=== PATIENT | male | born 1945 | race Caucasian/White ===

== ENCOUNTER 2020-12-01 13:04 | Observation (INO) | payer MEDICARE, SELFPAY ==
--- NOTE | 2020-11-29 09:29 | EKG12_ITS ---
Test Reason : PREOP Blood Pressure : / mmHG Vent. Rate : 061 BPM Atrial Rate : 061 BPM P-R Int : 164 ms QRS Dur : 082 ms QT Int : 398 ms P-R-T Axes : 059 066 075 degrees QTc Int : 400 ms Normal sinus rhythm Normal ECG Confirmed by THERESA DE LA CRUZ, MARANDA ([id number]), managing editor LANCE TOWNSEND ([id number]) on 11/29/2020 2:19:45 PM Referred By: Julito Felder Confirmed By:MARANDA CARDENAS MD
[2020-11-29 10:40] LABS: Hematocrit 47.4 % (40-54); Hemoglobin 14.9 g/dL (13.0-16.5); Mean Corp Hgb Conc 31.4 g/dL (32-36); Mean Corpuscular Hgb 27.9 pg (27.0-32.0); Mean Corpuscular Volume 88.6 fL (80-94); Mean Platelet Vol. 9.9 fl (6.2-12.0); Platelet Count 150 K/mm3 (150-450); RBC Distribution Width CV 13.3 % (11.6-14.6); RBC Distribution Width SD 43.3 fl (35.1-43.9); Red Blood Count 5.35 M/mm3 (4.6-6.2); White Blood Count 25.8 K/mm3 (4.4-11.0)
[2020-11-29 11:18] LABS: Anion Gap 3 (5-15); BUN 18 mg/dL (7-18); BUN/Creat Ratio 14.6 RATIO (10-20); Chloride 110 mmol/L (98-107); Creatinine, Serum 1.23 mg/dL (0.70-1.30); EST Glomerular Filtration Rate 61 mL/min (>60); Est Glom Filt Rate - Afr Amer 74 mL/min (>60); Glucose 75 mg/dL (74-106); Potassium 4.1 mmol/L (3.5-5.1); Sodium Level 143 mmol/L (136-145)
[2020-12-01] VITALS (15 sets, daily range): BP systolic 109–140; BP diastolic 54–76; PULSE 51–84; RESP 12–16; TEMP 36–37; O2SAT 94–98; BMI 23.2
--- NOTE | 2020-12-01 | PROS_PTH ---
PATIENT: RICHARDSON CARVALHO LOC: MS3 U#:[id number] AGE/SX: 75/M ROOM: NE318 RE12/01/[address]: Dr. Julito Felder MD : 1945 BED: 1 DIS: 12/03/2020 SPEC #: [id number] RECD: 12/01/20 14:56 STATUS: MEGAN MAY #: [id number] NAOMIE: 12/01/20 00:[address]: Julito Felder DEPT: SURGICAL PATHOLOGY RECD BY: Chacorta King ENTERED: 12/02/20 13:29 SP TYPE: TURP OTHR DR: Dr. Waldemar Mack MD Tissues: Prostate, NOS Procedures: Surgery Specimen Level IV HEADER OPERATION: Cysto, TUR prostate, Olympus PRE-OP DIAGNOSIS: BPH, elevated PSA, retention of urine TISSUE SUBMITTED: Prostate tissue MICROSCOPIC DIAGNOSIS Prostate tissue, TUR: Benign prostatic hyperplasia, glandular and stromal type. 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 Focal basal cell hyperplasia. See comment. SJ:brittany 12/06/2020 COMMENT Immunohistochemistry ([id number]) supports the above diagnosis. This case is discussed with Dr. Felder on 12/06/2020. Case has been reviewed in consultation with Dr. Man who concurs with the above diagnosis. IDC:AM MICROSCOPIC DESCRIPTION Slides are reviewed. GROSS DESCRIPTION Received is one container labeled with the patient's name and designated prostate tissue. The specimen consists of multiple irregular fragments of pink-yarbrough, rubbery, soft tissue that in aggregate weigh 13.4 gm and measure in aggregate 6 x 6 x 0.7 cm. Tube Carrier portions are submitted in ten cassettes. / AM:brittany 12/02/20 TC:0 CPT: 96856
--- NOTE | 2020-12-01 | IMM_PTH ---
PATIENT: RICHARDSON CARVALHO LOC: MS3 U#:[id number] AGE/SX: 75/M ROOM: MD318 RE12/01/[address]: Dr. Julito Felder MD : 1945 BED: 1 DIS: 12/03/2020 SPEC #: [id number] RECD: 12/03/20 13:24 STATUS: MEGAN REQ #: [id number] NAOMIE: 12/01/20 00:[address]: uJlito Feledr DEPT: IMMUNOHISTOCHEMISTRY RECD BY: Lina Monaco ENTERED: 12/03/20 13:28 SP TYPE: IMMUNO OTHR DR: Dr. Waldemar Mack MD Tissues: Prostate, NOS Procedures: BCL-2 (add) BCL-6 (add) CD10 (add) CD20 (add) CD23 (add) CD43 (add) CD45 (add) CD5 (add) CD79A (add) CYCLIN (add) KI-67 (add) CD3 (initial) PHYSICIAN & [address] [address] SPECIMEN INFORMATION: Tissue Source: Prostate tissue Clinical Info: BPH, elevated PSA, retention of urine Specimen Number: [id number] #4 CPT code: 58885, 78521 x11 METHODOLOGY: Deparaffinized sections of prefer/formalin-fixed tissue or PAP/DQ stained slides are incubated with monoclonal/polyclonal antibodies/oligonucleotide probes. Localization is made via biotin free immunoperoxidase method. Appropriate controls are performed and reacted as expected. Results on target cell population are indicated in the following table: RESULTS: ANTIBODY / CLONE RESULT Block 4 CD3 (PS1) negative CD5 (SP10) positive CD10 (56C6) negative CD20 (L26) positive CD23 (1B12) positive CD43 (L60) positive CD45 (RP2/18) positive CD79a (11E3) positive BCL-2 (bcl-2/100/D5) positive BCL-6 (MU964A/A8) negative Cyclin D1/BCL-1 (SP4) negative Ki-67 (30-9) positive, low These tests were developed and their performance characteristics determined by [facility]. They may not have been cleared or approved by the U.S. Food and Drug Administration. The FDA has determined that such clearance or approval is not necessary. The above immunohistochemical/dualISH markers are ordered and reviewed by the Pathologist. 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 This case has been reviewed in consultation with Dr. Man who concurs with the above diagnosis. SJ:brittany 12/06/2020
[2020-12-01] MEDS: Lactated Ringers 1,000 ML 100 ML IV ×2 (10:51→14:51)
[2020-12-01] MEDS: Cefazolin 2 GM in 0.9% Normal Saline 100 ML IV (12:10)
--- NOTE | 2020-12-01 13:04 | PCM.HP.STD ---
HPI - General HPI Narrative RICHARDSON CARVALHO, is a 75 M who presents for transurethral resection of prostate he has obstructive large prostate PFSH Medical History (Updated 12/01/20 @ 13:[address] Julito Felder MD) Cardiology follow-up encounter COPD (chronic obstructive pulmonary disease) Easy bruising Former smoker Gastric reflux History of leukemia Prostate disease Wears glasses Home Medications aspirin 81 mg PO DAILY 11/24/20 [History Last Taken Unknown] atorvastatin 20 mg PO QHS 11/24/20 [History Last Taken Unknown] budesonide-formoterol [Symbicort] 2 puff INHALATION BID 11/24/20 [History Last Taken Unknown] famotidine 20 mg PO DAILY 11/24/20 [History Last Taken Unknown] metoprolol tartrate 12.5 mg PO BID 11/24/20 [History Last Taken Unknown] ciprofloxacin HCl [Cipro] 500 mg PO BID #14 tab 12/01/20 [Rx Last Taken Unknown] Allergy/AdvReac Type Severity Reaction Status Date / Time Sulfa (Sulfonamide Allergy Swelling Verified 12/01/20 10:43 Antibiotics) Surgical History (Updated 11/24/20 @ 11:30 by Bernadette Gusman) Status post heart valve replacement Status post incision and drainage Social History Smoking Status: Former smoker ROS Constitutional Constitutional: Denies chills, fever(s) or malaise Eyes Eyes: Denies blurry vision or change in vision ENT HEENT: Reports none Cardiovascular Cardiovascular: Denies chest pain or palpitations Respiratory/Chest Respiratory/Chest: Denies cough or shortness of breath with exertion Gastrointestinal Gastrointestinal: Denies abdominal pain, constipation or diarrhea Musculoskeletal Musculoskeletal: Denies back pain, joint stiffness or joint swelling Integumentary Integumentary: Denies dry skin, jaundice, lesions or rash Neurologic Neurologic: Denies confusion, syncope or weakness Psychiatric Psychiatric: Reports none; Denies anxiety or depression Endocrine Endocrinology: Denies excessive sweating, fatigue or flushing Hematologic/Lymphatic Hematologic/Lymphatic: Denies anemia, easy bleeding or easy bruising Vital Signs Vital Signs Vital Signs: 12/01/20 10:45 Temperature 97.7 F L Temperature Source Temporal Pulse Rate 63 Respiratory Rate 16 Respiratory Pattern Normal Blood Pressure 140/76 H Blood Pressure Mean 97 Blood Pressure Source Monitor Blood Pressure Position Semi-Fowlers Blood Pressure Location Left Arm Pulse Ox 97 Oxygen Delivery Method Room Air Weight Weight: 71.4 kg Body Mass Index (BMI) 23.2 Physical Exam Const alert and oriented x3 General Appearance: cooperative HEENT normocephalic, head/scalp atraumatic, EAC's normal and TM's normal bilaterally Eyes PERRL and EOMs intact bilaterally Pupil: sluggish Neck no lymphadenopathy, supple and no JVD General: trachea midline Lymph Lymphatic: no lymphadenopathy noted, lymphedema and lymphadenopathy Resp normal respiratory effort, normal air movement and clear to auscultation bilaterally Cardio regular rate, regular rhythm and peripheral pulses 2+ throughout GI soft to palpation, non-tender and non-distended Extremity normal capillary refill and no clubbing, cyanosis or edema General Extremity: no tenderness to palpation of joints or extremities Skin no rashes or lesions noted General Skin Exam: turgor normal Lesions: no lesions Rashes: no rashes Neuro CN's II-XII intact bilaterally Speech: speech normal Motor Exam: strength 5/5 throughout; Negative for general weakness Psych thought process normal, cooperative and affect normal Appearance: appropriate Results Lab / Micro Data Result Diagrams: 11/29/20 09:18 11/29/20 09:18 Assessment & Plan Assessment/Plan (1) BPH with obstruction/lower urinary tract symptoms: PLAN: Plan to proceed with a TURP
--- NOTE | 2020-12-01 13:05 | OP.PCM_ITS ---
Report of Operation Date of Procedure: 12/01/20 Pre-Operative Diagnosis: BPH with obstruction Post-Operative Diagnosis: Same Surgery/Procedure Performed:: Transurethral resection of the prostate Description of Surgical Findings:: In the preoperative setting I discussed with the patient how the surgery would be done with expect afterwards. We discussed how a prostate resection is done and we discussed the risk of the surgery including, bleeding, infection, retrograde ejaculation, changes with ejaculation or intercourse,. We discussed the possibility that the resection of the prostate may not alleviate his urinary symptoms. We discussed the small risk of developing scar tissue along the urethral channel and strictures. We also discussed the chance of the prostate could grow back and he may need further surgery or treatment in the future for prostate problems. Patient was taken back to the operating room, timeout procedure was performed, he was identified and marked and placed on the operating room table. He underwent general anesthesia. He was placed in dorsolithotomy position. Penis and testicles were prepped and draped in usual sterile fashion. Went into the bladder using the visual obturator with a resectoscope. Once inside the bladder identified the right and left ureteral orifice. I then identified the prostate and the anatomy of the prostate. I marked out the area of the sphincter and the verumontanum was identified. I then proceeded with the prostate resection first resected the median lobe. And then resected the right lobe of the prostate. Then to resect the left lobe of the prostate. I then resected the apical tissue of the prostate. Made sure that there was no injury to the sphincter or the verumontanum was still intact. At the end of the resection all the chips were Ellik out of the bladder. I then identified the left and right ureteral orifice and these were confirmed to be in good position and effluxing and not injured. The resectoscope was removed, a 22 Anguillan catheter was placed into the bladder on continuous irrigation. And the urine was fairly light pink color and draining normally. He was taken back to the PACU in good condition. Surgeon: Julito Felder Type of Anesthesia: General Drains: 22 Anguillan three-way catheter Admit VTE Documentation VTE Present on Admission: No VTE Mechan Device Prophylaxis: SCD's
--- NOTE | 2020-12-01 13:05 | PCM.DC ---
Discharge Instructions Diet Discharge Diet: No restrictions Activity Discharge Activity: Return to Normal Activity and May Not Drive (while taking narcotic pain medications.) Dressing / Incision Call your doctor if you observe: Fever of 101 or Higher Follow Up Care Please Follow Up With: Julito Felder MD When: Call [phone] for an appointment Test Results: Test results from this visit will be discussed in further detail at your follow-up appointment, if applicable. Discharge Plan Admission Primary Reason for Your Visit: turp Attending Provider: Julito Felder Consulting Providers: Waldemar Mack Discharge Orders/Prescriptions Prescriptions: New ciprofloxacin HCl [Cipro] 500 mg tablet 500 mg PO BID Qty: 14 RF: 0 Continued atorvastatin 20 mg Tablet 20 mg PO QHS RF: 0 famotidine 20 mg Tablet 20 mg PO DAILY RF: 0 metoprolol tartrate 25 mg Tablet 12.5 mg PO BID RF: 0 budesonide-formoterol [Symbicort] 160-4.5 mcg/actuation Hfa Aerosol Inhaler 2 puff INHALATION BID RF: 0 Held aspirin 81 mg Tablet 81 mg PO DAILY RF: 0 Hold Instructions: Resume on 12/15/20. Discontinued tamsulosin 0.4 mg Capsule 0.4 mg PO BID RF: 0 finasteride 5 mg Tablet 5 mg PO DAILY RF: 0 Other Ambulatory Orders: 12 Lead EKG (Routine) Timeframe: [id number] Location: None Selected Ordered By: Dr. Waldemar Mack Referrals / Follow Up: cynthia wolf [Other] Julito Felder MD [STAFF PHYSICIAN] - Disposition Disposition (needs filled in before D/C Order can be placed): Home, Self Care
[2020-12-01] MEDS: Ketorolac 15 MG/ML Vial IV (17:48)
[2020-12-01] MEDS: 0.9% Normal Saline 1,000 ML 125 ML IV (17:48)
[2020-12-01] MEDS: 0.9% Normal Saline 1,000 ML 999 ML IV (18:26)
[2020-12-01] MEDS: Albuterol 2.5 MG/3 ML VIAL.NEB. INHALATION (19:17)
[2020-12-01] MEDS: Budesonide Respules 0.5 MG/2 ML AMPUL.NEB. INHALATION (19:17)
[2020-12-01] MEDS: HYDROcodone Bitartrate/Apap 5/325 Tablet PO (21:04)
[2020-12-01] MEDS: Metoprolol Tartrate 25 MG Tablet 12.5 MG PO (21:05)
[2020-12-01] MEDS: Ciprofloxacin 400 MG/200 ML BAG 200 MG IV (21:05)
[2020-12-01] MEDS: Atorvastatin Calcium 20 MG Tablet PO (21:05)
[2020-12-02] VITALS (10 sets, daily range): BP systolic 103–133; BP diastolic 50–68; PULSE 53–71; RESP 16–18; TEMP 36.4–36.9; O2SAT 93–97; BMI 23.2
[2020-12-02] MEDS: 0.9% Normal Saline 1,000 ML 125 ML IV ×3 (03:50→21:41)
[2020-12-02] MEDS: Budesonide Respules 0.5 MG/2 ML AMPUL.NEB. INHALATION ×2 (07:18→18:48)
[2020-12-02] MEDS: Albuterol 2.5 MG/3 ML VIAL.NEB. INHALATION ×2 (07:18→18:48)
[2020-12-02] MEDS: Ciprofloxacin 400 MG/200 ML BAG 200 MG IV (08:40)
[2020-12-02] MEDS: Famotidine 20 MG Tablet PO (08:42)
--- NOTE | 2020-12-02 09:45 | NURSING ---
Patient reports he is nauseated and dizzy. He requests something for nausea. See mar. will continue to monitor.
[2020-12-02] MEDS: Ondansetron 4 MG/2 ML Vial IV (09:57)
--- NOTE | 2020-12-02 10:41 | PHA.DC.MC ---
Pharmacy Service has performed discharge medication reconciliation and counseling for this patient. The patient was counseled on the following discharge medications and changes in medications for homegoing were reviewed. 1. CIPROFLOXACIN The Reason for Use, instructions for use, and potential side effects were reviewed for all new medications. The patient's questions regarding all of their medications were answered. The patient was able to verbally demonstrate an understanding of their discharge medications. Home Medications aspirin 81 mg PO DAILY 11/24/20 atorvastatin 20 mg PO QHS 11/24/20 budesonide-formoterol [Symbicort] 2 puff INHALATION BID 11/24/20 famotidine 20 mg PO DAILY 11/24/20 metoprolol tartrate 12.5 mg PO BID 11/24/20 ciprofloxacin HCl [Cipro] 500 mg PO BID #14 tab 12/01/20 The patient's discharge medication list was reviewed for discrepancies and discrepancies were resolved.
--- NOTE | 2020-12-02 14:47 | NURSING ---
This RN reviewed SN charting
[2020-12-02] MEDS: Metoprolol Tartrate 25 MG Tablet 12.5 MG PO (21:51)
[2020-12-02] MEDS: Atorvastatin Calcium 20 MG Tablet PO (21:51)
[2020-12-03 02:58] VITALS: BP 114/67; PULSE 63; RESP 15; TEMP 36.8; O2SAT 98
[2020-12-03] MEDS: 0.9% Normal Saline 1,000 ML 125 ML IV (05:42)
[2020-12-03 07:44] VITALS: PULSE 61; RESP 16; O2SAT 94
[2020-12-03] MEDS: Budesonide Respules 0.5 MG/2 ML AMPUL.NEB. INHALATION (07:44)
[2020-12-03] MEDS: Albuterol 2.5 MG/3 ML VIAL.NEB. INHALATION (07:44)
[2020-12-03 08:03] VITALS: BP 121/62; PULSE 69; RESP 16; TEMP 36.6; O2SAT 94
[2020-12-03 08:05] VITALS: PULSE 69
[2020-12-03] MEDS: Famotidine 20 MG Tablet PO (08:05)
[2020-12-03] MEDS: Metoprolol Tartrate 25 MG Tablet 12.5 MG PO (08:05)
== END 2020-12-03 09:53 | disposition home or self-care (01) ==
LOC: SDC 13:16 → MS3 13:16
PROVIDERS: Anesthesiology; Admitting Provider Urology; Referring Provider Urology; Visit Provider Urology
PROC: (CPT 52601; principal; 2020-12-01 12:25)
DX: N40.1 Benign prostatic hyperplasia with lower urinary tract symptoms (principal); N13.8 Other obstructive and reflux uropathy; J44.9 Chronic obstructive pulmonary disease, unspecified; K21.9 Gastro-esophageal reflux disease without esophagitis; Z87.891 Personal history of nicotine dependence; Z86.2 Personal history of diseases of the blood and blood-forming organs and certain disorders involving the immune mechanism; Z85.6 Personal history of leukemia; Z79.51 Long term (current) use of inhaled steroids; Z79.82 Long term (current) use of aspirin; Z79.899 Other long term (current) drug therapy; Z95.2 Presence of prosthetic heart valve
CPT/HCPCS: 00914; 52601; 36415; 80048; 85027; 88305; 88341; 88342; 93005; 94640; 96361; 96365; 96366; 96375; 99218; 99251; J7030; J7120; G0378; G0379; G0463; J0744; J2405

== ENCOUNTER → 2021-01-05 14:32 | Outpatient (CLI) | payer MEDICARE, SELFPAY ==
--- NOTE | 2021-01-05 14:45 | CT_ITS ---
INDICATION: CLL EXAMINATION: CT Chest Abdomen And Pelvis W/ Contrast Injection TECHNIQUE: Images were obtained of the chest, abdomen and pelvis following IV contrast. A radiation dose optimization technique was used for this scan. IV Contrast dosage and agent: Oral and amp; IV REDICAT and amp; 100ML ISOVUE 370 COMPARISON: None. FINDINGS: Lungs: Marked centrilobular emphysematous changes. Right apical pleural scarring. Few scattered tiny solid pulmonary nodules including a 3 mm nodule in the right lower lobe (axial image 88), a 4 mm solid nodule in the right middle lobe (axial image 71) and a 3 mm solid nodule in the left lung base (axial image 101). Mediastinum: The cardiomediastinal silhouette is not enlarged. No mediastinal, hilar or axillary adenopathy. Mild aortic arch and coronary artery calcifications. No obvious filling defect seen within the visualized pulmonary arteries. Pleura: Right apical pleural scarring. Liver: 1.8 cm simple cyst in the left hepatic lobe. Gallbladder: Contracted. Spleen: Subcentimeter hypodensity in the anterior aspect of the spleen is too small characterize. Pancreas: Unremarkable Adrenal Glands: Unremarkable Kidneys: Scattered too small to characterize subcentimeter hypodensities bilaterally. Vasculature: Mild scattered aortoiliac atherosclerotic calcifications. GI Tract: There is irregular asymmetric wall thickening of the greater curvature of the stomach. There is also asymmetric wall thickening of the third and fourth portions of the duodenum. Lymphadenopathy: There is gastric, periduodenal and retroperitoneal lymphadenopathy, for example a 3.6 x 2.1 cm gastric lymph node conglomerate (axial image 25). Peritoneum: No ascites. Bladder: Unremarkable Reproductive organs: The prostate is markedly enlarged. Status post prostatic urethra dilatation. Bones/Soft tissues: There are diffuse degenerative changes of the spine. CT/CT Chest, Abd, Pel w/Contrast IMPRESSION: Irregular asymmetric wall thickening of the greater curvature of the stomach and third/fourth portion of the duodenum. This is concerning for leukemic infiltrates and/or plaques in this patient with known CLL. There is also gastric, periduodenal and retroperitoneal lymphadenopathy. Marked prostatomegaly with evidence of prostatic urethral dilatation. Scattered 3 to 4 mm solid pulmonary nodules throughout the bilateral lungs. Electronically Signed: Sidney Braxton MD at 23:38 EDT Tel , Service support ,
== END ==
PROVIDERS: PCP Internal Medicine Infectious Disease; Referring Provider Internal Medicine Medical Oncology; Visit Provider Internal Medicine Medical Oncology
DX: C91.10 Chronic lymphocytic leukemia of B-cell type not having achieved remission (principal)
CPT/HCPCS: 71260; 74177; Q9967

== ENCOUNTER → 2022-04-25 | Outpatient (CLI) | payer MEDICARE, SELFPAY ==
[2022-04-25 16:44] LABS: PSA,Total- Diagnostic 8.46 ng/mL (0.0-4.0)
== END | disposition home or self-care (01) ==
LOC: LAB 15:33
PROVIDERS: PCP Internal Medicine Infectious Disease; Referring Provider Urology; Visit Provider Urology
DX: N40.1 Benign prostatic hyperplasia with lower urinary tract symptoms (principal)
CPT/HCPCS: 36415; 84153

== ENCOUNTER → 2022-12-25 | Outpatient (CLI) | payer MEDICARE, SELFPAY ==
--- NOTE | 2022-12-25 13:10 | CT_ITS ---
STUDY: CT CHEST, ABDOMEN T PELVIS WITH CONTRAST REASON FOR EXAM: Male, 77 years old. RESTAGING CLL-IV ONLY RADIATION DOSAGE (If Supplied By Facility): CTDIvol = ( 10.62 ) mGy, DLP = ( 1018.02 ) mGycm TECHNIQUE: Transaxial imaging was performed following intravenous administration of IV 100mL Isovue-370. Multiplanar coronal and sagittal images were reformatted. Individualized dose optimization techniques were used for this CT. COMPARISON: Comparison is made with prior examination dated January 05, 2021. FINDINGS: CHEST Hyperinflation. Diffuse emphysematous changes more prominent in the upper lobes. Stable 2 mm noncalcified nodule in the peripheral lateral aspect of the right lower lobe as seen on axial image #96. Stable 3 mm nodule in the right middle lobe. Stable 3 mm nodule in the left lower lobe. There is no demonstrated pleural abnormality. Sternal cerclage wires and vascular clips are present from a prior sternotomy and coronary artery bypass graft procedure (CABG). There are calcifications of the coronary arteries. There are small lymph nodes within the mediastinum, which are normal in size and morphology most compatible with reactive lymph hyperplasia. Normal hilar regions. Normal unenhanced pulmonary arteries. Normal aorta arch and descending thoracic aorta. Normal osseous structures. ABDOMEN Stable 1.8 cm simple cyst in the left lobe of the liver. Normal gallbladder and extrahepatic biliary system. Normal spleen. Normal pancreas. Normal bilateral adrenal glands. Stable 2 cm cyst in the right kidney. Normal left kidney. Normal visualized stomach. Normal small intestine. Normal colon. The appendix is visualized and appears normal. There is diffuse atherosclerotic calcification of the abdominal aorta and its major visceral branches, without a demonstrated aneurysm. Normal inferior vena cava. There is borderline retroperitoneal lymphadenopathy with enlarged nodes no greater than 10mm in the short axis diameter. Normal abdominal wall. There are diffuse degenerative changes of the visualized lumbar spine. PELVIS Normal urinary bladder. Heterogeneous enlargement of the prostate with the indentation at the bladder base and calcification. There is no pelvic fluid. There is no pelvic lymphadenopathy or mass lesion. There is diffuse atherosclerotic calcification of the pelvic arteries. CT/CT Chest, Abd, Pel w/Contrast IMPRESSION: Essentially stable examination. Electronically Signed: Juma Lombardi MD at 15:42 EDT ,
--- NOTE | 2022-12-25 13:10 | CT_ITS ---
STUDY: CT SOFT TISSUE NECK WITH CONTRAST REASON FOR EXAM: Male, 77 years old. RESTAGING CLL RADIATION DOSAGE (If Supplied By Facility): CTDIvol = ( 10.62 ) mGy, DLP = ( 1018.02 ) mGycm TECHNIQUE: The patient was scanned in a multi-detector CT scanner. High resolution transaxial imaging was performed following intravenous administration of IV 100mL Isovue-370. Sagittal and coronal images were reconstructed. Individualized dose optimization techniques were used for this CT. COMPARISON: None. FINDINGS: There is a 9 mm by 12.8 mm x 13.6 mm slightly irregular and enhancing nodule in the deep inferior medial portion of the right parotid gland. Normal bilateral delivery manager spaces. Normal bilateral parapharyngeal spaces. Normal bilateral carotid spaces. Normal bilateral sublingual and submandibular glands and spaces. Normal visualized nasopharynx. Normal retropharyngeal space. Normal perivertebral space. Normal visualized bilateral faucial tonsils. The visualized tongue, tongue base and oropharynx are normal. The visualized cervical lymph nodes (levels I-) are within normal size limits, and maintain normal morphology. There is no demonstrated solid or cystic mass lesion. There is no abnormal contrast enhancement. Normal epiglottis, bilateral vallecula and hypopharynx. The pre-epiglottic and paraglottic adipose spaces are normal. Normal visualized bilateral piriform sinuses, aryepiglottic folds, vocal cords, and arytenoid-cricoid articulations. Normal subglottic trachea. Normal bilateral lobes of the thyroid gland. Normal visualized pulmonary apices. Mucosal thickening of the ethmoid sinuses. There is multilevel degenerative changes of the cervical spine. CT/Soft Tissue Neck WITH Contrast IMPRESSION: 9 mm x 12.8 mm x 13.6 mm slightly irregular and enhancing nodule in the deep inferior medial portion of the right parotid gland. Electronically Signed: Juma Lombardi MD at 15:36 EDT ,
[2022-12-25 13:42] LABS: CREATININE FINGERSTICK 1.3 mg/dL (0.70-1.30)
== END | disposition home or self-care (01) ==
PROVIDERS: PCP Internal Medicine Infectious Disease; Referring Provider Internal Medicine Medical Oncology; Visit Provider Internal Medicine Medical Oncology
DX: C91.10 Chronic lymphocytic leukemia of B-cell type not having achieved remission (principal); R79.89 Other specified abnormal findings of blood chemistry
CPT/HCPCS: 70491; 71260; 74177; Q9967

== ENCOUNTER → 2023-01-18 | Outpatient (CLI) | payer MEDICARE, SELFPAY ==
--- NOTE | 2023-01-18 09:45 | RAD_ITS ---
STUDY: X-RAY - ESOPHAGUS (BARIUM SWALLOW) WITH FLUOROSCOPY REASON FOR EXAM: Male, 77 years old. DYSPHAGIA TECHNIQUE: 18 view(s) of the esophagus were obtained following swallowing of barium. FLUOROSCOPY TIME (if supplied): (34 seconds) minutes/seconds. 18 fluoroscopic images were obtained. COMPARISON: None. FINDINGS: There is no demonstrated esophageal foreign body. There is no demonstrated stricture or mucosal abnormality. Normal gastroesophageal junction, without a demonstrated hiatal hernia. The patient ingested a 12 mm tablet of barium without any difficulty. Incidental note is made of mild degree of aspiration of the thin liquids. Normal visualized aortic arch and descending thoracic aorta. Normal visualized pulmonary parenchyma. There are diffuse degenerative changes of the visualized thoracic spine. RAD/Esophagus Dual Contrast IMPRESSION: Normal plain film x-ray examination (barium swallow) of the esophagus. Mild aspiration of the ingested fluids. Electronically Signed: Juma Lombardi MD at 14:19 EDT ,
== END | disposition home or self-care (01) ==
LOC: RAD 09:36
PROVIDERS: PCP Internal Medicine Infectious Disease; Referring Provider Otolaryngology; Visit Provider Otolaryngology
DX: R13.10 Dysphagia, unspecified (principal)
CPT/HCPCS: 74221

== ENCOUNTER → 2023-01-22 | Outpatient (CLI) | payer MEDICARE, SELFPAY ==
--- NOTE | 2023-01-22 | ASPOS_PTH ---
PATIENT: RICHARDSON CARVALHO LOC: [facility] U#:[id number] AGE/SX: 77/M ROOM: RE01/22/[address]: Dr. Ronal Gurrola MD : 1945 BED: DIS: 01/22/2023 SPEC #: [id number] RECD: 01/22/23 10:38 STATUS: MEGAN MAY #: [id number] NAOMIE: 01/22/23 00:[address]: Ronal Gurrola DEPT: CYTOLOGY RECD BY: Chacorta King ENTERED: 01/22/23 10:38 SP TYPE: ASP HERE OTHR DR: Dr. Shira Lopez MD Tissues: Parotid gland, NOS Procedures: Surgery Specimen Level IV Cytology Other Fine Needle Asp on Site HEADER OPERATION: Fine needle aspiration, right parotid mass PRE-OP DIAGNOSIS: Right parotid mass TISSUE SUBMITTED: Right parotid mass DIAGNOSIS CYTOLOGY Fine needle aspiration, right parotid mass (smears and cell block): Oncocytic neoplasm consistent with Warthin's tumor. AM:brittany 01/23/2023 COMMENT A fine needle aspiration was performed and the specimen is evaluated at the time of FNA by Dr. Man. Immediate Evaluation = Oncocytic neoplasm consistent with Warthin's tumor. CYTOLOGY STUDY Slides are reviewed. CYTOLOGY GROSS Received is 0.2 ml of reddish fluid labeled with the patient's name, and designated right parotid mass. Six imprints and four paps are made from the submitted fluid and the rest is added to CytoLyt for cell block preparation. Submitted for cytology study. / AM:brittany 01/22/2023 TC:1 CPT: 94391, 52738, 38306, 27630
== END | disposition home or self-care (01) ==
PROVIDERS: PCP Internal Medicine Infectious Disease; Referring Provider Otolaryngology; Visit Provider Otolaryngology
DX: D11.9 Benign neoplasm of major salivary gland, unspecified (principal)
CPT/HCPCS: 10021; 88161; 88305

== ENCOUNTER 2024-11-20 07:41 | Outpatient (CLI) | payer MEDICARE, SELFPAY ==
[2024-11-20] VITALS (15 sets, daily range): BP systolic 95–144; BP diastolic 51–92; PULSE 64–91; RESP 16–23; TEMP 36.5; O2SAT 90–99; BMI 20.5
[2024-11-20 08:19] LABS: Prothrombin Time (Protime)PT. 13.0 SECONDS (11.7-14.9)
[2024-11-20 08:20] LABS: Partial Thromboplast Time 26.9 Seconds (24.1-36.2)
[2024-11-20] MEDS: 0.9% Saline Lock 10 ML Syringe IV (08:26)
[2024-11-20] MEDS: Midazolam 2 MG/2 ML Syringe IV (09:08)
[2024-11-20] MEDS: fentaNYL 100 MCG/2 ML Ampul IV (09:09)
--- NOTE | 2024-11-20 09:10 | CT_ITS ---
EXAM: CT-guided biopsy of the right upper lobe mass. CLINICAL HISTORY: Right upper lobe pulmonary mass. COMPARISON: Prior PET scan dated November 04, 2024. TECHNIQUE: Dose report: CTDI L volume: 18.99. DLP: 302.79 CT-guided core biopsy of the right upper lobe nodule. The patient was in the supine position. Conscious sedation was performed. The patient received 2 mg of Versed and 50 mcg of fentanyl intravenously. Conscious sedation was started at 9:08 a.m. and terminated at 9:35 a.m.. The patient was independently monitored by the department nurse. The overlying skin was prepped and draped in the usual sterile fashion. Following local anesthetic application and direct fluoroscopic guidance, a 20 gauge core biopsy needle was placed into the mass in the right upper lobe. 9 core biopsies were obtained. The specimen was deemed adequate by the pathologist. The patient tolerated the procedure well. No immediate complication is seen. FINDINGS: CT-guided core biopsies of the right upper lobe nodule. CT/Biopsy/Inj or Needle Placement IMPRESSION: Successful CT-guided core biopsies of the right upper lobe pulmonary nodule. The patient tolerated the procedure well. Reading Location: [place] [address]
[2024-11-20] MEDS: Lidocaine 2% (20 ml mdv) 20 ML Vial INFILT (09:24)
--- NOTE | 2024-11-20 09:30 | ASPIGT_PTH ---
PATIENT: RICHARDSON CARVALHO LOC: CT U#:[id number] AGE/SX: 79/M ROOM: RE11/20/[address]: JAROD Pro : 1945 BED: DIS: 11/20/2024 SPEC #: [id number] RECD: 11/20/24 09:45 STATUS: MEGAN REBlaise #: [id number] NAOMIE: 11/20/24 09:[address]: Billie Del Rio NP DEPT: SURGICAL PATHOLOGY RECD BY: Christian Rucker ENTERED: 11/20/24 10:28 SP TYPE: ASP RAD OTHR DR: Dr. Shira Lopez MD Tissues: A - Lung, NOS Procedures: FNA Specimen Adequacy Special Stain Group II Surgery Specimen Level IV Imprint (control) HEADER OPERATION: Right lung biopsy PRE-OP DIAGNOSIS: Lung mass - right middle lobe TISSUE SUBMITTED: A- Lung nodule - 20 gauge x 9 cores MICROSCOPIC DIAGNOSIS A. Right lung, middle lobe, mass, CT-guided core biopsy: - Fibrosis, mild chronic inflammation, anthracosis - see Comment. - Negative for malignancy - see note. Note: Recommend correlation with clinical and imaging findings. COMMENT Selected slides/images were reviewed in intradepartmental consultation by Dr Demond Leon (thoracic pathology division, [facility]). MICROSCOPIC DESCRIPTION Slides are reviewed. The specimen is evaluated at the time of biopsy by Dr. Macario. Immediate Evaluation = 1. Right upper lobe - Few epithelial cells and macrophages. 2. Right lower lobe - Scant cellularity. 3. Scant cellularity. 4. Blood. GROSS DESCRIPTION A. Received in formalin labeled with the patient's name and date of are multiple yarbrough-red tissue core fragments, <0.1 cm to 0.4 cm in length by <0.1 cm in diameter. Touch preparations are made. Entirely submitted in 1 cassette. [place] 11/20/2024 CPT:99724,69609
--- NOTE | 2024-11-20 09:40 | RAD_ITS ---
EXAM: XR Chest, 1 View CLINICAL INDICATION: POST LUNG BIOPSY TECHNIQUE: Frontal view of the chest with expiration and inspiration. COMPARISON: No relevant prior studies available. FINDINGS: LUNGS AND PLEURAL SPACES: Patchy airspace disease of the right upper lung field could be secondary to recent procedure. Small right apical pneumothorax. Hyperlucent lungs. Flattening of the diaphragm. HEART: Unremarkable. No cardiomegaly. MEDIASTINUM: Unremarkable. Normal mediastinal contour. BONES/JOINTS: Unremarkable. No acute fracture. RAD/Chest Insp/Exp 2 View IMPRESSION: 1. Patchy airspace disease of the right upper lung field could be secondary to recent procedure. Small right apical pneumothorax. 2. Suggestion of COPD. Reading Location: [facility]
--- NOTE | 2024-11-20 11:25 | RAD_ITS ---
EXAM: Inspiration expiration views. CLINICAL HISTORY: Status post right lung biopsy. COMPARISON: Prior study done earlier in the day. TECHNIQUE: Inspiration expiration views. FINDINGS: Stable small right apical pneumothorax following the biopsy. The patient is asymptomatic. RAD/Chest Insp/Exp 2 View IMPRESSION: Stable small right apical pneumothorax following the right lung biopsy. The pa tient is asymptomatic. Reading Location: [place] [id number]
== END 2024-11-20 23:59 | disposition home or self-care (01) ==
PROVIDERS: Radiology Diagnostic Radiology; PCP Internal Medicine Infectious Disease; Referring Provider Nurse Practitioner Family; Visit Provider Nurse Practitioner Family
DX: Z01.818 Encounter for other preprocedural examination (principal); J60 Coalworker's pneumoconiosis; R91.1 Solitary pulmonary nodule
CPT/HCPCS: 32408; 36415; 71046; 77012; 85610; 85730; 88172; 88305; 88313; 99156; A4216; C2613

== ENCOUNTER → 2024-11-26 | Outpatient (CLI) | payer MEDICARE, SELFPAY | END | disposition home or self-care (01) | LOC: PSN 09:10 | PROVIDERS: PCP Internal Medicine Infectious Disease; Referring Provider Internal Medicine Critical Care Medicine; Visit Provider Internal Medicine Critical Care Medicine | DX: J44.9 Chronic obstructive pulmonary disease, unspecified (principal) | CPT/HCPCS: 94060; 94726; 94729 ==

== ENCOUNTER → 2024-11-27 | Outpatient (CLI) | payer MEDICARE, SELFPAY ==
[2024-11-27 12:56] VITALS: PULSE 100; PULSE 101; PULSE 102; PULSE 86; PULSE 88; PULSE 99; O2SAT 93; O2SAT 95; O2SAT 96; O2SAT 98
--- NOTE | 2024-11-28 12:49 | PCM.PSN.6M ---
PSN 6 Minute Walk Test 6 Minute Walk Test 6 Minute Walk Test: 6 Minute Walk Test PSN:6-Minute Walk Test Start: 11/27/24 12:55 Freq: Status: Active Protocol: RESP.6MINW Document 11/27/24 12:56 DEEPAK (Rec: 11/27/24 12:57 [email or web address] [id number]) 6 Minute Walk Test Date Performed 11/27/24 Time Performed 12:15 Height 5 ft 8 in Weight: 134 lb Weight in Pounds 134.[address]: Magdi Marie Assistive device None used: Pre-test Oxygen Delivery Room Air Method Pulse Ox (%) 96 Pulse Rate (60-100 86 beats/min) Dyspnea Tyler Scale ( 1 0-10) Exertion Tyler Scale 6 (6-20) 1st minute Oxygen Delivery Room Air Method Pulse Ox (%) 96 Pulse Rate (60-100 100 beats/min) 2nd minute Oxygen Delivery Room Air Method Pulse Ox (%) 95 Pulse Rate (60-100 102 H beats/min) 3rd minute Oxygen Delivery Room Air Method Pulse Ox (%) 95 Pulse Rate (60-100 101 H beats/min) 4th minute Oxygen Delivery Room Air Method Pulse Ox (%) 93 Pulse Rate (60-100 99 beats/min) 5th minute Oxygen Delivery Room Air Method Pulse Ox (%) 95 Pulse Rate (60-100 101 H beats/min) 6th minute Oxygen Delivery Room Air Method Pulse Ox (%) 96 Pulse Rate (60-100 100 beats/min) Dyspnea Tyler Scale ( 4 0-10) Exertion Tyler Scale 13 (6-20) Post-test Oxygen Delivery Room Air Method Pulse Ox (%) 98 Pulse Rate (60-100 88 beats/min) Full Laps Walked 18 Partial Lap, Number 6 of Tiles Walked Total Distance 1068 Walked (ft) Interpretation Interpretation: The patient ambulated 1068 feet over the course of 6 minutes beginning on room air without assistive devices. Pretesting oxygen saturation was noted to be 96% on room air. With ambulation, the haily oxygen saturation was 93%. There was no significant exertional oxygen desaturation. Recommendations Recommendations: There is no indication for the use of supplemental oxygen at this time.
== END | disposition home or self-care (01) ==
LOC: PSN 12:08
PROVIDERS: PCP Internal Medicine Infectious Disease; Referring Provider Internal Medicine Critical Care Medicine; Visit Provider Internal Medicine Critical Care Medicine
DX: J44.9 Chronic obstructive pulmonary disease, unspecified (principal)
CPT/HCPCS: 94618

== ENCOUNTER 2024-12-23 09:23 | Emergency (ER) | payer MEDICARE, SELFPAY ==
[2024-12-23 09:23] VITALS: BP 154/81; PULSE 110; RESP 18; TEMP 36.2; O2SAT 98; BMI 20.9
--- NOTE | 2024-12-23 09:43 | EKG12_ITS ---
Test Reason : Blood Pressure : */* mmHG Vent. Rate : 89 BPM Atrial Rate : 89 BPM P-R Int : 152 ms QRS Dur : 90 ms QT Int : 348 ms P-R-T Axes : 40 73 79 degrees QTcB Int : 423 ms Normal sinus rhythm Normal ECG Confirmed by Gallo Phillip ([id number]), international editorial producer LANCE TOWNSEND ([id number]) on 12/24/2024 9:39:24 AM Referred By: Confirmed By: Gallo Phillip
--- NOTE | 2024-12-23 09:46 | EX.ED.DYSGE1 ---
HPI History of Present Illness Chief Complaint: Chest Pain Detail of Chief Complaint: Initially right-sided chest pain, pedal edema and cough Informant: patient Onset/Context/Timing Onset: Weeks (After lung biopsy 3 weeks ago) Context: Sudden Onset Timing: Intermittent (Varies pain is predominantly after coughing or taking a deep breath and occurs intermittently during the day) Quality: Sharp. Location: Initially right side of the chest now bilaterally Current Severity: Gone Maximum Severity: Severe (A sudden deep breath or a sudden hard cough) Worsened by: Documented under maximum severity Relieved by: Not applicable since his transient Associated Symptoms Associated Symptoms: Reports intermittent pedal edema the past couple of days Narrative Narrative: Patient is a 79-year-old male. He is status post multi valve repair and replacement, with history of B-cell chronic lymphocytic leukemia variant, fatigue, hypercholesterolemia, iron deficiency anemia, coronary artery disease, benign lung nodule and ICU admission [place] 3 months ago for pneumonia. Patient states he has not been well or the same since his admission for pneumonia. He denies fever or chills. He does complain of congestion which is chronic. He denies sore throat. He has slight hoarseness of his voice. His cough is nonproductive. Presently if he takes a deep breath he does not have pain. He does report shortness of breath at rest. That has been an issue for months. He may have be slightly more short of breath with activity the past week or 2. He has had intermittent pedal edema. He is not able to tell me if it is worse at night versus the morning. He states it is not always present. He is not sure what makes it better or worse. He has 3 pillow orthopnea since his admission at [place]. He denies history of congestive heart failure and review of records indicates he does not have history of heart failure. He has had an increase in weight. He was prescribed a new medicine for his COPD. He was on Symbicort. He states he feels much better since he was prescribed a new medicine 3 weeks ago. He denies black or maroon-colored stool. He denies urinary symptoms. He denies abdominal pain or back pain. He denies exertional chest pain, pressure tightness or heaviness. He denies PND. 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 History of leukemia Gastric reflux COPD (chronic obstructive pulmonary disease) Home Medications ?Medication ?Instructions ?Recorded ?Last Taken ?Type atorvastatin 20 mg tablet 20 mg PO QDAY 03/19/24 Unknown History famotidine 20 mg tablet 20 mg PO QDAY 03/19/24 Unknown History lactobacillus combination no.9 4 4,000 mmu cells PO QDAY 07/24/24 Unknown History billion cell capsule (Adult 50 Plus Probiotic) doxycycline hyclate 100 mg tablet 100 mg PO QDAY 10/02/24 Unknown History allopurinol 300 mg tablet 300 mg PO QDAY 30 days #30 tabs 12/04/24 Unknown Rx albuterol sulfate 90 mcg/actuation 2 puff inhalation Q4-6H PRN 12/05/24 Unknown Rx aerosol inhaler (ProAir HFA) shortness of breath or wheezing #8.5 grams fluticasone fur. 200 mcg-umeclid 1 inh inhalation Q24H #3 ea 12/09/24 Unknown Rx 62.5 mcg-vilant 25 mcg inhalat.powder (Trelegy Ellipta) ondansetron HCl 8 mg tablet 8 mg PO Q12H PRN nausea and 12/17/24 Unknown Rx vomiting #30 tabs Allergy/AdvReac Type Severity Reaction Status Date / Time Sulfa (Sulfonamide Allergy Swelling Verified 12/23/24 09:23 Antibiotics) Family History Brother Cancer Mother Heart disease Surgical History History of parotid gland removal Hx of transurethral resection of prostate (12/01/20) Status post incision and drainage Status post heart valve replacement Social History Smoking Status: Former smoker alcohol intake: never substance use type: does not use ROS ROS ED Constitutional Constitutional ED: Denies chills, fever(s), subjective, sweats or weight loss Eyes Eyes: Denies blurry vision or change in vision ENT ENT ED: Reports other Details: Further detailed HPI narrative ; Denies ear pain, rhinorrhea or sore throat Cardiovascular Cardiovascular: Reports chest pain, orthopnea and other Details: Further detailed HPI narrative ; Denies palpitations, paroxysmal nocturnal dyspnea or racing heartbeat Respiratory/Chest Respiratory/Chest: Reports cough, dyspnea, dyspnea on exertion, orthopnea and other Details: Further detailed HPI narrative ; Denies paroxysmal nocturnal dyspnea or sputum Gastrointestinal Gastrointestinal: Denies abdominal pain, diarrhea, nausea or vomiting Genitourinary Genitourinary ED: Denies dysuria, hematuria or urinary frequency Musculoskeletal Musculoskeletal: Denies arthralgias or myalgias Integumentary Denies rash Neurologic Neurologic: Denies headache(s), paresthesias or weakness Endocrine Endocrinology: Denies cold intolerance or heat intolerance Hematologic/Lymphatic Hematologic/Lymphatic: Reports systems reviewed and no addt'l complaints, except as documented Allergic/Immunologic Allergic/Immunologic ED: Denies mouth swelling or tongue swelling EXAM Physical Exam Const Vital Signs: 12/23/24 09:23 12/23/24 10:24 Temperature 97.1 F L Temperature Source Temporal Pulse Rate 110 H 92 Respiratory Rate 18 18 Blood Pressure 154/81 H Blood Pressure Mean 105 Pulse Ox 98 97 Oxygen Delivery Method Room Air Room Air Positive well nourished and well developed General Appearance ED: well developed and NAD; Negative for pallor HEENT Reports moist mucous membranes HEENT Narrative: Ears are normal. Nares are patent. Posterior pharynx is normal. Eyes PERRL and EOMs intact bilaterally General Eye ED: Negative for pale conjunctiva or scleral icterus Neck no lymphadenopathy, supple and no JVD Neck Narrative: Trachea is midline. There is no JVD. Chest Wall inspection of chest normal and palpation of chest normal Resp normal respiratory effort Resp Narrative: Patient is slightly tachypneic and breathing faster than 18 times a minute. His lungs are clear to auscultation. There is decreased air movement bilaterally. There is no wheezing even with forced expiration. Cardio regular rate, regular rhythm, S1 normal heart sound, S2 normal heart sound and no murmurs GI normal to inspection, nondistended, normoactive bowel sounds, non-tender, non-distended and no masses; Negative for hepatosplenomegaly Palpation: soft Back/Spine no CVA tenderness Extremity normal to inspection Extremity Narrative: There is no asymmetry, swelling, discoloration, leg vein distention, palpable cords or tenderness along the distribution of the deep venous system. General Extremety ED: Negative for edema or tenderness General Extremity: Negative for edema Neuro oriented x3, CN's II-XII intact bilaterally and no sensory deficits noted Motor Exam: strength 5/5 throughout Psych mental status grossly normal Skin no rashes or lesions noted, no wounds and skin turgor normal General Skin Exam: Negative for jaundice or pallor MDM MDM MDM Narrative Medical decision making narrative: Patient's chest pain started after biopsy. In consideration would be pneumothorax which would be unlikely, recurrent pneumonia, pleurisy, with patient having intermittent transient symptoms this is not consistent with cardiac etiology. Symptoms not consistent with pulmonary embolus either. His symptoms are not suggestive of GI etiology either. His workup included chest x-ray, EKG because he is tachycardic CBC to assess H&H and competence of metabolic panel to assess renal function, electrolytes liver enzymes to determine there is any evidence of endorgan dysfunction. Since he has no rales he has no edema his exam and history is not consistent with CHF. If there is evidence of CHF on the x-ray will obtain troponin and BNP. Reviewed Dr. Clement Lewis's office note authored on December 17. Assessment was lung nodule, CLL, parotid mass, chemotherapy management and encounter for monoclonal antibody treatment for malignancy. 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 There was no evidence of malignancy. His parotid mass was noted on CAT scan dated December 25. He is scheduled for biopsy 911. This revealed a Warthin's tumor. Lab Data Labs: Laboratory Results - last 24 hr 12/23/24 09:50 WBC 9.3 RBC 4.84 Hgb 12.9 L Hct 41.3 MCV 85.3 MCH 26.7 L MCHC 31.2 L RDW Std Deviation 42.5 RDW Coeff of Antonio 13.7 Plt Count 110 L MPV 9.8 Sodium 138 Potassium 4.1 Chloride 101 Carbon Dioxide 27.2 Anion Gap 10 BUN 21 H Creatinine 1.34 H Estim Creat Clear Calc 40.88 L Est GFR (MDRD) Non-Af 55 L BUN/Creatinine Ratio 15.6 Glucose 117 H Calcium 9.7 Total Bilirubin 1.13 AST 15 ALT 12 Alkaline Phosphatase 55 Total Protein 6.0 Albumin 3.8 Globulin 2.3 Albumin/Globulin Ratio 1.7 Radiography Chest X-Ray - ED: 2 View and Read by ED Physician (There are chronic changes noted. He has hyper inflation consistent with COPD. There is no evidence of pneumothorax, infiltrate or effusion. He has multiple clips due to prior aortic valve replacements and clipping of his atrium. Cardiac silhouette is normal. Osseous structures reveal no acute p) Diagnostic Testing: Clinical Impression(s) from Imaging Studies Chest X-Ray 12/23/24 10:25 IMPRESSION: Hyperinflation and changes compatible with COPD. Prominence of the central pulmonary arteries suggestive of pulmonary hypertension. Prior mitral and aortic valve replacement as well as clip of the left atrium. Reading Location: [place] [id number] EKG Initial EKG: Attestation: I personally reviewed and interpreted this EKG as follows: Interpretation: Sinus Rhythm (Rate is 89. The EKG is normal other than artifact. OR interval is on 52 ms. Cures duration 90 ms. QT duration 348 ms. [place] is normal.) Treatment and Re-Evaluation :: Patient was informed of his results. In my opinion he does not have a PE. Will prescribe antibiotic. He states he is on doxycycline presently. That was not listed on his medication list. He was instructed to take until gone. Discharge Plan Triage Chief Complaint: Chest Pain ED Provider: Jose Taylor Dx/Rx/DC Orders Clinical Impression: Acute exacerbation of chronic obstructive pulmonary disease, B-cell chronic lymphocytic leukemia variant, Pain of anterior chest wall with respiration, Acute renal insufficiency Instructions: ED COPD Flare, ED Renal Insufficiency Prescriptions: No Action famotidine 20 mg tablet 20 mg PO QDAY atorvastatin 20 mg tablet 20 mg PO QDAY Adult 50 Plus Probiotic 4 billion cell capsule 4,000 mmu cells PO QDAY Rx Instructions: administer with a meal doxycycline hyclate 100 mg tablet 100 mg PO QDAY allopurinol 300 mg tablet 300 mg PO QDAY 30 Days Qty: 30 2RF ondansetron HCl 8 mg tablet 8 mg PO Q12H PRN (Reason: nausea and vomiting) Qty: 30 0RF albuterol sulfate [ProAir HFA] 90 mcg/actuation HFA aerosol inhaler 2 puff inhalation Q4-6H PRN (Reason: shortness of breath or wheezing) Qty: 8.5 3RF Trelegy Ellipta 200-62.5-25 mcg blister with device 1 inh inhalation Q24H Qty: 3 3RF Primary Care Provider: Shira Lopez Referrals: Clement Lewis MD [Med Staff - Active Staff] - 1 Week Shira Lopez MD [Primary Care Provider] - 1 Week if not improving Print Language: Sinhala Disposition Disposition: Home, Self Care
[2024-12-23 10:07] LABS: Hematocrit 41.3 % (40-54); Hemoglobin 12.9 g/dL (13.0-16.5); Mean Corp Hgb Conc 31.2 g/dL (32-36); Mean Corpuscular Volume 85.3 fL (80-94); Mean Platelet Vol. 9.8 fl (6.2-12.0); Platelet Count 110 K/mm3 (150-450); RBC Distribution Width CV 13.7 % (11.6-14.6); RBC Distribution Width SD 42.5 fl (35.1-43.9); Red Blood Count 4.84 M/mm3 (4.6-6.2); White Blood Count 9.3 K/mm3 (4.4-11.0)
[2024-12-23 10:24] VITALS: PULSE 92; RESP 18; O2SAT 97
--- NOTE | 2024-12-23 10:25 | RAD_ITS ---
PROCEDURE: CHEST PA AND LATERAL 12/23/2024 REASON FOR EXAM: COUGH, INTERMITTENT CHEST PAIN, DYSPNEA TECHNIQUE: CHEST PA AND LATERAL COMPARISON: Prior study dated November 20, 2024. FINDINGS: Hardware: EKG electrodes are seen. Heart: Prior midline sternotomy and mitral and aortic valve replacement. A clip is seen overlying the left atrial appendage. Mediastinum: The mediastinal contour is unremarkable. Lungs: Hyperinflation. Findings suggestive of emphysema. Prominence of the central pulmonary arteries suggestive of possible component of hypertension. Bones: Degenerative changes are identified within the thoracic spine. RAD/Chest PA and Lateral IMPRESSION: Hyperinflation and changes compatible with COPD. Prominence of the central pulmonary arteries suggestive of pulmonary hypertensi on. Prior mitral and aortic valve replacement as well as clip of the left atrium. Reading Location: [place] [id number]
[2024-12-23 10:47] LABS: AST(SGOT) 15 U/L (<=37); Alanine Aminotransfer ALT/SGPT 12 U/L (<=46); Albumin, Serum 3.8 g/dL (3.4-4.8); Alkaline Phosphatase 55 U/L (40-129); Anion Gap 10 (5-15); BUN 21 mg/dL (4-19); BUN/Creat Ratio 15.6 RATIO (10-20); Calcium,Total 9.7 mg/dL (7.6-11.0); Carbon Dioxide 27.2 mmol/L (21.0-32.0); Chloride 101 mmol/L (98-108); Estimated Creatinine Clearance 40.88 ml/min (50-250); Globulin 2.3 g/dL (2.2-4.2); Glucose 117 mg/dL (70-99); Potassium 4.1 mmol/L (3.3-5.1)
[2024-12-23 11:29] VITALS: BP 106/68
== END 2024-12-23 11:31 | disposition home or self-care (01) ==
PROVIDERS: Emergency Provider Emergency Medicine; PCP Internal Medicine Infectious Disease; Visit Provider Emergency Medicine
DX: R07.89 Other chest pain (principal); C91.10 Chronic lymphocytic leukemia of B-cell type not having achieved remission; J44.1 Chronic obstructive pulmonary disease with (acute) exacerbation; N28.9 Disorder of kidney and ureter, unspecified; Z95.2 Presence of prosthetic heart valve; Z79.899 Other long term (current) drug therapy; Z87.891 Personal history of nicotine dependence
CPT/HCPCS: 71046; 80053; 85027; 93005; 99284; A4216

== ENCOUNTER → 2025-03-12 | Outpatient (CLI) | payer MEDICARE, SELFPAY ==
[2025-03-12] VITALS (12 sets, daily range): BP systolic 118–147; BP diastolic 68–86; PULSE 73–89; RESP 16–19; TEMP 36.4; O2SAT 92–100; BMI 19.5
--- NOTE | 2025-03-12 07:33 | CT_ITS ---
PROCEDURE: CT/Chest WITH Contrast
--- NOTE | 2025-03-12 07:33 | CT_ITS ---
PROCEDURE: CT/Biopsy/Inj or Needle Placement
[2025-03-12 07:53] LABS: Hematocrit 41.2 % (40-54); Hemoglobin 13.5 g/dL (13.0-16.5); Immature Granulocytes Count 0.010 X10^3/uL (0.0-0.0); Mean Corp Hgb Conc 32.8 g/dL (32-36); Mean Corpuscular Volume 84.3 fL (80-94); Mean Platelet Vol. 9.5 fl (6.2-12.0); NRBC Flagged by Analyzer 0 % (0-5); Platelet Count 172 K/mm3 (150-450); RBC Distribution Width CV 15.7 % (11.6-14.6); RBC Distribution Width SD 48.6 fl (35.1-43.9); Red Blood Count 4.89 M/mm3 (4.6-6.2); White Blood Count 7.3 K/mm3 (4.4-11.0)
[2025-03-12 08:03] LABS: Prothrombin Time (Protime)PT. 13.3 SECONDS (11.7-14.9)
[2025-03-12 08:04] LABS: Partial Thromboplast Time 23.8 Seconds (24.1-36.2)
[2025-03-12 08:29] LABS: AST(SGOT) 24 U/L (<=37); Alanine Aminotransfer ALT/SGPT 15 U/L (<=46); Albumin, Serum 4.0 g/dL (3.4-4.8); Alkaline Phosphatase 67 U/L (40-129); Anion Gap 8 (5-15); BUN 18 mg/dL (4-19); BUN/Creat Ratio 15.0 RATIO (10-20); Calcium,Total 10.0 mg/dL (7.6-11.0); Carbon Dioxide 26.0 mmol/L (21.0-32.0); Chloride 108 mmol/L (98-108); Estimated Creatinine Clearance 43.39 ml/min (50-250); Globulin 2.3 g/dL (2.2-4.2); Glucose 99 mg/dL (70-99); Potassium 5.2 mmol/L (3.3-5.1); Uric Acid 5.3 mg/dL (3.5-7.2)
[2025-03-12 08:41] LABS: LDH 276 U/L (87-241)
[2025-03-12] MEDS: 0.9% Normal Saline (250mL Bag) 250 ML 15 ML IV (09:01)
[2025-03-12] MEDS: Midazolam 2 MG/2 ML Syringe IV (09:01)
[2025-03-12] MEDS: fentaNYL 100 MCG/2 ML Ampul IV (09:14)
[2025-03-12] MEDS: Lidocaine 2% (20 ml mdv) 20 ML Vial INFILT (09:15)
[2025-03-12 10:21] LABS: Pathology Sent to OSU SEE PATHOLOGY REPORT
== END | disposition home or self-care (01) ==
PROVIDERS: PCP Internal Medicine Infectious Disease; Referring Provider Internal Medicine Medical Oncology; Visit Provider Internal Medicine Medical Oncology
DX: C91.10 Chronic lymphocytic leukemia of B-cell type not having achieved remission (principal); Z01.818 Encounter for other preprocedural examination; R91.8 Other nonspecific abnormal finding of lung field
CPT/HCPCS: 38222; 36415; 71260; 77012; 80053; 83615; 84550; 85025; 85610; 85730; 99156; Q9967; A4216

== ENCOUNTER 2025-03-31 17:10 | Observation (INO) | payer MEDICARE, SELFPAY ==
[2025-03-31] VITALS (11 sets, daily range): BP systolic 97–114; BP diastolic 49–78; PULSE 81–130; RESP 16–27; TEMP 36.8–38.1; O2SAT 94–97; BMI 23.5; BMI 20.7
--- NOTE | 2025-03-31 17:56 | RAD_ITS ---
PROCEDURE: CHEST PA AND LATERAL 03/31/2025 REASON FOR EXAM: FEVER TECHNIQUE: Procedure Code: RADCXR Modality: DX Procedure: CHEST PA AND LATERAL COMPARISON: CT chest 03/12/2025. FINDINGS: Mild bibasilar streaky subsegmental atelectasis. No appreciable focal consolidation, pneumothorax or pleural effusion. Moderate chronic interstitial emphysematous lung changes. Normal heart size. Multiple prosthetic heart valves and left atrial appendage clip. Degenerative changes of the spine. Sternotomy wires. RAD/Chest PA and Lateral IMPRESSION: No appreciable airspace consolidation or pleural effusion. Emphysema. Reading Location: [id number]
--- NOTE | 2025-03-31 17:58 | EKG12_ITS ---
Test Reason : GENERAL Blood Pressure : */* mmHG Vent. Rate : 112 BPM Atrial Rate : 112 BPM P-R Int : 190 ms QRS Dur : 88 ms QT Int : 304 ms P-R-T Axes : 72 73 85 degrees QTcB Int : 414 ms Sinus tachycardia Otherwise normal ECG Confirmed by THERESA DE LA CRUZ, MARANDA ([id number]), state editor TULIO JAIN ([id number] on 04/01/2025 6:51:22 AM Referred By: Confirmed By: MARANDA CARDENAS MD
--- NOTE | 2025-03-31 18:10 | EX.ED.DYSGE1 ---
HPI History of Present Illness Chief Complaint: Fever Narrative Narrative: Chief complaint and HPI: History taken by patient as well as oncology note on 03/23/2025. 79-year-old male with past medical history of CLL with prostate infiltration abdominal adenopathy, B-cell lymphoproliferative disorder, hypogammaglobulinemia, recently diagnosed lung nodule presents for evaluation of fever. Patient states his CLL is currently in remission. States that he just finished chemotherapy approximately 6 weeks ago. States he receives immunotherapy every 4 weeks. Last given 2 weeks ago. Patient states since Sunday he has been having intermittent fevers. Has been taking Tylenol and Motrin. Denies any URI symptoms, shortness of breath, cough, chest pain abdominal pain, nausea, vomiting, diarrhea, constipation, dysuria. Was sent to the emergency department by Dr. Lewis. Review of systems: See HPI Medications: As listed on the chart Allergies: As listed on the chart PFSH: Per chart Vital signs: As listed on the chart. Reviewed. Physical exam: Gen: A&O x3 Head: Normocephalic, atraumatic Eyes: No sclera icterus, conjunctiva clear, PERRL, EOMI ENT: TMs clear BL, moist mucous membranes, posterior oropharynx unremarkable, uvula midline, tonsils not enlarged, no tonsillar exudates Neck: Trachea midline, Full ROM, No meningismus CV: tachycardic, regular rhythm, no murmurs, no peripheral edema Resp: Lungs CTA BL, no w/r/c, mild tachypnea GI: Abd soft, non-distended, non-tender, no r/r/g : Normal external genitalia without rash Musc: Full ROM, no deformity Skin: Warm, dry, no rash Neuro: Alert, oriented, grossly intact, sensation intact Psych: Cooperative, appropriate mood and affect PFS PFS Medical History Hypogammaglobulinemia Fever of unknown origin Lung nodule Iron deficiency anemia CKD (chronic kidney disease) Anxiety Hypercholesterolemia Fatigue Nonrheumatic mitral (valve) insufficiency Neuropathy SOB (shortness of breath) on exertion Parotid mass CLL (chronic lymphocytic leukemia) 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 200 mcg-umeclid 1 inh inhalation Q24H #3 ea 12/09/24 03/31/25 Rx 62.5 mcg-vilant 25 mcg inhalat.powder (Trelegy Ellipta) atorvastatin 20 mg tablet (Lipitor) 20 mg PO QHS 01/14/25 Unknown History guaifenesin 600 mg tablet, 600 mg PO BID 03/31/25 03/31/25 History extended release 12 hr (Mucus Relief ER) Allergy/AdvReac Type Severity Reaction Status Date / Time Sulfa (Sulfonamide Allergy Swelling Verified 03/31/25 17:11 Antibiotics) Family History Brother Cancer Mother Heart disease Surgical History History of parotid gland removal Hx of transurethral resection of prostate (12/01/20) Status post incision and drainage Status post heart valve replacement Social History Smoking Status: Former smoker alcohol intake: never substance use type: does not use EXAM Physical Exam Const Vital Signs: 03/31/25 17:11 03/31/25 17:29 03/31/25 17:29 Temperature 100.5 F H Temperature Source Oral Pulse Rate 130 H 120 H Respiratory Rate 25 H 26 H Respiratory Effort Normal Respiratory Pattern Normal Blood Pressure 102/49 L 114/65 Blood Pressure Mean 66 81 Pulse Ox 97 94 Oxygen Delivery Method Room Air Room Air 03/31/25 17:38 03/31/25 18:15 03/31/25 19:00 Temperature 100.0 F H 100.1 F H 99.2 F H Temperature Source Oral Oral Oral Pulse Rate 121 H 115 H 105 H Respiratory Rate 27 H 24 H 16 Respiratory Effort Respiratory Pattern Blood Pressure 104/63 106/78 103/63 Blood Pressure Mean 76 87 76 Pulse Ox 95 95 97 Oxygen Delivery Method Room Air Room Air Room Air 03/31/25 20:00 Temperature 98.6 F Temperature Source Oral Pulse Rate 93 Respiratory Rate 16 Respiratory Effort Respiratory Pattern Blood Pressure 110/57 L Blood Pressure Mean 74 Pulse Ox 96 Oxygen Delivery Method Room Air MDM MDM MDM Narrative Medical decision making narrative: History taken by patient as well as oncology note on 03/23/2025. 79-year-old male with past medical history of CLL with prostate infiltration abdominal adenopathy, B-cell lymphoproliferative disorder, hypogammaglobulinemia, recently diagnosed lung nodule presents for evaluation of fever. Patient states his CLL is currently in remission. States that he just finished chemotherapy approximately 6 weeks ago. States he receives immunotherapy every 4 weeks. Last given 2 weeks ago. Patient states since Sunday he has been having intermittent fevers. Has been taking Tylenol and Motrin. Denies associated symptoms other than fever. On presentation patient is tachycardic, tachypneic, febrile. Motrin and NS bolus ordered. Differential diagnosis includes but is not limited to viral illness, pneumonia, UTI, electrolyte abnormality, dehydration, bacteremia. Infectious workup ordered. CBC without leukocytosis. Patient has baseline anemia with a hemoglobin of 12. Platelets unremarkable. Coagulation panel unremarkable. CMP unremarkable. Lactic acid unremarkable. Troponin unremarkable. COVID, flu, RSV negative. UA negative for UTI. At this point in time, no clear etiology for patient's symptoms. Repeat vitals show tachycardia however improved from the 130s, 105. Tachypnea resolved. No longer febrile. Will reach out to oncology. I spoke to oncology team, Billie, and patient was discussed. Plan is to admit the patient and have infectious disease evaluate given he has had periodic unknown fevers in the past without diagnosis. No antibiotics needed at this time. Patient was updated of all results and the plan. Hospitalist accepted admission. EKG: Interpreted by me/EM physician: EKG shows sinus tachycardia with a heart rate of 112, no acute ischemic changes Diagnostic: Interpreted by me/EM physician: Chest x-ray without pneumonia, effusion, cardiomegaly, pneumothorax. Chronic lung changes. Radiology in agreement. Impression: 1. Fever of unknown origin 2. History immunocompromise secondary to cancer on immunotherapy and recent finishing of chemotherapy Lab Data Labs: Laboratory Results - last 24 hr 03/31/25 03/31/25 17:41 19:03 WBC 6.7 RBC 4.73 Hgb 12.0 L Hct 38.1 L MCV 80.5 MCH 25.4 L MCHC 31.5 L RDW Std Deviation 41.4 RDW Coeff of Antonio 14.0 Plt Count 173 MPV 9.8 Immature Gran % (Auto) 1.200 H Neut % (Auto) 70.6 H Lymph % (Auto) 16.9 L [place] % (Auto) 9.1 Eos % (Auto) 1.6 Baso % (Auto) 0.6 Absolute Neuts (auto) 4.7 Absolute Lymphs (auto) 1.13 Nucleated RBC % 0 PT 13.2 INR 1.0 APTT 27.8 Sodium 137 Potassium 3.9 Chloride 104 Carbon Dioxide 22.2 Anion Gap 11 BUN 16 Creatinine 1.06 Estim Creat Clear Calc 56.46 Est GFR (MDRD) Non-Af 72 BUN/Creatinine Ratio 15.2 Glucose 126 H Lactic Acid < 1.0 Calcium 9.2 Total Bilirubin 0.83 AST 20 ALT 11 Alkaline Phosphatase 56 Troponin T High Sens 18 Total Protein 6.5 Albumin 3.9 Globulin 2.6 Albumin/Globulin Ratio 1.5 Urine Color Yellow Urine Clarity Clear Urine pH 6.0 Ur Specific [place] 1.015 Urine Protein 30 H Urine Glucose (UA) Normal Urine Ketones 5 H Urine Occult Blood Negative Urine Nitrite Negative Urine Bilirubin Negative Urine Urobilinogen Normal Ur Leukocyte Esterase Negative Urine RBC 0 SEEN Urine WBC 0-5 SEEN Ur Squamous Epith Cells 0-5 SEEN Urine Bacteria 0 SEEN Urine Mucus 0 SEEN Radiography Diagnostic Testing: Clinical Impression(s) from Imaging Studies Chest X-Ray 03/31/25 17:56 IMPRESSION: No appreciable airspace consolidation or pleural effusion. Emphysema. Reading Location: [facility] Discharge Plan Triage Chief Complaint: Fever ED Provider: Angel Luis Mckinney Dx/Rx/DC Orders Prescriptions: No Action famotidine 20 mg tablet 20 mg PO QDAY atorvastatin [Lipitor] 20 mg tablet 20 mg PO QHS guaifenesin [Mucus Relief ER] 600 mg tablet extended release 12hr 600 mg PO BID albuterol sulfate [ProAir HFA] 90 mcg/actuation HFA aerosol inhaler 2 puff inhalation Q4-6H PRN (Reason: shortness of breath or wheezing) Qty: 8.5 3RF Trelegy Ellipta 200-62.5-25 mcg blister with device 1 inh inhalation Q24H Qty: 3 3RF Primary Care Provider: Shira Lopez Referrals: Shira Lopez MD [Primary Care Provider, Internal Medicine] Print Language: Slovenian
[2025-03-31 18:14] LABS: Hematocrit 38.1 % (40-54); Hemoglobin 12.0 g/dL (13.0-16.5); Immature Granulocytes Count 0.080 X10^3/uL (0.0-0.0); Mean Corp Hgb Conc 31.5 g/dL (32-36); Mean Corpuscular Volume 80.5 fL (80-94); Mean Platelet Vol. 9.8 fl (6.2-12.0); NRBC Flagged by Analyzer 0 % (0-5); Platelet Count 173 K/mm3 (150-450); RBC Distribution Width CV 14.0 % (11.6-14.6); RBC Distribution Width SD 41.4 fl (35.1-43.9); Red Blood Count 4.73 M/mm3 (4.6-6.2); White Blood Count 6.7 K/mm3 (4.4-11.0)
[2025-03-31 18:36] LABS: Prothrombin Time (Protime)PT. 13.2 SECONDS (11.7-14.9)
[2025-03-31 18:37] LABS: Partial Thromboplast Time 27.8 Seconds (24.1-36.2)
[2025-03-31 18:39] LABS: AST(SGOT) 20 U/L (<=37); Alanine Aminotransfer ALT/SGPT 11 U/L (<=46); Albumin, Serum 3.9 g/dL (3.4-4.8); Alkaline Phosphatase 56 U/L (40-129); Anion Gap 11 (5-15); BUN 16 mg/dL (4-19); BUN/Creat Ratio 15.2 RATIO (10-20); Calcium,Total 9.2 mg/dL (7.6-11.0); Carbon Dioxide 22.2 mmol/L (21.0-32.0); Chloride 104 mmol/L (98-108); Estimated Creatinine Clearance 56.46 ml/min (50-250); Globulin 2.6 g/dL (2.2-4.2); Glucose 126 mg/dL (70-99); Potassium 3.9 mmol/L (3.3-5.1); Troponin T High Sensitivity 18 ng/L (<=22)
[2025-03-31] MEDS: 0.9% Normal Saline (1000mL) 1,000 ML 999 ML IV (18:39)
[2025-03-31 19:10] LABS: Mucous, Urine 0 SEEN /hpf (<or=2+); Red Blood Cells-Urine 0 SEEN /hpf (0-5)
[2025-03-31 19:21] LABS: Color, Urine Yellow (Yellow); Glucose, Dipstick Normal (Normal); Ketone-Dipstick 5 mg/dl (Negative); Leukocyte Esterase-Dipstick Negative /ul (Negative); Nitrite-Dipstick Negative (Negative); Occult Blood-Urine Negative /ul (Negative); Protein-Dipstick 30 mg/dl (Negative); Specific Gravity, Urine 1.015 (1.002-1.030); Urine Bilirubin Dipstick Negative (Negative)
[2025-03-31 19:55] LABS: Squamous Epithelial Cells - UA 0-5 SEEN /hpf (0-5)
--- NOTE | 2025-03-31 20:13 | PCM.HP.STD ---
HPI - General General Date of Admission: 03/31/25 Date of Service: 03/31/25 Chief Complaint: Intermittent fevers HPI Narrative RICHARDSON CARVALHO, is a 79 M who presented to the emergency department at [facility] on 03/31/2025 due to intermittent fevers of unknown origin. Patient states that he has had fevers on and off since July of this past year. He was diagnosed with diffuse B-cell lymphoma in 2020 and has undergone treatment. He is told currently he is in remission. He was found to have pulmonary nodules and is undergoing a biopsy in early April. He follows as an outpatient with oncology here in [place] with [facility] and was instructed to come to the emergency department due to ongoing intermittent fevers. He stated that over the last 2 weeks he been fine but in the last couple days he has developed ongoing intermittent fevers with a Tmax of 103 degrees. He states he feels fine otherwise. He denies any chills, myalgias, new cough or sputum production, nausea, vomiting, chest pain, shortness of breath, diarrhea and in general he feels well when he is not febrile. He states he has had an extensive workup with regards to these fevers with no identified etiology as of yet. 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 This was in 2018. Vital signs on presentation showed temperature of 100.5, heart rate was 130, respiratory rate was 25, blood pressure was 102/49 and pulse ox was 97% on room air. CBC is overall unremarkable other than a mild chronic anemia with a hemoglobin of 12. His white count was normal at 6.7. He does have a left shift that is mild at 70.6%. Coags are unremarkable. Chemistry panel is unremarkable. Lactic acid was less than 1. Liver functions are normal. UA is not consistent with infection. Chest x-ray is unremarkable for any acute findings but does show emphysematous changes and multiple prosthetic heart valves with the left atrial appendage clip. Given his ongoing fevers, the case was discussed with his oncologist and they asked for admission with workup and ID consult. Patient will be admitted as observation status as he does not meet current criteria for full admission. This was discussed with patient at the time of admission. 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 200 mcg-umeclid 1 inh inhalation Q24H #3 ea 12/09/24 03/31/25 Rx 62.5 mcg-vilant 25 mcg inhalat.powder (Trelegy Ellipta) atorvastatin 20 mg tablet (Lipitor) 20 mg PO .qd 01/14/25 03/31/25 History guaifenesin 600 mg tablet, 600 mg PO BID 03/31/25 03/31/25 History extended release 12 hr (Mucus Relief ER) Allergy/AdvReac Type Severity Reaction Status Date / Time Sulfa (Sulfonamide Allergy Swelling Verified 03/31/25 17:11 Antibiotics) Family History Brother Cancer Mother Heart disease Family History no significant family his Surgical History History of parotid gland removal Hx of transurethral resection of prostate (12/01/20) Status post incision and drainage Status post heart valve replacement Surgical History unable to obtain Social History (Updated 04/01/25 @ 00:[address] Lanette Hoff DO) household members: none housing: house current occupational status: retired Smoking Status: Former smoker alcohol intake: never substance use type: does not use ROS Constitutional Constitutional: Reports other Details: Intermittent fevers ; Denies anorexia, change in weight, chills, fatigue, fever(s), malaise, night sweats or weakness Eyes Eyes: Denies blurry vision, change in eye color, change in vision, discharge from eye(s), double vision, erythema, eye pain, loss of vision or other ENT HEENT: Denies abnormal hearing, dysphagia, ear pain, epistaxis, headache(s), hearing loss, nasal congestion, nasal discharge, post nasal drip, sinus pressure, sore throat or other Cardiovascular Cardiovascular: Denies chest pain, claudication, dyspnea on exertion, edema, lightheadedness, orthopnea, palpitations, paroxysmal nocturnal dyspnea, rapid heart rate, syncope or other Respiratory/Chest Respiratory/Chest: Denies cough, dyspnea, excessive phlegm production, hemoptysis, productive cough, shortness of breath at rest, shortness of breath with exertion, wheezing or other Gastrointestinal Gastrointestinal: Denies abdominal pain, coffee ground emesis, constipation, diarrhea, dyspepsia, hematemesis, hematochezia, loose stools, melena, nausea, vomiting or other Genitourinary Genitourinary: Denies burning urination, difficulty urinating, dysuria, hematuria, nocturia, urinary frequency, urinary hesitancy, urinary incontinence, urinary urgency or other Musculoskeletal Musculoskeletal: Denies arthralgias, back pain, joint pain, joint stiffness, joint swelling, myalgias, neck pain or other Neurologic Neurologic: Denies abnormal gait, abnormal speech, confusion, disequilibrium, dizziness, focal weakness, headache(s), numbness, paresthesias, seizure-like activity, seizures, syncope, tingling, tremor(s) or other Psychiatric Psychiatric: Denies anxiety, depression, homicidal ideation, suicidal ideation or other Endocrine Endocrinology: Denies change in body appearance, cold intolerance, excessive sweating, heat intolerance, polydipsia, polyuria or other Hematologic/Lymphatic Hematologic/Lymphatic: Denies anemia, easy bleeding, easy bruising, lymphadenopathy or other Allergic/Immunologic Allergic/Immunologic: Denies rhinitis, hives, eczemia, asthma or other Vital Signs Vital Signs Vital Signs: 03/31/25 17:11 03/31/25 17:29 03/31/25 17:29 Temperature 100.5 F H Temperature Source Oral Pulse Rate 130 H 120 H Respiratory Rate 25 H 26 H Respiratory Effort Normal Respiratory Pattern Normal Blood Pressure 102/49 L 114/65 Blood Pressure Mean 66 81 Pulse Ox 97 94 Oxygen Delivery Method Room Air Room Air 03/31/25 17:38 03/31/25 18:15 03/31/25 19:00 Temperature 100.0 F H 100.1 F H 99.2 F H Temperature Source Oral Oral Oral Pulse Rate 121 H 115 H 105 H Respiratory Rate 27 H 24 H 16 Respiratory Effort Respiratory Pattern Blood Pressure 104/63 106/78 103/63 Blood Pressure Mean 76 87 76 Pulse Ox 95 95 97 Oxygen Delivery Method Room Air Room Air Room Air 03/31/25 20:00 Temperature 98.6 F Temperature Source Oral Pulse Rate 93 Respiratory Rate 16 Respiratory Effort Respiratory Pattern Blood Pressure 110/57 L Blood Pressure Mean 74 Pulse Ox 96 Oxygen Delivery Method Room Air Weight Weight: 70.2 kg Body Mass Index (BMI) 23.5 Physical Exam Const alert, oriented x3, no apparent distress, average body habitus and well nourished Constitutional Narrative: Older, white male, sitting up in bed, appears well at this time, nontoxic, very pleasant, friends at bedside General Appearance: cooperative HEENT normocephalic, head/scalp atraumatic, hearing grossly normal bilaterally and moist oral mucous membranes HEENT Narrative: Mallampati is 2, no thrush, dentures in place Eyes EOMs intact bilaterally and conjunctivae normal Eyes Narrative: No scleral icterus Neck no lymphadenopathy and supple Neck Narrative: Trachea midline, no thyroid enlargement Resp normal respiratory effort, no retractions, no use of accessory muscles and clear to auscultation bilaterally Resp Narrative: Diffusely diminished with no adventitious sounds noted Auscultation: Negative for rales, rhonchi or wheezes Cardio regular rate, regular rhythm, S1 normal heart sound, S2 normal heart sound, no murmurs, no rub and no gallops; Negative for no clicks Cardio Narrative: Click noted over aortic valve area-mild GI normal to inspection, nondistended, normoactive bowel sounds, soft to palpation and non-tender Extremity no clubbing, cyanosis or edema Extremity Narrative: 2+ pedal and radial pulses Skin Skin Narrative: Skin changes consistent with previous extensive sun exposure Neuro moves all extremities and no focal motor deficits Speech: speech normal Psych affect normal Psych Narrative: Extremely pleasant, appears well, interacts appropriately Results Lab / Micro Data 03/31/25 17:41 03/31/25 17:41 Labs: Laboratory Results - last 24 hr 03/31/25 17:41: WBC 6.7, RBC 4.73, Hgb 12.0 L, Hct 38.1 L, MCV 80.5, MCH 25.4 L, MCHC 31.5 L, RDW Std Deviation 41.4, RDW Coeff of [place] 14.0, Plt Count 173, MPV 9.8, Immature Gran % (Auto) 1.200 H, Neut % (Auto) 70.6 H, Lymph % (Auto) 16.9 L, [place] % (Auto) 9.1, Eos % (Auto) 1.6, Baso % (Auto) 0.6, Absolute Neuts (auto) 4.7, Absolute Lymphs (auto) 1.13, Nucleated RBC % 0, PT 13.2, INR 1.0, APTT 27.8, Sodium 137, Potassium 3.9, Chloride 104, Carbon Dioxide 22.2, Anion Gap 11, BUN 16, Creatinine 1.06, Estim Creat Clear Calc 56.46, Est GFR (MDRD) Non-Af 72, BUN/Creatinine Ratio 15.2, Glucose 126 H, Lactic Acid < 1.0, Calcium 9.2, Total Bilirubin 0.83, AST 20, ALT 11, Alkaline Phosphatase 56, Troponin T High Sens 18, Total Protein 6.5, Albumin 3.9, Globulin 2.6, Albumin/Globulin Ratio 1.5 03/31/25 19:03: Urine Color Yellow, Urine Clarity Clear, Urine pH 6.0, Ur Specific [place] 1.015, Urine Protein 30 H, Urine Glucose (UA) Normal, Urine Ketones 5 H, Urine Occult Blood Negative, Urine Nitrite Negative, Urine Bilirubin Negative, Urine Urobilinogen Normal, Ur Leukocyte Esterase Negative, Urine RBC 0 SEEN, Urine WBC 0-5 SEEN, Ur Squamous Epith Cells 0-5 SEEN, Urine Bacteria 0 SEEN, Urine Mucus 0 SEEN Micro: Microbiology 03/31/25 17:41 Mucosa - Nose SARS-CoV-2, Influenza & RSV (PCR) - Final Imaging Radiology Impression Chest X-Ray 03/31/25 17:56 IMPRESSION: No appreciable airspace consolidation or pleural effusion. Emphysema. Reading Location: [facility] Assessment & Plan Assessment/Plan (1) Intermittent FUO: PLAN: Plan Intermittent/recurring fevers of unknown origin - No infectious source identified at the time of admission and patient does not meet sepsis criteria - Patient previously with diffuse B-cell lymphoma but is considered in remission - Patient with multiple pulmonary nodules on CT of the chest with biopsy upcoming - Check a sed rate CRP - Check procalcitonin - I have sent off galactomannan antigen with abnormal CT of the chest - Will panculture as able--> patient not able to produce sputum - Broad-spectrum antibiotics with vancomycin and Zosyn for now - Will schedule Tylenol for comfort at this point - Consult infectious disease - Consult oncology History of hypogammaglobulinemia - IgG level was just assessed and found to be slightly low at 486--> last received IgG on 03/23/2025 - Will check IgG level given recurrent FUO - Unclear if patient would benefit from IgG supplementation - Will leave to oncology and ID Chronic anemia - Hemoglobin is normal - Monitor clinically - no signs of acute bleeding COPD - Continue home inhalers - Continue home guaifenesin - Nebulizer as needed - No signs of acute decompensation Hyperlipidemia - Continue home atorvastatin GERD - Continue home famotidine 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 - Oncology is monitoring BPH with obstruction - History of TURP on 12/01/2024 - No signs of obstruction at this time - Will monitor clinically History of CLL - Diagnosed in 2020 - Was having FUO's at that time - Underwent systemic therapy with Bendamustine/Rituxan December 17, 2024 with his last cycle being on 02/09/2025 - Has hematologic remission -Bone marrow aspiration biopsy on 12/10/2024 showed normocellular marrow with B-cell lymphoproliferative disorder - Chemo was on hold - Had PET/CT done on 03/03/2025 that shows 3 bilateral pulmonary nodules that are concerning for neoplastic processes as well as numerous areas with increased activity in the skeleton predominantly in the pelvic and spine that are concerning for malignancy - Biopsy pending CKD stage IIIa - Estimated creatinine clearance of 56.46 - Creatinine is stable compared to previous - Avoid nephrotoxins as able - Monitor clinically History of tobacco abuse - Remote - Encouraged ongoing cessation DVT prophylaxis - Subcu enoxaparin daily CODE STATUS - DNR CCA with no intubation as verified with the patient at the time of admission Charges/Coding Visit Charges Inpatient E&M: 56055 Init Hosp L2
[2025-03-31 21:01] LABS: CRP 36.00 mg/L (0.0-3.0); Procalcitonin 1.07 ng/mL (<=0.10)
--- OUTSIDE RECORDS SUMMARY | 2025-03-31 21:20 | XMS RPT_ITS | CCD ---
Author Organization [facility] Care Team Providers Care Stationary Plant Operators Name Role Phone Unavailable Primary Care Provider UnavailDr. Shira Simon Primary Care Provider Dr. Shira Pavon Referring Provider Dr. Clement Lewis Attending Provider Dr. Shira Pavon Primary Care Provider Savanah, Dr. Silva Referring Provider Joshua, Dr. Vaughan Attending Provider LISA GARSIA MD, ANGELIC Admitting Unavailable MARIAH DE LA CRUZ, SINGH Morelos Consulting Unavailable SAVANAH DE LA CRUZ, DR SILVA Primary Care Unavailable JORJE HOWARD Attending Unavailable JERALD GARCIA MD Consulting Unavailable SAVANAH DE LA CRUZ, DR SILVA Consulting Unavailable JAYME DE LA CRUZ, PRIMITIVO Dickerson Consulting Unavailable Savanah DE LA CRUZ, Dr. Silva Primary Care Provider Dr. Shira Pavon MD Referring Provider Dr. Clement Lewis MD Attending Provider Dr. Jose Shaw MD Attending Provider [phone] Clement Lewis MD Referring Provider Dr. Clement Lewis MD Referring Provider Dr. Magdi Strauss DO Attending Provider Quang MONROE-CBillie Attending Provider Dr. Shira Pavon MD Primary Care Provider Savanah DE LA CRUZ, Dr. Silva Referring Provider Joshua DE LA CRUZ, Dr. Vaughan Attending Provider Quang DOLL SURGEON-C, Billie Referring Provider Frank MILLER, Dr. Fairbanks Referring Provider Savanah DE LA CRUZ, Dr. Silva Primary Care Provider Savanah DE LA CRUZ, Dr. Silva Referring Provider Joshua DE LA CRUZ, Dr. Vaughan Attending Provider Frank MILLER, Dr. Fairbanks Other Provider Ayan DOLL SURGEON-C, Idania Berry Attending Provider Joshua DE LA CRUZ, Dr. Vaughan Referring Provider Joshua DE LA CRUZ, Dr. Vaughan Referring Provider Brandon DE LA CRUZ, Dr. Garcia Emergency Provider Lynn DE LA CRUZ, Dr. Holder Attending Provider Brandon DE LA CRUZ, Dr. Garcia Attending Provider Ashleigh DE LA CRUZ, Dr. Mccrary Attending Provider Joshua DE LA CRUZ, Dr. Vaughan Referring Provider Savanah DE LA CRUZ, Dr. Silva Primary Care Provider Savanah DE LA CRUZ, Dr. Silva Referring Provider Joshua DE LA CRUZ, Dr. Vaughan Referring Provider Joshua DE LA CRUZ, Dr. Vaughan Referring Provider Joshua DE LA CRUZ, Dr. Vaughan Referring Provider Savanah DE LA CRUZ, Dr. Silva Primary Care Physician Savanah DE LA CRUZ, Dr. Silva Referring Provider Joshua DE LA CRUZ, Dr. Vaughan Attending Physician Dr. Magdi Strauss DO Attending Physician Quang DOLL SURGEON-C, Billie Attending Physician Dr. Magdi Strauss DO Nurse Practitioner [phone] Ayan DOLL SURGEON-C, Idania Berry Attending Physician [phone] Brandon DE LA CRUZ, Dr. Garcia Attending Physician Dr. Jose Taylor MD Emergency Department Physician Dr. Gallo Bailey MD Attending Physician Dr. Demetra Sotelo MD Attending Physician Dr. Clement Lewis MD Referring Provider Dr. Clement Lewis MD Referring Provider Quang DOLL SURGEON-C, Billie Nurse Practitioner SHIRA PAVON MD Consulting Unavailable SHIRA PAVON MD Attending Unavailable SHIRA PAVON MD Admitting Unavailable SHIRA PAVON MD Primary Care Unavailable PROVIDER, UNKNOWN Consulting Unavailable PROVIDER, UNKNOWN Consulting Unavailable PROVIDER, UNKNOWN Consulting Unavailable SHIRA PAVON MD Consulting Unavailable SHIRA PAVON MD Referring Unavailable NAVNEET SILVA MD Primary Care Unavailable NAVNEET SILVA MD Attending Unavailable NAVNEET SILVA MD Admitting Unavailable PROVIDER, UNKNOWN Consulting Unavailable PROVIDER, UNKNOWN Consulting Unavailable PROVIDER, UNKNOWN Consulting Unavailable SHIRA PAVON MD Consulting Unavailable SHIRA PAVON MD Referring Unavailable TURPIN, SAUL C Primary Care Unavailable TURPIN, SAUL C Attending Unavailable TURIPN, SAUL C Admitting Unavailable PROVIDER, UNKNOWN Consulting Unavailable PROVIDER, UNKNOWN Consulting Unavailable PROVIDER, UNKNOWN Consulting Unavailable SHIRA PAVON MD Consulting Unavailable SHIRA PAVON MD Attending Unavailable SHIRA PAVON MD Admitting Unavailable SHIRA PAVON MD Primary Care Unavailable PROVIDER, UNKNOWN Consulting Unavailable PROVIDER, UNKNOWN Consulting Unavailable PROVIDER, UNKNOWN Consulting Unavailable SHIRA PAVON MD Consulting Unavailable JO, VICKIE PA%C Primary Care Unavailable JO, VICKIE PA%C Attending Unavailable JO, VICKIE PA%C Admitting Unavailable PROVIDER, UNKNOWN Consulting Unavailable PROVIDER, UNKNOWN Consulting Unavailable PROVIDER, UNKNOWN Consulting Unavailable SHIRA PAVON MD Consulting Unavailable SHIRA PAVON MD Attending Unavailable SHIRA PAVON MD Admitting Unavailable SHIRA PAVON MD Primary Care Unavailable PROVIDER, UNKNOWN Consulting Unavailable PROVIDER, UNKNOWN Consulting Unavailable PROVIDER, UNKNOWN Consulting Unavailable Dr. Shira Pavon MD Primary Care Physician Dr. Shira Pavon MD Referring Provider Dr. Clement Lewis MD Attending Physician Dr. Clement Lewis MD Referring Provider Quang DOLL SURGEON-C, Billie Nurse Practitioner Omran, Yasser Referring Unavailable Omran, Yasser Primary Care Unavailable Magdi Strauss Attending Unavailable Omran, Yasser Referring Unavailable PraClement enciso Attending Unavailable Omran, Yasser Primary Care Unavailable Omran, Yasser Primary Care Unavailable Omran, Yasser Referring Unavailable Demetra Sotelo Attending Unavailable Gallo Bailey Attending Unavailable Omran, Yasser Referring Unavailable Omran, Yasser Primary Care Unavailable Quang DOLL SURGEON, Billie Attending Unavailable Omran, Yasser Referring Unavailable Omran, Yasser Primary Care Unavailable Omran, Yasser Referring Unavailable Omran, Yasser Primary Care Unavailable Clement Lewis Attending Unavailable Idania Botello Attending Unavailable Omran, Yasser Referring Unavailable Omran, Yasser Primary Care Unavailable Quang DOLL SURGEON, Billie Attending Unavailable Omran, Yasser Referring Unavailable Omran, Yasser Primary Care Unavailable Omran, Yasser Referring Unavailable Clement Lewis Attending Unavailable Omran, Yasser Primary Care Unavailable Omran, Yasser Referring Unavailable Clement Lewis Attending Unavailable Omran, Yasser Primary Care Unavailable Omran, Yasser Primary Care Unavailable Magdi Strauss Attending Unavailable Brown, Magdi Referring Unavailable Omran, Yasser Primary Care Unavailable Jose Taylor Attending Unavailable Omran, Yasser Referring Unavailable Clement Lewis Attending Unavailable Omran, Yasser Primary Care Unavailable Omran, Yasser Referring Unavailable Clement Lewis Attending Unavailable Omran, Yasser Primary Care Unavailable Omran, Yasser Referring Unavailable Clement Lewis Attending Unavailable Omran, Yasser Primary Care Unavailable Omran, Yasser Referring Unavailable Omran, Yasser Primary Care Unavailable Clement Lewis Attending Unavailable Omran, Yasser Referring Unavailable Omran, Yasser Primary Care Unavailable Clement Lewis Attending Unavailable Magdi Strauss Attending Unavailable Omran, Yasser Primary Care Unavailable BrownLaurak Referring Unavailable Quang DOLL SURGEON, Billie Attending Unavailable Quang DOLL SURGEON, Billie Referring Unavailable Omran, Yasser Primary Care Unavailable Gallo Bailey Attending Unavailable Omran, Yasser Primary Care Unavailable Quang DOLL SURGEON, Billie Consulting Unavailable Clement Lewis Attending Unavailable Clement Lewis Referring Unavailable Omran, Yasser Primary Care Unavailable Idania Botello Attending Unavailable Omran, Yasser Referring Unavailable Omran, Yasser Primary Care Unavailable Magdi Strauss Consulting Unavailable Magdi Strauss Attending Unavailable Omran, Yasser Primary Care Unavailable Brown, Magdi Referring Unavailable Omran, Yasser Referring Unavailable Clement Lewis Attending Unavailable Omran, Yasser Primary Care Unavailable Quang DOLL SURGEON, Billie Attending Unavailable Omran, Yasser Referring Unavailable Omran, Yasser Primary Care Unavailable Clement Lewis Attending Unavailable Prazaria, Clement Referring Unavailable Omran, Yasser Primary Care Unavailable Omran, Yasser Referring Unavailable Jose Shaw Attending Unavailable Omran, Yasser Primary Care Unavailable Quang DOLL SURGEON, Billie Attending Unavailable Omran, Yasser Referring Unavailable Omran, Yasser Primary Care Unavailable Savanah DE LA CRUZ [facility] Primary Care Provider Allergies Allergy Classification Reported Allergen(s) Allergy Type Date of Onset Reaction(s) Facility (1 source) Sulfonamides (Antibiotic) Propensity to adverse reactions to drug 0 [facility] (20 sources) Sulfonamides (Antibiotic) Allergy to substance 2 Swelling [facility] (1 source) Sulfonamides (Antibiotic) Drug allergy (disorder) [facility] (1 source) Sulfonamides (Antibiotic) Drug allergy (disorder) 5 [facility] Medications Current Medications Medication Drug Class(es) Dates Sig (Normalized) Sig (Original) allopurinol 300 mg oral tablet (12 sources) Xanthine Oxidase Inhibitor Start: 12-04-2024 End: 03-09-2025 take 1 tablet by mouth once daily Allopurinol 300 mg tablet Discontinued 300 mg PO daily 30 30 2 December 04, 2024 12:00am March 09, 2025 9:11am atorvastatin 20 mg oral tablet (20 sources) HMG-CoA Reductase Inhibitor Start: 01-14-2025 take 1 tablet by mouth at bedtime Start: 03-19-2024 End: 12-31-2024 take 1 tablet by mouth once daily Atorvastatin 20 mg tablet Discontinued 20 mg PO daily March 19, 2024 1:00am December 31, 2024 9:34am Start: 11-24-2020 End: 07-18-2023 take 1 tablet by mouth at bedtime Atorvastatin 20 mg Tablet Discontinued 20 mg PO AT BEDTIME November 24, 2020 12:00am July 18, 2023 2:56pm cholesterol bisacodyl 10 mg rectal suppository (1 source) Stimulant Laxative Start: 05-22-2019 take 10 mg rectal route once daily as needed for constipation 10 mg, Rectal, DAILY PRN, Constipation, Starting [facility] 05/22/19 at 0855 First line therapy for constipation doxycycline hyclate 100 mg oral tablet (18 sources) Tetracycline-cla ss Drug Start: 10-02-2024 End: 03-09-2025 take 1 tablet by mouth once daily Doxycycline Hyclate 100 mg tablet Discontinued 100 mg PO daily October 02, 2024 12:00am March 09, 2025 9:11am 0.4 ml enoxaparin sodium 100 mg/ml prefilled syringe (1 source) Low Molecular Weight Heparin Start: 05-22-2019 inject 40 mg by subcutaneous injection once daily 40 mg, Subcutaneous, DAILY, First dose on [facility] 05/22/19 at 0915 famotidine 20 mg oral tablet (20 sources) Histamine-2 Receptor Antagonist Start: 03-19-2024 take 1 tablet by mouth once daily Start: 10-01-2023 End: 10-30-2023 take 1 tablet by mouth once daily Famotidine 20 mg tablet Discontinued 20 mg PO DAILY October 01, 2023 12:00am October 30, 2023 1:31pm Start: 11-24-2020 End: 07-18-2023 take 1 tablet by mouth once daily Famotidine 20 mg Tablet Discontinued 20 mg PO DAILY November 24, 2020 12:00am July 18, 2023 2:56pm gerd Cznnqctwyhk-Katwsifcz-Ycnubv er (20 sources) Start: 12-09-2024 Start: 12-09-2024 Fluticasone-Um eclidin-Vilanter (Trelegy Ellipta) 200-62.5-25 mcg blister with device Active 1 NMA INHALATION Q24H 3 3 December 09, 2024 1:57pm Chronic obstructive pulmonary disease Chronic obstructive pulmonary disease, unspecified Start: 12-05-2024 End: 12-09-2024 Ixioviifsel-Hzresiync-Fejdiy er (Trelegy Ellipta) 200-62.5-25 mcg blister with device Discontinued 1 NMA INHALATION Q24H 3 3 December 05, 2024 2:30pm December 09, 2024 1:57pm Chronic obstructive pulmonary disease Chronic obstructive pulmonary disease, unspecified Start: 12-03-2024 End: 12-05-2024 Hhihxvzftxa-Gxbjyvdvf-Golvrc er (Trelegy Ellipta) 200-62.5-25 mcg blister with device Discontinued 1 NMA INHALATION Q24H 60 5 December 03, 2024 12:00am December 05, 2024 2:31pm Chronic obstructive pulmonary disease Chronic obstructive pulmonary disease, unspecified Start: 12-03-2024 Fluticasone-Um eclidin-Vilanter (Trelegy Ellipta) 200-62.5-25 mcg blister with device Active 1 NMA INHALATION Q24H 60 December 03, 2024 12:00am Chronic obstructive pulmonary disease Chronic obstructive pulmonary disease, unspecified 60 actuat formoterol fumarate 0.005 mg/actuat / mometasone furoate 0.1 mg/actuat metered dose inhaler (1 source) Corticosteroid, beta2-Adrenergic Agonist Start: 05-22-2019 take 2 puff(s) by inhalation twice daily 2 puff, Inhalation, 2 TIMES DAILY, First dose on Sun05/22/19 at 1015 Common canister. Substituted for Budesonide-Formoterol (SYMBICORT). Lactobacillus Combination No.9 (Adult 50 Plus Probiotic) 4 billion cell capsule (18 sources) Start: 07-24-2024 End: 03-09-2025 take 4 capsules by mouth once daily Lactobacillus Combination No.9 (Adult 50 Plus Probiotic) 4 billion cell capsule Discontinued 4000 NMA PO daily July 24, 2024 12:00am March 09, 2025 9:11am administer with a meal Start: 07-24-2024 take 4 capsules by m outh once daily Start: 07-24-2024 take 4 capsules by m outh once daily Lactobacillus Combination No.9 (Adult 50 Plus Probiotic) 4 billion cell capsule Active 4000 NMA PO daily July 24, 2024 12:00am administer with a meal ondansetron 8 mg oral tablet (10 sources) Serotonin-3 Receptor Antagonist Start: 12-17-2024 End: 03-09-2025 take 1 tablet by mouth every twelve hours as needed for nausea and vomiting Ondansetron Hcl 8 mg tablet Discontinued 8 mg PO Q12H as needed for nausea and vomiting 30 0 December 17, 2024 12:00am March 09, 2025 9:12am Start: 05-22-2019 4 mg, Intraven ous, EVERY 6 HOURS PRN, Nausea, Starting Sun05/22/19 at 0855 pantoprazole 40 mg delayed release oral tablet (1 source) Proton Pump Inhibitor Start: 05-24-2019 take 1 tablet by mouth twice daily before mealtime pantoprazole (PROTONIX) 40 MG tablet Take 1 tablet by mouth 2 times daily (before meals) 60 tablet 1 05/24/2019 Active Start: 05-24-2019 take 1 tablet by isabell th twice daily before mealtime pantoprazole (PROTONIX) 40 MG tablet Take 1 tablet by mouth 2 times daily (before meals) 60 tablet 1 05/24/2019 Active pantoprazole (PROTONIX) 80 mg in sodium chloride 0.9 % 100 mL infusion (1 source) Start: 05-22-2019 pantoprazole (PROTONIX) 80 mg in sodium chloride 0.9 % 100 mL infusion piperacillin 3000 mg / tazobactam 375 mg injection (2 sources) Penicillin-class Antibacterial, beta Lactamase Inhibitor Start: 05-22-2019 piperacillin-tazobac ta m (ZOSYN) 3.375 g in dextrose 50 mL IVPB extended infusion (premix) Start: 05-22-2019 End: 05-22-2019 piperacillin-tazobactam (ZOS YN) 4.5 g in dextrose 100 mL IVPB (premix) rosuvastatin calcium 20 mg oral tablet (2 sources) HMG-CoA Reductase Inhibitor Start: 05-22-2019 take 20 mg by mouth once daily 20 mg, Oral, NIGHTLY, First dose on Sun05/22/19 at 2100 3 ml sodium chloride 9 mg/ml injection (3 sources) Start: 05-22-2019 10 mL, Intravenous, EVERY 12 HOURS SCHEDULED (2 times per day), First dose on Sun05/22/19 at 0915 Start: 05-22-2019 take 10 mL intraveno usly once as needed 10 mL, Intravenous, PRN, Line Care, After every IV line use, Starting [facility] 05/22/19 at 0855 Start: 05-22-2019 End: 05-23-2019 Intravenous, at 75 mL/hr, CONTINUOUS, Starting [facility] 05/22/19 at 0915 sulfamethoxazole 800 mg / trimethoprim 160 mg oral tablet (1 source) Dihydrofolate Reductase Inhibitor Antibacterial, Sulfonamide Antimicrobial Start: 12-04-2024 Sulfamethoxazole-Trimethopri m 1 TABLET tablet Active 1 {tbl} PO DAILY 30 December 04, 2024 12:00am Completed/Discontinued Medications Medication Drug Class(es) Dates Sig (Normalized) Sig (Original) acyclovir 400 mg oral tablet (18 sources) Herpesvirus Nucleoside Analog DNA Polymerase Inhibitor, Herpes Simplex Virus Nucleoside Analog DNA Polymerase Inhibitor, Herpes Zoster Virus Nucleoside Analog DNA Polymerase Inhibitor Start: 07-24-2024 End: 09-03-2024 take 1 tablet by mouth five times daily Acyclovir 400 mg tablet Discontinued 400 mg PO 5 TIMES DAILY July 24, 2024 12:00am September 03, 2024 1:23pm for 12 days [id number] 200 actuat albuterol 0.09 mg/actuat metered dose inhaler (20 sources) beta2-Adrenergic Agonist Start: 10-01-2023 End: 12-05-2024 Albuterol Sulfate (Proair Hfa) 90 mcg/actuation HFA aerosol inhaler Discontinued 2 NMA INHALATION EVERY 4-6 HOURS as needed for shortness of breath or wheezing 8.5 3 December 03, 2024 8:51am December 05, 2024 2:31pm Chronic obstructive pulmonary disease Chronic obstructive pulmonary disease, unspecified Start: 05-22-2019 take 1 puff(s) by in halation every four hours as needed for wheezing 1 puff, Inhalation, EVERY 4 HOURS PRN, Wheezing, Starting [facility] 05/22/19 at 0958 Common canister amoxicillin 500 mg oral capsule (20 sources) Penicillin-class Antibacterial Start: 09-03-2024 End: 10-02-2024 Amoxicillin 500 mg capsule Discontinued 875 mg PO TWICE A DAY September 03, 2024 1:22pm October 02, 2024 10:31am Start: 07-24-2024 End: 09-03-2024 take 1 capsule by mouth three times daily Amoxicillin 500 mg capsule Discontinued 500 mg PO THREE TIMES A DAY July 24, 2024 12:00am September 03, 2024 1:24pm Start: 10-02-2022 End: 07-18-2023 take 1 capsule by mouth three times daily Amoxicillin 500 mg capsule Discontinued 500 mg PO THREE TIMES A DAY October 02, 2022 12:00am July 18, 2023 2:56pm amoxicillin 500 mg / clavulanate 125 mg oral tablet (19 sources) Penicillin-class Antibacterial Start: 10-01-2023 End: 10-30-2023 Amoxicillin-Pot Clavulanate (Augmentin) 500-125 mg tablet Discontinued 1 {tbl} PO THREE TIMES A DAY October 01, 2023 12:00am October 30, 2023 1:31pm Start: 05-25-2019 End: 05-30-2019 take 1 tablet by mouth twice daily amoxicillin-clavulanate (AUGMENTIN) 875-125 MG per tablet Take 1 tablet by mouth 2 times daily for 5 days 10 tablet 0 05/25/2019 05/30/2019 Active aspirin 81 mg delayed release oral tablet (20 sources) Platelet Aggregation Inhibitor, Nonsteroidal Anti-inflammatory Drug Start: 07-24-2024 End: 09-03-2024 take 1 tablet by mouth once daily Aspirin (Adult Aspirin Regimen) 81 mg tablet,delayed release (DR/EC) Discontinued 81 mg PO daily July 24, 2024 12:00am September 03, 2024 1:24pm Start: 11-24-2020 End: 07-18-2023 take 1 tablet by mouth once daily Aspirin 81 mg Tablet Discontinued 81 mg PO DAILY November 24, 2020 12:00am July 18, 2023 2:56pm heart On Hold: Resume on 12/15/20. benzonatate 100 mg oral capsule (20 sources) Non-narcotic Antitussive Start: 09-03-2024 End: 10-30-2024 take 1 capsule by mouth three times daily Benzonatate 100 mg capsule Discontinued 100 mg PO THREE TIMES A DAY September 03, 2024 12:00am October 30, 2024 10:04am Start: 03-19-2024 End: 07-24-2024 take 1 capsule by mouth three times daily Benzonatate 100 mg capsule Discontinued 100 mg PO THREE TIMES A DAY March 19, 2024 1:00am July 24, 2024 3:46pm Start: 10-01-2023 End: 10-30-2023 take 1 capsule by mouth three times daily Benzonatate 100 mg capsule Discontinued 100 mg PO THREE TIMES A DAY October 01, 2023 12:00am October 30, 2023 1:31pm Budesonide-Formoterol (20 sources) Corticosteroid, beta2-Adrenergic Agonist Start: 10-01-2023 End: 12-03-2024 Budesonide-Formoterol (Symbicort) 160-4.5 mcg/actuation HFA aerosol inhaler Discontinued 2 NMA INHALATION TWICE A DAY October 01, 2023 12:00am December 03, 2024 8:51am Start: 10-01-2023 Budesonide-For moterol (Symbicort) 160-4.5 mcg/actuation HFA aerosol inhaler Active 2 NMA INHALATION TWICE A DAY October 01, 2023 12:00am Start: 11-24-2020 End: 07-18-2023 Budesonide-Formoterol (Symbi betsey) 160-4.5 mcg/actuation Hfa Aerosol Inhaler Discontinued 2 NMA INHALATION TWICE A DAY November 24, 2020 12:00am July 18, 2023 2:56pm copd Start: 11-24-2020 End: 07-18-2023 Budesonide-Formoterol (Symbi betsey) 160-4.5 mcg/actuation Hfa Aerosol Inhaler Discontinued 2 NMA INHALATION TWICE A DAY November 24, 2020 12:00am July 18, 2023 2:56pm Start: 11-24-2020 take 1 puff(s) by in halation twice daily Budesonide-Formoterol (Symbicort) 160-4.5 mcg/actuation Hfa Aerosol Inhaler Active 2 PUFF INHALATION TWICE A DAY November 24, 2020 12:00am Start: 11-24-2020 take 1 puff(s) by in halation twice daily Budesonide-Formoterol (Symbicort) 160-4.5 mcg/actuation Hfa Aerosol Inhaler Active 2 PUFF INHALATION TWICE A DAY November 23, 2020 11:00pm take 2 puff(s) by in halation twice daily budesonide-formoterol (SYMBICORT) 160-4.5 MCG/ACT AERO Inhale 2 puffs into the lungs 2 times daily 0 Suspended cefuroxime 500 mg oral tablet (18 sources) Cephalosporin Antibacterial Start: 03-19-2024 End: 07-31-2024 take 1 tablet by mouth twice daily Cefuroxime Axetil 500 mg tablet Discontinued 500 mg PO TWICE A DAY March 19, 2024 1:00am July 31, 2024 8:49am ciprofloxacin 500 mg oral tablet (20 sources) Quinolone Antimicrobial Start: 12-01-2020 End: 10-02-2022 take 1 tablet by mouth twice daily Ciprofloxacin Hcl (Cipro) 500 mg tablet Discontinued 500 mg PO TWICE A DAY 14 December 01, 2020 12:00am October 02, 2022 3:49pm clotrimazole 10 mg/ml topical cream (18 sources) Azole Antifungal Start: 07-24-2024 End: 09-03-2024 Clotrimazole 1 % cream Discontinued 1 NMA TOPICAL TWICE A DAY July 24, 2024 12:00am September 03, 2024 1:24pm fexofenadine hydrochloride 180 mg oral tablet (18 sources) Histamine-1 Receptor Antagonist Start: 09-03-2024 End: 10-30-2024 take 1 tablet by mouth once daily Fexofenadine (Allergy Relief (Fexofenadine)) 180 mg tablet Discontinued 180 mg PO daily September 03, 2024 12:00am October 30, 2024 10:05am finasteride 5 mg oral tablet (20 sources) 5-alpha Reductase Inhibitor Start: 11-24-2020 End: 12-01-2020 take 1 tablet by mouth once daily Finasteride 5 mg Tablet Discontinued 5 mg PO DAILY November 24, 2020 12:00am December 01, 2020 1:00pm prostate Start: 05-22-2019 take 1 tablet by isabell th once daily 5 mg, Oral, DAILY, First dose on [facility] 05/22/19 at 1015 Women should not handle crushed or broken finasteride tablets when they are or may potentially be , due to potential risk to the fetus. 150 ml glucose 50 mg/ml injection (1 source) Start: 05-23-2019 End: 05-23-2019 dextrose 5 % solution 12 hr guaiFENesin 600 mg extended release oral tablet (20 sources) Start: 09-03-2024 End: 10-30-2024 take 1 tablet by mouth twice daily, then take 1 tablet by mouth every twelve hours Guaifenesin (Mucus Relief Er) 600 mg tablet extended release 12hr Discontinued 600 mg PO TWICE A DAY September 03, 2024 12:00am October 30, 2024 10:05am Start: 03-19-2024 End: 07-31-2024 take 1 tablet by mouth twice daily, then take 1 tablet by mouth every twelve hours Guaifenesin (Mucinex) 600 mg tablet extended release 12hr Discontinued 600 mg PO TWICE A DAY March 19, 2024 1:00am July 31, 2024 8:49am Start: 10-01-2023 End: 10-30-2023 take 1 tablet by mouth twice daily, then take 1 tablet by mouth every twelve hours Guaifenesin (Mucinex) 1,200 mg tablet extended release 12hr Discontinued 1200 mg PO TWICE A DAY October 01, 2023 12:00am October 30, 2023 1:31pm Magic Mouth Wash (Bmx) 180 mL suspension (18 sources) Start: 07-24-2024 End: 09-03-2024 take 1 mL by mouth four times daily as needed Magic Mouth Wash (Bmx) 180 mL suspension Discontinued 2 mL PO 4 TIMES DAILY as needed 180 July 24, 2024 12:00am September 03, 2024 1:24pm 24 hr metoprolol succinate 25 mg extended release oral tablet (20 sources) beta-Adrenergic Elisha Start: 09-03-2024 End: 10-30-2024 take 2 tablets by mouth twice daily Metoprolol Succinate 25 mg tablet extended release 24 hr Discontinued 12.5 mg PO TWICE A DAY September 03, 2024 1:22pm October 30, 2024 10:05am Start: 07-24-2024 End: 09-03-2024 take 1 tablet by mouth once daily Metoprolol Succinate 25 mg tablet extended release 24 hr Discontinued 25 mg PO daily July 24, 2024 12:00am September 03, 2024 1:24pm Start: 11-24-2020 End: 07-18-2023 Metoprolol Tartrate 25 mg Ta blet Discontinued 12.5 mg PO TWICE A DAY November 24, 2020 12:00am July 18, 2023 2:56pm heart Start: 11-24-2020 take 12.5 mg by mout h twice daily Metoprolol Tartrate Active 12.5 MG PO TWICE A DAY November 24, 2020 12:00am Start: 05-22-2019 take 12.5 mg by mout h twice daily 12.5 mg, Oral, 2 TIMES DAILY, First dose on [facility] 05/22/19 at 1015 metoprolol tartr ate (LOPRESSOR) 25 MG tablet Take 12.5 mg by mouth 2 times daily 0 Suspended pravastatin sodium 40 mg oral tablet (18 sources) HMG-CoA Reductase Inhibitor Start: 10-01-2023 End: 03-19-2024 take 1 tablet by mouth once daily Pravastatin 40 mg tablet Discontinued 40 mg PO DAILY October 01, 2023 12:00am March 19, 2024 3:44pm predniSONE 20 mg oral tablet (18 sources) Start: 03-19-2024 End: 07-24-2024 take 1 tablet by mouth once daily Prednisone 20 mg tablet Discontinued 20 mg PO daily March 19, 2024 1:00am July 24, 2024 3:47pm tamsulosin hydrochloride 0.4 mg oral capsule (20 sources) alpha-Adrenergic Elisha Start: 11-24-2020 End: 12-01-2020 take 1 capsule by mouth twice daily Tamsulosin 0.4 mg Capsule Discontinued 0.4 mg PO TWICE A DAY November 24, 2020 12:00am December 01, 2020 1:00pm prostate Start: 05-22-2019 take 0.8 mg by mouth once merle y 0.8 mg, Oral, DAILY, First dose on Coty 05/22/19 at 1015 Do not crush or break. take 2 capsules by m outh once daily tamsulosin (FLOMAX) 0.4 MG capsule Take 0.8 mg by mouth daily 0 Suspended Problems Active Problems Problem Classification Problem Date Documented Da te Episodic/Chronic Anxiety disorders (18 sources) Anxiety; Translations: [Anxiety disorder, unspecified] 07-31-2024 Chronic Chronic kidney disease (18 sources) Chronic kidney disease; Translations: [Chronic kidney disease, unspecified] 07-31-2024 Chronic Chronic obstructive pulmonary disease and bronchiectasis (20 sources) Chronic obstructive lung disease; Translations: [Chronic obstructive pulmonary disease, unspecified] Onset: 12-04-2024 07-31-2024 Chronic Comment on above: Asthma COPD overlap syndrome Coronary atherosclerosis and other heart disease (20 sources) Coronary arteriosclerosis; Translations: [Atherosclerotic heart disease of [place] coronary artery without angina pectoris] 09-03-2024 Chronic Deficiency and other anemia (18 sources) Iron deficiency anemia; Translations: [Iron deficiency anemia, unspecified] 07-31-2024 Episodic Diseases of mouth; excluding dental (20 sources) Mass of parotid gland; Translations: [Other diseases of salivary glands] Onset: 02-09-2025 01-03-2023 Episodic Comment on above: R parotid mass on CT done on 12/25/2022.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 02/16/2025 Blood cult ures and urine culture are negative. Still has persistent fevers. CXR on 02/16/2025 was negative. Genitourinary symptoms and ill-defined conditions (1 source) Personal history of other diseases of urinary system; Translations: [Personal history of other diseases of urinary system] Onset: 03-03-2025 Episodic Heart valve disorders (20 sources) History of aortic valve replacement; Translations: [Presence of prosthetic heart valve] Onset: 09-03-2024 09-03-2024 Chronic Hyperplasia of prostate (20 sources) Benign prostatic hypertrophy with outflow obstruction; Translations: [Benign prostatic hyperplasia with lower urinary tract symptoms] Onset: 03-09-2025 12-01-2020 Chronic Immunity disorders (10 sources) Hypogammaglobulinemi a; 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 Pt want time limited therapy.Suggested therapy with Bendeka and Rituxan, discussed risks, benefits and side effects, Pt accepted to proceed with therapy. CLL/SLL, Lymphocytos is with Prostate infiltration and abdominal adenopathy, CD38 positive, IgVH negative, 46,XY,add(11)(p15),del(11)(q21q25)[12]/46,XY[8].On observation.Discussed treatment regimens, time limited vs indefinite therapy. Pt want time limited therapy.Suggested therapy with Bendeka and Rituxan, discussed risks, benefits and side effects, Pt accepted to proceed with therapy. CLL/SLL, Lymphocytos is with Prostate infiltration and abdominal adenopathy, CD38 positive, IgVH negative, 46,XY,add(11)(p15),del(11)(q21q25)[12]/46,XY[8].Comes to start therapy with Bendeka and Rituxan because of fevers, discussed risks, benefits and side effects, Pt accepted to proceed with therapy.Counts and chemistry reviewed, Ok for therapy. CLL/SLL, Lymphocytos is with Prostate infiltration and abdominal adenopathy, CD38 positive, IgVH negative, 46,XY,add(11)(p15),del(11)(q21q25)[12]/46,XY[8].Started Bendamustine Rituxan December 19, 2024. Tolerated with no reported toxicities and have shown a response with significant drop in ALC to within normal range following 1 cycle and no evidence for tumor lysis. CLL/SLL, Lymphocytos is with Prostate infiltration and abdominal adenopathy, CD38 positive, IgVH negative, 46,XY,add(11)(p15),del(11)(q21q25)[12]/46,XY[8].Started Bendamustine + Rituxan December 19, 2024. Got C2 on 01/14/2025.Comes for Toxicity check, counts and chemistry reviewed, Haily counts show no neutropenia/thrombocytopenia. CLL/SLL, Lymphocytos is with Prostate infiltration and abdominal adenopathy, CD38 positive, IgVH negative, 46,XY,add(11)(p15),del(11)(q21q25)[12]/46,XY[8].Started Bendamustine + Rituxan December 19, 2024. Got C2 on 01/14/2025. CLL/SLL, Lymphocytos is with Prostate infiltration and abdominal adenopathy, CD38 positive, IgVH negative, 46,XY,add(11)(p15),del(11)(q21q25)[12]/46,XY[8].Started Bendamustine + Rituxan December 19, 2024. CLL/SLL, Lymphocytos is with Prostate infiltration and abdominal adenopathy, CD38 positive, IgVH negative, 46,XY,add(11)(p15),del(11)(q21q25)[12]/46,XY[8].Started Bendamustine + Rituxan December 19, 2024. Has got 3 cycles. Last cycle was on 02/09/2025.Has Hematologic remission.PET/CT on 03/03/2025 reviewed, shows new hypermetabolic areas in both lungs, subcarinal node, multiple bony lesion, R parotid gland. enlarged Prostate. Discussed findings on PET/CT. Suggested holding further therapy and evaluate lung nodules, Pt agreed. Leukemias (18 sources) Leukemias Maintenance chemotherapy; radiotherapy (20 sources) H/O: malignant neoplasm; Translations: [Encounter for antineoplastic immunotherapy] Onset: 12-17-2024 12-17-2024 Chronic Comment on above: Counts and chemistry reviewed, Ok for therapy. Nonspecific chest pain (1 source) Chest pain, unspecified; Translations: [Chest pain, unspecified] Onset: 12-29-2024 Episodic Other aftercare (15 sources) Patient encounter status; Translations: [Encounter for adjustment and management of vascular access device] 12-23-2024 Episodic Comment on above: Patient is a 79-year -old male who presents today for consideration of central venous access (Port-A-Cath) placement. He recently began chemotherapy for his diagnosis of CLL made over 4 years ago due to recurrent infections. After conversing with him, I to remain unclear about his indication for the port since he insists that his peripheral access is more than reasonable and he has a history of bacterial endocarditis requiring valve placement. This short fall in understanding was communicated to oncology Dr. Evans who suggested that patient may ultimately require more cycles of treatment then he currently believes he is due for, but also agrees with a conservative approach going forward given patient's history. He suggested holding on performing port placement for the immediate present. Later in the day I was able to discuss with patient's primary oncologist, Dr. Lewis, who largely echoed the above conversation with Dr. Evans and stated that we could simply cede to patient's preferences if he has viable peripheral access. He will plan to revisit with patient at his next cycle due in early January. Other diseases of kidney and ureters (9 sources) Acute renal insufficiency; Translations: [Disorder of kidney and ureter, unspecified] 12-23-2024 Episodic Other lower respiratory disease (20 sources) Dyspnea on exertion; Translations: [Shortness of breath] 07-31-2024 Episodic Comment on above: Has COPD and Cardiac disease, cannot go to his old specialists. 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 Other lower respiratory disease (12 sources) Wheezing; Translations: [Wheezing] 12-03-2024 Episodic Other lower respiratory disease (20 sources) Hypoxemia; Translations: [Hypoxemia] 12-03-2024 Episodic Other lower respiratory disease (9 sources) Chest pain on breathing; Translations: [Chest pain on breathing] 12-23-2024 Episodic Other lower respiratory disease (1 source) Lung field abnormal Episodic Other lower respiratory disease (2 sources) Other nonspecific abnormal finding of lung field; Translations: [Other nonspecific abnormal finding of lung field] Onset: 03-09-2025 Episodic Other nervous system disorders (18 sources) Neuropathy; Translations: [Polyneuropathy, unspecified] 07-31-2024 Chronic Residual codes; unclassified (20 sources) History of tricuspid valve repair; Translations: [Other specified postprocedural states] 09-03-2024 Episodic Unclassified (2 sources) Food lodged in esophagus Onset: 05-22-2019 Past or Other Problems Problem Classification Problem Date Documented Da te Episodic/Chronic Diabetes mellitus without complication (1 source) Hyperglycemia, unspecified; Translations: [Hyperglycemia, unspecified] Onset: 03-05-2024 Episodic Malaise and fatigue (19 sources) Fatigue; Translations: [Other fatigue] Onset: 09-03-2024 07-31-2024 Episodic Other gastrointestinal disorders (5 sources) Dysphagia; Translations: [Dysphagia, unspecified] Onset: 05-25-2019 Episodic Other injuries and conditions due to external causes (4 sources) Food lodged in esophagus; Translations: [Food in esophagus causing other injury, initial encounter] Onset: 05-22-2019 02-23-2022 Episodic Other lower respiratory disease (1 source) Solitary pulmonary nodule; Translations: [Solitary pulmonary nodule] Onset: 12-17-2024 Episodic Other lower respiratory disease (1 source) Wheezing; Translations: [Wheezing] Onset: 12-04-2024 Episodic Other lower respiratory disease (1 source) Hypoxemia; Translations: [Hypoxemia] Onset: 12-04-2024 Episodic Other lower respiratory disease (1 source) Shortness of breath; Translations: [Shortness of breath] Onset: 09-03-2024 Episodic Septicemia (except in labor) (1 source) Sepsis Episodic Results Test Name Value Interpretation Reference Range Facility 36on 03-24-2025 36 All [facility] imaging uplo aded to PACS. Had to call [facility] for a few CXRs and CT that were missed. They are pushing through [facility] today. Normal [facility] [address] images again for us! Thank you! Normal [facility] Oncology Visit Reporton 03-14 Oncology Visit Report Normal [facility] Immunoglobulin Nikos 5 IMMUNOGLOB G QN 486 mg/dL Low [id number] [facility] Comment on above: Result Comment: Perf ormed at: - [facility] [address] [id number] Director: Rolando Vega PhD, Phone: [phone] Performed By: #### L 3200.1300 ####[facility] [address] [place], [address] Biopsy/Inj or Needle Placeme nton 03-12-2024 Biopsy/Inj or Needle Placement Normal [facility] CBC W/Diff, Automatedon 10- 0-2024 Absolute Lymph 2.48 X10 3/uL Normal 0.83-4.51 [facility] Comment on above: Performed By: #### L 100.0100, L300.3900, L504.2610, L501.1400, L500.4050, L300.4310 ####[facility] [address] [place], [address] Absolute Neut 3.2 X10 3/uL Normal 2.0-7.7 [facility] Comment on above: Performed By: #### L 100.0100, L300.3900, L504.2610, L501.1400, L500.4050, L300.4310 ####[facility] [address] [place], [address] Basophils/100 WBC (Bld) 1.6 % High 0-1 [facility] Comment on above: Performed By: #### L 100.0100, L300.3900, L504.2610, L501.1400, L500.4050, L300.4310 ####[facility] [address] [place], [address] Eosinophils/100 WBC (Bld) 10.6 % High 0-5 [facility] Comment on above: Performed By: #### L 100.0100, L300.3900, L504.2610, L501.1400, L500.4050, L300.4310 ####[facility] [address] [place], [address] Erythrocyte distribution width (RBC) [Ratio] 15.7 % High 11.6-14.6 [facility] Comment on above: Performed By: #### L 100.0100, L300.3900, L504.2610, L501.1400, L500.4050, L300.4310 ####[facility] [address] [place], [address] Hematocrit (Bld) [Volume fraction] 41.2 % Normal 40-54 [facility] Comment on above: Performed By: #### L 100.0100, L300.3900, L504.2610, L501.1400, L500.4050, L300.4310 ####[facility] [address] [place], [address] Hemoglobin (Bld) [Mass/Vol] 13.5 g/dL Normal 13.0-16.5 [facility] Comment on above: Performed By: #### L 100.0100, L300.3900, L504.2610, L501.1400, L500.4050, L300.4310 ####[facility] [address] [place], [address] IG% 0.100 Normal 0.0-0.9 [facility] Comment on above: Result Comment: IG% - Immature Granulocytes (promyelocytes, myelocytes andmetamyelocytes) > 1% indicates that a LEFT SHIFT is Present. Performed By: #### L 100.0100, L300.3900, L504.2610, L501.1400, L500.4050, L300.4310 ####[facility] [address] [place], [address] Lymphocytes/100 WBC (Bld) 34.0 % Normal 19-41 [facility] Comment on above: Performed By: #### L 100.0100, L300.3900, L504.2610, L501.1400, L500.4050, L300.4310 ####[facility] [address] [place], [address] MCH (RBC) [Entitic mass] 27.6 pg Normal 27.0-32.0 [facility] Comment on above: Performed By: #### L 100.0100, L300.3900, L504.2610, L501.1400, L500.4050, L300.4310 ####[facility] [address] [place], [address] MCHC (RBC) [Mass/Vol] 32.8 g/dL Normal 32-36 [facility] Comment on above: Performed By: #### L 100.0100, L300.3900, L504.2610, L501.1400, L500.4050, L300.4310 ####[facility] [address] [place], [address] MCV (RBC) [Entitic vol] 84.3 fL Normal 80-94 [facility] Comment on above: Performed By: #### L 100.0100, L300.3900, L504.2610, L501.1400, L500.4050, L300.4310 ####[facility] [address] [place], [address] Monocytes/100 WBC (Bld) 9.6 % Normal 0-10 [facility] Comment on above: Performed By: #### L 100.0100, L300.3900, L504.2610, L501.1400, L500.4050, L300.4310 ####[facility] [address] [place], [address] Neutrophils/100 WBC (Bld) 44.1 % Low 47-70 [facility] Comment on above: Performed By: #### L 100.0100, L300.3900, L504.2610, L501.1400, L500.4050, L300.4310 ####[facility] [address] [place], [address] Nucleated RBC (Bld) [#/Vol] 0 10*3/uL Normal 0-5 [facility] Comment on above: Performed By: #### L 100.0100, L300.3900, L504.2610, L501.1400, L500.4050, L300.4310 ####[facility] [address] [place], [address] Platelet mean volume (Bld) [Entitic vol] 9.5 fL Normal 6.2-12.0 [facility] Comment on above: Performed By: #### L 100.0100, L300.3900, L504.2610, L501.1400, L500.4050, L300.4310 ####[facility] [address] [place], [address] Platelets (Bld) [#/Vol] 172 10*3/uL Normal 150-450 [facility] Comment on above: Performed By: #### L 100.0100, L300.3900, L504.2610, L501.1400, L500.4050, L300.4310 ####[facility] [address] [place], [address] RBC (Bld) [#/Vol] 4.89 10*6/uL Normal 4.6-6.2 [facility] Comment on above: Performed By: #### L 100.0100, L300.3900, L504.2610, L501.1400, L500.4050, L300.4310 ####[facility] [address] [place], [address] RDW SD 48.6 fl High 35.1-43.9 [facility] Comment on above: Performed By: #### L 100.0100, L300.3900, L504.2610, L501.1400, L500.4050, L300.4310 ####[facility] [address] [place], [address] WBC (Bld) [#/Vol] 7.3 10*3/uL Normal 4.4-11.0 [facility] Comment on above: Performed By: #### L 100.0100, L300.3900, L504.2610, L501.1400, L500.4050, L300.4310 ####[facility] [address] [place], [address] Chest WITH Contraston 2024 Chest WITH Contrast Normal [facility] Comprehensive Metabolic Prof ilon 03-12-2025 Albumin [Mass/Vol] 4.0 g/dL Normal 3.4-4.8 [facility] Comment on above: Performed By: #### L 100.0100, L300.3900, L504.2610, L501.1400, L500.4050, L300.4310 ####[facility] [address] [place], [address] Albumin/Globulin [Mass ratio] 1.7 {ratio} Normal 0.9-2.4 [facility] Comment on above: Performed By: #### L 100.0100, L300.3900, L504.2610, L501.1400, L500.4050, L300.4310 ####[facility] [address] [place], [address] ALK PHOS 67 U/L Normal 40-129 [facility] Comment on above: Performed By: #### L 100.0100, L300.3900, L504.2610, L501.1400, L500.4050, L300.4310 ####[facility] [address] [place], [address] ALT [Catalytic activity/Vol] 15 U/L Normal <=46 [facility] Comment on above: Performed By: #### L 100.0100, L300.3900, L504.2610, L501.1400, L500.4050, L300.4310 ####[facility] [address] [place], [address] AST [Catalytic activity/Vol] 24 U/L Normal <=37 [facility] Comment on above: Performed By: #### L 100.0100, L300.3900, L504.2610, L501.1400, L500.4050, L300.4310 ####[facility] [address] [place], [address] Bilirubin [Mass/Vol] 0.52 mg/dL Normal 0.00-1.30 [facility] Comment on above: Performed By: #### L 100.0100, L300.3900, L504.2610, L501.1400, L500.4050, L300.4310 ####[facility] [address] [place], [address] BUN/CRE 15.0 RATIO Normal 10-20 [facility] Comment on above: Performed By: #### L 100.0100, L300.3900, L504.2610, L501.1400, L500.4050, L300.4310 ####[facility] [address] [place], [address] Calcium [Mass/Vol] 10.0 mg/dL Normal 7.6-11.0 [facility] Comment on above: Performed By: #### L 100.0100, L300.3900, L504.2610, L501.1400, L500.4050, L300.4310 ####[facility] [address] [place], [address] Chloride [Moles/Vol] 108 mmol/L Normal 98-108 [facility] Comment on above: Performed By: #### L 100.0100, L300.3900, L504.2610, L501.1400, L500.4050, L300.4310 ####[facility] [address] [place], [address] CO2 [Moles/Vol] 26.0 mmol/L Normal 21.0-32.0 [facility] Comment on above: Performed By: #### L 100.0100, L300.3900, L504.2610, L501.1400, L500.4050, L300.4310 ####[facility] [address] [place], [address] Creatinine [Mass/Vol] 1.18 mg/dL Normal 0.70-1.20 [facility] Comment on above: Performed By: #### L 100.0100, L300.3900, L504.2610, L501.1400, L500.4050, L300.4310 ####[facility] [address] [place], [place], [phone] ECRCL 43.39 ml/min Low 50-250 [facility] Comment on above: Performed By: #### L 100.0100, L300.3900, L504.2610, L501.1400, L500.4050, L300.4310 ####[facility] [address] [place], [place], [phone] Normal 5-15 [facility] Comment on above: Performed By: #### L 100.0100, L300.3900, L504.2610, L501.1400, L500.4050, L300.4310 ####[facility] [address] [place], [address] GFR/1.73 sq M.predicted among non-blacks MDRD (S/P/Bld) [Vol rate/Area] 64 mL/min/{1.73_m2} Normal >60 [facility] Comment on above: Result Comment: mL/m in/1.73m2 CKD-EPI Creatinine Equation (2020) Performed By: #### L 100.0100, L300.3900, L504.2610, L501.1400, L500.4050, L300.4310 ####[facility] [address] [place], [address] Globulin (S) [Mass/Vol] 2.3 g/dL Normal 2.2-4.2 [facility] Comment on above: Performed By: #### L 100.0100, L300.3900, L504.2610, L501.1400, L500.4050, L300.4310 ####[facility] [address] [place], [address] Glucose [Mass/Vol] 99 mg/dL Normal 70-99 [facility] Comment on above: Performed By: #### L 100.0100, L300.3900, L504.2610, L501.1400, L500.4050, L300.4310 ####[facility] [address] [place], [address] Potassium [Moles/Vol] 5.2 mmol/L High 3.3-5.1 [facility] Comment on above: Performed By: #### L 100.0100, L300.3900, L504.2610, L501.1400, L500.4050, L300.4310 ####[facility] [address] [place], [address] Sodium [Moles/Vol] 142 mmol/L Normal 133-145 [facility] Comment on above: Performed By: #### L 100.0100, L300.3900, L504.2610, L501.1400, L500.4050, L300.4310 ####[facility] [address] [place], [address] T PROT 6.3 g/dL Normal 5.9-8.4 [facility] Comment on above: Performed By: #### L 100.0100, L300.3900, L504.2610, L501.1400, L500.4050, L300.4310 ####[facility] [address] [place], [address] Urea nitrogen [Mass/Vol] 18 mg/dL Normal 4-19 [facility] Comment on above: Performed By: #### L 100.0100, L300.3900, L504.2610, L501.1400, L500.4050, L300.4310 ####[facility] [address] [place], [address] IMMUNOPHENOTYPINGon 03-12-20 BKR DX CODE Use Ordering Normal [facility] Comment on above: Performed By: #### I MMUNOPHENOTYPING #### [facility] (DEFAULT) [address] [address] Flow Interpreted by: Oniel Ayala MD [facility] Comment on above: Performed By: #### I MMUNOPHENOTYPING #### [facility] (DEFAULT) [address] [address] IMMUNOPHENOTYPING FLOW See Scanned Result Normal [facility] Comment on above: Performed By: #### I MMUNOPHENOTYPING #### [facility] (DEFAULT) [address] [address] SAMPLE TYPE Bone Marrow Normal [facility] Comment on above: Performed By: #### I MMUNOPHENOTYPING #### [facility] (DEFAULT) [address] [address] L350.1815on 03-12-2025 Path [facility] SEE PATHOLOGY REPORT Normal [facility] Comment on above: Order Comment: RESUL TS FAXED TO DR LEWIS 03/17/25 0812 Christian Rucker. Result Comment: Spec imen sent to [facility] Pathology Department.Report available in EMR. Performed By: #### L 350.1815 ####[facility] [address] [place], [address] LDHon 03-12-2025 LDH 276 U/L High 87-241 [facility] Comment on above: Order Comment: 1 Performed By: #### L 100.0100, L300.3900, L504.2610, L501.1400, L500.4050, L300.4310 ####[facility] [address] [place], [address] Partial Thromboplast Timeon 03-12-2025 aPTT Coag (Bld) [Time] 23.8 s Low 24.1-36.2 [facility] Comment on above: Performed By: #### L 100.0100, L300.3900, L504.2610, L501.1400, L500.4050, L300.4310 ####[facility] [address] [place], [address] Prothrombin Time w/INRon INR Coag (PPP) [Relative time] 1.0 {INR} Normal [facility] Comment on above: Performed By: #### L 100.0100, L300.3900, L504.2610, L501.1400, L500.4050, L300.4310 ####[facility] [address] [place], [address] PT Coag (PPP) [Time] 13.3 s Normal 11.7-14.9 [facility] Comment on above: Performed By: #### L 100.0100, L300.3900, L504.2610, L501.1400, L500.4050, L300.4310 ####[facility] [address] [place], [address] SURG PATH REQUESTon 03-12-20 Case Report Normal [facility] Comment on above: Result Comment: Surg ical Pathology Report Case: [id number] Authorizing Provider: Clement Lewis MD Collected: 03/12/2025 09:30 AM Ordering Location: [facility] Received: 03/12/2025 05:46 PM [employer] Pathologist: Oniel Ayala MD Specimens: A) - SURG PATH, Core bx B) - SURG PATH, Clot Performed By: #### S URGP #### [facility] (DEFAULT) [address] [place] [address] Clinical History Associated diagnosis : CLL [C91.10]. [facility] Comment on above: Performed By: #### S URGP #### [facility] (DEFAULT) [address] [place] [address] Diagnosis Comments Normal [facility] Comment on above: Result Comment: Subm itted specimens demonstrate a normocellular marrow with maturing trilineage hematopoiesis. A kappa restricted B-cell population (~12% of the lymphocytes, ~3% of the total events analyzed) is detected by flow cytometry. IHC stains demonstrate a CD5+ lymphoid infiltrate that is largely negative for CD3 and CD20, and is favored to show [place]-5 and LEF1 expression. The overall findings are consistent with marrow involvement by a CD5+ B-cell lymphoproliferative disorder, with an immunophenotype that is most commonly observed in chronic lymphocytic leukemia (CLL). If there was no prior history of CLL, and in the absence of absolute peripheral blood lymphocytosis, adenopathy or other extramedullary disease, the findings may be best interpreted as a monoclonal B-cell lymphocytosis (MBL), with a CLL phenotype. Otherwise, the findings indicate persistent CLL. Clinico-radiologic correlation is recommended. Performed By: #### S URGP #### [facility] (DEFAULT) [address] [address] Gross Description Normal [facility] Comment on above: Result Comment: The specimen is received in two properly labeled containers with the patient's name and accession number. A. The specimen is designated core bx and consists of one core of yarbrough bone that is 1.2 cm in length and 0.2 cm in diameter. TE 1 Note: This block will be ready after decalcification. B. The specimen is designated clot and consists of an aggregate of dark red blood clot measuring 2.4 x 2.1 x 0.6 cm. RS 1 Lab Use Only: JobID [id number] Grosser for this case was: Judit Gordon Performed By: #### S URGP #### [facility] (DEFAULT) [address] [place] [address] Microscopic Description Normal [facility] Comment on above: Result Comment: A mi croscopic examination was performed. BONE MARROW REPORT The following specimens were interpreted to arrive at the above diagnosis: peripheral blood smear, bone marrow aspirate, decalcified trephine biopsy, iron stain and clot section CBC data and smear review (200 cells): WBC: 7.3 x K/uL; Hgb: 13.5 g/dL; Hct: 41.2%; MCV: 84.3 fl; RDW: 15.7%; Plt: 172 K/uL Manual differential: bands 0%, neutrophils 42%, lymphocytes 35%, monocytes 11%, eosinophils 11%, basophils 1% Blood smear findings: Review of the peripheral blood smear demonstrates an adequate leukocyte count without significant morphologic abnormalities. A mild eosinophilia is present. Red cells are present in adequate number with anisocytosis and occasional ovalocytes noted. Platelets are present in adequate number with generally unremarkable morphology. Aspirate smear and/or touch preparation quality: The aspirates are aspicular and hemodilute. The staining is adequate. Bone marrow aspirate smear and/or touch preparation differential (500 cells): Blasts: 0% Promyelocytes: 0% Myelocytes: 7% Metamyelocytes: 4% Bands/Neutrophils: 47% Lymphocytes: 18% Monocytes: 6% Eosinophils: 8% Basophils: 1% Erythroid precursors: 9% Plasma cells: 0% M:E Ratio: The myeloid to erythroid ratio is 9:1 Erythropoiesis: Proportionally decreased in hemodilute aspicular specimens. Predominantly normoblastic maturation. No significant dysplasia. Granulopoiesis: Proportionally increased with a predominance of mature forms in hemodilute aspicular specimens. Blasts are not increased, and dysplasia is not evident. Megakaryocytes: Megakaryocytes are present and show unremarkable morphology. Lymphocytes/plasma cells: The lymphocytes are proportionally increased in hemodilute aspicular specimens. Plasma cells are unremarkable. Iron stain: Iron staining cannot be evaluated due to the lack of bone spicules on the iron aspirate stain. Ring sideroblasts are not identified. The iron control shows appropriate reactivity. Biopsy and clot findings: The biopsy is adequate for evaluation, and shows a cellularity of 30-40%. There is a background of maturing trilineage hematopoiesis. An interstitial lymphoid infiltrate, comprised of predominantly small lymphoid cells with scant cytoplasm, round nuclear contours, condensed chromatin, and generally inconspicuous nucleoli, is noted. Clot sections demonstrate abundant blood with scattered variably cellular marrow hematopoietic elements morphologically similar to the core biopsies. Cytochemical/immunohistochemical/in-situ hybridization stains: Biopsy core (A1) CD5 highlights scattered loose lymphoid aggregates, which are negative for CD20, mostly negative for CD3, and are favored to show dim [place]-5 and LEF1 positivity. BCL-1 is negative in lymphocytes. E-cadherin highlights scattered background erythroid precursors. Flow cytometric analysis (marrow aspirate): See separate report. Flow cytometric analysis demonstrates a kappa surface light chain restricted B-cell population expressing CD19, CD5, CD20 (dim), CD23, CD43, and lacking CD79b and FMC7. There is a small CD19+/CD10+ B cell population lacking surface light chain expression which is favored to represent hematogones (normal B-cell precursors). The T-cell CD4/CD8 ratio is inverted without additional overt loss of T-cell antigens as can be seen secondary to immunomodulation or immune deficiency. Myeloid blasts are not increased. Cytogenetics/FISH and Molecular Studies: Performed and resulted in a separate report. *The above report complies, in slightly modified form, with the guidelines of the [employer] for the reporting of cancer specimens. *Hematopoietic neoplasms are classified according to: - WHO Classification of Tumours Editorial Board. Haematolymphoid tumours. Lane (Lorna): International Agency for Research on Cancer; (WHO classification of tumours series, 5th ed.; vol. 11, 2021). https://publications.iarc.fr. - The International Consensus Classification of Mature Lymphoid Neoplasms: a report from the Clinical Advisory Committee. Blood. 2021Jan 26;140(11):4171-1975. doi: 10.1182/blood.2917508425. Erratum in: Blood. 2022Jun 08;141(4):437. PMID: 90607707; PMCID: [id number]. -International Consensus Classification of Myeloid Neoplasms and Acute Leukemias: integrating morphologic, clinical, and genomic data. Blood. 2021Jan 26;140(11):9709-7709. doi: 10.1182/blood.7382561055. PMID: 71152216; PMCID: QBU2154987. Immunohistochemical stains were performed on block A1 in addition to flow cytometry on specimen A to further characterize the lymphocytes in the context of cell morphology and tissue architecture, since discrepancy between flow cytometric analysis and morphology can occur due to sampling bias, preferential loss of targeted cells, or hemodilution. All controls show appropriate reactivity. All immunohistochemistry (IHC), in situ hybridization (AFUA), and histochemical t (more content not included)... Performed By: #### S URGP #### [facility] (DEFAULT) [address] [address] Pathologic Diagnosis Normal [facility] Comment on above: Result Comment: A. B one marrow, biopsy [place] restricted CD5+ B-cell lymphoproliferative disorder, see comment Normocellular (30-40% cellularity) bone marrow with maturing trilineage hematopoiesis B. Bone marrow, clot Abundant blood and variably cellular marrow particles at 2359 EST Performed By: #### S URGP #### [facility] (DEFAULT) [address] [address] Professional Interpretation Performed at: [facility] Comment on above: Result Comment: [facility] For Immediate Release to Patient's MyChart? Yes [address] [place] [address] Performed By: #### S URGP #### [facility] (DEFAULT) [address] [address] Uric Acidon 03-12-2025 URIC 5.3 mg/dL Normal 3.5-7.2 [facility] Comment on above: Result Comment: The drugs N-Acetylcysteine and Metamizole may falselydepress this assay. Performed By: #### L 100.0100, L300.3900, L504.2610, L501.1400, L500.4050, L300.4310 ####[facility] [address] [place], [place], [id number] Absolute lymphocyte countOrd ered By: Demetra Sotelo on 03-09-2025 Lymphocytes Auto (Unsp spec) [#/Vol] 1.78 10*3/uL 0.83-4.51 [facility] Absolute neutrophil countOrd ered By: Lalairam Sotelo on 03-09-2025 Neutrophils (Bld) [#/Vol] 3.8 10*3/uL 2.0-7.7 [facility] Anion gap in Serum or Plasma Or[facility] By: [facility] on 03-09-2025 Anion gap [Moles/Vol] 8 mmol/L - [facility] Automated lymphocyte count a s percentage of total leukocytesOrdered By: Demetra Sotelo on 03-09-2025 Lymphocytes/100 WBC Auto (Unsp spec) 24.9 % [facility] BUN/creatinine ratioOrdered By: [facility] on 03-09-2025 Urea nitrogen/Creatinine [Mass ratio] 11.5 mg/mg 03-02 [facility] Basophil percentageOrdered B y: Demetra Sotelo on 03-09-2025 Basophils/100 WBC (Bld) 1.5 % High 0-1 [facility] Bilirubin, totalOrdered By: Demetra Sotelo on 03-09-2025 Bilirubin [Mass/Vol] 0.54 mg/dL 0.00-1.30 [facility] CBC W/Diff, Automatedon 02-12 Absolute Lymph 1.78 X10 3/uL Normal 0.83-4.51 [facility] Comment on above: Performed By: #### L 100.0100, L501.2300, L504.2610, L501.5200, L500.4050 ####[facility] [address] [place], [address] Absolute Neut 3.8 X10 3/uL Normal 2.0-7.7 [facility] Comment on above: Performed By: #### L 100.0100, L501.2300, L504.2610, L501.5200, L500.4050 ####[facility] [address] [place], [address] Basophils/100 WBC (Bld) 1.5 % High 0-1 [facility] Comment on above: Performed By: #### L 100.0100, L501.2300, L504.2610, L501.5200, L500.4050 ####[facility] [address] [place], [address] Eosinophils/100 WBC (Bld) 8.1 % High 0-5 [facility] Comment on above: Performed By: #### L 100.0100, L501.2300, L504.2610, L501.5200, L500.4050 ####[facility] [address] [place], [address] Erythrocyte distribution width (RBC) [Ratio] 15.9 % High 11.6-14.6 [facility] Comment on above: Performed By: #### L 100.0100, L501.2300, L504.2610, L501.5200, L500.4050 ####[facility] [address] [place], [address] Hematocrit (Bld) [Volume fraction] 39.6 % Low 40-54 [facility] Comment on above: Performed By: #### L 100.0100, L501.2300, L504.2610, L501.5200, L500.4050 ####[facility] [address] [place], [address] Hemoglobin (Bld) [Mass/Vol] 12.6 g/dL Low 13.0-16.5 [facility] Comment on above: Performed By: #### L 100.0100, L501.2300, L504.2610, L501.5200, L500.4050 ####[facility] [address] [place], [address] IG% 0.600 Normal 0.0-0.9 [facility] Comment on above: Result Comment: IG% - Immature Granulocytes (promyelocytes, myelocytes andmetamyelocytes) > 1% indicates that a LEFT SHIFT is Present. Performed By: #### L 100.0100, L501.2300, L504.2610, L501.5200, L500.4050 ####[facility] [address] [place], [address] Lymphocytes/100 WBC (Bld) 24.9 % Normal 19-41 [facility] Comment on above: Performed By: #### L 100.0100, L501.2300, L504.2610, L501.5200, L500.4050 ####[facility] [address] [place], [address] MCH (RBC) [Entitic mass] 27.3 pg Normal 27.0-32.0 [facility] Comment on above: Performed By: #### L 100.0100, L501.2300, L504.2610, L501.5200, L500.4050 ####[facility] [address] [place], [address] MCHC (RBC) [Mass/Vol] 31.8 g/dL Low 32-36 [facility] Comment on above: Performed By: #### L 100.0100, L501.2300, L504.2610, L501.5200, L500.4050 ####[facility] [address] [place], [address] MCV (RBC) [Entitic vol] 85.7 fL Normal 80-94 [facility] Comment on above: Performed By: #### L 100.0100, L501.2300, L504.2610, L501.5200, L500.4050 ####[facility] [address] [place], [address] Monocytes/100 WBC (Bld) 11.6 % High 0-10 [facility] Comment on above: Performed By: #### L 100.0100, L501.2300, L504.2610, L501.5200, L500.4050 ####[facility] [address] [place], [address] Neutrophils/100 WBC (Bld) 53.3 % Normal 47-70 [facility] Comment on above: Performed By: #### L 100.0100, L501.2300, L504.2610, L501.5200, L500.4050 ####[facility] [address] [place], [address] Nucleated RBC (Bld) [#/Vol] 0 10*3/uL Normal 0-5 [facility] Comment on above: Performed By: #### L 100.0100, L501.2300, L504.2610, L501.5200, L500.4050 ####[facility] [address] [place], [address] Platelet mean volume (Bld) [Entitic vol] 9.5 fL Normal 6.2-12.0 [facility] Comment on above: Performed By: #### L 100.0100, L501.2300, L504.2610, L501.5200, L500.4050 ####[facility] [address] [place], [address] Platelets (Bld) [#/Vol] 150 10*3/uL Normal 150-450 [facility] Comment on above: Performed By: #### L 100.0100, L501.2300, L504.2610, L501.5200, L500.4050 ####[facility] [address] [place], [address] RBC (Bld) [#/Vol] 4.62 10*6/uL Normal 4.6-6.2 [facility] Comment on above: Performed By: #### L 100.0100, L501.2300, L504.2610, L501.5200, L500.4050 ####[facility] [address] [place], [address] RDW SD 49.8 fl High 35.1-43.9 [facility] Comment on above: Performed By: #### L 100.0100, L501.2300, L504.2610, L501.5200, L500.4050 ####[facility] [address] [place], [address] WBC (Bld) [#/Vol] 7.1 10*3/uL Normal 4.4-11.0 [facility] Comment on above: Performed By: #### L 100.0100, L501.2300, L504.2610, L501.5200, L500.4050 ####[facility] [address] [place], [address] Carbon dioxide, total [Moles /volume] in Central venous bloodOrdered By: Demetra Sotelo on 03-09-2025 CO2 [Moles/Vol] 26.7 mmol/L 21.0-32.0 [facility] Chloride assayOrdered By: Javier Sotelo on 03-09-2025 Chloride [Moles/Vol] 108 mmol/L 98-108 [facility] Comprehensive Metabolic Prof ilon 03-09-2025 Albumin [Mass/Vol] 3.7 g/dL Normal 3.4-4.8 [facility] Comment on above: Performed By: #### L 100.0100, L501.2300, L504.2610, L501.5200, L500.4050 ####[facility] [address] [place], [address] Albumin/Globulin [Mass ratio] 1.8 {ratio} Normal 0.9-2.4 [facility] Comment on above: Performed By: #### L 100.0100, L501.2300, L504.2610, L501.5200, L500.4050 ####[facility] [address] [place], [address] ALK PHOS 64 U/L Normal 40-129 [facility] Comment on above: Performed By: #### L 100.0100, L501.2300, L504.2610, L501.5200, L500.4050 ####[facility] [address] [place], [address] ALT [Catalytic activity/Vol] 16 U/L Normal <=46 [facility] Comment on above: Performed By: #### L 100.0100, L501.2300, L504.2610, L501.5200, L500.4050 ####[facility] [address] [place], [address] AST [Catalytic activity/Vol] 23 U/L Normal <=37 [facility] Comment on above: Performed By: #### L 100.0100, L501.2300, L504.2610, L501.5200, L500.4050 ####[facility] [address] [place], [address] Bilirubin [Mass/Vol] 0.54 mg/dL Normal 0.00-1.30 [facility] Comment on above: Performed By: #### L 100.0100, L501.2300, L504.2610, L501.5200, L500.4050 ####[facility] [address] [place], [address] BUN/CRE 11.5 RATIO Normal 10-20 [facility] Comment on above: Performed By: #### L 100.0100, L501.2300, L504.2610, L501.5200, L500.4050 ####[facility] [address] [place], [address] Calcium [Mass/Vol] 9.2 mg/dL Normal 7.6-11.0 [facility] Comment on above: Performed By: #### L 100.0100, L501.2300, L504.2610, L501.5200, L500.4050 ####[facility] [address] [place], [address] Chloride [Moles/Vol] 108 mmol/L Normal 98-108 [facility] Comment on above: Performed By: #### L 100.0100, L501.2300, L504.2610, L501.5200, L500.4050 ####[facility] [address] [place], [address] CO2 [Moles/Vol] 26.7 mmol/L Normal 21.0-32.0 [facility] Comment on above: Performed By: #### L 100.0100, L501.2300, L504.2610, L501.5200, L500.4050 ####[facility] [address] [place], [address] Creatinine [Mass/Vol] 1.03 mg/dL Normal 0.70-1.20 [facility] Comment on above: Performed By: #### L 100.0100, L501.2300, L504.2610, L501.5200, L500.4050 ####[facility] [address] [place], [address] ECRCL 54.04 ml/min Normal 50-250 [facility] Comment on above: Performed By: #### L 100.0100, L501.2300, L504.2610, L501.5200, L500.4050 ####[facility] [address] [place], [address] GAP 8 Normal 5-15 [facility] Comment on above: Performed By: #### L 100.0100, L501.2300, L504.2610, L501.5200, L500.4050 ####[facility] [address] [place], [address] GFR/1.73 sq M.predicted among non-blacks MDRD (S/P/Bld) [Vol rate/Area] 75 mL/min/{1.73_m2} Normal >60 [facility] Comment on above: Result Comment: mL/m in/1.73m2 CKD-EPI Creatinine Equation (2020) Performed By: #### L 100.0100, L501.2300, L504.2610, L501.5200, L500.4050 ####[facility] [address] [place], [address] Globulin (S) [Mass/Vol] 2.0 g/dL Low 2.2-4.2 [facility] Comment on above: Performed By: #### L 100.0100, L501.2300, L504.2610, L501.5200, L500.4050 ####[facility] [address] [place], [address] Glucose [Mass/Vol] 101 mg/dL High 70-99 [facility] Comment on above: Performed By: #### L 100.0100, L501.2300, L504.2610, L501.5200, L500.4050 ####[facility] [address] [place], [address] Potassium [Moles/Vol] 4.0 mmol/L Normal 3.3-5.1 [facility] Comment on above: Performed By: #### L 100.0100, L501.2300, L504.2610, L501.5200, L500.4050 ####[facility] [address] [place], [address] Sodium [Moles/Vol] 142 mmol/L Normal 133-145 [facility] Comment on above: Performed By: #### L 100.0100, L501.2300, L504.2610, L501.5200, L500.4050 ####[facility] [address] [place], [address] T PROT 5.8 g/dL Low 5.9-8.4 [facility] Comment on above: Performed By: #### L 100.0100, L501.2300, L504.2610, L501.5200, L500.4050 ####[facility] [address] [place], [address] Urea nitrogen [Mass/Vol] 12 mg/dL Normal 4-19 [facility] Comment on above: Performed By: #### L 100.0100, L501.2300, L504.2610, L501.5200, L500.4050 ####[facility] [address] [place], [place], [id number]) Eosinophil percentageOrdered By: Demetra Sotelo on 03-09-2025 Eosinophils/100 WBC (Bld) 8.1 % High 0-5 [facility] Erythrocyte distribution wid th ratioOrdered By: Demetra Sotelo on 03-09-2025 Erythrocyte distribution width (RBC) [Ratio] 15.9 % High 11.6-14.6 [facility] Erythrocyte distribution wid th standard deviationOrdered By: [facility] on 03-09-2025 Erythrocyte distribution width (RBC) [Ratio] 49.8 fl High 35.1-43.9 [facility] Glomerular filtration rate ( GFR) estimation/1.73 sq m using serum, plasma, or whole bOrdered By: Demetra Sotelo on 03-09-2025 GFR/1.73 sq M.predicted among non-blacks MDRD (S/P/Bld) [Vol rate/Area] 75 mL/min/{1.73_m2} >60 [facility] Comment on above: mL/min/1.73m2 CKD-EP I Creatinine Equation (2020) Hematocrit Auto (Bld) [Volum e fraction]Ordered By: Demetra Sotelo on 03-09-2025 Hematocrit (Bld) [Volume fraction] 39.6 % Low 40-54 [facility] Hemoglobin measurementOrdere d By: Demetra Sotelo on 03-09-2025 Hemoglobin (Bld) [Mass/Vol] 12.6 g/dL Low 13.0-16.5 [facility] Immature granulocytes/100 WB C Auto (Bld)Ordered By: Demetra Sotelo on 03-09-2025 Immature granulocytes/100 WBC (Bld) 0.600 % 0.0-0.9 [facility] Comment on above: IG% - Immature Granu locytes (promyelocytes, myelocytes and metamyelocytes) > 1% indicates that a LEFT SHIFT is Present. LDHon 03-09-2025 LDH 240 U/L Normal 87-241 [facility] Comment on above: Order Comment: 1 Performed By: #### L 100.0100, L501.2300, L504.2610, L501.5200, L500.4050 ####[facility] [address] [place], [address] Laboratory - Chemistry and C hemistry - challengeOrdered By: [facility] Sotelo on 03-09-2025 AST [Catalytic activity/Vol] 23 U/L <38 [facility] Lactate dehydrogenase (LDH) measurementOrdered By: [facility] S[facility] on 03-09-2025 LDH [Catalytic activity/Vol] 240 U/L 87-241 [facility] MCV (mean corpuscular volume ) determinationOrdered By: Demetra Soteol on 03-09-2025 MCV (RBC) [Entitic vol] 85.7 fL 80-94 [facility] Magnesiumon 03-09-2025 Magnesium [Mass/Vol] 2.1 mg/dL Normal 1.5-2.2 [facility] Comment on above: Performed By: #### L 100.0100, L501.2300, L504.2610, L501.5200, L500.4050 ####[facility] [address] [place], [address] Magnesium measurement (mass/ volume)Ordered By: Demetra Sotelo on 03-09-2025 Magnesium (Unsp spec) [Mass/Vol] 2.1 mg/dL 1.5-2.2 [facility] Mean corpuscular hemoglobin (MCH) determinationOrdered By: Demetra Sotelo on 03-09-2025 MCH (RBC) [Entitic mass] 27.3 pg 27.0-32.0 [facility] Mean corpuscular hemoglobin concentration (MCHC) determinationOrdered By: Lalairam Sotelo on 03-09-2025 MCHC (RBC) [Mass/Vol] 31.8 g/dL Low 32-36 [facility] Mean platelet volume determi nationOrdered By: [facility] on 03-09-2025 Platelet mean volume (Bld) [Entitic vol] 9.5 fL 6.2-12.0 [facility] Monocyte percentageOrdered B y: [facility] on 03-09-2025 Monocytes/100 WBC (Bld) 11.6 % High 0-10 [facility] Neutrophil percentageOrdered By: [facility] on 03-09-2025 Neutrophils/100 WBC (Bld) 53.3 % 47-70 [facility] Nucleated red blood cell per centageOrdered By: [facility] on 03-09-2025 Nucleated RBC/100 WBC (Bld) [Ratio] 0 % 0-5 [facility] Oncology Visit Reporton 02-12 Oncology Visit Report Normal [facility] PSA,Total- Diagnosticon 02-12 PSA, DIAGNOSTIC 7.88 ng/mL High 0.00-4.00 [facility] Comment on above: Result Comment: This test was performed using the [employer] tPSAmethod. Measured values of a patient??sample can varydepending on the testing procedure used. PSA valuesdetermined on patient samples by different testingprocedures cannot be used interchangeably. If there is achange in PSA assays while monitoring therapy, sequentialtesting should be performed to confirm baseline values. Performed By: #### L 501.9940 ####[facility] [address] [place], [address] Phosphoruson 03-09-2025 Phosphate [Mass/Vol] 2.4 mg/dL Low 2.7-4.5 [facility] Comment on above: Performed By: #### L 100.0100, L501.2300, L504.2610, L501.5200, L500.4050 ####[facility] [address] [place], [address] Platelet countOrdered By: Javier Sotelo on 03-09-2025 Platelets (Bld) [#/Vol] 150 10*3/uL 150-450 [facility] Potassium measurement (mass/ volume)Ordered By: Demetra Sotelo on 03-09-2025 Potassium (Unsp spec) [Mass/Vol] 4.0 mmol/L 3.3-5.1 [facility] RBC Auto (Bld) [#/Vol]Ordere d By: Demetra Sotelo on 03-09-2025 RBC (Bld) [#/Vol] 4.62 10*6/uL 4.6-6.2 [facility] Serum creatinine measurement (mass/volume)Ordered By: Demetra Sotelo on 03-09-2025 Creatinine [Mass/Vol] 1.03 mg/dL 0.70-1.20 [facility] Serum globulin measurementOr dered By: Demetra Sotelo on 03-09-2025 Globulin (S) [Mass/Vol] 2.0 g/dL Low 2.2-4.2 [facility] Serum glucose measurement (m ass/volume)Ordered By: Demetra Sotelo on 03-09-2025 Glucose [Mass/Vol] 101 mg/dL High 70-99 [facility] Serum or plasma alanine brumfield otransferase (ALT) measurementOrdered By: Demetra Sotelo on 03-09-2025 ALT [Catalytic activity/Vol] 16 U/L <47 [facility] Serum or plasma albumin lukas urement (mass/volume)Ordered By: Demetra Sotelo on 03-09-2025 Albumin [Mass/Vol] 3.7 g/dL 3.4-4.8 [facility] Serum or plasma albumin/glob ulin mass ratioOrdered By: Demetra Sotelo on 03-09-2025 Albumin/Globulin [Mass ratio] 1.8 {ratio} 0.9-2.4 [facility] Serum or plasma alkaline simba sphatase measurementOrdered By: Demetra Sotelo on 03-09-2025 ALP [Catalytic activity/Vol] 64 U/L 40-129 [facility] Serum or plasma calcium lukas urement (mass/volume)Ordered By: Demetra Servinhudson on 03-09-2025 Calcium [Mass/Vol] 9.2 mg/dL 7.6-11.0 [facility] Serum or plasma urea nitroge n measurement (mass/volume)Ordered By: Demetra Servinhudson on 03-09-2025 Urea nitrogen [Mass/Vol] 12 mg/dL - [facility] Sodium levelOrdered By: Lala Servinsheila on 03-09-2025 Sodium [Moles/Vol] 142 mmol/L 133-145 [facility] Total proteinOrdered By: Brett Sotelo on 03-09-2025 Protein [Mass/Vol] 5.8 g/dL Low 5.9-8.4 [facility] White blood cell (WBC) count Ordered By: Demetra Servinhudson on 03-09-2025 WBC (Bld) [#/Vol] 7.1 10*3/uL 4.4-11.0 [facility] PET/CT Tumor Base -Thigh Sub son 03-03-2025 PET/CT Tumor Base -Thigh Subs Normal [facility] Culture, Blood (WB)on 2024 CUB No growth in 5 days. Normal [facility] Comment on above: Performed By: #### M 200.1000, M100.2200 ####[facility] [address] [place], [address] Urine Cultureon 02-25-2025 URC Culture exhibits no growth. Normal [facility] Comment on above: Performed By: #### M 200.1000, M100.2200 ####[facility] [address] [place], [address] Basic Metabolic Profile (BMP )on 02-24-2025 BUN/CRE 13.1 RATIO Normal 03-02 [facility] Comment on above: Performed By: #### L 100.0100, L500.2500, L504.2610 ####[facility] [address] [place], [address] Calcium [Mass/Vol] 8.8 mg/dL Normal 7.6-11.0 [facility] Comment on above: Performed By: #### L 100.0100, L500.2500, L504.2610 ####[facility] [address] [place], [address] Chloride [Moles/Vol] 109 mmol/L High 98-108 [facility] Comment on above: Performed By: #### L 100.0100, L500.2500, L504.2610 ####[facility] [address] [place], [address] CO2 [Moles/Vol] 23.9 mmol/L Normal 21.0-32.0 [facility] Comment on above: Performed By: #### L 100.0100, L500.2500, L504.2610 ####[facility] [address] [place], [address] Creatinine [Mass/Vol] 1.06 mg/dL Normal 0.70-1.20 [facility] Comment on above: Performed By: #### L 100.0100, L500.2500, L504.2610 ####[facility] [address] [place], [address] ECRCL 52.23 ml/min Normal 50-250 [facility] Comment on above: Performed By: #### L 100.0100, L500.2500, L504.2610 ####[facility] [address] [place], [address] GAP 9 Normal 5-15 [facility] Comment on above: Performed By: #### L 100.0100, L500.2500, L504.2610 ####[facility] [address] [place], [address] GFR/1.73 sq M.predicted among non-blacks MDRD (S/P/Bld) [Vol rate/Area] 72 mL/min/{1.73_m2} Normal >60 [facility] Comment on above: Result Comment: mL/m in/1.73m2 CKD-EPI Creatinine Equation (2020) Performed By: #### L 100.0100, L500.2500, L504.2610 ####[facility] [address] [place], [address] Glucose [Mass/Vol] 75 mg/dL Normal 70-99 [facility] Comment on above: Performed By: #### L 100.0100, L500.2500, L504.2610 ####[facility] [address] [place], [address] Potassium [Moles/Vol] 4.1 mmol/L Normal 3.3-5.1 [facility] Comment on above: Performed By: #### L 100.0100, L500.2500, L504.2610 ####[facility] [address] [place], [address] Sodium [Moles/Vol] 142 mmol/L Normal 133-145 [facility] Comment on above: Performed By: #### L 100.0100, L500.2500, L504.2610 ####[facility] [address] [place], [address] Urea nitrogen [Mass/Vol] 14 mg/dL Normal 4-19 [facility] Comment on above: Performed By: #### L 100.0100, L500.2500, L504.2610 ####[facility] [address] [place], [address] Bilirubin Test strip Ql (U)O rdered By: Clement Lewis on 02-24-2025 Bilirubin Ql (U) Negative Negative [facility] Blood cultureOrdered By: Sekou Lewis on 02-24-2025 Bacteria identified Cx Nom (Bld) No growth in 5 days. [facility] CBC W/Diff, Automatedon 10- Absolute Lymph 1.23 X10 3/uL Normal 0.83-4.51 [facility] Comment on above: Performed By: #### L 100.0100, L500.2500, L504.2610 ####[facility] [address] [place], [address] Absolute Neut 2.4 X10 3/uL Normal 2.0-7.7 [facility] Comment on above: Performed By: #### L 100.0100, L500.2500, L504.2610 ####[facility] [address] [place], [address] Basophils/100 WBC (Bld) 1.7 % High 0-1 [facility] Comment on above: Performed By: #### L 100.0100, L500.2500, L504.2610 ####[facility] [address] [place], [address] Eosinophils/100 WBC (Bld) 16.9 % High 0-5 [facility] Comment on above: Performed By: #### L 100.0100, L500.2500, L504.2610 ####[facility] [address] [place], [address] Erythrocyte distribution width (RBC) [Ratio] 17.9 % High 11.6-14.6 [facility] Comment on above: Performed By: #### L 100.0100, L500.2500, L504.2610 ####[facility] [address] [place], [address] Hematocrit (Bld) [Volume fraction] 38.9 % Low 40-54 [facility] Comment on above: Performed By: #### L 100.0100, L500.2500, L504.2610 ####[facility] [address] [place], [address] Hemoglobin (Bld) [Mass/Vol] 12.5 g/dL Low 13.0-16.5 [facility] Comment on above: Performed By: #### L 100.0100, L500.2500, L504.2610 ####[facility] [address] [place], [address] IG% 0.400 Normal 0.0-0.9 [facility] Comment on above: Result Comment: IG% - Immature Granulocytes (promyelocytes, myelocytes andmetamyelocytes) > 1% indicates that a LEFT SHIFT is Present. Performed By: #### L 100.0100, L500.2500, L504.2610 ####[facility] [address] [place], [address] Lymphocytes/100 WBC (Bld) 23.1 % Normal 19-41 [facility] Comment on above: Performed By: #### L 100.0100, L500.2500, L504.2610 ####[facility] [address] [place], [address] MCH (RBC) [Entitic mass] 27.8 pg Normal 27.0-32.0 [facility] Comment on above: Performed By: #### L 100.0100, L500.2500, L504.2610 ####[facility] [address] [place], [address] MCHC (RBC) [Mass/Vol] 32.1 g/dL Normal 32-36 [facility] Comment on above: Performed By: #### L 100.0100, L500.2500, L504.2610 ####[facility] [address] [place], [address] MCV (RBC) [Entitic vol] 86.4 fL Normal 80-94 [facility] Comment on above: Performed By: #### L 100.0100, L500.2500, L504.2610 ####[facility] [address] [place], [address] Monocytes/100 WBC (Bld) 12.2 % High 0-10 [facility] Comment on above: Performed By: #### L 100.0100, L500.2500, L504.2610 ####[facility] [address] [place], [address] Neutrophils/100 WBC (Bld) 45.7 % Low 47-70 [facility] Comment on above: Performed By: #### L 100.0100, L500.2500, L504.2610 ####[facility] [address] [place], [address] Nucleated RBC (Bld) [#/Vol] 0 10*3/uL Normal 0-5 [facility] Comment on above: Performed By: #### L 100.0100, L500.2500, L504.2610 ####[facility] [address] [place], [address] Platelet mean volume (Bld) [Entitic vol] 8.5 fL Normal 6.2-12.0 [facility] Comment on above: Performed By: #### L 100.0100, L500.2500, L504.2610 ####[facility] [address] [place], [address] Platelets (Bld) [#/Vol] 154 10*3/uL Normal 150-450 [facility] Comment on above: Performed By: #### L 100.0100, L500.2500, L504.2610 ####[facility] [address] [place], [address] RBC (Bld) [#/Vol] 4.50 10*6/uL Low 4.6-6.2 [facility] Comment on above: Performed By: #### L 100.0100, L500.2500, L504.2610 ####[facility] [address] [place], [address] RDW SD 56.0 fl High 35.1-43.9 [facility] Comment on above: Performed By: #### L 100.0100, L500.2500, L504.2610 ####[facility] [address] [place], [address] WBC (Bld) [#/Vol] 5.3 10*3/uL Normal 4.4-11.0 [facility] Comment on above: Performed By: #### L 100.0100, L500.2500, L504.2610 ####[facility] [address] [place], [address] HIVon 02-24-2025 HIV Non-Reactive Normal Nonreactive [facility] Comment on above: Result Comment: Non- ReactiveReactiveRepeatedly reactive samples must be confirmed according [facility] recommended confirmatory algorithms. The subresults foreither HIVAG or AHIV can be used as an aid in the selectionof the confirmation algorithm for reactive samples.Send out specimens with Reactive results to [facility] forconfirmation.Order the HIV antibody detection and differentiation:#[id number] Performed By: #### L 3890.6006 ####[facility] [address] [place], [place], [address] Ketones Test strip Ql (U)Ord ered By: Clement Lewis on 02-24-2025 Ketones Ql (U) 5 mg/dl High Negative [facility] LDHon 02-24-2025 LDH 318 U/L High 87-241 [facility] Comment on above: Order Comment: 1 Performed By: #### L 100.0100, L500.2500, L504.2610 ####[facility] [address] [place], [address] Microscopic analysis of urin e for red blood cells (RBC)Ordered By: Clement Lewis on 02-24-2025 Microscopic analysis of urine for red blood cells (RBC) 0-5 SEEN /hpf 0-5 [facility] Mucus LM Ql (Urine sed)Order ed By: Clement Lewis on 02-24-2025 Mucus Ql (Urine sed) 0 SEEN /hpf [facility] Nitrite Test strip Ql (U)Ord ered By: Clement Lewis on 02-24-2025 Nitrite Ql (U) Negative Negative [facility] No Panel InformationOrdered By: Clement Lewis on 02-24-2025 HIV (1&2) Antibody Non-Reactive Nonreactive [facility] Comment on above: Non-ReactiveReactive Repeatedly reactive samples must be confirmed according to CDC recommended confirmatory algorithms. The subresults for either HIVAG or AHIV can be used as an aid in the selection of the confirmation algorithm for reactive samples.Send out specimens with Reactive results to [facility] for confirmation.Order the HIV antibody detection and differentiation: #[id number] Oncology Visit Reporton 02-11 Oncology Visit Report Normal [facility] Protein Test strip Ql (U)Ord ered By: Clement Lewis on 02-24-2025 Protein Ql (U) 30 mg/dl High Negative [facility] Squamous epithelial cells de tection in urine sediment by light microscopyOrdered By: Clement Lewis on 02-24-2025 Epithelial cells.squamous LM Ql (Urine sed) 0 SEEN /hpf 0-5 [facility] Urinalysis, Completeon 02-24 RBC 0-5 SEEN Normal 0-5 [facility] Comment on above: Order Comment: PABLITO BYERSOR TO SPECIFY Performed By: #### L 400.0001 ####[facility] [address] [facility] [place], [address] WBC 0-5 SEEN Normal 0-5 [facility] Comment on above: Order Comment: PABLITO BYERSOR TO SPECIFY Performed By: #### L 400.0001 ####[facility] [address] [place], [address] BACTERIA 0 SEEN Normal None Seen [facility] Comment on above: Order Comment: PABLITO CTOR TO SPECIFY Performed By: #### L 400.0001 ####[facility] [address] [facility] [place], [address] EPI,SQUAMOUS 0 SEEN Normal 0-5 [facility] Comment on above: Order Comment: PABLITO CTOR TO SPECIFY Performed By: #### L 400.0001 ####[facility] [address] [place], [address] Mucus Ql (Urine sed) 0 SEEN Normal [facility] Comment on above: Order Comment: COLLE CTOR TO SPECIFY Performed By: #### L 400.0001 ####[facility] [address] [place], [address] Urine clarityOrdered By: Sekou Lewis on 02-24-2025 Clarity (U) Clear Clear [facility] Urine color determinationOrd ered By: Clement Lewis on 02-24-2025 Color (U) Yellow Yellow [facility] Urine cultureOrdered By: Sekou Lewis on 02-24-2025 Bacteria identified Cx Nom (U) Culture exhibits no growth. [facility] Urine glucose detectionOrder ed By: Clement Lewis on 02-24-2025 Glucose Ql (U) Normal mg/dl Normal [facility] Urine leukocyte esterase det ection by dipstickOrdered By: Clement Lewis on 02-24-2025 Leukocyte esterase Test strip Ql (U) 25 /ul High Negative [facility] Urine pHOrdered By: Clement murillo on 02-24-2025 pH (U) 5.0 [pH] 5.0 - 8.0 [facility] Urine sediment bacteria coun t by microscopy (number/high power field)Ordered By: Clement Lewis on 02-24-2025 Bacteria LM.HPF (Urine sed) [#/Area] 0 /[HPF] None Seen [facility] Urine specific gravity measu rementOrdered By: Clement Lewis on 02-24-2025 Specific gravity (U) [Rel density] 1.025 1.002-1.030 [facility] Urine urobilinogen measureme ntOrdered By: Clement Lewis on 02-24-2025 Urobilinogen Ql (U) 1 mg/dl High Normal [facility] White blood cell countOrdere d By: Clement Lewis on 02-24-2025 White blood cell count 0-5 SEEN /hpf 0-5 [facility] Culture, Blood (WB)on 2024 CUB No growth in 5 days. Normal [facility] Comment on above: Performed By: #### L 3100.6100, L3000.0375, M200.1000, L509.8002 ####[facility] [address] [place], [place], [address] L3410.9994on 02-19-2025 [facility] Misc. 2 COMMENT Normal . [facility] Comment on above: Order Comment: [id number] 9CYTOGENETICS-SOD HEP PED-RT Result Comment: Test Ordered: [id number] Chromosome, Leukemia/LymphomaSpecimen Type Comment: LUI Reference Range: .BLOODCells Counted 0 LUI Reference Range: .Cells Analyzed 0 LUI Reference Range: .Cells Karyotyped 0 LUI Reference Range: .GTG Band Resolution Achieved N/A LUI Reference Range: .Cytogenetic Result Comment: LUI Reference Range: .NO MITOTIC ACTIVITYInterpretation Comment: Reference Range: .NO RESULT . Cytogenetic analysis of GTG banded metaphases fromunstimulated cultures revealed no mitotic activity. Thesample submitted appeared to be blood. Generally, 5% blastsin the peripheral circulation are necessary to obtaincytogenetic results. Bone marrow is recommended for theanalysis of disorders with blasts below that percentage. Interphase FISH analysis using indication specifictargeted probes or a whole genome SNP microarray (test [id number]) may be considered. [employer] multi-genegenomic next generation sequencing panel (test code [id number])may also be considered. Testing can be performed on aresidual sample, if available.Director Review: Comment: Reference Range: .HOME BOUDREAUX, PhD, [facility], Professional Component performedby, [facility], [facility], [facility]#[id number], [address] [place] [address],Psychologist Experimental Yris Flower MD.Performed at: [facility] [id number] [facility], [facility], [place] [id number] Director: Dax Kumari [facility], Phone: [phone] at: [facility] LabcoSaint [facility] HospitalWlef[address] [place], [place] [id number] Director: Rolando Vega PhD, Phone: [phone] Performed By: #### L 3410.9992, L3410.9994, L3410.9996 ####[facility] [address] [place], [address] EBV-VCA IgGon 02-18-2025 EB Ab VCA, IgG > 600.0 High 0.0-17.9 [facility] Comment on above: Result Comment: Nega tive <18.0 Equivocal 18.0 - 21.9 Positive >21.9Performed at: [facility] [address] [id number] Director: Rolando Vega PhD, Phone: [phone] Performed By: #### L 3100.6100, L3000.0375, M200.1000, L509.8002 ####[facility] [address] [place], [address] Hepatitis Panel Acuteon COMMENT Comment Normal . [facility] Comment on above: Result Comment: Not infected with HCV unless early or acute infection issuspected (which may be delayed in an immunocompromisedindividual), or other evidence exists to indicate HCVinfection. Performed By: #### L 3100.6100, L3000.0375, M200.1000, L509.8002 ####[facility] [address] [place], [address] HEP B CORE,IgM Negative Normal Negative [facility] Comment on above: Performed By: #### L 3100.6100, L3000.0375, M200.1000, L509.8002 ####[facility] [address] [place], [address] HEP B SURF AG Negative Normal Negative [facility] Comment on above: Performed By: #### L 3100.6100, L3000.0375, M200.1000, L509.8002 ####[facility] [address] [place], [address] HEP C VIRUS AB Non-Reactive Normal Non Reactive [facility] Comment on above: Performed By: #### L 3100.6100, L3000.0375, M200.1000, L509.8002 ####[facility] [address] [place], [address] HEPATITIS A-IgM Negative Normal Negative [facility] Comment on above: Result Comment: A ne gative anti-HAV IgM result suggests no recent orcurrent HAV infection. Performed By: #### L 3100.6100, L3000.0375, M200.1000, L509.8002 ####[facility] [address] [place], [address] Urine Cultureon 02-17-2025 [facility] Culture exhibits no growth. Normal [facility] Comment on above: Performed By: #### M 100.2200 ####[facility] [address] [place], [address] Absolute lymphocyte countOrd ered By: Billie Del Rio on 02-16-2025 Lymphocytes Auto (Unsp spec) [#/Vol] 0.42 10*3/uL Low 0.83-4.51 [facility] Absolute neutrophil countOrd ered By: Billie Del Rio on 02-16-2025 Neutrophils (Bld) [#/Vol] 2.7 10*3/uL 2.0-7.7 [facility] Anion gap in Serum or Plasma Ordered By: Billie Del Rio on 02-16-2025 Anion gap [Moles/Vol] 8 mmol/L 5-15 [facility] Automated lymphocyte count a s percentage of total leukocytesOrdered By: Billie Del Rio on 02-16-2025 Lymphocytes/100 WBC Auto (Unsp spec) 9.7 % Low 19-41 [facility] BUN/creatinine ratioOrdered By: Billie Del Rio on 02-16-2025 Urea nitrogen/Creatinine [Mass ratio] 11.3 mg/mg 10-20 [facility] Basophil percentageOrdered B y: Billie Del Rio on 02-16-2025 Basophils/100 WBC (Bld) 0.9 % 0-1 [facility] Bilirubin Test strip Ql (U)O rdered By: Billie Del Rio on 02-16-2025 Bilirubin Ql (U) Negative Negative [facility] Bilirubin, totalOrdered By: Billie Del Rio on 02-16-2025 Bilirubin [Mass/Vol] 0.64 mg/dL 0.00-1.30 [facility] Blood cultureOrdered By: Marita Del Rio on 02-16-2025 Bacteria identified Cx Nom (Bld) No growth in 5 days. [facility] Bacteria identified Cx Nom (Bld) No growth in 5 days. [facility] CBC W/Diff, Automatedon 10- Absolute Lymph 0.42 X10 3/uL Low 0.83-4.51 [facility] Comment on above: Performed By: #### L 100.0100, L400.0001, L504.2610, L500.4050 ####[facility] [address] [place], [address] Absolute Neut 2.7 X10 3/uL Normal 2.0-7.7 [facility] Comment on above: Performed By: #### L 100.0100, L400.0001, L504.2610, L500.4050 ####[facility] [address] [place], [address] Basophils/100 WBC (Bld) 0.9 % Normal 0-1 [facility] Comment on above: Performed By: #### L 100.0100, L400.0001, L504.2610, L500.4050 ####[facility] [address] [place], [address] Eosinophils/100 WBC (Bld) 15.2 % High 0-5 [facility] Comment on above: Performed By: #### L 100.0100, L400.0001, L504.2610, L500.4050 ####[facility] [address] [place], [address] Erythrocyte distribution width (RBC) [Ratio] 17.4 % High 11.6-14.6 [facility] Comment on above: Performed By: #### L 100.0100, L400.0001, L504.2610, L500.4050 ####[facility] [address] [place], [address] Hematocrit (Bld) [Volume fraction] 38.8 % Low 40-54 [facility] Comment on above: Performed By: #### L 100.0100, L400.0001, L504.2610, L500.4050 ####[facility] [address] [place], [address] Hemoglobin (Bld) [Mass/Vol] 12.4 g/dL Low 13.0-16.5 [facility] Comment on above: Performed By: #### L 100.0100, L400.0001, L504.2610, L500.4050 ####[facility] [address] [place], [address] IG% 0.700 Normal 0.0-0.9 [facility] Comment on above: Result Comment: IG% - Immature Granulocytes (promyelocytes, myelocytes andmetamyelocytes) > 1% indicates that a LEFT SHIFT is Present. Performed By: #### L 100.0100, L400.0001, L504.2610, L500.4050 ####[facility] [address] [place], [address] Lymphocytes/100 WBC (Bld) 9.7 % Low 19-41 [facility] Comment on above: Performed By: #### L 100.0100, L400.0001, L504.2610, L500.4050 ####[facility] [address] [place], [address] MCH (RBC) [Entitic mass] 27.9 pg Normal 27.0-32.0 [facility] Comment on above: Performed By: #### L 100.0100, L400.0001, L504.2610, L500.4050 ####[facility] [address] [place], [address] MCHC (RBC) [Mass/Vol] 32.0 g/dL Normal 32-36 [facility] Comment on above: Performed By: #### L 100.0100, L400.0001, L504.2610, L500.4050 ####[facility] [address] [place], [address] MCV (RBC) [Entitic vol] 87.2 fL Normal 80-94 [facility] Comment on above: Performed By: #### L 100.0100, L400.0001, L504.2610, L500.4050 ####[facility] [address] [place], [address] Monocytes/100 WBC (Bld) 11.5 % High 0-10 [facility] Comment on above: Performed By: #### L 100.0100, L400.0001, L504.2610, L500.4050 ####[facility] [address] [place], [address] Neutrophils/100 WBC (Bld) 62.0 % Normal 47-70 [facility] Comment on above: Performed By: #### L 100.0100, L400.0001, L504.2610, L500.4050 ####[facility] [address] [place], [address] Nucleated RBC (Bld) [#/Vol] 0 10*3/uL Normal 0-5 [facility] Comment on above: Performed By: #### L 100.0100, L400.0001, L504.2610, L500.4050 ####[facility] [address] [place], [address] Platelet mean volume (Bld) [Entitic vol] 9.2 fL Normal 6.2-12.0 [facility] Comment on above: Performed By: #### L 100.0100, L400.0001, L504.2610, L500.4050 ####[facility] [address] [place], [address] Platelets (Bld) [#/Vol] 149 10*3/uL Low 150-450 [facility] Comment on above: Performed By: #### L 100.0100, L400.0001, L504.2610, L500.4050 ####[facility] [address] [place], [address] RBC (Bld) [#/Vol] 4.45 10*6/uL Low 4.6-6.2 [facility] Comment on above: Performed By: #### L 100.0100, L400.0001, L504.2610, L500.4050 ####[facility] [address] [place], [address] RDW SD 54.0 fl High 35.1-43.9 [facility] Comment on above: Performed By: #### L 100.0100, L400.0001, L504.2610, L500.4050 ####[facility] [address] [place], [address] WBC (Bld) [#/Vol] 4.4 10*3/uL Normal 4.4-11.0 [facility] Comment on above: Performed By: #### L 100.0100, L400.0001, L504.2610, L500.4050 ####[facility] [address] [place], [address] Carbon dioxide, total [Moles /volume] in Central venous bloodOrdered By: Billie Del Rio on 02-16-2025 CO2 [Moles/Vol] 25.8 mmol/L 21.0-32.0 [facility] Chest PA and Lateralon 02-16 Chest PA and Lateral Normal [facility] Chloride assayOrdered By: Biju Del Rio on 02-16-2025 Chloride [Moles/Vol] 106 mmol/L 98-108 [facility] Comprehensive Metabolic Prof ilon 02-16-2025 Albumin [Mass/Vol] 3.7 g/dL Normal 3.4-4.8 [facility] Comment on above: Performed By: #### L 100.0100, L400.0001, L504.2610, L500.4050 ####[facility] [address] [place], [address] Albumin/Globulin [Mass ratio] 2.1 {ratio} Normal 0.9-2.4 [facility] Comment on above: Performed By: #### L 100.0100, L400.0001, L504.2610, L500.4050 ####[facility] [address] [place], [address] ALK PHOS 57 U/L Normal 40-129 [facility] Comment on above: Performed By: #### L 100.0100, L400.0001, L504.2610, L500.4050 ####[facility] [address] [place], [address] ALT [Catalytic activity/Vol] 13 U/L Normal <=46 [facility] Comment on above: Performed By: #### L 100.0100, L400.0001, L504.2610, L500.4050 ####[facility] [address] [place], [address] AST [Catalytic activity/Vol] 22 U/L Normal <=37 [facility] Comment on above: Performed By: #### L 100.0100, L400.0001, L504.2610, L500.4050 ####[facility] [address] [place], [address] Bilirubin [Mass/Vol] 0.64 mg/dL Normal 0.00-1.30 [facility] Comment on above: Performed By: #### L 100.0100, L400.0001, L504.2610, L500.4050 ####[facility] [address] [place], [address] BUN/CRE 11.3 RATIO Normal 10-20 [facility] Comment on above: Performed By: #### L 100.0100, L400.0001, L504.2610, L500.4050 ####[facility] [address] [place], [address] Calcium [Mass/Vol] 9.0 mg/dL Normal 7.6-11.0 [facility] Comment on above: Performed By: #### L 100.0100, L400.0001, L504.2610, L500.4050 ####[facility] [address] [place], [address] Chloride [Moles/Vol] 106 mmol/L Normal 98-108 [facility] Comment on above: Performed By: #### L 100.0100, L400.0001, L504.2610, L500.4050 ####[facility] [address] [place], [address] CO2 [Moles/Vol] 25.8 mmol/L Normal 21.0-32.0 [facility] Comment on above: Performed By: #### L 100.0100, L400.0001, L504.2610, L500.4050 ####[facility] [address] [place], [address] Creatinine [Mass/Vol] 1.12 mg/dL Normal 0.70-1.20 [facility] Comment on above: Performed By: #### L 100.0100, L400.0001, L504.2610, L500.4050 ####[facility] [address] [place], [address] ECRCL 49.43 ml/min Low 50-250 [facility] Comment on above: Performed By: #### L 100.0100, L400.0001, L504.2610, L500.4050 ####[facility] [address] [place], [address] GAP 8 Normal 5-15 [facility] Comment on above: Performed By: #### L 100.0100, L400.0001, L504.2610, L500.4050 ####[facility] [address] [place], [address] GFR/1.73 sq M.predicted among non-blacks MDRD (S/P/Bld) [Vol rate/Area] 68 mL/min/{1.73_m2} Normal >60 [facility] Comment on above: Result Comment: mL/m in/1.73m2 CKD-EPI Creatinine Equation (2020) Performed By: #### L 100.0100, L400.0001, L504.2610, L500.4050 ####[facility] [address] [place], [address] Globulin (S) [Mass/Vol] 1.8 g/dL Low 2.2-4.2 [facility] Comment on above: Performed By: #### L 100.0100, L400.0001, L504.2610, L500.4050 ####[facility] [address] [place], [address] Glucose [Mass/Vol] 123 mg/dL High 70-99 [facility] Comment on above: Performed By: #### L 100.0100, L400.0001, L504.2610, L500.4050 ####[facility] [address] [place], [address] Potassium [Moles/Vol] 4.3 mmol/L Normal 3.3-5.1 [facility] Comment on above: Performed By: #### L 100.0100, L400.0001, L504.2610, L500.4050 ####[facility] [address] [place], [address] Sodium [Moles/Vol] 140 mmol/L Normal 133-145 [facility] Comment on above: Performed By: #### L 100.0100, L400.0001, L504.2610, L500.4050 ####[facility] [address] [place], [address] T PROT 5.4 g/dL Low 5.9-8.4 [facility] Comment on above: Performed By: #### L 100.0100, L400.0001, L504.2610, L500.4050 ####[facility] [address] [place], [address] Urea nitrogen [Mass/Vol] 13 mg/dL Normal 4-19 [facility] Comment on above: Performed By: #### L 100.0100, L400.0001, L504.2610, L500.4050 ####[facility] [address] [place], [address] Eosinophil percentageOrdered By: Billie Del Rio on 02-16-2025 Eosinophils/100 WBC (Bld) 15.2 % High 0-5 [facility] Erythrocyte distribution wid th ratioOrdered By: Billie Del Rio on 02-16-2025 Erythrocyte distribution width (RBC) [Ratio] 17.4 % High 11.6-14.6 [facility] Erythrocyte distribution wid th standard deviationOrdered By: Billie Del Rio on 02-16-2025 Erythrocyte distribution width (RBC) [Ratio] 54.0 fl High 35.1-43.9 [facility] Glomerular filtration rate ( GFR) estimation/1.73 sq m using serum, plasma, or whole bOrdered By: Billie Del Rio on 02-16-2025 GFR/1.73 sq M.predicted among non-blacks MDRD (S/P/Bld) [Vol rate/Area] 68 mL/min/{1.73_m2} >60 [facility] Comment on above: mL/min/1.73m2 CKD-EP I Creatinine Equation (2020) Hematocrit Auto (Bld) [Volum e fraction]Ordered By: Billie Del Rio on 02-16-2025 Hematocrit (Bld) [Volume fraction] 38.8 % Low 40-54 [facility] Hemoglobin measurementOrdere d By: Billie Del Rio on 02-16-2025 Hemoglobin (Bld) [Mass/Vol] 12.4 g/dL Low 13.0-16.5 [facility] Immature granulocytes/100 WB C Auto (Bld)Ordered By: Billie Del Rio on 02-16-2025 Immature granulocytes/100 WBC (Bld) 0.700 % 0.0-0.9 [facility] Comment on above: IG% - Immature Granu locytes (promyelocytes, myelocytes and metamyelocytes) > 1% indicates that a LEFT SHIFT is Present. Ketones Test strip Ql (U)Ord ered By: Billie Del Rio on 02-16-2025 Ketones Ql (U) Negative Negative [facility] LDHon 02-16-2025 LDH 223 U/L Normal 87-241 [facility] Comment on above: Order Comment: 1 Performed By: #### L 100.0100, L400.0001, L504.2610, L500.4050 ####[facility] [address] [place], [address] Laboratory - Chemistry and C hemistry - challengeOrdered By: Billie Del Rio on 02-16-2025 AST [Catalytic activity/Vol] 22 U/L <38 [facility] Lactate dehydrogenase (LDH) measurementOrdered By: Billie Del Rio on 02-16-2025 LDH [Catalytic activity/Vol] 223 U/L 87-241 [facility] MCV (mean corpuscular volume ) determinationOrdered By: Billie Del Rio on 02-16-2025 MCV (RBC) [Entitic vol] 87.2 fL 80-94 [facility] Mean corpuscular hemoglobin (MCH) determinationOrdered By: Billie Del Rio on 02-16-2025 MCH (RBC) [Entitic mass] 27.9 pg 27.0-32.0 [facility] Mean corpuscular hemoglobin concentration (MCHC) determinationOrdered By: Billie Del Rio on 02-16-2025 MCHC (RBC) [Mass/Vol] 32.0 g/dL 32-36 [facility] Mean platelet volume determi nationOrdered By: Billie Del Rio on 02-16-2025 Platelet mean volume (Bld) [Entitic vol] 9.2 fL 6.2-12.0 [facility] Microscopic analysis of urin e for red blood cells (RBC)Ordered By: Billie Del Rio on 02-16-2025 Microscopic analysis of urine for red blood cells (RBC) 0 SEEN /hpf 0-5 [facility] Monocyte percentageOrdered B y: Billie Del Rio on 02-16-2025 Monocytes/100 WBC (Bld) 11.5 % High 0-10 [facility] Mucus LM Ql (Urine sed)Order ed By: Billie Del Rio on 02-16-2025 Mucus Ql (Urine sed) 0 SEEN /hpf [facility] Neutrophil percentageOrdered By: Billie Del Rio on 02-16-2025 Neutrophils/100 WBC (Bld) 62.0 % 47-70 [facility] Nitrite Test strip Ql (U)Ord ered By: Billie Del Rio on 02-16-2025 Nitrite Ql (U) Negative Negative [facility] No Panel InformationOrdered By: Billie Del Rio on 02-16-2025 Hepatitis C Antibody Comment Comment . [facility] Comment on above: Not infected with HC V unless early or acute infection issuspected (which may be delayed in an immunocompromisedindividual), or other evidence exists to indicate HCVinfection. Nucleated red blood cell per centageOrdered By: Billie Del Rio on 02-16-2025 Nucleated RBC/100 WBC (Bld) [Ratio] 0 % 0-5 [facility] Oncology Visit Reporton 10- Oncology Visit Report Normal [facility] Platelet countOrdered By: Biju Del Rio on 02-16-2025 Platelets (Bld) [#/Vol] 149 10*3/uL Low 150-450 [facility] Potassium measurement (mass/ volume)Ordered By: Billie Del Rio on 02-16-2025 Potassium (Unsp spec) [Mass/Vol] 4.3 mmol/L 3.3-5.1 [facility] Protein Test strip Ql (U)Ord ered By: Billie Del Rio on 02-16-2025 Protein Ql (U) 30 mg/dl High Negative [facility] RBC Auto (Bld) [#/Vol]Ordere d By: Billie Del Rio on 02-16-2025 RBC (Bld) [#/Vol] 4.45 10*6/uL Low 4.6-6.2 [facility] Serum creatinine measurement (mass/volume)Ordered By: Billie Del Rio on 02-16-2025 Creatinine [Mass/Vol] 1.12 mg/dL 0.70-1.20 [facility] Serum globulin measurementOr dered By: Billie Del Rio on 02-16-2025 Globulin (S) [Mass/Vol] 1.8 g/dL Low 2.2-4.2 [facility] Serum glucose measurement (m ass/volume)Ordered By: Billie Del Rio on 02-16-2025 Glucose [Mass/Vol] 123 mg/dL High 70-99 [facility] Serum or plasma alanine brumfield otransferase (ALT) measurementOrdered By: Billie Del Rio on 02-16-2025 ALT [Catalytic activity/Vol] 13 U/L <47 [facility] Serum or plasma albumin lukas urement (mass/volume)Ordered By: Billie Del Rio on 02-16-2025 Albumin [Mass/Vol] 3.7 g/dL 3.4-4.8 [facility] Serum or plasma albumin/glob ulin mass ratioOrdered By: Billie Del Rio on 02-16-2025 Albumin/Globulin [Mass ratio] 2.1 {ratio} 0.9-2.4 [facility] Serum or plasma alkaline simba sphatase measurementOrdered By: Billie Del Rio on 02-16-2025 ALP [Catalytic activity/Vol] 57 U/L 40-129 [facility] Serum or plasma calcium lukas urement (mass/volume)Ordered By: Billie Del Rio on 02-16-2025 Calcium [Mass/Vol] 9.0 mg/dL 7.6-11.0 [facility] Serum or plasma hepatitis B virus surface antigen detection by immunoassayOrdered By: Billie Del Rio on 02-16-2025 HBV surface Ag IA Ql Negative Negative [facility] Serum or plasma urea nitroge n measurement (mass/volume)Ordered By: Billie Del Rio on 02-16-2025 Urea nitrogen [Mass/Vol] 13 mg/dL 4-19 [facility] Sodium levelOrdered By: Billie Del Rio on 02-16-2025 Sodium [Moles/Vol] 140 mmol/L 133-145 [facility] Squamous epithelial cells de tection in urine sediment by light microscopyOrdered By: Billie Del Rio on 02-16-2025 Epithelial cells.squamous LM Ql (Urine sed) 0 SEEN /hpf 0-5 [facility] Syphilis Antibodieson 2024 Syphilis Abs Non-Reactive Normal Nonreactive [facility] Comment on above: Performed By: #### L 3100.6100, L3000.0375, M200.1000, L509.8002 ####[facility] [address] [place], [address] Total proteinOrdered By: Marita Del Rio on 02-16-2025 Protein [Mass/Vol] 5.4 g/dL Low 5.9-8.4 [facility] Urinalysis, Completeon 02-16 BACTERIA RARE Normal None Seen [facility] Comment on above: Order Comment: PABLITO CTOR TO SPECIFY Performed By: #### L 100.0100, L400.0001, L504.2610, L500.4050 ####[facility] [address] [place], [address] WBC 0-5 SEEN Normal 0-5 [facility] Comment on above: Order Comment: PABLITO CTOR TO SPECIFY Performed By: #### L 100.0100, L400.0001, L504.2610, L500.4050 ####[facility] [address] [place], [address] EPI,SQUAMOUS 0 SEEN Normal 0-5 [facility] Comment on above: Order Comment: COLLE CTOR TO SPECIFY Performed By: #### L 100.0100, L400.0001, L504.2610, L500.4050 ####[facility] [address] [place], [address] Mucus Ql (Urine sed) 0 SEEN Normal [facility] Comment on above: Order Comment: COLLE CTOR TO SPECIFY Performed By: #### L 100.0100, L400.0001, L504.2610, L500.4050 ####[facility] [address] [place], [address] RBC 0 SEEN Normal 0-5 [facility] Comment on above: Order Comment: COLLE CTOR TO SPECIFY Performed By: #### L 100.0100, L400.0001, L504.2610, L500.4050 ####[facility] [address] [place], [address] Urine clarityOrdered By: Marita Del Rio on 02-16-2025 Clarity (U) Clear Clear [facility] Urine color determinationOrd ered By: Billie Del Rio on 02-16-2025 Color (U) Yellow Yellow [facility] Urine cultureOrdered By: Marita Del Rio on 02-16-2025 Bacteria identified Cx Nom (U) Culture exhibits no growth. [facility] Urine glucose detectionOrder ed By: Billie Del Rio on 02-16-2025 Glucose Ql (U) Normal mg/dl Normal [facility] Urine leukocyte esterase det ection by dipstickOrdered By: Billie Del Rio on 02-16-2025 Leukocyte esterase Test strip Ql (U) 25 /ul High Negative [facility] Urine pHOrdered By: Billie brown on 02-16-2025 pH (U) 6.0 [pH] 5.0 - 8.0 [facility] Urine sediment bacteria coun t by microscopy (number/high power field)Ordered By: Billie Del Rio on 02-16-2025 Bacteria LM.HPF (Urine sed) [#/Area] RARE /hpf None Seen [facility] Urine specific gravity measu rementOrdered By: Billie Del Rio on 02-16-2025 Specific gravity (U) [Rel density] 1.020 1.002-1.030 [facility] Urine urobilinogen measureme ntOrdered By: Billie Del Rio on 02-16-2025 Urobilinogen Ql (U) 1 mg/dl High Normal [facility] White blood cell (WBC) count Ordered By: Billie Del Rio on 02-16-2025 WBC (Bld) [#/Vol] 4.4 10*3/uL 4.4-11.0 [facility] White blood cell countOrdere d By: Blilie Andradeach on 02-16-2025 White blood cell count 0-5 SEEN /hpf 0-5 [facility] L3410.9996on 02-13-2025 [facility] Misc. 3 COMMENT Normal . [facility] Comment on above: Order Comment: [id number] 0CLL FISH-SOD HEP - RT Result Comment: Test Ordered: [id number] CLL FISH PanelSpecimen Type Comment: LUI Reference Range: .BLOODCells Counted Comment: LUI Reference Range: .200/PROBECells Analyzed Comment: LUI Reference Range: .200/PROBEFISH Result Comment: LUI Reference Range: .NORMAL CLL PANELInterpretation Comment: LUI Reference Range: . The CLL interphase fluorescence in situ hybridization(FISH) panel analysis was normal. There were no cells withCCND1-IGH fusion. No extra signals or deletions of JOEL,chromosome 12, 13q, or TP53 were observed. SPECIFIC FISH RESULTS: CCND1/IGH: NORMAL . nuc afua 11q13(TLEA1d0),14q32(IGHx2)[200] JOEL: NORMAL nuc afua 11q22.3(ATMx2)[200]. 12cen: NORMAL . nuc afua 12cen(I91J3i2)[200]. 13q: NORMAL . nuc afua 13q14.3(DLEUx2),13q34(XWIW8q1)[200]. TP53: NORMAL . nuc afua 17p13.1(TP53x2)[200] This analysis is limited to abnormalities detectableby the specific probes included in the study. The TargetGeneFISH results should be interpreted within the context of afull cytogenetic analysis and hematologic evaluation. TheDNA probe vendor for this study was [employer] ([employer]). REFERENCES:. Malek,(2013) Adv Exp Med Biol 792:193-214.PMID#[id number] . Marcela et al.,(2011) Clin Lab Med31:649-658.PMID#[id number] This test was developed and its performacecharacteristics determined by [employer] ([employer]). It has not been cleared orapproved by the U.S. Food and Drug Administration. Technical Component-Processing performed at [address], [place] [id number], [facility] [id number]. Psychologist Experimental, Dax Kumari M.D., Ph.D. Technical analysis performed at [employer]. [address] [place] [address]. CLIA# [id number]. Psychologist Experimental Dr. Megan Veloz M.D.,Ph.D. Technical Component-Partial chromosome analysisperformed at [id number], [facility] [address] [facility] [address], [id number]. Psychologist Experimental, Dax Kumari M.D., Ph.D.Director Review: Comment: LUI Reference Range: .TIFFANIE MAHAJAN, PhD, [facility], Professional Component performedby, [id number], youwho [facility],CLIA [id number], [address] [place] [address].Psychologist Experimental, Dax Kumari MD,PhDPerformed at: [facility] [id number] [place], [place] [id number] Director: Dax Kumari [facility], Phone: [phone] at: [address] [id number] Director: Rolando Vega PhD, Phone: [phone] Performed By: #### L 2862.9263, U0212.3798, L4255.8306 ####[facility] [address] [place], [address] NOE + Protein Elect, Serumon 02-12-2025 Albumin [Mass/Vol] 3.8 g/dL Normal 2.9-4.4 [facility] Comment on above: Order Comment: N Performed By: #### L 500.4050, L3100.3425, L504.2610, L3130.0010, L100.0100 ####[facility] [address] [place], [address] Albumin/Globulin [Mass ratio] 1.9 {ratio} High 0.7-1.7 [facility] Comment on above: Order Comment: N Performed By: #### L 500.4050, L3100.3425, L504.2610, L3130.0010, L100.0100 ####[facility] [address] [place], [address] WGAXK-6-CTPG 0.3 g/dL Normal 0.0-0.4 [facility] Comment on above: Order Comment: N Performed By: #### L 500.4050, L3100.3425, L504.2610, L3130.0010, L100.0100 ####[facility] [address] [place], [address] IKQYY-3-FALJ 0.6 g/dL Normal 0.4-1.0 [facility] Comment on above: Order Comment: N Performed By: #### L 500.4050, L3100.3425, L504.2610, L3130.0010, L100.0100 ####[facility] [address] [place], [address] BETA GLOBULIN 0.9 g/dL Normal 0.7-1.3 [facility] Comment on above: Order Comment: N Performed By: #### L 500.4050, L3100.3425, L504.2610, L3130.0010, L100.0100 ####[facility] [address] [place], [address] GAMMA GLOBULIN 0.3 g/dL Low 0.4-1.8 [facility] Comment on above: Order Comment: N Performed By: #### L 500.4050, L3100.3425, L504.2610, L3130.0010, L100.0100 ####[facility] [address] [place], [address] Globulin (S) [Mass/Vol] 2.1 g/dL Abnormal 2.2-3.9 [facility] Comment on above: Order Comment: N Performed By: #### L 500.4050, L3100.3425, L504.2610, L3130.0010, L100.0100 ####[facility] [address] [place], [address] NOE RESULT,S Comment: Normal . [facility] Comment on above: Order Comment: N Result Comment: Pres ence of monoclonal protein is unclear at this time. Suggestrepeat in 3 to 6 months if clinically indicated. Performed By: #### L 500.4050, L3100.3425, L504.2610, L3130.0010, L100.0100 ####[facility] [address] [place], [address] IMMUNOGLOB A QN 34 mg/dL Low 61-437 [facility] Comment on above: Order Comment: N Result Comment: Resu lt confirmed on concentration. Performed By: #### L 500.4050, L3100.3425, L504.2610, L3130.0010, L100.0100 ####[facility] [address] [place], [address] IMMUNOGLOB G QN 412 mg/dL Low 603-1613 [facility] Comment on above: Order Comment: N Performed By: #### L 500.4050, L3100.3425, L504.2610, L3130.0010, L100.0100 ####[facility] [address] [place], [address] IMMUNOGLOB M QN 5 mg/dL Low 15-143 [facility] Comment on above: Order Comment: N Result Comment: Resu lt confirmed on concentration. Performed By: #### L 500.4050, L3100.3425, L504.2610, L3130.0010, L100.0100 ####[facility] [address] [place], [address] M-Tyrone Not Observed Normal Not Observed [facility] Comment on above: Order Comment: N Performed By: #### L 500.4050, L3100.3425, L504.2610, L3130.0010, L100.0100 ####[facility] [address] [place], [address] NOTE: Comment Normal . [facility] Comment on above: Order Comment: N Result Comment: Prot ein electrophoresis scan will follow via computer,mail, or casino host delivery. Performed By: #### L 500.4050, L3100.3425, L504.2610, L3130.0010, L100.0100 ####[facility] [address] [place], [address] Protein [Mass/Vol] 5.9 g/dL Low 6.0-8.5 [facility] Comment on above: Order Comment: N Performed By: #### L 500.4050, L3100.3425, L504.2610, L3130.0010, L100.0100 ####[facility] [address] [place], [address] [place] Lambda Light Chainson 02-12-2025 FR KAPPA LT CHN 16.1 mg/L Normal 3.3-19.4 [facility] Comment on above: Performed By: #### L 500.4050, L3100.3425, L504.2610, L3130.0010, L100.0100 ####[facility] [address] [place], [address] FR LAMBDA LT CH 7.3 mg/L Normal 5.7-26.3 [facility] Comment on above: Performed By: #### L 500.4050, L3100.3425, L504.2610, L3130.0010, L100.0100 ####[facility] [address] [place], [place], [id number] KAPPA/LAMBDA % 2.21 Abnormal 0.26-1.65 [facility] Comment on above: Result Comment: Perf ormed at: CB - [facility] [address] [id number] Director: Rolando Vega PhD, Phone: [phone] Performed By: #### L 500.4050, L3100.3425, L504.2610, L3130.0010, L100.0100 ####[facility] [address] [place], [place], [id number] L3410.9992on 02-12-2025 [facility] Misc. COMMENT Normal . 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 B-cells are negarive for CD20 expression, which can be seen inpatient with anti-CD20 therapy. Clinical correlation is recommended.Multiple previous flow cytometry results have been reviewed.Clinical Information Comment -Y Reference Range: .A recent CBC was not available for review at the time this report wasprepared.Specimen Type Comment -Y Reference Range: .Peripheral bloodAssessment of Leukocytes Comment -Y Reference Range: .A CD5+/CD23+/CD38+ (79%) monoclonal B cell population is detected with dimkappa light chain restriction, representing 99% of B-cells and 1% ofleukocytes, immunophenotype consistent with chronic lymphocyticleukemia/small lymphocytic lymphoma. CD11c expression cannot be reliablyassessed. Clonal B-cells are negative for CD20 expression. Expression ofCD38 on >30% of the clonal B-cells is reported to be an unfavorableprognostic factor in CLL.CD4:CD8 ratio 0.621% of T cells show loss of CD7 expression, a finding that can be seen inboth reactive and neoplastic processes. If clinically indicated, T-cellreceptor gene rearrangement study can be performed to confirm or exclude aclonal T-cell process.No circulating blasts are detected.There is no immunophenotypic evidence of abnormal myeloid maturation.15% eosinophils are detected.Analysis of the leukocyte population shows: granulocytes 78%, (includingeosinophils 15%) monocytes 9%, lymphocytes 13%, blasts <0.1%, B cells 1%, Tcells 12%, NK cells <1%.Viability Comment -Y Reference Range: .90%Immunophenotypic Profile Comment -Y Reference Range: .Abnormal cell population: present-1% of total cells (Phenotype below)Analysis and Gating Strategy Comment -Y Reference Range: .8 color analysis with CD45/SSC gating Technical-Analysis performed at [place] [address], [employer], [address], [facility] [address], Director: Dax Kumari, [facility], Phenotype Chart Comment -Y Reference Range: .CD2 (-) CD3 (-)CD4 (-) CD5 (+)CD7 (-) CD8 (-)CD10 (-) CD11b (-)CD11c See Text CD13 (-)CD14 (-) CD15 (-)CD16 (-) CD19 (+)CD20 (-) CD22 (+) DimCD23 (+) CD33 (-)CD34 (-) CD38 (+)CD45 (+) CD56 (-)CD57 (-) CD64 (-)CD103 (-) CD117 (-)FMC-7 (-) HLA-DR (+)KAPPA (+) Dim LAMBDA (-)Resulting Path Name Comment -Y Reference Range: .Beena Lopez M.D. Ph.DComment: Comment TG Reference Range: .Each antibody in this assay was utilized to assess forpotential abnormalities of studied cell populations or tocharacterize identified abnormalities.This test was developed and its performance characteristicsdetermined by [employer]. It has not been cleared or approvedby the U.S. Food and Drug Administration.The FDA has determined that such clearance or approval isnot necessary. This test is used for clinical purposes. Itshould not be regarded as investigational or for research.Performed at: -Y - [employer] [id number] [facility], [place], [place] [id number] Director: Dax Kumari [facility], Phone: [phone] at: TG - [facility] [id number] [facility], [place] [id number] Director: Dax Kumari [facility], Phone: [phone] at: [facility] [place] [id number] Director: Rolando Vega PhD, Phone: [phone] Performed By: #### L 3410.9992, L3410.9994, L3410.9996 ####[facility] [address] [place], [place], [id number] Absolute lymphocyte countOrd ered By: Clement Lewis on 02-09-2025 Lymphocytes Auto (Unsp spec) [#/Vol] 0.81 10*3/uL Low 0.83-4.51 [facility] Absolute neutrophil countOrd ered By: Clement Concepcion on 02-09-2025 Neutrophils (Bld) [#/Vol] 2.6 10*3/uL 2.0-7.7 [facility] Albumin Elph [Mass/Vol]Order ed By: Clement Lewis on 02-09-2025 Albumin [Mass/Vol] 3.8 g/dL 2.9-4.4 [facility] Anion gap in Serum or Plasma Ordered By: Clement Lewis on 02-09-2025 Anion gap [Moles/Vol] 10 mmol/L 5-15 [facility] Automated lymphocyte count a s percentage of total leukocytesOrdered By: Clement Lewis on 02-09-2025 Lymphocytes/100 WBC Auto (Unsp spec) 16.5 % Low 19-41 [facility] BUN/creatinine ratioOrdered By: Clement Lewis on 09-29-2025 Urea nitrogen/Creatinine [Mass ratio] 13.1 mg/mg 10-20 [facility] Basophil percentageOrdered B y: Clement Lewis on 02-09-2025 Basophils/100 WBC (Bld) 2.0 % High 0-1 [facility] Bilirubin, totalOrdered By: Clement Lewis on 02-09-2025 Bilirubin [Mass/Vol] 0.75 mg/dL 0.00-1.30 [facility] CBC W/Diff, Automatedon 01-13 Absolute Lymph 0.81 X10 3/uL Low 0.83-4.51 [facility] Comment on above: Performed By: #### L 500.4050, L3100.3425, L504.2610, L3130.0010, L100.0100 ####[facility] [address] [place], [address] Absolute Neut 2.6 X10 3/uL Normal 2.0-7.7 [facility] Comment on above: Performed By: #### L 500.4050, L3100.3425, L504.2610, L3130.0010, L100.0100 ####[facility] [address] [place], [address] Basophils/100 WBC (Bld) 2.0 % High 0-1 [facility] Comment on above: Performed By: #### L 500.4050, L3100.3425, L504.2610, L3130.0010, L100.0100 ####[facility] [address] [place], [address] Eosinophils/100 WBC (Bld) 15.2 % High 0-5 [facility] Comment on above: Performed By: #### L 500.4050, L3100.3425, L504.2610, L3130.0010, L100.0100 ####[facility] [address] [place], [address] Erythrocyte distribution width (RBC) [Ratio] 17.3 % High 11.6-14.6 [facility] Comment on above: Performed By: #### L 500.4050, L3100.3425, L504.2610, L3130.0010, L100.0100 ####[facility] [address] [place], [address] Hematocrit (Bld) [Volume fraction] 41.1 % Normal 40-54 [facility] Comment on above: Performed By: #### L 500.4050, L3100.3425, L504.2610, L3130.0010, L100.0100 ####[facility] [address] [place], [address] Hemoglobin (Bld) [Mass/Vol] 13.2 g/dL Normal 13.0-16.5 [facility] Comment on above: Performed By: #### L 500.4050, L3100.3425, L504.2610, L3130.0010, L100.0100 ####[facility] [address] [place], [address] IG% 0.600 Normal 0.0-0.9 [facility] Comment on above: Result Comment: IG% - Immature Granulocytes (promyelocytes, myelocytes andmetamyelocytes) > 1% indicates that a LEFT SHIFT is Present. Performed By: #### L 500.4050, L3100.3425, L504.2610, L3130.0010, L100.0100 ####[facility] [address] [place], [address] Lymphocytes/100 WBC (Bld) 16.5 % Low 19-41 [facility] Comment on above: Performed By: #### L 500.4050, L3100.3425, L504.2610, L3130.0010, L100.0100 ####[facility] [address] [place], [address] MCH (RBC) [Entitic mass] 27.3 pg Normal 27.0-32.0 [facility] Comment on above: Performed By: #### L 500.4050, L3100.3425, L504.2610, L3130.0010, L100.0100 ####[facility] [address] [place], [address] MCHC (RBC) [Mass/Vol] 32.1 g/dL Normal 32-36 [facility] Comment on above: Performed By: #### L 500.4050, L3100.3425, L504.2610, L3130.0010, L100.0100 ####[facility] [address] [place], [address] MCV (RBC) [Entitic vol] 85.1 fL Normal 80-94 [facility] Comment on above: Performed By: #### L 500.4050, L3100.3425, L504.2610, L3130.0010, L100.0100 ####[facility] [address] [place], [address] Monocytes/100 WBC (Bld) 12.8 % High 0-10 [facility] Comment on above: Performed By: #### L 500.4050, L3100.3425, L504.2610, L3130.0010, L100.0100 ####[facility] [address] [place], [address] Neutrophils/100 WBC (Bld) 52.9 % Normal 47-70 [facility] Comment on above: Performed By: #### L 500.4050, L3100.3425, L504.2610, L3130.0010, L100.0100 ####[facility] [address] [place], [address] Nucleated RBC (Bld) [#/Vol] 0 10*3/uL Normal 0-5 [facility] Comment on above: Performed By: #### L 500.4050, L3100.3425, L504.2610, L3130.0010, L100.0100 ####[facility] [address] [place], [address] Platelet mean volume (Bld) [Entitic vol] 9.1 fL Normal 6.2-12.0 [facility] Comment on above: Performed By: #### L 500.4050, L3100.3425, L504.2610, L3130.0010, L100.0100 ####[facility] [address] [place], [address] Platelets (Bld) [#/Vol] 171 10*3/uL Normal 150-450 [facility] Comment on above: Performed By: #### L 500.4050, L3100.3425, L504.2610, L3130.0010, L100.0100 ####[facility] [address] [place], [address] RBC (Bld) [#/Vol] 4.83 10*6/uL Normal 4.6-6.2 [facility] Comment on above: Performed By: #### L 500.4050, L3100.3425, L504.2610, L3130.0010, L100.0100 ####[facility] [address] [place], [address] RDW SD 50.4 fl High 35.1-43.9 [facility] Comment on above: Performed By: #### L 500.4050, L3100.3425, L504.2610, L3130.0010, L100.0100 ####[facility] [address] [place], [address] WBC (Bld) [#/Vol] 4.9 10*3/uL Normal 4.4-11.0 [facility] Comment on above: Performed By: #### L 500.4050, L3100.3425, L504.2610, L3130.0010, L100.0100 ####[facility] [address] [place], [address] Absolute Neut Normal 2.0-7.7 [facility] Comment on above: Result Comment: DUPL ICATE ORDER Performed By: #### L 100.0100, L501.1400 ####[facility] [address] [place], [address] HCT Normal 40-54 [facility] Comment on above: Result Comment: DUPL ICATE ORDER Performed By: #### L 100.0100, L501.1400 ####[facility] [address] [place], [address] HGB Normal 13.0-16.5 [facility] Comment on above: Result Comment: DUPL ICATE ORDER Performed By: #### L 100.0100, L501.1400 ####[facility] [address] [place], [address] MCH Normal 27.0-32.0 [facility] Comment on above: Result Comment: DUPL ICATE ORDER Performed By: #### L 100.0100, L501.1400 ####[facility] [address] [place], [address] MCHC Normal 32-36 [facility] Comment on above: Result Comment: DUPL ICATE ORDER Performed By: #### L 100.0100, L501.1400 ####[facility] [address] [place], [address] MCV Normal 80-94 [facility] Comment on above: Result Comment: DUPL ICATE ORDER Performed By: #### L 100.0100, L501.1400 ####[facility] [address] [place], [address] NEUT% Normal 47-70 [facility] Comment on above: Result Comment: DUPL ICATE ORDER Performed By: #### L 100.0100, L501.1400 ####[facility] [address] [place], [address] PLT Normal 150-450 [facility] Comment on above: Result Comment: DUPL ICATE ORDER Performed By: #### L 100.0100, L501.1400 ####[facility] [address] [place], [address] RBC Normal 4.6-6.2 [facility] Comment on above: Result Comment: DUPL ICATE ORDER Performed By: #### L 100.0100, L501.1400 ####[facility] [address] [place], [address] RDW CV Normal 11.6-14.6 [facility] Comment on above: Result Comment: DUPL ICATE ORDER Performed By: #### L 100.0100, L501.1400 ####[facility] [address] [place], [address] RDW SD Normal 35.1-43.9 [facility] Comment on above: Result Comment: DUPL ICATE ORDER Performed By: #### L 100.0100, L501.1400 ####[facility] [address] [place], [address] WBC Normal 4.4-11.0 [facility] Comment on above: Result Comment: DUPL ICATE ORDER Performed By: #### L 100.0100, L501.1400 ####[facility] [address] [place], [address] Carbon dioxide, total [Moles /volume] in Central venous bloodOrdered By: Clement Lewis on 02-09-2025 CO2 [Moles/Vol] 24.2 mmol/L 21.0-32.0 [facility] Chloride assayOrdered By: Sandy Lewis on 02-09-2025 Chloride [Moles/Vol] 106 mmol/L 98-108 [facility] Comprehensive Metabolic Prof ilon 02-09-2025 Albumin [Mass/Vol] 4.1 g/dL Normal 3.4-4.8 [facility] Comment on above: Performed By: #### L 500.4050, L3100.3425, L504.2610, L3130.0010, L100.0100 ####[facility] [address] [place], [address] Albumin/Globulin [Mass ratio] 2.2 {ratio} Normal 0.9-2.4 [facility] Comment on above: Performed By: #### L 500.4050, L3100.3425, L504.2610, L3130.0010, L100.0100 ####[facility] [address] [place], [address] ALK PHOS 68 U/L Normal 40-129 [facility] Comment on above: Performed By: #### L 500.4050, L3100.3425, L504.2610, L3130.0010, L100.0100 ####[facility] [address] [place], [address] ALT [Catalytic activity/Vol] 13 U/L Normal <=46 [facility] Comment on above: Performed By: #### L 500.4050, L3100.3425, L504.2610, L3130.0010, L100.0100 ####[facility] [address] [place], [address] AST [Catalytic activity/Vol] 23 U/L Normal <=37 [facility] Comment on above: Performed By: #### L 500.4050, L3100.3425, L504.2610, L3130.0010, L100.0100 ####[facility] [address] [place], [address] Bilirubin [Mass/Vol] 0.75 mg/dL Normal 0.00-1.30 [facility] Comment on above: Performed By: #### L 500.4050, L3100.3425, L504.2610, L3130.0010, L100.0100 ####[facility] [address] [place], [address] BUN/CRE 13.1 RATIO Normal 10-20 [facility] Comment on above: Performed By: #### L 500.4050, L3100.3425, L504.2610, L3130.0010, L100.0100 ####[facility] [address] [place], [address] Calcium [Mass/Vol] 9.2 mg/dL Normal 7.6-11.0 [facility] Comment on above: Performed By: #### L 500.4050, L3100.3425, L504.2610, L3130.0010, L100.0100 ####[facility] [address] [place], [address] Chloride [Moles/Vol] 106 mmol/L Normal 98-108 [facility] Comment on above: Performed By: #### L 500.4050, L3100.3425, L504.2610, L3130.0010, L100.0100 ####[facility] [address] [place], [address] CO2 [Moles/Vol] 24.2 mmol/L Normal 21.0-32.0 [facility] Comment on above: Performed By: #### L 500.4050, L3100.3425, L504.2610, L3130.0010, L100.0100 ####[facility] [address] [place], [address] Creatinine [Mass/Vol] 0.99 mg/dL Normal 0.70-1.20 [facility] Comment on above: Performed By: #### L 500.4050, L3100.3425, L504.2610, L3130.0010, L100.0100 ####[facility] [address] [place], [address] ECRCL 55.55 ml/min Normal 50-250 [facility] Comment on above: Performed By: #### L 500.4050, L3100.3425, L504.2610, L3130.0010, L100.0100 ####[facility] [address] [place], [address] GAP 10 Normal 5-15 [facility] Comment on above: Performed By: #### L 500.4050, L3100.3425, L504.2610, L3130.0010, L100.0100 ####[facility] [address] [place], [address] GFR/1.73 sq M.predicted among non-blacks MDRD (S/P/Bld) [Vol rate/Area] 79 mL/min/{1.73_m2} Normal >60 [facility] Comment on above: Result Comment: mL/m in/1.73m2 CKD-EPI Creatinine Equation (2020) Performed By: #### L 500.4050, L3100.3425, L504.2610, L3130.0010, L100.0100 ####[facility] [address] [place], [address] Globulin (S) [Mass/Vol] 1.9 g/dL Low 2.2-4.2 [facility] Comment on above: Performed By: #### L 500.4050, L3100.3425, L504.2610, L3130.0010, L100.0100 ####[facility] [address] [place], [address] Glucose [Mass/Vol] 88 mg/dL Normal 70-99 [facility] Comment on above: Performed By: #### L 500.4050, L3100.3425, L504.2610, L3130.0010, L100.0100 ####[facility] [address] [place], [address] Potassium [Moles/Vol] 3.9 mmol/L Normal 3.3-5.1 [facility] Comment on above: Performed By: #### L 500.4050, L3100.3425, L504.2610, L3130.0010, L100.0100 ####[facility] [address] [place], [address] Sodium [Moles/Vol] 140 mmol/L Normal 133-145 [facility] Comment on above: Performed By: #### L 500.4050, L3100.3425, L504.2610, L3130.0010, L100.0100 ####[facility] [address] [place], [address] T PROT 5.9 g/dL Normal 5.9-8.4 [facility] Comment on above: Performed By: #### L 500.4050, L3100.3425, L504.2610, L3130.0010, L100.0100 ####[facility] [address] [place], [address] Urea nitrogen [Mass/Vol] 13 mg/dL Normal 4-19 [facility] Comment on above: Performed By: #### L 500.4050, L3100.3425, L504.2610, L3130.0010, L100.0100 ####[facility] [address] [place], [address] Eosinophil percentageOrdered By: Clement Lewis on 02-09-2025 Eosinophils/100 WBC (Bld) 15.2 % High 0-5 [facility] Erythrocyte distribution wid th ratioOrdered By: Clement Lewis on 02-09-2025 Erythrocyte distribution width (RBC) [Ratio] 17.3 % High 11.6-14.6 [facility] Erythrocyte distribution wid th standard deviationOrdered By: Clement Lewis on 02-09-2025 Erythrocyte distribution width (RBC) [Ratio] 50.4 fl High 35.1-43.9 [facility] Glomerular filtration rate ( GFR) estimation/1.73 sq m using serum, plasma, or whole bOrdered By: Clement Lewis on 02-09-2025 GFR/1.73 sq M.predicted among non-blacks MDRD (S/P/Bld) [Vol rate/Area] 79 mL/min/{1.73_m2} >60 [facility] Comment on above: mL/min/1.73m2 CKD-EP I Creatinine Equation (2020) Hematocrit Auto (Bld) [Volum e fraction]Ordered By: Clement Lewis on 02-09-2025 Hematocrit (Bld) [Volume fraction] 41.1 % 40-54 [facility] Hemoglobin measurementOrdere d By: Clement Lewis on 02-09-2025 Hemoglobin (Bld) [Mass/Vol] 13.2 g/dL 13.0-16.5 [facility] Immature granulocytes/100 WB C Auto (Bld)Ordered By: Clement Lewis on 02-09-2025 Immature granulocytes/100 WBC (Bld) 0.600 % 0.0-0.9 [facility] Comment on above: IG% - Immature Granu locytes (promyelocytes, myelocytes and metamyelocytes) > 1% indicates that a LEFT SHIFT is Present. Interpretation of serum or p lasma protein pattern by immunofixation (narrative resultOrdered By: Clement Lewis on 02-09-2025 Protein Fractions Immunofixation Ty [Interp] Not Observed g/dL Not Observed [facility] LDHon 02-09-2025 LDH 241 U/L Normal 87-241 [facility] Comment on above: Order Comment: 1 Performed By: #### L 500.4050, L3100.3425, L504.2610, L3130.0010, L100.0100 ####[facility] [address] [place], [address] Laboratory - Chemistry and C hemistry - challengeOrdered By: Clement Lewis on 02-09-2025 AST [Catalytic activity/Vol] 23 U/L <38 [facility] Lactate dehydrogenase (LDH) measurementOrdered By: Clement Lewis on 02-09-2025 LDH [Catalytic activity/Vol] 241 U/L 87-241 [facility] MCV (mean corpuscular volume ) determinationOrdered By: Clement Lewis on 02-09-2025 MCV (RBC) [Entitic vol] 85.1 fL 80-94 [facility] Mean corpuscular hemoglobin (MCH) determinationOrdered By: Clement Lewis on 02-09-2025 MCH (RBC) [Entitic mass] 27.3 pg 27.0-32.0 [facility] Mean corpuscular hemoglobin concentration (MCHC) determinationOrdered By: Clement Lewis on 02-09-2025 MCHC (RBC) [Mass/Vol] 32.1 g/dL 32-36 [facility] Mean platelet volume determi nationOrdered By: Clement Lewis on 02-09-2025 Platelet mean volume (Bld) [Entitic vol] 9.1 fL 6.2-12.0 [facility] Monocyte percentageOrdered B y: Clement Lewis on 02-09-2025 Monocytes/100 WBC (Bld) 12.8 % High 0-10 [facility] Neutrophil percentageOrdered By: Clement Lewis on 02-09-2025 Neutrophils/100 WBC (Bld) 52.9 % 47-70 [facility] No Panel InformationOrdered By: Clement Lewis on 02-09-2025 Addendum Document Comment . [facility] Comment on above: Protein electrophore sis scan will follow via computer,mail, or casino host delivery. Nucleated red blood cell per centageOrdered By: Clement Lewis on 02-09-2025 Nucleated RBC/100 WBC (Bld) [Ratio] 0 % 0-5 [facility] Oncology Visit Reporton 01-13 Oncology Visit Report Normal [facility] Platelet countOrdered By: Sandy Lewis on 02-09-2025 Platelets (Bld) [#/Vol] 171 10*3/uL 150-450 [facility] Potassium measurement (mass/ volume)Ordered By: Clement Lewis on 02-09-2025 Potassium (Unsp spec) [Mass/Vol] 3.9 mmol/L 3.3-5.1 [facility] RBC Auto (Bld) [#/Vol]Ordere d By: Clement Lewis on 02-09-2025 RBC (Bld) [#/Vol] 4.83 10*6/uL 4.6-6.2 [facility] Serum creatinine measurement (mass/volume)Ordered By: Clement Lewis on 02-09-2025 Creatinine [Mass/Vol] 0.99 mg/dL 0.70-1.20 [facility] Serum globulin measurementOr dered By: Clement Lewis on 02-09-2025 Globulin (S) [Mass/Vol] 1.9 g/dL Low 2.2-4.2 [facility] Serum glucose measurement (m ass/volume)Ordered By: Clement Lewis on 02-09-2025 Glucose [Mass/Vol] 88 mg/dL 70-99 [facility] Serum immunoglobulin kappa l ight chains/immunoglobulin lambda light chains mass ratioOrdered By: Clement Lewis on 02-09-2025 Immunoglobulin light chains.kappa/Immunoglo bulin light chains.lambda (S) [Mass ratio] 2.21 High 0.26-1.65 [facility] Comment on above: Performed at: [place] [id number] Director: Rolando Vega PhD, Phone: [phone] Serum or plasma IgA measurem ent (mass/volume)Ordered By: Clement Lewis on 02-09-2025 IgA [Mass/Vol] 34 mg/dL Low 61-437 [facility] Comment on above: Result confirmed on concentration. Serum or plasma IgG measurem ent (mass/volume)Ordered By: Clement Lewis on 02-09-2025 IgG [Mass/Vol] 412 mg/dL Low 603-1613 [facility] Serum or plasma alanine brumfield otransferase (ALT) measurementOrdered By: Clement Lewis on 02-09-2025 ALT [Catalytic activity/Vol] 13 U/L <47 [facility] Serum or plasma albumin lukas urement (mass/volume)Ordered By: Clement Lewis on 02-09-2025 Albumin [Mass/Vol] 4.1 g/dL 3.4-4.8 [facility] Serum or plasma albumin/glob ulin mass ratioOrdered By: Clement Lewis on 02-09-2025 Albumin/Globulin [Mass ratio] 2.2 {ratio} 0.9-2.4 [facility] Serum or plasma alkaline simba sphatase measurementOrdered By: Clement Lewis on 02-09-2025 ALP [Catalytic activity/Vol] 68 U/L 40-129 [facility] Serum or plasma alpha 1 glob ulin measurement by electrophoresis (mass/volume)Ordered By: Clement Lewis on 02-09-2025 Alpha 1 globulin Elph [Mass/Vol] 0.3 g/dL 0.0-0.4 [facility] Alpha 1 globulin Elph [Mass/Vol] 0.6 g/dL 0.4-1.0 [facility] Serum or plasma beta globuli n measurement by electrophoresis (mass/volume)Ordered By: Clement Concepcion on 02-09-2025 Beta globulin Elph [Mass/Vol] 0.9 g/dL 0.7-1.3 [facility] Serum or plasma calcium lukas urement (mass/volume)Ordered By: Clement Lewis on 02-09-2025 Calcium [Mass/Vol] 9.2 mg/dL 7.6-11.0 [facility] Serum or plasma gamma globul in measurement by electrophoresis (mass/volume)Ordered By: Clement Lewis on 02-09-2025 Gamma globulin Elph [Mass/Vol] 0.3 g/dL Low 0.4-1.8 [facility] Serum or plasma immunoelectr ophoresis interpretation (nominal result)Ordered By: Clement Lewis on 02-09-2025 Interpretation IEP [Interp] Comment: . [facility] Comment on above: Presence of monoclon al protein is unclear at this time. Suggestrepeat in 3 to 6 months if clinically indicated. Serum or plasma immunoglobul in kappa light chains measurement (mass/volume)Ordered By: Clement Lewis on 02-09-2025 Immunoglobulin light chains.kappa [Mass/Vol] 16.1 mg/L 3.3-19.4 [facility] Serum or plasma urea nitroge n measurement (mass/volume)Ordered By: Clement Lewis on 02-09-2025 Urea nitrogen [Mass/Vol] 13 mg/dL 4-19 [facility] Serum or plasma uric acid me asurement (mass/volume)Ordered By: Clement Concepcion on 02-09-2025 Urate [Mass/Vol] 2.8 mg/dL Low 3.5-7.2 [facility] Comment on above: The drugs N-Acetylcy steine and Metamizole may falsely depress this assay. Sodium levelOrdered By: Kameron Lewis on 02-09-2025 Sodium [Moles/Vol] 140 mmol/L 133-145 [facility] Total proteinOrdered By: Sekou barber Joshua on 02-09-2025 Protein [Mass/Vol] 5.9 g/dL Low 6.0-8.5 [facility] Uric Acidon 02-09-2025 URIC 2.8 mg/dL Low 3.5-7.2 [facility] Comment on above: Result Comment: The drugs N-Acetylcysteine and Metamizole may falselydepress this assay. Performed By: #### L 100.0100, L501.1400 ####[facility] [address] [place], [address] White blood cell (WBC) count Ordered By: Clement Lewis on 02-09-2025 WBC (Bld) [#/Vol] 4.9 10*3/uL 4.4-11.0 [facility] Absolute lymphocyte countOrd ered By: Billie Del Rio on 01-26-2025 Lymphocytes Auto (Unsp spec) [#/Vol] 0.80 10*3/uL Low 0.83-4.51 [facility] Absolute neutrophil countOrd ered By: Billie Del Rio on 01-26-2025 Neutrophils (Bld) [#/Vol] 2.7 10*3/uL 2.0-7.7 [facility] Anion gap in Serum or Plasma Ordered By: Billie Del Rio on 01-26-2025 Anion gap [Moles/Vol] 8 mmol/L 5-15 [facility] Automated lymphocyte count a s percentage of total leukocytesOrdered By: Billie Del Rio on 01-26-2025 Lymphocytes/100 WBC Auto (Unsp spec) 16.1 % Low 19-41 [facility] BUN/creatinine ratioOrdered By: Billie SanchezQuang on 01-26-2025 Urea nitrogen/Creatinine [Mass ratio] 13.2 mg/mg 10-20 [facility] Basophil percentageOrdered B y: Billie Del Rio on 01-26-2025 Basophils/100 WBC (Bld) 1.0 % 0-1 [facility] Bilirubin, totalOrdered By: Billie Del Rio on 01-26-2025 Bilirubin [Mass/Vol] 0.80 mg/dL 0.00-1.30 [facility] CBC W/Diff, Automatedon 01-12 Absolute Lymph 0.80 X10 3/uL Low 0.83-4.51 [facility] Comment on above: Performed By: #### L 504.2610, L100.0100, L500.4050 ####[facility] [address] [place], [address] Absolute Neut 2.7 X10 3/uL Normal 2.0-7.7 [facility] Comment on above: Performed By: #### L 504.2610, L100.0100, L500.4050 ####[facility] [address] [place], [address] Basophils/100 WBC (Bld) 1.0 % Normal 0-1 [facility] Comment on above: Performed By: #### L 504.2610, L100.0100, L500.4050 ####[facility] [address] [place], [address] Eosinophils/100 WBC (Bld) 12.9 % High 0-5 [facility] Comment on above: Performed By: #### L 504.2610, L100.0100, L500.4050 ####[facility] [address] [place], [address] Erythrocyte distribution width (RBC) [Ratio] 15.2 % High 11.6-14.6 [facility] Comment on above: Performed By: #### L 504.2610, L100.0100, L500.4050 ####[facility] [address] [place], [address] Hematocrit (Bld) [Volume fraction] 37.0 % Low 40-54 [facility] Comment on above: Performed By: #### L 504.2610, L100.0100, L500.4050 ####[facility] [address] [place], [address] Hemoglobin (Bld) [Mass/Vol] 11.7 g/dL Low 13.0-16.5 [facility] Comment on above: Performed By: #### L 504.2610, L100.0100, L500.4050 ####[facility] [address] [place], [address] IG% 0.400 Normal 0.0-0.9 [facility] Comment on above: Result Comment: IG% - Immature Granulocytes (promyelocytes, myelocytes andmetamyelocytes) > 1% indicates that a LEFT SHIFT is Present. Performed By: #### L 504.2610, L100.0100, L500.4050 ####[facility] [address] [place], [address] Lymphocytes/100 WBC (Bld) 16.1 % Low 19-41 [facility] Comment on above: Performed By: #### L 504.2610, L100.0100, L500.4050 ####[facility] [address] [place], [address] MCH (RBC) [Entitic mass] 27.1 pg Normal 27.0-32.0 [facility] Comment on above: Performed By: #### L 504.2610, L100.0100, L500.4050 ####[facility] [address] [place], [address] MCHC (RBC) [Mass/Vol] 31.6 g/dL Low 32-36 [facility] Comment on above: Performed By: #### L 504.2610, L100.0100, L500.4050 ####[facility] [address] [place], [address] MCV (RBC) [Entitic vol] 85.6 fL Normal 80-94 [facility] Comment on above: Performed By: #### L 504.2610, L100.0100, L500.4050 ####[facility] [address] [place], [address] Monocytes/100 WBC (Bld) 14.7 % High 0-10 [facility] Comment on above: Performed By: #### L 504.2610, L100.0100, L500.4050 ####[facility] [address] [place], [address] Neutrophils/100 WBC (Bld) 54.9 % Normal 47-70 [facility] Comment on above: Performed By: #### L 504.2610, L100.0100, L500.4050 ####[facility] [address] [place], [address] Nucleated RBC (Bld) [#/Vol] 0 10*3/uL Normal 0-5 [facility] Comment on above: Performed By: #### L 504.2610, L100.0100, L500.4050 ####[facility] [address] [place], [address] Platelet mean volume (Bld) [Entitic vol] 9.7 fL Normal 6.2-12.0 [facility] Comment on above: Performed By: #### L 504.2610, L100.0100, L500.4050 ####[facility] [address] [place], [address] Platelets (Bld) [#/Vol] 139 10*3/uL Low 150-450 [facility] Comment on above: Performed By: #### L 504.2610, L100.0100, L500.4050 ####[facility] [address] [place], [address] RBC (Bld) [#/Vol] 4.32 10*6/uL Low 4.6-6.2 [facility] Comment on above: Performed By: #### L 504.2610, L100.0100, L500.4050 ####[facility] [address] [place], [address] RDW SD 44.8 fl High 35.1-43.9 [facility] Comment on above: Performed By: #### L 504.2610, L100.0100, L500.4050 ####[facility] [address] [place], [address] WBC (Bld) [#/Vol] 5.0 10*3/uL Normal 4.4-11.0 [facility] Comment on above: Performed By: #### L 504.2610, L100.0100, L500.4050 ####[facility] [address] [place], [address] Carbon dioxide, total [Moles /volume] in Central venous bloodOrdered By: Billie Del Rio on 01-26-2025 CO2 [Moles/Vol] 24.4 mmol/L 21.0-32.0 [facility] Chloride assayOrdered By: Biju Del Rio on 01-26-2025 Chloride [Moles/Vol] 111 mmol/L High 98-108 [facility] Comprehensive Metabolic Prof ilon 01-26-2025 Albumin [Mass/Vol] 3.7 g/dL Normal 3.4-4.8 [facility] Comment on above: Performed By: #### L 504.2610, L100.0100, L500.4050 ####[facility] [address] [place], [address] Albumin/Globulin [Mass ratio] 1.9 {ratio} Normal 0.9-2.4 [facility] Comment on above: Performed By: #### L 504.2610, L100.0100, L500.4050 ####[facility] [address] [facility], [address] ALK PHOS 53 U/L Normal 40-129 [facility] Comment on above: Performed By: #### L 504.2610, L100.0100, L500.4050 ####[facility] [address] [place], [address] ALT [Catalytic activity/Vol] 16 U/L Normal <=46 [facility] Comment on above: Performed By: #### L 504.2610, L100.0100, L500.4050 ####[facility] [address] [place], [address] AST [Catalytic activity/Vol] 23 U/L Normal <=37 [facility] Comment on above: Performed By: #### L 504.2610, L100.0100, L500.4050 ####[facility] [address] [place], [address] Bilirubin [Mass/Vol] 0.80 mg/dL Normal 0.00-1.30 [facility] Comment on above: Performed By: #### L 504.2610, L100.0100, L500.4050 ####[facility] [address] [place], [address] BUN/CRE 13.2 RATIO Normal 10-20 [facility] Comment on above: Performed By: #### L 504.2610, L100.0100, L500.4050 ####[facility] [address] [place], [address] Calcium [Mass/Vol] 8.8 mg/dL Normal 7.6-11.0 [facility] Comment on above: Performed By: #### L 504.2610, L100.0100, L500.4050 ####[facility] [address] [place], [address] Chloride [Moles/Vol] 111 mmol/L High 98-108 [facility] Comment on above: Performed By: #### L 504.2610, L100.0100, L500.4050 ####[facility] [address] [place], [address] CO2 [Moles/Vol] 24.4 mmol/L Normal 21.0-32.0 [facility] Comment on above: Performed By: #### L 504.2610, L100.0100, L500.4050 ####[facility] [address] [place], [address] Creatinine [Mass/Vol] 1.12 mg/dL Normal 0.70-1.20 [facility] Comment on above: Performed By: #### L 504.2610, L100.0100, L500.4050 ####[facility] [address] [place], [address] ECRCL 49.26 ml/min Low 50-250 [facility] Comment on above: Performed By: #### L 504.2610, L100.0100, L500.4050 ####[facility] [address] [place], [address] GAP 8 Normal 5-15 [facility] Comment on above: Performed By: #### L 504.2610, L100.0100, L500.4050 ####[facility] [address] [place], [address] GFR/1.73 sq M.predicted among non-blacks MDRD (S/P/Bld) [Vol rate/Area] 68 mL/min/{1.73_m2} Normal >60 [facility] Comment on above: Result Comment: mL/m in/1.73m2 CKD-EPI Creatinine Equation (2020) Performed By: #### L 504.2610, L100.0100, L500.4050 ####[facility] [address] [place], [address] Globulin (S) [Mass/Vol] 2.0 g/dL Low 2.2-4.2 [facility] Comment on above: Performed By: #### L 504.2610, L100.0100, L500.4050 ####[facility] [address] [place], [address] Glucose [Mass/Vol] 75 mg/dL Normal 70-99 [facility] Comment on above: Performed By: #### L 504.2610, L100.0100, L500.4050 ####[facility] [address] [place], [address] Potassium [Moles/Vol] 4.1 mmol/L Normal 3.3-5.1 [facility] Comment on above: Performed By: #### L 504.2610, L100.0100, L500.4050 ####[facility] [address] [place], [address] Sodium [Moles/Vol] 143 mmol/L Normal 133-145 [facility] Comment on above: Performed By: #### L 504.2610, L100.0100, L500.4050 ####[facility] [address] [place], [address] T PROT 5.6 g/dL Low 5.9-8.4 [facility] Comment on above: Performed By: #### L 504.2610, L100.0100, L500.4050 ####[facility] [address] [place], [address] Urea nitrogen [Mass/Vol] 15 mg/dL Normal 4-19 [facility] Comment on above: Performed By: #### L 504.2610, L100.0100, L500.4050 ####[facility] [address] [place], [address] Eosinophil percentageOrdered By: Billie Del Rio on 01-26-2025 Eosinophils/100 WBC (Bld) 12.9 % High 0-5 [facility] Erythrocyte distribution wid th ratioOrdered By: Billieradha Del Rio on 01-26-2025 Erythrocyte distribution width (RBC) [Ratio] 15.2 % High 11.6-14.6 [facility] Erythrocyte distribution wid th standard deviationOrdered By: [facility] Hospital[facility] on 01-26-2025 Erythrocyte distribution width (RBC) [Ratio] 44.8 fl High 35.1-43.9 [facility] Glomerular filtration rate ( GFR) estimation/1.73 sq m using serum, plasma, or whole bOrdered By: [facility] Hospital[facility] on 01-26-2025 GFR/1.73 sq M.predicted among non-blacks MDRD (S/P/Bld) [Vol rate/Area] 68 mL/min/{1.73_m2} >60 [facility] Comment on above: mL/min/1.73m2 CKD-EP I Creatinine Equation (2020) Hematocrit Auto (Bld) [Volum e fraction]Ordered By: Billie Del Rio on 01-26-2025 Hematocrit (Bld) [Volume fraction] 37.0 % Low 40-54 [facility] Hemoglobin measurementOrdere d By: Billie Quang on 01-26-2025 Hemoglobin (Bld) [Mass/Vol] 11.7 g/dL Low 13.0-16.5 [facility] Immature granulocytes/100 WB C Auto (Bld)Ordered By: Billie Quang on 01-26-2025 Immature granulocytes/100 WBC (Bld) 0.400 % 0.0-0.9 [facility] Comment on above: IG% - Immature Granu locytes (promyelocytes, myelocytes and metamyelocytes) > 1% indicates that a LEFT SHIFT is Present. LDHon 01-26-2025 LDH 261 U/L High 87-241 [facility] Comment on above: Order Comment: 1 Performed By: #### L 504.2610, L100.0100, L500.4050 ####[facility] [address] [place], [address] Laboratory - Chemistry and C hemistry - challengeOrdered By: Billie Del Rio on 01-26-2025 AST [Catalytic activity/Vol] 23 U/L <38 [facility] Lactate dehydrogenase (LDH) measurementOrdered By: Billie Del Rio on 01-26-2025 LDH [Catalytic activity/Vol] 261 U/L High 87-241 [facility] MCV (mean corpuscular volume ) determinationOrdered By: Billie Del Rio on 01-26-2025 MCV (RBC) [Entitic vol] 85.6 fL 80-94 [facility] Mean corpuscular hemoglobin (MCH) determinationOrdered By: Billie Del Rio on 01-26-2025 MCH (RBC) [Entitic mass] 27.1 pg 27.0-32.0 [facility] Mean corpuscular hemoglobin concentration (MCHC) determinationOrdered By: Billie SanchezQuang on 01-26-2025 MCHC (RBC) [Mass/Vol] 31.6 g/dL Low 32-36 [facility] Mean platelet volume determi nationOrdered By: Billie Del Rio on 01-26-2025 Platelet mean volume (Bld) [Entitic vol] 9.7 fL 6.2-12.0 [facility] Monocyte percentageOrdered B y: Billie Del Rio on 01-26-2025 Monocytes/100 WBC (Bld) 14.7 % High 0-10 [facility] Neutrophil percentageOrdered By: Billie Del Rio on 01-26-2025 Neutrophils/100 WBC (Bld) 54.9 % 47-70 [facility] Nucleated red blood cell per centageOrdered By: Billie Del Rio on 01-26-2025 Nucleated RBC/100 WBC (Bld) [Ratio] 0 % 0-5 [facility] Oncology Visit Reporton 01-12 Oncology Visit Report Normal [facility] Platelet countOrdered By: Biju Del Rio on 01-26-2025 Platelets (Bld) [#/Vol] 139 10*3/uL Low 150-450 [facility] Potassium measurement (mass/ volume)Ordered By: Billie Del Rio on 01-26-2025 Potassium (Unsp spec) [Mass/Vol] 4.1 mmol/L 3.3-5.1 [facility] RBC Auto (Bld) [#/Vol]Ordere d By: Billie Del Rio on 01-26-2025 RBC (Bld) [#/Vol] 4.32 10*6/uL Low 4.6-6.2 [facility] Serum creatinine measurement (mass/volume)Ordered By: Billie Del Rio on 01-26-2025 Creatinine [Mass/Vol] 1.12 mg/dL 0.70-1.20 [facility] Serum globulin measurementOr dered By: Billie Del Rio on 01-26-2025 Globulin (S) [Mass/Vol] 2.0 g/dL Low 2.2-4.2 [facility] Serum glucose measurement (m ass/volume)Ordered By: Billie Del Rio on 01-26-2025 Glucose [Mass/Vol] 75 mg/dL 70-99 [facility] Serum or plasma alanine brumfield otransferase (ALT) measurementOrdered By: Billie Del Rio on 01-26-2025 ALT [Catalytic activity/Vol] 16 U/L <47 [facility] Serum or plasma albumin lukas urement (mass/volume)Ordered By: Billie Del Rio on 01-26-2025 Albumin [Mass/Vol] 3.7 g/dL 3.4-4.8 [facility] Serum or plasma albumin/glob ulin mass ratioOrdered By: Billie Del Rio 01-26-2025 Albumin/Globulin [Mass ratio] 1.9 {ratio} 0.9-2.4 [facility] Serum or plasma alkaline simba sphatase measurementOrdered By: Billie Del Rio on 01-26-2025 ALP [Catalytic activity/Vol] 53 U/L 40-129 [facility] Serum or plasma calcium lukas urement (mass/volume)Ordered By: Billie Del Rio 01-26-2025 Calcium [Mass/Vol] 8.8 mg/dL 7.6-11.0 [facility] Serum or plasma urea nitroge n measurement (mass/volume)Ordered By: Billie Del Rio 01-26-2025 Urea nitrogen [Mass/Vol] 15 mg/dL 4-19 [facility] Sodium levelOrdered By: Billie Del Rio on 01-26-2025 Sodium [Moles/Vol] 143 mmol/L 133-145 [facility] Total proteinOrdered By: Marita radha Quang on 01-26-2025 Protein [Mass/Vol] 5.6 g/dL Low 5.9-8.4 [facility] White blood cell (WBC) count Ordered By: Billie Del Rio on 01-26-2025 WBC (Bld) [#/Vol] 5.0 10*3/uL 4.4-11.0 [facility] Pulmonary Visit Reporton Pulmonary Visit Report Normal [facility] Absolute lymphocyte countOrd ered By: Clement Lewis on 01-14-2025 Lymphocytes Auto (Unsp spec) [#/Vol] 1.66 10*3/uL 0.83-4.51 [facility] Absolute neutrophil countOrd ered By: Clement Lewis on 01-14-2025 Neutrophils (Bld) [#/Vol] 3.0 10*3/uL 2.0-7.7 [facility] Anion gap in Serum or Plasma Ordered By: Clement Lewis on 01-14-2025 Anion gap [Moles/Vol] 9 mmol/L 5-15 [facility] Automated lymphocyte count a s percentage of total leukocytesOrdered By: Clement Lewis on 01-14-2025 Lymphocytes/100 WBC Auto (Unsp spec) 27.8 % 19-41 [facility] BUN/creatinine ratioOrdered By: Clement Lewis on 01-14-2025 Urea nitrogen/Creatinine [Mass ratio] 14.8 mg/mg 10-20 [facility] Basophil percentageOrdered B y: Clement Lewis on 01-14-2025 Basophils/100 WBC (Bld) 1.5 % High 0-1 [facility] Bilirubin, totalOrdered By: Clement Lewis on 01-14-2025 Bilirubin [Mass/Vol] 0.63 mg/dL 0.00-1.30 [facility] CBC W/Diff, Automatedon Absolute Lymph 1.66 X10 3/uL Normal 0.83-4.51 [facility] Comment on above: Performed By: #### L 500.4050, L504.2610, L501.1400, L100.0100 ####[facility] [address] [place], [address] Absolute Neut 3.0 X10 3/uL Normal 2.0-7.7 [facility] Comment on above: Performed By: #### L 500.4050, L504.2610, L501.1400, L100.0100 ####[facility] [address] [place], [address] Basophils/100 WBC (Bld) 1.5 % High 0-1 [facility] Comment on above: Performed By: #### L 500.4050, L504.2610, L501.1400, L100.0100 ####[facility] [address] [place], [address] Eosinophils/100 WBC (Bld) 8.9 % High 0-5 [facility] Comment on above: Performed By: #### L 500.4050, L504.2610, L501.1400, L100.0100 ####[facility] [address] [place], [address] Erythrocyte distribution width (RBC) [Ratio] 13.9 % Normal 11.6-14.6 [facility] Comment on above: Performed By: #### L 500.4050, L504.2610, L501.1400, L100.0100 ####[facility] [facility] [address] [place], [address] Hematocrit (Bld) [Volume fraction] 40.5 % Normal 40-54 [facility] Comment on above: Performed By: #### L 500.4050, L504.2610, L501.1400, L100.0100 ####[facility] [address] [place], [address] Hemoglobin (Bld) [Mass/Vol] 12.6 g/dL Low 13.0-16.5 [facility] Comment on above: Performed By: #### L 500.4050, L504.2610, L501.1400, L100.0100 ####[facility] [address] [place], [address] IG% 0.500 Normal 0.0-0.9 [facility] Comment on above: Result Comment: IG% - Immature Granulocytes (promyelocytes, myelocytes andmetamyelocytes) > 1% indicates that a LEFT SHIFT is Present. Performed By: #### L 500.4050, L504.2610, L501.1400, L100.0100 ####[facility] [address] [place], [address] Lymphocytes/100 WBC (Bld) 27.8 % Normal 19-41 [facility] Comment on above: Performed By: #### L 500.4050, L504.2610, L501.1400, L100.0100 ####[facility] [address] [place], [address] MCH (RBC) [Entitic mass] 26.7 pg Low 27.0-32.0 [facility] Comment on above: Performed By: #### L 500.4050, L504.2610, L501.1400, L100.0100 ####[facility] [address] [place], [address] MCHC (RBC) [Mass/Vol] 31.1 g/dL Low 32-36 [facility] Comment on above: Performed By: #### L 500.4050, L504.2610, L501.1400, L100.0100 ####[facility] [address] [place], [address] MCV (RBC) [Entitic vol] 85.8 fL Normal 80-94 [facility] Comment on above: Performed By: #### L 500.4050, L504.2610, L501.1400, L100.0100 ####[facility] [address] [place], [address] Monocytes/100 WBC (Bld) 11.2 % High 0-10 [facility] Comment on above: Performed By: #### L 500.4050, L504.2610, L501.1400, L100.0100 ####[facility] [address] [place], [address] Neutrophils/100 WBC (Bld) 50.1 % Normal 47-70 [facility] Comment on above: Performed By: #### L 500.4050, L504.2610, L501.1400, L100.0100 ####[facility] [address] [place], [address] Nucleated RBC (Bld) [#/Vol] 0 10*3/uL Normal 0-5 [facility] Comment on above: Performed By: #### L 500.4050, L504.2610, L501.1400, L100.0100 ####[facility] [address] [place], [address] Platelet mean volume (Bld) [Entitic vol] 9.5 fL Normal 6.2-12.0 [facility] Comment on above: Performed By: #### L 500.4050, L504.2610, L501.1400, L100.0100 ####[facility] [address] [place], [address] Platelets (Bld) [#/Vol] 222 10*3/uL Normal 150-450 [facility] Comment on above: Performed By: #### L 500.4050, L504.2610, L501.1400, L100.0100 ####[facility] [address] [place], [address] RBC (Bld) [#/Vol] 4.72 10*6/uL Normal 4.6-6.2 [facility] Comment on above: Performed By: #### L 500.4050, L504.2610, L501.1400, L100.0100 ####[facility] [address] [place], [address] RDW SD 43.5 fl Normal 35.1-43.9 [facility] Comment on above: Performed By: #### L 500.4050, L504.2610, L501.1400, L100.0100 ####[facility] [address] [place], [address] WBC (Bld) [#/Vol] 6.0 10*3/uL Normal 4.4-11.0 [facility] Comment on above: Performed By: #### L 500.4050, L504.2610, L501.1400, L100.0100 ####[facility] [address] [place], [address] Carbon dioxide, total [Moles /volume] in Central venous bloodOrdered By: Clement Lewis on 01-14-2025 CO2 [Moles/Vol] 25.5 mmol/L 21.0-32.0 [facility] Chloride assayOrdered By: Sandy Lewis on 01-14-2025 Chloride [Moles/Vol] 107 mmol/L 98-108 [facility] Comprehensive Metabolic Prof ilon 01-14-2025 Albumin [Mass/Vol] 3.9 g/dL Normal 3.4-4.8 [facility] Comment on above: Performed By: #### L 500.4050, L504.2610, L501.1400, L100.0100 ####[facility] [address] [place], [address] Albumin/Globulin [Mass ratio] 1.9 {ratio} Normal 0.9-2.4 [facility] Comment on above: Performed By: #### L 500.4050, L504.2610, L501.1400, L100.0100 ####[facility] [address] [place], [address] ALK PHOS 60 U/L Normal 40-129 [facility] Comment on above: Performed By: #### L 500.4050, L504.2610, L501.1400, L100.0100 ####[facility] [address] [place], [address] ALT [Catalytic activity/Vol] 12 U/L Normal <=46 [facility] Comment on above: Performed By: #### L 500.4050, L504.2610, L501.1400, L100.0100 ####[facility] [address] [place], [address] AST [Catalytic activity/Vol] 21 U/L Normal <=37 [facility] Comment on above: Performed By: #### L 500.4050, L504.2610, L501.1400, L100.0100 ####[facility] [address] [place], [address] Bilirubin [Mass/Vol] 0.63 mg/dL Normal 0.00-1.30 [facility] Comment on above: Performed By: #### L 500.4050, L504.2610, L501.1400, L100.0100 ####[facility] [address] [place], [address] BUN/CRE 14.8 RATIO Normal 10-20 [facility] Comment on above: Performed By: #### L 500.4050, L504.2610, L501.1400, L100.0100 ####[facility] [address] [place], [address] Calcium [Mass/Vol] 9.3 mg/dL Normal 7.6-11.0 [facility] Comment on above: Performed By: #### L 500.4050, L504.2610, L501.1400, L100.0100 ####[facility] [address] [place], [address] Chloride [Moles/Vol] 107 mmol/L Normal 98-108 [facility] Comment on above: Performed By: #### L 500.4050, L504.2610, L501.1400, L100.0100 ####[facility] [address] [place], [address] CO2 [Moles/Vol] 25.5 mmol/L Normal 21.0-32.0 [facility] Comment on above: Performed By: #### L 500.4050, L504.2610, L501.1400, L100.0100 ####[facility] [address] [place], [address] Creatinine [Mass/Vol] 1.00 mg/dL Normal 0.70-1.20 [facility] Comment on above: Performed By: #### L 500.4050, L504.2610, L501.1400, L100.0100 ####[facility] [address] [place], [address] ECRCL 54.82 ml/min Normal 50-250 [facility] Comment on above: Performed By: #### L 500.4050, L504.2610, L501.1400, L100.0100 ####[facility] [address] [place], [address] GAP 9 Normal 5-15 [facility] Comment on above: Performed By: #### L 500.4050, L504.2610, L501.1400, L100.0100 ####[facility] [address] [place], [address] GFR/1.73 sq M.predicted among non-blacks MDRD (S/P/Bld) [Vol rate/Area] 78 mL/min/{1.73_m2} Normal >60 [facility] Comment on above: Result Comment: mL/m in/1.73m2 CKD-EPI Creatinine Equation (2020) Performed By: #### L 500.4050, L504.2610, L501.1400, L100.0100 ####[facility] [address] [place], [address] Globulin (S) [Mass/Vol] 2.0 g/dL Low 2.2-4.2 [facility] Comment on above: Performed By: #### L 500.4050, L504.2610, L501.1400, L100.0100 ####[facility] [address] [place], [address] Glucose [Mass/Vol] 86 mg/dL Normal 70-99 [facility] Comment on above: Performed By: #### L 500.4050, L504.2610, L501.1400, L100.0100 ####[facility] [address] [place], [address] Potassium [Moles/Vol] 3.8 mmol/L Normal 3.3-5.1 [facility] Comment on above: Performed By: #### L 500.4050, L504.2610, L501.1400, L100.0100 ####[facility] [address] [place], [address] Sodium [Moles/Vol] 141 mmol/L Normal 133-145 [facility] Comment on above: Performed By: #### L 500.4050, L504.2610, L501.1400, L100.0100 ####[facility] [address] [place], [address] T PROT 5.9 g/dL Normal 5.9-8.4 [facility] Comment on above: Performed By: #### L 500.4050, L504.2610, L501.1400, L100.0100 ####[facility] [address] [place], [address] Urea nitrogen [Mass/Vol] 15 mg/dL Normal 4-19 [facility] Comment on above: Performed By: #### L 500.4050, L504.2610, L501.1400, L100.0100 ####[facility] [address] [place], [address] Eosinophil percentageOrdered By: Clement Lewis on 01-14-2025 Eosinophils/100 WBC (Bld) 8.9 % High 0-5 [facility] Erythrocyte distribution wid th ratioOrdered By: Clement Lewis on 01-14-2025 Erythrocyte distribution width (RBC) [Ratio] 13.9 % 11.6-14.6 [facility] Erythrocyte distribution wid th standard deviationOrdered By: Clement Lewis on 01-14-2025 Erythrocyte distribution width (RBC) [Ratio] 43.5 fl 35.1-43.9 [facility] Glomerular filtration rate ( GFR) estimation/1.73 sq m using serum, plasma, or whole bOrdered By: Clement Lewis on 01-14-2025 GFR/1.73 sq M.predicted among non-blacks MDRD (S/P/Bld) [Vol rate/Area] 78 mL/min/{1.73_m2} >60 [facility] Comment on above: mL/min/1.73m2 CKD-EP I Creatinine Equation (2020) Hematocrit Auto (Bld) [Volum e fraction]Ordered By: Clement Lewis on 01-14-2025 Hematocrit (Bld) [Volume fraction] 40.5 % 40-54 [facility] Hemoglobin measurementOrdere d By: Clement Lewis on 01-14-2025 Hemoglobin (Bld) [Mass/Vol] 12.6 g/dL Low 13.0-16.5 [facility] Immature granulocytes/100 WB C Auto (Bld)Ordered By: Clement Lewis on 01-14-2025 Immature granulocytes/100 WBC (Bld) 0.500 % 0.0-0.9 [facility] Comment on above: IG% - Immature Granu locytes (promyelocytes, myelocytes and metamyelocytes) > 1% indicates that a LEFT SHIFT is Present. LDHon 01-14-2025 LDH 197 U/L Normal 87-241 [facility] Comment on above: Order Comment: 1 Performed By: #### L 500.4050, L504.2610, L501.1400, L100.0100 ####[facility] [address] [place], [address] Laboratory - Chemistry and C hemistry - challengeOrdered By: Clement Lewis on 01-14-2025 AST [Catalytic activity/Vol] 21 U/L <38 [facility] Lactate dehydrogenase (LDH) measurementOrdered By: Clement Lewis on 01-14-2025 LDH [Catalytic activity/Vol] 197 U/L 87-241 [facility] MCV (mean corpuscular volume ) determinationOrdered By: Clement Lewis on 01-14-2025 MCV (RBC) [Entitic vol] 85.8 fL 80-94 [facility] Mean corpuscular hemoglobin (MCH) determinationOrdered By: Clement Lewis on 01-14-2025 MCH (RBC) [Entitic mass] 26.7 pg Low 27.0-32.0 [facility] Mean corpuscular hemoglobin concentration (MCHC) determinationOrdered By: Clement Lewis on 01-14-2025 MCHC (RBC) [Mass/Vol] 31.1 g/dL Low 32-36 [facility] Mean platelet volume determi nationOrdered By: Clement Lewis on 01-14-2025 Platelet mean volume (Bld) [Entitic vol] 9.5 fL 6.2-12.0 [facility] Monocyte percentageOrdered B y: Clement Lewis on 01-14-2025 Monocytes/100 WBC (Bld) 11.2 % High 0-10 [facility] Neutrophil percentageOrdered By: Clement Lewis on 01-14-2025 Neutrophils/100 WBC (Bld) 50.1 % 47-70 [facility] Nucleated red blood cell per centageOrdered By: Clement Lewis on 01-14-2025 Nucleated RBC/100 WBC (Bld) [Ratio] 0 % 0-5 [facility] Oncology Visit Reporton Oncology Visit Report Normal [facility] Platelet countOrdered By: Sandy Lewis on 01-14-2025 Platelets (Bld) [#/Vol] 222 10*3/uL 150-450 [facility] Potassium measurement (mass/ volume)Ordered By: Clement Lewis on 01-14-2025 Potassium (Unsp spec) [Mass/Vol] 3.8 mmol/L 3.3-5.1 [facility] RBC Auto (Bld) [#/Vol]Ordere d By: Clement Lewis on 01-14-2025 RBC (Bld) [#/Vol] 4.72 10*6/uL 4.6-6.2 [facility] Serum creatinine measurement (mass/volume)Ordered By: Clement Lewis on 01-14-2025 Creatinine [Mass/Vol] 1.00 mg/dL 0.70-1.20 [facility] Serum globulin measurementOr dered By: Clement Lewis on 01-14-2025 Globulin (S) [Mass/Vol] 2.0 g/dL Low 2.2-4.2 [facility] Serum glucose measurement (m ass/volume)Ordered By: Clement Lewis on 01-14-2025 Glucose [Mass/Vol] 86 mg/dL 70-99 [facility] Serum or plasma alanine brumfield otransferase (ALT) measurementOrdered By: Clement Lewis on 01-14-2025 ALT [Catalytic activity/Vol] 12 U/L <47 [facility] Serum or plasma albumin lukas urement (mass/volume)Ordered By: Clement Lewis on 01-14-2025 Albumin [Mass/Vol] 3.9 g/dL 3.4-4.8 [facility] Serum or plasma albumin/glob ulin mass ratioOrdered By: Clement Lewis on 01-14-2025 Albumin/Globulin [Mass ratio] 1.9 {ratio} 0.9-2.4 [facility] Serum or plasma alkaline simba sphatase measurementOrdered By: Clement Lewis on 01-14-2025 ALP [Catalytic activity/Vol] 60 U/L 40-129 [facility] Serum or plasma calcium lukas urement (mass/volume)Ordered By: Clement Lewis on 01-14-2025 Calcium [Mass/Vol] 9.3 mg/dL 7.6-11.0 [facility] Serum or plasma urea nitroge n measurement (mass/volume)Ordered By: Clement Lewis on 01-14-2025 Urea nitrogen [Mass/Vol] 15 mg/dL 4-19 [facility] Serum or plasma uric acid me asurement (mass/volume)Ordered By: Clement Lewis on 01-14-2025 Urate [Mass/Vol] 3.0 mg/dL Low 3.5-7.2 [facility] Comment on above: The drugs N-Acetylcy steine and Metamizole may falsely depress this assay. Sodium levelOrdered By: Kameron Lewis on 01-14-2025 Sodium [Moles/Vol] 141 mmol/L 133-145 [facility] Total proteinOrdered By: Sekou Lewis on 01-14-2025 Protein [Mass/Vol] 5.9 g/dL 5.9-8.4 [facility] Uric Acidon 01-14-2025 URIC 3.0 mg/dL Low 3.5-7.2 [facility] Comment on above: Result Comment: The drugs N-Acetylcysteine and Metamizole may falselydepress this assay. Performed By: #### L 500.4050, L504.2610, L501.1400, L100.0100 ####[facility] [address] [place], [address] White blood cell (WBC) count Ordered By: Clement Lewis on 01-14-2025 WBC (Bld) [#/Vol] 6.0 10*3/uL 4.4-11.0 [facility] Absolute lymphocyte countOrd ered By: Clement Lewis on 12-31-2024 Lymphocytes Auto (Unsp spec) [#/Vol] 1.44 10*3/uL 0.83-4.51 [facility] Absolute neutrophil countOrd ered By: Clement Lewis on 12-31-2024 Neutrophils (Bld) [#/Vol] 3.3 10*3/uL 2.0-7.7 [facility] Anion gap in Serum or Plasma Ordered By: Clement Lewis on 12-31-2024 Anion gap [Moles/Vol] 10 mmol/L 09-25 [facility] Comment on above: Previous reported re sult: 10 Edited by: ARELIS on 12/31/24:0924 AMENDED REPORT 12/31/24923 GAP previously reported as: 10 Automated lymphocyte count a s percentage of total leukocytesOrdered By: Clement Lewis on 12-31-2024 Lymphocytes/100 WBC Auto (Unsp spec) 24.0 % [facility] BUN/creatinine ratioOrdered By: Clement Lewis on 12-31-2024 Urea nitrogen/Creatinine [Mass ratio] 11.3 mg/mg 03-02 [facility] Comment on above: Previous reported re sult: 11.6 RATIOEdited by: AUTOINS on 12/31/24:0924 AMENDED REPORT 12/31/24923 BUN/CRE previously reported as: 11.6 RATIO Basophil percentageOrdered B y: Clement Lewis on 12-31-2024 Basophils/100 WBC (Bld) 1.3 % High 0- [facility] Bilirubin, totalOrdered By: Clement Lewis on 12-31-2024 Bilirubin [Mass/Vol] 0.53 mg/dL 0.00-1.30 [facility] Comment on above: Previous reported re sult: 0.54 mg/dLEdited by: AUTOINS on 12/31/24:923 AMENDED REPORT 12/31/24923 T BILI previously reported as: 0.54 mg/dL CBC W/Diff, Automatedon 12-13 Absolute Lymph 1.44 X10 3/uL Normal 0.83-4.51 [facility] Comment on above: Performed By: #### L 501.1400, L100.0100, L500.4050, L504.2610 ####[facility] [address] [place], [address] Absolute Neut 3.3 X10 3/uL Normal 2.0-7.7 [facility] Comment on above: Performed By: #### L 501.1400, L100.0100, L500.4050, L504.2610 ####[facility] [address] [place], [address] Basophils/100 WBC (Bld) 1.3 % High 0-1 [facility] Comment on above: Performed By: #### L 501.1400, L100.0100, L500.4050, L504.2610 ####[facility] [address] [place], [address] Eosinophils/100 WBC (Bld) 9.8 % High 0-5 [facility] Comment on above: Performed By: #### L 501.1400, L100.0100, L500.4050, L504.2610 ####[facility] [address] [place], [address] Erythrocyte distribution width (RBC) [Ratio] 13.9 % Normal 11.6-14.6 [facility] Comment on above: Performed By: #### L 501.1400, L100.0100, L500.4050, L504.2610 ####[facility] [address] [place], [address] Hematocrit (Bld) [Volume fraction] 37.1 % Low 40-54 [facility] Comment on above: Performed By: #### L 501.1400, L100.0100, L500.4050, L504.2610 ####[facility] [address] [place], [address] Hemoglobin (Bld) [Mass/Vol] 11.4 g/dL Low 13.0-16.5 [facility] Comment on above: Performed By: #### L 501.1400, L100.0100, L500.4050, L504.2610 ####[facility] [address] [place], [address] IG% 0.500 Normal 0.0-0.9 [facility] Comment on above: Result Comment: IG% - Immature Granulocytes (promyelocytes, myelocytes andmetamyelocytes) > 1% indicates that a LEFT SHIFT is Present. Performed By: #### L 501.1400, L100.0100, L500.4050, L504.2610 ####[facility] [address] [place], [address] Lymphocytes/100 WBC (Bld) 24.0 % Normal 19-41 [facility] Comment on above: Performed By: #### L 501.1400, L100.0100, L500.4050, L504.2610 ####[facility] [address] [place], [address] MCH (RBC) [Entitic mass] 26.6 pg Low 27.0-32.0 [facility] Comment on above: Performed By: #### L 501.1400, L100.0100, L500.4050, L504.2610 ####[facility] [address] [place], [address] MCHC (RBC) [Mass/Vol] 30.7 g/dL Low 32-36 [facility] Comment on above: Performed By: #### L 501.1400, L100.0100, L500.4050, L504.2610 ####[facility] [address] [place], [address] MCV (RBC) [Entitic vol] 86.5 fL Normal 80-94 [facility] Comment on above: Performed By: #### L 501.1400, L100.0100, L500.4050, L504.2610 ####[facility] [address] [place], [address] Monocytes/100 WBC (Bld) 9.8 % Normal 0-10 [facility] Comment on above: Performed By: #### L 501.1400, L100.0100, L500.4050, L504.2610 ####[facility] [address] [place], [address] Neutrophils/100 WBC (Bld) 54.6 % Normal 47-70 [facility] Comment on above: Performed By: #### L 501.1400, L100.0100, L500.4050, L504.2610 ####[facility] [address] [place], [address] Nucleated RBC (Bld) [#/Vol] 0 10*3/uL Normal 0-5 [facility] Comment on above: Performed By: #### L 501.1400, L100.0100, L500.4050, L504.2610 ####[facility] [address] [place], [address] Platelet mean volume (Bld) [Entitic vol] 8.5 fL Normal 6.2-12.0 [facility] Comment on above: Performed By: #### L 501.1400, L100.0100, L500.4050, L504.2610 ####[facility] [address] [place], [address] Platelets (Bld) [#/Vol] 170 10*3/uL Normal 150-450 [facility] Comment on above: Performed By: #### L 501.1400, L100.0100, L500.4050, L504.2610 ####[facility] [address] [place], [address] RBC (Bld) [#/Vol] 4.29 10*6/uL Low 4.6-6.2 [facility] Comment on above: Performed By: #### L 501.1400, L100.0100, L500.4050, L504.2610 ####[facility] [address] [place], [address] RDW SD 43.2 fl Normal 35.1-43.9 [facility] Comment on above: Performed By: #### L 501.1400, L100.0100, L500.4050, L504.2610 ####[facility] [address] [place], [address] WBC (Bld) [#/Vol] 6.0 10*3/uL Normal 4.4-11.0 [facility] Comment on above: Performed By: #### L 501.1400, L100.0100, L500.4050, L504.2610 ####[facility] [address] [place], [place], [id number] Carbon dioxide, total [Moles /volume] in Central venous bloodOrdered By: Clement Lewis on 12-31-2024 CO2 [Moles/Vol] 24.9 mmol/L 21.0-32.0 [facility] Comment on above: Previous reported re sult: 25.0 mmol/LEdited by: AUTOINS on 12/31/24:923 AMENDED REPORT 12/31/24923 CO2 previously reported as: 25.0 mmol/L Chloride assayOrdered By: Sandy Lewis on 12-31-2024 Chloride [Moles/Vol] 109 mmol/L High 98-108 [facility] Comment on above: Previous reported re sult: 108 mmol/LEdited by: AUTOINS on 12/31/24:923 AMENDED REPORT 12/31/24923 CL previously reported as: 108 mmol/L Comprehensive Metabolic Prof ilon 12-31-2024 Albumin [Mass/Vol] 3.5 g/dL Normal 3.4-4.8 [facility] Comment on above: Result Comment: AMENDED REPORT 12/31/24923 ALB previously reported as: 3.6 g/dL Performed By: #### L 501.1400, L100.0100, L500.4050, L504.2610 ####[facility] [address] [place], [place], [address] Albumin/Globulin [Mass ratio] 1.5 {ratio} Normal 0.9-2.4 [facility] Comment on above: Result Comment: AMENDED REPORT 12/31/24923 A/G previously reported as: 1.8 RATIO Performed By: #### L 501.1400, L100.0100, L500.4050, L504.2610 ####[facility] [address] [place], [address] ALK PHOS 56 U/L Normal 40-129 [facility] Comment on above: Result Comment: AMENDED REPORT 12/31/24923 ALK P previously reported as: 54 U/L Performed By: #### L 501.1400, L100.0100, L500.4050, L504.2610 ####[facility] [address] [place], [address] ALT [Catalytic activity/Vol] 13 U/L Normal <=46 [facility] Comment on above: Result Comment: AMENDED REPORT 12/31/24923 ALT previously reported as: 15 U/L Performed By: #### L 501.1400, L100.0100, L500.4050, L504.2610 ####[facility] [address] [place], [address] AST [Catalytic activity/Vol] 22 U/L Normal <=37 [facility] Comment on above: Result Comment: AMENDED REPORT 12/31/24923 AST previously reported as: 21 U/L Performed By: #### L 501.1400, L100.0100, L500.4050, L504.2610 ####[facility] [address] [place], [address] Bilirubin [Mass/Vol] 0.53 mg/dL Normal 0.00-1.30 [facility] Comment on above: Result Comment: AMENDED REPORT 12/31/24923 T BILI previously reported as: 0.54 mg/dL Performed By: #### L 501.1400, L100.0100, L500.4050, L504.2610 ####[facility] [address] [place], [address] BUN/CRE 11.3 RATIO Normal 10-20 [facility] Comment on above: Result Comment: AMENDED REPORT 12/31/24923 BUN/CRE previously reported as: 11.6 RATIO Performed By: #### L 501.1400, L100.0100, L500.4050, L504.2610 ####[facility] [address] [place], [address] Calcium [Mass/Vol] 9.3 mg/dL Normal 7.6-11.0 [facility] Comment on above: Result Comment: AMENDED REPORT 12/31/24923 CA previously reported as: 9.0 mg/dL Performed By: #### L 501.1400, L100.0100, L500.4050, L504.2610 ####[facility] [address] [place], [address] Chloride [Moles/Vol] 109 mmol/L High 98-108 [facility] Comment on above: Result Comment: AMENDED REPORT 12/31/24923 CL previously reported as: 108 mmol/L Performed By: #### L 501.1400, L100.0100, L500.4050, L504.2610 ####[facility] [address] [place], [address] CO2 [Moles/Vol] 24.9 mmol/L Normal 21.0-32.0 [facility] Comment on above: Result Comment: AMENDED REPORT 12/31/24923 CO2 previously reported as: 25.0 mmol/L Performed By: #### L 501.1400, L100.0100, L500.4050, L504.2610 ####[facility] [address] [place], [address] Creatinine [Mass/Vol] 1.04 mg/dL Normal 0.70-1.20 [facility] Comment on above: Result Comment: AMENDED REPORT 12/31/24923 CREAT,SERUM previously reported as: 1.03 mg/dL Performed By: #### L 501.1400, L100.0100, L500.4050, L504.2610 ####[facility] [address] [place], [address] ECRCL 53.14 ml/min Normal 50-250 [facility] Comment on above: Result Comment: AMENDED REPORT 12/31/24923 Estimated CRCL previously reported as: 53.66 ml/min Performed By: #### L 501.1400, L100.0100, L500.4050, L504.2610 ####[facility] [address] [place], [address] GAP 10 Normal 5-15 [facility] Comment on above: Result Comment: AMENDED REPORT 12/31/24923 GAP previously reported as: 10 Performed By: #### L 501.1400, L100.0100, L500.4050, L504.2610 ####[facility] [address] [place], [address] Globulin (S) [Mass/Vol] 2.3 g/dL Normal 2.2-4.2 [facility] Comment on above: Result Comment: AMENDED REPORT 12/31/24923 GLOB previously reported as: 2.0 L g/dL Performed By: #### L 501.1400, L100.0100, L500.4050, L504.2610 ####[facility] [address] [place], [address] Glucose [Mass/Vol] 74 mg/dL Normal 70-99 [facility] Comment on above: Performed By: #### L 501.1400, L100.0100, L500.4050, L504.2610 ####[facility] [address] [place], [address] Potassium [Moles/Vol] 3.9 mmol/L Normal 3.3-5.1 [facility] Comment on above: Performed By: #### L 501.1400, L100.0100, L500.4050, L504.2610 ####[facility] [address] [place], [address] Sodium [Moles/Vol] 144 mmol/L Normal 133-145 [facility] Comment on above: Result Comment: AMENDED REPORT 12/31/24923 NA previously reported as: 143 mmol/L Performed By: #### L 501.1400, L100.0100, L500.4050, L504.2610 ####[facility] [address] [place], [address] T PROT 5.8 g/dL Low 5.9-8.4 [facility] Comment on above: Result Comment: AMENDED REPORT 12/31/24923 T PROT previously reported as: 5.6 L g/dL Performed By: #### L 501.1400, L100.0100, L500.4050, L504.2610 ####[facility] [address] [place], [address] Urea nitrogen [Mass/Vol] 12 mg/dL Normal 4-19 [facility] Comment on above: Performed By: #### L 501.1400, L100.0100, L500.4050, L504.2610 ####[facility] [address] [place], [address] Eosinophil percentageOrdered By: Clement Lewis on 12-31-2024 Eosinophils/100 WBC (Bld) 9.8 % High 0-5 [facility] Erythrocyte distribution wid th ratioOrdered By: Clement Lewis on 12-31-2024 Erythrocyte distribution width (RBC) [Ratio] 13.9 % 11.6-14.6 [facility] Erythrocyte distribution wid th standard deviationOrdered By: Clement Lewis on 12-31-2024 Erythrocyte distribution width (RBC) [Ratio] 43.2 fl 35.1-43.9 [facility] Glomerular filtration rate ( GFR) estimation/1.73 sq m using serum, plasma, or whole bOrdered By: Clement Lewis on 12-31-2024 GFR/1.73 sq M.predicted among non-blacks MDRD (S/P/Bld) [Vol rate/Area] 75 mL/min/{1.73_m2} >60 [facility] Comment on above: mL/min/1.73m2 CKD-EP I Creatinine Equation (2020) Hematocrit Auto (Bld) [Volum e fraction]Ordered By: Clement Lewis on 12-31-2024 Hematocrit (Bld) [Volume fraction] 37.1 % Low 40-54 [facility] Hemoglobin measurementOrdere d By: Clement Lewis on 12-31-2024 Hemoglobin (Bld) [Mass/Vol] 11.4 g/dL Low 13.0-16.5 [facility] Immature granulocytes/100 WB C Auto (Bld)Ordered By: Clement Lewis on 12-31-2024 Immature granulocytes/100 WBC (Bld) 0.500 % 0.0-0.9 [facility] Comment on above: IG% - Immature Granu locytes (promyelocytes, myelocytes and metamyelocytes) > 1% indicates that a LEFT SHIFT is Present. LDHon 12-31-2024 LDH 177 U/L Normal 87-241 [facility] Comment on above: Order Comment: 1 Performed By: #### L 501.1400, L100.0100, L500.4050, L504.2610 ####[facility] [address] [place], [address] Laboratory - Chemistry and C hemistry - challengeOrdered By: Clement Lewis on 12-31-2024 AST [Catalytic activity/Vol] 22 U/L <38 [facility] Comment on above: Previous reported re sult: 21 U/LEdited by: ARELIS on 12/31/24:0924 AMENDED REPORT 12/31/24 09 AST previously reported as: 21 U/L Lactate dehydrogenase (LDH) measurementOrdered By: Clement Lewis on 12-31-2024 LDH [Catalytic activity/Vol] 177 U/L 87-241 [facility] MCV (mean corpuscular volume ) determinationOrdered By: Clement Lewis on 12-31-2024 MCV (RBC) [Entitic vol] 86.5 fL 80-94 [facility] Mean corpuscular hemoglobin (MCH) determinationOrdered By: Clement Lewis on 12-31-2024 MCH (RBC) [Entitic mass] 26.6 pg Low 27.0-32.0 [facility] Mean corpuscular hemoglobin concentration (MCHC) determinationOrdered By: Clement Lewis on 12-31-2024 MCHC (RBC) [Mass/Vol] 30.7 g/dL Low 32-36 [facility] Mean platelet volume determi nationOrdered By: Clement Lewis on 12-31-2024 Platelet mean volume (Bld) [Entitic vol] 8.5 fL 6.2-12.0 [facility] Monocyte percentageOrdered B y: Clement Lewis on 12-31-2024 Monocytes/100 WBC (Bld) 9.8 % 0-10 [facility] Neutrophil percentageOrdered By: Clement Lewis on 12-31-2024 Neutrophils/100 WBC (Bld) 54.6 % 47-70 [facility] Nucleated red blood cell per centageOrdered By: Clement Lewis on 12-31-2024 Nucleated RBC/100 WBC (Bld) [Ratio] 0 % 0-5 [facility] Oncology Visit Reporton 08-2 0 Oncology Visit Report Normal [facility] Platelet countOrdered By: Sandy Lewis on 12-31-2024 Platelets (Bld) [#/Vol] 170 10*3/uL 150-450 [facility] Potassium measurement (mass/ volume)Ordered By: Clement Lewis on 12-31-2024 Potassium (Unsp spec) [Mass/Vol] 3.9 mmol/L 3.3-5.1 [facility] RBC Auto (Bld) [#/Vol]Ordere d By: Clement Lewis on 12-31-2024 RBC (Bld) [#/Vol] 4.29 10*6/uL Low 4.6-6.2 [facility] Serum creatinine measurement (mass/volume)Ordered By: Clement Lewis on 12-31-2024 Creatinine [Mass/Vol] 1.04 mg/dL 0.70-1.20 [facility] Comment on above: Previous reported re sult: 1.03 mg/dLEdited by: ARELIS on 12/31/24:923 AMENDED REPORT 12/31/24923 CREAT,SERUM previously reported as: 1.03 mg/dL Serum globulin measurementOr dered By: Clement Lewis on 12-31-2024 Globulin (S) [Mass/Vol] 2.3 g/dL 2.2-4.2 [facility] Comment on above: Previous reported re sult: 2.0 g/dLEdited by: ARELIS on 12/31/24:923 AMENDED REPORT 12/31/24923 GLOB previously reported as: 2.0 L g/dL Serum glucose measurement (m ass/volume)Ordered By: Clement Lewis on 12-31-2024 Glucose [Mass/Vol] 74 mg/dL 70-99 [facility] Serum or plasma alanine brumfield otransferase (ALT) measurementOrdered By: Clement Lewis on 12-31-2024 ALT [Catalytic activity/Vol] 13 U/L <47 [facility] Comment on above: Previous reported re sult: 15 U/LEdited by: ARELIS on 12/31/24:923 AMENDED REPORT 12/31/24923 ALT previously reported as: 15 U/L Serum or plasma albumin lukas urement (mass/volume)Ordered By: Clement Lewis on 12-31-2024 Albumin [Mass/Vol] 3.5 g/dL 3.4-4.8 [facility] Comment on above: Previous reported re sult: 3.6 g/dLEdited by: ARELIS on 12/31/24:923 AMENDED REPORT 12/31/24923 ALB previously reported as: 3.6 g/dL Serum or plasma albumin/glob ulin mass ratioOrdered By: Clement Lewis on 12-31-2024 Albumin/Globulin [Mass ratio] 1.5 {ratio} 0.9-2.4 [facility] Comment on above: Previous reported re sult: 1.8 RATIOEdited by: ARELIS on 12/31/24:923 AMENDED REPORT 12/31/24923 A/G previously reported as: 1.8 RATIO Serum or plasma alkaline simba sphatase measurementOrdered By: Clement Lewis on 12-31-2024 ALP [Catalytic activity/Vol] 56 U/L 40-129 [facility] Comment on above: Previous reported re sult: 54 U/LEdited by: LESLYS on 12/31/24:923 AMENDED REPORT 12/31/24923 ALK P previously reported as: 54 U/L Serum or plasma calcium lukas urement (mass/volume)Ordered By: Clement Lewis on 12-31-2024 Calcium [Mass/Vol] 9.3 mg/dL 7.6-11.0 [facility] Comment on above: Previous reported re sult: 9.0 mg/dLEdited by: LESLYS on 12/31/24:923 AMENDED REPORT 12/31/24923 CA previously reported as: 9.0 mg/dL Serum or plasma urea nitroge n measurement (mass/volume)Ordered By: Clement Lewis on 12-31-2024 Urea nitrogen [Mass/Vol] 12 mg/dL 4-19 [facility] Serum or plasma uric acid me asurement (mass/volume)Ordered By: Clement Lewis on 12-31-2024 Urate [Mass/Vol] 3.3 mg/dL Low 3.5-7.2 [facility] Comment on above: The drugs N-Acetylcy steine and Metamizole may falsely depress this assay. Sodium levelOrdered By: Kameron Lewis on 12-31-2024 Sodium [Moles/Vol] 144 mmol/L 133-145 [facility] Comment on above: Previous reported re sult: 143 mmol/LEdited by: ARELIS on 12/31/24:923 AMENDED REPORT 12/31/24923 NA previously reported as: 143 mmol/L Total proteinOrdered By: Sekou Lewis on 12-31-2024 Protein [Mass/Vol] 5.8 g/dL Low 5.9-8.4 [facility] Comment on above: Previous reported re sult: 5.6 g/dLEdited by: LESLYS on 12/31/24:923 AMENDED REPORT 12/31/24923 T PROT previously reported as: 5.6 L g/dL Uric Acidon 12-31-2024 URIC 3.3 mg/dL Low 3.5-7.2 [facility] Comment on above: Result Comment: The drugs N-Acetylcysteine and Metamizole may falselydepress this assay. Performed By: #### L 501.1400, L100.0100, L500.4050, L504.2610 ####[facility] [address] [place], [place], [address] White blood cell (WBC) count Ordered By: Clement Lewis on 12-31-2024 WBC (Bld) [#/Vol] 6.0 10*3/uL 4.4-11.0 [facility] CBC (NO DIFF)on 12-26-2024 CBC panel Auto (Bld) Normal [facility] Comment on above: Result Comment: CBC( WITHOUT DIFFERENTIAL) Performed By: #### 2 [address]0930 #### [address] [address] Erythrocyte distribution width (RBC) [Ratio] 14.9 % Normal 12.0 - 15.6 [facility] Comment on above: Performed By: #### 2 29427 #### [facility],[address] [place] [address] Hematocrit (Bld) [Volume fraction] 36.9 % Low 40.0 - 52.0 [facility] Comment on above: Performed By: #### 2 97849 #### [facility],[address] [place] [address] Hemoglobin (Bld) [Mass/Vol] 12.3 g/dL Low 13.0 - 17.5 [facility] Comment on above: Performed By: #### 2 12429 #### [facility],[address] [place] [address] 26317 MCH (RBC) [Entitic mass] 28 pg Normal 27 - 33 [facility] Comment on above: Performed By: #### 2 24722 #### [address] [address] MCHC 33 X10 3 Normal 32 - 36 [facility] Comment on above: Performed By: #### 2 06394 #### [facility],[address] [place] [address] 65192 MCV (RBC) [Entitic vol] 83 fL Normal 81 - 98 [facility] Comment on above: Performed By: #### 2 31047 #### [facility],[address] [place] [address]109 PLATELET 129 x10EE3/UL Low 150 - 450 [facility] Comment on above: Performed By: #### 2 95193 #### [facility],[address] [place] [address] 42542 Platelet mean volume (Bld) [Entitic vol] 7.7 fL Normal 6.4 - 10.5 [facility] Comment on above: Performed By: #### 2 41187 #### [facility],[address] [place] [address] 19820 RBC 4.45 x 10EE6/UL Low 4.50 - 6.00 [facility] Comment on above: Performed By: #### 2 27967 #### [facility],[address] [place] [address] 22831 WBC 6.2 x 10EE3/UL Normal 4.5 - 10.8 [facility] Comment on above: Performed By: #### 2 01722 #### [facility],[address] [place] [address] 94282 CMP with eGFRon 12-26-2024 AGE 79 years Normal [facility] Comment on above: Performed By: #### 2 34535 #### [facility],[address] [place] [address] 61592 Albumin [Mass/Vol] 3.1 g/dL Low 3.4 - 5.0 [facility] Comment on above: Performed By: #### 2 76688 #### [facility],[address] [place] [address] 14621 Albumin/Globulin [Mass ratio] 1.1 {ratio} Normal 0.9 - 1.6 [facility] Comment on above: Performed By: #### 2 71696 #### [facility],[address] [place] [address] 25850 ALK PHOS 52 U/L Normal 46 - 116 [facility] Comment on above: Performed By: #### 2 34835 #### [facility],[address] [place] [address] 37372 ALT [Catalytic activity/Vol] 15 U/L Low 16 - 63 [facility] Comment on above: Performed By: #### 2 63305 #### [facility],[address] [place] [address]888 Anion gap [Moles/Vol] 10 mmol/L Normal 10 - 20 [facility] Comment on above: Performed By: #### 2 51338 #### [facility],[address] [place] [address] 23215 AST [Catalytic activity/Vol] 18 U/L Normal 15 - 37 [facility] Comment on above: Performed By: #### 2 00067 #### [facility],[address] [place] [address] 47359 B/C RATIO 13 ratio Normal 0 - 30 [facility] Comment on above: Performed By: #### 2 36505 #### [facility],[address] [place] [address] 86563 Bilirubin [Mass/Vol] 1.4 mg/dL High 0.2 - 1.0 [facility] Comment on above: Performed By: #### 2 62604 #### [facility],[address] [place] [address] 11516 Calcium [Mass/Vol] 8.6 mg/dL Normal 8.5 - 10.1 [facility] Comment on above: Performed By: #### 2 68606 #### [facility],[address] [place] [address] 12645 Chloride [Moles/Vol] 103 mmol/L Normal 98 - 107 [facility] Comment on above: Performed By: #### 2 56389 #### [facility],[address] [place], [place] [address] CMP with eGFR Normal [facility] Comment on above: Result Comment: COMP REHENSIVE METABOLIC PANEL Performed By: #### 2 98248 #### [facility],[address] [place] [address] CO2 [Moles/Vol] 28.1 mmol/L Normal 21.0 - 32.0 [facility] Comment on above: Performed By: #### 2 93235 #### [place] [address] Creatinine [Mass/Vol] 0.98 mg/dL Normal 0.70 - 1.30 [facility] Comment on above: Performed By: #### 2 18570 #### [facility],[address] [place] [address] GFR/1.73 sq M.predicted among non-blacks MDRD (S/P/Bld) [Vol rate/Area] mL/min/{1.73_m2} Normal 60 - 999 [facility] Comment on above: Performed By: #### 2 43461 #### [place] [address] Result Comment: ACCO RDING TO THE NATIONAL KIDNEY DISEASE EDUCATION PROGRAM(NKDE), A NORMAL eGFR IS A VALUE GREATER THAN OR EQUAL TO 60 ML/MIN/1.73 SQ METERS. CHRONIC KIDNEY DISEASE: <60mL/MIN/1.73 SQ METERS KIDNEY FAILURE: <15mL/MIN/1.73 SQ METERS THIS TEST SHOULD ONLY BE USED FOR PATIENTS 18 YEARS OF AGE AND OLDER. Globulin (S) [Mass/Vol] 2.7 g/dL Normal 1.5 - 3.8 [facility] Comment on above: Performed By: #### 2 38472 #### [place] [address] Glucose [Mass/Vol] 95 mg/dL Normal 74 - 106 [facility] Comment on above: Performed By: #### 2 37324 #### [facility],[address] [place] [address] Potassium [Moles/Vol] 4.2 mmol/L Normal 3.5 - 5.1 [facility] Comment on above: Performed By: #### 2 31245 #### [facility],[address] [place] [address] 27151 Protein [Mass/Vol] 5.8 g/dL Low 6.4 - 8.2 [facility] Comment on above: Performed By: #### 2 77430 #### [facility],[address] [place] [address] 89746 Sodium [Moles/Vol] 137 mmol/L Normal 136 - 145 [facility] Comment on above: Performed By: #### 2 25603 #### [facility],[address] [place], [place] [address] Urea nitrogen [Mass/Vol] 13 mg/dL Normal 7 - 18 [facility] Comment on above: Performed By: #### 2 36233 #### [facility],[address] [place] [address] 93293 HEMOGLOBIN A1C (POM)on 12-26 Glucose [Mass/Vol] 111.2 mg/dL High 0.0 - 0.0 [facility] Comment on above: Result Comment: BLDo HEMOGLOBIN A1C REFERENCE RANGESBLDo Suggested Diagnosis HbA1c(%) HbA1C (mmol/mol Diabetic >/=6.5 >/=48 Prediabetes 5.7 - 6.4 39 - 47 Normal <5.7 <39 Performed By: #### 2 91758 #### [facility],[address] [place] [address]00 HbA1c (Bld) [Mass fraction] 5.5 % Normal 0.0 - 6.5 [facility] Comment on above: Performed By: #### 2 50877 #### [facility],[address] [place] [address] 86948 LIPID PROFILEon 12-26-2024 Cholesterol [Mass/Vol] 144 mg/dL Normal 0 - 240 [facility] Comment on above: Performed By: #### 2 03392 #### [facility],[address] [place] [address] 58847 Cholesterol in HDL [Mass/Vol] 46 mg/dL Normal 40 - 60 [facility] Comment on above: Performed By: #### 2 87108 #### [facility],[address] [place] [address] 94597 Cholesterol in LDL [Mass/Vol] 86 mg/dL Normal 0 - 129 [facility] Comment on above: Performed By: #### 2 71415 #### [facility],[address] [place] [address] 24005 Cholesterol.total/Chol esterol in HDL [Mass ratio] 3.1 {ratio} Normal 0.0 - 5.0 [facility] Comment on above: Performed By: #### 2 51482 #### [facility],[address] [place] [address] 00781 Lipid 1996 panel Normal [facility] Comment on above: Result Comment: LIPI D PROFILE Performed By: #### 2 26362 #### [facility],[address] [place] [address] 26271 Triglyceride [Mass/Vol] 62 mg/dL Normal 0 - 150 [facility] Comment on above: Performed By: #### 2 70072 #### [facility],[address] [place] [address] 47134 TSHon 12-26-2024 TSH Qn 1.93 m[IU]/L Normal 0.35 - 3.74 [facility] Comment on above: Performed By: #### 2 78602 #### [facility],[address] [place] [address] 75257 URINALYSISon 12-26-2024 Amorphous NONE Normal [facility] Comment on above: Performed By: #### 2 87106 #### [facility],[address] [place] [address] 76210 Bacteria TRACE Normal [facility] Comment on above: Performed By: #### 2 16030 #### [facility],[address] [place] [address] 66122 Bilirubin Ql (U) Negative Normal NORMAL: NEGATIVE [facility] Comment on above: Performed By: #### 2 94947 #### [facility],[address] [place] [address] 65138 Casts NONE Normal [facility] Comment on above: Performed By: #### 2 55275 #### [facility],[address] [place] [address] 18876 Clarity (U) clear Normal NORMAL: CLEAR [facility] Comment on above: Performed By: #### 2 04330 #### [facility],[address] [place] [address] 00140 Color (U) bharti Normal NORMAL: YELLOW [facility] Comment on above: Performed By: #### 2 32845 #### [facility],[address] [place] [address] 98422 Crystals LM Nom (Urine sed) NONE Normal [facility] Comment on above: Performed By: #### 2 54667 #### [facility],[address] [place] [address] 10029 Epi Cells OCC Normal [facility] Comment on above: Performed By: #### 2 68402 #### [facility],[address] [place] [address] 05862 Glucose Ql (U) NORM Normal NORMAL: NORMAL [facility] Comment on above: Performed By: #### 2 31357 #### [facility],[address] [place] [address] 69744 Hemoglobin Ql (U) Negative Normal NORMAL: NEGATIVE [facility] Comment on above: Performed By: #### 2 69110 #### [facility],[address] [place] [address] 83364 Ketone Negative Normal NORMAL: NEGATIVE [facility] Comment on above: Performed By: #### 2 68095 #### [facility],[address] [place] [address] 81560 Leukocytes 25 Abnormal NORMAL: NEGATIVE [facility] Comment on above: Performed By: #### 2 74787 #### [facility],[address] [place] [address] 51969 Mucous NONE Normal [facility] Comment on above: Performed By: #### 2 03978 #### [facility],[address] [place] [address] 70290 Nitrite Ql (U) Negative Normal NORMAL: NEGATIVE [facility] Comment on above: Performed By: #### 2 82147 #### [facility],[address] [place] [address] 26295 pH (U) 6.5 [pH] Normal NORMAL: 5.0-8.0 [facility] Comment on above: Performed By: #### 2 06902 #### [facility],[address] [place] [address] 79392 Protein Ql (U) 30 Abnormal NORMAL: NEGATIVE [facility] Comment on above: Performed By: #### 2 63655 #### [facility],[address] [place] [address] 81905 Rbc NONE Normal 0-3/hpf [facility] Comment on above: Performed By: #### 2 81459 #### [facility],[address] [place] [address] 07012 Sp [place] 1.010 Normal NORMAL: 1.010-1.030 [facility] Comment on above: Performed By: #### 2 29470 #### [facility],[address] [place] [address] 29071 Specimen Type R Normal [facility] Comment on above: Performed By: #### 2 57916 #### [facility],[address] [place], [place] [id number] Urinalysis dipstick W Reflex Microscopic panel (U) SEE BELOW Normal [facility] Comment on above: Result Comment: MICR OSCOPIC Performed By: #### 2 43009 #### [facility],[address] [place] [address] 49904 Urobilinog 1 Abnormal NORMAL: NORMAL [facility] Comment on above: Performed By: #### 2 65876 #### [facility],[address] [place] [address] 34979 Wbc 1-5 Normal 0-5/hpf [facility] Comment on above: Performed By: #### 2 [id number] #### [facility],[address] [place], [place] [id number] Yeast NONE Normal [facility] Comment on above: Performed By: #### 2 [id number] #### [facility],[address] [place], [place] [id number] 12 Lead EKGon 12-23-2024 12 Lead EKG Normal [facility] Anion gap in Serum or Plasma Ordered By: Jose Taylor on 12-23-2024 Anion gap [Moles/Vol] 10 mmol/L 5-15 [facility] BUN/creatinine ratioOrdered By: Jose Taylor on 12-23-2024 Urea nitrogen/Creatinine [Mass ratio] 15.6 mg/mg 10-20 [facility] Bilirubin, totalOrdered By: Jose Taylor on 12-23-2024 Bilirubin [Mass/Vol] 1.13 mg/dL 0.00-1.30 [facility] CBC-Complete Blood Cnt No Di ffon 12-23-2024 Erythrocyte distribution width (RBC) [Ratio] 13.7 % Normal 11.6-14.6 [facility] Comment on above: Performed By: #### L 500.4050, L100.0500 ####[facility] [address] [place], [place], [id number] Hematocrit (Bld) [Volume fraction] 41.3 % Normal 40-54 [facility] Comment on above: Performed By: #### L 500.4050, L100.0500 ####[facility] [address] [place], [address] Hemoglobin (Bld) [Mass/Vol] 12.9 g/dL Low 13.0-16.5 [facility] Comment on above: Performed By: #### L 500.4050, L100.0500 ####[facility] [address] [place], [address] MCH (RBC) [Entitic mass] 26.7 pg Low 27.0-32.0 [facility] Comment on above: Performed By: #### L 500.4050, L100.0500 ####[facility] [address] [place], [address] MCHC (RBC) [Mass/Vol] 31.2 g/dL Low 32-36 [facility] Comment on above: Performed By: #### L 500.4050, L100.0500 ####[facility] [address] [place], [address] MCV (RBC) [Entitic vol] 85.3 fL Normal 80-94 [facility] Comment on above: Performed By: #### L 500.4050, L100.0500 ####[facility] [address] [place], [address] Platelet mean volume (Bld) [Entitic vol] 9.8 fL Normal 6.2-12.0 [facility] Comment on above: Performed By: #### L 500.4050, L100.0500 ####[facility] [address] [place], [address] Platelets (Bld) [#/Vol] 110 10*3/uL Low 150-450 [facility] Comment on above: Performed By: #### L 500.4050, L100.0500 ####[facility] [address] [place], [address] RBC (Bld) [#/Vol] 4.84 10*6/uL Normal 4.6-6.2 [facility] Comment on above: Performed By: #### L 500.4050, L100.0500 ####[facility] [address] [place], [address] RDW SD 42.5 fl Normal 35.1-43.9 [facility] Comment on above: Performed By: #### L 500.4050, L100.0500 ####[facility] [address] [place], [address] WBC (Bld) [#/Vol] 9.3 10*3/uL Normal 4.4-11.0 [facility] Comment on above: Performed By: #### L 500.4050, L100.0500 ####[facility] [address] [place], [address] Carbon dioxide, total [Moles /volume] in Central venous bloodOrdered By: Jose Taylor on 12-23-2024 CO2 [Moles/Vol] 27.2 mmol/L 21.0-32.0 [facility] Chest PA and Lateralon 12-23 Chest PA and Lateral Normal [facility] Chloride assayOrdered By: Luba Taylor on 12-23-2024 Chloride [Moles/Vol] 101 mmol/L 98-108 [facility] Comprehensive Metabolic Prof ilon 12-23-2024 Albumin [Mass/Vol] 3.8 g/dL Normal 3.4-4.8 [facility] Comment on above: Performed By: #### L 500.4050, L100.0500 ####[facility] [address] [place], [address] Albumin/Globulin [Mass ratio] 1.7 {ratio} Normal 0.9-2.4 [facility] Comment on above: Performed By: #### L 500.4050, L100.0500 ####[facility] [address] [place], [address] ALK PHOS 55 U/L Normal 40-129 [facility] Comment on above: Performed By: #### L 500.4050, L100.0500 ####[facility] [address] [place], [address] ALT [Catalytic activity/Vol] 12 U/L Normal <=46 [facility] Comment on above: Performed By: #### L 500.4050, L100.0500 ####[facility] [address] [place], [address] AST [Catalytic activity/Vol] 15 U/L Normal <=37 [facility] Comment on above: Performed By: #### L 500.4050, L100.0500 ####[facility] [address] [place], [address] Bilirubin [Mass/Vol] 1.13 mg/dL Normal 0.00-1.30 [facility] Comment on above: Performed By: #### L 500.4050, L100.0500 ####[facility] [address] [place], [address] BUN/CRE 15.6 RATIO Normal 10-20 [facility] Comment on above: Performed By: #### L 500.4050, L100.0500 ####[facility] [address] [place], [address] Calcium [Mass/Vol] 9.7 mg/dL Normal 7.6-11.0 [facility] Comment on above: Performed By: #### L 500.4050, L100.0500 ####[facility] [address] [place], [address] Chloride [Moles/Vol] 101 mmol/L Normal 98-108 [facility] Comment on above: Performed By: #### L 500.4050, L100.0500 ####[facility] [address] [place], [address] CO2 [Moles/Vol] 27.2 mmol/L Normal 21.0-32.0 [facility] Comment on above: Performed By: #### L 500.4050, L100.0500 ####[facility] [address] [place], [address] Creatinine [Mass/Vol] 1.34 mg/dL High 0.70-1.20 [facility] Comment on above: Performed By: #### L 500.4050, L100.0500 ####[facility] [address] [place], [address] ECRCL 40.88 ml/min Low 50-250 [facility] Comment on above: Performed By: #### L 500.4050, L100.0500 ####[facility] [address] [place], [address] GAP 10 Normal 5-15 [facility] Comment on above: Performed By: #### L 500.4050, L100.0500 ####[facility] [address] [place], [address] GFR/1.73 sq M.predicted among non-blacks MDRD (S/P/Bld) [Vol rate/Area] 55 mL/min/{1.73_m2} Low >60 [facility] Comment on above: Result Comment: mL/m in/1.73m2 CKD-EPI Creatinine Equation (2020) Performed By: #### L 500.4050, L100.0500 ####[facility] [address] [place], [address] Globulin (S) [Mass/Vol] 2.3 g/dL Normal 2.2-4.2 [facility] Comment on above: Performed By: #### L 500.4050, L100.0500 ####[facility] [address] [place], [address] Glucose [Mass/Vol] 117 mg/dL High 70-99 [facility] Comment on above: Performed By: #### L 500.4050, L100.0500 ####[facility] [address] [place], [address] Potassium [Moles/Vol] 4.1 mmol/L Normal 3.3-5.1 [facility] Comment on above: Performed By: #### L 500.4050, L100.0500 ####[facility] [address] [place], [address] Sodium [Moles/Vol] 138 mmol/L Normal 133-145 [facility] Comment on above: Performed By: #### L 500.4050, L100.0500 ####[facility] [address] [place], [address] T PROT 6.0 g/dL Normal 5.9-8.4 [facility] Comment on above: Performed By: #### L 500.4050, L100.0500 ####[facility] [address] [place], [address] Urea nitrogen [Mass/Vol] 21 mg/dL High 4-19 [facility] Comment on above: Performed By: #### L 500.4050, L100.0500 ####[facility] [address] [place], [address] Emergency Department Summary on 12-23-2024 Emergency Department Summary Normal [facility] Erythrocyte distribution wid th ratioOrdered By: Jose Taylor on 12-23-2024 Erythrocyte distribution width (RBC) [Ratio] 13.7 % 11.6-14.6 [facility] Erythrocyte distribution wid th standard deviationOrdered By: Jose Taylor on 12-23-2024 Erythrocyte distribution width (RBC) [Ratio] 42.5 fl 35.1-43.9 [facility] Glomerular filtration rate ( GFR) estimation/1.73 sq m using serum, plasma, or whole bOrdered By: Jose Taylor on 12-23-2024 GFR/1.73 sq M.predicted among non-blacks MDRD (S/P/Bld) [Vol rate/Area] 55 mL/min/{1.73_m2} Low >60 [facility] Comment on above: mL/min/1.73m2 CKD-EP I Creatinine Equation (2020) Hematocrit Auto (Bld) [Volum e fraction]Ordered By: Jose Taylor on 12-23-2024 Hematocrit (Bld) [Volume fraction] 41.3 % 40-54 [facility] Hemoglobin measurementOrdere d By: Jose Taylor on 12-23-2024 Hemoglobin (Bld) [Mass/Vol] 12.9 g/dL Low 13.0-16.5 [facility] Laboratory - Chemistry and C hemistry - challengeOrdered By: Jose Taylor on 12-23-2024 AST [Catalytic activity/Vol] 15 U/L <38 [facility] MCV (mean corpuscular volume ) determinationOrdered By: Jose Taylor on 12-23-2024 MCV (RBC) [Entitic vol] 85.3 fL 80-94 [facility] Mean corpuscular hemoglobin (MCH) determinationOrdered By: Jose Taylor on 12-23-2024 MCH (RBC) [Entitic mass] 26.7 pg Low 27.0-32.0 [facility] Mean corpuscular hemoglobin concentration (MCHC) determinationOrdered By: Jose Taylor on 12-23-2024 MCHC (RBC) [Mass/Vol] 31.2 g/dL Low 32-36 [facility] Mean platelet volume determi nationOrdered By: Jose Taylor on 12-23-2024 Platelet mean volume (Bld) [Entitic vol] 9.8 fL 6.2-12.0 [facility] Platelet countOrdered By: Luba Taylor on 12-23-2024 Platelets (Bld) [#/Vol] 110 10*3/uL Low 150-450 [facility] Potassium measurement (mass/ volume)Ordered By: Jose Taylor on 12-23-2024 Potassium (Unsp spec) [Mass/Vol] 4.1 mmol/L 3.3-5.1 [facility] RBC Auto (Bld) [#/Vol]Ordere d By: Jose Taylor on 12-23-2024 RBC (Bld) [#/Vol] 4.84 10*6/uL 4.6-6.2 [facility] Serum creatinine measurement (mass/volume)Ordered By: Jose Taylor on 12-23-2024 Creatinine [Mass/Vol] 1.34 mg/dL High 0.70-1.20 [facility] Serum globulin measurementOr dered By: Jose Taylor on 12-23-2024 Globulin (S) [Mass/Vol] 2.3 g/dL 2.2-4.2 [facility] Serum glucose measurement (m ass/volume)Ordered By: Jose Taylor on 12-23-2024 Glucose [Mass/Vol] 117 mg/dL High 70-99 [facility] Serum or plasma alanine brumfield otransferase (ALT) measurementOrdered By: Jose Taylor on 12-23-2024 ALT [Catalytic activity/Vol] 12 U/L <47 [facility] Serum or plasma albumin lukas urement (mass/volume)Ordered By: Jose Taylor on 12-23-2024 Albumin [Mass/Vol] 3.8 g/dL 3.4-4.8 [facility] Serum or plasma albumin/glob ulin mass ratioOrdered By: Jose Taylor 12-23-2024 Albumin/Globulin [Mass ratio] 1.7 {ratio} 0.9-2.4 [facility] Serum or plasma alkaline simba sphatase measurementOrdered By: Josedaisy Taylor on 12-23-2024 ALP [Catalytic activity/Vol] 55 U/L 40-129 [facility] Serum or plasma calcium luksa urement (mass/volume)Ordered By: Jose Taylor on 12-23-2024 Calcium [Mass/Vol] 9.7 mg/dL 7.6-11.0 [facility] Serum or plasma urea nitroge n measurement (mass/volume)Ordered By: Jose Taylor on 12-23-2024 Urea nitrogen [Mass/Vol] 21 mg/dL High 4-19 [facility] Sodium levelOrdered By: Jose Taylor on 12-23-2024 Sodium [Moles/Vol] 138 mmol/L 133-145 [facility] Surgery Visit Reporton 12-23 Surgery Visit Report Normal [facility] Total proteinOrdered By: Jose Taylor on 12-23-2024 Protein [Mass/Vol] 6.0 g/dL 5.9-8.4 [facility] White blood cell (WBC) count Ordered By: Jose Taylor on 12-23-2024 WBC (Bld) [#/Vol] 9.3 10*3/uL 4.4-11.0 [facility] Absolute lymphocyte countOrd ered By: Clement Lewis on 12-17-2024 Lymphocytes Auto (Unsp spec) [#/Vol] 33.78 10*3/uL High 0.83-4.51 [facility] Absolute neutrophil countOrd ered By: Clement Lewis on 12-17-2024 Neutrophils (Bld) [#/Vol] 4.5 10*3/uL 2.0-7.7 [facility] Anion gap in Serum or Plasma Ordered By: Clement Lewis on 12-17-2024 Anion gap [Moles/Vol] 11 mmol/L 5-15 [facility] Automated lymphocyte count a s percentage of total leukocytesOrdered By: Clement Lewis on 12-17-2024 Lymphocytes/100 WBC Auto (Unsp spec) 80.4 % High 19-41 [facility] BUN/creatinine ratioOrdered By: Clement Lewis on 12-17-2024 Urea nitrogen/Creatinine [Mass ratio] 13.7 mg/mg 10-20 [facility] Comment on above: Previous reported re sult: 13.5 RATIOEdited by: ARELIS on 12/17/24:0831 AMENDED REPORT 12/17/24 0831 BUN/CRE previously reported as: 13.5 RATIO Basophil percentageOrdered B y: Clement Lewis on 12-17-2024 Basophils/100 WBC (Bld) 0.5 % 0-1 [facility] Bilirubin, totalOrdered By: Clement Lewis on 12-17-2024 Bilirubin [Mass/Vol] 0.92 mg/dL 0.00-1.30 [facility] Comment on above: Previous reported re sult: 0.90 mg/dLEdited by: ARELIS on 12/17/24:0831 AMENDED REPORT 12/17/24830 T BILI previously reported as: 0.90 mg/dL CBC W/Diff, Automatedon 08-0 PLT EST SLT DEC Normal ADEQ [facility] Comment on above: Performed By: #### L 500.4050, L504.2610, L100.0100, L501.1400 ####[facility] [address] [place], [address] Absolute Neut Normal 2.0-7.7 [facility] Comment on above: Result Comment: DUPL ICATE ORDER Performed By: #### L 500.4050, L100.0100 ####[facility] [address] [place], [address] HCT Normal 40-54 [facility] Comment on above: Result Comment: DUPL ICATE ORDER Performed By: #### L 500.4050, L100.0100 ####[facility] [address] [place], [address] HGB Normal 13.0-16.5 [facility] Comment on above: Result Comment: DUPL ICATE ORDER Performed By: #### L 500.4050, L100.0100 ####[facility] [address] [place], [address] MCH Normal 27.0-32.0 [facility] Comment on above: Result Comment: DUPL ICATE ORDER Performed By: #### L 500.4050, L100.0100 ####[facility] [address] [place], [address] MCHC Normal 32-36 [facility] Comment on above: Result Comment: DUPL ICATE ORDER Performed By: #### L 500.4050, L100.0100 ####[facility] [address] [place], [address] MCV Normal 80-94 [facility] Comment on above: Result Comment: DUPL ICATE ORDER Performed By: #### L 500.4050, L100.0100 ####[facility] [address] [place], [address] NEUT% Normal 47-70 [facility] Comment on above: Result Comment: DUPL ICATE ORDER Performed By: #### L 500.4050, L100.0100 ####[facility] [address] [place], [address] PLT Normal 150-450 [facility] Comment on above: Result Comment: DUPL ICATE ORDER Performed By: #### L 500.4050, L100.0100 ####[facility] [address] [place], [address] RBC Normal 4.6-6.2 [facility] Comment on above: Result Comment: DUPL ICATE ORDER Performed By: #### L 500.4050, L100.0100 ####[facility] [address] [place], [address] RDW CV Normal 11.6-14.6 [facility] Comment on above: Result Comment: DUPL ICATE ORDER Performed By: #### L 500.4050, L100.0100 ####[facility] [address] [place], [address] RDW SD Normal 35.1-43.9 [facility] Comment on above: Result Comment: DUPL ICATE ORDER Performed By: #### L 500.4050, L100.0100 ####[facility] [address] [place], [address] WBC Normal 4.4-11.0 [facility] Comment on above: Result Comment: DUPL ICATE ORDER Performed By: #### L 500.4050, L100.0100 ####[facility] [address] [place], [address] Carbon dioxide, total [Moles /volume] in Central venous bloodOrdered By: Clement Lewis on 12-17-2024 CO2 [Moles/Vol] 23.6 mmol/L 21.0-32.0 [facility] Comment on above: Previous reported re sult: 23.5 mmol/LEdited by: AUTOINCruzito on 12/17/24:830 AMENDED REPORT 12/17/24830 CO2 previously reported as: 23.5 mmol/L Chloride assayOrdered By: Sandy Lewis on 12-17-2024 Chloride [Moles/Vol] 108 mmol/L 98-108 [facility] Comprehensive Metabolic Prof ilon 12-17-2024 Albumin [Mass/Vol] 4.0 g/dL Normal 3.4-4.8 [facility] Comment on above: Result Comment: AMENDED REPORT 12/17/24830 ALB previously reported as: 3.9 g/dL Performed By: #### L 500.4050, L504.2610, L100.0100, L501.1400 ####[facility] [address] [place], [address] Albumin/Globulin [Mass ratio] 2.3 {ratio} Normal 0.9-2.4 [facility] Comment on above: Result Comment: AMENDED REPORT 12/17/24830 A/G previously reported as: 2.0 RATIO Performed By: #### L 500.4050, L504.2610, L100.0100, L501.1400 ####[facility] [address] [place], [address] ALK PHOS 69 U/L Normal 40-129 [facility] Comment on above: Result Comment: AMENDED REPORT 12/17/24830 ALK P previously reported as: 68 U/L Performed By: #### L 500.4050, L504.2610, L100.0100, L501.1400 ####[facility] [address] [place], [address] ALT [Catalytic activity/Vol] 14 U/L Normal <=46 [facility] Comment on above: Result Comment: AMENDED REPORT 12/17/24830 ALT previously reported as: 15 U/L Performed By: #### L 500.4050, L504.2610, L100.0100, L501.1400 ####[facility] [address] [place], [address] AST [Catalytic activity/Vol] 26 U/L Normal <=37 [facility] Comment on above: Performed By: #### L 500.4050, L504.2610, L100.0100, L501.1400 ####[facility] [address] [place], [address] Bilirubin [Mass/Vol] 0.92 mg/dL Normal 0.00-1.30 [facility] Comment on above: Result Comment: AMENDED REPORT 12/17/24830 T BILI previously reported as: 0.90 mg/dL Performed By: #### L 500.4050, L504.2610, L100.0100, L501.1400 ####[facility] [address] [place], [address] BUN/CRE 13.7 RATIO Normal 10-20 [facility] Comment on above: Result Comment: AMENDED REPORT 12/17/24830 BUN/CRE previously reported as: 13.5 RATIO Performed By: #### L 500.4050, L504.2610, L100.0100, L501.1400 ####[facility] [address] [place], [address] Calcium [Mass/Vol] 9.1 mg/dL Normal 7.6-11.0 [facility] Comment on above: Result Comment: AMENDED REPORT 12/17/24830 CA previously reported as: 9.2 mg/dL Performed By: #### L 500.4050, L504.2610, L100.0100, L501.1400 ####[facility] [address] [place], [address] Chloride [Moles/Vol] 108 mmol/L Normal 98-108 [facility] Comment on above: Performed By: #### L 500.4050, L504.2610, L100.0100, L501.1400 ####[facility] [address] [place], [address] CO2 [Moles/Vol] 23.6 mmol/L Normal 21.0-32.0 [facility] Comment on above: Result Comment: AMENDED REPORT 12/17/24830 CO2 previously reported as: 23.5 mmol/L Performed By: #### L 500.4050, L504.2610, L100.0100, L501.1400 ####[facility] [address] [place], [address] Creatinine [Mass/Vol] 1.09 mg/dL Normal 0.70-1.20 [facility] Comment on above: Result Comment: AMENDED REPORT 12/17/24830 CREAT,SERUM previously reported as: 1.05 mg/dL Performed By: #### L 500.4050, L504.2610, L100.0100, L501.1400 ####[facility] [address] [place], [address] ECRCL 50.70 ml/min Normal 50-250 [facility] Comment on above: Result Comment: AMENDED REPORT 12/17/24830 Estimated CRCL previously reported as: 52.64 ml/min Performed By: #### L 500.4050, L504.2610, L100.0100, L501.1400 ####[facility] [address] [place], [address] GAP 11 Normal 5-15 [facility] Comment on above: Performed By: #### L 500.4050, L504.2610, L100.0100, L501.1400 ####[facility] [address] [place], [address] Globulin (S) [Mass/Vol] 1.8 g/dL Low 2.2-4.2 [facility] Comment on above: Result Comment: AMENDED REPORT 12/17/24830 GLOB previously reported as: 1.9 L g/dL Performed By: #### L 500.4050, L504.2610, L100.0100, L501.1400 ####[facility] [address] [place], [address] Glucose [Mass/Vol] 125 mg/dL High 70-99 [facility] Comment on above: Result Comment: AMENDED REPORT 12/17/24830 GLU previously reported as: 126 H mg/dL Performed By: #### L 500.4050, L504.2610, L100.0100, L501.1400 ####[facility] [address] [place], [address] Potassium [Moles/Vol] 3.8 mmol/L Normal 3.3-5.1 [facility] Comment on above: Result Comment: AMENDED REPORT 12/17/24830 K previously reported as: 3.9 mmol/L Performed By: #### L 500.4050, L504.2610, L100.0100, L501.1400 ####[facility] [address] [place], [address] Sodium [Moles/Vol] 142 mmol/L Normal 133-145 [facility] Comment on above: Performed By: #### L 500.4050, L504.2610, L100.0100, L501.1400 ####[facility] [address] [place], [address] T PROT 5.7 g/dL Low 5.9-8.4 [facility] Comment on above: Result Comment: AMENDED REPORT 12/17/24830 T PROT previously reported as: 5.8 L g/dL Performed By: #### L 500.4050, L504.2610, L100.0100, L501.1400 ####[facility] [address] [place], [address] Urea nitrogen [Mass/Vol] 15 mg/dL Normal 4-19 [facility] Comment on above: Result Comment: AMENDED REPORT 12/17/24830 BUN previously reported as: 14 mg/dL Performed By: #### L 500.4050, L504.2610, L100.0100, L501.1400 ####[facility] [address] [place], [address] ALB Normal 3.4-4.8 [facility] Comment on above: Result Comment: DUPL ICATE ORDER Performed By: #### L 500.4050, L100.0100 ####[facility] [address] [place], [address] ALK PHOS Normal 40-129 [facility] Comment on above: Result Comment: DUPL ICATE ORDER Performed By: #### L 500.4050, L100.0100 ####[facility] [address] [place], [address] ALT Normal <=46 [facility] Comment on above: Result Comment: DUPL ICATE ORDER Performed By: #### L 500.4050, L100.0100 ####[facility] [address] [place], [address] AST Normal <=37 [facility] Comment on above: Result Comment: DUPL ICATE ORDER Performed By: #### L 500.4050, L100.0100 ####[facility] [address] [place], [address] BUN Normal 4-19 [facility] Comment on above: Result Comment: DUPL ICATE ORDER Performed By: #### L 500.4050, L100.0100 ####[facility] [address] [place], [address] BUN/CRE Normal 10-20 [facility] Comment on above: Result Comment: DUPL ICATE ORDER Performed By: #### L 500.4050, L100.0100 ####[facility] [address] [place], [address] Calcium Normal 7.6-11.0 [facility] Comment on above: Result Comment: DUPL ICATE ORDER Performed By: #### L 500.4050, L100.0100 ####[facility] [address] [place], [address] CL Normal 98-108 [facility] Comment on above: Result Comment: DUPL ICATE ORDER Performed By: #### L 500.4050, L100.0100 ####[facility] [address] [place], [address] CO2 Normal 21.0-32.0 [facility] Comment on above: Result Comment: DUPL ICATE ORDER Performed By: #### L 500.4050, L100.0100 ####[facility] [address] [place], [address] CREAT,SERUM Normal 0.70-1.20 [facility] Comment on above: Result Comment: DUPL ICATE ORDER Performed By: #### L 500.4050, L100.0100 ####[facility] [address] [place], [address] eGFR Normal >60 [facility] Comment on above: Result Comment: DUPL ICATE ORDER Performed By: #### L 500.4050, L100.0100 ####[place] [facility] [address] [place], [address] GAP Normal 5-15 [facility] Comment on above: Result Comment: DUPL ICATE ORDER Performed By: #### L 500.4050, L100.0100 ####[facility] [address] [place], [address] GLU Normal 70-99 [facility] Comment on above: Result Comment: DUPL ICATE ORDER Performed By: #### L 500.4050, L100.0100 ####[facility] [address] [place], [address] Potassium Normal 3.3-5.1 [facility] Comment on above: Result Comment: DUPL ICATE ORDER Performed By: #### L 500.4050, L100.0100 ####[facility] [address] [place], [address] T BILI Normal 0.00-1.30 [facility] Comment on above: Result Comment: DUPL ICATE ORDER Performed By: #### L 500.4050, L100.0100 ####[facility] [address] [place], [address] T PROT Normal 5.9-8.4 [facility] Comment on above: Result Comment: DUPL ICATE ORDER Performed By: #### L 500.4050, L100.0100 ####[facility] [address] [place], [address] Comprehensive Metabolic Profil Normal 133-145 [facility] Comment on above: Result Comment: DUPL ICATE ORDER Performed By: #### L 500.4050, L100.0100 ####[facility] [address] [place], [address] Eosinophil percentageOrdered By: Clement Lewis on 12-17-2024 Eosinophils/100 WBC (Bld) 1.4 % 0-5 [facility] Erythrocyte distribution wid th ratioOrdered By: Clement Lewis on 12-17-2024 Erythrocyte distribution width (RBC) [Ratio] 13.8 % 11.6-14.6 [facility] Erythrocyte distribution wid th standard deviationOrdered By: [facility] on 12-[facility]-2024 Erythrocyte distribution width (RBC) [Ratio] 44.4 fl High 35.1-43.9 [facility] Glomerular filtration rate ( GFR) estimation/1.73 sq m using serum, plasma, or whole bOrdered By: Clement Lewis on 12-17-2024 GFR/1.73 sq M.predicted among non-blacks MDRD (S/P/Bld) [Vol rate/Area] 73 mL/min/{1.73_m2} >60 [facility] Comment on above: mL/min/1.73m2 CKD-EP I Creatinine Equation (2020) Hematocrit Auto (Bld) [Volum e fraction]Ordered By: Clement Lewis on 12-17-2024 Hematocrit (Bld) [Volume fraction] 43.0 % 40-54 [facility] Hemoglobin measurementOrdere d By: Clement Lewis on 12-17-2024 Hemoglobin (Bld) [Mass/Vol] 12.9 g/dL Low 13.0-16.5 [facility] Immature granulocytes/100 WB C Auto (Bld)Ordered By: Clement Lewis on 12-17-2024 Immature granulocytes/100 WBC (Bld) 0.300 % 0.0-0.9 [facility] Comment on above: IG% - Immature Granu locytes (promyelocytes, myelocytes and metamyelocytes) > 1% indicates that a LEFT SHIFT is Present. LDHon 12-17-2024 LDH 207 U/L Normal 87-241 [facility] Comment on above: Order Comment: 1 Performed By: #### L 500.4050, L504.2610, L100.0100, L501.1400 ####[facility] [address] [place], [address] Laboratory - Chemistry and C hemistry - challengeOrdered By: [facility] on 12-17-2024 AST [Catalytic activity/Vol] 26 U/L <38 [facility] Lactate dehydrogenase (LDH) measurementOrdered By: Clement Lewis on 12-17-2024 LDH [Catalytic activity/Vol] 207 U/L 87-241 [facility] MCV (mean corpuscular volume ) determinationOrdered By: Clement Lewis on 12-17-2024 MCV (RBC) [Entitic vol] 88.1 fL 80-94 [facility] Mean corpuscular hemoglobin (MCH) determinationOrdered By: lCement Lewis on 12-17-2024 MCH (RBC) [Entitic mass] 26.4 pg Low 27.0-32.0 [facility] Mean corpuscular hemoglobin concentration (MCHC) determinationOrdered By: Clement Lewis on 12-17-2024 MCHC (RBC) [Mass/Vol] 30.0 g/dL Low 32-36 [facility] Mean platelet volume determi nationOrdered By: Clement Lewis on 12-17-2024 Platelet mean volume (Bld) [Entitic vol] 9.7 fL 6.2-12.0 [facility] Monocyte percentageOrdered B y: Clement Lewis on 12-17-2024 Monocytes/100 WBC (Bld) 6.8 % 0-10 [facility] Neutrophil percentageOrdered By: Clement Lewis on 12-17-2024 Neutrophils/100 WBC (Bld) 10.6 % Low 47-70 [facility] Nucleated red blood cell per centageOrdered By: Clement Lewis on 12-17-2024 Nucleated RBC/100 WBC (Bld) [Ratio] 0 % 0-5 [facility] Oncology Visit Reporton 08-0 Oncology Visit Report Normal [facility] Platelet countOrdered By: Sandy Lewis on 12-17-2024 Platelets (Bld) [#/Vol] 148 10*3/uL Low 150-450 [facility] Platelet estimateOrdered By: Clement Lewis on 12-17-2024 Platelets LM Ql (Bld) SLT DEC ADEQ [facility] Potassium measurement (mass/ volume)Ordered By: Clement Lewis on 12-17-2024 Potassium (Unsp spec) [Mass/Vol] 3.8 mmol/L 3.3-5.1 [facility] Comment on above: Previous reported re sult: 3.9 mmol/LEdited by: AUTOINS on 12/17/24:830 AMENDED REPORT 12/17/24830 K previously reported as: 3.9 mmol/L RBC Auto (Bld) [#/Vol]Ordere d By: Clement Lewis on 12-17-2024 RBC (Bld) [#/Vol] 4.88 10*6/uL 4.6-6.2 [facility] Serum creatinine measurement (mass/volume)Ordered By: Clement Lewis on 12-17-2024 Creatinine [Mass/Vol] 1.09 mg/dL 0.70-1.20 [facility] Comment on above: Previous reported re sult: 1.05 mg/dLEdited by: ARELIS on 12/17/24:830 AMENDED REPORT 12/17/24830 CREAT,SERUM previously reported as: 1.05 mg/dL Serum globulin measurementOr dered By: Clement Lewis on 12-17-2024 Globulin (S) [Mass/Vol] 1.8 g/dL Low 2.2-4.2 [facility] Comment on above: Previous reported re sult: 1.9 g/dLEdited by: ARELIS on 12/17/24:31 AMENDED REPORT 12/17/24830 GLOB previously reported as: 1.9 L g/dL Serum glucose measurement (m ass/volume)Ordered By: Clement Lewis on 12-17-2024 Glucose [Mass/Vol] 125 mg/dL High 70-99 [facility] Comment on above: Previous reported re sult: 126 mg/dLEdited by: ARELIS on 12/17/24:31 AMENDED REPORT 12/17/24830 GLU previously reported as: 126 H mg/dL Serum or plasma alanine brumfield otransferase (ALT) measurementOrdered By: Clement Lewis on 12-17-2024 ALT [Catalytic activity/Vol] 14 U/L <47 [facility] Comment on above: Previous reported re sult: 15 U/LEdited by: ARELIS on 12/17/24:0831 AMENDED REPORT 12/17/24830 ALT previously reported as: 15 U/L Serum or plasma albumin lukas urement (mass/volume)Ordered By: Clement Lewis on 12-17-2024 Albumin [Mass/Vol] 4.0 g/dL 3.4-4.8 [facility] Comment on above: Previous reported re sult: 3.9 g/dLEdited by: ARELIS on 12/17/24:31 AMENDED REPORT 12/17/24830 ALB previously reported as: 3.9 g/dL Serum or plasma albumin/glob ulin mass ratioOrdered By: Clement Lewis on 12-17-2024 Albumin/Globulin [Mass ratio] 2.3 {ratio} 0.9-2.4 [facility] Comment on above: Previous reported re sult: 2.0 RATIOEdited by: ARELIS on 12/17/24:830 AMENDED REPORT 12/17/24830 A/G previously reported as: 2.0 RATIO Serum or plasma alkaline simba sphatase measurementOrdered By: Clement Lewis on 12-17-2024 ALP [Catalytic activity/Vol] 69 U/L 40-129 [facility] Comment on above: Previous reported re sult: 68 U/LEdited by: ARELIS on 12/17/24:31 AMENDED REPORT 12/17/24830 ALK P previously reported as: 68 U/L Serum or plasma calcium lukas urement (mass/volume)Ordered By: Clement Lewis on 12-17-2024 Calcium [Mass/Vol] 9.1 mg/dL 7.6-11.0 [facility] Comment on above: Previous reported re sult: 9.2 mg/dLEdited by: ARELIS on 12/17/24:31 AMENDED REPORT 12/17/24830 CA previously reported as: 9.2 mg/dL Serum or plasma urea nitroge n measurement (mass/volume)Ordered By: Clement Lewis on 12-17-2024 Urea nitrogen [Mass/Vol] 15 mg/dL 4-19 [facility] Comment on above: Previous reported re sult: 14 mg/dLEdited by: ARELIS on 12/17/24:31 AMENDED REPORT 12/17/24830 BUN previously reported as: 14 mg/dL Serum or plasma uric acid me asurement (mass/volume)Ordered By: Clement Lewis on 12-17-2024 Urate [Mass/Vol] 3.2 mg/dL Low 3.5-7.2 [facility] Comment on above: The drugs N-Acetylcy steine and Metamizole may falsely depress this assay. Sodium levelOrdered By: Kameron Lewis on 12-17-2024 Sodium [Moles/Vol] 142 mmol/L 133-145 [facility] Total proteinOrdered By: Sekou Lewis on 12-17-2024 Protein [Mass/Vol] 5.7 g/dL Low 5.9-8.4 [facility] Comment on above: Previous reported re sult: 5.8 g/dLEdited by: ARELIS on 12/17/24:0831 AMENDED REPORT 12/17/24830 T PROT previously reported as: 5.8 L g/dL Uric Acidon 12-17-2024 URIC 3.2 mg/dL Low 3.5-7.2 [facility] Comment on above: Result Comment: The drugs N-Acetylcysteine and Metamizole may falselydepress this assay. Performed By: #### L 500.4050, L504.2610, L100.0100, L501.1400 ####[facility] [address] [place], [address] White blood cell (WBC) count Ordered By: Clement Lewis on 12-17-2024 WBC (Bld) [#/Vol] 42.0 10*3/uL High 4.4-11.0 [facility] Comment on above: CRITICAL VALUE AYALA D TO /06/25 0816 Staci Rowell.RESULTS READ BACK BY same. Oncology Visit Reporton 11-12 Oncology Visit Report Normal [facility] Pulmonary Visit Reporton Pulmonary Visit Report Normal [facility] 6 Minute Walk Teston 025 6 Minute Walk Test Normal [facility] Surgical pathology reportOrd ered By: Maranda Macario on 11-24-2024 Surgical pathology study [facility] Activated partial thrombopla stin time (aPTT) in platelet poor plasma by coagulation aOrdered By: Juma Lombardi on 11-20-2024 aPTT Coag (PPP) [Time] 26.9 s 24.1-36.2 [facility] Biopsy/Inj or Needle Placeme nton 11-20-2024 Biopsy/Inj or Needle Placement Normal [facility] Chest Insp/Exp 2 Viewon 11-11 Chest Insp/Exp 2 View Normal [facility] Chest Insp/Exp 2 View Normal [facility] International normalized rat io (INR) calculationOrdered By: Juma Lombardi on 11-20-2024 INR Coag (Bld) [Relative time] 1.0 {INR} [facility] Partial Thromboplast Timeon 11-20-2024 aPTT Coag (Bld) [Time] 26.9 s Normal 24.1-36.2 [facility] Comment on above: Performed By: #### L 300.3900, L300.4310 ####[facility] [address] [place], [address] Prothrombin Time w/INRon INR Coag (PPP) [Relative time] 1.0 {INR} Normal [facility] Comment on above: Performed By: #### L 300.3900, L300.4310 ####[facility] [address] [place], [address] PT Coag (PPP) [Time] 13.0 s Normal 11.7-14.9 [facility] Comment on above: Performed By: #### L 300.3900, L300.4310 ####[facility] [address] [place], [address] Prothrombin timeOrdered By: Juma Lombardi on 11-20-2024 PT Coag (PPP) [Time] 13.0 s 11.7-14.9 [facility] Special Stain Group IIon Special Stain Group II Normal [facility] Comment on above: Performed By: #### P SSII ####[facility] [address] [place], [address] Oncology Visit Reporton Oncology Visit Report Normal [facility] Pulmonary Visit Reporton Pulmonary Visit Report Normal [facility] Hepatitis B/C Profile VIIIon 11-10-2024 HEPATITIS INTER Normal [facility] Comment on above: Result Comment: TEST RESULTS LIMITSViral Hepatitis HBV, HCV HBsAg Screen Negative Negative Hep B Surface Ab, Qual Non Reactive Non Reactive: Not immune to HBV infection. Equivocal: Unable to determine if anti-HBs is present at levels consistent with immunity. Reactive: Anti-HBs concentration detected at greater than 10 mIU/mL. Individual is considered to be immune to infection with HBV.Hep B Core Ab, Tot Negative NegativeInterpretation HBV Serology Interpretation Chart Interpretation HBsAg anti-HBs anti-HBc anti-HBcIgM Holly - Analyte present: + Analyte absent: - Test notindicated: TNI Susceptible (never infected and no evidence - - - TNI of vaccination) Immune due to natural resolved infection - + + TNI Immune due to vaccination - + - TNI Acute Infection + - + + Chronic infection + - + - Interpretation unclear* - - + +/- *Multiple possibilities: resolved infection (most common);false- positive anti-HBc (susceptible); low-level chronicinfection; resolving acute infection.HCV Ab Non Reactive Non ReactiveInterpretation: Not infected with HCV unless early or acute infection is suspected (which may be delayed in an immunocompromised individual), or other evidence exists to indicate HCV infection. ____ TESTING PERFORMED AT [facility]. ORIGINAL REPORT ON FILE IN LAB CONTAINS ADDITIONAL TEST SITE INFORMATION. Performed By: #### L 3000.0800 ####[facility] [address] [facility] [address] [place], [place], [address] L3410.9994on 11-10-2024 [facility] Misc. 2 Normal [facility] Comment on above: Order Comment: [id number] 3IGHV WITH CD38 Result Comment: TEST RESULTS LIMITSIGHV Somatic Hypermutation Interpretation: Client Specimen ID: Not Given IGHV Somatic Hypermutation was not detected. DISCLAIMER: REFER TO HARDCOPY OR PDF FOR COMPLETERESULT. If synopsis provided, clinical decisions should not be based on this interfaced synopsis alone. TESTING PERFORMED AT [facility]. ORIGINAL REPORT ON FILE IN LAB CONTAINS ADDITIONAL TEST SITE INFORMATION. Performed By: #### L 3130.0010, L3410.9996, L100.0100, L501.1400, L3100.3425, L3410.9994, L500.4050, L3410.9998, L504.2610, L3410.9992 ####[facility] [address] [place], [address] L3410.9996on 11-10-2024 [facility] Misc. 3 Normal [facility] Comment on above: Order Comment: [id number] 9CYTOGENETIC Result Comment: Scan eloisa image report available in EMR Performed By: #### L 3130.0010, L3410.9996, L100.0100, L501.1400, L3100.3425, L3410.9994, L500.4050, L3410.9998, L504.2610, L3410.9992 ####[facility] [address] [place], [place], [address] [facility] Misc.on 11-10-2024 [facility] Misc. 4 Normal [facility] Comment on above: Order Comment: [id number] 0CLL FISH Result Comment: Sent directly to testing facility per ordering physician. Performed By: #### L 3130.0010, L3410.9996, L100.0100, L501.1400, L3100.3425, L3410.9994, L500.4050, L3410.9998, L504.2610, L3410.9992 ####[facility] [address] [place], [place], [address] PET/CT Tumor Base -Thigh Ini ton 11-04-2024 PET/CT Tumor Base -Thigh Init Normal [facility] No Panel InformationOrdered By: Clement Lewis on 10-30-2024 Hepatitis Interpretation See comment [facility] Comment on above: TEST RESULTS LIMITSV iral Hepatitis HBV, HCV HBsAg Screen Negative Negative Hep B Surface Ab, Qual Non Reactive Non Reactive: Not immune to HBV infection. Equivocal: Unable to determine if anti-HBs is present at levels consistent with immunity. Reactive: Anti-HBs concentration detected at greater than 10 mIU/mL. Individual is considered to be immune to infection with HBV.Hep B Core Ab, Tot Negative NegativeInterpretation HBV Serology Interpretation Chart Interpretation HBsAg anti-HBs anti-HBc anti-HBc IgM Holly - Analyte present: + Analyte absent: - Test not indicated: TNI Susceptible (never infected and no evidence - - - TNI of vaccination) Immune due to natural resolved infection - + + TNI Immune due to vaccination - + - TNI Acute Infection + - + + Chronic infection + - + - Interpretation unclear* - - + +/- *Multiple possibilities: resolved infection (most common); false- positive anti-HBc (susceptible); low-level chronic infection; resolving acute infection.HCV Ab Non Reactive Non ReactiveInterpretation: Not infected with HCV unless early or acute infection is suspected (which may be delayed in an immunocompromised individual), or other evidence exists to indicate HCV infection. ____ [facility] ORIGINAL REPORT ON FILE IN LAB CONTAINS ADDITIONAL TEST SITE INFORMATION. Oncology Visit Reporton 10-12 Oncology Visit Report Normal [facility] Serum hepatitis B virus core antibody detectionOrdered By: Clement Lewis on 10-30-2024 HBV core Ab Ql (S) Not Reportable [facility] Serum or plasma hepatitis B virus surface antigen detection by immunoassayOrdered By: Clement Lewis on 10-30-2024 HBV surface Ag IA Ql Not Reportable [facility] NOE + Protein Elect, Serumon 10-21-2024 Albumin [Mass/Vol] 3.6 g/dL Normal 2.9-4.4 [facility] Comment on above: Order Comment: N Performed By: #### L 3130.0010, L3410.9996, L100.0100, L501.1400, L3100.3425, L3410.9994, L500.4050, L3410.9998, L504.2610, L3410.9992 ####[facility] [address] [place], [place], [id number] Albumin/Globulin [Mass ratio] 1.6 {ratio} Normal 0.7-1.7 [facility] Comment on above: Order Comment: N Performed By: #### L 3130.0010, L3410.9996, L100.0100, L501.1400, L3100.3425, L3410.9994, L500.4050, L3410.9998, L504.2610, L3410.9992 ####[facility] [address] [place], [address](745 GQQAM-6-WRWY 0.3 g/dL Normal 0.0-0.4 [facility] Comment on above: Order Comment: N Performed By: #### L 3130.0010, L3410.9996, L100.0100, L501.1400, L3100.3425, L3410.9994, L500.4050, L3410.9998, L504.2610, L3410.9992 ####[facility] [address] [place], [address]( HWXPR-9-NFAH 0.7 g/dL Normal 0.4-1.0 [facility] Comment on above: Order Comment: N Performed By: #### L 3130.0010, L3410.9996, L100.0100, L501.1400, L3100.3425, L3410.9994, L500.4050, L3410.9998, L504.2610, L3410.9992 ####[facility] [address] [place], [address] BETA GLOBULIN 0.8 g/dL Normal 0.7-1.3 [facility] Comment on above: Order Comment: N Performed By: #### L 3130.0010, L3410.9996, L100.0100, L501.1400, L3100.3425, L3410.9994, L500.4050, L3410.9998, L504.2610, L3410.9992 ####[facility] [address] [place], [address] GAMMA GLOBULIN 0.5 g/dL Normal 0.4-1.8 [facility] Comment on above: Order Comment: N Performed By: #### L 3130.0010, L3410.9996, L100.0100, L501.1400, L3100.3425, L3410.9994, L500.4050, L3410.9998, L504.2610, L3410.9992 ####[facility] [address] [place], [place], [phone](953) Globulin (S) [Mass/Vol] 2.3 g/dL Normal 2.2-3.9 [facility] Comment on above: Order Comment: N Performed By: #### L 3130.0010, L3410.9996, L100.0100, L501.1400, L3100.3425, L3410.9994, L500.4050, L3410.9998, L504.2610, L3410.9992 ####[facility] [address] [place], [place], [phone](713) NOE RESULT,S Comment: Normal . [facility] Comment on above: Order Comment: N Result Comment: Pres ence of monoclonal protein is unclear at this time. Suggestrepeat in 3 to 6 months if clinically indicated. Performed By: #### L 3130.0010, L3410.9996, L100.0100, L501.1400, L3100.3425, L3410.9994, L500.4050, L3410.9998, L504.2610, L3410.9992 ####[facility] [address] [place], [place], [phone]) IMMUNOGLOB A QN 39 mg/dL Low 61-437 [facility] Comment on above: Order Comment: N Result Comment: Resu lt confirmed on concentration. Performed By: #### L 3130.0010, L3410.9996, L100.0100, L501.1400, L3100.3425, L3410.9994, L500.4050, L3410.9998, L504.2610, L3410.9992 ####[facility] [address] [place], [place], [id number] IMMUNOGLOB G QN 538 mg/dL Low 603-1613 [facility] Comment on above: Order Comment: N Performed By: #### L 3130.0010, L3410.9996, L100.0100, L501.1400, L3100.3425, L3410.9994, L500.4050, L3410.9998, L504.2610, L3410.9992 ####[facility] [address] [place], [place], [address] IMMUNOGLOB M QN 16 mg/dL Normal 15-143 [facility] Comment on above: Order Comment: N Result Comment: Resu lt confirmed on concentration. Performed By: #### L 3130.0010, L3410.9996, L100.0100, L501.1400, L3100.3425, L3410.9994, L500.4050, L3410.9998, L504.2610, L3410.9992 ####[facility] [address] [place], [place], [phone] M-Tyrone Not Observed Normal Not Observed [facility] Comment on above: Order Comment: N Performed By: #### L 3130.0010, L3410.9996, L100.0100, L501.1400, L3100.3425, L3410.9994, L500.4050, L3410.9998, L504.2610, L3410.9992 ####[facility] [address] [place], [place], [phone] NOTE: Comment Normal . [facility] Comment on above: Order Comment: N Result Comment: Prot ein electrophoresis scan will follow via computer,mail, or casino host delivery. Performed By: #### L 3130.0010, L3410.9996, L100.0100, L501.1400, L3100.3425, L3410.9994, L500.4050, L3410.9998, L504.2610, L3410.9992 ####[facility] [address] [place], [place], [address] Protein [Mass/Vol] 5.9 g/dL Low 6.0-8.5 [facility] Comment on above: Order Comment: N Performed By: #### L 3130.0010, L3410.9996, L100.0100, L501.1400, L3100.3425, L3410.9994, L500.4050, L3410.9998, L504.2610, L3410.9992 ####[facility] [address] [place], [place], [phone] [place] [employer] Ch[employer]on 10-21-2024 FR KAPPA LT CHN 47.4 mg/L Abnormal 3.3-19.4 [facility] Comment on above: Performed By: #### L 3130.0010, L3410.9996, L100.0100, L501.1400, L3100.3425, L3410.9994, L500.4050, L3410.9998, L504.2610, L3410.9992 ####[facility] [address] [place], [place], [phone] FR LAMBDA LT CH 9.3 mg/L Normal 5.7-26.3 [facility] Comment on above: Performed By: #### L 3130.0010, L3410.9996, L100.0100, L501.1400, L3100.3425, L3410.9994, L500.4050, L3410.9998, L504.2610, L3410.9992 ####[facility] [address] [place], [place], [phone] KAPPA/LAMBDA % 5.10 Abnormal 0.26-1.65 [facility] Comment on above: Result Comment: Perf ormed at: - [facility] [id number] Director: Rolando Vega PhD, Phone: [phone] Performed By: #### L 3130.0010, L3410.9996, L100.0100, L501.1400, L3100.3425, L3410.9994, L500.4050, L3410.9998, L504.2610, L3410.9992 ####[facility] [address] [place], [address] L3410.9992on 10-20-2024 [facility] Misc. COMMENT Normal . [facility] Comment on above: Order Comment: [id number] 0FLOW CYTOMETRY Result Comment: Test Ordered: [id number] Flow panel: Leukemia/LymphomaFlow Interpretation Comment -Y Reference Range: .Chronic lymphocytic leukemia (CLL), clonal B cells representing 86% ofleukocytes, positive for CD20, CD22, CD19 and CD38, see comment.Flow Comment Comment -Y Reference Range: .Expression of CD38 on >30% of the clonal B-cells is reported to be anunfavorable prognostic factor in CLL. Investigation of TP53 aberrations bysequencing is warranted prior to each course of therapy. (Genomic profilingfor clinical decision making in lymphoid neoplasms, Blood, January 04, 2022)Prior flow cytometry results have been reviewed and showed similarfindings.Clinical Information Comment -Y Reference Range: .A recent CBC was not available for review at the time this report wasprepared.Specimen Type Comment -Y Reference Range: .Peripheral bloodAssessment of Leukocytes Comment -Y Reference Range: .A CD5 and CD23 positive monoclonal B cell population is detected with kappalight chain restriction, positive for CD38 (88%), negative for FMC7,representing 86% of leukocytes and 100% of B cells, > 5,000/uL.There is no loss of, or aberrant expression of, the skinner T cell antigens tosuggest a neoplastic T cell process.CD4:CD8 ratio 0.8No circulating blasts are detected.There is no immunophenotypic evidence of abnormal myeloid maturation.Analysis of the leukocyte population shows: granulocytes 7%, monocytes 2%,lymphocytes 91%, blasts <0.1%, B cells 86%, T cells 5%, NK cells <1%.Viability Comment -Y Reference Range: .94%Immunophenotypic Profile Comment -Y Reference Range: .Abnormal cell population: present-86% of total cells (Phenotype below)Analysis and Gating Strategy Comment -Y Reference Range: .8 color analysis with CD45/SSC gating Technical-[facility]who [facility], [address], [facility] [address], Director: Dax Kumari [facility], Phenotype Chart Comment -Y Reference Range: .CD2 (-) CD3 (-)CD4 (-) CD5 (+)CD7 (-) CD8 (-)CD10 (-) CD11b (-)CD11c (+) CD13 (-)CD14 (-) CD15 (-)CD16 (-) CD19 (+) DimCD20 (+) Dim CD22 (+) DimCD23 (+) CD33 (-)CD34 (-) CD38 (+)CD45 (+) CD56 (-)CD57 (-) CD64 (-)CD103 (-) CD117 (-)FMC-7 (-) HLA-DR (+)KAPPA (+) LAMBDA (-)Resulting Path Name Comment -Y Reference Range: .Juan Carlos Hernandez M.D.Comment: Comment TG Reference Range: .Each antibody in this assay was utilized to assess forpotential abnormalities of studied cell populations or tocharacterize identified abnormalities.This test was developed and its performance characteristicsdetermined by [facility]. It has not been cleared or approvedby the U.S. Food and Drug Administration.The FDA has determined that such clearance or approval isnot necessary. This test is used for clinical purposes. Itshould not be regarded as investigational or for research.Performed at: -Y - [facility] [id number] [facility], [place] [id number] Director: Dax Kumari [facility], Phone: [phone] at: TG - [facility] [id number] [facility], [place] [id number] Director: Dax Kumari [facility], Phone: [phone] at: [address] [id number] Director: Rolando Vega PhD, Phone: [phone] Performed By: #### L 3130.0010, Z1060.9156, L100.0100, L501.1400, L3100.3425, L3410.9994, L500.4050, L3410.9998, L504.2610, L3410.9992 ####[facility] [address] [place], [address] Absolute lymphocyte countOrd ered By: [facility] on 10-16-2024 Lymphocytes Auto (Unsp spec) [#/Vol] 35.18 10*3/uL High 0.83-4.51 [facility] Absolute neutrophil countOrd ered By: [facility] on 10-16-2024 Neutrophils (Bld) [#/Vol] 4.1 10*3/uL 2.0-7.7 [facility] Albumin Elph [Mass/Vol]Order ed By: [facility] on 10-16-2024 Albumin [Mass/Vol] 3.6 g/dL 2.9-4.4 [facility] Anion gap in Serum or Plasma Ordered By: [facility] on 10-16-2024 Anion gap [Moles/Vol] 13 mmol/L 5-15 [facility] Automated lymphocyte count a s percentage of total leukocytesOrdered By: [facility] on 10-16-2024 Lymphocytes/100 WBC Auto (Unsp spec) 85.1 % High 19-41 [facility] BUN/creatinine ratioOrdered By: [facility] on 10-16-2024 Urea nitrogen/Creatinine [Mass ratio] 14.6 mg/mg 10-20 [facility] Basophil percentageOrdered B y: [facility] on 10-16-2024 Basophils/100 WBC (Bld) 0.4 % 0-1 [facility] Bilirubin, totalOrdered By: [facility] on 10-16-2024 Bilirubin [Mass/Vol] 0.74 mg/dL 0.00-1.30 [facility] CBC W/Diff, Automatedon Absolute Lymph 35.18 X10 3/uL High 0.83-4.51 [facility] Comment on above: Order Comment: CRITI CHANDA VALUE CALLED TO CELINE COON10/16/24 0926 Velma Jerez.RESULTS READ BACK BY SAME. Performed By: #### L 3130.0010, L3410.9996, L100.0100, L501.1400, L3100.3425, L3410.9994, L500.4050, L3410.9998, L504.2610, L3410.9992 ####[facility] [address] [place], [address] Absolute Neut 4.1 X10 3/uL Normal 2.0-7.7 [facility] Comment on above: Order Comment: CRITI CHANDA VALUE CALLED TO [facility]10/16/[address] Velma Jerez.RESULTS READ BACK BY SAME. Performed By: #### L 3130.0010, L3410.9996, L100.0100, L501.1400, L3100.3425, L3410.9994, L500.4050, L3410.9998, L504.2610, L3410.9992 ####[facility] [address] [place], [address] Basophils/100 WBC (Bld) 0.4 % Normal 0-1 [facility] Comment on above: Order Comment: CRITI CHANDA VALUE CALLED TO [facility]10/16/[address]25 Velma Jerez.RESULTS READ BACK BY SAME. Performed By: #### L 3130.0010, L3410.9996, L100.0100, L501.1400, L3100.3425, L3410.9994, L500.4050, L3410.9998, L504.2610, L3410.9992 ####[facility] [address] [place], [address] Eosinophils/100 WBC (Bld) 0.0 % Normal 0-5 [facility] Comment on above: Order Comment: CRITI CHANDA VALUE CALLED TO [facility]10/16/[address]25 Velma Jerez.RESULTS READ BACK BY SAME. Performed By: #### L 3130.0010, L3410.9996, L100.0100, L501.1400, L3100.3425, L3410.9994, L500.4050, L3410.9998, L504.2610, L3410.9992 ####[facility] [address] [place], [address] Erythrocyte distribution width (RBC) [Ratio] 14.3 % Normal 11.6-14.6 [facility] Comment on above: Order Comment: CRITI CHANDA VALUE CALLED TO [facility]10/16/24925 Velma Jerez.RESULTS READ BACK BY SAME. Performed By: #### L 3130.0010, L3410.9996, L100.0100, L501.1400, L3100.3425, L3410.9994, L500.4050, L3410.9998, L504.2610, L3410.9992 ####[facility] [address] [place], [address] Hematocrit (Bld) [Volume fraction] 44.3 % Normal 40-54 [facility] Comment on above: Order Comment: CRITI CHANDA VALUE CALLED TO [facility]10/16/24925 Velma Jerez.RESULTS READ BACK BY SAME. Performed By: #### L 3130.0010, L3410.9996, L100.0100, L501.1400, L3100.3425, L3410.9994, L500.4050, L3410.9998, L504.2610, L3410.9992 ####[facility] [address] [place], [address] Hemoglobin (Bld) [Mass/Vol] 13.6 g/dL Normal 13.0-16.5 [facility] Comment on above: Order Comment: CRITI CHANDA VALUE CALLED TO [facility]10/16/24925 Velma Jerez.RESULTS READ BACK BY SAME. Performed By: #### L 3130.0010, L3410.9996, L100.0100, L501.1400, L3100.3425, L3410.9994, L500.4050, L3410.9998, L504.2610, L3410.9992 ####[facility] [address] [place], [place], [phone](731) IG% 0.200 Normal 0.0-0.9 [facility] Comment on above: Order Comment: CRITI CHANDA VALUE CALLED TO [facility]10/16/24 09 Velma Jerez.RESULTS READ BACK BY SAME. Result Comment: IG% - Immature Granulocytes (promyelocytes, myelocytes andmetamyelocytes) > 1% indicates that a LEFT SHIFT is Present. Performed By: #### L 3130.0010, L3410.9996, L100.0100, L501.1400, L3100.3425, L3410.9994, L500.4050, L3410.9998, L504.2610, L3410.9992 ####[facility] [address] [facility] [address] [place], [place], [phone](905) Lymphocytes/100 WBC (Bld) 85.1 % High 19-41 [facility] Comment on above: Order Comment: CRITI CHANDA VALUE CALLED TO [facility]10/16/24925 Velma Jerez.RESULTS READ BACK BY SAME. Performed By: #### L 3130.0010, L3410.9996, L100.0100, L501.1400, L3100.3425, L3410.9994, L500.4050, L3410.9998, L504.2610, L3410.9992 ####[facility] [address] [place], [place], [phone](086) MCH (RBC) [Entitic mass] 27.1 pg Normal 27.0-32.0 [facility] Comment on above: Order Comment: CRITI CHANDA VALUE CALLED TO [facility]10/16/24925 Velma Jerez.RESULTS READ BACK BY SAME. Performed By: #### L 3130.0010, L3410.9996, L100.0100, L501.1400, L3100.3425, L3410.9994, L500.4050, L3410.9998, L504.2610, L3410.9992 ####[facility] [address] [place], [place], [phone](488) MCHC (RBC) [Mass/Vol] 30.7 g/dL Low 32-36 [facility] Comment on above: Order Comment: CRITI CHANDA VALUE CALLED TO [facility]10/16/2426 Velma Solitario.RESULTS READ BACK BY SAME. Performed By: #### L 3130.0010, L3410.9996, L100.0100, L501.1400, L3100.3425, L3410.9994, L500.4050, L3410.9998, L504.2610, L3410.9992 ####[facility] [address] [place], [place], [phone](276) MCV (RBC) [Entitic vol] 88.2 fL Normal 80-94 [facility] Comment on above: Order Comment: CRITI CHANDA VALUE CALLED TO [facility]10/16/24925 Velma Solitario.RESULTS READ BACK BY SAME. Performed By: #### L 3130.0010, L3410.9996, L100.0100, L501.1400, L3100.3425, L3410.9994, L500.4050, L3410.9998, L504.2610, L3410.9992 ####[facility] [address] [place], [address] Monocytes/100 WBC (Bld) 4.2 % Normal 0-10 [facility] Comment on above: Order Comment: CRITI CHANDA VALUE CALLED TO [facility]10/16/24925 Velma Solitario.RESULTS READ BACK BY SAME. Performed By: #### L 3130.0010, L3410.9996, L100.0100, L501.1400, L3100.3425, L3410.9994, L500.4050, L3410.9998, L504.2610, L3410.9992 ####[facility] [address] [place], [place], [phone] Neutrophils/100 WBC (Bld) 10.1 % Low 47-70 [facility] Comment on above: Order Comment: CRITI CHANDA VALUE CALLED TO [facility]10/16/24925 Velma Jerez.RESULTS READ BACK BY SAME. Performed By: #### L 3130.0010, L3410.9996, L100.0100, L501.1400, L3100.3425, L3410.9994, L500.4050, L3410.9998, L504.2610, L3410.9992 ####[facility] [address] [place], [place], [phone] Nucleated RBC (Bld) [#/Vol] 0 10*3/uL Normal 0-5 [facility] Comment on above: Order Comment: CRITI CHANDA VALUE CALLED TO [place] [id number] Velma Jerez.RESULTS READ BACK BY SAME. Performed By: #### L 3130.0010, L3410.9996, L100.0100, L501.1400, L3100.3425, L3410.9994, L500.4050, L3410.9998, L504.2610, L3410.9992 ####[facility] [address] [place], [place], [phone] Platelet mean volume (Bld) [Entitic vol] 9.8 fL Normal 6.2-12.0 [facility] Comment on above: Order Comment: CRITI CHANDA VALUE CALLED TO [place] [id number] Velma Jerez.RESULTS READ BACK BY SAME. Performed By: #### L 3130.0010, L3410.9996, L100.0100, L501.1400, L3100.3425, L3410.9994, L500.4050, L3410.9998, L504.2610, L3410.9992 ####[facility] [address] [place], [place], [phone](484) Platelets (Bld) [#/Vol] 133 10*3/uL Low 150-450 [facility] Comment on above: Order Comment: CRITI CHANDA VALUE CALLED TO [facility]10/16/24925 Velma Jerez.RESULTS READ BACK BY SAME. Performed By: #### L 3130.0010, L3410.9996, L100.0100, L501.1400, L3100.3425, L3410.9994, L500.4050, L3410.9998, L504.2610, L3410.9992 ####[facility] [address] [place], [place], [phone](403) RBC (Bld) [#/Vol] 5.02 10*6/uL Normal 4.6-6.2 [facility] Comment on above: Order Comment: CRITI CHANDA VALUE CALLED TO [place] [id number] Velma Jerez.RESULTS READ BACK BY SAME. Performed By: #### L 3130.0010, L3410.9996, L100.0100, L501.1400, L3100.3425, L3410.9994, L500.4050, L3410.9998, L504.2610, L3410.9992 ####[facility] [address] [place], [place], [phone](643) RDW SD 45.6 fl High 35.1-43.9 [facility] Comment on above: Order Comment: CRITI CHANDA VALUE CALLED TO [place] [id number] Velma Jerez.RESULTS READ BACK BY SAME. Performed By: #### L 3130.0010, L3410.9996, L100.0100, L501.1400, L3100.3425, L3410.9994, L500.4050, L3410.9998, L504.2610, L3410.9992 ####[facility] [address] [place], [phone](144) WBC (Bld) [#/Vol] 41.3 10*3/uL Invalid Interpretation Code 4.4-11.0 [facility] Comment on above: Order Comment: CRITI CHANDA VALUE CALLED TO CELINE COON10/16/24 0926 Velma Jerez.RESULTS READ BACK BY SAME. Performed By: #### L 3130.0010, L3410.9996, L100.0100, L501.1400, L3100.3425, L3410.9994, L500.4050, L3410.9998, L504.2610, L3410.9992 ####[facility] [address] [place], [place], [phone] Carbon dioxide, total [Moles /volume] in Central venous bloodOrdered By: Clement Lewis on 10-16-2024 CO2 [Moles/Vol] 22.2 mmol/L 21.0-32.0 [facility] Chloride assayOrdered By: Sandy Lewis on 10-16-2024 Chloride [Moles/Vol] 108 mmol/L 98-108 [facility] Comprehensive Metabolic Prof ilon 10-16-2024 Albumin [Mass/Vol] 4.1 g/dL Normal 3.4-4.8 [facility] Comment on above: Performed By: #### L 3130.0010, L3410.9996, L100.0100, L501.1400, L3100.3425, L3410.9994, L500.4050, L3410.9998, L504.2610, L3410.9992 ####[facility] [address] [place], [place], [phone] Albumin/Globulin [Mass ratio] 1.8 {ratio} Normal 0.9-2.4 [facility] Comment on above: Performed By: #### L 3130.0010, L3410.9996, L100.0100, L501.1400, L3100.3425, L3410.9994, L500.4050, L3410.9998, L504.2610, L3410.9992 ####[facility] [address] [place], [place], [phone] ALK PHOS 68 U/L Normal 40-129 [facility] Comment on above: Performed By: #### L 3130.0010, L3410.9996, L100.0100, L501.1400, L3100.3425, L3410.9994, L500.4050, L3410.9998, L504.2610, L3410.9992 ####[facility] [address] [facility] [address] [place], [place], [phone] ALT [Catalytic activity/Vol] 12 U/L Normal <=46 [facility] Comment on above: Performed By: #### L 3130.0010, L3410.9996, L100.0100, L501.1400, L3100.3425, L3410.9994, L500.4050, L3410.9998, L504.2610, L3410.9992 ####[facility] [address] [facility] [place], [place], [phone] AST [Catalytic activity/Vol] 25 U/L Normal <=37 [facility] Comment on above: Performed By: #### L 3130.0010, L3410.9996, L100.0100, L501.1400, L3100.3425, L3410.9994, L500.4050, L3410.9998, L504.2610, L3410.9992 ####[facility] [address] [facility] [place], [place], [phone] Bilirubin [Mass/Vol] 0.74 mg/dL Normal 0.00-1.30 [facility] Comment on above: Performed By: #### L 3130.0010, L3410.9996, L100.0100, L501.1400, L3100.3425, L3410.9994, L500.4050, L3410.9998, L504.2610, L3410.9992 ####[facility] [address] [facility] [place], [address] BUN/CRE 14.6 RATIO Normal 10-20 [facility] Comment on above: Performed By: #### L 3130.0010, L3410.9996, L100.0100, L501.1400, L3100.3425, L3410.9994, L500.4050, L3410.9998, L504.2610, L3410.9992 ####[facility] [address] [place], [address] Calcium [Mass/Vol] 9.1 mg/dL Normal 7.6-11.0 [facility] Comment on above: Performed By: #### L 3130.0010, L3410.9996, L100.0100, L501.1400, L3100.3425, L3410.9994, L500.4050, L3410.9998, L504.2610, L3410.9992 ####[facility] [address] [place], [place], [phone](014) Chloride [Moles/Vol] 108 mmol/L Normal 98-108 [facility] Comment on above: Performed By: #### L 3130.0010, L3410.9996, L100.0100, L501.1400, L3100.3425, L3410.9994, L500.4050, L3410.9998, L504.2610, L3410.9992 ####[facility] [address] [place], [address] CO2 [Moles/Vol] 22.2 mmol/L Normal 21.0-32.0 [facility] Comment on above: Performed By: #### L 3130.0010, L3410.9996, L100.0100, L501.1400, L3100.3425, L3410.9994, L500.4050, L3410.9998, L504.2610, L3410.9992 ####[facility] [address] [place], [place], [phone] Creatinine [Mass/Vol] 1.21 mg/dL High 0.70-1.20 [facility] Comment on above: Performed By: #### L 3130.0010, L3410.9996, L100.0100, L501.1400, L3100.3425, L3410.9994, L500.4050, L3410.9998, L504.2610, L3410.9992 ####[facility] [address] [place], [place], [phone] ECRCL 48.36 ml/min Low 50-250 [facility] Comment on above: Performed By: #### L 3130.0010, L3410.9996, L100.0100, L501.1400, L3100.3425, L3410.9994, L500.4050, L3410.9998, L504.2610, L3410.9992 ####[facility] [address] [place], [place], [phone] GAP 13 Normal 5-15 [facility] Comment on above: Performed By: #### L 3130.0010, L3410.9996, L100.0100, L501.1400, L3100.3425, L3410.9994, L500.4050, L3410.9998, L504.2610, L3410.9992 ####[facility] [address] [place], [place], [phone] GFR/1.73 sq M.predicted among non-blacks MDRD (S/P/Bld) [Vol rate/Area] 62 mL/min/{1.73_m2} Normal >60 [facility] Comment on above: Result Comment: mL/m in/1.73m2 CKD-EPI Creatinine Equation (2020) Performed By: #### L 3130.0010, L3410.9996, L100.0100, L501.1400, L3100.3425, L3410.9994, L500.4050, L3410.9998, L504.2610, L3410.9992 ####[facility] [address] [place], [address] Globulin (S) [Mass/Vol] 2.2 g/dL Normal 2.2-4.2 [facility] Comment on above: Performed By: #### L 3130.0010, L3410.9996, L100.0100, L501.1400, L3100.3425, L3410.9994, L500.4050, L3410.9998, L504.2610, L3410.9992 ####[facility] [address] [facility] [place], [address] Glucose [Mass/Vol] 91 mg/dL Normal 70-99 [facility] Comment on above: Performed By: #### L 3130.0010, L3410.9996, L100.0100, L501.1400, L3100.3425, L3410.9994, L500.4050, L3410.9998, L504.2610, L3410.9992 ####[facility] [address] [facility] [place], [address] Potassium [Moles/Vol] 4.0 mmol/L Normal 3.3-5.1 [facility] Comment on above: Performed By: #### L 3130.0010, L3410.9996, L100.0100, L501.1400, L3100.3425, L3410.9994, L500.4050, L3410.9998, L504.2610, L3410.9992 ####[facility] [address] [facility] [place], [address] Sodium [Moles/Vol] 143 mmol/L Normal 133-145 [facility] Comment on above: Performed By: #### L 3130.0010, L3410.9996, L100.0100, L501.1400, L3100.3425, L3410.9994, L500.4050, L3410.9998, L504.2610, L3410.9992 ####[facility] [address] [place], [place], [phone] T PROT 6.3 g/dL Normal 5.9-8.4 [facility] Comment on above: Performed By: #### L 3130.0010, L3410.9996, L100.0100, L501.1400, L3100.3425, L3410.9994, L500.4050, L3410.9998, L504.2610, L3410.9992 ####[facility] [address] [place], [place], [phone] Urea nitrogen [Mass/Vol] 18 mg/dL Normal 4-19 [facility] Comment on above: Performed By: #### L 3130.0010, L3410.9996, L100.0100, L501.1400, L3100.3425, L3410.9994, L500.4050, L3410.9998, L504.2610, L3410.9992 ####[facility] [address] [facility] [place], [place], [phone] Eosinophil percentageOrdered By: Clement Lewis on 10-16-2024 Eosinophils/100 WBC (Bld) 0.0 % 0-5 [facility] Erythrocyte distribution wid th ratioOrdered By: Clement Lewis on 10-16-2024 Erythrocyte distribution width (RBC) [Ratio] 14.3 % 11.6-14.6 [facility] Erythrocyte distribution wid th standard deviationOrdered By: Clement Lewis on 10-16-2024 Erythrocyte distribution width (RBC) [Ratio] 45.6 fl High 35.1-43.9 [facility] Glomerular filtration rate ( GFR) estimation/1.73 sq m using serum, plasma, or whole bOrdered By: Clement Lewis on 10-16-2024 GFR/1.73 sq M.predicted among non-blacks MDRD (S/P/Bld) [Vol rate/Area] 62 mL/min/{1.73_m2} >60 [facility] Comment on above: mL/min/1.73m2 CKD-EP I Creatinine Equation (2020) Hematocrit Auto (Bld) [Volum e fraction]Ordered By: Clement Lewis on 10-16-2024 Hematocrit (Bld) [Volume fraction] 44.3 % 40-54 [facility] Hemoglobin measurementOrdere d By: Clement Lewis on 10-16-2024 Hemoglobin (Bld) [Mass/Vol] 13.6 g/dL 13.0-16.5 [facility] Immature granulocytes/100 WB C Auto (Bld)Ordered By: Clement Lewis on 10-16-2024 Immature granulocytes/100 WBC (Bld) 0.200 % 0.0-0.9 [facility] Comment on above: IG% - Immature Granu locytes (promyelocytes, myelocytes and metamyelocytes) > 1% indicates that a LEFT SHIFT is Present. Interpretation of serum or p lasma protein pattern by immunofixation (narrative resultOrdered By: Clement Lewis on 10-16-2024 Protein Fractions Immunofixation Ty [Interp] Not Observed g/dL Not Observed [facility] LDHon 10-16-2024 LDH 201 U/L Normal 87-241 [facility] Comment on above: Order Comment: 1 Performed By: #### L 3130.0010, L3410.9996, L100.0100, L501.1400, L3100.3425, L3410.9994, L500.4050, L3410.9998, L504.2610, L3410.9992 ####[facility] [address] [place], [address] Laboratory - Chemistry and C hemistry - challengeOrdered By: Clement Lewis on 10-16-2024 AST [Catalytic activity/Vol] 25 U/L <38 [facility] Lactate dehydrogenase (LDH) measurementOrdered By: Clement Lewis on 10-16-2024 LDH [Catalytic activity/Vol] 201 U/L 87-241 [facility] MCV (mean corpuscular volume ) determinationOrdered By: Clement Lewis on 10-16-2024 MCV (RBC) [Entitic vol] 88.2 fL 80-94 [facility] Mean corpuscular hemoglobin (MCH) determinationOrdered By: Clement Lewis on 10-16-2024 MCH (RBC) [Entitic mass] 27.1 pg 27.0-32.0 [facility] Mean corpuscular hemoglobin concentration (MCHC) determinationOrdered By: Clement Lewis on 10-16-2024 MCHC (RBC) [Mass/Vol] 30.7 g/dL Low 32-36 [facility] Mean platelet volume determi nationOrdered By: Clement Lewis on 10-16-2024 Platelet mean volume (Bld) [Entitic vol] 9.8 fL 6.2-12.0 [facility] Monocyte percentageOrdered B y: Clement Lewis on 10-16-2024 Monocytes/100 WBC (Bld) 4.2 % 0-10 [facility] Neutrophil percentageOrdered By: Clement Lewis on 10-16-2024 Neutrophils/100 WBC (Bld) 10.1 % Low 47-70 [facility] No Panel InformationOrdered By: Clement Lewis on 10-16-2024 Addendum Document Comment . [facility] Comment on above: Protein electrophore sis scan will follow via computer,mail, or casino host delivery. Nucleated red blood cell per centageOrdered By: Clement Lewis on 10-16-2024 Nucleated RBC/100 WBC (Bld) [Ratio] 0 % 0-5 [facility] Platelet countOrdered By: Sandy Lewis on 10-16-2024 Platelets (Bld) [#/Vol] 133 10*3/uL Low 150-450 [facility] Potassium measurement (mass/ volume)Ordered By: Clement Lewis on 10-16-2024 Potassium (Unsp spec) [Mass/Vol] 4.0 mmol/L 3.3-5.1 [facility] RBC Auto (Bld) [#/Vol]Ordere d By: Clement Lewis on 10-16-2024 RBC (Bld) [#/Vol] 5.02 10*6/uL 4.6-6.2 [facility] Serum creatinine measurement (mass/volume)Ordered By: Clement Lewis on 10-16-2024 Creatinine [Mass/Vol] 1.21 mg/dL High 0.70-1.20 [facility] Serum globulin measurement ( mass/volume)Ordered By: Clement Lewis on 10-16-2024 Globulin (S) [Mass/Vol] 2.3 g/dL 2.2-3.9 [facility] Serum glucose measurement (m ass/volume)Ordered By: Clement Lewis on 10-16-2024 Glucose [Mass/Vol] 91 mg/dL 70-99 [facility] Serum immunoglobulin kappa l ight chains/immunoglobulin lambda light chains mass ratioOrdered By: Clement Lewis on 10-16-2024 Immunoglobulin light chains.kappa/Immunoglo bulin light chains.lambda (S) [Mass ratio] 5.10 High 0.26-1.65 [facility] Comment on above: Performed at: [address] [id number] Director: Rolando Vega PhD, Phone: [phone] Serum or plasma IgA measurem ent (mass/volume)Ordered By: Clement Lewis on 10-16-2024 IgA [Mass/Vol] 39 mg/dL Low 61-437 [facility] Comment on above: Result confirmed on concentration. Serum or plasma IgG measurem ent (mass/volume)Ordered By: Clement Lewis on 10-16-2024 IgG [Mass/Vol] 538 mg/dL Low 603-1613 [facility] Serum or plasma alanine brumfield otransferase (ALT) measurementOrdered By: Clement Lewis on 10-16-2024 ALT [Catalytic activity/Vol] 12 U/L <47 [facility] Serum or plasma albumin lukas urement (mass/volume)Ordered By: Clement Lewis on 10-16-2024 Albumin [Mass/Vol] 4.1 g/dL 3.4-4.8 [facility] Serum or plasma albumin/glob ulin mass ratioOrdered By: Clement Lewis on 10-16-2024 Albumin/Globulin [Mass ratio] 1.8 {ratio} 0.9-2.4 [facility] Serum or plasma alkaline simba sphatase measurementOrdered By: Clement Lewis on 10-16-2024 ALP [Catalytic activity/Vol] 68 U/L 40-129 [facility] Serum or plasma alpha 1 glob ulin measurement by electrophoresis (mass/volume)Ordered By: Clement Lewis on 10-16-2024 Alpha 1 globulin Elph [Mass/Vol] 0.3 g/dL 0.0-0.4 [facility] Alpha 1 globulin Elph [Mass/Vol] 0.7 g/dL 0.4-1.0 [facility] Serum or plasma beta globuli n measurement by electrophoresis (mass/volume)Ordered By: Clement Lewis on 10-16-2024 Beta globulin Elph [Mass/Vol] 0.8 g/dL 0.7-1.3 [facility] Serum or plasma calcium lukas urement (mass/volume)Ordered By: Clement Lewis on 10-16-2024 Calcium [Mass/Vol] 9.1 mg/dL 7.6-11.0 [facility] Serum or plasma gamma globul in measurement by electrophoresis (mass/volume)Ordered By: Clement Lewis on 10-16-2024 Gamma globulin Elph [Mass/Vol] 0.5 g/dL 0.4-1.8 [facility] Serum or plasma immunoelectr ophoresis interpretation (nominal result)Ordered By: Clement Lewis on 10-16-2024 Interpretation IEP [Interp] Comment: . [facility] Comment on above: Presence of monoclon al protein is unclear at this time. Suggestrepeat in 3 to 6 months if clinically indicated. Serum or plasma immunoglobul in kappa light chains measurement (mass/volume)Ordered By: Clement Lewis on 10-16-2024 Immunoglobulin light chains.kappa [Mass/Vol] 47.4 mg/L High 3.3-19.4 [facility] Serum or plasma protein lukas urement (mass/volume)Ordered By: Clement Lewis on 10-16-2024 Protein [Mass/Vol] 5.9 g/dL Low 6.0-8.5 [facility] Serum or plasma urea nitroge n measurement (mass/volume)Ordered By: Clement Lewis on 10-16-2024 Urea nitrogen [Mass/Vol] 18 mg/dL 4-19 [facility] Serum or plasma uric acid me asurement (mass/volume)Ordered By: Clement Lewis on 10-16-2024 Urate [Mass/Vol] 6.2 mg/dL 3.5-7.2 [facility] Comment on above: The drugs N-Acetylcy steine and Metamizole may falsely depress this assay. Sodium levelOrdered By: Kameron Lewis on 10-16-2024 Sodium [Moles/Vol] 143 mmol/L 133-145 [facility] Total proteinOrdered By: Sekou Lewis on 10-16-2024 Protein [Mass/Vol] 6.3 g/dL 5.9-8.4 [facility] Uric Acidon 10-16-2024 URIC 6.2 mg/dL Normal 3.5-7.2 [facility] Comment on above: Result Comment: The drugs N-Acetylcysteine and Metamizole may falselydepress this assay. Performed By: #### L 3130.0010, L3410.9996, L100.0100, L501.1400, L3100.3425, L3410.9994, L500.4050, L3410.9998, L504.2610, L3410.9992 ####[facility] [address] [place], [address] White blood cell (WBC) count Ordered By: Clement Lewis on 10-16-2024 WBC (Bld) [#/Vol] 41.3 10*3/uL High 4.4-11.0 [facility] Oncology Visit Reporton 09-12 Oncology Visit Report Normal [facility] NOE + Protein Elect, Serumon 09-29-2024 Albumin [Mass/Vol] 3.1 g/dL Normal 2.9-4.4 [facility] Comment on above: Order Comment: N Performed By: #### L 3100.3425, L3130.0010 ####[facility] [address] [place], [address] Albumin/Globulin [Mass ratio] 1.2 {ratio} Normal 0.7-1.7 [facility] Comment on above: Order Comment: N Performed By: #### L 3100.3425, L3130.0010 ####[facility] [address] [place], [address] EJWIK-6-BAAQ 0.4 g/dL Normal 0.0-0.4 [facility] Comment on above: Order Comment: N Performed By: #### L 3100.3425, L3130.0010 ####[facility] [address] [place], [address] VTTVE-8-DUPZ 0.9 g/dL Normal 0.4-1.0 [facility] Comment on above: Order Comment: N Performed By: #### L 3100.3425, L3130.0010 ####[facility] [address] [place], [address] BETA GLOBULIN 0.8 g/dL Normal 0.7-1.3 [facility] Comment on above: Order Comment: N Performed By: #### L 3100.3425, L3130.0010 ####[facility] [address] [place], [address] GAMMA GLOBULIN 0.5 g/dL Normal 0.4-1.8 [facility] Comment on above: Order Comment: N Performed By: #### L 3100.3425, L3130.0010 ####[facility] [address] [place], [address] Globulin (S) [Mass/Vol] 2.6 g/dL Normal 2.2-3.9 [facility] Comment on above: Order Comment: N Performed By: #### L 3100.3425, L3130.0010 ####[facility] [address] [place], [address] NOE RESULT,S Comment: Normal . [facility] Comment on above: Order Comment: N Result Comment: Pres ence of monoclonal protein is unclear at this time. Suggestrepeat in 3 to 6 months if clinically indicated. Performed By: #### L 3100.3425, L3130.0010 ####[facility] [address] [place], [address] IMMUNOGLOB A QN 38 mg/dL Low 61-437 [facility] Comment on above: Order Comment: N Result Comment: Resu lt confirmed on concentration. Performed By: #### L 3100.3425, L3130.0010 ####[facility] [address] [place], [address] IMMUNOGLOB G QN 502 mg/dL Low 603-1613 [facility] Comment on above: Order Comment: N Performed By: #### L 3100.3425, L3130.0010 ####[facility] [address] [place], [address] IMMUNOGLOB M QN 16 mg/dL Normal 15-143 [facility] Comment on above: Order Comment: N Result Comment: Resu lt confirmed on concentration. Performed By: #### L 3100.3425, L3130.0010 ####[facility] [address] [place], [address] M-Tyrone Not Observed Normal Not Observed [facility] Comment on above: Order Comment: N Performed By: #### L 3100.3425, L3130.0010 ####[facility] [address] [place], [address] NOTE: Comment Normal . [facility] Comment on above: Order Comment: N Result Comment: Prot ein electrophoresis scan will follow via computer,mail, or casino host delivery. Performed By: #### L 3100.3425, L3130.0010 ####[facility] [address] [place], [address] Protein [Mass/Vol] 5.7 g/dL Low 6.0-8.5 [facility] Comment on above: Order Comment: N Performed By: #### L 3100.3425, L3130.0010 ####[facility] [address] [place], [address] [place] Lambda Light Chainson 09-29-2024 FR KAPPA LT CHN 41.6 mg/L Abnormal 3.3-19.4 [facility] Comment on above: Performed By: #### L 3100.3425, L3130.0010 ####[facility] [address] [place], [place], [id number] FR LAMBDA LT CH 8.7 mg/L Normal 5.7-26.3 [facility] Comment on above: Performed By: #### L 3100.3425, L3130.0010 ####[facility] [address] [place], [place], [address] KAPPA/LAMBDA % 4.78 Abnormal 0.26-1.65 [facility] Comment on above: Result Comment: Perf ormed at: [facility] [address] [id number] Director: Rolando Vega PhD, Phone: [phone] Performed By: #### L 3100.3425, L3130.0010 ####[facility] [address] [facility] [place], [place], [id number] Bacteria Ur Culton Bacteria identified Cx Nom (U) CULTURE, URINE: No growth (<1,000 CFU/ml) Normal [facility] Comment on above: Performed By: #### 6 30-4 #### [facility] CLIA [id number] [address] [place] [address] [place] URINE CULTURE [CCL]on 2024 Bacteria identified Cx Nom (U) URCUL See Results Below See Below CULTURE, URINE No growth (<1,000 CFU/ml) SOURCE: Urine (Nonspecific) [place] [address] Arvind Morrell III, M.D. [id number] Normal [facility] Comment on above: Performed By: #### 2 [address] #### [facility],[address] [place] [address] 12 Lead EKG performed by BMS on 09-03-2024 12 Lead EKG performed by BMS Normal [facility] Cardiology Visit Reporton Cardiology Visit Report Normal [facility] CBC W/Diff, Automatedon 08-12 PATH REV Reviewed Normal [facility] Comment on above: Result Comment: SEE REPORT IN PATIENT'S EMR AMENDED REPORT 08/26/24 1531 PATH REV previously reported as: September dee dee Performed By: #### L 100.0100, L501.6710, L101.9900, L500.4050, L504.2610 ####[facility] [address] [place], [address] Oncology Visit Reporton 07-13 Oncology Visit Report Normal [facility] NOE + Protein Elect, Serumon 07-30-2024 Albumin [Mass/Vol] 3.5 g/dL Normal 2.9-4.4 [facility] Comment on above: Order Comment: PLEAS E ADD ON TO BLOOD IN LAB. THANK YOU!!N Performed By: #### L 3100.3425, L3130.0010 ####[facility] [address] [place], [address] Albumin/Globulin [Mass ratio] 1.4 {ratio} Normal 0.7-1.7 [facility] Comment on above: Order Comment: PLEAS E ADD ON TO BLOOD IN LAB. THANK YOU!!N Performed By: #### L 3100.3425, L3130.0010 ####[facility] [address] [place], [address] ACFMA-7-HLZH 0.3 g/dL Normal 0.0-0.4 [facility] Comment on above: Order Comment: PLEAS E ADD ON TO BLOOD IN LAB. THANK YOU!!N Performed By: #### L 3100.3425, L3130.0010 ####[facility] [address] [place], [address] ZBNHF-2-ERHF 0.8 g/dL Normal 0.4-1.0 [facility] Comment on above: Order Comment: PLEAS E ADD ON TO BLOOD IN LAB. THANK YOU!!N Performed By: #### L 3100.3425, L3130.0010 ####[facility] [address] [place], [address] BETA GLOBULIN 1.0 g/dL Normal 0.7-1.3 [facility] Comment on above: Order Comment: PLEAS E ADD ON TO BLOOD IN LAB. THANK YOU!!N Performed By: #### L 3100.3425, L3130.0010 ####[facility] [address] [place], [address] GAMMA GLOBULIN 0.5 g/dL Normal 0.4-1.8 [facility] Comment on above: Order Comment: PLEAS E ADD ON TO BLOOD IN LAB. THANK YOU!!N Performed By: #### L 3100.3425, L3130.0010 ####[facility] [address] [place], [address] Globulin (S) [Mass/Vol] 2.6 g/dL Normal 2.2-3.9 [facility] Comment on above: Order Comment: PLEAS E ADD ON TO BLOOD IN LAB. THANK YOU!!N Performed By: #### L 3100.3425, L3130.0010 ####[facility] [address] [place], [address] NOE RESULT,S Comment: Normal . [facility] Comment on above: Order Comment: PLEAS E ADD ON TO BLOOD IN LAB. THANK YOU!!N Result Comment: NOE shows an asymmetrical IgM suggestive of a monoclonal protein with an asymmetrical IgG Performed By: #### L 3100.3425, L3130.0010 ####[facility] [address] [place], [address] IMMUNOGLOB A QN 79 mg/dL Normal 61-437 [facility] Comment on above: Order Comment: PLEAS E ADD ON TO BLOOD IN LAB. THANK YOU!!N Performed By: #### L 3100.3425, L3130.0010 ####[facility] [address] [place], [address] IMMUNOGLOB G QN 627 mg/dL Normal 603-1613 [facility] Comment on above: Order Comment: PLEAS E ADD ON TO BLOOD IN LAB. THANK YOU!!N Performed By: #### L 3100.3425, L3130.0010 ####[facility] [address] [place], [address] IMMUNOGLOB M QN 40 mg/dL Normal 15-143 [facility] Comment on above: Order Comment: PLEAS E ADD ON TO BLOOD IN LAB. THANK YOU!!N Performed By: #### L 3100.3425, L3130.0010 ####[facility] [address] [place], [address] M-Tyrone Not Observed Normal Not Observed [facility] Comment on above: Order Comment: PLEAS E ADD ON TO BLOOD IN LAB. THANK YOU!!N Performed By: #### L 3100.3425, L3130.0010 ####[facility] [address] [place], [address] NOTE: Comment Normal . [facility] Comment on above: Order Comment: PLEAS E ADD ON TO BLOOD IN LAB. THANK YOU!!N Result Comment: Prot ein electrophoresis scan will follow via computer,mail, or casino host delivery. Performed By: #### L 3100.3425, L3130.0010 ####[facility] [address] [place], [address] Protein [Mass/Vol] 6.1 g/dL Normal 6.0-8.5 [facility] Comment on above: Order Comment: PLEAS E ADD ON TO BLOOD IN LAB. THANK YOU!!N Performed By: #### L 3100.3425, L3130.0010 ####[facility] [address] [place], [address] [place] Lambda Light Chainson 07-30-2024 FR KAPPA LT CHN 55.0 mg/L Abnormal 3.3-19.4 [facility] Comment on above: Order Comment: PLEAS E ADD ON TO BLOOD IN LAB. THANK YOU!! Performed By: #### L 3100.3425, L3130.0010 ####[facility] [address] [place], [address] FR LAMBDA LT CH 11.7 mg/L Normal 5.7-26.3 [facility] Comment on above: Order Comment: PLEAS E ADD ON TO BLOOD IN LAB. THANK YOU!! Performed By: #### L 3100.3425, L3130.0010 ####[facility] [address] [place], [address] KAPPA/LAMBDA % 4.70 Abnormal 0.26-1.65 [facility] Comment on above: Order Comment: PLEAS E ADD ON TO BLOOD IN LAB. THANK YOU!! Result Comment: Perf ormed at: - [facility] [place] [id number] Director: Rolando Vega PhD, Phone: [phone] Performed By: #### L 3100.3425, L3130.0010 ####[facility] [address] [place], [place], [address] Blood manual differential co mment interpretation (narrative result)Ordered By: Clement Lewis on 07-24-2024 Manual differential comment Ty (Bld) [Interp] SCANNED [facility] Comment on above: LEUKOCYTOSIS NOTEDLY MPHOCYTOSIS NOTEDMONOCYTOSIS NOTED CRPon 07-24-2024 C-REACTIVE PROT 3.35 mg/L High 0.0-3.0 [facility] Comment on above: Performed By: #### L 100.0100, L501.6710, L101.9900, L500.4050, L504.2610 ####[facility] [address] [place], [address] Comprehensive Metabolic Prof ilon 07-24-2024 Albumin [Mass/Vol] 3.9 g/dL Normal 3.4-4.8 [facility] Comment on above: Performed By: #### L 100.0100, L501.6710, L101.9900, L500.4050, L504.2610 ####[facility] [address] [place], [address] Albumin/Globulin [Mass ratio] 1.6 {ratio} Normal 0.9-2.4 [facility] Comment on above: Performed By: #### L 100.0100, L501.6710, L101.9900, L500.4050, L504.2610 ####[facility] [address] [place], [address] ALK PHOS 61 U/L Normal 40-129 [facility] Comment on above: Performed By: #### L 100.0100, L501.6710, L101.9900, L500.4050, L504.2610 ####[facility] [address] [place], [address] ALT [Catalytic activity/Vol] 18 U/L Normal <=46 [facility] Comment on above: Performed By: #### L 100.0100, L501.6710, L101.9900, L500.4050, L504.2610 ####[facility] [address] [place], [address] AST [Catalytic activity/Vol] 28 U/L Normal <=37 [facility] Comment on above: Performed By: #### L 100.0100, L501.6710, L101.9900, L500.4050, L504.2610 ####[facility] [address] [place], [address] Bilirubin [Mass/Vol] 0.43 mg/dL Normal 0.00-1.30 [facility] Comment on above: Performed By: #### L 100.0100, L501.6710, L101.9900, L500.4050, L504.2610 ####[facility] [address] [place], [address] BUN/CRE 13.2 RATIO Normal 10-20 [facility] Comment on above: Performed By: #### L 100.0100, L501.6710, L101.9900, L500.4050, L504.2610 ####[facility] [address] [place], [address] Calcium [Mass/Vol] 9.0 mg/dL Normal 7.6-11.0 [facility] Comment on above: Performed By: #### L 100.0100, L501.6710, L101.9900, L500.4050, L504.2610 ####[facility] [address] [place], [address] Chloride [Moles/Vol] 106 mmol/L Normal 98-108 [facility] Comment on above: Performed By: #### L 100.0100, L501.6710, L101.9900, L500.4050, L504.2610 ####[facility] [address] [place], [address] CO2 [Moles/Vol] 24.4 mmol/L Normal 21.0-32.0 [facility] Comment on above: Performed By: #### L 100.0100, L501.6710, L101.9900, L500.4050, L504.2610 ####[facility] [address] [place], [address] Creatinine [Mass/Vol] 1.05 mg/dL Normal 0.70-1.20 [facility] Comment on above: Performed By: #### L 100.0100, L501.6710, L101.9900, L500.4050, L504.2610 ####[facility] [address] [place], [address] ECRCL 53.52 ml/min Normal 50-250 [facility] Comment on above: Performed By: #### L 100.0100, L501.6710, L101.9900, L500.4050, L504.2610 ####[facility] [address] [place], [address] GAP 9 Normal 5-15 [facility] Comment on above: Performed By: #### L 100.0100, L501.6710, L101.9900, L500.4050, L504.2610 ####[facility] [address] [place], [address] GFR/1.73 sq M.predicted among non-blacks MDRD (S/P/Bld) [Vol rate/Area] 74 mL/min/{1.73_m2} Normal >60 [facility] Comment on above: Result Comment: mL/m in/1.73m2 CKD-EPI Creatinine Equation (2020) Performed By: #### L 100.0100, L501.6710, L101.9900, L500.4050, L504.2610 ####[facility] [address] [place], [address] Globulin (S) [Mass/Vol] 2.5 g/dL Normal 2.2-4.2 [facility] Comment on above: Performed By: #### L 100.0100, L501.6710, L101.9900, L500.4050, L504.2610 ####[facility] [address] [place], [address] Glucose [Mass/Vol] 109 mg/dL High 70-99 [facility] Comment on above: Performed By: #### L 100.0100, L501.6710, L101.9900, L500.4050, L504.2610 ####[facility] [address] [place], [address] Potassium [Moles/Vol] 4.7 mmol/L Normal 3.3-5.1 [facility] Comment on above: Performed By: #### L 100.0100, L501.6710, L101.9900, L500.4050, L504.2610 ####[facility] [address] [place], [address] Sodium [Moles/Vol] 139 mmol/L Normal 133-145 [facility] Comment on above: Performed By: #### L 100.0100, L501.6710, L101.9900, L500.4050, L504.2610 ####[facility] [address] [place], [address] T PROT 6.4 g/dL Normal 5.9-8.4 [facility] Comment on above: Performed By: #### L 100.0100, L501.6710, L101.9900, L500.4050, L504.2610 ####[facility] [address] [place], [address] Urea nitrogen [Mass/Vol] 14 mg/dL Normal 4-19 [facility] Comment on above: Performed By: #### L 100.0100, L501.6710, L101.9900, L500.4050, L504.2610 ####[facility] [address] [place], [address] Erythrocyte Sed Rateon 07-24 SED RATE 7 mm/hr Normal 0-20 [facility] Comment on above: Performed By: #### L 100.0100, L501.6710, L101.9900, L500.4050, L504.2610 ####[facility] [address] [place], [place], [address] Erythrocyte sedimentation ra teOrdered By: Clement Lewis on 07-24-2024 ESR (Bld) [Velocity] 7 mm/h 0-20 [facility] LDHon 07-24-2024 LDH 272 U/L High 87-241 [facility] Comment on above: Order Comment: 1 Performed By: #### L 100.0100, L501.6710, L101.9900, L500.4050, L504.2610 ####[facility] [address] [place], [place], [address] Oncology Visit Reporton 07-12 Oncology Visit Report Normal [facility] Review by pathologistOrdered By: Clement Lewis on 07-24-2024 Pathologist review Ty (Unsp spec) [Interp] Reviewed [facility] Comment on above: Previous reported re sult: Antoinette funez Edited by: VERO on 08/26/24:1531SEE REPORT IN PATIENT'S EMR AMENDED REPORT 08/26/24 1531 PATH REV previously reported as: Antoinette funez Serum or plasma C reactive p rotein measurement (mass/volume)Ordered By: Clement Lewis on 07-24-2024 CRP [Mass/Vol] 3.35 mg/L High 0.0-3.0 [facility] .GFRon 07-18-2024 Estimated Glomerular Filtration Rate 62 ml/min/1.73sqm [facility] Comment on above: Result Comment: Stages of Chronic Kidney Disease (CKD) Stage Description eGFR(ml/min/1.73 sq.m.) CKD 1 Normal kidney function or >=90 normal kindney function with possible kidney damage (ex. Proteinuria) CKD 2 Kidney damage with mild loss 60-89 of kidney function CKD 3a Mild to moderate loss of kidney 45-59 function CKD 3b Moderate to severe loss of 30-44 of kindey function CKD 4 Severe loss of kidney function 15-29 CKD 5 Kidney failure <15 Note: (go live 2024) the eGFR calculation was updated to the 2020 CKD-EPI creatinine equation without a race factor to calculate the eGFR results. Performed By: #### D IFF, BMP, MORPH, CBC, GFR #### [address] [address] .Manual Diffon 07-18-2024 Basophil %, Manual 0.0 % Normal 0.0-2.5 [facility] Comment on above: Performed By: #### D IFF, BMP, MORPH, CBC, GFR #### [address] [address] Basophil, Abs Manual 0.0 10 3/mcL Normal 0.0-0.3 [facility] Comment on above: Performed By: #### D IFF, BMP, MORPH, CBC, GFR #### [address] [address] Eosinophil %, Manual 5.0 % Normal 0.0-6.0 [facility] Comment on above: Performed By: #### D IFF, BMP, MORPH, CBC, GFR #### [address] [address] Eosinophil, Abs Manual 1.7 10 3/mcL High 0.0-0.7 [facility] [facility] Comment on above: Performed By: #### D IFF, BMP, MORPH, CBC, GFR #### [address] [address] Lymphocyte %, Manual 86.0 % High 20.0-40.0 [facility] Comment on above: Performed By: #### D IFF, BMP, MORPH, CBC, GFR #### [address] [address] Lymphocyte, Abs Manual 29.4 10 3/mcL High 0.9-4.3 [facility] Comment on above: Performed By: #### D IFF, BMP, MORPH, CBC, GFR #### [place] [id number] Metamyelocyte 1.0 % Normal [facility] Comment on above: Performed By: #### D IFF, BMP, MORPH, CBC, GFR #### [place] [address] Monocyte %, Manual 4.0 % Normal 2.0-13.0 [facility] Comment on above: Performed By: #### D IFF, BMP, MORPH, CBC, GFR #### [address] [address] Monocyte, Abs Manual 1.4 10 3/mcL Normal 0.1-1.4 [facility] Comment on above: Performed By: #### D IFF, BMP, MORPH, CBC, GFR #### [address] [address] Neutrophil %, Manual 4.0 % Low 50.0-75.0 [facility] Comment on above: Performed By: #### D IFF, BMP, MORPH, CBC, GFR #### [address] [address] Neutrophil, Abs Manual 1.4 10 3/mcL Low 2.3-8.1 [facility] Comment on above: Performed By: #### D IFF, BMP, MORPH, CBC, GFR #### [address] [address] Nucleated RBC 0.0 /100 WBC Normal [facility] Comment on above: Performed By: #### D IFF, BMP, MORPH, CBC, GFR #### [address] [address] .Morphon 07-18-2024 Platelet Estimate Normal Normal [facility] Comment on above: Performed By: #### D IFF, BMP, MORPH, CBC, GFR #### [address] [address] RBC morphology finding Nom (Bld) Normal Normal [facility] Comment on above: Performed By: #### D IFF, BMP, MORPH, CBC, GFR #### [address] [address] BMPon 07-18-2024 BUN/Creatinine Ratio 8.3 ratio Low 10.0-22.0 [facility] Comment on above: Performed By: #### R ESCYNES #### [address] [address] Calcium [Mass/Vol] 8.5 mg/dL Low 8.7-10.4 [facility] Comment on above: Performed By: #### R CORINNE #### [address] [address] Chloride [Moles/Vol] 109 mmol/L Normal 98-110 [facility] Comment on above: Performed By: #### R CORINNE #### [address] [address] CO2 [Moles/Vol] 23 mmol/L Normal 22-32 [facility] Comment on above: Performed By: #### R CORINNE #### [address] [address] Creatinine [Mass/Vol] 1.21 mg/dL Normal 0.60-1.40 [facility] Comment on above: Result Comment: Test ing performed on Fanbase analyzer using enzymatic creatinine methodology. Performed By: #### R CORINNE #### [address] [address] Electrolyte Balance 10.0 mEq/L Normal 4.0-15.0 [facility] Comment on above: Performed By: #### R CORINNE #### [address] [address] Glucose [Mass/Vol] 72 mg/dL Low 82-115 [facility] Comment on above: Performed By: #### R CORINNE #### [address] [address] Potassium [Moles/Vol] 3.9 mmol/L Normal 3.5-5.0 [facility] Comment on above: Performed By: #### R CORINNE #### [address] [address] Sodium [Moles/Vol] 142 mmol/L Normal 136-145 [facility] Comment on above: Performed By: #### R ESCYNES #### [address] [address] Urea nitrogen [Mass/Vol] 10.0 mg/dL Normal 8.0-22.0 [facility] Comment on above: Performed By: #### R CORINNE #### [address] [address] CBCon 07-18-2024 Erythrocyte distribution width (RBC) [Ratio] 13.9 % Normal 11.5-15.5 [facility] Comment on above: Performed By: #### R ESCVID #### [place] [address] Hematocrit (Bld) [Volume fraction] 36.6 % Low 40.0-52.0 [facility] Comment on above: Performed By: #### R ESCVID #### [place] [address] Hgb 12.0 G/dL Low 13.0-17.5 [facility] Comment on above: Performed By: #### R ESCVID #### [place] [address] MCH (RBC) [Entitic mass] 28.0 pg Normal 27.0-33.0 [facility] Comment on above: Performed By: #### R ESCVID #### [place] [address] MCHC 32.9 G/dL Normal 32.0-36.0 [facility] Comment on above: Performed By: #### R ESCVID #### [place] [address] MCV (RBC) [Entitic vol] 85.1 fL Normal 81.0-100.0 [facility] Comment on above: Performed By: #### R ESCVID #### [place] [address] Platelet 159 10 3/mcL Normal 150-450 [facility] Comment on above: Performed By: #### R ESCVID #### [place] [address] Platelet mean volume (Bld) [Entitic vol] 6.9 fL Normal 6.4-10.5 [facility] Comment on above: Performed By: #### R ESCVID #### [place] [address] RBC 4.30 10 6/mcL Low 4.50-6.00 [facility] Comment on above: Performed By: #### R ESCVID #### [address] [address] WBC 34.2 10 3/mcL High 4.5-10.8 [facility] Comment on above: Performed By: #### R CORINNE #### [address] [address] MGon 07-18-2024 Magnesium [Mass/Vol] 1.8 mg/dL Normal 1.6-2.4 [facility] Comment on above: Performed By: #### R CORINNE #### [place] [address] .GFRon 07-17-2024 Estimated Glomerular Filtration Rate 66 ml/min/1.73sqm Normal [facility] Comment on above: Result Comment: Stages of Chronic Kidney Disease (CKD) Stage Description eGFR(ml/min/1.73 sq.m.) CKD 1 Normal kidney function or >=90 normal kindney function with possible kidney damage (ex. Proteinuria) CKD 2 Kidney damage with mild loss 60-89 of kidney function CKD 3a Mild to moderate loss of kidney 45-59 function CKD 3b Moderate to severe loss of 30-44 of kindey function CKD 4 Severe loss of kidney function 15-29 CKD 5 Kidney failure <15 Note: (go live 2024) the eGFR calculation was updated to the 2020 CKD-EPI creatinine equation without a race factor to calculate the eGFR results. Performed By: #### D IFF, BMP, MORPH, CBC, GFR #### [place] [address] .Manual Diffon 07-17-2024 Basophil %, Manual 0.0 % Normal 0.0-2.5 [facility] Comment on above: Performed By: #### D IFF, BMP, MORPH, CBC, GFR #### [place] [id number] Basophil, Abs Manual 0.0 10 3/mcL Normal 0.0-0.3 [facility] Comment on above: Performed By: #### D IFF, BMP, MORPH, CBC, GFR #### [place] [address] Eosinophil %, Manual 1.0 % Normal 0.0-6.0 [facility] Comment on above: Performed By: #### D IFF, BMP, MORPH, CBC, GFR #### [address] [address] Eosinophil, Abs Manual 0.3 10 3/mcL Normal 0.0-0.7 [facility] Comment on above: Performed By: #### D IFF, BMP, MORPH, CBC, GFR #### [address] [address] Lymphocyte %, Manual 55.0 % High 20.0-40.0 [facility] Comment on above: Performed By: #### D IFF, BMP, MORPH, CBC, GFR #### [address] [address] Lymphocyte, Abs Manual 19.0 10 3/mcL High 0.9-4.3 [facility] Comment on above: Performed By: #### D IFF, BMP, MORPH, CBC, GFR #### [address] [address] Monocyte %, Manual 1.0 % Low 2.0-13.0 [facility] Comment on above: Performed By: #### D IFF, BMP, MORPH, CBC, GFR #### [address] [address] Monocyte, Abs Manual 0.4 10 3/mcL Normal 0.1-1.4 [facility] Comment on above: Performed By: #### D IFF, BMP, MORPH, CBC, GFR #### [address] [address] Neutrophil %, Manual 43.0 % Low 50.0-75.0 [facility] Comment on above: Performed By: #### D IFF, BMP, MORPH, CBC, GFR #### [address] [address] Neutrophil, Abs Manual 14.8 10 3/mcL High 2.3-8.1 [facility] Comment on above: Performed By: #### D IFF, BMP, MORPH, CBC, GFR #### [address] [address] Nucleated RBC 0.0 /100 WBC Normal [facility] Comment on above: Performed By: #### D IFF, BMP, MORPH, CBC, GFR #### [place] [id number] .Morphon 07-17-2024 Anisocytosis Ql (Bld) 1+ Normal [facility] Comment on above: Performed By: #### D IFF, BMP, MORPH, CBC, GFR #### [place] [address] Ovalocytes 1+ Normal [facility] Comment on above: Performed By: #### D IFF, BMP, MORPH, CBC, GFR #### [place] [address] Platelet Estimate Normal [facility] Comment on above: Performed By: #### D IFF, BMP, MORPH, CBC, GFR #### [place] [address] Poik 1+ Normal [facility] Comment on above: Performed By: #### D IFF, BMP, MORPH, CBC, GFR #### [place] [address] CBCon 07-17-2024 Erythrocyte distribution width (RBC) [Ratio] 13.7 % Normal 11.5-15.5 [facility] Comment on above: Performed By: #### D IFF, BMP, MORPH, CBC, GFR #### [place] [address] Hematocrit (Bld) [Volume fraction] 38.2 % Low 40.0-52.0 [facility] Comment on above: Performed By: #### D IFF, BMP, MORPH, CBC, GFR #### [place] [address] Hgb 12.4 G/dL Low 13.0-17.5 [facility] Comment on above: Performed By: #### D IFF, BMP, MORPH, CBC, GFR #### [place] [address] MCH (RBC) [Entitic mass] 27.1 pg Normal 27.0-33.0 [facility] Comment on above: Performed By: #### D IFF, BMP, MORPH, CBC, GFR #### [address] [address] MCHC 32.3 G/dL Normal 32.0-36.0 [facility] Comment on above: Performed By: #### D IFF, BMP, MORPH, CBC, GFR #### [address] [address] MCV (RBC) [Entitic vol] 83.9 fL Normal 81.0-100.0 [facility] Comment on above: Performed By: #### D IFF, BMP, MORPH, CBC, GFR #### [address] [address] Platelet 155 10 3/mcL Normal 150-450 [facility] Comment on above: Performed By: #### D IFF, BMP, MORPH, CBC, GFR #### [place] [address] Platelet mean volume (Bld) [Entitic vol] 7.3 fL Normal 6.4-10.5 [facility] Comment on above: Performed By: #### D IFF, BMP, MORPH, CBC, GFR #### [place] [id number] RBC 4.56 10 6/mcL Normal 4.50-6.00 [facility] Comment on above: Performed By: #### D IFF, BMP, MORPH, CBC, GFR #### [place] [id number] WBC 34.5 10 3/mcL High 4.5-10.8 [facility] Comment on above: Performed By: #### D IFF, BMP, MORPH, CBC, GFR #### [address] [address] CMPon 07-17-2024 Albumin Level 3.0 G/dL Low 3.2-4.8 [facility] Comment on above: Performed By: #### D IFF, BMP, MORPH, CBC, GFR #### [place] [address] Albumin/Globulin [Mass ratio] 1.1 {ratio} Normal 0.9-1.6 [facility] Comment on above: Performed By: #### D IFF, BMP, MORPH, CBC, GFR #### [address] [address] ALP [Catalytic activity/Vol] 44 U/L Normal 38-126 [facility] Comment on above: Performed By: #### D IFF, BMP, MORPH, CBC, GFR #### [address] [address] ALT [Catalytic activity/Vol] 15 U/L Normal 12-55 [facility] Comment on above: Performed By: #### D IFF, BMP, MORPH, CBC, GFR #### [address] [address] AST [Catalytic activity/Vol] 23 U/L Normal 8-34 [facility] Comment on above: Performed By: #### D IFF, BMP, MORPH, CBC, GFR #### [place] [id number] Bili Total 1.20 mg/dL Normal 0.20-1.20 [facility] Comment on above: Result Comment: Use of this assay is not recommended for patients undergoing treatment with eltrombopag due to the potential for falsely elevated results. Performed By: #### D IFF, BMP, MORPH, CBC, GFR #### [address] [address] BUN/Creatinine Ratio 10.4 ratio Normal 10.0-22.0 [facility] Comment on above: Performed By: #### D IFF, BMP, MORPH, CBC, GFR #### [address] [address] Calcium [Mass/Vol] 9.0 mg/dL Normal 8.7-10.4 [facility] Comment on above: Performed By: #### D IFF, BMP, MORPH, CBC, GFR #### [address] [address] Chloride [Moles/Vol] 109 mmol/L Normal 98-110 [facility] Comment on above: Performed By: #### D IFF, BMP, MORPH, CBC, GFR #### [address] [address] CO2 [Moles/Vol] 30 mmol/L Normal 22-32 [facility] Comment on above: Performed By: #### D IFF, BMP, MORPH, CBC, GFR #### [address] [address] Creatinine [Mass/Vol] 1.15 mg/dL Normal 0.60-1.40 [facility] Comment on above: Result Comment: Test ing performed on Fanbase analyzer using enzymatic creatinine methodology. Performed By: #### D IFF, BMP, MORPH, CBC, GFR #### [address] [address] Electrolyte Balance 4.0 mEq/L Normal 4.0-15.0 [facility] Comment on above: Performed By: #### D IFF, BMP, MORPH, CBC, GFR #### [address] [address] Globulin 2.8 G/dL Normal 1.5-3.8 [facility] Comment on above: Performed By: #### D IFF, BMP, MORPH, CBC, GFR #### [address] [address] Glucose [Mass/Vol] 78 mg/dL Low 82-115 [facility] Comment on above: Performed By: #### D IFF, BMP, MORPH, CBC, GFR #### [address] [address] Potassium [Moles/Vol] 4.0 mmol/L Normal 3.5-5.0 [facility] Comment on above: Performed By: #### D IFF, BMP, MORPH, CBC, GFR #### [address] [address] Sodium [Moles/Vol] 143 mmol/L Normal 136-145 [facility] Comment on above: Performed By: #### D IFF, BMP, MORPH, CBC, GFR #### [address] [address] Total Protein 5.8 G/dL Normal 5.7-8.2 [facility] Comment on above: Performed By: #### D IFF, BMP, MORPH, CBC, GFR #### [place] [address] Urea nitrogen [Mass/Vol] 12.0 mg/dL Normal 8.0-22.0 [facility] Comment on above: Performed By: #### D IFF, BMP, MORPH, CBC, GFR #### [place] [id number] MGon 07-17-2024 Magnesium [Mass/Vol] 2.0 mg/dL Normal 1.6-2.4 [facility] Comment on above: Performed By: #### D IFF, BMP, MORPH, CBC, GFR #### [place] [address] PHOSon 07-17-2024 Phosphate [Mass/Vol] 2.8 mg/dL Normal 2.4-5.1 [facility] Comment on above: Result Comment: No te - New Reference Range in effect 19 Performed By: #### D IFF, BMP, MORPH, CBC, GFR #### [place] [address] .GFRon 07-16-2024 Estimated Glomerular Filtration Rate 59 ml/min/1.73sqm Normal [facility] Comment on above: Result Comment: Stages of Chronic Kidney Disease (CKD) Stage Description eGFR(ml/min/1.73 sq.m.) CKD 1 Normal kidney function or >=90 normal kindney function with possible kidney damage (ex. Proteinuria) CKD 2 Kidney damage with mild loss 60-89 of kidney function CKD 3a Mild to moderate loss of kidney 45-59 function CKD 3b Moderate to severe loss of 30-44 of kindey function CKD 4 Severe loss of kidney function 15-29 CKD 5 Kidney failure <15 Note: (go live 2024) the eGFR calculation was updated to the 2020 CKD-EPI creatinine equation without a race factor to calculate the eGFR results. Performed By: #### D IFF, BMP, MORPH, CBC, GFR #### [place] [address] .Manual Diffon 07-16-2024 Basophil %, Manual 0.0 % Normal 0.0-2.5 [facility] Comment on above: Performed By: #### D IFF, BMP, MORPH, CBC, GFR #### [address] [address] Basophil, Abs Manual 0.0 10 3/mcL Normal 0.0-0.3 [facility] Comment on above: Performed By: #### D IFF, BMP, MORPH, CBC, GFR #### [address] [address] Eosinophil %, Manual 2.0 % Normal 0.0-6.0 [facility] Comment on above: Performed By: #### D IFF, BMP, MORPH, CBC, GFR #### [address] [address] Eosinophil, Abs Manual 0.8 10 3/mcL High 0.0-0.7 [facility] Comment on above: Performed By: #### D IFF, BMP, MORPH, CBC, GFR #### [address] [address] Lymphocyte %, Manual 76.0 % High 20.0-40.0 [facility] Comment on above: Performed By: #### D IFF, BMP, MORPH, CBC, GFR #### [address] [address] Lymphocyte, Abs Manual 29.5 10 3/mcL High 0.9-4.3 [facility] Comment on above: Performed By: #### D IFF, BMP, MORPH, CBC, GFR #### [address] [address] Monocyte %, Manual 1.0 % Low 2.0-13.0 [facility] Comment on above: Performed By: #### D IFF, BMP, MORPH, CBC, GFR #### [address] [address] Monocyte, Abs Manual 0.4 10 3/mcL Normal 0.1-1.4 [facility] Comment on above: Performed By: #### D IFF, BMP, MORPH, CBC, GFR #### [address] [address] Neutrophil %, Manual 21.0 % Low 50.0-75.0 [facility] Comment on above: Performed By: #### D IFF, BMP, MORPH, CBC, GFR #### [place] [address] Neutrophil, Abs Manual 8.1 10 3/mcL Normal 2.3-8.1 [facility] Comment on above: Performed By: #### D IFF, BMP, MORPH, CBC, GFR #### [place] [address] Nucleated RBC 0.0 /100 WBC Normal [facility] Comment on above: Performed By: #### D IFF, BMP, MORPH, CBC, GFR #### [place] [address] .Morphon 07-16-2024 Anisocytosis Ql (Bld) 1+ Normal [facility] Comment on above: Performed By: #### D IFF, BMP, MORPH, CBC, GFR #### [place] [address] Ovalocytes 1+ Normal [facility] Comment on above: Performed By: #### D IFF, BMP, MORPH, CBC, GFR #### [place] [address] Platelet Estimate Slt Decreased Normal [facility] Comment on above: Performed By: #### D IFF, BMP, MORPH, CBC, GFR #### [place] [address] Poik 1+ Normal [facility] Comment on above: Performed By: #### D IFF, BMP, MORPH, CBC, GFR #### [place] [address] Polychrom 1+ Normal [facility] Comment on above: Performed By: #### D IFF, BMP, MORPH, CBC, GFR #### [place] [address] Smudge Cells 2+ Normal [facility] Comment on above: Performed By: #### D IFF, BMP, MORPH, CBC, GFR #### [address] [address] Differential Comment See Below Normal [facility] Comment on above: Result Comment: Diff erential performed on albumin smear Performed By: #### D IFF, BMP, MORPH, CBC, GFR #### [address] [address] BMPon 07-16-2024 BUN/Creatinine Ratio 14.2 ratio Normal 10.0-22.0 [facility] Comment on above: Performed By: #### D IFF, BMP, MORPH, CBC, GFR #### [place] [address] Calcium [Mass/Vol] 8.4 mg/dL Low 8.7-10.4 [facility] Comment on above: Performed By: #### D IFF, BMP, MORPH, CBC, GFR #### [place] [address] Chloride [Moles/Vol] 111 mmol/L High 98-110 [facility] Comment on above: Performed By: #### D IFF, BMP, MORPH, CBC, GFR #### [address] [address] CO2 [Moles/Vol] 24 mmol/L Normal 22-32 [facility] Comment on above: Performed By: #### D IFF, BMP, MORPH, CBC, GFR #### [address] [address] Creatinine [Mass/Vol] 1.27 mg/dL Normal 0.60-1.40 [facility] Comment on above: Result Comment: Test ing performed on Fanbase analyzer using enzymatic creatinine methodology. Performed By: #### D IFF, BMP, MORPH, CBC, GFR #### [address] [address] Electrolyte Balance 7.0 mEq/L Normal 4.0-15.0 [facility] Comment on above: Performed By: #### D IFF, BMP, MORPH, CBC, GFR #### [address] [address] Glucose [Mass/Vol] 72 mg/dL Low 82-115 [facility] Comment on above: Performed By: #### D IFF, BMP, MORPH, CBC, GFR #### [place] [address] Potassium [Moles/Vol] 4.0 mmol/L Normal 3.5-5.0 [facility] Comment on above: Performed By: #### D IFF, BMP, MORPH, CBC, GFR #### [place] [id number] Sodium [Moles/Vol] 142 mmol/L Normal 136-145 [facility] Comment on above: Performed By: #### D IFF, BMP, MORPH, CBC, GFR #### [place] [address] Urea nitrogen [Mass/Vol] 18.0 mg/dL Normal 8.0-22.0 [facility] Comment on above: Performed By: #### D IFF, BMP, MORPH, CBC, GFR #### [place] [address] CBCon 07-16-2024 Erythrocyte distribution width (RBC) [Ratio] 14.2 % Normal 11.5-15.5 [facility] Comment on above: Performed By: #### D IFF, BMP, MORPH, CBC, GFR #### [place] [address] Hematocrit (Bld) [Volume fraction] 34.1 % Low 40.0-52.0 [facility] Comment on above: Performed By: #### D IFF, BMP, MORPH, CBC, GFR #### [place] [address] Hgb 11.3 G/dL Low 13.0-17.5 [facility] Comment on above: Performed By: #### D IFF, BMP, MORPH, CBC, GFR #### [place] [address] MCH (RBC) [Entitic mass] 27.8 pg Normal 27.0-33.0 [facility] Comment on above: Performed By: #### D IFF, BMP, MORPH, CBC, GFR #### [address] [address] MCHC 33.0 G/dL Normal 32.0-36.0 [facility] Comment on above: Performed By: #### D IFF, BMP, MORPH, CBC, GFR #### [place] [address] MCV (RBC) [Entitic vol] 84.1 fL Normal 81.0-100.0 [facility] Comment on above: Performed By: #### D IFF, BMP, MORPH, CBC, GFR #### [place] [address] Platelet 115 10 3/mcL Low 150-450 [facility] Comment on above: Performed By: #### D IFF, BMP, MORPH, CBC, GFR #### [place] [address] Platelet mean volume (Bld) [Entitic vol] 7.5 fL Normal 6.4-10.5 [facility] Comment on above: Performed By: #### D IFF, BMP, MORPH, CBC, GFR #### [place] [address] RBC 4.05 10 6/mcL Low 4.50-6.00 [facility] Comment on above: Performed By: #### D IFF, BMP, MORPH, CBC, GFR #### [place] [address] WBC 38.8 10 3/mcL High 4.5-10.8 [facility] Comment on above: Performed By: #### D IFF, BMP, MORPH, CBC, GFR #### [place] [address] .GFRon 07-15-2024 Estimated Glomerular Filtration Rate 53 ml/min/1.73sqm Normal [facility] Comment on above: Result Comment: Stages of Chronic Kidney Disease (CKD) Stage Description eGFR(ml/min/1.73 sq.m.) CKD 1 Normal kidney function or >=90 normal kindney function with possible kidney damage (ex. Proteinuria) CKD 2 Kidney damage with mild loss 60-89 of kidney function CKD 3a Mild to moderate loss of kidney 45-59 function CKD 3b Moderate to severe loss of 30-44 of kindey function CKD 4 Severe loss of kidney function 15-29 CKD 5 Kidney failure <15 Note: (go live 2024) the eGFR calculation was updated to the 2020 CKD-EPI creatinine equation without a race factor to calculate the eGFR results. Performed By: #### D IFF, BMP, MORPH, CBC, GFR #### [place] [address] .Manual Diffon 07-15-2024 Basophil %, Manual 0.0 % Normal 0.0-2.5 [facility] Comment on above: Performed By: #### D IFF, BMP, MORPH, CBC, GFR #### [place] [address] Basophil, Abs Manual 0.0 10 3/mcL Normal 0.0-0.3 [facility] Comment on above: Performed By: #### D IFF, BMP, MORPH, CBC, GFR #### [place] [address] Eosinophil %, Manual 0.0 % Normal 0.0-6.0 [facility] Comment on above: Performed By: #### D IFF, BMP, MORPH, CBC, GFR #### [place] [address] Eosinophil, Abs Manual 0.0 10 3/mcL Normal 0.0-0.7 [facility] Comment on above: Performed By: #### D IFF, BMP, MORPH, CBC, GFR #### [place] [address] Lymphocyte %, Manual 73.0 % High 20.0-40.0 [facility] Comment on above: Performed By: #### D IFF, BMP, MORPH, CBC, GFR #### [place] [address] Lymphocyte, Abs Manual 28.3 10 3/mcL High 0.9-4.3 [facility] Comment on above: Performed By: #### D IFF, BMP, MORPH, CBC, GFR #### [place] [address] Monocyte %, Manual 1.0 % Low 2.0-13.0 [facility] Comment on above: Performed By: #### D IFF, BMP, MORPH, CBC, GFR #### [place] [address] Monocyte, Abs Manual 0.4 10 3/mcL Normal 0.1-1.4 [facility] Comment on above: Performed By: #### D IFF, BMP, MORPH, CBC, GFR #### [place] [address] Neutrophil %, Manual 26.0 % Low 50.0-75.0 [facility] Comment on above: Performed By: #### D IFF, BMP, MORPH, CBC, GFR #### [place] [address] Neutrophil, Abs Manual 10.1 10 3/mcL High 2.3-8.1 [facility] Comment on above: Performed By: #### D IFF, BMP, MORPH, CBC, GFR #### [place] [address] Nucleated RBC 0.0 /100 WBC Normal [facility] Comment on above: Performed By: #### D IFF, BMP, MORPH, CBC, GFR #### [place] [address] .Morphon 07-15-2024 Anisocytosis Ql (Bld) 1+ Normal [facility] Comment on above: Performed By: #### D IFF, BMP, MORPH, CBC, GFR #### [place] [address] Ovalocytes 1+ Normal [facility] Comment on above: Performed By: #### D IFF, BMP, MORPH, CBC, GFR #### [place] [address] Platelet Estimate Decreased Normal [facility] Comment on above: Performed By: #### D IFF, BMP, MORPH, CBC, GFR #### [place] [address] Poik 1+ Normal [facility] Comment on above: Performed By: #### D IFF, BMP, MORPH, CBC, GFR #### [address] [address] Smudge Cells 1+ Normal [facility] Comment on above: Performed By: #### D IFF, BMP, MORPH, CBC, GFR #### [place] [id number] Differential Comment See Below Normal [facility] Comment on above: Result Comment: Diff erential performed on albumin smear Performed By: #### D IFF, BMP, MORPH, CBC, GFR #### [address] [address] CBCon 07-15-2024 Erythrocyte distribution width (RBC) [Ratio] 14.0 % Normal 11.5-15.5 [facility] Comment on above: Performed By: #### D IFF, BMP, MORPH, CBC, GFR #### [place] [address] Hematocrit (Bld) [Volume fraction] 34.2 % Low 40.0-52.0 [facility] Comment on above: Performed By: #### D IFF, BMP, MORPH, CBC, GFR #### [place] [address] Hgb 11.2 G/dL Low 13.0-17.5 [facility] Comment on above: Performed By: #### D IFF, BMP, MORPH, CBC, GFR #### [place] [address] MCH (RBC) [Entitic mass] 28.1 pg Normal 27.0-33.0 [facility] Comment on above: Performed By: #### D IFF, BMP, MORPH, CBC, GFR #### [place] [id number] MCHC 32.8 G/dL Normal 32.0-36.0 [facility] Comment on above: Performed By: #### D IFF, BMP, MORPH, CBC, GFR #### [place] [address] MCV (RBC) [Entitic vol] 85.6 fL Normal 81.0-100.0 [facility] Comment on above: Performed By: #### D IFF, BMP, MORPH, CBC, GFR #### [address] [address] Platelet 90 10 3/mcL Low 150-450 [facility] Comment on above: Performed By: #### D IFF, BMP, MORPH, CBC, GFR #### [address] [address] Platelet mean volume (Bld) [Entitic vol] 7.7 fL Normal 6.4-10.5 [facility] Comment on above: Performed By: #### D IFF, BMP, MORPH, CBC, GFR #### [address] [address] RBC 4.00 10 6/mcL Low 4.50-6.00 [facility] Comment on above: Performed By: #### D IFF, BMP, MORPH, CBC, GFR #### [address] [address] WBC 38.8 10 3/mcL High 4.5-10.8 [facility] Comment on above: Performed By: #### D IFF, BMP, MORPH, CBC, GFR #### [address] [address] CMPon 07-15-2024 Albumin Level 2.2 G/dL Low 3.2-4.8 [facility] Comment on above: Performed By: #### D IFF, BMP, MORPH, CBC, GFR #### [address] [address] Albumin/Globulin [Mass ratio] 1.0 {ratio} Normal 0.9-1.6 [facility] Comment on above: Performed By: #### D IFF, BMP, MORPH, CBC, GFR #### [address] [address] ALP [Catalytic activity/Vol] 26 U/L Low 38-126 [facility] Comment on above: Performed By: #### D IFF, BMP, MORPH, CBC, GFR #### [address] [address] ALT [Catalytic activity/Vol] 10 U/L Low 12-55 [facility] Comment on above: Performed By: #### D IFF, BMP, MORPH, CBC, GFR #### [address] [address] AST [Catalytic activity/Vol] 22 U/L Normal 8-34 [facility] Comment on above: Performed By: #### D IFF, BMP, MORPH, CBC, GFR #### [address] [address] Bili Total 1.20 mg/dL Normal 0.20-1.20 [facility] Comment on above: Result Comment: Use of this assay is not recommended for patients undergoing treatment with eltrombopag due to the potential for falsely elevated results. Performed By: #### D IFF, BMP, MORPH, CBC, GFR #### [place] [id number] BUN/Creatinine Ratio 17.4 ratio Normal 10.0-22.0 [facility] Comment on above: Performed By: #### D IFF, BMP, MORPH, CBC, GFR #### [address] [address] Calcium [Mass/Vol] 8.0 mg/dL Low 8.7-10.4 [facility] Comment on above: Performed By: #### D IFF, BMP, MORPH, CBC, GFR #### [address] [address] Chloride [Moles/Vol] 112 mmol/L High 98-110 [facility] Comment on above: Performed By: #### D IFF, BMP, MORPH, CBC, GFR #### [address] [address] CO2 [Moles/Vol] 25 mmol/L Normal 22-32 [facility] Comment on above: Performed By: #### D IFF, BMP, MORPH, CBC, GFR #### [address] [address] Creatinine [Mass/Vol] 1.38 mg/dL Normal 0.60-1.40 [facility] Comment on above: Result Comment: Test ing performed on Fanbase analyzer using enzymatic creatinine methodology. Performed By: #### D IFF, BMP, MORPH, CBC, GFR #### [address] [address] Electrolyte Balance 5.0 mEq/L Normal 4.0-15.0 [facility] Comment on above: Performed By: #### D IFF, BMP, MORPH, CBC, GFR #### [address] [address] Globulin 2.1 G/dL Normal 1.5-3.8 [facility] Comment on above: Performed By: #### D IFF, BMP, MORPH, CBC, GFR #### [address] [address] Glucose [Mass/Vol] 82 mg/dL Normal 82-115 [facility] Comment on above: Performed By: #### D IFF, BMP, MORPH, CBC, GFR #### [address] [address] Potassium [Moles/Vol] 4.3 mmol/L Normal 3.5-5.0 [facility] Comment on above: Performed By: #### D IFF, BMP, MORPH, CBC, GFR #### [address] [address] Sodium [Moles/Vol] 142 mmol/L Normal 136-145 [facility] Comment on above: Performed By: #### D IFF, BMP, MORPH, CBC, GFR #### [address] [address] Total Protein 4.3 G/dL Low 5.7-8.2 [facility] Comment on above: Performed By: #### D IFF, BMP, MORPH, CBC, GFR #### [address] [address] Urea nitrogen [Mass/Vol] 24.0 mg/dL High 8.0-22.0 [facility] Comment on above: Performed By: #### D IFF, BMP, MORPH, CBC, GFR #### [address] [address] LACon 07-15-2024 Lactic Acid Lvl 1.1 mmol/L Normal 0.5-2.2 [facility] Comment on above: Performed By: #### D IFF, BMP, MORPH, CBC, GFR #### [facility] [address] [place] [address] MGon 07-15-2024 Magnesium [Mass/Vol] 2.2 mg/dL Normal 1.6-2.4 [facility] Comment on above: Performed By: #### D IFF, BMP, MORPH, CBC, GFR #### [facility] [address] [place] [address] PHOSon 07-15-2024 Phosphate [Mass/Vol] 2.0 mg/dL Low 2.4-5.1 [facility] Comment on above: Result Comment: No te - New Reference Range in effect 19 Performed By: #### D IFF, BMP, MORPH, CBC, GFR #### [address] [address] XR CHEST 1 VIEWon 07-15-2024 XR CHEST 1 VIEW ORIGINAL EXAMINATION: ONE XRAY VIEW OF THE CHEST 07/15/2024 6:13 am COMPARISON: Chest x-ray on 07/14/2024 HISTORY: ORDERING SYSTEM PROVIDED HISTORY: Reason for Exam: increased sob vent FINDINGS: Wire sutures are intact. The heart size is normal. 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 Bilateral perihilar infiltrates and right basilar consolidation are similar to the prior day. There is no pleural fluid or pneumothorax. IMPRESSION: Bilateral perihilar infiltrates and right basilar consolidation are unchanged. This may be pneumonia or pulmonary edema. Interpreted by: Balbir Perez MD Preliminary Report By: Balbir Perez MD Electronically signed By Balbir Perez MD Dictated Date: 07/15/2024 6:14:52 AM Prelim Date: 07/15/2024 6:16:36 AM Sign Date: 07/15/2024 6:16:36 AM Ordering Provider: [place] [facility] .GFRon 07-14-2024 Estimated Glomerular Filtration Rate 54 ml/min/1.73sqm [facility] Comment on above: Result Comment: Stages of Chronic Kidney Disease (CKD) Stage Description eGFR(ml/min/1.73 sq.m.) CKD 1 Normal kidney function or >=90 normal kindney function with possible kidney damage (ex. Proteinuria) CKD 2 Kidney damage with mild loss 60-89 of kidney function CKD 3a Mild to moderate loss of kidney 45-59 function CKD 3b Moderate to severe loss of 30-44 of kindey function CKD 4 Severe loss of kidney function 15-29 CKD 5 Kidney failure <15 Note: ( live 06/17/2024) the eGFR calculation was updated to the 2020 CKD-EPI creatinine equation without a race factor to calculate the eGFR results. Performed By: #### D IFF, BMP, MORPH, CBC, GFR #### [address] [address] Estimated Glomerular Filtration Rate 49 ml/min/1.73sqm Normal [facility] Comment on above: Result Comment: Stages of Chronic Kidney Disease (CKD) Stage Description eGFR(ml/min/1.73 sq.m.) CKD 1 Normal kidney function or >=90 normal kindney function with possible kidney damage (ex. Proteinuria) CKD 2 Kidney damage with mild loss 60-89 of kidney function CKD 3a Mild to moderate loss of kidney 45-59 function CKD 3b Moderate to severe loss of 30-44 of kindey function CKD 4 Severe loss of kidney function 15-29 CKD 5 Kidney failure <15 Note: ( live 06/17/2024) the eGFR calculation was updated to the 2020 CKD-EPI creatinine equation without a race factor to calculate the eGFR results. Performed By: #### T ALEIDA #### [address] [address] .Manual Diffon 07-14-2024 Bands 1.0 % Normal 0.0-5.0 [facility] Comment on above: Performed By: #### D IFF, BMP, MORPH, CBC, GFR #### [address] [address] Basophil %, Manual 0.0 % Normal 0.0-2.5 [facility] Comment on above: Performed By: #### D IFF, BMP, MORPH, CBC, GFR #### [address] [address] Basophil, Abs Manual 0.0 10 3/mcL Normal 0.0-0.3 [facility] Comment on above: Performed By: #### D IFF, BMP, MORPH, CBC, GFR #### [address] [address] Eosinophil %, Manual 0.0 % Normal 0.0-6.0 [facility] Comment on above: Performed By: #### D IFF, BMP, MORPH, CBC, GFR #### [address] [address] Eosinophil, Abs Manual 0.0 10 3/mcL Normal 0.0-0.7 [facility] Comment on above: Performed By: #### D IFF, BMP, MORPH, CBC, GFR #### [address] [address] Lymphocyte %, Manual 85.0 % High 20.0-40.0 [facility] Comment on above: Performed By: #### D IFF, BMP, MORPH, CBC, GFR #### [address] [address] Lymphocyte, Abs Manual 71.2 10 3/mcL High 0.9-4.3 [facility] Comment on above: Performed By: #### D IFF, BMP, MORPH, CBC, GFR #### [address] [address] Monocyte %, Manual 0.0 % Low 2.0-13.0 [facility] Comment on above: Performed By: #### D IFF, BMP, MORPH, CBC, GFR #### [address] [address] Monocyte, Abs Manual 0.0 10 3/mcL Low 0.1-1.4 [facility] Comment on above: Performed By: #### D IFF, BMP, MORPH, CBC, GFR #### [address] [address] Neutrophil %, Manual 14.0 % Low 50.0-75.0 [facility] Comment on above: Performed By: #### D IFF, BMP, MORPH, CBC, GFR #### [address] [address] Neutrophil, Abs Manual 12.6 10 3/mcL High 2.3-8.1 [facility] Comment on above: Performed By: #### D IFF, BMP, MORPH, CBC, GFR #### [place] [id number] Nucleated RBC 0.0 /100 WBC Normal [facility] Comment on above: Performed By: #### D IFF, BMP, MORPH, CBC, GFR #### [place] [id number] Atypical Lymphs 6.0 % High 0.0-5.0 [facility] Comment on above: Performed By: #### T IVELISSE #### [place] [id number] Aytpical Lymph, Abs Manual 5.1 10 3/mcL High 0.0-0.5 [facility] Comment on above: Performed By: #### T IVELISSE #### [place] [address] Bands 3.0 % Normal 0.0-5.0 [facility] Comment on above: Performed By: #### T IVELISSE #### [address] [address] Basophil %, Manual 0.0 % Normal 0.0-2.5 [facility] Comment on above: Performed By: #### T IVELISSE #### [address] [address] Basophil, Abs Manual 0.0 10 3/mcL Normal 0.0-0.3 [facility] Comment on above: Performed By: #### T IVELISSE #### [address] [address] Eosinophil %, Manual 0.0 % Normal 0.0-6.0 [facility] Comment on above: Performed By: #### T ROPLALIT #### [place] [id number] Eosinophil, Abs Manual 0.0 10 3/mcL Normal 0.0-0.7 [facility] Comment on above: Performed By: #### T ROPLALIT #### [place] [address] Lymphocyte %, Manual 75.0 % High 20.0-40.0 [facility] Comment on above: Performed By: #### T IVELISSE #### [place] [id number] Lymphocyte, Abs Manual 64.3 10 3/mcL High 0.9-4.3 [facility] Comment on above: Performed By: #### T IVELISSE #### [place] [address] Monocyte %, Manual 3.0 % Normal 2.0-13.0 [facility] Comment on above: Performed By: #### T IVELISSE #### [place] [id number] Monocyte, Abs Manual 2.6 10 3/mcL High 0.1-1.4 [facility] Comment on above: Performed By: #### T IVELISSE #### [place] [address] Neutrophil %, Manual 13.0 % Low 50.0-75.0 [facility] Comment on above: Performed By: #### T IVELISSE #### [place] [address] Neutrophil, Abs Manual 13.7 10 3/mcL High 2.3-8.1 [facility] Comment on above: Performed By: #### T IVELISSE #### [place] [address] Nucleated RBC 0.0 /100 WBC Normal [facility] Comment on above: Performed By: #### T IVELISSE #### [place] [address] .Morphon 07-14-2024 Anisocytosis Ql (Bld) 1+ Normal [facility] Comment on above: Performed By: #### D IFF, BMP, MORPH, CBC, GFR #### [place] [address] Differential Comment See Below Normal [facility] Comment on above: Result Comment: Diff erential performed on albumin smear Performed By: #### D IFF, BMP, MORPH, CBC, GFR #### [place] [address] Ovalocytes 1+ Normal [facility] Comment on above: Performed By: #### D IFF, BMP, MORPH, CBC, GFR #### [place] [address] Platelet Estimate Slt Decreased [facility] Comment on above: Performed By: #### D IFF, BMP, MORPH, CBC, GFR #### [place] [address] Poik 1+ Normal [facility] Comment on above: Performed By: #### D IFF, BMP, MORPH, CBC, GFR #### [place] [address] Smudge Cells 3+ Normal [facility] Comment on above: Performed By: #### D IFF, BMP, MORPH, CBC, GFR #### [place] [address] Anisocytosis Ql (Bld) 1+ Normal [facility] Comment on above: Performed By: #### T IVELISSE #### [place] [address] Ovalocytes 1+ Normal [facility] Comment on above: Performed By: #### T IVELISSE #### [place] [address] Platelet Estimate Slt Decreased [facility] Comment on above: Performed By: #### T IVELISSE #### [place] [address] CBCon 07-14-2024 Erythrocyte distribution width (RBC) [Ratio] 14.2 % Normal 11.5-15.5 [facility] Comment on above: Performed By: #### D IFF, BMP, MORPH, CBC, GFR #### [place] [address] Hematocrit (Bld) [Volume fraction] 40.7 % Normal 40.0-52.0 [facility] Comment on above: Performed By: #### D IFF, BMP, MORPH, CBC, GFR #### [place] [address] Hgb 12.8 G/dL Low 13.0-17.5 [facility] Comment on above: Performed By: #### D IFF, BMP, MORPH, CBC, GFR #### [place] [address] MCH (RBC) [Entitic mass] 27.2 pg Normal 27.0-33.0 [facility] Comment on above: Performed By: #### D IFF, BMP, MORPH, CBC, GFR #### [place] [address] MCHC 31.5 G/dL Low 32.0-36.0 [facility] Comment on above: Performed By: #### D IFF, BMP, MORPH, CBC, GFR #### [place] [address] MCV (RBC) [Entitic vol] 86.3 fL Normal 81.0-100.0 [facility] Comment on above: Performed By: #### D IFF, BMP, MORPH, CBC, GFR #### [place] [address] Platelet 128 10 3/mcL Low 150-450 [facility] Comment on above: Performed By: #### D IFF, BMP, MORPH, CBC, GFR #### [place] [address] Platelet mean volume (Bld) [Entitic vol] 7.7 fL Normal 6.4-10.5 [facility] Comment on above: Performed By: #### D IFF, BMP, MORPH, CBC, GFR #### [place] [address] RBC 4.72 10 6/mcL Normal 4.50-6.00 [facility] Comment on above: Performed By: #### D IFF, BMP, MORPH, CBC, GFR #### [place] [address] WBC 83.8 10 3/mcL Critically abnormal 4.5-10.8 [facility] Comment on above: Performed By: #### D IFF, BMP, MORPH, CBC, GFR #### [place] [address] Erythrocyte distribution width (RBC) [Ratio] 13.9 % Normal 11.5-15.5 [facility] Comment on above: Performed By: #### T IVELISSE #### [place] [address] Hematocrit (Bld) [Volume fraction] 44.3 % Normal 40.0-52.0 [facility] Comment on above: Performed By: #### T IVELISSE #### [place] [address] Hgb 14.1 G/dL Normal 13.0-17.5 [facility] Comment on above: Performed By: #### T IVELISSE #### [place] [address] MCH (RBC) [Entitic mass] 27.2 pg Normal 27.0-33.0 [facility] Comment on above: Performed By: #### T IVELISSE #### [place] [address] MCHC 31.7 G/dL Low 32.0-36.0 [facility] Comment on above: Performed By: #### T IVELISSE #### [place] [address] MCV (RBC) [Entitic vol] 85.9 fL Normal 81.0-100.0 [facility] Comment on above: Performed By: #### T IVELISSE #### [place] [address] Platelet 130 10 3/mcL Low 150-450 [facility] Comment on above: Performed By: #### T IVELISSE #### [place] [address] Platelet mean volume (Bld) [Entitic vol] 7.9 fL Normal 6.4-10.5 [facility] Comment on above: Performed By: #### T IVELISSE #### [place] [address] RBC 5.16 10 6/mcL Normal 4.50-6.00 [facility] Comment on above: Performed By: #### T IVELISSE #### [place] [address] WBC 85.7 10 3/mcL Critically abnormal 4.5-10.8 [facility] Comment on above: Performed By: #### T ROP #### [place] [id number] CMPon 07-14-2024 Albumin Level 2.8 G/dL Low 3.2-4.8 [facility] Comment on above: Performed By: #### D IFF, BMP, MORPH, CBC, GFR #### [place] [address] Albumin/Globulin [Mass ratio] 1.3 {ratio} Normal 0.9-1.6 [facility] Comment on above: Performed By: #### D IFF, BMP, MORPH, CBC, GFR #### [place] [address] ALP [Catalytic activity/Vol] 30 U/L Low 38-126 [facility] Comment on above: Performed By: #### D IFF, BMP, MORPH, CBC, GFR #### [place] [address] ALT [Catalytic activity/Vol] 12 U/L Normal 12-55 [facility] Comment on above: Performed By: #### D IFF, BMP, MORPH, CBC, GFR #### [place] [address] AST [Catalytic activity/Vol] 25 U/L Normal 8-34 [facility] Comment on above: Performed By: #### D IFF, BMP, MORPH, CBC, GFR #### [place] [address] Bili Total 1.60 mg/dL High 0.20-1.20 [facility] Comment on above: Result Comment: Use of this assay is not recommended for patients undergoing treatment with eltrombopag due to the potential for falsely elevated results. Performed By: #### D IFF, BMP, MORPH, CBC, GFR #### [place] [address] BUN/Creatinine Ratio 16.2 ratio Normal 10.0-22.0 [facility] Comment on above: Performed By: #### D IFF, BMP, MORPH, CBC, GFR #### [address] [address] Calcium [Mass/Vol] 7.8 mg/dL Low 8.7-10.4 [facility] Comment on above: Performed By: #### D IFF, BMP, MORPH, CBC, GFR #### [address] [address] Chloride [Moles/Vol] 114 mmol/L High 98-110 [facility] Comment on above: Performed By: #### D IFF, BMP, MORPH, CBC, GFR #### [address] [address] CO2 [Moles/Vol] 22 mmol/L Normal 22-32 [facility] Comment on above: Performed By: #### D IFF, BMP, MORPH, CBC, GFR #### [address] [address] Creatinine [Mass/Vol] 1.36 mg/dL Normal 0.60-1.40 [facility] Comment on above: Result Comment: Test ing performed on Fanbase analyzer using enzymatic creatinine methodology. Performed By: #### D IFF, BMP, MORPH, CBC, GFR #### [address] [address] Electrolyte Balance 7.0 mEq/L Normal 4.0-15.0 [facility] Comment on above: Performed By: #### D IFF, BMP, MORPH, CBC, GFR #### [address] [address] Globulin 2.2 G/dL Normal 1.5-3.8 [facility] Comment on above: Performed By: #### D IFF, BMP, MORPH, CBC, GFR #### [address] [address] Glucose [Mass/Vol] 95 mg/dL Normal 82-115 [facility] Comment on above: Performed By: #### D IFF, BMP, MORPH, CBC, GFR #### [address] [address] Potassium [Moles/Vol] 4.2 mmol/L Normal 3.5-5.0 [facility] Comment on above: Performed By: #### D IFF, BMP, MORPH, CBC, GFR #### [address] [address] Sodium [Moles/Vol] 143 mmol/L Normal 136-145 [facility] Comment on above: Performed By: #### D IFF, BMP, MORPH, CBC, GFR #### [place] [id number] Total Protein 5.0 G/dL Low 5.7-8.2 [facility] Comment on above: Performed By: #### D IFF, BMP, MORPH, CBC, GFR #### [place] [id number] Urea nitrogen [Mass/Vol] 22.0 mg/dL Normal 8.0-22.0 [facility] Comment on above: Performed By: #### D IFF, BMP, MORPH, CBC, GFR #### [place] [id number] Albumin Level 3.2 G/dL Normal 3.2-4.8 [facility] Comment on above: Performed By: #### T IVELISSE #### [place] [id number] Albumin/Globulin [Mass ratio] 1.3 {ratio} Normal 0.9-1.6 [facility] Comment on above: Performed By: #### T IVELISSE #### [address] [address] ALP [Catalytic activity/Vol] 36 U/L Low 38-126 [facility] Comment on above: Performed By: #### T IVELISSE #### [address] [address] ALT [Catalytic activity/Vol] 14 U/L Normal 12-55 [facility] Comment on above: Performed By: #### T IVELISSE #### [address] [address] AST [Catalytic activity/Vol] 26 U/L Normal 8-34 [facility] Comment on above: Performed By: #### T IVELISSE #### [address] [address] Bili Total 1.80 mg/dL High 0.20-1.20 [facility] Comment on above: Result Comment: Use of this assay is not recommended for patients undergoing treatment with eltrombopag due to the potential for falsely elevated results. Performed By: #### T IVELISSE #### [place] [id number] BUN/Creatinine Ratio 14.3 ratio Normal 10.0-22.0 [facility] Comment on above: Performed By: #### T IVELISSE #### [place] [id number] Calcium [Mass/Vol] 8.3 mg/dL Low 8.7-10.4 [facility] Comment on above: Performed By: #### T IVELISSE #### [place] [id number] Chloride [Moles/Vol] 113 mmol/L High 98-110 [facility] Comment on above: Performed By: #### T IVELISSE #### [place] [id number] CO2 [Moles/Vol] 21 mmol/L Low 22-32 [facility] Comment on above: Performed By: #### T IVELISSE #### [place] [id number] Creatinine [Mass/Vol] 1.47 mg/dL High 0.60-1.40 [facility] Comment on above: Result Comment: Test ing performed on Fanbase analyzer using enzymatic creatinine methodology. Performed By: #### T IVELISSE #### [place] [id number] Electrolyte Balance 10.0 mEq/L Normal 4.0-15.0 [facility] Comment on above: Performed By: #### T IVELISSE #### [place] [id number] Globulin 2.4 G/dL Normal 1.5-3.8 [facility] Comment on above: Performed By: #### T IVELISSE #### [place] [address] Glucose [Mass/Vol] 96 mg/dL Normal 82-115 [facility] Comment on above: Performed By: #### T IVELISSE #### [place] [id number] Potassium [Moles/Vol] 4.1 mmol/L Normal 3.5-5.0 [facility] Comment on above: Performed By: #### T IVELISSE #### [place] [address] Sodium [Moles/Vol] 144 mmol/L Normal 136-145 [facility] Comment on above: Performed By: #### T IVELISSE #### [place] [address] Total Protein 5.6 G/dL Low 5.7-8.2 [facility] Comment on above: Performed By: #### T IVELISSE #### [place] [address] Urea nitrogen [Mass/Vol] 21.0 mg/dL Normal 8.0-22.0 [facility] Comment on above: Performed By: #### T IVELISSE #### [place] [address] CVFLURVon 07-14-2024 FLU A PCR Negative Normal Negative [facility] Comment on above: Result Comment: [place] [id number] Performed By: #### D IFF, BMP, MORPH, CBC, GFR #### [place] [address] FLU B PCR Negative Normal Negative [facility] Comment on above: Result Comment: [place] [id number] Performed By: #### D IFF, BMP, MORPH, CBC, GFR #### [place] [address] RSV PCR Negative Normal Negative [facility] Comment on above: Result Comment: [place] [id number] Performed By: #### D IFF, BMP, MORPH, CBC, GFR #### [place] [address] SARS-CoV-2 (COVID-19) RNA DENICE+probe Ql (Unsp spec) Negative Normal Negative [facility] Comment on above: Result Comment: Note s [id number] This test has been authorized by FDA under an EUA for use by authorized laboratories and has not been FDA cleared or approved. Results from the Xpert Xpress SARS-CoV-2/Flu/RSV or Xpert Xpress SARS-CoV-2 only test should be correlated with the clinical history, epidemiological data, and other data available to the clinician evaluating the patient. Performance of the Xpert Xpress SARS-CoV-2/Flu/RSV or Xpert Xpress SARS-CoV-2 only test has only been established in nasopharyngeal swab specimens. Erroneous test results might occur from improper specimen collection; failure to follow the recommended sample collection, handling, and storage procedures; technical error; or sample mix-up.False negative results may occur if virus is present at levels below the analytical limit of detection. Viral nucleic acid may persist in vivo, independent of virus viability. Detection of analyte target(s) does not imply that the corresponding virus(es) are infectious or are the causative agents for clinical symptoms.Recent patient exposure to FluMist or other live attenuated influenza vaccines may cause inaccurate positive results. Performed By: #### D IFF, BMP, MORPH, CBC, GFR #### [address] [address] LACon 07-14-2024 Lactic Acid Lvl 3.4 mmol/L High 0.5-2.2 [facility] Comment on above: Performed By: #### T ROP #### [address] [address] Lactic Acid Lvl 2.8 mmol/L High 0.5-2.2 [facility] Comment on above: Performed By: #### D IFF, BMP, MORPH, CBC, GFR #### [address] [address] Lactic Acid Lvl 3.0 mmol/L High 0.5-2.2 [facility] Comment on above: Performed By: #### D IFF, BMP, MORPH, CBC, GFR #### [address] [address] Lactic Acid Lvl 3.0 mmol/L High 0.5-2.2 [facility] Comment on above: Performed By: #### C MP, MORPH, MG, LAC, TROPHS, CBC, GFR, MYCO, DIFF #### [place] [address] MGon 07-14-2024 Magnesium [Mass/Vol] 1.4 mg/dL Low 1.6-2.4 [facility] Comment on above: Performed By: #### T ROPHS #### [place] [address] MRSAPCRon 07-14-2024 MRSA (PCR) Not detected Normal Not Detected [facility] Comment on above: Result Comment: Note s [id number] Performed By: #### M RSAPCR #### [place] [address] MRSA PCR Int Normal [facility] Comment on above: Result Comment: MRSA DNA not detected by Real-Time Polymerase Chain Reaction (PCR). A negative result may be due to intermittent colonization. Colonization may vary depending on patient treatment, patient status, or exposure to high-risk environments. As with all PCR based in vitro diagnostic tests, extremely low levels of target below the limit of detection of the assay may be detected, but results may not be reproducible. See Below Performed By: #### M RSAPCR #### [place] [address] MYCOon 07-14-2024 Mycoplasma IgM Negative Normal [facility] Comment on above: Result Comment: INTE RPRETATION OF MYCOPLASMA IgM: Negative: IgM to M. pneumoniae Absent, or at levels below the assay limit of detection. Positive: IgM to M. pneumoniae Present. Invalid: Test results are invalid due to invalid internal control. Assay was performed in duplicate. Repeat testing is suggested if clinically indicated. Performed By: #### T ROPHS #### [place] [address] Mycoplasma IgG Negative [facility] Comment on above: Result Comment: INTE RPRETATION OF MYCOPLASMA IgG BY EIA: Negative: No detectable M. pneumoniae IgG antibody. Positive: Mycoplasma pneumoniae IgG antibody Detected. Equivocal: Equivocal for IgG antibodies to Mycoplasma pneumoniae. Suggest repeat testing in 10-14 days. Performed By: #### T ROPHS #### [place] [address] RESCVIDon 03-03-2025 Adenovirus Not detected Normal Not Detected [facility] Comment on above: Performed By: #### R ESCVID #### [facility] [address] [place] [address] Bordetella Parapertussis Not detected Normal Not Detected [facility] Comment on above: Performed By: #### R ESCVID #### [facility] [address] [place] [address] Bordetella Pertussis Not detected Normal Not Detected [facility] Comment on above: Performed By: #### R ESCVID #### [facility] [address] [place] [address] Chlamydophila pneumoniae Not detected Normal Not Detected [facility] Comment on above: Performed By: #### R ESCVID #### [facility] [address] [place] [address] Coronavirus 229E (Not COVID-19) Not detected Normal Not Detected [facility] Comment on above: Performed By: #### R ESCVID #### [facility] [address] [place] [address] Coronavirus HKU1 (Not COVID-19) Not detected Normal Not Detected [facility] Comment on above: Performed By: #### R ESCVID #### [facility] [address] [place] [address] Coronavirus NL63 (Not COVID-19) Not detected Normal Not Detected [facility] Comment on above: Performed By: #### R ESCVID #### [facility] [address] [place] [address] Coronavirus OC43 (Not COVID-19) Not detected Normal Not Detected [facility] Comment on above: Performed By: #### R ESCVID #### [facility] [address] [place], [place] [id number] Human Metapneumovirus Not detected Normal Not Detected [facility] Comment on above: Performed By: #### R ESCVID #### [facility] [address] [place] [address] Influenza A Not detected Normal Not Detected [facility] Comment on above: Performed By: #### R ESCVID #### [facility] [address] [place] [address] Influenza B Not detected Normal Not Detected [facility] Comment on above: Performed By: #### R ESCVID #### [facility] [address] [place], [place] [id number] Mycoplasma pneumoniae Not detected Normal Not Detected [facility] Comment on above: Performed By: #### R ESCVID #### [facility] [address] [place] [address] Parainfluenza 1 Not detected Normal Not Detected [facility] Comment on above: Performed By: #### R ESCVID #### [facility] [address] [place] [address] Parainfluenza 2 Not detected Normal Not Detected [facility] Comment on above: Performed By: #### R ESCVID #### [place] [address] Parainfluenza 3 Not detected Normal Not Detected [facility] Comment on above: Performed By: #### R ESCVID #### [facility] [address] [place] [address] Parainfluenza 4 Not detected Normal Not Detected [facility] Comment on above: Performed By: #### R ESCVID #### [place] [address] Respiratory Syncytial Virus Not detected Normal Not Detected [facility] Comment on above: Performed By: #### R ESCVID #### [place] [address] Rhinovirus/Enterovirus Not detected Normal Not Detecte d [facility] Comment on above: Performed By: #### R ESCVID #### [place] [id number] SARS-CoV-2 (COVID-19) RNA DENICE+probe Ql (Unsp spec) Not detected Normal Not Detected [facility] Comment on above: Result Comment: This assay has been validated in the [facility] for use with nasopharyngeal specimens in [facility]. If a non-validated specimen or test collection method was used, please interpret the results with caution, especially if the test result is negative. A positive test result for COVID-19 indicates that RNA from SARS-CoV-2 was detected, and the patient is infected with the virus and presumed to be contagious. Laboratory test results should always be considered in the context of clinical observations and epidemiological data in making a final diagnosis and patient management decisions. Patient management should follow current CDC guidelines. A negative test result for this test means that SARS-CoV-2 RNA was not present in the specimen above the limit of detection. However, a negative result does not rule out COVID-19 and should not be used as the sole basis for treatment or patient management decisions. A negative result does not exclude the possibility of COVID-19. When diagnostic testing is negative, the possibility of a false negative result should be considered in the context of a patient's recent exposures and the presence of clinical signs and symptoms consistent with COVID-19. The possibility of a false negative result should especially be considered if the patient???s recent exposures or clinical presentation indicate that COVID-19 is likely, and diagnostic tests for other causes of illness (e.g., other respiratory illness) are negative. If COVID-19 is still suspected based on exposure history together with other clinical findings, re-testing should be considered by healthcare providers in consultation with public health authorities. Performed By: #### R ESCVID #### [address] 07-14-2024 High Sensitivity Troponin I 180 ng/L High [address] [place] [address] MAIN Comment on above: Result Comment: High Sensitive Troponin I Reference Ranges: Female: 0-34 ng/L Male: 0-54 ng/L Testing performed on [employer] IM analyzer using direct chemiluminescent technology. Performed By: #### T ROPHS #### [place] [address] High Sensitivity Troponin I 204 ng/L High [address] MAIN Comment on above: Result Comment: High Sensitive Troponin I Reference Ranges: Female: 0-34 ng/L Male: 0-54 ng/L Testing performed on [employer] IM analyzer using direct chemiluminescent technology. Performed By: #### D IFF, BMP, MORPH, CBC, GFR #### [place] [address] High Sensitivity Troponin I 150 ng/L High 0-54 [facility] Comment on above: Result Comment: High Sensitive Troponin I Reference Ranges: Female: 0-34 ng/L Male: 0-54 ng/L Testing performed on [employer] analyzer using direct chemiluminescent technology. Performed By: #### C MP, MORPH, MG, LAC, TROPHS, CBC, GFR, MYCO, DIFF #### [address] [address] UAon 07-14-2024 Color (U) Yellow Normal [facility] Comment on above: Performed By: #### D IFF, BMP, MORPH, CBC, GFR #### [place] [address] Glucose (U) [Mass/Vol] Negative Normal Negative [facility] Comment on above: Performed By: #### D IFF, BMP, MORPH, CBC, GFR #### [place] [address] Ketones Ql (U) Trace Normal Neg-Trace [facility] Comment on above: Performed By: #### D IFF, BMP, MORPH, CBC, GFR #### [place] [address] UA Appear Clear Normal Clear [facility] Comment on above: Performed By: #### D IFF, BMP, MORPH, CBC, GFR #### [address] [address] UA Blood Negative Normal Neg-Trace [facility] Comment on above: Performed By: #### D IFF, BMP, MORPH, CBC, GFR #### [place] [id number] UA Leuk Est Negative Normal Negative [facility] Comment on above: Performed By: #### D IFF, BMP, MORPH, CBC, GFR #### [place] [id number] UA Nitrite Negative Normal Negative [facility] Comment on above: Performed By: #### D IFF, BMP, MORPH, CBC, GFR #### [place] [id number] UA pH 5.0 Normal 5.0 - 8.0 [facility] Comment on above: Performed By: #### D IFF, BMP, MORPH, CBC, GFR #### [facility] [address] [place] [address] UA Protein Trace Normal Negative [facility] Comment on above: Performed By: #### D IFF, BMP, MORPH, CBC, GFR #### [facility] [address] [place] [address] UA Spec Grav >=1.030 Abnormal 1.006-1.029 [facility] Comment on above: Performed By: #### D IFF, BMP, MORPH, CBC, GFR #### [facility] [address] [place] [address] UA Specimen Type Clean Catch Normal [facility] Comment on above: Performed By: #### D IFF, BMP, MORPH, CBC, GFR #### [address] [address] UA Urobilinogen 0.2 E.U./dL Normal 0.2-1.0 [facility] Comment on above: Performed By: #### D IFF, BMP, MORPH, CBC, GFR #### [address] [address] Urobilinogen (U) [Mass/Vol] Negative Normal Neg-Trace [facility] Comment on above: Performed By: #### D IFF, BMP, MORPH, CBC, GFR #### [address] [address] XR CHEST 1 VIEWon 07-14-2024 XR CHEST 1 VIEW ORIGINAL EXAMINATION: ONE XRAY VIEW OF THE CHEST 07/14/2024 6:31 am COMPARISON: None. HISTORY: ORDERING SYSTEM PROVIDED HISTORY: Reason for Exam: Sepsis, evaluate for Pneumonia FINDINGS: Central interstitial and alveolar haziness bilaterally. No definite large effusion. Multiple heart valve prosthetic devices are noted. Atherosclerotic calcification of the aorta is present. Atrial appendage clip is in place. IMPRESSION: Findings suggestive of congestion/edema is suspected, superimposed developing infectious or inflammatory process is also considered. Interpreted by: Jim Pereyra MD Preliminary Report By: Jim Pereyra MD Electronically signed By Jim Pereyra MD Dictated Date: 07/14/2024 7:11:09 AM Prelim Date: 07/14/2024 7:14:52 AM Sign Date: 07/14/2024 7:14:52 AM Ordering Provider: ANGELA STRAUSS [facility] CBC + DIFFon 07-13-2024 Baso # 0.09 x10EE3/UL Normal 0.00 - 0.10 [facility] Comment on above: Performed By: #### 2 71896 #### [facility],[address] [place] [address] Basophils/100 WBC (Bld) 0.3 % Normal 0.0 - 2.0 [facility] Comment on above: Performed By: #### 2 56918 #### [place] [address] CBC + DIFF Normal [facility] Comment on above: Result Comment: CBC- COMPLETE BLOOD COUNT Performed By: #### 2 57017 #### [place] [address] EO # 0.27 x10EE3/UL Normal 0.00 - 0.50 [facility] Comment on above: Performed By: #### 2 73736 #### [place] [address] Eosinophils/100 WBC (Bld) 0.8 % Normal 0.0 - 7.0 [facility] Comment on above: Performed By: #### 2 37446 #### [facility],[address] [place] [address] Erythrocyte distribution width (RBC) [Ratio] 13.9 % Normal 12.0 - 15.6 [facility] Comment on above: Performed By: #### 2 41785 #### [place] [address] Hematocrit (Bld) [Volume fraction] 50.3 % Normal 40.0 - 52.0 [facility] Comment on above: Performed By: #### 2 65918 #### [facility],[address] [place], [place] [id number] Hemoglobin (Bld) [Mass/Vol] 16.7 g/dL Normal 13.0 - 17.5 [facility] Comment on above: Performed By: #### 2 46352 #### [facility],[address] [place] [address] Lymph # 23.09 x10EE3/UL High 0.80 - 2.80 [facility] Comment on above: Performed By: #### 2 49743 #### [facility],[address] [place], [place] [id number] Lymphocytes/100 WBC (Bld) 67.7 % High 20.0 - 45.0 [facility] Comment on above: Performed By: #### 2 14694 #### [facility],[address] [place] [address] MANUAL DIFF N/A Normal [facility] Comment on above: Performed By: #### 2 64979 #### [facility],[address] [place] [address]774 MCH (RBC) [Entitic mass] 28 pg Normal 27 - 33 [facility] Comment on above: Performed By: #### 2 09984 #### [facility],[address] [place] [address] MCHC 33 X10 3 Normal 32 - 36 [facility] Comment on above: Performed By: #### 2 05806 #### [facility],[address] [place] [address] MCV (RBC) [Entitic vol] 85 fL Normal 81 - 98 [facility] Comment on above: Performed By: #### 2 36085 #### [facility],[address] [place] [address] [place] # 1.52 x10EE3/UL High 0.20 - 1.00 [facility] Comment on above: Performed By: #### 2 70685 #### [facility],[address] [place] [address] MONOS % 4.5 % Normal 0.0 - 10.0 [facility] Comment on above: Performed By: #### 2 31608 #### [facility],[address] [place] [address] Morphology Ty (Bld) [Interp] N/A Normal [facility] Comment on above: Performed By: #### 2 40145 #### [facility],[address] [place] [address] Neut # 9.13 x10EE3/UL High 1.50 - 7.10 [facility] Comment on above: Performed By: #### 2 14764 #### [facility],[address] [place] [address] Neutrophils/100 WBC (Bld) 26.8 % Low 46.0 - 76.0 [facility] Comment on above: Performed By: #### 2 49407 #### [facility],[address] [place] [address] PLATELET 90 x10EE3/UL Low 150 - 450 [facility] Comment on above: Performed By: #### 2 41875 #### [facility],[address] [place] [address] Platelet mean volume (Bld) [Entitic vol] 8.0 fL Normal 6.4 - 10.5 [facility] Comment on above: Result Comment: AUTO MATED DIFFERENTIAL Performed By: #### 2 13711 #### [facility],[address] [place] [address]75 RBC 5.94 x 10EE6/UL Normal 4.50 - 6.00 [facility] Comment on above: Performed By: #### 2 41221 #### [facility],[address] [place] [address] WBC 34.1 x 10EE3/UL High 4.5 - 10.8 [facility] Comment on above: Performed By: #### 2 09082 #### [facility],[address] [place] [address] CHEST 1 VIEWon 07-13-2024 CHEST [address] [address] Patient: BASSEM YEE Phone#: : 1945 Age: 78 Gender: M Pt. Type: ER Account: [id number] Location: [facility] Ordering: SAUL TURPIN Exam Date: 07/13/2024/15:15 Family Phys: SHIRA PAVON Charge Code: 708391 Physician: Grand Order #: [id number] Dose#: PROCEDURE: X-RAY CHEST 1 VIEW COMPARISON: [facility], XR, CHEST 1 VIEW, 03/05/2024, 9:52. INDICATIONS: Shortness of breath. FINDINGS: LUNGS: Hazy increased density in the right lower thorax is present and suspicious for infiltrate. This is a new finding since prior exam. VASCULATURE: Normal. Unremarkable pulmonary vasculature. CARDIAC: Normal. No cardiac silhouette abnormality or cardiomegaly. MEDIASTINUM: Normal. No visible mass or adenopathy. PLEURA: Normal. No effusion or pleural thickening. BONES: Normal. No fracture or visible bony lesion. OTHER: Sternotomy sutures are present. Atrial clip is present. CONCLUSION: 1. Right lower lobe infiltrate. Dictated by: Melissa Bermudez MD on 07/14/2024 at 10:06 Approved by: Melissa Bermudez MD on 07/14/2024 at 10:07 Normal [facility] CMP with eGFRon 07-13-2024 AGE 78 years Normal [facility] Comment on above: Performed By: #### 2 78703 #### [facility],[address] [place] [address] Albumin [Mass/Vol] 3.8 g/dL Normal 3.4 - 5.0 [facility] Comment on above: Performed By: #### 2 84802 #### [facility],[address] [place] [address] Albumin/Globulin [Mass ratio] 1.4 {ratio} Normal 0.9 - 1.6 [facility] Comment on above: Performed By: #### 2 27299 #### [facility],[address] [place] [address] ALK PHOS 58 U/L Normal 46 - 116 [facility] Comment on above: Performed By: #### 2 22936 #### [facility],[address] [place] [address] ALT [Catalytic activity/Vol] 17 U/L Normal 16 - 63 [facility] Comment on above: Performed By: #### 2 49953 #### [facility],[address] [place] [address] Anion gap [Moles/Vol] 13 mmol/L Normal 10 - 20 [facility] Comment on above: Performed By: #### 2 90743 #### [facility],[address] [place] [address] AST [Catalytic activity/Vol] 21 U/L Normal 15 - 37 [facility] Comment on above: Performed By: #### 2 90875 #### [facility],[address] [place] [address] B/C RATIO 13 ratio Normal 0 - 30 [facility] Comment on above: Performed By: #### 2 43937 #### [facility],[address] [place] [address] Bilirubin [Mass/Vol] 2.0 mg/dL High 0.2 - 1.0 [facility] Comment on above: Performed By: #### 2 71853 #### [facility],[address] [place] [address] Calcium [Mass/Vol] 9.3 mg/dL Normal 8.5 - 10.1 [facility] Comment on above: Performed By: #### 2 79191 #### [facility],[address] [place] [address] Chloride [Moles/Vol] 104 mmol/L Normal 98 - 107 [facility] Comment on above: Performed By: #### 2 82477 #### [facility],[address] [place] [address] CMP with eGFR Normal [facility] Comment on above: Result Comment: COMP REHENSIVE METABOLIC PANEL Performed By: #### 2 52578 #### [facility],[address] [place] [address] CO2 [Moles/Vol] 26.4 mmol/L Normal 21.0 - 32.0 [facility] Comment on above: Performed By: #### 2 90521 #### [facility],[address] [place] [address] 19968 Creatinine [Mass/Vol] 1.43 mg/dL High 0.70 - 1.30 [facility] Comment on above: Performed By: #### 2 51731 #### [facility],[address] [place] [address] 13440 eGFR 48 ML/MINUTE Low 60 - 999 [facility] Comment on above: Performed By: #### 2 42889 #### [facility],[address] [place] [address]992 eGFR(AA) 58 ML/MINUTE Low 60 - 999 [facility] Comment on above: Result Comment: ACCO RDING TO THE NATIONAL KIDNEY DISEASE EDUCATION PROGRAM(NKDE), A NORMAL eGFR IS A VALUE GREATER THAN OR EQUAL TO 60 ML/MIN/1.73 SQ METERS. CHRONIC KIDNEY DISEASE: <60mL/MIN/1.73 SQ METERS KIDNEY FAILURE: <15mL/MIN/1.73 SQ METERS THIS TEST SHOULD ONLY BE USED FOR PATIENTS 18 YEARS OF AGE AND OLDER. Performed By: #### 2 48818 #### [facility],[address] [place] [address]663 Globulin (S) [Mass/Vol] 2.7 g/dL Normal 1.5 - 3.8 [facility] Comment on above: Performed By: #### 2 86830 #### [facility],[address] [place] [address]666 Glucose [Mass/Vol] 98 mg/dL Normal 74 - 106 [facility] Comment on above: Performed By: #### 2 69786 #### [facility],[address] [place] [address]32 Potassium [Moles/Vol] 3.6 mmol/L Normal 3.5 - 5.1 [facility] Comment on above: Performed By: #### 2 31594 #### [facility],[address] [place] [address] 78892 Protein [Mass/Vol] 6.5 g/dL Normal 6.4 - 8.2 [facility] Comment on above: Performed By: #### 2 51914 #### [facility],[address] [place] [address] 48593 Sodium [Moles/Vol] 140 mmol/L Normal 136 - 145 [facility] Comment on above: Performed By: #### 2 89052 #### [facility],[address] [place] [address] 10434 Urea nitrogen [Mass/Vol] 18 mg/dL Normal 7 - 18 [facility] Comment on above: Performed By: #### 2 14240 #### [facility],[address] [place], [place] [id number] CORONAVIRUS (SARS) ANTIGEN T ESTon 07-13-2024 EXTERNAL QC DONE? YES Normal [facility] Comment on above: Performed By: #### [id number] #### [facility],[address] [place] [id number] INTERNAL CONTROL PASS Normal [facility] Comment on above: Performed By: #### [id number] #### [facility],[address] [place] [address] 84089 SARS ANTIGEN Negative Normal NORMAL: NEGATIVE [facility] Comment on above: Performed By: #### [id number] #### [facility],[address] [place], [place] [id number] SEND TO ? NO Normal [facility] Comment on above: Result Comment: SARS -CoV-2 THIS TEST IS BEING USED UNDER THE FDA EUA PROCEDURE. THIS ASSAY HAS BEEN VALIDATED AT [facility] FOR USE WITH NASAL AND NASOPHARYNGEAL SWAB SPECIMENS. INTERPRETIVE DATA TEST RESULTS SHOULD ALWAYS BE CONSIDERED IN THE CONTEXT OF CLINICAL OBSERVATIONS AND EPIDEMIOLOGICAL DATA IN MAKING FINAL DIAGNOSIS AND PATIENT MANAGEMENT DECISIONS. PATIENT MANAGEMENT SHOULD FOLLOW CURRENT CDC GUIDELINES. THE ESTUARDO SARS ANTIGEN DEACON DOES NOT DIFFERENTIATE BETWEEN SARS-CoV & SARS-CoV-2. A POSITIVE TEST RESULT INDICATES THE PRESENCE OF SARS-CoV-2 NUCLEOCAPSID PROTEIN ANTIGEN, AND THE PATIENT IS INFECTED WITH THE VIRUS AND PRESUMED TO BE CONTAGIOUS. A NEGATIVE TEST RESULT FOR THIS TEST MEANS THAT SARS-CoV-2 NUCLEOCAPSID PROTEIN ANTIGEN WAS NOT PRESENT IN THE SPECIMEN ABOVE THE LIMIT OF DETECTION. HOWEVER, A NEGATIVE RESULT DOES NOT RULE OUT COVID-19 AND SHOULD NOT BE USED THE SOLE BASIS FOR TREATMENT OR PATIENT MANAGEMENT DECISIONS. A NEGATIVE RESULT DOES NOT EXCLUDE THE POSSIBILITY OF COVID-19. NEGATIVE RESULTS, FROM PATIENTS WITH SYMPTOM ONSET BEYOND FIVE DAYS, SHOULD BE TREATED PRESUMPTIVE AND CONFIRMATION WITH A MOLECULAR ASSAY, IF NECESSARY, FOR PATIENT MANAGEMENT, MAY BE PERFORMED. WHEN DIAGNOSTIC TESTING IS NEGATIVE, THE POSSIBLILTY OF A FALSE NEGATIVE RESULT SHOULD BE CONSIDERED IN THE CONTEXT OF A PATIENT'S RECENT EXPOSURES AND THE PRESENCE OF CLINICAL SIGNS AND SYMPTOMS CONSISTENT WITH COVID-19. THE POSSIBILITY OF A FALSE NEGATIVE RESULT SHOULD ESPECIALLY BE CONSIDERED IF THE PATIENT'S RECENT EXPOSURES OR CLINICAL PRESENTATION INDICATE THAT COVID-19 IS LIKELY, AND DIAGNOSTIC TESTS FOR OTHER CAUSES OF ILLNESS (e.g., OTHER RESPIRATORY ILLNESS) ARE NEGATIVE. IF COVID-19 IS STILL SUSPECTED BASED ON EXPOSURE HISTORY TOGETHER WITH OTHER CLINICAL FINDINGS, RE-TESTING SHOULD BE CONSIDERED BY HEALTHCARE PROVIDERS IN CONSULTATION WITH PUBLIC HEALTH AUTHORITIES. Performed By: #### 2 [id number] #### [facility],[address] [place] [address] CHEST (PE PROTOCOL)on CT CHEST (PE PROTOCOL) [place] [address] Patient: BASSEM YEE Phone#: : 1945 Age: 78 Gender: M Pt. Type: ER Account: [id number] Location: [facility] Ordering: SAUL TURPIN Exam Date: 07/13/2024/17:27 Family Phys: SHIRA PAVON Charge Code: 584921 Physician: Grand Order #: [id number] Dose#: 3.50 PROCEDURE: CT CHEST WITH CONTRAST FOR PE COMPARISON: [facility], CT, CHEST PE W CON, 03/05/2024, 13:10. INDICATIONS: Shortness of breath. TECHNIQUE: After obtaining the patient's consent, CT images were obtained with non-ionic intravenous contrast material. Multi-planar images were created to optimize visualization of vascular anatomy with MPR/MIPS and 3D imaging. All CT scans at this facility use dose modulation, iterative reconstruction, and/or weight based dosing when appropriate to reduce radiation dose to as low as reasonably achievable. IV CONTRAST: Omnipaque 350,100ml TOTAL DOSE: 3.50 CTDIvol(mGy) FINDINGS: VASCULATURE: Normal. No visible pulmonary arterial thrombus or attenuation. AORTA: Normal. No aneurysm or dissection. LUNGS: Emphysematous changes are present. Right lower lobe interstitial infiltrate versus edema is present. IAN: Normal. No mass or adenopathy. MEDIASTINUM: Nonspecific paratracheal adenopathy is present. CARDIAC: Normal. No enlargement, pericardial thickening, or significant calcification. PLEURA: Normal. No mass or effusion. CHEST WALL: Normal. No mass or axillary adenopathy. LIMITED ABDOMEN: Small hiatal hernia is present. BONES: Sternotomy sutures are present. Mild degenerative changes of the spine are present. OTHER: Negative. CONCLUSION: 1. Prominent right lower lobe interstitium, new finding since previous exam, consistent with infiltrate versus edema. 2. There is no evidence of pulmonary embolus. [address] [address] Patient: BASSEM YEE Phone#: : 1945 Age: 78 Gender: M Pt. Type: ER Account: [id number] Location: [facility] Ordering: SAUL TURPIN Exam Date: 07/13/2024/17:27 Family Phys: SHIRA PAVON Charge Code: 985898 Physician: Grand Order #: [id number] Dose#: 3.50 Dictated by: eMlissa Bermudez MD on 07/14/2024 at 10:54 Approved by: Melissa Bermudez MD on 07/14/2024 at 11:00 Normal [facility] CULTURE BLOOD [MEENA]on Microscopic examination of blood, culture CULTURE BLOOD [MEENA] _BLOOD CULTURE_ GO TO [employer] REPORTS AND ATTACHMENTS FOR SCANNED REPORT 07/24/24.43.DNP.COMPLET E Normal [facility] Comment on above: Performed By: #### 2 [id number] #### [facility],[address] [place] [address] Microscopic examination of blood, culture CULTURE BLOOD [MEENA] _BLOOD CULTURE_ GO TO CPSI REPORTS AND ATTACHMENTS FOR SCANNED REPORT 07/24/24.43.DNP.COMPLET E Normal [facility] Comment on above: Performed By: #### 2 [id number] #### [facility],[address] [place] [address]69 D-DIMER, QUANTITATIVEon 03-0 D-DIMER QUANT 1522 ng/ml High 0 - 230 [facility] Comment on above: Performed By: #### 2 [id number] #### [facility],[address] [place] [address]606 D-DIMER, QUANTITATIVE Normal [facility] Comment on above: Result Comment: ONI T D-DIMER Performed By: #### 2 [id number] #### [facility],[address] [place] [address] ED MED ADMINISTRATION DETAIL on 07-13-2024 ED MED ADMINISTRATION DETAIL Trans Router Medication Administration Record [address] [address] [id number] 07/13/2024 Patient: BASSEM YEE Sex: Male : 1945 Age: 78y MEASUREMENTS: Wt: 63.5 kg, Ht/Henrique: 68.0 in, BMI: 21.29 ALLERGIES: sulfa Medication Ordered Medication Administration Date/Time IV NS 0.9 % 1000 15:18 07/13 IV NS 0.9 % 1000 mL started in bag#1 1000 mL at Started mL at 999 mL/hr 999 mL/hr over 30 minute(s) via Site# 1. Via IV pump. IV patency 15:18 07/13/2024 over 30 minute(s) established. IV site checked: no pain, redness, or swelling. IV Lita Stanley R.N. (NOW x1) flushed thoroughly pre-medication administration. Information Stopped reviewed with patient including reason for taking this medication. - 16:37 07/13/2024 15:19 Konstantin Rm R.N. Scanned 16:37 07/13 Medication Discontinued: bag #1 infused. Total amount infused: 1000 mL. IV patency established. IV site checked: no pain, redness, or swelling. IV flushed thoroughly post-medication administration. - 16:37 Lita Stanley R.N. Diltiazem 15:53 07/13 Change Diltiazem (Cardizem) IVP 10 mg given via Given (Cardizem) IVP 10 Site# 2. Allergies verified and confirmed 5 rights. IV patency 15:53 07/13/2024 mg (NOW x1, HIGH established. IV site checked: no pain, redness, or swelling. IV Lita Stanley R.N. ALERT flushed thoroughly pre-medication administration. IVP given by Scanned MEDICATION) nurse. Information reviewed with patient and family including reason for taking this medication. Medication Wastage: 15 mg wasted. - 15:54 Lita Stanley R.N. 15:53 07/13 Medication Co-sign: Verified dosage, concentration and rate. - 15:54 Cristina Aguilera R.N. 1 of 4 Trans Router Medication Ordered Medication Administration Date/Time IV NS 0.9 % 1000 16:08 07/13 IV NS 0.9 % 1000 mL started in bag#2 1000 mL at Started mL at 999 mL/hr 999 mL/hr via Site# 2. Allergies verified and confirmed 5 rights. Via 16:08 07/13/2024 (NOW x1) IV pump. IV patency established. IV site checked: no pain, redness, Lita Stanley RBrittanyN. or swelling. IV flushed thoroughly pre-medication administration. Stopped Information reviewed with patient including reason for taking this 17:15 07/13/2024 medication. - 16:09 Konstantin Rm R.N. Scanned 17:15 07/13 Medication Discontinued: bag #2. Total amount infused: 1000 mL. IV patency established. IV site checked: no pain, redness, or swelling. IV flushed thoroughly post-medication administration. - 17:20 Lita Stanley R.N. Zofran IVP 4 mg 16:07/13 Zofran IVP 4 mg given via Site# 2. Allergies verified Given (NOW x1) and confirmed 5 rights. IV patency established. IV site checked: no 16:07/13/2024 pain, redness, or swelling. IV flushed thoroughly pre-medication Lita Stanley R.N. administration. IVP given by nurse. Information reviewed with Scanned patient and family including reason for taking this medication. - 16:02 Lita Stanley R.N. CefTRIAXone 16:35 07/13 CefTRIAXone (Rocephin) IVPB 2gm/50ml NS 2 g Started (Rocephin) IVPB started at 100 mL/hr diluted in sodium chloride IVPB 0.9 % 16:35 07/13/2024 2gm/50ml NS 2 g Minibag+ 50 mL via Site# 2. Allergies verified and confirmed 5 Lita Stanley R.N. diluted in sodium rights. Via IV pump. IV patency established. IV site checked: no Stopped chloride IVPB 0.9 % pain, redness, or swelling. IV flushed thoroughly pre-medication 17:03 07/13/2024 Minibag+ 50 mL at administration. Information reviewed with patient and family Lita Stanley R.N. 100 mL/hr (NOW x1) including reason for taking this medication. - 16:36 Siva Rm R.N. 17:03 07/13 Medication Discontinued: IV infused. Total amount infused: 50 mL. IV patency established. IV site checked: no pain, redness, or swelling. IV flushed thoroughly post-medication administration. - 17:19 Lita Stanley R.N. 2 of 4 Trans Router Medication Ordered Medication Administration Date/Time NOREpinephrine 18:38 07/13 NOREpinephrine (Levophed) Drip IV 4mg/250ml D5W Started (Levophed) Drip IV 4 mg started in bag#1 250 mL at 5 mcg/min diluted in dextrose 5 % 18:38 07/13/2024 4mg/250ml D5W 4 in water IVPB 250 mL via Site# 2. Allergies verified and confirmed 5 Lita Stanley R.N. mg diluted in rights. Via IV pump. IV patency established. IV site checked: no Scanned dextrose 5 % in pain, redness, or swelling. IV flushed thoroughly pre-medication water IVPB 250 mL administration. Information reviewed with patient and family at 5 mcg/min (NOW including reason for taking this medication. - 18:41 Lita Stanley, x1, HIGH ALERT R.N. MEDICATION) 18:38 07/13 Medication Co-sign: Verified dosage, concentration and rate. - 18:41 Savannah Wells R.N. 21:37 07/13 Medication Continued: upon transfer at the rate of 5 mcg/min. 175 mL remaining in bag #1. IV patency established (more content not included)... Normal [facility] ED NURSES CLINICAL NOTEon ED NURSES CLINICAL NOTE Nurse Narrative Nurse Clinical Narrative [address] [address] [id number] 07/13/2024 Patient: BASSEM YEE Sex: Male : 1945 Age: 78y Primary Insurance: [employer] OUTPATIENT Policy Number: [id number] Group Number: [id number] Subscriber: Other Disposition: Transfer to [facility] Disposition Decision Time: 20:37 07/13/2024 Departure Time: 21:37 07/13/2024 TRIAGE Arrived by private vehicle. Historian: (patient). Accompanied by family. Primary physician (omran). Triage time: 14:44 07/13/2024. Acuity: LEVEL 2. Chief Complaint: SHORTNESS OF BREATH, DIFFICULTY BREATHING and WHEEZING and FEVER. Alert. No acute distress. The patient has had fever, chills, a cough and chest pain. SEPSIS SCREEN: NEGATIVE. SIRS criteria negative. SEVERE SEPSIS SCREEN NEGATIVE. No signs of organ dysfunction present. -- 14:50 07/13/24 REGAN Wells R.N. 14:49 07/13/24. BP: 144/66 MAP: 92. HR: 157. RR: 26. O2 saturation: 92% Temperature: 100.3 F. Pain level now 10. -- 14:49 07/13/24 REGAN Wells R.N. 14:49 07/13/24. HR: 147 bpm. O2 saturation: 93%. -- 14:49 07/13/24 REGAN Wells R.N. Measurements: 14:50 07/13/24 Wt: 63.5 kg, Ht/Henrique: 68.0 in, BMI: 21.29 -- 14:50 07/13/24 REGAN Wells R.N. 1 of 7 Nurse Narrative Medications: Symbicort 160 mcg-4.5 mcg/actuation HFA aerosol inhaler: 2 puff as needed. -- 14:54 07/13/24 REGAN Wells R.N. azelastine 0.05 % eye drops: Stopped 07/13/2024. -- 14:54 07/13/24 REGAN Wells R.N. atorvastatin 20 mg tablet: 1 tablet once a day. -- 14:54 07/13/24 REGAN Wells R.N. alprazolam 0.25 mg tablet: 1 tablet twice a day as needed. -- 14:54 07/13/24 REGAN Wells R.N. pravastatin oral tablet or capsule: 1 tablet or capsule once a day. Stopped 07/13/2024. -- 14:54 07/13/24 Konstantin Cunningham DM Cough 10 mg-100 mg/5 mL oral liquid: Stopped 07/13/2024. -- 14:54 07/13/24 Konstantin Cunningham DM Cough 10 mg-100 mg/5 mL oral liquid: Stopped 07/13/2024. -- 14:54 07/13/24 EST Savannah Wells R.N. prednisone 20 mg tablet: 2 tablet once a day. Stopped 07/13/2024. -- 14:54 07/13/24 EST Savannah Wells R.N. MUCUS RELIEF MAX 1200MG TAB: Stopped 07/13/2024. -- 14:54 07/13/24 EST Savannah Wells R.N. azelastine 0.05 % eye drops: Stopped 07/13/2024. -- 14:54 07/13/24 EST Savannah Wells R.N. azithromycin 250 mg tablet: Stopped 07/13/2024. -- 14:54 07/13/24 EST Savannah Wells R.N. amoxicillin 500 mg-potassium clavulanate 125 mg tablet: Stopped 07/13/2024. -- 14:54 07/13/24 EST Savannah Wells R.N. 14:44 07/13/24. Preferred Pharmacy: ([facility]). -- 14:50 07/13/24 REGAN Wells RIsh Allergies: sulfa -- 14:45 07/13/24 EST Savannah Wells R.N. Problems: COPD - Chronic Obstructive Pulmonary Disease -- 14:46 07/13/24 REGAN Wells R.N. Emphysema -- 14:46 07/13/24 EST Idania DsouzaN. Chronic lymphoid leukemia, disease -- 14:46 07/13/24 EST Savannah Wells RThelma. ADDITIONAL SURGERIES: Repair of tricuspid valve -- 14:46 07/13/24 EST Savannah Wells RBrittanyN. Replacement of aortic valve -- 14:46 07/13/24 EST Idania DsouzaNBrittany Replacement of mitral valve -- 14:46 07/13/24 EST Savannah Wells R.N. 2 of 7 Nurse Narrative History 14:44 07/13/24. SOCIAL HX: Former smoker. No alcohol use or drug use. The patient has not traveled outside the [place] Infectious disease exposure: No infectious disease exposure. ABUSE ASSESSMENT: Abuse denied. No suspicion of abuse. SELF HARM ASSESSMENT: Self harm assessment was performed. The patient answered no to the question(s) Have you recently felt down, depressed, or hopeless? and Do you have thoughts of harming or killing yourself?. FALL RISK ASSESSMENT: Fall risk assessment completed. Risk factors identified include patient age greater than 65 years and impairment of mobility. Fall interventions initiated. Patient placed on stretcher. Side rails up. Bed in low position. Patient visible from nurses' station and identified as a fall risk. -- 14:50 07/13/24 REGAN Wells R.N. Interventions 14:44 07/13/24. Identification band on patient. To treatment room. Advanced care plan. Patient does not have advanced directive. -- 14:50 07/13/24 REGAN Wells R.N. PHYSICAL ASSESSMENT 15:37 07/13/24. Ambulatory to room. ( Pt just drove home from [place] Sunday. Pt states he started to feel sick this morning, feverish and started to vomit. Pt has a history of COPD, and felt like he was having difficulty breathing. Pt had episode of emesis and vomited what appeared to be yellowish/greenish mucous.). GENERAL / NEURO / PSYCH: Alert. Oriented X 4. Appears in distress. RESPIRATORY: Moderate respiratory distress. The patient can speak a few words at a time. Cough productive of moderate amounts of yellow, green sputum. Decreased breath sounds. R (more content not included)... Normal [facility] ED ORDER SHEET (CPOE ONLY)on 07-13-2024 ED ORDER SHEET (CPOE ONLY) Order Sheet Order Sheet [address] [place] [address] [id number] 07/13/2024 Patient: BASSEM YEE Sex: Male : 1945 Age: 78y MEASUREMENTS: Wt: 63.5 kg, Ht/Henrique: 68.0 in, BMI: 21.29 ALLERGIES: sulfa MEDICATION/IV/DRIP/FLUID ORDERS Order Description Priority Entered Acknowledged Completed IV NS 0.9 %1000 mL at 999 15:13 07/13/2024 15:15 15:19 mL/hr over 30 minute(s) (NOW Saul Turpin M.D. 07/13/2024 07/13/2024 x1) Lita Rm R.NBrittany RBrittanyN. Diltiazem (Cardizem) IVP15 mg 15:13 07/13/2024 Cancelled: Physician Order (NOW x1, HIGH ALERT Saul Turpin M.D. 15:53 EST Lita Stanley R.NBrittany MEDICATION) Reason for ordering with alerts: Clinical consideration given --15:13 07/13/2024 Saul Turpin M.D. Diltiazem (Cardizem) IVP10 mg 15:16 07/13/2024 15:17 15:54 (NOW x1, HIGH ALERT Saul Turpin M.D. 07/13/2024 07/13/2024 MEDICATION) Lita Rm R.N. R.NBrittany Reason for ordering with alerts: Clinical consideration given --15:13 07/13/2024 Saul Turpin M.D. Diltiazem (Cardizem) Drip IV 15:13 07/13/2024 Cancelled: Treatment not 125mg/100ml NS125 mg diluted Saul Turpin M.D. Indicated in sodium chloride IVPB 0.9 % 16:22 REGAN Turpin M.D. 100 mL (NOW x1, HIGH ALERT 1 of 4 Order Sheet MEDICATION, and then titrate per protocol, After IV Admixture Total Volume = 125ml) Reason for ordering with alerts: Clinical consideration given --15:13 07/13/2024 Saul Turpin M.D. IV NS 0.9 %1000 mL at 999 15:58 07/13/2024 16:03 16:09 mL/hr (NOW x1) Saul Turpin M.D. 07/13/2024 07/13/2024 Lita Rm R.N. R.NBrittany Reason for ordering with alerts: Clinical consideration given --15:58 07/13/2024 Saul Turpin M.D. Zofran IVP4 mg (NOW x1) 15:58 07/13/2024 15:58 16:02 Saul Turpin M.D. 07/13/2024 07/13/2024 Lita Rm R.N. R.N. Reason for ordering with alerts: Clinical consideration given --15:58 07/13/2024 Saul Turpin M.D. CefTRIAXone (Rocephin) IVPB 16:11 07/13/2024 16:36 2gm/50ml NS2 g diluted in Saul Turpin M.D. 07/13/2024 sodium chloride IVPB 0.9 % Lita Stanley Minibag+ 50 mL at 100 mL/hr R.N. (NOW x1) NOREpinephrine (Levophed) 18:30 07/13/2024 18:31 18:41 Drip IV 4mg/250ml D5W4 mg Saul Turpin M.D. 07/13/2024 07/13/2024 diluted in dextrose 5 % in water Lita Rm IVPB 250 mL at 5 mcg/min (NOW R.N. R.N. x1, HIGH ALERT MEDICATION) Order Comments: 18:30 07/13/2024: (Central line administration is preferred) Saul Turpin M.D. IV NS 0.9 %1000 mL at 999 20:58 07/13/2024 21:05 21:09 mL/hr (NOW x1) Rosalino Ruiz D.O. 07/13/2024 07/13/2024 Agnes Manjarrez RBrittanyN. R.N. Reason for ordering with alerts: Clinical consideration given --20:58 07/13/2024 Rosalino Ruiz D.O. LAB ORDERS Order Description Priority Entered Acknowledged Collected Completed CBC w Diff Stat Stat 15:13 07/13/2024 15:15 07/13/2024 15:31 07/13/2024 2 of 4 Order Sheet Chandana Nathan Natalie Yoder, R.N. R.N. CMP Stat Stat 15:13 07/13/2024 15:15 07/13/2024 15:31 07/13/2024 Chandana Nathan Natalie Yoder, R.N. R.N. Blood Culture Stat 15:13 07/13/2024 15:15 07/13/2024 15:31 07/13/2024 [Meena] # 1 Stat Saul TurpinChandana Natalie Yoder, Beryl.N. R.N. Blood Culture Stat 15:13 07/13/2024 15:15 07/13/2024 15:31 07/13/2024 [Meena] # 2 Stat Chandana Nathan Natalie Yoder, Beryl.N. R.N. Lactate, Serum Stat Stat 15:13 07/13/2024 15:15 07/13/2024 15:31 07/13/2024 Chandana Nathan Natalie Yoder, Beryl.N. R.N. D-Dimer Stat Stat 15:13 07/13/2024 15:15 07/13/2024 15:31 07/13/2024 Chandana Nathan Natalie Yoder, Beryl.N. R.N. BNP Stat Stat 15:13 07/13/2024 15:15 07/13/2024 15:31 07/13/2024 Chandana Nathan Natalie Yoder, Beryl.N. R.N. Troponin-I Stat Stat 15:13 07/13/2024 15:15 07/13/2024 15:31 07/13/2024 Chandana Nathan Natalie Yoder, Beryl.N. R.N. EKG - ED Stat Stat 15:13 07/13/2024 15:15 07/13/2024 15:31 07/13/2024 Chandana Nathan Natalie Yoder, Beryl.N. R.N. Urinalysis Stat Stat 15:13 07/13/2024 15:15 07/13/2024 15:31 07/13/2024 Chandana Nathan Natalie Yoder, R.N. R.N. 3 of 4 Order Sheet Flu Swab (Influenzae Stat 15:13 07/13/2024 15:15 07/13/2024 15:31 07/13/2024 AAg) Stat Chandana Nathan Natalie Yoder, Beryl.N. R.N. Rapid COVID (SARS) Stat 15:13 07/13/2024 15:15 07/13/2024 15:31 07/13/2024 ANTIGEN TEST Stat Chandana Nathan Natalie Yoder, R.N. RBrittanyNBrittany Troponin-I Stat Stat 20:39 07/13/2024 20:39 07/13/2024 20:39 07/13/2024 Agnes Jauregui, Agnes Jauregui, Agnes Jauregui R.N. R.N. RBrittanyN. Verbal Order, Auth by: Saul Turpin M.D. Read back and verified DIAGNOSTIC STUDY ORDERS Order Description Priority Entered A (more content not included)... Normal [facility] ED PHYSICIAN CLINICAL REPORT on 07-13-2024 ED PHYSICIAN CLINICAL REPORT Narrative Physician Clinical Narrative [address] [address] [id number] 07/13/2024 Patient: BASSEM YEE Sex: Male : 1945 Age: 78y Primary Insurance: [employer]AGE OUTPATIENT Policy Number: [id number] Group Number: [id number] Subscriber: Other Disposition: Transfer to [facility] Disposition Decision Time: 20:37 07/13/2024 Measurements Wt: 63.5 kg, Ht/Henrique: 68.0 in, BMI: 21.29 Initial Vital Sign Measured Time BP MAP HR RR O2Sat ETCO2 Temp Pain GCS RTS 14:49 07/13/2024 144/66 92 157 26 92% 100.3 F 4 Time Seen: 14:57 07/13/2024. Arrived- By ambulance. Historian- patient. HISTORY OF PRESENT ILLNESS Chief Complaint: FEVER, CHILLS, SHAKING, NOT FEELING WELL and WEAKNESS. Temperature not treated prior to arrival. This started about 8 hours ago and is still present and worsening. The patient has had measured fever. The patient has had loss of appetite, muscle aches, fatigue, dyspnea and a cough. The patient has had decreased oral intake. No chest pain, diarrhea, altered mental status or skin breakdown noted or rash. No decreased urine output. Additional history - No known contact with a sick individual. was recently in [place] for 6 weeks. Drove back yesterday and today. States that drove 8 hours yesterday and arrived home late afternoon. He felt well yesterday. Awoke this morning feeling weak very chilled and shaky. Had a fever at home not complaining of pain has had a cough but not productive. Minimal p.o. intake considerably weak today to the point that he was unable to get up and around. 1 of 17 Narrative Similar symptoms previously. None. REVIEW OF SYSTEMS RESPIRATORY: No sputum production. CVS: No palpitations or calf pain. CONSTITUTIONAL: No anorexia or weight loss. NEUROLOGICAL: No headache. NOSE: No sinus pain. THROAT: No sore throat. SKIN: No tick bite. ENDO/HEME/LYMPH: No easy bruising or enlarged lymph nodes. MUSCULOSKELETAL: No neck pain. The patient has had back pain. GI: The patient has had nausea. No constipation, black stools or vomiting. : No difficulty with urination. PAST HISTORY See nurses notes. Valvular heart disease. COPD; does not have a known history of atrial fibrillation as far as he knows. Chronic lymphoid leukemia, disease COPD - Chronic Obstructive Pulmonary Disease Emphysema Surgeries: Valve replacement. 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 amoxicillin 500 mg-potassium clavulanate 125 mg tablet: Stopped 07/13/2024. atorvastatin 20 mg tablet: 1 tablet once a day. azelastine 0.05 % eye drops: Stopped 07/13/2024. azelastine 0.05 % eye drops: Stopped 07/13/2024. azithromycin 250 mg tablet: Stopped 07/13/2024. MUCUS RELIEF MAX 1200MG TAB: Stopped 07/13/2024. pravastatin oral tablet or capsule: 1 tablet or capsule once a day. Stopped 07/13/2024. prednisone 20 mg tablet: 2 tablet once a day. Stopped 07/13/2024. Robafen DM Cough 10 mg-100 mg/5 mL oral liquid: Stopped 07/13/2024. 2 of 17 Narrative Robafen DM Cough 10 mg-100 mg/5 mL oral liquid: Stopped 07/13/2024. Symbicort 160 mcg-4.5 mcg/actuation HFA aerosol inhaler: 2 puff as needed. Allergies: sulfa SOCIAL HISTORY Does not use tobacco. Resides in a house. Does not live alone. ADDITIONAL NOTES The nursing notes have been reviewed. PHYSICAL EXAM Vital Signs: Have been reviewed. Appearance: Alert. Patient in mild distress. Distress appears respiratory. Eyes: Pupils equal, round and reactive to light. Eyes normal inspection. ENT: Nose normal. Pharynx normal. Uvula midline. Neck: Normal inspection. Neck supple. LABS, X-RAYS, AND EKG Laboratory Tests: CBC + DIFF Final NAOMIE: 07/13/2024 15:09:00 EST MsgRcvd: 07/13/2024 16:02 EST Lab Test Result Reference Status Received Comments 07/13/2024 16:02 CBC-COMPLETE CBC + DIFF Final EST BLOOD COUNT 34.1 x 10/UL 07/13/2024 16:02 WBC 4.5 - 10.8 Final Above high normal EST 3 of 17 Narrative Lab Test Result Reference Status Received Comments 07/13/2024 16:02 RBC 5.94 x 10/UL 4.50 - 6.00 Final EST 07/13/2024 16:02 HEMOGLOBIN 16.7 g/dl 13.0 - 17.5 Final EST 07/13/2024 16:02 HEMATOCRIT 50.3 % 40.0 - 52.0 Final EST 07/13/2024 16:02 MCV 85 fl 81 - 98 Final EST 07/13/2024 16:02 MCH 28 pg 27 - 33 Final EST 07/13/2024 16:02 MCHC 33 X10 3 32 - 36 Final EST 07/13/2024 16:02 RDW/CV 13.9 % 12.0 - 15.6 Final EST 90 x10/UL 07/13/2024 16:02 PLATELET 150 - 450 Final Below low normal EST 07/13/2024 16:02 AUTOMATED MPV 8.0 fl 6.4 - 10.5 Final EST DIFFERENTIAL 26.8 % 07/13/2024 16:02 NEUT % 46.0 - 76.0 Final Below low normal EST 67. (more content not included)... Normal [facility] ED SUPER BILLon 07-13-2024 ED [facility] [address] [place] [address] [id number] 07/13/2024 Patient: BASSEM YEE Sex: Male : 1945 Age: 78y Facility Professional Category Item Description Code Code Quantity Fee Total Drugs Normal Saline 025394 4 $0.00 $0.00 1000cc (319280) Nurse/E/M EMERGENCY 342069 1 $0.00 $0.00 DEPT VISIT HIGH SEVERITYFUNCJ (34920-57) Nurse/IV/IM/Infusions Drip/IVPB 884798 2 $0.00 $0.00 additional hour (00418) Nurse/IV/IM/Infusions Drip/IVPB initial [id number] 1 $0.00 $0.00 (58747) Nurse/IV/IM/Infusions Drip/IVPB seq 251413 1 $0.00 $0.00 (39202) Nurse/IV/IM/Infusions Hydration 131723 1 $0.00 $0.00 additional hour (34456) Nurse/IV/IM/Infusions Hydration initial 491061 1 $0.00 $0.00 (82793) 1 of 2 [facility] Professional Category Item Description Code Code Quantity Fee Total Nurse/IV/IM/Infusions IVP additional 896817 2 $0.00 $0.00 push (11539) Grand $0.00 Total Providers Saul Turpin M.D. Chief Complaint FEVER, CHILLS, SHAKING, NOT FEELING WELL and WEAKNESS. Principal Diagnosis Acute fever. Severe sepsis with shock. No acute organ dysfunction. Pneumonia with sepsis. ICD-10 Codes R50.9: Fever, unspecified A41.9: Sepsis, unspecified organism J18.9: Pneumonia, unspecified organism R65.21: Severe sepsis with septic shock A41.9: Sepsis, unspecified organism 2 of 2 Normal [facility] ED VISIT SUMMARYon ED VISIT SUMMARY Visit Overview Visit Overview [address] [address] [id number] 07/13/2024 Patient: BASSEM YEE Sex: Male : 1945 Age: 78y 07/13/2024 10:25 PM EST ED Arrival:14:43 07/13/2024 EST Status: Recent Travel:no Language:eng Adv Directive:No Isolation Status: Ethnicity:N Fall Risk:risk Infectious Disease Exposure:no Measurements:5'8 / 172.7 Self-Harm Status:no risk Sepsis Screen:negative cm 140.0 lb / 63.5 kg Chief Complaint:DIFFICULTY BREATHING, FEVER, SHORTNESS OF BREATH, WHEEZING, and (omran) ALLERGIES sulfa HOME MEDICATIONS alprazolam 0.25 mg tablet: 1 tablet twice a day as needed. amoxicillin 500 mg-potassium clavulanate 125 mg tablet: Stopped 07/13/2024. atorvastatin 20 mg tablet: 1 tablet once a day. azelastine 0.05 % eye drops: Stopped 07/13/2024. azelastine 0.05 % eye drops: Stopped 07/13/2024. 1 Visit Overview azithromycin 250 mg tablet: Stopped 07/13/2024. MUCUS RELIEF MAX 1200MG TAB: Stopped 07/13/2024. pravastatin oral tablet or capsule: 1 tablet or capsule once a day. Stopped 07/13/2024. prednisone 20 mg tablet: 2 tablet once a day. Stopped 07/13/2024. Robafen DM Cough 10 mg-100 mg/5 mL oral liquid: Stopped 07/13/2024. Robafen DM Cough 10 mg-100 mg/5 mL oral liquid: Stopped 07/13/2024. Symbicort 160 mcg-4.5 mcg/actuation HFA aerosol inhaler: 2 puff as needed. 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 Valve replacement SOCIAL HISTORY Smoking status: No Alcohol use: No Drug use: No ED COURSE MEDICATIONS GIVEN IN EMERGENCY DEPARTMENT 15:18 07/13/24 IV NS 0.9 % 1000 mL 999 mL/hr over 30 minute(s) 15:53 07/13/24 Diltiazem (Cardizem) IVP 10 mg 16:01 07/13/24 Zofran IVP 4 mg 16:08 07/13/24 IV NS 0.9 % 1000 mL 999 mL/hr CefTRIAXone (Rocephin) IVPB 2gm/50ml NS 2 g diluted in sodium chloride IVPB 0.9 16:35 07/13/24 % Minibag+ 50 mL 100 mL/hr 2 of 4 Visit Overview NOREpinephrine (Levophed) Drip IV 4mg/250ml D5W 4 mg diluted in dextrose 5 % in 18:38 07/13/24 water IVPB 250 mL 5 mcg/min 20:00 07/13/24 IV NS 0.9 % 1000 mL 999 mL/hr IV SITE INFORMATION 15:09 07/13/24 Site #1 left AC, 18g. Saline lock. 15:16 07/13/24 Site #2 right AC, 20g. Saline lock. INTAKE OUTPUT REASSESMENT (most recent) 21:19 07/13/24. The patient reports no complaints and the patient is calm and resting quietly. VITAL SIGNS First Vitals Last Vitals Temp 14:49 07/13/24 100.3 F Temp 21:31 07/13/24 BP 14:49 07/13/24 144/66 BP 21:31 07/13/24 93/56 HR 14:49 07/13/24 157 HR 21:31 07/13/24 108 RR 14:49 07/13/24 26 RR 21:31 07/13/24 O2 Sat 14:49 07/13/24 92% O2 Sat 21:31 07/13/24 Pain 14:49 07/13/24 4 Pain 21:31 07/13/24 ETCO2 14:49 07/13/24 ETCO2 21:31 07/13/24 GCS 14:49 07/13/24 GCS 21:31 07/13/24 RTS 14:49 07/13/24 RTS 21:31 07/13/24 PROCEDURES NURSING INTERVENTIONS LABS / STUDIES LABS / STUDIES ORDERED Blood Culture [Meena] # 1 Blood Culture [Meena] # 2 BNP CBC w Diff Chest 1V 3 of [address] Chest PE Study D-Dimer EKG - ED Flu Swab (Influenzae AAg) Lactate, Serum Rapid COVID (SARS) ANTIGEN TEST Troponin-I Troponin-I Urinalysis LABS / STUDIES PENDING IMPORT LACTATE TROPONIN CLINICAL IMPRESSION ACUTE FEVER PNEUMONIA WITH SEPSIS SEVERE SEPSIS WITH SHOCK. NO ACUTE ORGAN DYSFUNCTION 4 of 4 Normal [facility] ED VITALS FLOW SHEETon 07-13 ED VITALS FLOW SHEET Vitals Vital Sign Flow Sheet [address] [place] [address] [id number] 07/13/2024 Patient: BASSEM YEE [facility]#: [id number] Sex: Male : 1945 Age: 78y Measurements Wt: 63.5 kg, Ht/Henrique: 68.0 in, BMI: 21.29 Measured Time BP MAP HR RR O2Sat ETCO2 Temp Pain GCS RTS 21:31 07/13/2024 93/56 62 108 21:29 07/13/2024 110 94% 21:25 07/13/2024 84/55 59 105 21:24 07/13/2024 106 94% 21:20 07/13/2024 85/56 61 110 21:19 07/13/2024 111 95% 21:14 07/13/2024 88/55 61 106 21:14 07/13/2024 111 95% 21:10 07/13/2024 81/55 59 110 21:09 07/13/2024 114 95% 21:04 07/13/2024 76/51 55 101 21:04 07/13/2024 112 95% 21:00 07/13/2024 86/53 60 114 20:59 07/13/2024 112 96% 20:55 07/13/2024 85/52 57 108 1 of 7 Vitals Measured Time BP MAP HR RR O2Sat ETCO2 Temp Pain GCS RTS 20:54 07/13/2024 117 94% 20:50 07/13/2024 89/56 63 108 20:49 07/13/2024 117 95% 20:45 07/13/2024 83/51 57 107 20:44 07/13/2024 115 95% 20:40 07/13/2024 90/57 64 109 20:39 07/13/2024 114 94% 20:35 07/13/2024 88/52 58 108 20:34 07/13/2024 114 95% 20:30 07/13/2024 82/51 57 111 20:29 07/13/2024 118 95% 20:25 07/13/2024 83/50 56 116 20:24 07/13/2024 116 94% 20:20 07/13/2024 84/51 58 113 20:19 07/13/2024 121 89% 20:15 07/13/2024 77/48 52 119 20:14 07/13/2024 115 95% 20:10 07/13/2024 82/56 61 109 20:09 07/13/2024 121 93% 20:04 07/13/2024 99/64 71 128 20:04 07/13/2024 120 95% 20:00 07/13/2024 90/59 65 121 19:59 07/13/2024 125 95% 19:56 07/13/2024 91/59 67 108 19:54 07/13/2024 123 94% 2 of 7 Vitals Measured Time BP MAP HR RR O2Sat ETCO2 Temp Pain GCS RTS 19:50 07/13/2024 96/60 65 131 19:49 07/13/2024 121 87% 19:45 07/13/2024 91/56 68 134 19:44 07/13/2024 120 92% 19:40 07/13/2024 90/53 58 124 19:39 07/13/2024 127 94% 19:35 07/13/2024 103/55 62 127 19:34 07/13/2024 130 95% 19:29 07/13/2024 84/58 63 128 19:29 07/13/2024 126 95% 19:25 07/13/2024 84/53 60 125 19:24 07/13/2024 122 94% 19:19 07/13/2024 90/58 65 128 19:19 07/13/2024 126 94% 19:14 07/13/2024 94/62 72 124 19:14 07/13/2024 118 95% 19:09 07/13/2024 107/73 80 129 19:09 07/13/2024 133 93% 19:04 07/13/2024 99/66 72 131 19:04 07/13/2024 127 94% 19:00 07/13/2024 107/63 73 134 18:59 07/13/2024 128 93% 18:55 07/13/2024 92/53 59 126 18:54 07/13/2024 132 93% 18:50 07/13/2024 94/56 63 133 3 of 7 Vitals Measured Time BP MAP HR RR O2Sat ETCO2 Temp Pain GCS RTS 18:49 07/13/2024 134 93% 18:45 07/13/2024 91/54 61 126 18:44 07/13/2024 124 91% 18:40 07/13/2024 78/50 56 116 18:39 07/13/2024 119 89% 18:35 07/13/2024 81/51 54 125 18:34 07/13/2024 121 93% 18:30 07/13/2024 79/50 56 119 18:29 07/13/2024 125 92% 18:25 07/13/2024 76/46 50 115 18:24 07/13/2024 125 94% 18:20 07/13/2024 71/46 51 123 18:19 07/13/2024 119 93% 18:15 07/13/2024 85/49 53 119 18:14 07/13/2024 129 88% 18:12 07/13/2024 72/48 53 119 18:09 07/13/2024 120 95% 18:07 07/13/2024 79/49 54 108 18:06 07/13/2024 80/48 56 118 18:04 07/13/2024 119 96% 18:01 07/13/2024 83/51 57 107 17:59 07/13/2024 119 96% 17:56 07/13/2024 84/48 57 109 17:54 07/13/2024 123 95% 17:51 07/13/2024 82/49 55 116 4 of 7 Vitals Measured Time BP MAP HR RR O2Sat ETCO2 Temp Pain GCS RTS 17:49 07/13/2024 126 92% 17:46 07/13/2024 87/49 53 108 17:44 07/13/2024 117 95% 17:42 07/13/2024 87/52 58 118 17:39 07/13/2024 124 89% 17:35 07/13/2024 130 94% 17:30 07/13/2024 125 95% 17:26 07/13/2024 89/52 58 116 17:25 07/13/2024 115 93% 17:21 07/13/2024 86/51 58 118 17:19 07/13/2024 119 91% 17:16 07/13/2024 85/49 54 123 17:14 07/13/2024 129 92% 17:11 07/13/2024 88/51 57 121 17:09 07/13/2024 130 92% 17:06 07/13/2024 84/48 52 129 17:04 07/13/2024 128 91% 17:02 07/13/2024 82/44 51 131 16:59 07/13/2024 135 91% 16:57 07/13/2024 74/50 56 131 16:54 07/13/2024 137 88% 16:49 07/13/2024 137 91% 16:46 07/13/2024 75/38 43 133 16:44 07/13/2024 135 91% 16:41 07/13/2024 81/44 49 132 5 of 7 Vitals Measured Time BP MAP HR RR O2Sat ETCO2 Temp Pain GCS RTS 16:39 07/13/2024 128 92% 16:38 07/13/2024 82/42 55 130 16:34 07/13/2024 131 91% 16:31 07/13/2024 99/54 63 136 16:26 07/13/2024 96/55 62 125 16:21 07/13/2024 99/57 63 125 16:16 07/13/2024 106/61 66 137 16:14 07/13/2024 90% 16:11 07/13/2024 93/54 61 125 16:09 07/13/2024 137 89% 16:06 07/13/2024 95/56 62 125 16:04 07/13/2024 132 91% 16:01 07/13/2024 87/55 61 89 15:59 07/13/2024 124 92% 15:56 07/13/2024 91/53 59 127 15:54 07/13/2024 110 93% 15:51 07/13/2024 94/50 53 133 15:49 07/13/2024 121 93% 15:47 07/13/2024 90/51 57 133 15:44 07/13/2024 130 (more content not included)... Normal [facility] INFLUENZA VIRUS RAPID A/Bon 07-13-2024 INFLUENZA VIRUS RAPID A/B INFLUENZA A NEGATIVE INFLUENZA B NEGATIVE INTERNAL NEG QC PASS INTERNAL POS QC PASS EXTERNAL QC DONE? YES SEND TO IC? NO A NEGATIVE TEST RESULT DOES NOT EXCLUDE INFECTION WITH INFLUENZA A OR B. THEREFORE, THE RESULTS OBTAINED FROM THIS FLU TEST SHOULD BE USED IN CONJUCTION WITH CLINICAL FINDINGS TO MAKE AN ACCURATE DIAGNOSIS. A POSITIVE RESULT DOES NOT RULE OUT CO-INFECTIONS WITH OTHER PATHOGENS OR IDENTIFY ANY SPECIFIC INFLUENZA A VIRUS SUBTYPE.CO-INFECTION WITH INFLUENZA A AND B IS RARE. IT IS RECOMMENDED THAT DUAL POSITIVE RESULTS BE CONFIRMED BY VIRAL CULTURE OR AN FDA-CLEARED INFLUENZA A AND B MOLECULAR ASSAY. INDIVIDUALS WHO HAVE RECEIVED NASALLY ADMINISTERED INFLUENZA A VACCINE MAY TEST POSITIVE IN COMMERCIALLY AVAILABLE INFLUENZA RAPID DIAGNOSTIC TESTS FOR UP TO THREE DAYS. RESULT CRITICAL? NO Normal [facility] Comment on above: Performed By: #### 2 [id number] #### [facility],[address] [place] [address] 36190 LACTATEon 07-13-2024 Lactate [Moles/Vol] 1.7 mmol/L Normal 0.4 - 2.0 [facility] Comment on above: Performed By: #### 2 [id number] #### [facility],[address] [place] [address] 95397 Lactate [Moles/Vol] 2.1 mmol/L High 0.4 - 2.0 [facility] Comment on above: Result Comment: LACT ATE 3 HR NOTIFIED TO: _RADHA [email or web address] 07/13/24.1625.KG . . . LACTATE 3 HR NOTIFIED BY: _RAHDA [email or web address]_RA_[email or web address] 07/13/24.1625.KG . . . Performed By: #### 2 55896 #### [facility],[address] [place] [address] 48083 NT-proBNPon 07-13-2024 Natriuretic peptide B (Bld) [Mass/Vol] 512 pg/mL High 0 - 450 [facility] Comment on above: Performed By: #### 2 08877 #### [facility],[address] [place] [address] 09699 TROPONINon 07-13-2024 HS TROPONIN 27.7 pg/mL Normal 0.0 - 76.2 [facility] Comment on above: Performed By: #### 2 81193 #### [facility],[address] [place] [address] 95763 HS TROPONIN 10.1 pg/mL Normal 0.0 - 76.2 [facility] Comment on above: Performed By: #### 2 83848 #### [facility],[address] [place] [address] 67665 URINALYSISon 07-13-2024 Amorphous NONE Normal [facility] Comment on above: Performed By: #### 2 03881 #### [facility],[address] [place] [address] 30046 Bacteria TRACE Normal [facility] Comment on above: Performed By: #### 2 32106 #### [facility],[address] [place] [address] 48893 Bilirubin Ql (U) Negative Normal NORMAL: NEGATIVE [facility] Comment on above: Performed By: #### 2 03953 #### [facility],[address] [place], [place] [id number] Casts NONE Normal [facility] Comment on above: Performed By: #### 2 39947 #### [facility],[address] [place] [address] 23515 Clarity (U) clear Normal NORMAL: CLEAR [facility] Comment on above: Performed By: #### 2 50957 #### [facility],[address] [place] [address] 99877 Color (U) yellow Normal NORMAL: YELLOW [facility] Comment on above: Performed By: #### 2 91473 #### [facility],[address] [place] [address] 20116 Crystals LM Nom (Urine sed) NONE Normal [facility] Comment on above: Performed By: #### 2 73125 #### [facility],[address] [place] [address] 42014 Epi Cells NONE Normal [facility] Comment on above: Performed By: #### 2 99266 #### [facility],[address] [place] [address] 06001 Glucose Ql (U) NORM Normal NORMAL: NORMAL [facility] Comment on above: Performed By: #### 2 40655 #### [facility],[address] [place] [address] 41809 Hemoglobin Ql (U) Negative Normal NORMAL: NEGATIVE [facility] Comment on above: Performed By: #### 2 73705 #### [facility],[address] [place] [address] 93936 Ketone Negative Normal NORMAL: NEGATIVE [facility] Comment on above: Performed By: #### 2 52919 #### [facility],[address] [place] [address],[facility] [address] Leukocytes 25 Abnormal NORMAL: NEGATIVE [facility] Comment on above: Performed By: #### 2 03042 #### [facility],[address] [place] [address] 80230 Mucous NONE Normal [facility] Comment on above: Performed By: #### 2 12692 #### [facility],[address] [place] [address] 51035 Nitrite Ql (U) Negative Normal NORMAL: NEGATIVE [facility] Comment on above: Performed By: #### 2 31753 #### [facility],[address] [place] [address] 32442 pH (U) 5 [pH] Normal NORMAL: 5.0-8.0 [facility] Comment on above: Performed By: #### 2 39323 #### [facility],[address] [place] [address] 95327 Protein Ql (U) 30 Abnormal NORMAL: NEGATIVE [facility] Comment on above: Performed By: #### 2 54109 #### [facility],[address] [place] [address] 84593 Rbc NONE Normal 0-3/hpf [facility] Comment on above: Performed By: #### 2 85140 #### [facility],[address] [place] [address] Sp [place] 1.010 Normal NORMAL: 1.010-1.030 [facility] Comment on above: Performed By: #### 2 63537 #### [facility],[address] [place] [address] Specimen Type R Normal [facility] Comment on above: Performed By: #### 2 97406 #### [facility],[address] [place] [address] Urinalysis dipstick W Reflex Microscopic panel (U) SEE BELOW Normal [facility] Comment on above: Result Comment: MICR OSCOPIC Performed By: #### 2 93560 #### [facility],[address] [place] [address] Urobilinog NORM Normal NORMAL: NORMAL [facility] Comment on above: Performed By: #### 2 67544 #### [facility],[address] [place] [address] Wbc 1-5 Normal 0-5/hpf [facility] Comment on above: Performed By: #### 2 53455 #### [facility],[address] [place] [address] Yeast NONE Normal [facility] Comment on above: Performed By: #### 2 20329 #### [facility],[address] [place] [address] Erythrocyte morphology asses smentOrdered By: Clement Lewis on 03-19-2024 RBC morphology finding Nom (Bld) NORM C+C NORMAL NORM C&C [facility] Platelet estimateOrdered By: Clement Lewis on 03-19-2024 Platelets LM Ql (Bld) ADEQUATE ADEQ [facility] Reticulocyte hemoglobin equi valent (RET-He) measurementOrdered By: Clement Lewis on 03-19-2024 Hemoglobin (Reticulocytes) [Entitic mass] 31.7 pg 30-35 [facility] Reticulocytes Auto (Bld) [#/ Vol]Ordered By: Clement Lewis on 03-19-2024 Reticulocytes/100 RBC (Bld) 0.74 % 0.5-1.5 [facility] Smudge cell detectionOrdered By: Clement Lewis on 03-19-2024 Smudge cells LM Ql (Bld) 2+ [facility] CBC + DIFF DAILYon Baso # 0.21 x10EE3/UL High 0.00 - 0.10 [facility] Comment on above: Performed By: #### 2 25881 #### [facility],[address] [place], [place] [id number] Basophils/100 WBC (Bld) 0.6 % Normal 0.0 - 2.0 [facility] Comment on above: Performed By: #### 2 09251 #### [facility],[address] [place] [address] 73867 CBC + DIFF DAILY Normal [facility] Comment on above: Result Comment: CBC- COMPLETE BLOOD COUNT Performed By: #### 2 19863 #### [facility],[address] [place] [address] 02662 CELL COUNT 100 Normal [facility] Comment on above: Performed By: #### 2 51474 #### [facility],[address] [place] [address] 30397 EO # 0.03 x10EE3/UL Normal 0.00 - 0.50 [facility] Comment on above: Performed By: #### 2 97931 #### [facility],[address] [place] [address] 77661 Eosinophils/100 WBC (Bld) 0.0 % Normal 0.0 - 7.0 [facility] Comment on above: Performed By: #### 2 89489 #### [facility],[address] [place] [address] 21321 Erythrocyte distribution width (RBC) [Ratio] 15.1 % Normal 12.0 - 15.6 [facility] Comment on above: Performed By: #### 2 86757 #### [facility],[address] [place] [address] Hematocrit (Bld) [Volume fraction] 46.1 % Normal 40.0 - 52.0 [facility] Comment on above: Performed By: #### 2 57157 #### [facility],[address] [place], [place] [phone] Hemoglobin (Bld) [Mass/Vol] 14.7 g/dL Normal 13.0 - 17.5 [facility] Comment on above: Performed By: #### 2 96472 #### [facility],[address] [place] [address] Lymph # 77.34 x10EE3/UL High 0.80 - 2.80 [facility] Comment on above: Performed By: #### 2 69832 #### [facility],[address] [place] [address] Lymphocytes/100 WBC (Bld) 79.0 % High 20.0 - 45.0 [facility] Comment on above: Performed By: #### 2 29591 #### [facility],[address] [place], [place] [phone] Lymphocytes/100 WBC (Bld) 81 % High 20 - 45 [facility] Comment on above: Performed By: #### 2 46622 #### [facility],[address] [place] [address] MANUAL DIFF SEE BELOW Normal [facility] Comment on above: Performed By: #### 2 33462 #### [facility],[address] [place] [address] 72101 MCH (RBC) [Entitic mass] 28 pg Normal 27 - 33 [facility] Comment on above: Performed By: #### 2 51322 #### [facility],[address] [place], [place] [phone] MCHC 32 X10 3 Normal 32 - 36 [facility] Comment on above: Performed By: #### 2 82067 #### [facility],[address] [place] [address] MCV (RBC) [Entitic vol] 89 fL Normal 81 - 98 [facility] Comment on above: Performed By: #### 2 03211 #### [facility],[address] [place] [address] [place] # 4.47 x10EE3/UL High 0.20 - 1.00 [facility] Comment on above: Performed By: #### 2 02920 #### [facility],[address] [place] [address] MONOS 6 % Normal 0 - 10 [facility] Comment on above: Performed By: #### 2 45934 #### [place] [address] MONOS % 4.6 % Normal 0.0 - 10.0 [facility] Comment on above: Performed By: #### 2 73114 #### [place] [address] Morphology Ty (Bld) [Interp] REVIEWED Normal [facility] Comment on above: Performed By: #### 2 23942 #### [place] [address] Neut # 15.85 x10EE3/UL High 1.50 - 7.10 [facility] Comment on above: Performed By: #### 2 77189 #### [place] [address] Neutrophils/100 WBC (Bld) 16.2 % Low 46.0 - 76.0 [facility] Comment on above: Performed By: #### 2 10262 #### [place] [address] PLATELET 282 x10EE3/UL Normal 150 - 450 [facility] Comment on above: Performed By: #### 2 59596 #### [place] [address] Platelet mean volume (Bld) [Entitic vol] 7.3 fL Normal 6.4 - 10.5 [facility] Comment on above: Result Comment: AUTO MATED DIFFERENTIAL Performed By: #### 2 87794 #### [facility],[address] [place] [address] 66923 RBC 5.19 x 10EE6/UL Normal 4.50 - 6.00 [facility] Comment on above: Performed By: #### 2 22646 #### [facility],[address] [place] [address] 09695 SEGS 13 % Low 46 - 76 [facility] Comment on above: Performed By: #### 2 98603 #### [facility],[address] [place] [address] 84244 WBC 97.9 x 10EE3/UL Critically high 4.5 - 10.8 [facility] Comment on above: Result Comment: { CA LLED TO MED SURG AT 0708 { READ BACK BY DAMION GARCIA CWB Performed By: #### 2 37290 #### [facility],[address] [place] [address] 68701 CBC + DIFF DAILYon 4 Baso # 0.77 x10EE3/UL High 0.00 - 0.10 [facility] Comment on above: Performed By: #### 2 80089 #### [facility],[address] [place] [address] 59056 Basophils/100 WBC (Bld) 0.7 % Normal 0.0 - 2.0 [facility] Comment on above: Performed By: #### 2 20774 #### [facility],[address] [place] [address] 32153 CBC + DIFF DAILY Normal [facility] Comment on above: Result Comment: CBC- COMPLETE BLOOD COUNT Performed By: #### 2 24286 #### [facility],[address] [place] [address] 44488 CELL COUNT 100 Normal [facility] Comment on above: Performed By: #### 2 67190 #### [facility],[address] [place] [address] 78593 EO # 0.06 x10EE3/UL Normal 0.00 - 0.50 [facility] Comment on above: Performed By: #### 2 81677 #### [facility],[address] [place] [address] 55527 Eosinophils/100 WBC (Bld) 0.1 % Normal 0.0 - 7.0 [facility] Comment on above: Performed By: #### 2 68297 #### [place] [address] Erythrocyte distribution width (RBC) [Ratio] 15.1 % Normal 12.0 - 15.6 [facility] Comment on above: Performed By: #### 2 73285 #### [place] [address] Hematocrit (Bld) [Volume fraction] 49.0 % Normal 40.0 - 52.0 [facility] Comment on above: Performed By: #### 2 17797 #### [facility] [facility],[address] [place] [address] 84706 Hemoglobin (Bld) [Mass/Vol] 15.8 g/dL Normal 13.0 - 17.5 [facility] Comment on above: Performed By: #### 2 79329 #### [address] [address] Lymph # 75.45 x10EE3/UL High 0.80 - 2.80 [facility] Comment on above: Performed By: #### 2 56111 #### [address] [address]704 Lymphocytes/100 WBC (Bld) 67.8 % High 20.0 - 45.0 [facility] Comment on above: Performed By: #### 2 82542 #### [address] [address] Lymphocytes/100 WBC (Bld) 90 % High 20 - 45 [facility] Comment on above: Performed By: #### 2 31351 #### [facility],[address] [place] [address] MANUAL DIFF SEE BELOW Normal [facility] Comment on above: Performed By: #### 2 21444 #### [facility],[address] [place] [address] MCH (RBC) [Entitic mass] 28 pg Normal 27 - 33 [facility] Comment on above: Performed By: #### 2 46937 #### [facility],[address] [place] [address] MCHC 32 X10 3 Normal 32 - 36 [facility] Comment on above: Performed By: #### 2 20944 #### [facility],[address] [place] [address] MCV (RBC) [Entitic vol] 87 fL Normal 81 - 98 [facility] Comment on above: Performed By: #### 2 87082 #### [facility],[address] [place] [address] [place] # 17.81 x10EE3/UL High 0.20 - 1.00 [facility] Comment on above: Performed By: #### 2 64734 #### [facility],[address] [place] [address] MONOS 1 % Normal 0 - 10 [facility] Comment on above: Performed By: #### 2 98706 #### [facility],[address] [place] [address] MONOS % 16.0 % High 0.0 - 10.0 [facility] Comment on above: Performed By: #### 2 85730 #### [facility],[address] [place] [address] Morphology Ty (Bld) [Interp] N/A Normal [facility] Comment on above: Performed By: #### 2 03304 #### [facility],[address] [place] [address] 46794 Neut # 17.17 x10EE3/UL High 1.50 - 7.10 [facility] Comment on above: Performed By: #### 2 31759 #### [facility],[address] [place] [address] 38976 Neutrophils/100 WBC (Bld) 15.4 % Low 46.0 - 76.0 [facility] Comment on above: Performed By: #### 2 49822 #### [facility],[address] [place] [address] 34025 NRBC 0 /100 Normal [facility] Comment on above: Performed By: #### 2 47561 #### [facility],[address] [place] [address] 46407 PLATELET 319 x10EE3/UL Normal 150 - 450 [facility] Comment on above: Performed By: #### 2 71032 #### [facility],[address] [place] [address] 58590 Platelet mean volume (Bld) [Entitic vol] 7.7 fL Normal 6.4 - 10.5 [facility] Comment on above: Result Comment: AUTO MATED DIFFERENTIAL Performed By: #### 2 47006 #### [facility],[address] [place] [address] 77492 RBC 5.62 x 10EE6/UL Normal 4.50 - 6.00 [facility] Comment on above: Performed By: #### 2 62278 #### [facility],[address] [place] [address] 27995 SEGS 9 % Low 46 - 76 [facility] Comment on above: Performed By: #### 2 61919 #### [facility],[address] [place] [address] 75921 WBC 111.3 x 10EE3/UL Critically high 4.5 - 10.8 [facility] Comment on above: Result Comment: { CA LLED TO [facility] @1349 { READ BACK BY JMelecio Performed By: #### 2 39229 #### [facility],[address] [place] [address] 52021 CBC + DIFFon 03-05-2024 Baso # 0.25 x10EE3/UL High 0.00 - 0.10 [facility] Comment on above: Performed By: #### 2 71859 #### [facility],[address] [place] [address] 06908 Basophils/100 WBC (Bld) 0.4 % Normal 0.0 - 2.0 [facility] Comment on above: Performed By: #### 2 04050 #### [facility],[address] [place] [address] 00145 CBC + DIFF Normal [facility] Comment on above: Result Comment: CBC- COMPLETE BLOOD COUNT Performed By: #### 2 84325 #### [facility],[address] [place] [address] 95533 CELL COUNT 100 Normal [facility] Comment on above: Performed By: #### 2 31541 #### [facility],[address] [place] [address] 12407 EO # 0.48 x10EE3/UL Normal 0.00 - 0.50 [facility] Comment on above: Performed By: #### 2 07163 #### [facility],[address] [place] [address] 67866 Eosinophils/100 WBC (Bld) 0.8 % Normal 0.0 - 7.0 [facility] Comment on above: Performed By: #### 2 96344 #### [facility],[address] [place] [address] 46594 Erythrocyte distribution width (RBC) [Ratio] 15.2 % Normal 12.0 - 15.6 [facility] Comment on above: Performed By: #### 2 23045 #### [facility],[address] [place] [address] 41258 Hematocrit (Bld) [Volume fraction] 48.8 % Normal 40.0 - 52.0 [facility] Comment on above: Performed By: #### 2 93686 #### [facility],[address] [place] [address] 97236 Hemoglobin (Bld) [Mass/Vol] 15.3 g/dL Normal 13.0 - 17.5 [facility] Comment on above: Performed By: #### 2 96191 #### [facility],[address] [place] [address] 19426 Lymph # 48.37 x10EE3/UL High 0.80 - 2.80 [facility] Comment on above: Performed By: #### 2 62569 #### [facility],[address] [place] [address] 46123 Lymphocytes/100 WBC (Bld) 76.3 % High 20.0 - 45.0 [facility] Comment on above: Performed By: #### 2 91826 #### [facility],[address] [place] [address] 42148 Lymphocytes/100 WBC (Bld) 80 % High 20 - 45 [facility] Comment on above: Performed By: #### 2 24360 #### [facility],[address] [place] [address] 23839 MANUAL DIFF SEE BELOW Normal [facility] Comment on above: Performed By: #### 2 55553 #### [facility],[address] [place] [address] 40186 MCH (RBC) [Entitic mass] 28 pg Normal 27 - 33 [facility] Comment on above: Performed By: #### 2 16954 #### [facility],[address] [place] [address] 84731 MCHC 31 X10 3 Low 32 - 36 [facility] Comment on above: Performed By: #### 2 92823 #### [facility],[address] [place] [address] 83206 MCV (RBC) [Entitic vol] 88 fL Normal 81 - 98 [facility] Comment on above: Performed By: #### 2 31713 #### [facility],[address] [place] [address] 17246 [place] # 5.56 x10EE3/UL High 0.20 - 1.00 [facility] Comment on above: Performed By: #### 2 71593 #### [facility],[address] [place] [address] 48400 MONOS 8 % Normal 0 - 10 [facility] Comment on above: Performed By: #### 2 23790 #### [facility],[address] [place] [address] 57864 MONOS % 8.8 % Normal 0.0 - 10.0 [facility] Comment on above: Performed By: #### 2 74038 #### [facility],[address] [place] [address] 03015 Morphology Ty (Bld) [Interp] SEE BELOW Normal [facility] Comment on above: Performed By: #### 2 42599 #### [facility],[address] [place] [address] 05551 Neut # 8.73 x10EE3/UL High 1.50 - 7.10 [facility] Comment on above: Performed By: #### 2 57498 #### [facility],[address] [place] [address] 83032 Neutrophils/100 WBC (Bld) 13.8 % Low 46.0 - 76.0 [facility] Comment on above: Performed By: #### 2 54431 #### [facility],[address] [place] [address] 87984 PLATELET 256 x10EE3/UL Normal 150 - 450 [facility] Comment on above: Performed By: #### 2 16755 #### [facility],[address] [place] [address] 60477 Platelet mean volume (Bld) [Entitic vol] 7.4 fL Normal 6.4 - 10.5 [facility] Comment on above: Result Comment: AUTO MATED DIFFERENTIAL Performed By: #### 2 60968 #### [facility],[address] [place] [address] 05798 PLT EST NORMAL Normal [facility] Comment on above: Performed By: #### 2 48491 #### [facility],[address] [place] [address] RBC 5.56 x 10EE6/UL Normal 4.50 - 6.00 [facility] Comment on above: Performed By: #### 2 71097 #### [facility],[address] [place] [address] SEGS 12 % Low 46 - 76 [facility] Comment on above: Performed By: #### 2 29713 #### [facility],[address] [place], [place] [address] WBC 63.4 x 10EE3/UL Critically high 4.5 - 10.8 [facility] Comment on above: Result Comment: { CA LLED TO [facility] AT 1201 { READ BACK BY MURALI TO CWB INFORMED BY INT MED THAT PATIENT WAS IN ER Performed By: #### 2 50001 #### [facility],[address] [place], [place] [address] Baso # 0.34 x10EE3/UL High 0.00 - 0.10 [facility] Comment on above: Performed By: #### 2 67689 #### [facility],[address] [place] [address] 98452 Basophils/100 WBC (Bld) 0.4 % Normal 0.0 - 2.0 [facility] Comment on above: Performed By: #### 2 67059 #### [facility],[address] [place], [place] [id number] CBC + DIFF Normal [facility] Comment on above: Result Comment: CBC- COMPLETE BLOOD COUNT Performed By: #### 2 37389 #### [place] [address] CELL COUNT 100 Normal [facility] Comment on above: Performed By: #### 2 09758 #### [facility],[address] [place] [address] EO # 0.66 x10EE3/UL High 0.00 - 0.50 [facility] Comment on above: Performed By: #### 2 88476 #### [facility],[address] [place] [address] Eosinophils/100 WBC (Bld) 0.8 % Normal 0.0 - 7.0 [facility] Comment on above: Performed By: #### 2 87547 #### [place] [address] Erythrocyte distribution width (RBC) [Ratio] 15.2 % Normal 12.0 - 15.6 [facility] Comment on above: Performed By: #### 2 23786 #### [place] [address] Hematocrit (Bld) [Volume fraction] 48.3 % Normal 40.0 - 52.0 [facility] Comment on above: Performed By: #### 2 86380 #### [facility],[address] [place] [address] Hemoglobin (Bld) [Mass/Vol] 15.5 g/dL Normal 13.0 - 17.5 [facility] Comment on above: Performed By: #### 2 63833 #### [facility],[address] [place] [address] Lymph # 66.32 x10EE3/UL High 0.80 - 2.80 [facility] Comment on above: Performed By: #### 2 65587 #### [facility],[address] [place] [address] Lymphocytes/100 WBC (Bld) 74.9 % High 20.0 - 45.0 [facility] Comment on above: Performed By: #### 2 53076 #### [facility],[address] [place] [address] Lymphocytes/100 WBC (Bld) 80 % High 20 - 45 [facility] Comment on above: Performed By: #### 2 93577 #### [facility],[address] [place] [address] MANUAL DIFF SEE BELOW Normal [facility] Comment on above: Performed By: #### 2 30751 #### [place] [address] MCH (RBC) [Entitic mass] 28 pg Normal 27 - 33 [facility] Comment on above: Performed By: #### 2 16518 #### [place] [address] MCHC 32 X10 3 Normal 32 - 36 [facility] Comment on above: Performed By: #### 2 76322 #### [place] [address] MCV (RBC) [Entitic vol] 87 fL Normal 81 - 98 [facility] Comment on above: Performed By: #### 2 16460 #### [facility],[address] [place] [address] [place] # 11.43 x10EE3/UL High 0.20 - 1.00 [facility] Comment on above: Performed By: #### 2 12868 #### [place] [address] MONOS 9 % Normal 0 - 10 [facility] Comment on above: Performed By: #### 2 90195 #### [place] [address] MONOS % 12.9 % High 0.0 - 10.0 [facility] Comment on above: Performed By: #### 2 22693 #### [facility],[address] [place] [address] 71972 Morphology Ty (Bld) [Interp] REVIEWED Normal [facility] Comment on above: Performed By: #### 2 85328 #### [facility],[address] [place] [address] 38789 Neut # 9.79 x10EE3/UL High 1.50 - 7.10 [facility] Comment on above: Performed By: #### 2 54418 #### [facility],[address] [place] [address] 53215 Neutrophils/100 WBC (Bld) 11.1 % Low 46.0 - 76.0 [facility] Comment on above: Performed By: #### 2 91878 #### [facility],[address] [place] [address] 35303 PLATELET 241 x10EE3/UL Normal 150 - 450 [facility] Comment on above: Performed By: #### 2 66641 #### [facility],[address] [place] [address] 84172 Platelet mean volume (Bld) [Entitic vol] 7.3 fL Normal 6.4 - 10.5 [facility] Comment on above: Result Comment: AUTO MATED DIFFERENTIAL Performed By: #### 2 02239 #### [facility],[address] [place] [address] 37611 RBC 5.57 x 10EE6/UL Normal 4.50 - 6.00 [facility] Comment on above: Performed By: #### 2 27149 #### [facility],[address] [place] [address] 89955 SEGS 11 % Low 46 - 76 [facility] Comment on above: Performed By: #### 2 83154 #### [facility],[address] [place] [address] 43569 WBC 88.5 x 10EE3/UL Critically high 4.5 - 10.8 [facility] Comment on above: Result Comment: { CA LLED TO ED AT 1008 { READ BACK BY SE TO CWB Performed By: #### 2 45657 #### [facility],[address] [place] [address] 84458 CHEST 1 VIEWon 03-05-2024 CHEST [address] [address] Patient: BASSEM YEE Phone#: : 1945 Age: 78 Gender: M Pt. Type: ER Account: [id number] Location: 052 Ordering: TEMO WELLER Exam Date: 03/05/2024/9:52 Family Phys: SHIRA PAVON Charge Code: 100238 Physician: Grand Order #: [id number] Dose#: PROCEDURE: X-RAY CHEST 1 VIEW COMPARISON: [facility], XR, CHEST 2 VIEWS, 03/03/2024, 9:35. INDICATIONS: Shortness of breath. FINDINGS: LUNGS: Ill-defined opacity at the left lung base, the appearance favors atelectasis though appropriate clinical setting may represent infiltrate. Hyperaeration of the lung frazier. Chronic interstitial changes. VASCULATURE: Normal. Unremarkable pulmonary vasculature. CARDIAC: 3 valve prosthetics identified. Atrial appendage closure device present. MEDIASTINUM: Normal. No visible mass or adenopathy. PLEURA: Normal. No effusion or pleural thickening. BONES: Median sternotomy wires are present. Degenerative changes of the spine. OTHER: Negative. CONCLUSION: 1. Ill-defined opacity in the left lung base, likely represents atelectasis though cannot exclude infiltrate 2. Hyperaeration of the lung frazier Dictated by: Susana Small MD on 03/05/2024 at 10:01 Approved by: Susana Small MD on 03/05/2024 at 10:04 Normal [facility] CMP with eGFRon 03-05-2024 AGE 78 years Normal [facility] Comment on above: Performed By: #### 2 54922 #### [facility],[address] [place] [address] 29961 Albumin [Mass/Vol] 3.5 g/dL Normal 3.4 - 5.0 [facility] Comment on above: Performed By: #### 2 01777 #### [facility],[address] [place] [address] 69941 Albumin/Globulin [Mass ratio] 1.1 {ratio} Normal 0.9 - 1.6 [facility] Comment on above: Performed By: #### 2 95022 #### [facility],[address] [place] [address] 03409 ALK PHOS 59 U/L Normal 46 - 116 [facility] Comment on above: Performed By: #### 2 63509 #### [facility],[address] [place] [address] 75695 ALT [Catalytic activity/Vol] 24 U/L Normal 16 - 63 [facility] Comment on above: Performed By: #### 2 77569 #### [facility],[address] [place] [address] 87544 Anion gap [Moles/Vol] 10 mmol/L Normal 10 - 20 [facility] Comment on above: Performed By: #### 2 38558 #### [facility],[address] [place] [address] 03214 AST [Catalytic activity/Vol] 16 U/L Normal 15 - 37 [facility] Comment on above: Performed By: #### 2 37900 #### [facility],[address] [place] [address] 69417 B/C RATIO 18 ratio Normal 0 - 30 [facility] Comment on above: Performed By: #### 2 29929 #### [facility],[address] [place] [address] 60607 Bilirubin [Mass/Vol] 1.1 mg/dL High 0.2 - 1.0 [facility] Comment on above: Performed By: #### 2 20091 #### [facility],[address] [place] [address] 81104 Calcium [Mass/Vol] 9.0 mg/dL Normal 8.5 - 10.1 [facility] Comment on above: Performed By: #### 2 67781 #### [facility],[address] [place] [address] 49757 Chloride [Moles/Vol] 106 mmol/L Normal 98 - 107 [facility] Comment on above: Performed By: #### 2 67743 #### [facility],[address] [place] [address] 33485 CMP with eGFR Normal [facility] Comment on above: Result Comment: COMP REHENSIVE METABOLIC PANEL Performed By: #### 2 03213 #### [facility],[address] [place] [address] 41392 CO2 [Moles/Vol] 31.4 mmol/L Normal 21.0 - 32.0 [facility] Comment on above: Performed By: #### 2 45088 #### [facility],[address] [place] [address] 35255 Creatinine [Mass/Vol] 1.22 mg/dL Normal 0.70 - 1.30 [facility] Comment on above: Performed By: #### 2 39838 #### [facility],[address] [place] [address] 09639 eGFR 58 ML/MINUTE Low 60 - 999 [facility] Comment on above: Performed By: #### 2 12672 #### [facility],[address] [place] [address] 14804 GFR/1.73 sq M.predicted among non-blacks MDRD (S/P/Bld) [Vol rate/Area] mL/min/{1.73_m2} Normal 60 - 999 [facility] Comment on above: Result Comment: ACCO RDING TO THE NATIONAL KIDNEY DISEASE EDUCATION PROGRAM(NKDE), A NORMAL eGFR IS A VALUE GREATER THAN OR EQUAL TO 60 ML/MIN/1.73 SQ METERS. CHRONIC KIDNEY DISEASE: <60mL/MIN/1.73 SQ METERS KIDNEY FAILURE: <15mL/MIN/1.73 SQ METERS THIS TEST SHOULD ONLY BE USED FOR PATIENTS 18 YEARS OF AGE AND OLDER. Performed By: #### 2 93423 #### [facility],[address] [place] [address] 08701 Globulin (S) [Mass/Vol] 3.1 g/dL Normal 1.5 - 3.8 [facility] Comment on above: Performed By: #### 2 99635 #### [facility],[address] [place] [address] 72717 Glucose [Mass/Vol] 89 mg/dL Normal 74 - 106 [facility] Comment on above: Performed By: #### 2 30122 #### [facility],[address] [place] [address] 62462 Potassium [Moles/Vol] 3.5 mmol/L Normal 3.5 - 5.1 [facility] Comment on above: Performed By: #### 2 33059 #### [facility],[address] [place] [address] 99870 Protein [Mass/Vol] 6.6 g/dL Normal 6.4 - 8.2 [facility] Comment on above: Performed By: #### 2 42130 #### [facility],[address] [place] [address] 32025 Sodium [Moles/Vol] 144 mmol/L Normal 136 - 145 [facility] Comment on above: Performed By: #### 2 20251 #### [facility],[address] [place] [address] 79886 Urea nitrogen [Mass/Vol] 22 mg/dL High 7 - 18 [facility] Comment on above: Performed By: #### 2 30507 #### [facility],[address] [place] [address] 34498 AGE 78 years Normal [facility] Comment on above: Performed By: #### 2 41502 #### [facility],[address] [place] [address] 77639 Albumin [Mass/Vol] 3.3 g/dL Low 3.4 - 5.0 [facility] Comment on above: Performed By: #### 2 96403 #### [facility],[address] [place] [address] 36566 Albumin/Globulin [Mass ratio] 1.0 {ratio} Normal 0.9 - 1.6 [facility] Comment on above: Performed By: #### 2 24383 #### [facility],[address] [place] [address] 13725 ALK PHOS 57 U/L Normal 46 - 116 [facility] Comment on above: Performed By: #### 2 70101 #### [facility],[address] [place] [address] 46759 ALT [Catalytic activity/Vol] 20 U/L Normal 16 - 63 [facility] Comment on above: Performed By: #### 2 26364 #### [facility],[address] [place] [address] 60616 Anion gap [Moles/Vol] 11 mmol/L Normal 10 - 20 [facility] Comment on above: Performed By: #### 2 10595 #### [facility],[address] [place] [address] 38932 AST [Catalytic activity/Vol] 19 U/L Normal 15 - 37 [facility] Comment on above: Performed By: #### 2 76297 #### [facility],[address] [place] [address] 38006 B/C RATIO 18 ratio Normal 0 - 30 [facility] Comment on above: Performed By: #### 2 37402 #### [facility],[address] [place] [address] 67016 Bilirubin [Mass/Vol] 1.0 mg/dL Normal 0.2 - 1.0 [facility] Comment on above: Performed By: #### 2 23631 #### [facility],[address] [place] [address] 78233 Calcium [Mass/Vol] 9.0 mg/dL Normal 8.5 - 10.1 [facility] Comment on above: Performed By: #### 2 53079 #### [facility],[address] [place] [address] 06580 Chloride [Moles/Vol] 106 mmol/L Normal 98 - 107 [facility] Comment on above: Performed By: #### 2 48451 #### [facility],[address] [place] [address] 29822 CMP with eGFR Normal [facility] Comment on above: Result Comment: COMP REHENSIVE METABOLIC PANEL Performed By: #### 2 01701 #### [facility],[address] [place] [address] 46509 CO2 [Moles/Vol] 31.5 mmol/L Normal 21.0 - 32.0 [facility] Comment on above: Performed By: #### 2 43023 #### [facility],[address] [place] [address] 26225 Creatinine [Mass/Vol] 1.27 mg/dL Normal 0.70 - 1.30 [facility] Comment on above: Performed By: #### 2 64997 #### [facility],[address] [place] [address] 91388 eGFR 55 ML/MINUTE Low 60 - 999 [facility] Comment on above: Performed By: #### 2 06655 #### [facility],[address] [place] [address] 39522 GFR/1.73 sq M.predicted among non-blacks MDRD (S/P/Bld) [Vol rate/Area] mL/min/{1.73_m2} Normal 60 - 999 [facility] Comment on above: Result Comment: ACCO RDING TO THE NATIONAL KIDNEY DISEASE EDUCATION PROGRAM(NKDE), A NORMAL eGFR IS A VALUE GREATER THAN OR EQUAL TO 60 ML/MIN/1.73 SQ METERS. CHRONIC KIDNEY DISEASE: <60mL/MIN/1.73 SQ METERS KIDNEY FAILURE: <15mL/MIN/1.73 SQ METERS THIS TEST SHOULD ONLY BE USED FOR PATIENTS 18 YEARS OF AGE AND OLDER. Performed By: #### 2 [id number] #### [facility],[address] [place] [address] 59448 Globulin (S) [Mass/Vol] 3.2 g/dL Normal 1.5 - 3.8 [facility] Comment on above: Performed By: #### 2 01833 #### [facility],[address] [place] [address] 61368 Glucose [Mass/Vol] 87 mg/dL Normal 74 - 106 [facility] Comment on above: Performed By: #### 2 [id number] #### [facility],[address] [place] [address] 72933 Potassium [Moles/Vol] 3.5 mmol/L Normal 3.5 - 5.1 [facility] Comment on above: Performed By: #### 2 [id number] #### [facility],[address] [place] [address] 59610 Protein [Mass/Vol] 6.5 g/dL Normal 6.4 - 8.2 [facility] Comment on above: Performed By: #### 2 83283 #### [facility],[address] [place] [address] 84163 Sodium [Moles/Vol] 145 mmol/L Normal 136 - 145 [facility] Comment on above: Performed By: #### 2 63389 #### [facility],[address] [place] [address] 20798 Urea nitrogen [Mass/Vol] 23 mg/dL High 7 - 18 [facility] Comment on above: Performed By: #### 2 73836 #### [facility],[address] [place] [address] 10746 CORONAVIRUS (SARS) ANTIGEN T ESTon 03-05-2024 EXTERNAL QC DONE? YES Normal [facility] Comment on above: Performed By: #### 2 32801 #### [facility],[address] [place] [address] 84513 INTERNAL CONTROL PASS Normal [facility] Comment on above: Performed By: #### 2 08885 #### [facility],[address] [place] [address],[facility] [address] SARS ANTIGEN Negative Normal NORMAL: NEGATIVE [facility] Comment on above: Performed By: #### 2 16031 #### [facility],[address] [place] [address],[facility] [address] SEND TO IC? NO Normal [facility] Comment on above: Result Comment: SARS -CoV-2 THIS TEST IS BEING USED UNDER THE FDA EUA PROCEDURE. THIS ASSAY HAS BEEN VALIDATED AT [facility] FOR USE WITH NASAL AND NASOPHARYNGEAL SWAB SPECIMENS. INTERPRETIVE DATA TEST RESULTS SHOULD ALWAYS BE CONSIDERED IN THE CONTEXT OF CLINICAL OBSERVATIONS AND EPIDEMIOLOGICAL DATA IN MAKING FINAL DIAGNOSIS AND PATIENT MANAGEMENT DECISIONS. PATIENT MANAGEMENT SHOULD FOLLOW CURRENT CDC GUIDELINES. THE ESTUARDO SARS ANTIGEN DEACON DOES NOT DIFFERENTIATE BETWEEN SARS-CoV & SARS-CoV-2. A POSITIVE TEST RESULT INDICATES THE PRESENCE OF SARS-CoV-2 NUCLEOCAPSID PROTEIN ANTIGEN, AND THE PATIENT IS INFECTED WITH THE VIRUS AND PRESUMED TO BE CONTAGIOUS. A NEGATIVE TEST RESULT FOR THIS TEST MEANS THAT SARS-CoV-2 NUCLEOCAPSID PROTEIN ANTIGEN WAS NOT PRESENT IN THE SPECIMEN ABOVE THE LIMIT OF DETECTION. HOWEVER, A NEGATIVE RESULT DOES NOT RULE OUT COVID-19 AND SHOULD NOT BE USED THE SOLE BASIS FOR TREATMENT OR PATIENT MANAGEMENT DECISIONS. A NEGATIVE RESULT DOES NOT EXCLUDE THE POSSIBILITY OF COVID-19. NEGATIVE RESULTS, FROM PATIENTS WITH SYMPTOM ONSET BEYOND FIVE DAYS, SHOULD BE TREATED PRESUMPTIVE AND CONFIRMATION WITH A MOLECULAR ASSAY, IF NECESSARY, FOR PATIENT MANAGEMENT, MAY BE PERFORMED. WHEN DIAGNOSTIC TESTING IS NEGATIVE, THE POSSIBLILTY OF A FALSE NEGATIVE RESULT SHOULD BE CONSIDERED IN THE CONTEXT OF A PATIENT'S RECENT EXPOSURES AND THE PRESENCE OF CLINICAL SIGNS AND SYMPTOMS CONSISTENT WITH COVID-19. THE POSSIBILITY OF A FALSE NEGATIVE RESULT SHOULD ESPECIALLY BE CONSIDERED IF THE PATIENT'S RECENT EXPOSURES OR CLINICAL PRESENTATION INDICATE THAT COVID-19 IS LIKELY, AND DIAGNOSTIC TESTS FOR OTHER CAUSES OF ILLNESS (e.g., OTHER RESPIRATORY ILLNESS) ARE NEGATIVE. IF COVID-19 IS STILL SUSPECTED BASED ON EXPOSURE HISTORY TOGETHER WITH OTHER CLINICAL FINDINGS, RE-TESTING SHOULD BE CONSIDERED BY HEALTHCARE PROVIDERS IN CONSULTATION WITH PUBLIC HEALTH AUTHORITIES. Performed By: #### 2 [id number] #### [facility],[address] [place] [address] CHEST (PE PROTOCOL)on CT CHEST (PE PROTOCOL) [address] [address] Patient: BASSEM YEE Phone#: : 1945 Age: 78 Gender: M Pt. Type: ER Account: [id number] Location: 2 Ordering: TEMO WELLER Exam Date: 03/05/2024/13:10 Family Phys: PHILELADIA JAQUELINREJI Charge Code: 605202 Physician: Grand Order #: [id number] Dose#: [id number] PROCEDURE: CT CHEST WITH CONTRAST FOR PE COMPARISON: [facility], CT, CHEST/ABDOMEN/PELVIS W CON, 05/21/2019, 21:11. [facility], XR, CHEST 1 VIEW, 03/05/2024, 9:52. [facility], CT, CHEST PE W CON, 09/21/2023, 13:00. INDICATIONS: Shortness of Breath. TECHNIQUE: After obtaining the patient's consent, CT images were obtained with non-ionic intravenous contrast material. Multi-planar images were created to optimize visualization of vascular anatomy with MPR/MIPS and 3D imaging. All CT scans at this facility use dose modulation, iterative reconstruction, and/or weight based dosing when appropriate to reduce radiation dose to as low as reasonably achievable. IV CONTRAST: Omnipaque 350,80ml TOTAL DOSE: 5.2 CTDIvol(mGy) FINDINGS: VASCULATURE: No pulmonary embolism. AORTA: No aortic aneurysm. Atherosclerotic calcifications of the aorta and branch vessels. LUNGS: Emphysematous changes most pronounced in the upper lobes. Respiratory motion somewhat limits the evaluation. In the bilateral posterior sulci, right greater than left there are ill-defined ground- glass opacities, most consistent with infectious process. There is bronchial wall thickening in the bilateral lower lobes. Stable nodule in the left lingula, series 4, image 66 measuring 0.4 x 0.5 cm, unchanged compared to 2020. Stable right lower lobe pulmonary nodule measuring 0.4 cm, series 4 image 87, unchanged compared to 2020. IAN: Normal. No mass or adenopathy. MEDIASTINUM: Reactive mediastinal lymph nodes. CARDIAC: Surgical changes of prior aortic, mitral and tricuspid valve view reply are seen. Atrial appendage closure device present. Continued Report - Page 2 of 2 Patient: BASSEM YEE Phone#: : 1945 Age: 78 Gender: M Pt. Type: ER Account: [id number] Location: 2 Ordering: TEMO CSERNYIK Exam Date: 03/05/2024/13:10 Family Phys: SHIRA PAVON Charge Code: 137430 Physician: Grand Order #: [id number] Dose#: 5.2 PLEURA: Normal. No mass or effusion. CHEST WALL: Normal. No mass or axillary adenopathy. LIMITED ABDOMEN: Cyst in the left lobe of the liver measuring 2.3 x 1.2 cm. BONES: Facet arthropathy in the lower cervical spine. Median sternotomy wires are present. OTHER: Negative. CONCLUSION: 1. No pulmonary embolism. 2. Bilateral posterior lower lobe ill-defined opacities, most consistent with infectious process. There is associated bilateral lower lobe bronchial wall thickening. Dictated by: Susana Small MD on 03/05/2024 at 13:29 Approved by: Susana Small MD on 03/05/2024 at 13:41 Normal [facility] CULTURE BLOOD [MEENA]on Microscopic examination of blood, culture CULTURE BLOOD [MEENA] _BLOOD CULTURE_ [facility] AND [facility]ACH[facility] FOR SCANNED REPORT 03/11/[email or web address].COMPLET E Normal [facility] Comment on above: Performed By: #### 2 13760 #### [facility],[address] [place] [address] Microscopic examination of blood, culture CULTURE BLOOD [MEENA] _BLOOD CULTURE_ [facility] RE[facility] AND ATTACHMENTS FOR SCANNED REPORT 03/11/24.53.TLJ.COMPLET E Normal [facility] Comment on above: Performed By: #### 2 36801 #### [facility],[address] [place] [address] 84773 D-DIMER, QUANTITATIVEon 02-12 D-DIMER QUANT 597 ng/ml High 0 - 230 [facility] Comment on above: Performed By: #### 2 51874 #### [facility],[address] [place] [address] 36950 D-DIMER, QUANTITATIVE Normal [facility] Comment on above: Result Comment: ONI T D-DIMER Performed By: #### 2 50640 #### [facility],[address] [place] [address] 96007 ED FACILITY CODING SUMMARYon 03-05-2024 ED FACILITY CODING SUMMARY Facility Coding Facility Coding Summary [address] [address] [id number] 03/05/2024 Patient: BASSEM YEE Sex: Male : 1945 Age: 78y Providers: Temo Weller D.O. DIAGNOSTIC WORKUP Chief Complaint DYSPNEA and HISTORY OF CHRONIC OBSTRUCTIVE PULMONARY DISEASE. -- Temo Weller D.O. Principal Diagnosis Acute exacerbation of COPD (emphysematous, asthmatic). -- Temo Weller D.O. Bronchopneumonia with hypoxemia. -- Temo Weller D.O. ICD-10 Codes J18.0: Bronchopneumonia, unspecified organism J18.9: Pneumonia, unspecified organism J44.1: Chronic obstructive pulmonary disease with (acute) exacerbation R09.02: Hypoxemia PROCEDURES Procedures from Providers: EKG (CPT: 20165) -- Temo Weller D.O. Procedures from Nurses/Facility: BloodDrawn (Blood drawn from, blood drawn with, blood drawn from not documented.) Arterial Blood Gases (Location not documented.) 1 of 2 Facility Coding EKG (CPT: 35798) Inhalation Treatment (CPT: 05661) IV Push Solu-MEDROL IVP (CPT: 53320) IV Infusion Levaquin IVPB Premix (CPT: 87908) SUPPLIES [facility] [id number] This is a partial abstract of information documented in the full record. Blending Operator must use independent judgment in selecting codes. CPT copyright 2022 [employer]. All Rights Reserved. 2 of 2 Normal [facility] ED MED ADMINISTRATION DETAIL on 03-05-2024 ED MED ADMINISTRATION DETAIL Trans Router Medication Administration Record [place] [id number] [facility] [place] [address] [id number] 03/05/2024 Patient: BASSEM YEE Sex: Male : 1945 Age: 78y MEASUREMENTS: Wt: 63.0 kg, Ht/Henrique: 69.0 in, BMI: 20.53 ALLERGIES: sulfa Medication Ordered Medication Administration Date/Time DuoNeb Neb Tx 3 09:59 03/05 DuoNeb Neb Tx 3 mL given. Given by the respiratory Given mL (NOW x1); therapist. Allergies verified and confirmed 5 rights. Information 09:59 03/05/2024 (Sched: q10m X3) 1 reviewed with patient. Verbalizes understanding. - 10:00 Saud Morelos of 3 Morelos Scanned DuoNeb Neb Tx 3 10:57 03/05 DuoNeb Neb Tx 3 mL given. Given by the respiratory Given mL (NOW x1); therapist. Allergies verified and confirmed 5 rights. Information 10:57 03/05/2024 (Sched: q10m X3) 2 reviewed with patient. Verbalizes understanding. - 10:57 Saud Morelos of 3 Morelos Scanned DuoNeb Neb Tx 3 11:08 03/05 DuoNeb Neb Tx 3 mL given. Given by the respiratory Given mL (NOW x1); therapist. Allergies verified and confirmed 5 rights. Information 11:08 03/05/2024 (Sched: q10m X3) 3 reviewed with patient. Verbalizes understanding. - 11:09 Saud Morelos yahir Morelos Scanned Solu-MEDROL IVP 10:15 03/05 Solu-MEDROL IVP 125 mg given via Site# 1. Allergies Given 125 mg (NOW x1) verified and confirmed 5 rights. IV patency established. IV site 10:15 03/05/2024 checked: no pain, redness, or swelling. IV flushed thoroughly Adele Weber R.N. pre-medication administration. IVP given by nurse. Information Scanned reviewed with patient. - 10:16 Adele Weber R.N. 1 of 2 Trans Router Medication Ordered Medication Administration Date/Time Levaquin IVPB 15:06 03/05 Levaquin IVPB Premix 750 mg started at 100 mL/hr Started Premix 750 mg at via Site# 1. - 15:11 Murali Arnett R.N. 15:06 03/05/2024 100 mL/hr (NOW x1) Murali Arnett R.N. 15:22 03/05 Medication Continued: at the rate of 100 mL/hr. 80 mL Scanned remaining in bag. IV patency established. IV site checked: no pain, redness, or swelling. - 15:27 Murali Arnett R.N. 2 of 2 Normal [facility] ED NURSES CLINICAL NOTEon ED NURSES CLINICAL NOTE Nurse Narrative Nurse Clinical Narrative [address] [place] [address] [id number] 03/05/2024 Patient: BASSEM YEE Sex: Male : 1945 Age: 78y Disposition: Observation to Med/Surg Disposition Decision Time: 14:48 03/05/2024 Departure Time: 15:25 03/05/2024 TRIAGE Arrived by private vehicle. Historian: patient. Primary physician referred the patient. Triage time: 09:32 03/05/2024. Acuity: LEVEL 3. Chief Complaint: SHORTNESS OF BREATH. Onset. (about 10 days). The patient has had a cough and wheezing. Treatment HUMANITIES DEPARTMENT CHAIR: Seen within the last 48 hours in a medical facility; treatment- antibiotic and steroid. SEPSIS SCREEN: NEGATIVE. SIRS criteria negative. No possible sources of infection. -- 09:43 03/05/24 EDT Navi Deleon R.N. 09:41 03/05/24. BP: 182/100 MAP: 127. HR: 70. RR: 28. O2 saturation: 93% on room air. Temperature: 97.3 F (oral). Pain level now 07/21. -- 09:41 03/05/24 JEFFERY Deleon R.N. Measurements: 09:42 03/05/24 Wt: 63.0 kg, Ht/Henrique: 69.0 in, BMI: 20.53 -- 09:42 03/05/24 JEFFERY Deleon R.N. Medications: MUCUS RELIEF MAX 1200MG TAB -- 09:37 03/05/24 CHRISTYT Navi Deleon R.N. 1 of 5 Nurse Narrative Symbicort 160 mcg-4.5 mcg/actuation HFA aerosol inhaler -- 09:37 03/05/24 JEFFERY Deleon R.N. azelastine 0.05 % eye drops -- 09:37 03/05/24 JEFFERY Deleon R.N. azithromycin 250 mg tablet -- 09:37 03/05/24 JEFFERY Deleon R.N. Robafen DM Cough 10 mg-100 mg/5 mL oral liquid -- 09:37 03/05/24 JEFFERY Deleon R.N. prednisone 20 mg tablet -- 09:37 03/05/24 JEFFERY Deleon R.N.Updated through eRx -- 15:16 03/05/24 JEFFERY Deleon R.N. pravastatin oral: 1 tablet or capsule once a day . -- 09:38 03/05/24 JEFFERY Deleon R.N. prednisone 20 mg tablet: 2 tablet once a day. -- 15:16 03/05/24 JEFFERY Deleon R.N. Allergies: sulfa -- 09:37 03/05/24 JEFFERY Deleon R.N. Problems: COPD - Chronic Obstructive Pulmonary Disease -- 09:37 03/05/24 JEFFERY Deleon R.N. Emphysema -- 09:37 03/05/24 CHRISTYT Navi Deleon R.N. Chronic lymphoid leukemia, disease -- 09:37 03/05/24 JEFFERY Deleon R.N. ADDITIONAL SURGERIES: Repair of tricuspid valve -- 09:37 03/05/24 JEFFERY Deleon R.N. Replacement of aortic valve -- 09:37 03/05/24 JEFFERY Deleon R.N. Replacement of mitral valve -- 09:37 03/05/24 JEFFERY Deleon R.N. History 09:32 03/05/24. SOCIAL HX: Never smoker. No alcohol use or drug use. The patient has not traveled outside the [place] Infectious disease exposure: No infectious disease exposure. ABUSE ASSESSMENT: The patient answered yes to the question(s) Do you feel safe in your home? and no to the question(s) Are you afraid to go home?. SELF HARM ASSESSMENT: Self harm assessment was performed. The patient answered no to the question(s) Have you recently felt down, depressed, or hopeless? and Do you have thoughts of harming or killing yourself?. 2 of 5 Nurse Narrative FALL RISK ASSESSMENT: Fall risk assessment completed. No risk factors identified. -- 09:43 03/05/24 JEFFERY Deleon R.N. Interventions 09:32 03/05/24. Identification band and allergy band on patient. Advanced care plan discussed with patient. Patient does not have advanced directive. -- 09:43 03/05/24 CHRISTYT Navi Deleon R.N. PHYSICAL ASSESSMENT 09:50 03/05/24. GENERAL / NEURO / PSYCH: Alert. Oriented X 4. Appears in no acute distress. HEENT: Mucous membranes are pink. RESPIRATORY: Mild respiratory distress. Respirations not labored. Cough productive of scant amounts of sputum. Chest nontender. Decreased breath sounds posteriorly and in the bases bilaterally; decreased breath sounds in the right mid-lung posteriorly and upper lung posteriorly; decreased breath sounds in the left mid-lung posteriorly and in the bases bilaterally and upper lung posteriorly. Inspiratory bilateral wheezes present. No retractions, rhonchi, nasal flaring or crackles. CVS: Normal sinus rhythm noted. Capillary refill less than 2 seconds. SKIN: Skin is warm and dry. Normal skin turgor. -- 10:42 03/05/24 EDT Adele Weber R.N. NURSING PROGRESS NOTES 09:33 03/05/24. 12-LEAD EKG: EKG time: (09:33 03/05/2024). 12-Lead EKG was performed by me and shown to the ED physician. -- 09:47 03/05/24 EDT Bernie Urias 09:40 03/05/24. Site #1 started via IV in the right antecubital space with an 18g angiocath with aseptic technique and good blood return; 1 attempt. Blood drawn: rainbow set and mcgovern tube(s) and cultures x 1. Saline lock flushed with 5 mL saline. -- 09:44 03/05/24 EDT Adele Weber R.N. 09:54 03/05/24. Blood samples drawn. (swabs obtained). Portable chest x-ray completed. (at bedside). -- 10:29 03/05/24 EDT Adele Weber R.N. 10:02 03/05/24. Side rails up x 1. Bed placed in lowest position. Brakes of bed on. -- 10:02 03/05/24 EDT Adele Potts (more content not included)... Normal [facility] ED ORDER SHEET (CPOE ONLY)on 03-05-2024 ED ORDER SHEET (CPOE ONLY) Order Sheet Order Sheet [address] [place] [address] [id number] 03/05/2024 Patient: BASSEM YEE Sex: Male : 1945 Age: 78y MEASUREMENTS: Wt: 63.0 kg, Ht/Henrique: 69.0 in, BMI: 20.53 ALLERGIES: sulfa MEDICATION/IV/DRIP/FLUID ORDERS Order Description Priority Entered Acknowledged Completed Buffy Neb Tx3 mL (NOW x1); 09:54 03/05/2024 10:00 (Sched: q10m X3) 1 of 3 Temo Weller D.O. 03/05/2024 Saud Baer Neb Tx3 mL (NOW x1); 09:54 03/05/2024 10:57 (Sched: q10m X3) 2 of 3 Temo Weller D.O. 03/05/2024 Saud Baer Neb Tx3 mL (NOW x1); 09:54 03/05/2024 11:09 (Sched: q10m X3) 3 of 3 Temo Weller D.O. 03/05/2024 Saud Morelos Solu-MEDROL [id number] mg 09:03/05/2024 10:14 10:16 (NOW x1) Temo Weller D.O. 03/05/2024 03/05/2024 Adele Aguero R.N. RIsh Levaquin IVPB [id number] mg at 14:08 03/05/2024 15:05 15:11 100 mL/hr (NOW x1) Temo Weller D.O. 03/05/2024 03/05/2024 Murali Mayen, 1 of 4 Order Sheet R.N. R.N. Reason for ordering with alerts: Benefits outweigh risks --14:08 03/05/2024 Temo Weller D.O. LAB ORDERS Order Description Priority Entered Acknowledged Collected Completed EKG - ED 09:46 03/05/2024 09:51 03/05/2024 Adele Nguyen D.O. R.N. CBC w Diff 09:46 03/05/2024 09:51 03/05/2024 Adele Nguyen D.O. R.Bebo CMP 09:46 03/05/2024 09:51 03/05/2024 Adele Nguyen D.O. R.Jyoti. Arterial Blood Gas 09:46 03/05/2024 09:51 03/05/2024 Analysis Adele Nguyen D.O. R.N. RSV 09:46 03/05/2024 09:51 03/05/2024 Adele Nguyen D.O. RThelma. Flu Swab (Influenzae 09:46 03/05/2024 09:51 03/05/2024 AAg) Adele Nguyen D.O. RIsh Rapid COVID (SARS) 09:46 03/05/2024 09:51 03/05/2024 ANTIGEN TEST Adele Nguyen D.O. RIsh 2 of 4 Order Sheet BNP 09:46 03/05/2024 09:51 03/05/2024 Adele Nguyen D.O. RThelma. D-Dimer 09:46 03/05/2024 09:51 03/05/2024 Adele Nguyen D.O. RBrittanyNBrittany Blood Culture Stat 12:21 03/05/2024 12:22 03/05/2024 [Bowie] # 1 Stat Murali Mayen R.N. R.N. Verbal Order, Auth by: Temo Weller D.O. Read back and verified Blood Culture Stat 12:21 03/05/2024 12:22 03/05/2024 [Bowie] # 2 Stat Murali Mayen R.N. RBrittanyNBrittany Verbal Order, Auth by: Temo eWller D.O. Read back and verified DIAGNOSTIC STUDY ORDERS Order Description Priority Entered Acknowledged Completed Chest 1V 09:46 03/05/2024 09:51 Temo Weller D.O. 03/05/2024 Adele Weber R.N. Reason for Study: Shortness of Breath 3 of [address] Chest PE Study Stat Stat 12:08 03/05/2024 12:22 Teom Weller D.O. 03/05/2024 Murali Arnett R.N. Reason for Study: Pulmonary Disease STAFF ORDERS Order Description Priority Entered Acknowledged Collected Completed Greens Keeper 09:46 03/05/2024 09:51 03/05/2024 Adele Nguyen D.O. R.Jyoti. IV Saline Lock 09:46 03/05/2024 09:51 03/05/2024 Adele Nguyen D.O. R.N. Aerosol Rx ER X1 09:46 03/05/2024 09:51 03/05/2024 Adele Nguyen D.O. R.N. ABG- Notify RT 09:46 03/05/2024 09:51 03/05/2024 Adele Nguyen D.O. R.NBrittany [Electronically signed by Temo Weller D.O. (03/05/2024 09:54 EDT)] [Electronically signed by Temo Weller D.O. (03/05/2024 20:41 EDT)] 4 of 4 Normal [facility] ED PHYS CODING ABST SUMMARYo n 03-05-2024 ED PHYS CODING ABST SUMMARY Coding Summary Coding Summary [address] [address] [place] [address] [id number] 03/05/2024 Patient: BASSEM YEE Sex: Male : 1945 Age: 78y ICD-10 Codes J18.0: Bronchopneumonia, unspecified organism R09.02: Hypoxemia J18.9: Pneumonia, unspecified organism J44.1: Chronic obstructive pulmonary disease with (acute) exacerbation CPT Codes EKG (CPT: 76920) This is a partial abstract of information documented in the full record. Blending Operator must use independent judgment in selecting codes. CPT copyright 2022 [employer]. All Rights Reserved. 1 of 1 Normal [facility] ED PHYSICIAN CLINICAL REPORT on 03-05-2024 ED PHYSICIAN CLINICAL REPORT Narrative Physician Clinical Narrative [address] [place] [address] [id number] 03/05/2024 Patient: BASSEM YEE Sex: Male : 1945 Age: 78y Disposition: Observation to Med/Surg Disposition Decision Time: 14:48 03/05/2024 Departure Time: 15:25 03/05/2024 Measurements Wt: 63.0 kg, Ht/Henrique: 69.0 in, BMI: 20.53 Initial Vital Sign Measured Time BP MAP HR RR O2Sat ETCO2 Temp Pain GCS RTS 09:41 03/05/2024 182/100 127 70 28 93% RA 97.3 F 3 Time Seen: 09:46 03/05/2024. Arrived- By private vehicle. Historian- patient. HISTORY OF PRESENT ILLNESS Chief Complaint: DYSPNEA and HISTORY OF CHRONIC OBSTRUCTIVE PULMONARY DISEASE. (10 days ago, was here in the ED 2 days ago, sent from his doctor's office). Is still present. The dyspnea is described as moderate and is worsened by exertion and cough and is improved by rest. The patient has had sputum production, a cough, wheezing and dyspnea on exertion. No fever, sweating episodes, chills or chest pain or discomfort. No calf pain, foot swelling, tingling, numbness or palpitations. REVIEW OF SYSTEMS GI: No nausea, vomiting or abdominal pain. NEUROLOGICAL: No headache. NOSE: No nasal discharge. The patient has had sinus drainage. EYES: No eye irritation. THROAT: No sore throat. SKIN: No skin rash. ENDO/HEME/LYMPH: No enlarged lymph nodes. CONSTITUTIONAL: The patient has not had weight loss. No muscle aches. : No difficulty with urination or excessive urination. 1 of 17 Narrative PAST HISTORY Hypertension. 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 prednisone 20 mg tablet: 2 tablet once a day. Robafen DM Cough 10 mg-100 mg/5 mL oral liquid Symbicort 160 mcg-4.5 mcg/actuation HFA aerosol inhaler Allergies: sulfa SOCIAL HISTORY No alcohol use or drug use. No recent travel. ADDITIONAL NOTES The nursing notes have been reviewed with agreement regarding the chief complaint, PMH and patient allergies. PHYSICAL EXAM 2 of 17 Narrative Vital Signs: Have been reviewed. Appearance: Alert. Patient in mild distress. (He is tachpneic with some mild conversational dyspnea). Eyes: Pupils equal, round and reactive to light. Eyes normal inspection. ENT: Nose normal. Pharynx normal. Uvula midline. Neck: Normal inspection. No jugular venous distention. Neck supple. CVS: Normal heart rate and rhythm. Heart sounds normal. Pulses normal. Respiratory: Moderate respiratory distress with tachypnea. Speaks short phrases. No accessory muscle use, retractions, cyanosis, hypoventilation or weak respiratory efforts. No decreased mental status. Prolonged expirations. Breath sounds abnormal. Decreased air movement. Painless inspiration. Wheezing present. No stridor or crackles. Abdomen: Soft and nontender. No abdominal tenderness or guarding. Back: Normal inspection. Skin: Skin warm. Normal skin color. No rash. Extremities: Extremities exhibit normal ROM. No lower extremity edema. Neuro: Oriented X 3. LABS, X-RAYS, AND EKG 12-LEAD EKG: EKG time: 09:33 03/05/2024. No acute process. No acute ischemia. Normal sinus rhythm. Rate: 76. Normal P waves. Normal KENNEDI. Normal QRS complex. Normal axis. Normal QT. Non-specific ST segment / T wave abnormalities. Laboratory Tests: CBC + DIFF Final NAOMIE: 03/05/2024 09:40:00 EDT MsgRcvd: 03/05/2024 10:43 EDT Lab Test Result Reference Status Received Comments 03/05/2024 10:43 CBC-COMPLETE CBC + DIFF Final EDT BLOOD COUNT { CALLED TO ED 88.5 x 10/UL 03/05/2024 10:43 AT 1008 WBC Above upper panic 4.5 - 10.8 Final EDT { READ BACK BY limits SE TO CWB 3 Narrative 03/05/2024 10:43 RBC 5.57 x 10/UL 4.50 - 6.00 Final EDT 03/05/2024 10:43 HEMOGLOBIN 15.5 g/dl 13.0 - 17.5 Final EDT 03/05/2024 10:43 HEMATOCRIT 48.3 % 40.0 - 52.0 Final EDT 03/05/2024 10:43 MCV 87 fl 81 - 98 Final EDT 03/05/2024 10:43 MCH 28 pg 27 - 33 Final EDT 03/05/2024 10:43 MCHC 32 X10 3 32 - 36 Final EDT 03/05/2024 10:43 RDW/CV 15.2 % 12.0 - 15.6 Final EDT 03/05/2024 10:43 PLATELET 241 x10/UL 150 - 450 Final EDT 03/05/2024 10:43 AUTOMATED MPV 7.3 fl 6.4 - 10.5 Final EDT DIFFERENTIAL 11.1 % 03/05/2024 10:43 NEUT % 46.0 - 76.0 Final Below low normal EDT 74.9 % 03/05/2024 10:43 LYMPH % 20.0 - 45.0 Final Above high normal EDT 12.9 % 03/05/2024 10:43 MONOS % 0.0 - 10.0 Final Above high normal EDT 02/12 (more content not included)... Normal [facility] ED SUPER BILLon 03-05-2024 ED SUPER BILL [address] [address] [id number] 03/05/2024 Patient: BASSEM YEE Sex: Male : 1945 Age: 78y Facility Professional Category Item Description Code Code Quantity Fee Total Nurse/E/M EMERGENCY 815389 1 $0.00 $0.00 DEPT VISIT HIGH SEVERITYFUNCJ (63953-93) Nurse/IV/IM/Infusions Drip/IVPB initial 712739 1 $0.00 $0.00 (99657) Nurse/IV/IM/Infusions IVP additional 204905 1 $0.00 $0.00 push (12262) Nurse/Procedures Respiratory 175040 1 $0.00 $0.00 therapy - inhalation (95391) Grand $0.00 Total Providers Temo Weller D.O. Chief Complaint DYSPNEA and HISTORY OF CHRONIC OBSTRUCTIVE PULMONARY DISEASE. 1 of 2 [facility] Principal Diagnosis Acute exacerbation of COPD (emphysematous, asthmatic). Bronchopneumonia with hypoxemia. ICD-10 Codes J18.0: Bronchopneumonia, unspecified organism R09.02: Hypoxemia J18.9: Pneumonia, unspecified organism J44.1: Chronic obstructive pulmonary disease with (acute) exacerbation 2 of 2 Normal [facility] ED VISIT SUMMARYon ED VISIT SUMMARY Visit Overview Visit Overview [address] [address] [id number] 03/05/2024 Patient: BASSEM YEE Sex: Male : 1945 Age: 78y 03/05/2024 08:42 PM EDT ED Arrival:09:30 03/05/2024 EDT Status: Recent Travel:no Language:eng Adv Directive:No Isolation Status: Ethnicity:N Fall Risk:no risk Infectious Disease Exposure:no Measurements:5'9 / 175.3 Self-Harm Status:risk Sepsis Screen:negative cm 139.0 lb / 63.0 kg Chief Complaint:SHORTNESS OF BREATH and (about 10 days) ALLERGIES sulfa HOME MEDICATIONS azelastine 0.05 % eye drops azithromycin 250 mg tablet MUCUS RELIEF MAX 1200MG TAB pravastatin oral: 1 tablet or capsule once a day . prednisone 20 mg tablet: 2 tablet once a day. 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 Saline lock. INTAKE OUTPUT REASSESMENT (most recent) 11:19 03/05/24. Post assessment. O2 saturation- 92 room air. Heart rate: (76 regular). Respiratory rate: (20 regular). Breath sounds within normal limits. Wheezes in the right and left mid-lung anteriorly and upper lung anteriorly. 2 of 3 Visit Overview VITAL SIGNS First Vitals Last Vitals Temp 09:41 03/05/24 97.3 F Temp 15:24 03/05/24 98.9 F BP 09:41 03/05/24 182/100 BP 15:24 03/05/24 134/79 HR 09:41 03/05/24 70 HR 15:24 03/05/24 93 RR 09:41 03/05/24 28 RR 15:24 03/05/24 22 O2 Sat 09:41 03/05/24 93% RA O2 Sat 15:24 03/05/24 93% Pain 09:41 03/05/24 3 Pain 15:24 03/05/24 0 ETCO2 09:41 03/05/24 ETCO2 15:24 03/05/24 GCS 09:41 03/05/24 GCS 15:24 03/05/24 RTS 09:41 03/05/24 RTS 15:24 10/23/24 PROCEDURES NURSING INTERVENTIONS Respiratory therapy LABS / STUDIES LABS / STUDIES ORDERED Arterial Blood Gas Analysis Blood Culture [Meena] # 1 Blood Culture [Meena] # 2 BNP CBC w Diff Chest 1V CMP CT Chest PE Study D-Dimer EKG - ED Flu Swab (Influenzae AAg) Rapid COVID (SARS) ANTIGEN TEST RSV CLINICAL IMPRESSION ACUTE EXACERBATION OF COPD (EMPHYSEMATOUS, ASTHMATIC) BRONCHOPNEUMONIA WITH HYPOXEMIA 3 of 3 Normal [facility] HEMOGLOBIN A1C (POM)on 03-05 Glucose [Mass/Vol] 122.6 mg/dL High 0.0 - 0.0 [facility] Comment on above: Result Comment: BLDo HEMOGLOBIN A1C REFERENCE RANGESBLDo Suggested Diagnosis HbA1c(%) HbA1C (mmol/mol Diabetic >/=6.5 >/=48 Prediabetes 5.7 - 6.4 39 - 47 Normal <5.7 <39 Performed By: #### 2 [id number] #### [facility],[address] [place] [address] HbA1c (Bld) [Mass fraction] 5.9 % Normal 0.0 - 6.5 [facility] Comment on above: Performed By: #### 2 [id number] #### [facility],[address] [place] [address] INFLUENZA VIRUS RAPID A/Bon 03-05-2024 INFLUENZA VIRUS RAPID A/B INFLUENZA A NEGATIVE INFLUENZA B NEGATIVE INTERNAL NEG QC PASS INTERNAL POS QC PASS EXTERNAL QC DONE? YES SEND TO IC? NO A NEGATIVE TEST RESULT DOES NOT EXCLUDE INFECTION WITH INFLUENZA A OR B. THEREFORE, THE RESULTS OBTAINED FROM THIS FLU TEST SHOULD BE USED IN CONJUCTION WITH CLINICAL FINDINGS TO MAKE AN ACCURATE DIAGNOSIS. A POSITIVE RESULT DOES NOT RULE OUT CO-INFECTIONS WITH OTHER PATHOGENS OR IDENTIFY ANY SPECIFIC INFLUENZA A VIRUS SUBTYPE.CO-INFECTION WITH INFLUENZA A AND B IS RARE. IT IS RECOMMENDED THAT DUAL POSITIVE RESULTS BE CONFIRMED BY VIRAL CULTURE OR AN FDA-CLEARED INFLUENZA A AND B MOLECULAR ASSAY. INDIVIDUALS WHO HAVE RECEIVED NASALLY ADMINISTERED INFLUENZA A VACCINE MAY TEST POSITIVE IN COMMERCIALLY AVAILABLE INFLUENZA RAPID DIAGNOSTIC TESTS FOR UP TO THREE DAYS. RESULT CRITICAL? NO Normal [facility] Comment on above: Performed By: #### 2 81647 #### [facility],[address] [place] [address] LIPID PROFILEon 03-05-2024 Cholesterol [Mass/Vol] 187 mg/dL Normal 0 - 240 [facility] Comment on above: Performed By: #### 2 72799 #### [facility],[address] [place] [address] Cholesterol in HDL [Mass/Vol] 63 mg/dL High 40 - 60 [facility] Comment on above: Performed By: #### 2 30896 #### [facility],[address] [place] [address] 17769 Cholesterol in LDL [Mass/Vol] 110 mg/dL Normal 0 - 129 [facility] Comment on above: Performed By: #### 2 19648 #### [facility],[address] [place] [address] Cholesterol.total/Chol esterol in HDL [Mass ratio] 3.0 {ratio} Normal 0.0 - 5.0 [facility] Comment on above: Performed By: #### 2 99042 #### [facility],[address] [place] [address]216 Lipid 1996 panel Normal [facility] Comment on above: Result Comment: LIPI D PROFILE Performed By: #### 2 26850 #### [facility],[address] [place] [address] Triglyceride [Mass/Vol] 72 mg/dL Normal 0 - 150 [facility] Comment on above: Performed By: #### 2 37129 #### [facility],[address] [place] [address] NT-proBNPon 03-05-2024 Natriuretic peptide B (Bld) [Mass/Vol] 217 pg/mL Normal 0 - 450 [facility] Comment on above: Performed By: #### 2 63066 #### [facility],[address] [place] [address]277 RESPIRATORY PANEL PCR (POM)o n 10-23-2024 ADENOVIRUS Negative Normal NORMAL: NEGATIVE [facility] Comment on above: Performed By: #### 2 65739 #### [facility],[address] [place] [address] 16849 B. HOLMESII Negative Normal NORMAL: NEGATIVE [facility] Comment on above: Performed By: #### 2 06626 #### [facility],[address] [place] [address] 56089 B. PARAPERTUSSIS Negative Normal NORMAL: NEGATIVE [facility] Comment on above: Performed By: #### 2 20631 #### [facility],[address] [place] [address] 87453 B. PERTUSSIS Negative Normal NORMAL: NEGATIVE [facility] Comment on above: Performed By: #### 2 97358 #### [facility],[address] [place] [address] ERROR DUE TO TECH ERROR Normal [facility] Comment on above: Performed By: #### 2 88486 #### [facility],[address] [place] [address] 87137 H. METAPNEUMOVIRUS Negative Normal NORMAL: NEGATIVE [facility] Comment on above: Performed By: #### 2 88543 #### [facility],[address] [place] [address] Influenza A Negative Normal NORMAL: NEGATIVE [facility] Comment on above: Performed By: #### 2 24039 #### [facility],[address] [place] [address] INFLUENZA A H1 Negative Normal NORMAL: NEGATIVE [facility] Comment on above: Performed By: #### 2 47632 #### [facility],[address] [place] [address]201 INFLUENZA A H3 Negative Normal NORMAL: NEGATIVE [facility] Comment on above: Performed By: #### 2 68348 #### [facility],[address] [place] [address] 71343 Influenza B Negative Normal NORMAL: NEGATIVE [facility] Comment on above: Performed By: #### 2 41892 #### [facility],[address] [place] [address],[place] [address] PARAINFLUENZA 1 Negative Normal NORMAL: NEGATIVE [facility] Comment on above: Performed By: #### 2 24270 #### [facility],[address] [place] [address],[place] [address] PARAINFLUENZA 2 Negative Normal NORMAL: NEGATIVE [facility] Comment on above: Performed By: #### 2 14427 #### [facility],[address] [place] [address] PARAINFLUENZA 3 Negative Normal NORMAL: NEGATIVE [facility] Comment on above: Performed By: #### 2 20307 #### [facility],[address] [place] [address] PARAINFLUENZA 4 Negative Normal NORMAL: NEGATIVE [facility] Comment on above: Performed By: #### 2 24732 #### [facility],[address] [place] [address] RESPIRATORY PANEL PCR (POM) Normal [facility] Comment on above: Result Comment: CORRECTED REPORT RESPIRATORY PANEL FLEX PCR Performed By: #### 2 39448 #### [facility],[address] [place] [address] [place] [address] RHINOVIRUS Negative Normal NORMAL: NEGATIVE [facility] Comment on above: Performed By: #### 2 70156 #### [facility],[address] [place] [address],[place] [address] RSV A Negative Normal NORMAL: NEGATIVE [facility] Comment on above: Performed By: #### 2 58828 #### [facility],[address] [place] [address] [place] [address] RSV B Negative Normal NORMAL: NEGATIVE [facility] Comment on above: Performed By: #### 2 08339 #### [facility],[address] [place] [address] SEND TO ? YES Normal [facility] Comment on above: Result Comment: THIS ASSAY HAS BEEN VALIDATED IN THE [facility] FOR USE WITH NASOPHARYNGEAL SPECIMENS IN [facility]. INTERPRETIVE DATA THE [employer] RESPIRATORY PATHOGENS FLEX NUCLEIC ACID TEST (RP FLEX) IS A MULTIPLEXED QUALITATIVE TEST INTENDED FOR THE SIMULTANEOUS DETECTION AND IDENTIFICATION OF MULTIPLE VIRAL AND BACTERIAL NUCLEIC ACIDS IN NASOPHARYNGEAL SWABS (RECORDS SECTION SUPERVISOR) OBTAINED FROM INDIVIDUALS SUSPECTED OF RESPIRATORY TRACT INFECTION. THE TEST IS PERFORMED ON THE AUTOMATED [employer] SYSTEM UTILIZING REVERSE BLENDER SNUFF (RT), POLYMERASE CHAIN REACTION (PCR), AND MICROARRAY HYBRIDIZATION TO DETECT GENE SEQUENCES OF THE FOLLOWING ORGANISM TYPES AND SUBTYPES: ADENOVIRUS, HUMAN METAPNEUMOVIRUS,INFLUENZA A,INFLUENZA A (SUBTYPE H1), INFLUENZA A (SUBTYPE H3), INFLUENZA B,PARAINFLUENZA 1,PARAINFLUENZA 2, PARAINFLUENZA 3, PARAINFLUENZA 4, RESPIRATORY SYNCYTIAL VIRUS A,RESPIRATORY SYNCYTIAL VIRUS B, RHINOVIRUS,BORDETELLA PARAPERTUSSIS/BRONCHISEPTICA,BORDETELLA HOLMESII,AND BORDETELLA PERTUSSIS. DETECTING AND IDENTIFYING SPECIFIC VIRAL AND BACTERIAL NUCLEIC ACIDS FROM INDIVIDUALS EXHIBITING SIGNS AND SYMPTOMS OF RESPIRATORY INFECTION AIDS IN THE DIAGNOSIS OF RESPIRATORY INFECTION, IF USED IN CONJUNCTION WITH OTHER CLINICAL AND LABORATORY FINDINGS. THE RESULTS OF THIS TEST SHOULD NOT BE USED THE SOLE BASIS FOR DIAGNOSIS, TREATMENT, OR PATIENT MANAGEMENT DECISIONS. NEGATIVE RESULTS IN THE PRESENCE OF A RESPIRATORY ILLNESS DO NOT PRECLUDE RESPIRATORY INFECTION AND MAY BE DUE TO INFECTION WITH PATHOGENS THAT ARE NOT DETECTED BY THIS TEST OR LOWER RESPIRATORY TRACT INFECTION THAT IS NOT DETECTED BY AN RECORDS SECTION SUPERVISOR SPECIMEN. CONVERSELY, POSITIVE RESULTS DO NOT RULE-OUT INFECTION OR CO-INFECTION WITH ORGANISMS NOT DETECTED BY RP FLEX. THE AGENT(S) DETECTED MAY NOT BE THE DEFINITE CAUSE OF DISEASE. THE USE OF ADDITIONAL LABORATORY TESTING AND CLINICAL PRESENTATION MAY BE NECESSARY TO ESTABLISH A FINAL DIAGNOSIS OF RESPIRATORY INFECTION. CLINICAL EVALUATION INDICATES A LOWER SENSITIVITY SPECIFIC TO RP FLEX FOR THE DETECTION OF RHINOVIRUS. IF INFECTION WITH RHINOVIRUS IS SUSPECTED, NEGATIVE SAMPLES SHOULD BE CONFIRMED USING AN ALTERNATIVE METHOD. PERFORMANCE CHARACTERISTICS FOR INFLUENZA A WERE ESTABLISHED WHEN INFLUENZA A/H1 (2008 PANDEMIC) AND A/H3 WERE THE PREDOMINANT INFLUENZA A VIRUSES IN CIRCULATION. RP FLEX MAY NOT DETECT NOVEL INFLUENZA A STRAINS. IF INFECTION WITH A NOVEL INFLUENZA A VIRUS IS SUSPECTED BASED ON CURRENT CLINICAL AND EPIDEMIOLOGICAL SCREENING CRITERIA RECOMMENDED BY PUBLIC HEALTH AUTHORITIES, SPECIMENS SHOULD BE COLLECTED WITH APPROPRIATE INFECTION CONTROL PRECAUTIONS USED SPECIFICALLY FOR NOVEL VIRULENT INFLUENZA VIRUSES AND SENT TO APPROPRIATE HEALTH AUTHORITIES FOR TESTING. VIRAL CULTURE SHOULD NOT BE ATTEMPTED IN THESE CASES UNLESS A BIOSAFETY LEVEL (BSL) 3+ FACILITY IS AVAILABLE TO RECEIVE AND CULTURE SPECIMENS. FOLLOWING RESULTS REPORTED IN ERROR SEND TO ? NO <-- *Previously reported in error 03/05/[id number].AEL. M Performed By: #### 2 [id number] #### [place] [address] RSVon 03-05-2024 RSV RSV NEGATIVE INTERNAL NEG QC PASS INTERNAL POS QC PASS EXTERNAL QC DONE? YES Normal [facility] Comment on above: Performed By: #### 2 97319 #### [facility],[address] [place] [address] URINALYSISon 03-05-2024 Bilirubin Ql (U) Negative Normal NORMAL: NEGATIVE [facility] Comment on above: Performed By: #### 2 03601 #### [facility],[address] [place] [address] 75984 Clarity (U) clear Normal NORMAL: CLEAR [facility] Comment on above: Performed By: #### 2 30650 #### [facility],[address] [place] [address] 47355 Color (U) yellow Normal NORMAL: YELLOW [facility] Comment on above: Performed By: #### 2 50563 #### [facility],[address] [place] [address] 00957 Glucose Ql (U) NORM Normal NORMAL: NORMAL [facility] Comment on above: Performed By: #### 2 22606 #### [facility],[address] [place], [place] [id number] Hemoglobin Ql (U) Negative Normal NORMAL: NEGATIVE [facility] Comment on above: Performed By: #### 2 46360 #### [facility],[address] [place] [address] 55555 Ketone Negative Normal NORMAL: NEGATIVE [facility] Comment on above: Performed By: #### 2 49686 #### [facility],[address] [place] [address] 22959 Leukocytes Negative Normal NORMAL: NEGATIVE [facility] Comment on above: Performed By: #### 2 03065 #### [facility],[address] [place], [place] [phone] Nitrite Ql (U) Negative Normal NORMAL: NEGATIVE [facility] Comment on above: Performed By: #### 2 89796 #### [facility],[address] [place] [address] pH (U) 6 [pH] Normal NORMAL: 5.0-8.0 [facility] Comment on above: Performed By: #### 2 48839 #### [facility],[address] [place] [address] 24354 Protein Ql (U) 30 Abnormal NORMAL: NEGATIVE [facility] Comment on above: Performed By: #### 2 38440 #### [facility],[address] [place], [place] [id number] Sp [place] 1.020 Normal NORMAL: 1.010-1.030 [facility] Comment on above: Performed By: #### 2 77465 #### [facility],[address] [place], [place] [phone] Specimen Type R Normal [facility] Comment on above: Performed By: #### 2 16779 #### [facility],[address] [place], [place] [phone] Urinalysis dipstick W Reflex Microscopic panel (U) NOT INDICATED Normal [facility] Comment on above: Performed By: #### 2 43224 #### [facility],[address] [place] [address] 07158 Urobilinog NORM Normal NORMAL: NORMAL [facility] Comment on above: Performed By: #### 2 80155 #### [facility],[address] [place] [address] 98898 ACETYLCHOLINE REC BINDING AB on 12-28-2023 ACETYLCHOLINE BINDING, QUAL Negative Normal Negative [facility] Comment on above: Order Comment: Speci men Type: BLOOD SPECIMEN Ordering Facility: [facility] Address: [address] [place] [address] Result Comment: Anti -acetylcholine receptor binding antibody test is used as an aid in diagnosis of myasthenia gravis. A negative result cannot exclude myasthenia gravis. Clinical correlation is required. Performed By: #### A CHRAB #### [facility] CLIA [id number] [address] [place] [address] [place] Acetylcholine receptor binding Ab (S) [Moles/Vol] <0.02 Normal <0.21 [facility] Comment on above: Order Comment: Speci men Type: BLOOD SPECIMEN Ordering Facility: [facility] Address: [address] [place] [address] Performed By: #### A CHRAB #### [facility] CLIA [id number] [address] [place] [address] [place] Blood eosinophils/100 leukoc ytesOrdered By: Clement Lewis on 07-18-2023 Eosinophils/100 WBC (Bld) 3 % 0-5 [facility] Blood leukocytes other/100 l eukocytesOrdered By: Clement Lewis on 07-18-2023 WBC other/100 WBC (Bld) 4 % [facility] Blood lymphocytes/100 leukoc ytesOrdered By: Clement Lewis on 07-18-2023 Lymphocytes/100 WBC (Bld) 82 % Critically high 19-41 [facility] Blood monocytes/100 leukocyt esOrdered By: Clement Lewis on 07-18-2023 Monocytes/100 WBC (Bld) 3 % 0-10 [facility] Blood segmented neutrophils/ 100 leukocytesOrdered By: Clement Lewis on 07-18-2023 Segmented neutrophils/100 WBC (Bld) 8 % Low 47-70 [facility] Total cell countOrdered By: Clement Concepcionzaria on 07-18-2023 Cells counted Molgen (Bld/Tiss) [#] 100 MANUAL DIFF [facility] Absolute lymphocyte countOrd ered By: Clement Concepcionzaria on 01-03-2023 Lymphocytes Auto (Unsp spec) [#/Vol] 33.88 10*3/uL 0.83-4.51 [facility] Basophil percentageOrdered B y: Clement Concepcionzaria on 01-03-2023 Basophils/100 WBC (Bld) 0.5 % 0-1 [facility] Bilirubin [Mass/Vol] 1.10 mg/dL 0.20-1.00 [facility] Comment on above: For patients on eltr ombopag therapy, use of Dimension [place]man TBIL is not recommended. Chloride [Moles/Vol] 112 mmol/L 98-107 [facility] Eosinophils/100 WBC (Bld) 1.5 % 0-5 [facility] Glucose [Mass/Vol] 96 mg/dL 74-106 [facility] LDH [Catalytic activity/Vol] 247 U/L 87-241 [facility] Neutrophils (Bld) [#/Vol] 4.3 10*3/uL 2.0-7.7 [facility] Neutrophils/100 WBC (Bld) 10.6 % 47-70 [facility] Potassium [Moles/Vol] 4.8 mmol/L 3.5-5.1 [facility] Protein [Mass/Vol] 5.8 g/dL 6.4-8.2 [facility] Sodium [Moles/Vol] 143 mmol/L 136-145 [facility] WBC (Bld) [#/Vol] 39.9 10*3/uL 4.4-11.0 [facility] Comment on above: CRITICAL VALUE VERIF IED. CALLED TO BENJI GARCIA (ONC)01/03/23 1343 Robin Schultz.RESULTS READ BACK BY SAME. Blood erythrocytes count (nu mber/volume)Ordered By: Clement Joshua on 01-03-2023 RBC (Bld) [#/Vol] 5.03 10*6/uL 4.6-6.2 [facility] Blood hemoglobin measurement (mass/volume)Ordered By: Clement Lewis on 01-03-2023 Hemoglobin (Bld) [Mass/Vol] 14.2 g/dL 13.0-16.5 [facility] Blood lymphocytes/100 leukoc ytesOrdered By: Clement Lewis on 01-03-2023 Lymphocytes/100 WBC (Bld) 84.9 % 19-41 [facility] Blood manual differential co mment interpretation (narrative result)Ordered By: Clement Lewis on 01-03-2023 Manual differential comment Ty (Bld) [Interp] SCANNED [facility] Comment on above: LYMPHOCYTOSIS NOTED Blood monocytes/100 leukocyt esOrdered By: Clement Lewis on 01-03-2023 Monocytes/100 WBC (Bld) 2.3 % 0-10 [facility] Blood platelet mean volumeOr dered By: Clement Lewis on 01-03-2023 Platelet mean volume (Bld) [Entitic vol] 9.1 fL 6.2-12.0 [facility] Determination of erythrocyte mean corpuscular volume (MCV)Ordered By: Clement Lewis on 01-03-2023 MCV (RBC) [Entitic vol] 90.1 fL 80-94 [facility] Hematocrit Auto (Bld) [Volum e fraction]Ordered By: Clement Lewis on 01-03-2023 Hematocrit (Bld) [Volume fraction] 45.3 % 40-54 [facility] Laboratory - Chemistry and C hemistry - challengeOrdered By: Clement Lewis on 01-03-2023 ALP [Catalytic activity/Vol] 46 U/L 45-117 [facility] ALT [Catalytic activity/Vol] 22 U/L 16-61 [facility] CO2 [Moles/Vol] 27.0 mmol/L 21.0-32.0 [facility] Globulin (S) [Mass/Vol] 2.3 g/dL 2.2-4.2 [facility] Urea nitrogen/Creatinine [Mass ratio] 13.1 mg/mg 10-20 [facility] Laboratory - Hematology and Cell countsOrdered By: Clement Lewis on 01-03-2023 Erythrocyte distribution width (RBC) [Entitic vol] 45.2 fL 35.1-43.9 [facility] Erythrocyte distribution width (RBC) [Ratio] 13.8 % 11.6-14.6 [facility] Immature granulocytes/100 WBC (Bld) 0.200 % 0.0-0.9 [facility] Comment on above: IG% - Immature Granu locytes (promyelocytes, myelocytes and metamyelocytes) > 1% indicates that a LEFT SHIFT is Present. MCH (RBC) [Entitic mass] 28.2 pg 27.0-32.0 [facility] Nucleated RBC/100 WBC (Bld) [Ratio] 0 % 0-5 [facility] MCHC Auto (RBC) [Mass/Vol]Or dered By: Clement Lewis on 01-03-2023 MCHC (RBC) [Mass/Vol] 31.3 g/dL 32-36 [facility] No Panel InformationOrdered By: Clement Lewis on 01-03-2023 Atypical Lymphocytes 1+ % [facility] Estimated GFR (MDRD) Amer 74 mL/min >60 [facility] Comment on above: GFR Calc Estimated GFR (MDRD) Non-Af Amer 62 mL/min >60 [facility] Comment on above: Non- GFR Calc Prostate Specific Antigen Total 6.13 ng/mL High 0.0-4.0 [facility] Comment on above: This test was perfor med using the TPSA assay method [facility]. Values obtained with differentassay methods cannot be used interchangably.When changing PSA assays in the course of monitoring apatient, additional sequential testing should be carriedout to confirm baseline values. Reactive Lymphocytes 1+ [facility] Platelets bldOrdered By: Sekou Lewis on 01-03-2023 Platelets (Bld) [#/Vol] 151 10*3/uL 150-450 [facility] Review by pathologistOrdered By: Clement Lewis on 01-03-2023 Pathologist review Ty (Unsp spec) [Interp] Reviewed [facility] Comment on above: Previous reported re sult: September foll Edited by: TERESE on 01/04/23:1513Absolute lymphocytosis suggestive of low grade lympho-proliferative disorder.Clinical correlation is necessary. Benito Merino M.D. 01/04/23Pathologist comment added AMENDED REPORT 01/04/23 1513 PATH REV previously reported as: May foll Serum or plasma albumin lukas urement (mass/volume)Ordered By: Clement Lewis on 01-03-2023 Albumin [Mass/Vol] 3.5 g/dL 3.2-5.0 [facility] Serum or plasma albumin/glob ulin mass ratioOrdered By: Clement Concepcion on 01-03-2023 Albumin/Globulin [Mass ratio] 1.5 {ratio} 0.9-2.4 [facility] Serum or plasma calcium lukas urement (mass/volume)Ordered By: Clement Concepcion on 01-03-2023 Calcium [Mass/Vol] 8.9 mg/dL 8.5-10.1 [facility] Serum or plasma creatinine m easurement (mass/volume)Ordered By: Clement Concepcion on 01-03-2023 Creatinine [Mass/Vol] 1.22 mg/dL 0.70-1.30 [facility] Comment on above: The validity of the calculated GFR & GFRAA in patients over 70 years has not been determined. Clinical correlation is essential. Serum or plasma urea nitroge n measurement (mass/volume)Ordered By: [facility] on 01-03-2023 Urea nitrogen [Mass/Vol] 16 mg/dL 7-18 [facility] Serum or plasma uric acid me asurement (mass/volume)Ordered By: Clement [facility] on 01-03-2023 Urate [Mass/Vol] 5.6 mg/dL 3.5-7.2 [facility] Comment on above: The drugs N-Acetylcy steine and Metamizole may falsely depress this assay. Smudge cell detectionOrdered By: Clement Lewis on 01-03-2023 Smudge cells LM Ql (Bld) 2+ [facility] Thin prep Papanicolaou smear with manual screeningOrdered By: Clement Lewis on 01-03-2023 Thin prep Papanicolaou smear with manual screening 24 U/L 15-37 [facility] Thin prep Papanicolaou smear with manual screening 4 5-15 [facility] Basophil percentageOrdered B y: Clement Lewis on 12-25-2022 Creatinine [Mass/Vol] 1.3 mg/dL 0.70-1.30 [facility] Laboratory - Chemistry and C hemistry - challengeOrdered By: Clement Lewis on 12-25-2022 GFR/1.73 sq M.predicted among non-blacks MDRD (S/P/Bld) [Vol rate/Area] 58.0000 mL/min/{1.73_m2} >60 [facility] Absolute lymphocyte countOrd ered By: Clement Lweis on 10-02-2022 Lymphocytes Auto (Unsp spec) [#/Vol] 40.24 10*3/uL 0.83-4.51 [facility] Basophil percentageOrdered B y: Clement Lewis on 10-02-2022 Basophils/100 WBC (Bld) 0.5 % 0-1 [facility] Bilirubin [Mass/Vol] 0.70 mg/dL 0.20-1.00 [facility] Comment on above: For patients on eltr ombopag therapy, use of Dimension Sidman TBIL is not recommended. Chloride [Moles/Vol] 114 mmol/L 98-107 [facility] Eosinophils/100 WBC (Bld) 1.0 % 0-5 [facility] Glucose [Mass/Vol] 120 mg/dL 74-106 [facility] Comment on above: Fasting Glucose resu lt from 100 to 125 mg/dL suggests IMPAIRED HOMEOSTASIS per A.D.A. criteria. LDH [Catalytic activity/Vol] 246 U/L 87-241 [facility] Neutrophils (Bld) [#/Vol] 5.0 10*3/uL 2.0-7.7 [facility] Neutrophils/100 WBC (Bld) 10.7 % 47-70 [facility] Potassium [Moles/Vol] 4.6 mmol/L 3.5-5.1 [facility] Protein [Mass/Vol] 5.9 g/dL 6.4-8.2 [facility] Sodium [Moles/Vol] 146 mmol/L 136-145 [facility] WBC (Bld) [#/Vol] 47.0 10*3/uL 4.4-11.0 [facility] Comment on above: CRITICAL VALUE VERIF IED. CALLED TO [facility] [id number]/22/23 1551 Gallo Bernard.RESULTS READ BACK BY SAME . Blood erythrocytes count (nu mber/volume)Ordered By: Clement Lewis on 10-02-2022 RBC (Bld) [#/Vol] 5.16 10*6/uL 4.6-6.2 [facility] Blood hemoglobin measurement (mass/volume)Ordered By: Clement Lewis on 10-02-2022 Hemoglobin (Bld) [Mass/Vol] 14.3 g/dL 13.0-16.5 [facility] Blood lymphocytes/100 leukoc ytesOrdered By: Clement Lewis on 10-02-2022 Lymphocytes/100 WBC (Bld) 85.6 % 19-41 [facility] Blood manual differential co mment interpretation (narrative result)Ordered By: Clement Lewis on 10-02-2022 Manual differential comment Ty (Bld) [Interp] SEE COMMENTS [facility] Comment on above: LYMPHOCYTOSIS NOTEDL EUKOCYTOSIS NOTED Blood monocytes/100 leukocyt esOrdered By: Clement Lewis on 10-02-2022 Monocytes/100 WBC (Bld) 2.0 % 0-10 [facility] Blood platelet adequacy dete ction by light microscopyOrdered By: Clement Lewis on 10-02-2022 Platelets LM Ql (Bld) ADEQUATE ADEQ [facility] Blood platelet mean volumeOr dered By: Clement Lewis on 10-02-2022 Platelet mean volume (Bld) [Entitic vol] 9.8 fL 6.2-12.0 [facility] Determination of erythrocyte mean corpuscular volume (MCV)Ordered By: Clement Lewis on 10-02-2022 MCV (RBC) [Entitic vol] 90.1 fL 80-94 [facility] Hematocrit Auto (Bld) [Volum e fraction]Ordered By: Clement Concepcion on 10-02-2022 Hematocrit (Bld) [Volume fraction] 46.5 % 40-54 [facility] Laboratory - Chemistry and C hemistry - challengeOrdered By: Clement Lewis on 10-02-2022 ALP [Catalytic activity/Vol] 48 U/L 45-117 [facility] ALT [Catalytic activity/Vol] 23 U/L 16-61 [facility] CO2 [Moles/Vol] 26.0 mmol/L 21.0-32.0 [facility] Globulin (S) [Mass/Vol] 2.4 g/dL 2.2-4.2 [facility] Urea nitrogen/Creatinine [Mass ratio] 14.3 mg/mg 10-20 [facility] Laboratory - Hematology and Cell countsOrdered By: Clement Lewis on 10-02-2022 Anisocytosis Ql (Bld) RARE [facility] Erythrocyte distribution width (RBC) [Entitic vol] 43.9 fL 35.1-43.9 [facility] Erythrocyte distribution width (RBC) [Ratio] 13.4 % 11.6-14.6 [facility] Immature granulocytes/100 WBC (Bld) 0.200 % 0.0-0.9 [facility] Comment on above: IG% - Immature Granu locytes (promyelocytes, myelocytes and metamyelocytes) > 1% indicates that a LEFT SHIFT is Present. MCH (RBC) [Entitic mass] 27.7 pg 27.0-32.0 [facility] Nucleated RBC/100 WBC (Bld) [Ratio] 0.2 % 0-5 [facility] MCHC Auto (RBC) [Mass/Vol]Or dered By: Clement Lewis on 10-02-2022 MCHC (RBC) [Mass/Vol] 30.8 g/dL 32-36 [facility] Macrocytes detectionOrdered By: Clement Lewis on 10-02-2022 Macrocytes Ql (Bld) [facility] No Panel InformationOrdered By: Clement Lewis on 10-02-2022 Atypical Lymphocytes 3+ % [facility] Estimated GFR (MDRD) Amer 72 mL/min >60 [facility] Comment on above: GFR Calc Estimated GFR (MDRD) Non-Af Amer 59 mL/min >60 [facility] Comment on above: Non- GFR Calc Reactive Lymphocytes 2+ [facility] Platelets bldOrdered By: Sekou Lewis on 10-02-2022 Platelets (Bld) [#/Vol] 192 10*3/uL 150-450 [facility] RBC morphologyOrdered By: Sandy Lewis on 10-02-2022 RBC morphology finding Nom (Bld) N CHROM NORMAL NORM C&C [facility] Review by pathologistOrdered By: Clement Lewis on 10-02-2022 Pathologist review Ty (Unsp spec) [Interp] Reviewed [facility] Comment on above: Previous reported re sult: September dee dee Edited by: RGOOD on 10/03/22:1250Absolute lymphocytosis suggestive of low grade lympho-proliferative disorder.Clinical correlation is necessary. Benito Merino M.D. 10/03/22 AMENDED REPORT 10/03/22 1250 PATH REV previously reported as: September dee dee Serum or plasma albumin lukas urement (mass/volume)Ordered By: Clement Lewis on 10-02-2022 Albumin [Mass/Vol] 3.5 g/dL 3.2-5.0 [facility] Serum or plasma albumin/glob ulin mass ratioOrdered By: Clement Lewis on 10-02-2022 Albumin/Globulin [Mass ratio] 1.5 {ratio} 0.9-2.4 [facility] Serum or plasma calcium lukas urement (mass/volume)Ordered By: Clement Lewis on 10-02-2022 Calcium [Mass/Vol] 8.7 mg/dL 8.5-10.1 [facility] Serum or plasma creatinine m easurement (mass/volume)Ordered By: Clement Lewis on 10-02-2022 Creatinine [Mass/Vol] 1.26 mg/dL 0.70-1.30 [facility] Comment on above: The validity of the calculated GFR & GFRAA in patients over 70 years has not been determined. Clinical correlation is essential. Serum or plasma urea nitroge n measurement (mass/volume)Ordered By: Clement Lewis on 10-02-2022 Urea nitrogen [Mass/Vol] 18 mg/dL 7-18 [facility] Thin prep Papanicolaou smear with manual screeningOrdered By: Clement Lewis on 10-02-2022 Thin prep Papanicolaou smear with manual screening 30 U/L 15-37 [facility] Thin prep Papanicolaou smear with manual screening 6 5-15 [facility] Smudge cell detectionOrdered By: Clement Lewis on 08-15-2022 Smudge cells LM Ql (Bld) 1+ [facility] No Panel Informationon 04-25 Prostate Specific Antigen Total 8.46 ng/mL 0.0-4.0 [facility] Work Phone: Comment on above: This test was perfor med using the TPSA assay method for [employer] chemistry system. Values obtained with differentassay methods cannot be used interchangably.When changing PSA assays in the course of monitoring apatient, additional sequential testing should be carriedout to confirm baseline values. Absolute lymphocyte counton 01-17-2022 Lymphocytes Auto (Unsp spec) [#/Vol] 28.64 10*3/uL 0.83-4.51 [facility] Work Phone: Basophil percentageon 2021 Basophils/100 WBC (Bld) 0.6 % 0-1 [facility] Work Phone: Bilirubin [Mass/Vol] 1.10 mg/dL 0.20-1.00 [facility] Work Phone: Comment on above: For patients on eltr ombopag therapy, use of Dimension Sidman TBIL is not recommended. Chloride [Moles/Vol] 111 mmol/L 98-107 [facility] Work Phone: Eosinophils/100 WBC (Bld) 1.7 % 0-5 [facility] Work Phone: Glucose [Mass/Vol] 91 mg/dL 74-106 [facility] Work Phone: Neutrophils (Bld) [#/Vol] 4.5 10*3/uL 2.0-7.7 [facility] Work Phone: Neutrophils/100 WBC (Bld) 12.8 % 47-70 [facility] Work Phone: Potassium [Moles/Vol] 4.8 mmol/L 3.5-5.1 [facility] Work Phone: Protein [Mass/Vol] 6.1 g/dL 6.4-8.2 [facility] Work Phone: Sodium [Moles/Vol] 143 mmol/L 136-145 [facility] Work Phone: WBC (Bld) [#/Vol] 34.9 10*3/uL 4.4-11.0 [facility] Work Phone: Blood erythrocytes count (nu mber/volume)on 01-17-2022 RBC (Bld) [#/Vol] 5.27 10*6/uL 4.6-6.2 [facility] Work Phone: Blood hemoglobin measurement (mass/volume)on 01-17-2022 Hemoglobin (Bld) [Mass/Vol] 15.0 g/dL 13.0-16.5 [facility] Work Phone: Blood lymphocytes/100 leukoc yteson 01-17-2022 Lymphocytes/100 WBC (Bld) 82.1 % 19-41 [facility] Work Phone: Blood manual differential co mment interpretation (narrative result)on 01-17-2022 Manual differential comment Ty (Bld) [Interp] COMMENT [facility] Work Phone: Comment on above: LYMPHOCYTOSIS.LEUKOC YTOSIS. Blood monocytes/100 leukocyt eson 01-17-2022 Monocytes/100 WBC (Bld) 2.6 % 0-10 [facility] Work Phone: Blood platelet mean volumeon 01-17-2022 Platelet mean volume (Bld) [Entitic vol] 9.6 fL 6.2-12.0 [facility] Work Phone: Determination of erythrocyte mean corpuscular volume (MCV)on 01-17-2022 MCV (RBC) [Entitic vol] 90.5 fL 80-94 [facility] Work Phone: Hematocrit Auto (Bld) [Volum e fraction]on 01-17-2022 Hematocrit (Bld) [Volume fraction] 47.7 % 40-54 [facility] Work Phone: Laboratory - Chemistry and C hemistry - challengeon 01-17-2022 ALP [Catalytic activity/Vol] 49 U/L 45-117 [facility] Work Phone: ALT [Catalytic activity/Vol] 17 U/L 16-61 [facility] Work Phone: CO2 [Moles/Vol] 28.0 mmol/L 21.0-32.0 [facility] Work Phone: Globulin (S) [Mass/Vol] 2.5 g/dL 2.2-4.2 [facility] Work Phone: [phone] Urea nitrogen/Creatinine [Mass ratio] 14.5 mg/mg 10-20 [facility] Work Phone: Laboratory - Hematology and Cell countson 01-17-2022 Erythrocyte distribution width (RBC) [Entitic vol] 44.0 fL 35.1-43.9 [facility] Work Phone: Erythrocyte distribution width (RBC) [Ratio] 13.3 % 11.6-14.6 [facility] Work Phone: Immature granulocytes/100 WBC (Bld) 0.200 % 0.0-0.9 [facility] Work Phone: Comment on above: IG% - Immature Granu locytes (promyelocytes, myelocytes and metamyelocytes) > 1% indicates that a LEFT SHIFT is Present. MCH (RBC) [Entitic mass] 28.5 pg 27.0-32.0 [facility] Work Phone: Nucleated RBC/100 WBC (Bld) [Ratio] 0.1 % 0-5 [facility] Work Phone: MCHC Auto (RBC) [Mass/Vol]on 01-17-2022 MCHC (RBC) [Mass/Vol] 31.4 g/dL 32-36 [facility] Work Phone: No Panel Informationon 01-17 Estimated GFR (MDRD) Amer 78 mL/min >60 [facility] Work Phone: Comment on above: GFR Calc Estimated GFR (MDRD) Non-Af Amer 65 mL/min >60 [facility] Work Phone: Comment on above: Non- GFR Calc Platelets bldon 01-17-2022 Platelets (Bld) [#/Vol] 156 10*3/uL 150-450 [facility] Work Phone: Review by pathologiston Pathologist review Ty (Unsp spec) [Interp] Reviewed [facility] Work Phone: Comment on above: Previous reported re sult: Antoinette funez Edited by: RGOMIKA on 01/18/22:1547Absolute lymphocytosis suggestive of low grade lympho-proliferative disorder.Clinical correlation is necessary. Benito Merino M.D. 01/18/22 AMENDED REPORT 01/18/22 1547 PATH REV previously reported as: Antoinette funez Serum or plasma albumin lukas urement (mass/volume)on 01-17-2022 Albumin [Mass/Vol] 3.6 g/dL 3.2-5.0 [facility] Work Phone: Serum or plasma albumin/glob ulin mass ratioon 01-17-2022 Albumin/Globulin [Mass ratio] 1.4 {ratio} 0.9-2.4 [facility] Work Phone: Serum or plasma calcium lukas urement (mass/volume)on 01-17-2022 Calcium [Mass/Vol] 9.0 mg/dL 8.5-10.1 [facility] Work Phone: Serum or plasma creatinine m easurement (mass/volume)on 01-17-2022 Creatinine [Mass/Vol] 1.17 mg/dL 0.70-1.30 [facility] Work Phone: Comment on above: The validity of the calculated GFR & GFRAA in patients over 70 years has not been determined. Clinical correlation is essential. Serum or plasma urea nitroge n measurement (mass/volume)on 01-17-2022 Urea nitrogen [Mass/Vol] 17 mg/dL 7-18 [facility] Work Phone: Thin prep Papanicolaou smear with manual screeningon 01-17-2022 Thin prep Papanicolaou smear with manual screening 16 U/L 15-37 [facility] Work Phone: Thin prep Papanicolaou smear with manual screening 4 5-15 [facility] Work Phone: Thin prep Papanicolaou smear with manual screening 219 U/L 87-241 [facility] Work Phone: Serum cebf-4-gjljnsdawcvqv m easurement (mass/volume)on 07-18-2021 Qcbg-6-Ifnmujpuvflto [Mass/Vol] 2.1 ug/mL 0.6-2.4 [facility] Comment on above: Siemens Immulite 200 0 Immunochemiluminometric assay (ICMA)Values obtained with different assay methods or kits cannotbe used interchangeably. Results cannot be interpreted asabsolute evidence of the presence or absence of malignantdisease.Performed at: [facility] [id number] Director: Franko Medina MD, Phone: [phone] Smudge cell detectionon Smudge cells LM Ql (Bld) 1+ [facility] Work Phone: Blood or tissue coagulation factor II targeted mutation analysis by iMem[employer]on 01-03-2021 F2 gene targeted mutation analysis [employer] Nom (Bld/Tiss) Comment . [facility] Comment on above: NEGATIVENo mutation identified.Comment:A point mutation ([id number]) in the factor II (prothrombin)gene is the second most common cause of inheritedthrombophilia. The incidence of this mutation in the [place] population is about 2% and in the AfricanAmerican population it is approximately 0.5%. This mutationis rare in the and population. Beingheterozygous for a prothrombin mutation increases the riskfor developing venous thrombosis about 2 to 3 times abovethe general population risk. Being homozygous for theprothrombin gene mutation increases the relative risk forvenous thrombosis further, although it is not yet known howmuch further the risk is increased. In women heterozygousfor the prothrombin gene mutation, the use of estrogencontaining oral contraceptives increases the relative riskof venous thrombosis about 16 times and the risk ofdeveloping cerebral thrombosis is also significantlyincreased. In the prothrombin gene mutationincreases risk for venous thrombosis and may increaserisk for stillbirth, placental abruption, pre-eclampsia andfetal growth restriction. If the patient possesses two ormore congenital or acquired thrombophilic risk factors, therisk for thrombosis may rise to more than the sum of therisk ratios for the individual mutations. This assaydetects only the prothrombin [id number] mutation and doesnot measure genetic abnormalities elsewhere in thegenome. Other thrombotic risk factors may be pursuedthrough systematic clinical laboratory analysis. Thesefactors include the R506Q ([place]) mutation in the Factor Vgene, plasma homocysteine levels, as well as testing fordeficiencies of antithrombin III, protein C and protein S.Genetic Counselors are available for health care providersto discuss results at [phone] ([phone]).Methodology:DNA analysis of the Factor II gene was performed by PCRamplification followed by restriction analysis. Thediagnostic sensitivity is >99% for both. All the tests mustbe combined with clinical information for the most accurateinterpretation. Molecular-based testing is highly accurate,but as in any laboratory test, diagnostic errors may occur.This test was developed and its performance characteristicsdetermined by [employer]. It has not been cleared or approvedby the Food and Drug Administration.Poort SR, et al. Blood. 1996; 88:2912-4808.Marsha JACOB. Circulation. 2004; 110:e15-e18.Varghese I, et al. Arterioscler Thromb Vasc Biol. 1999;19:700-703.Jose Hussein, PhD, Jose Daniel Tavares, PhD, FACMGW. Yoly Martin, PhD, Marbella Srivastava, PhD, Faustino Rodriguez, PhD, Nicholas Shields, PhD, FACMGPerformed at: [facility] [id number] [place], [place] [id number] Director: Dax Kumari [facility], Phone: [phone] Blood platelet adequacy dete ction by light microscopyon 01-03-2021 Platelets LM Ql (Bld) ADEQUATE ADEQ [facility] Work Phone: No Panel Informationon 01-03 Miscellaneous Test See comment [facility] Comment on above: TEST RESULT UNITS RE F INTERVALChromosome, Leukemia/LymphomaSpecimen Type Comment:BLOODCells Counted 20Cells Analyzed 20Cells Karyotyped 3GTG Band Resolution Achieved 400Cytogenetic Result Comment: 46,XY,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 In addition, the addition ofunknown genetic material was detected at the distal terminusof the short arm of the other chromosome 11 homologue. The 11q deletion is commonly reported in CLL/SLL andin MDS. 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 Additional chromosome abnormalities are oftenpresent in CLL patients with deletion of 11q.. FISH analysis using the JOEL gene probe mapping [id number](test code 176389) may be considered for follow-upstudies.. Results should be interpreted within the context of afull pathology evaluation, including flow cytometry,microarray analysis, and molecular genetic testing tofurther stratify prognosis.Director Review: Comment: XAVI WOODY, PHD TESTING PERFORMED AT [facility]. ORIGINAL REPORT ON FILE IN LAB CONTAINS ADDITIONAL TEST SITE INFORMATION. RBC morphologyon 01-03-2021 RBC morphology finding Nom (Bld) NORM C+C NORMAL NORM C&C [facility] Work Phone: Serum or plasma uric acid me asurement (mass/volume)on 01-03-2021 Urate [Mass/Vol] 5.7 mg/dL 3.5-7.2 [facility] Comment on above: The drugs N-Acetylcy steine and Metamizole may falsely depress this assay. Basic Metabolic Panelon 05-14 Anion gap [Moles/Vol] 9 Normal [facility] Comment on above: Performed By: #### L ACT3, HEMOG, LFT3, BMP3, PT, PCAL #### [address] [address] [place], [place] Calcium [Mass/Vol] 8.4 mg/dL Normal 8.4-10.4 [facility] Comment on above: Performed By: #### L ACT3, HEMOG, LFT3, BMP3, PT, PCAL #### [address] [place], [place] CO2 [Moles/Vol] 20 mmol/L Low 22-30 [facility] Comment on above: Performed By: #### L ACT3, HEMOG, LFT3, BMP3, PT, PCAL #### [address] [address] [place], [place] Glucose [Mass/Vol] 62 mg/dL Low 70-100 [facility] Comment on above: Performed By: #### L ACT3, HEMOG, LFT3, BMP3, PT, PCAL #### [address] [address] [place], [place] Urea nitrogen [Mass/Vol] 19 mg/dL Normal 7-20 [facility] Comment on above: Performed By: #### L ACT3, HEMOG, LFT3, BMP3, PT, PCAL #### [address] [place], [place] Creatinine [Mass/Vol] 1.26 mg/dL High 0.52-1.25 [facility] Comment on above: Performed By: #### L ACT3, HEMOG, LFT3, BMP3, PT, PCAL #### [address] [place], [place] GFR/1.73 sq M predicted among blacks MDRD (S/P/Bld) [Vol rate/Area] mL/min/{1.73_m2} Normal >60 [facility] Comment on above: Performed By: #### L ACT3, HEMOG, LFT3, BMP3, PT, PCAL #### [facility] [address] [place], [place] GFR/1.73 sq M predicted among non-blacks MDRD (S/P/Bld) [Vol rate/Area] 56.3 mL/min/{1.73_m2} Normal >60 [facility] Comment on above: Result Comment: Sour ce- MDRD equation with creatinine calibration to IDMS(NKDEP) eGFR not recommended for drug dose adjustment Performed By: #### L ACT3, HEMOG, LFT3, BMP3, PT, PCAL #### [address] [address] [place], [place] Potassium [Moles/Vol] 4.5 mmol/L Normal 3.5-5.1 [facility] Comment on above: Performed By: #### L ACT3, HEMOG, LFT3, BMP3, PT, PCAL #### [address] [address] [place], [place] Sodium [Moles/Vol] 139 mmol/L Normal 135-145 [facility] Comment on above: Performed By: #### L ACT3, HEMOG, LFT3, BMP3, PT, PCAL #### [address] [place], [place] Chloride [Moles/Vol] 110 mmol/L High 98-107 [facility] Comment on above: Performed By: #### L ACT3, HEMOG, LFT3, BMP3, PT, PCAL #### [address] [place], [place] Basic Metabolic PanelOrdered By: Amber Cobb on 05-24-2019 Anion gap [Moles/Vol] 9 mmol/L [facility] Work Phone: Calcium [Mass/Vol] 8.4 mg/dL 8.4 - 10. 4 mg/dL [facility] Work Phone: Chloride [Moles/Vol] 110 mmol/L High 98 - 10 7 mmol/L [facility] Work Phone: CO2 [Moles/Vol] 20 mmol/L Low 22 - 30 mmol/L [facility] Work Phone: [phone] Creatinine [Mass/Vol] 1.26 mg/dL High 0.52 - 1.25 mg/dL [facility] Work Phone: EGFR IF NonAfrican Ethiopian 56.3 mL/min >60 [facility] Work Phone: Comment on above: Source- MDRD equatio n with creatinine calibration to IDMS(NKDEP) eGFR not recommended for drug dose adjustment GFR/1.73 sq M.predicted among blacks MDRD (S/P/Bld) [Vol rate/Area] mL/min/{1.73_m2} >60 mL/min [facility] Work Phone: Glucose [Mass/Vol] 62 mg/dL Low 70 - 100 mg/dL [facility] Work Phone: Interpretation and review of laboratory results Abnormal [facility] Work Phone: Potassium [Moles/Vol] 4.5 mmol/L 3.5 - 5.1 mmol/L [facility] Work Phone: Sodium [Moles/Vol] 139 mmol/L 135 - 145 mmol/L [facility] Work Phone: Urea nitrogen [Mass/Vol] 19 mg/dL 7 - 20 mg/dL [facility] Work Phone: Test Performed by [facility], [address] [place] [phone] [facility] Work Phone: CBCOrdered By: Amber pandey on 05-24-2019 Erythrocyte distribution width (RBC) [Ratio] 14.3 % 11.5 - 14.5 % [facility] Work Phone: Hematocrit (Bld) [Volume fraction] 41.2 % 40 - 52 % [facility] Work Phone: Hemoglobin (Bld) [Mass/Vol] 13.3 g/dL 13 - 18 g/dL [facility] Work Phone: Interpretation and review of laboratory results Abnormal [facility] Work Phone: MCH (RBC) [Entitic mass] 27.9 pg 26 - 34 pg [facility] Work Phone: [phone] MCHC 32.3 % 32 - 36 % [facility] Work Phone: [phone] MCV (RBC) [Entitic vol] 86.3 fL 80 - 98 fL [facility] Work Phone: [phone] Platelet mean volume (Bld) [Entitic vol] 8.4 fL 7.4 - 10.4 fL [facility] Work Phone: [phone] Platelets (Bld) [#/Vol] 142 10*3/uL 140 - 440 10*3/uL [facility] Work Phone: [phone] RBC (Bld) [#/Vol] 4.77 10*6/uL 4.4 - 5.9 10*6/uL [facility] Work Phone: [phone] WBC (Bld) [#/Vol] 20.6 10*3/uL High 3.6 - 10.7 10*3/uL [facility] Work Phone: Test Performed by [facility], [address] [place] [phone] [facility] Work Phone: [phone] Hemogramon 05-24-2019 Erythrocyte distribution width (RBC) [Ratio] 14.3 % Normal 11.5-14.5 [facility] Comment on above: Performed By: #### L ACT3, HEMOG, LFT3, BMP3, PT, PCAL #### [facility] [address] [place] [address] Hematocrit (Bld) [Volume fraction] 41.2 % Normal 40.0-52.0 [facility] Comment on above: Performed By: #### L ACT3, HEMOG, LFT3, BMP3, PT, PCAL #### [facility] [address] Hemoglobin (Bld) [Mass/Vol] 13.3 g/dL Normal 13.0-18.0 [facility] Comment on above: Performed By: #### L ACT3, HEMOG, LFT3, BMP3, PT, PCAL #### [facility] [address] [place] [phone] MCH (RBC) [Entitic mass] 27.9 pg Normal 26.0-34.0 [facility] Comment on above: Performed By: #### L ACT3, HEMOG, LFT3, BMP3, PT, PCAL #### [address] MCHC (RBC) [Mass/Vol] 32.3 % Normal 32.0-36.0 [facility] Comment on above: Performed By: #### L ACT3, HEMOG, LFT3, BMP3, PT, PCAL #### [address] MCV (RBC) [Entitic vol] 86.3 fL Normal 80.0-98.0 [facility] Comment on above: Performed By: #### L ACT3, HEMOG, LFT3, BMP3, PT, PCAL #### [address] Platelet mean volume (Bld) [Entitic vol] 8.4 fL Normal 7.4-10.4 [facility] Comment on above: Performed By: #### L ACT3, HEMOG, LFT3, BMP3, PT, PCAL #### [address] Platelets (Bld) [#/Vol] 142 10*3/uL Normal 140-440 [facility] Comment on above: Performed By: #### L ACT3, HEMOG, LFT3, BMP3, PT, PCAL #### [address] RBC (Bld) [#/Vol] 4.77 10*6/uL Normal 4.40-5.90 [facility] Comment on above: Performed By: #### L ACT3, HEMOG, LFT3, BMP3, PT, PCAL #### [address] WBC (Bld) [#/Vol] 20.6 10*3/uL High 3.6-10.7 [facility] Comment on above: Performed By: #### L ACT3, HEMOG, LFT3, BMP3, PT, PCAL #### [address] [address] [address] [place], [place] Basic Metabolic Panelon --2019 Calcium [Mass/Vol] 8.3 mg/dL Low 8.4-10.4 [facility] Comment on above: Performed By: #### L ACT3, HEMOG, LFT3, BMP3, PT, PCAL #### [address] [address] [address] Glucose [Mass/Vol] 103 mg/dL High 70-100 [facility] Comment on above: Performed By: #### L ACT3, HEMOG, LFT3, BMP3, PT, PCAL #### [address] [address] [place], [place] Anion gap [Moles/Vol] 4 Normal [facility] Comment on above: Performed By: #### L ACT3, HEMOG, LFT3, BMP3, PT, PCAL #### [address] [address] [address] [place], [place] CO2 [Moles/Vol] 22 mmol/L Normal 22-30 [facility] Comment on above: Performed By: #### L ACT3, HEMOG, LFT3, BMP3, PT, PCAL #### [address] [address] [place] Creatinine [Mass/Vol] 1.22 mg/dL Normal 0.52-1.25 [facility] Comment on above: Performed By: #### L ACT3, HEMOG, LFT3, BMP3, PT, PCAL #### [address] [address] [place], [place] GFR/1.73 sq M predicted among blacks MDRD (S/P/Bld) [Vol rate/Area] mL/min/{1.73_m2} Normal >60 [facility] Comment on above: Performed By: #### L ACT3, HEMOG, LFT3, BMP3, PT, PCAL #### [address] [address] [place], [place] GFR/1.73 sq M predicted among non-blacks MDRD (S/P/Bld) [Vol rate/Area] 58.5 mL/min/{1.73_m2} Normal >60 [facility] Comment on above: Result Comment: Sour ce- MDRD equation with creatinine calibration to IDMS(NKDEP) eGFR not recommended for drug dose adjustment Performed By: #### L ACT3, HEMOG, LFT3, BMP3, PT, PCAL #### [address] [address] [place], [place] Urea nitrogen [Mass/Vol] 21 mg/dL High 7-20 [facility] Comment on above: Performed By: #### L ACT3, HEMOG, LFT3, BMP3, PT, PCAL #### [address] [address] [place] Chloride [Moles/Vol] 112 mmol/L High 98-107 [facility] Comment on above: Performed By: #### L ACT3, HEMOG, LFT3, BMP3, PT, PCAL #### [address] [address] [place], [place] Potassium [Moles/Vol] 4.2 mmol/L Normal 3.5-5.1 [facility] Comment on above: Performed By: #### L ACT3, HEMOG, LFT3, BMP3, PT, PCAL #### [address] [place] Sodium [Moles/Vol] 139 mmol/L Normal 135-145 [facility] Comment on above: Performed By: #### L ACT3, HEMOG, LFT3, BMP3, PT, PCAL #### [address] [address] [place], [place] Basic Metabolic Panel w/ Ref mamta to MGOrdered By: Nataliya Eid on 05-23-2019 Anion gap [Moles/Vol] 4 mmol/L [facility] Work Phone: Calcium [Mass/Vol] 8.3 mg/dL Low 8.4 - 10. 4 mg/dL [facility] Work Phone: Chloride [Moles/Vol] 112 mmol/L High 98 - 10 7 mmol/L [facility] Work Phone: [phone] CO2 [Moles/Vol] 22 mmol/L 22 - 30 mmol/L [facility] Work Phone: Creatinine [Mass/Vol] 1.22 mg/dL 0.52 - 1.25 mg/dL [facility] Work Phone: EGFR IF NonAfrican Ethiopian 58.5 mL/min >60 [facility] Work Phone: Comment on above: Source- MDRD equatio n with creatinine calibration to IDMS(NKDEP) eGFR not recommended for drug dose adjustment GFR/1.73 sq M.predicted among blacks MDRD (S/P/Bld) [Vol rate/Area] mL/min/{1.73_m2} >60 mL/min [facility] Work Phone: Glucose [Mass/Vol] 103 mg/dL High 70 - 100 mg/dL [facility] Work Phone: Interpretation and review of laboratory results Abnormal [facility] Work Phone: Potassium [Moles/Vol] 4.2 mmol/L 3.5 - 5.1 mmol/L [facility] Work Phone: Sodium [Moles/Vol] 139 mmol/L 135 - 145 mmol/L [facility] Work Phone: Urea nitrogen [Mass/Vol] 21 mg/dL High 7 - 20 mg/dL [facility] Work Phone: Test Performed by [address] [address] [facility] Work Phone: CBCOrdered By: Nataliya Eid on 05-23-2019 Erythrocyte distribution width (RBC) [Ratio] 13.7 % 11.5 - 14.5 % [facility] Work Phone: Hematocrit (Bld) [Volume fraction] 40.4 % 40 - 52 % [facility] Work Phone: Hemoglobin (Bld) [Mass/Vol] 13.2 g/dL 13 - 18 g/dL [facility] Work Phone: Interpretation and review of laboratory results Abnormal [facility] Work Phone: [phone] MCH (RBC) [Entitic mass] 27.8 pg 26 - 34 pg [facility] Work Phone: [phone] MCHC 32.6 % 32 - 36 % [facility] Work Phone: MCV (RBC) [Entitic vol] 85.2 fL 80 - 98 fL [facility] Work Phone: [phone] Platelet mean volume (Bld) [Entitic vol] 8.0 fL 7.4 - 10.4 fL [facility] Work Phone: [phone] Platelets (Bld) [#/Vol] 141 10*3/uL 140 - 440 10*3/uL [facility] Work Phone: [phone] RBC (Bld) [#/Vol] 4.74 10*6/uL 4.4 - 5.9 10*6/uL [facility] Work Phone: [phone] WBC (Bld) [#/Vol] 25.8 10*3/uL High 3.6 - 10.7 10*3/uL [facility] Work Phone: Test Performed by [facility], [address] [place] [phone] [facility] Work Phone: Hemogramon 05-23-2019 Erythrocyte distribution width (RBC) [Ratio] 13.7 % Normal 11.5-14.5 [facility] Comment on above: Performed By: #### L ACT3, HEMOG, LFT3, BMP3, PT, PCAL #### [facility] [address] [place] [phone] Hematocrit (Bld) [Volume fraction] 40.4 % Normal 40.0-52.0 [facility] Comment on above: Performed By: #### L ACT3, HEMOG, LFT3, BMP3, PT, PCAL #### [facility] [address] [phone] Hemoglobin (Bld) [Mass/Vol] 13.2 g/dL Normal 13.0-18.0 [facility] Comment on above: Performed By: #### L ACT3, HEMOG, LFT3, BMP3, PT, PCAL #### [address] [address] [place], [place] MCH (RBC) [Entitic mass] 27.8 pg Normal 26.0-34.0 [facility] Comment on above: Performed By: #### L ACT3, HEMOG, LFT3, BMP3, PT, PCAL #### [address] [address] [place] MCHC (RBC) [Mass/Vol] 32.6 % Normal 32.0-36.0 [facility] Comment on above: Performed By: #### L ACT3, HEMOG, LFT3, BMP3, PT, PCAL #### [address] [address] [place], [place] MCV (RBC) [Entitic vol] 85.2 fL Normal 80.0-98.0 [facility] Comment on above: Performed By: #### L ACT3, HEMOG, LFT3, BMP3, PT, PCAL #### [address] [address] [place] Platelet mean volume (Bld) [Entitic vol] 8.0 fL Normal 7.4-10.4 [facility] Comment on above: Performed By: #### L ACT3, HEMOG, LFT3, BMP3, PT, PCAL #### [address] [address] [place], [place] Platelets (Bld) [#/Vol] 141 10*3/uL Normal 140-440 [facility] Comment on above: Performed By: #### L ACT3, HEMOG, LFT3, BMP3, PT, PCAL #### [address] [address] [place], [place] RBC (Bld) [#/Vol] 4.74 10*6/uL Normal 4.40-5.90 [facility] Comment on above: Performed By: #### L ACT3, HEMOG, LFT3, BMP3, PT, PCAL #### [address] [address] [place], [place] WBC (Bld) [#/Vol] 25.8 10*3/uL High 3.6-10.7 [facility] Comment on above: Performed By: #### L ACT3, HEMOG, LFT3, BMP3, PT, PCAL #### [address] Add On Lab TestOrdered By: Jyoti Lorenzana on 05-22-2019 Add On Accepted [facility] Work Phone: Comment on above: Specimen available & acceptable for analysis. Test Performed by [facility], [facility] [place], [place] [facility] Work Phone: Add on test from HISon 05-22 Add on test from HIS Accepted Normal [facility] Comment on above: Result Comment: Spec imen available & acceptable for analysis. Performed By: #### A DDON #### [address] Basic Metabolic Panelon Calcium [Mass/Vol] 9.1 mg/dL Normal 8.4-10.4 [facility] Comment on above: Performed By: #### L ACT3, HEMOG, LFT3, BMP3, PT, PCAL #### [address] Glucose [Mass/Vol] 115 mg/dL High 70-100 [facility] Comment on above: Performed By: #### L ACT3, HEMOG, LFT3, BMP3, PT, PCAL #### [address] Urea nitrogen [Mass/Vol] 23 mg/dL High 7-20 [facility] Comment on above: Performed By: #### L ACT3, HEMOG, LFT3, BMP3, PT, PCAL #### [address] Anion gap [Moles/Vol] 9 Normal [facility] Comment on above: Performed By: #### L ACT3, HEMOG, LFT3, BMP3, PT, PCAL #### [address] CO2 [Moles/Vol] 22 mmol/L Normal 22-30 [facility] Comment on above: Performed By: #### L ACT3, HEMOG, LFT3, BMP3, PT, PCAL #### [address] Creatinine [Mass/Vol] 1.23 mg/dL Normal 0.52-1.25 [facility] Comment on above: Performed By: #### L ACT3, HEMOG, LFT3, BMP3, PT, PCAL #### [address] GFR/1.73 sq M predicted among blacks MDRD (S/P/Bld) [Vol rate/Area] mL/min/{1.73_m2} Normal >60 [facility] Comment on above: Performed By: #### L ACT3, HEMOG, LFT3, BMP3, PT, PCAL #### [address] GFR/1.73 sq M predicted among non-blacks MDRD (S/P/Bld) [Vol rate/Area] 57.9 mL/min/{1.73_m2} Normal >60 [facility] Comment on above: Result Comment: Sour ce- MDRD equation with creatinine calibration to IDMS(NKDEP) eGFR not recommended for drug dose adjustment Performed By: #### L ACT3, HEMOG, LFT3, BMP3, PT, PCAL #### [address] Chloride [Moles/Vol] 107 mmol/L Normal 98-107 [facility] Comment on above: Performed By: #### L ACT3, HEMOG, LFT3, BMP3, PT, PCAL #### [address] Potassium [Moles/Vol] 4.4 mmol/L Normal 3.5-5.1 [facility] Comment on above: Performed By: #### L ACT3, HEMOG, LFT3, BMP3, PT, PCAL #### [address] Sodium [Moles/Vol] 138 mmol/L Normal 135-145 [facility] Comment on above: Performed By: #### L ACT3, HEMOG, LFT3, BMP3, PT, PCAL #### [facility] [address] [place] [address] Basic Metabolic PanelOrdered By: Ronal Serra on 05-22-2019 Anion gap [Moles/Vol] 9 mmol/L [facility] Work Phone: [phone] Calcium [Mass/Vol] 9.1 mg/dL 8.4 - 10. 4 mg/dL [facility] Work Phone: [phone] Chloride [Moles/Vol] 107 mmol/L 98 - 10 7 mmol/L [facility] Work Phone: [phone] CO2 [Moles/Vol] 22 mmol/L 22 - 30 mmol/L [facility] Work Phone: [phone] Creatinine [Mass/Vol] 1.23 mg/dL 0.52 - 1.25 mg/dL [facility] Work Phone: [phone] EGFR IF NonAfrican Ethiopian 57.9 mL/min >60 [facility] Work Phone: [phone] Comment on above: Source- MDRD equatio n with creatinine calibration to IDMS(NKDEP) eGFR not recommended for drug dose adjustment GFR/1.73 sq M.predicted among blacks MDRD (S/P/Bld) [Vol rate/Area] mL/min/{1.73_m2} >60 mL/min [facility] Work Phone: [phone] Glucose [Mass/Vol] 115 mg/dL High 70 - 100 mg/dL [facility] Work Phone: [phone] Potassium [Moles/Vol] 4.4 mmol/L 3.5 - 5.1 mmol/L [facility] Work Phone: [phone] Sodium [Moles/Vol] 138 mmol/L 135 - 145 mmol/L [facility] Work Phone: [phone] Urea nitrogen [Mass/Vol] 23 mg/dL High 7 - 20 mg/dL [facility] Work Phone: [phone] CBCOrdered By: Ronal villa n 05-22-2019 Erythrocyte distribution width (RBC) [Ratio] 13.5 % 11.5 - 14.5 % [facility] Work Phone: [phone] Hematocrit (Bld) [Volume fraction] 47.7 % 40 - 52 % [facility] Work Phone: [phone] Hemoglobin (Bld) [Mass/Vol] 15.4 g/dL 13 - 18 g/dL [facility] Work Phone: [phone] Interpretation and review of laboratory results Abnormal [facility] Work Phone: [phone] MCH (RBC) [Entitic mass] 27.6 pg 26 - 34 pg [facility] Work Phone: [phone] MCHC 32.2 % 32 - 36 % [facility] Work Phone: [phone] MCV (RBC) [Entitic vol] 85.7 fL 80 - 98 fL [facility] Work Phone: [phone] Platelet mean volume (Bld) [Entitic vol] 8.1 fL 7.4 - 10.4 fL [facility] Work Phone: [phone] Platelets (Bld) [#/Vol] 153 10*3/uL 140 - 440 10*3/uL [facility] Work Phone: [phone] RBC (Bld) [#/Vol] 5.57 10*6/uL 4.4 - 5.9 10*6/uL [facility] Work Phone: [phone] WBC (Bld) [#/Vol] 28.4 10*3/uL High 3.6 - 10.7 10*3/uL [facility] Work Phone: [phone] Test Performed by [facility], [address] [place] [id number] [place], [place] [address] Work Phone: [phone] CR Chest Portableon 05-22-19 20 CR Chest Portable Patient Name: BASSEM ROWLAND Diagnostic Radiology Exam Date/Time 05/22/2019 04:24:13 EST Exam CR Chest Portable Ordering Physician MD SERRA KEVIN G Accession Number [id number] CPT4 Codes 82992 () Reason For Exam fever Report CHEST X-RAY AP CLINICAL INDICATION: Fever AP radiograph of the chest was obtained. COMPARISON: None FINDINGS: The cardiac silhouette is within normal limits for size. 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 Postoperative changes of aortic valve replacement. A right atrial appendage clip is present. The lungs are hyperinflated. Coarsening of the interstitial lung markings is noted. No focal consolidation or opacification is seen within the lungs. No pleural effusion or pneumothorax is identified. There are degenerative changes of the thoracic spine. IMPRESSION: 1. No acute cardiopulmonary process. 2. Pulmonary hyperinflation. Report Dictated on Workstation: [id number] Final Dictated: 05/22/2019 4:27 am Dictating Physician: MD BETHEA JASON Signed Date and Time: 05/22/2019 4:31 am Signed by: MD BETHEA JASON Transcribed Date and Time: 05/22/2019 4:27 Normal [facility] [place] ESOPHAGRAMOrdered By: Radha Urbano on 05-22-2019 Patient Name: BASSEM ROWLAND ---Fluoroscopy--- Exam Date/Time 05/22/2019 08:15:43 EST Exam RF Esophagus Ordering Physician MD URBANO LORNA Accession Number [id number] CTP4 Codes 59525 () Reason For Exam esophageal injury, r/o perforation. Follow with barium if gastrografin negative for extravasation. Report EXAMINATION: Esophagram. REASON FOR STUDY: Food impaction. Status post foreign body removal. Deep submucosal tear identified. Please evaluate for leak. FLUOROSCOPY TIME: 0.24 minutes FLUOROSCOPIC EXPOSURES: 58 TECHNIQUE: Gastrografin was initially administered per physician request. FINDINGS: No swallowing abnormality was observed during fluoroscopy. The esophagus was normally peristaltic and distensible. There is a small hiatus hernia with a small amount of spontaneous gastroesophageal reflux. No extravasation of contrast identified. Barium was then swallowed per physician request. Additional imaging demonstrates no other abnormality. CONCLUSION: 1. Small hiatus hernia with spontaneous gastroesophageal reflux. 2. No extravasation of contrast is identified. Report Dictated on --- Final --- Dictated: 05/22/2019 11:56 am Dictating Physician: MD MONTGOMERY B NELSON Signed Date and Time: 05/22/2019 1:11 pm Signed by: MD MONTGOMERY B NELSON Transcribed Date and Time: 05/22/2019 11:58 [facility] Work Phone: [facility], [facility] Incoming Radiology Results From [facility] - 05/22/2019 1:13 PM EST Patient Name: BASSEM YEE ---Fluoroscopy--- Exam Date/Time 05/22/2019 08:15:43 EST Exam RF Esophagus Ordering Physician MD URBANO LORNA Accession Number [id number] CTP4 Codes 22219 () Reason For Exam esophageal injury, r/o perforation. Follow with barium if gastrografin negative for extravasation. Report EXAMINATION: Esophagram. REASON FOR STUDY: Food impaction. Status post foreign body removal. Deep submucosal tear identified. Please evaluate for leak. FLUOROSCOPY TIME: 0.24 minutes FLUOROSCOPIC EXPOSURES: 58 TECHNIQUE: Gastrografin was initially administered per physician request. FINDINGS: No swallowing abnormality was observed during fluoroscopy. The esophagus was normally peristaltic and distensible. There is a small hiatus hernia with a small amount of spontaneous gastroesophageal reflux. No extravasation of contrast identified. Barium was then swallowed per physician request. Additional imaging demonstrates no other abnormality. CONCLUSION: 1. Small hiatus hernia with spontaneous gastroesophageal reflux. 2. No extravasation of contrast is identified. Report Dictated on --- Final --- Dictated: 05/22/2019 11:56 am Dictating Physician: MD MONTGOMERY B NELSON Signed Date and Time: 05/22/2019 1:11 pm Signed by: MD MONTGOMERY B NELSON Transcribed Date and Time: 05/22/2019 11:58 [facility] Work Phone: Hemogramon 05-22-2019 Erythrocyte distribution width (RBC) [Ratio] 13.5 % Normal 11.5-14.5 [facility] Comment on above: Performed By: #### L ACT3, HEMOG, LFT3, BMP3, PT, PCAL #### [facility] [address] [place] [phone] Hematocrit (Bld) [Volume fraction] 47.7 % Normal 40.0-52.0 [facility] Comment on above: Performed By: #### L ACT3, HEMOG, LFT3, BMP3, PT, PCAL #### [address] [address] [place], [place] Hemoglobin (Bld) [Mass/Vol] 15.4 g/dL Normal 13.0-18.0 [facility] Comment on above: Performed By: #### L ACT3, HEMOG, LFT3, BMP3, PT, PCAL #### [address] [address] [place], [place] MCH (RBC) [Entitic mass] 27.6 pg Normal 26.0-34.0 [facility] Comment on above: Performed By: #### L ACT3, HEMOG, LFT3, BMP3, PT, PCAL #### [address] MCHC (RBC) [Mass/Vol] 32.2 % Normal 32.0-36.0 [facility] Comment on above: Performed By: #### L ACT3, HEMOG, LFT3, BMP3, PT, PCAL #### [address] [address] [place], [place] MCV (RBC) [Entitic vol] 85.7 fL Normal 80.0-98.0 [facility] Comment on above: Performed By: #### L ACT3, HEMOG, LFT3, BMP3, PT, PCAL #### [address] [address] [place], [place] Platelet mean volume (Bld) [Entitic vol] 8.1 fL Normal 7.4-10.4 [facility] Comment on above: Performed By: #### L ACT3, HEMOG, LFT3, BMP3, PT, PCAL #### [address] [address] [place], [place] Platelets (Bld) [#/Vol] 153 10*3/uL Normal 140-440 [facility] Comment on above: Performed By: #### L ACT3, HEMOG, LFT3, BMP3, PT, PCAL #### [address] [address] [place], [place] RBC (Bld) [#/Vol] 5.57 10*6/uL Normal 4.40-5.90 [facility] Comment on above: Performed By: #### L ACT3, HEMOG, LFT3, BMP3, PT, PCAL #### [address] [address] [place], [place] WBC (Bld) [#/Vol] 28.4 10*3/uL High 3.6-10.7 [facility] Comment on above: Performed By: #### L ACT3, HEMOG, LFT3, BMP3, PT, PCAL #### [address] [address] [place], [place] Hepatic Functionon 0 ALP [Catalytic activity/Vol] 57 U/L Normal 38-126 [facility] Comment on above: Performed By: #### L ACT3, HEMOG, LFT3, BMP3, PT, PCAL #### [address] [address] [place] ALT [Catalytic activity/Vol] 22 U/L Normal 13-69 [facility] Comment on above: Performed By: #### L ACT3, HEMOG, LFT3, BMP3, PT, PCAL #### [address] [address] [place] AST [Catalytic activity/Vol] 45 U/L Normal 15-46 [facility] Comment on above: Performed By: #### L ACT3, HEMOG, LFT3, BMP3, PT, PCAL #### [address] [address] [address] [place], [place] Bilirubin [Mass/Vol] 1.5 mg/dL High 0.2-1.3 [facility] Comment on above: Performed By: #### L ACT3, HEMOG, LFT3, BMP3, PT, PCAL #### [address] Bilirubin.direct [Mass/Vol] 0.0 mg/dL Normal 0.0-0.3 [facility] Comment on above: Performed By: #### L ACT3, HEMOG, LFT3, BMP3, PT, PCAL #### [facility] [facility] [address] [place], [place] Protein [Mass/Vol] 6.7 g/dL Normal 6.3-8.2 [facility] Comment on above: Performed By: #### L ACT3, HEMOG, LFT3, BMP3, PT, PCAL #### [facility] [address] [place] [address] [place], [place] Albumin [Mass/Vol] 4.0 g/dL Normal 3.5-5.0 [facility] Comment on above: Performed By: #### L ACT3, HEMOG, LFT3, BMP3, PT, PCAL #### [facility] [address] [place] [address] [address] [place], [place] Hepatic Function PanelOrdere d By: Ronal Serra on 05-22-2019 Albumin [Mass/Vol] 4.0 g/dL 3.5 - 5 g/dL [facility] Work Phone: ALP [Catalytic activity/Vol] 57 U/L 38 - 126 U/L [facility] Work Phone: ALT [Catalytic activity/Vol] 22 U/L 13 - 69 U/L [facility] Work Phone: AST [Catalytic activity/Vol] 45 U/L 15 - 46 U/L [facility] Work Phone: Bilirubin [Mass/Vol] 1.5 mg/dL High 0.2 - 1 .3 mg/dL [facility] Work Phone: Bilirubin.indirect [Mass/Vol] 0.0 mg/dL 0 - 0.3 mg/dL [facility] Work Phone: Protein [Mass/Vol] 6.7 g/dL 6.3 - 8.2 g/dL [facility] Work Phone: Lactic Acidon 05-22-2019 Lactate [Moles/Vol] 0.9 mmol/L Normal 0.7-2.0 [facility] Comment on above: Performed By: #### L ACT3, HEMOG, LFT3, BMP3, PT, PCAL #### [facility] [address] [place] [address] [place] [address] Lactic Acid, PlasmaOrdered B y: Ronal Serra on 05-22-2019 Lactate [Moles/Vol] 0.9 mmol/L 0.7 - 2 mmol/L [employer] Work Phone: Test Performed by [facility] [employer], [address] [place] [id number] [employer] Work Phone: No Panel InformationOrdered By: Ronal Serra on 05-22-2019 Interpretation and review of laboratory results Abnormal [facility] Work Phone: Test Performed by [facility], [address] [place] [address] [employer] Work Phone: Procalcitoninon 05-22-2019 Procalcitonin < 0.10 Normal <0.10 [facility] Comment on above: Performed By: #### L ACT3, HEMOG, LFT3, BMP3, PT, PCAL #### [facility] [place] [address] Interpretation See Below Normal [facility] Comment on above: Result Comment: PCT <0.50 = Low risk of severe sepsis and/or septic shock. PCT >2.00 = High risk of severe sepsis and/or septic shock. Performed By: #### L ACT3, HEMOG, LFT3, BMP3, PT, PCAL #### [employer] [address] [place] [phone] ProcalcitoninOrdered By: Ever Serra on 05-22-2019 Interpretation See Below [employer] Work Phone: Comment on above: PCT <0.50 = Low risk of severe sepsis and/or septic shock. PCT >2.00 = High risk of severe sepsis and/or septic shock. Procalcitonin <0.10 <0.10 ng/mL [facility] Work Phone: Test Performed by [facility], [address] [place] [id number] [employer] Work Phone: Prothrombin Timeon 0 INR Coag (PPP) [Relative time] 1.0 Normal 0.9-1.1 [facility] Comment on above: Result Comment: Junaid mmended Anticoagulant Therapy: SEE BELOW ----- INR of 2.0 - 3.0 : - Prophylaxis of Venous Thrombosis (high-risk surgery) - Treatment of Venous Thrombosis - Treatment of Pulmonary Embolism (Includes tissue heart valves, Acute Myocardial Infarction to prevent systemic embolism, Valvular Heart Disease, and Atrial Fibrillation) ----- INR of 2.5 - 3.5 : - Mechanical Prosthetic Valves (high risk) - If oral anticoagulant therapy is used to prevent Myocardial Infarction Performed By: #### L ACT3, HEMOG, LFT3, BMP3, PT, PCAL #### [address] [address] PT Coag (PPP) [Time] 10.8 s Normal 9.0-12.0 [facility] Comment on above: Result Comment: . Performed By: #### L ACT3, HEMOG, LFT3, BMP3, PT, PCAL #### [address] [address] Protime-INROrdered By: Ronal Serra on 05-22-2019 INR Coag (PPP) [Relative time] 1.0 {INR} [facility] Work Phone: Comment on above: Recommended Anticoag ulant Therapy: SEE BELOW ----- INR of 2.0 - 3.0 : - Prophylaxis of Venous Thrombosis (high-risk surgery) - Treatment of Venous Thrombosis - Treatment of Pulmonary Embolism (Includes tissue heart valves, Acute Myocardial Infarction to prevent systemic embolism, Valvular Heart Disease, and Atrial Fibrillation) ----- INR of 2.5 - 3.5 : - Mechanical Prosthetic Valves (high risk) - If oral anticoagulant therapy is used to prevent Myocardial Infarction PT Coag (PPP) [Time] 10.8 s 9 - 12 s [facility] Work Phone: Comment on above: . Test Performed by [facility], [address] [place] [id number] [facility] Work Phone: RF Esophaguson 05-22-2019 RF Esophagus Patient Name: BASSEM ROWLAND Fluoroscopy Exam Date/Time 05/22/2019 08:15:43 EST Exam RF Esophagus Ordering Physician MD URBANO LORNA Accession Number [id number] CTP4 Codes 50644 () Reason For Exam esophageal injury, r/o perforation. Follow with barium if gastrografin negative for extravasation. Report EXAMINATION: Esophagram. REASON FOR STUDY: Food impaction. Status post foreign body removal. Deep submucosal tear identified. Please evaluate for leak. FLUOROSCOPY TIME: 0.24 minutes FLUOROSCOPIC EXPOSURES: 58 TECHNIQUE: Gastrografin was initially administered per physician request. FINDINGS: No swallowing abnormality was observed during fluoroscopy. The esophagus was normally peristaltic and distensible. There is a small hiatus hernia with a small amount of spontaneous gastroesophageal reflux. No extravasation of contrast identified. Barium was then swallowed per physician request. Additional imaging demonstrates no other abnormality. CONCLUSION: 1. Small hiatus hernia with spontaneous gastroesophageal reflux. 2. No extravasation of contrast is identified. Report Dictated on Final Dictated: 05/22/2019 11:56 am Dictating Physician: MD MONTGOMERY B NELSON Signed Date and Time: 05/22/2019 1:11 pm Signed by: MD MONTGOMERY B NELSON Transcribed Date and Time: 05/22/2019 11:58 Normal [facility] TS GELon 05-22-2019 TS GEL ABO Group: A Rh, Gel: NEG Antibody Screen Gel: NEG Normal [facility] Comment on above: Performed By: #### T SGL #### [place] [address] [employer] [address] System TYPE AND SCREENOrdered By: Jyoti Lorenzana on 05-22-2019 ABO Grouping A [facility] Work Phone: Rh Type Negative [facility] Work Phone: Comment on above: Test Performed by [facility], [facility] [place] [address] Test Performed by [facility], [facility] [place] [id number] [place] [address] Work Phone: XR CHEST PORTABLEOrdered By: Ronla Serra on 05-22-2019 Patient Name: BASSEM ROWLAND ---Diagnostic Radiology--- Exam Date/Time 05/22/2019 04:24:13 EST Exam CR Chest Portable Ordering Physician MD SERRA KEVIN G Accession Number [id number] CPT4 Codes 95089 () Reason For Exam fever Report CHEST X-RAY AP CLINICAL INDICATION: Fever AP radiograph of the chest was obtained. COMPARISON: None FINDINGS: The cardiac silhouette is within normal limits for size. 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 Postoperative changes of aortic valve replacement. A right atrial appendage clip is present. The lungs are hyperinflated. Coarsening of the interstitial lung markings is noted. No focal consolidation or opacification is seen within the lungs. No pleural effusion or pneumothorax is identified. There are degenerative changes of the thoracic spine. IMPRESSION: 1. No acute cardiopulmonary process. 2. Pulmonary hyperinflation. Report Dictated on Workstation: [id number] --- Final --- Dictated: 05/22/2019 4:27 am Dictating Physician: MD BETHEA JASON Signed Date and Time: 05/22/2019 4:31 am Signed by: MD BETHEA JASON Transcribed Date and Time: 05/22/2019 4:27 [facility] Work Phone: Kevin, [facility] Incoming Radiology Results From [facility] - 05/22/2019 4:32 AM EST Patient Name: BASSEM YEE ---Diagnostic Radiology--- Exam Date/Time 05/22/2019 04:24:13 EST Exam CR Chest Portable Ordering Physician MD SERRA KEVIN G Accession Number [id number] CPT4 Codes 68027 () Reason For Exam fever Report CHEST X-RAY AP CLINICAL INDICATION: Fever AP radiograph of the chest was obtained. COMPARISON: None FINDINGS: The cardiac silhouette is within normal limits for size. 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 Postoperative changes of aortic valve replacement. A right atrial appendage clip is present. The lungs are hyperinflated. Coarsening of the interstitial lung markings is noted. No focal consolidation or opacification is seen within the lungs. No pleural effusion or pneumothorax is identified. There are degenerative changes of the thoracic spine. IMPRESSION: 1. No acute cardiopulmonary process. 2. Pulmonary hyperinflation. Report Dictated on Workstation: [id number] --- Final --- Dictated: 05/22/2019 4:27 am Dictating Physician: MD BETHEA JASON Signed Date and Time: 05/22/2019 4:31 am Signed by: MD BETHEA JASON Transcribed Date and Time: 05/22/2019 4:27 [facility] Work Phone: PSA, Freeon 04-16-2019 PSA, Diagnostic 8.90 ng/mL High 0.00-2.59 [facility] Comment on above: Performed By: #### P SATF #### [facility] Routine Lab [address] [address] PSA, Percent Free DO NOT OR 23 % Normal [facility] Comment on above: Performed By: #### P SATF #### [facility] Routine Lab [address] [place], [place] [address] Vital Signs Date Time Vital Sign Value Performing Clinician Jose Alejandro aldridge 03-09-2025 09:07-0400 Body height 172.[address] Shira Pavon MD Work Phone: [facility] 03-09-2025 09:07-0400 Body mass index (BMI) [Ratio] 20.9 kg/m2 Dr. Shira Pavon MD Work Phone: [facility] 03-09-2025 09:07-0400 Body temperature 98.1 [degF] Dr. Shira Pavon MD Work Phone: [facility] 03-09-2025 09:07-0400 Body weight 62.[address] Shira Pavon MD Work Phone: [facility] 03-09-2025 09:07-0400 Diastolic blood pressure 69 mm[Hg] Dr. Shira Pavon MD Work Phone: [facility] 03-09-2025 09:07-0400 Heart rate 86 /min Dr. Shira Pavon MD Work Phone: [facility] 03-09-2025 09:07-0400 Respiratory rate 18 /min Dr. Shira Pavon MD Work Phone: [facility] 03-09-2025 09:07-0400 SaO2% (BldA) [Mass fraction] 98 % Dr. Shira Pavon MD Work Phone: [facility] 03-09-2025 09:07-0400 Systolic blood pressure 121 mm[Hg] Dr. Shira Pavon MD Work Phone: 1(854)825-031492 [address] [place] [address] 02-24-2025 08:39-0400 Body mass index (BMI) [Ratio] 21.3 kg/m2 Dr. Shira Pavon MD Work Phone: 1(130)579-492792 [address] [place] [address] 02-24-2025 08:39-0400 Body temperature 98.6 [degF] Dr. Shira Pavon MD Work Phone: 9(235)163-298092 [address] [place] [address] 02-24-2025 08:39-0400 Body weight 63.[address] Shira Pavon MD Work Phone: 8(613)277-652092 [address] [place] [address] 02-24-2025 08:39-0400 Diastolic blood pressure 65 mm[Hg] Dr. Shira Pavon MD Work Phone: 2(784)132-826592 [address] [place] [address] 02-24-2025 08:39-0400 Heart rate 76 /min Dr. Shira Pavon MD Work Phone: 3(745)394-014092 [address] [place] [address] 02-24-2025 08:39-0400 Respiratory rate 18 /min Dr. Shira Pavon MD Work Phone: [facility] 02-24-2025 08:39-0400 SaO2% (BldA) [Mass fraction] 95 % Dr. Shira Pavon MD Work Phone: 9(140)[phone] [address] [place] [address] 02-24-2025 08:39-0400 Systolic blood pressure 114 mm[Hg] Dr. Shira Pavon MD Work Phone: 9(974)482-056992 [address] [place] [address] 02-16-2025 15:15-0400 Body height 172.[address] Shira Pavon MD Work Phone: 4(357)369-884292 [address] [place] [address] 02-16-2025 15:15-0400 Body mass index (BMI) [Ratio] 21.2 kg/m2 Dr. Shira Pavon MD Work Phone: 2(800)731-336692 [address] [place] [address] 02-16-2025 15:15-0400 Body temperature 98 [degF] Dr. Shira Pavon MD Work Phone: 7(321)031-585892 [address] [place] [address] 02-16-2025 15:15-0400 Body weight 63.[address] Shira Pavon MD Work Phone: 4(010)842-428692 [address] [place] [address] 02-16-2025 15:15-0400 Diastolic blood pressure 76 mm[Hg] Dr. Shira Pavon MD Work Phone: 8(613)985-487692 [address] [place] [address] 02-16-2025 15:15-0400 Heart rate 92 /min Dr. Shira Pavon MD Work Phone: 9(193)018-295392 [address] [place] [address] 02-16-2025 15:15-0400 Respiratory rate 18 /min Dr. Shira Pavon MD Work Phone: 7(411)929-868551 [place] [address] 02-16-2025 15:15-0400 SaO2% (BldA) [Mass fraction] 96 % Dr. Shira Pavon MD Work Phone: 2(714)824-295692 [address] [place] [address] 02-16-2025 15:15-0400 Systolic blood pressure 128 mm[Hg] Dr. Shira Pavon MD Work Phone: 4(441)713-888092 [address] [place] [address] 02-10-2025 13:59-0400 Body temperature 97.1 [degF] Dr. Shira Pavon MD Work Phone: 9(505)235-115592 [address] [place] [address] 02-10-2025 13:59-0400 Diastolic blood pressure 65 mm[Hg] Dr. Shira Pavon MD Work Phone: 5(888)763-496792 [address] [place] [address] 02-10-2025 13:59-0400 Heart rate 71 /min Dr. Shira Pavon MD Work Phone: [facility] 02-10-2025 13:59-0400 Respiratory rate 16 /min Dr. Shira Pavon MD Work Phone: [facility] 02-10-2025 13:59-0400 SaO2% (BldA) [Mass fraction] 98 % Dr. Shira Pavon MD Work Phone: [facility] 02-10-2025 13:59-0400 Systolic blood pressure 116 mm[Hg] Dr. Shira Pavon MD Work Phone: [facility] 02-09-2025 08:46-0400 Body height 172.[address] Shira Pavon MD Work Phone: [facility] 02-09-2025 08:46-0400 Body mass index (BMI) [Ratio] 21 kg/m2 Dr. Shira Pavon MD Work Phone: [facility] 02-09-2025 08:46-0400 Body temperature 98.4 [degF] Dr. Shira Pavon MD Work Phone: [facility] 02-09-2025 08:46-0400 Body weight 62.[address] Shira Pavon MD Work Phone: [facility] 02-09-2025 08:46-0400 Diastolic blood pressure 66 mm[Hg] Dr. Shira Pavon MD Work Phone: [facility] 02-09-2025 08:46-0400 Heart rate 88 /min Dr. Shira Pavon MD Work Phone: [facility] 02-09-2025 08:46-0400 Respiratory rate 18 /min Dr. Shira Pavon MD Work Phone: [facility] 02-09-2025 08:46-0400 SaO2% (BldA) [Mass fraction] 95 % Dr. Shira Pavon MD Work Phone: [facility] 02-09-2025 08:46-0400 Systolic blood pressure 106 mm[Hg] Dr. Shira Pavon MD Work Phone: [facility] 01-26-2025 08:55-0400 Body height 172.[address] Shira Pavon MD Work Phone: [facility] 01-26-2025 08:55-0400 Body mass index (BMI) [Ratio] 21.4 kg/m2 Dr. Shira Pavon MD Work Phone: [facility] 01-26-2025 08:55-0400 Body temperature 98.4 [degF] Dr. Shira Pavon MD Work Phone: [facility] 01-26-2025 08:55-0400 Body weight 63.[address] Shira Pavon MD Work Phone: [facility] 01-26-2025 08:55-0400 Diastolic blood pressure 68 mm[Hg] Dr. Shira Pavon MD Work Phone: [facility] 01-26-2025 08:55-0400 Heart rate 81 /min Dr. Shira Pavon MD Work Phone: [facility] 01-26-2025 08:55-0400 Respiratory rate 18 /min Dr. Shira Pavon MD Work Phone: [facility] 01-26-2025 08:55-0400 SaO2% (BldA) [Mass fraction] 100 % Dr. Shira Pavon MD Work Phone: [facility] 01-26-2025 08:55-0400 Systolic blood pressure 111 mm[Hg] Dr. Shira Pavon MD Work Phone: [facility] 01-20-2025 05:17-0400 Body mass index (BMI) [Ratio] 21.2 kg/m2 Dr. Shira Pavon MD Work Phone: 4(019)635-437592 [address] [place] [address] 01-20-2025 05:17-0400 Body temperature 97.2 [degF] Dr. Shira Pavon MD Work Phone: 6(680)521-971092 [address] [place] [address] 01-20-2025 05:17-0400 Body weight 63.[address] Shira Pavon MD Work Phone: 7(092)656-844592 [address] [place] [address] 01-20-2025 05:17-0400 Diastolic blood pressure 68 mm[Hg] Dr. Shira Pavon MD Work Phone: 0(270)435-083392 [address] [place] [address] 01-20-2025 05:17-0400 Heart rate 84 /min Dr. Shira Pavon MD Work Phone: 2(541)917-095592 [address] [place] [address] 01-20-2025 05:17-0400 Respiratory rate 18 /min Dr. Shira Pavon MD Work Phone: 0(628)875-605892 [address] [place] [address] 01-20-2025 05:17-0400 SaO2% (BldA) [Mass fraction] 100 % Dr. Shira Pavon MD Work Phone: 2(240)238-489592 [address] [place] [address] 01-20-2025 05:17-0400 Systolic blood pressure 106 mm[Hg] Dr. Shira Pavno MD Work Phone: 4(522)043-229892 [address] [place] [address] 01-15-2025 14:49-0400 Body temperature 96.9 [degF] Dr. Shira Pavon MD Work Phone: 6(260)995-985292 [address] [place] [address] 01-15-2025 14:49-0400 Diastolic blood pressure 53 mm[Hg] Dr. Shira Pavon MD Work Phone: 6(624)312-425092 [address] [place] [address] 01-15-2025 14:49-0400 Heart rate 67 /min Dr. Shira Pavon MD Work Phone: 5(746)034-601392 [address] [place] [address] 01-15-2025 14:49-0400 Respiratory rate 16 /min Dr. Shira Pavon MD Work Phone: 9(900)669-901692 [address] [place] [address] 01-15-2025 14:49-0400 SaO2% (BldA) [Mass fraction] 98 % Dr. Shira Pavon MD Work Phone: [facility] 01-15-2025 14:49-0400 Systolic blood pressure 99 mm[Hg] Dr. Shira Pavon MD Work Phone: [facility] 01-14-2025 09:20-0400 Body height 172.[address] Shira Pavon MD Work Phone: [facility] 01-14-2025 09:20-0400 Body mass index (BMI) [Ratio] 21.1 kg/m2 Dr. Shira Pavon MD Work Phone: [facility] 01-14-2025 09:20-0400 Body temperature 98.4 [degF] Dr. Shira Pavon MD Work Phone: [facility] 01-14-2025 09:20-0400 Body weight 63.[address] Shira Pavon MD Work Phone: [facility] 01-14-2025 09:20-0400 Diastolic blood pressure 61 mm[Hg] Dr. Shira Pavon MD Work Phone: [facility] 01-14-2025 09:20-0400 Heart rate 73 /min Dr. Shira Pavon MD Work Phone: [facility] 01-14-2025 09:20-0400 Respiratory rate 18 /min Dr. Shira Pavon MD Work Phone: [facility] 01-14-2025 09:20-0400 SaO2% (BldA) [Mass fraction] 93 % Dr. Shira Pavon MD Work Phone: [facility] 01-14-2025 09:20-0400 Systolic blood pressure 119 mm[Hg] Dr. Shira Pavon MD Work Phone: [facility] 12-31-2024 09:27-0400 Body height 172.[address] Shira Pavon MD Work Phone: [facility] 12-31-2024 09:27-0400 Body mass index (BMI) [Ratio] 20.9 kg/m2 Dr. Shira Pavon MD Work Phone: [facility] 12-31-2024 09:27-0400 Body temperature 97.9 [degF] Dr. Shira Pavon MD Work Phone: [facility] 12-31-2024 09:27-0400 Body weight 62.[address] Shira Pavon MD Work Phone: [facility] 12-31-2024 09:27-0400 Diastolic blood pressure 75 mm[Hg] Dr. Shira Pavon MD Work Phone: [facility] 12-31-2024 09:27-0400 Heart rate 65 /min Dr. Shira Pavon MD Work Phone: 0(798)212-544992 [address] [place] [address] 12-31-2024 09:27-0400 Respiratory rate 18 /min Dr. Shira Pavon MD Work Phone: 2(142)981-584492 [address] [place] [address] 12-31-2024 09:27-0400 SaO2% (BldA) [Mass fraction] 97 % Dr. Shira Pavon MD Work Phone: [facility] 12-31-2024 09:27-0400 Systolic blood pressure 115 mm[Hg] Dr. Shira Pavon MD Work Phone: [facility] 12-23-2024 12:27-0400 Body height 172.[address] Shira Pavon MD Work Phone: [facility] 12-23-2024 12:27-0400 Body mass index (BMI) [Ratio] 20.9 kg/m2 Dr. Shira Pavon MD Work Phone: [facility] 12-23-2024 12:27-0400 Body weight 62.[address] Shira Pavon MD Work Phone: [facility] 12-23-2024 12:27-0400 Diastolic blood pressure 63 mm[Hg] Dr. Shira Pavon MD Work Phone: [facility] 12-23-2024 12:27-0400 Heart rate 104 /min Dr. Shira Pavon MD Work Phone: [facility] 12-23-2024 12:27-0400 Respiratory rate 20 /min Dr. Shira Pavon MD Work Phone: [facility] 12-23-2024 12:27-0400 SaO2% (BldA) [Mass fraction] 93 % Dr. Shira Pavon MD Work Phone: 6(629)357-172792 [address] [place] [address] 12-23-2024 12:27-0400 Systolic blood pressure 112 mm[Hg] Dr. Shira Pavon MD Work Phone: 4(611)336-310892 [address] [place] [address] 12-23-2024 11:29-0400 Diastolic blood pressure 68 mm[Hg] Dr. Shira Pavon MD Work Phone: 4(312)406-328092 [address] [place] [address] 12-23-2024 11:29-0400 Systolic blood pressure 106 mm[Hg] Dr. Shira Pavon MD Work Phone: [facility] 12-23-2024 10:24-0400 Heart rate 92 /min Dr. Shira Pavon MD Work Phone: 7(752)447-971092 [address] [place] [address] 12-23-2024 10:24-0400 Respiratory rate 18 /min Dr. Shira Pavon MD Work Phone: 4(500)477-367692 [address] [place] [address] 12-23-2024 10:24-0400 SaO2% (BldA) [Mass fraction] 97 % Dr. Shira Pavon MD Work Phone: 0(989)951-836392 [address] [place] [address] 12-23-2024 09:23-0400 Body height 172.[address] Shira Pavon MD Work Phone: 8(310)388-390192 [address] [place] [address] 12-23-2024 09:23-0400 Body mass index (BMI) [Ratio] 20.9 kg/m2 Dr. Shira Pavon MD Work Phone: [facility] 12-23-2024 09:23-0400 Body temperature 97.1 [degF] Dr. Shira Pavon MD Work Phone: [facility] 12-23-2024 09:23-0400 Body weight 62.[address] Shira Pavon MD Work Phone: [facility] 12-18-2024 15:01-0400 Diastolic blood pressure 59 mm[Hg] Dr. Shira Pavon MD Work Phone: 0(209)501-382892 [address] [place] [address] 12-18-2024 15:01-0400 Heart rate 68 /min Dr. Shira Pavon MD Work Phone: 0(026)142-791592 [address] [place] [address] 12-18-2024 15:01-0400 Respiratory rate 16 /min Dr. Shira Pavon MD Work Phone: [facility] 12-18-2024 15:01-0400 SaO2% (BldA) [Mass fraction] 97 % Dr. Shira Pavon MD Work Phone: [facility] 12-18-2024 15:01-0400 Systolic blood pressure 107 mm[Hg] Dr. Shira Pavon MD Work Phone: [facility] 12-17-2024 14:28-0400 Body temperature 97.6 [degF] Dr. Shira Pavon MD Work Phone: [facility] 12-17-2024 08:19-0400 Body height 172.[address] Shira Pavon MD Work Phone: [facility] 12-17-2024 08:19-0400 Body mass index (BMI) [Ratio] 21.2 kg/m2 Dr. Shira Pavon MD Work Phone: 7(530)713-707792 [address] [place] [address] 12-17-2024 08:19-0400 Body temperature 98.4 [degF] Dr. Shira Pavon MD Work Phone: [facility] 12-17-2024 08:19-0400 Body weight 63.[address] Shira Pavon MD Work Phone: [facility] 12-17-2024 08:19-0400 Diastolic blood pressure 65 mm[Hg] Dr. Shira Pavon MD Work Phone: [facility] 12-17-2024 08:19-0400 Heart rate 61 /min Dr. Shira Pavon MD Work Phone: [facility] 12-17-2024 08:19-0400 Respiratory rate 18 /min Dr. Shira Pavon MD Work Phone: [facility] 12-17-2024 08:19-0400 SaO2% (BldA) [Mass fraction] 98 % Dr. Shira Pavon MD Work Phone: [facility] 12-17-2024 08:19-0400 Systolic blood pressure 117 mm[Hg] Dr. Shira Pavon MD Work Phone: [facility] 12-04-2024 14:27-0400 Body height 172.[address] Shira Pavon MD Work Phone: [facility] 12-04-2024 14:27-0400 Body mass index (BMI) [Ratio] 20.8 kg/m2 Dr. Shira Pavon MD Work Phone: [facility] 12-04-2024 14:27-0400 Body temperature 99 [degF] Dr. Shira Pavon MD Work Phone: [facility] 12-04-2024 14:27-0400 Body weight 62.[address] Shira Pavon MD Work Phone: [facility] 12-04-2024 14:27-0400 Diastolic blood pressure 71 mm[Hg] Dr. Shira Pavon MD Work Phone: [facility] 12-04-2024 14:27-0400 Heart rate 84 /min Dr. Shira Pavon MD Work Phone: [facility] 12-04-2024 14:27-0400 Respiratory rate 18 /min Dr. Shira Pavon MD Work Phone: [facility] 12-04-2024 14:27-0400 SaO2% (BldA) [Mass fraction] 96 % Dr. Shira Pavon MD Work Phone: [facility] 12-04-2024 14:27-0400 Systolic blood pressure 125 mm[Hg] Dr. Shira Pavon MD Work Phone: [facility] 12-03-2024 07:12-0400 Body mass index (BMI) [Ratio] 20.5 kg/m2 Dr. Shira Pavon MD Work Phone: [facility] 12-03-2024 07:12-0400 Body temperature 97.1 [degF] Dr. Shira Pavon MD Work Phone: [facility] 12-03-2024 07:12-0400 Body weight 61.[address] Shira Pavon MD Work Phone: [facility] 12-03-2024 07:12-0400 Diastolic blood pressure 74 mm[Hg] Dr. Shira Pavon MD Work Phone: [facility] 12-03-2024 07:12-0400 Heart rate 86 /min Dr. Shira Pavon MD Work Phone: [facility] 12-03-2024 07:12-0400 Respiratory rate 18 /min Dr. Shira Pavon MD Work Phone: [facility] 12-03-2024 07:12-0400 SaO2% (BldA) [Mass fraction] 92 % Dr. Shira Pavon MD Work Phone: [facility] 12-03-2024 07:12-0400 Systolic blood pressure 121 mm[Hg] Dr. Shira Pavon MD Work Phone: [facility] 11-27-2024 12:56-0400 Body height 172.[address] Shira Pavon MD Work Phone: [facility] 11-27-2024 12:56-0400 Body weight 60.[address] Shira Pavon MD Work Phone: 3(668)[phone] [address] [place] [address] 11-27-2024 12:56-0400 Heart rate 86 /min Dr. Shira Pavon MD Work Phone: 5(595)833-926992 [address] [place] [address] 11-27-2024 12:56-0400 SaO2% (BldA) [Mass fraction] 96 % Dr. Shira Pavon MD Work Phone: 7(015)037-319292 [address] [place] [address] 11-20-2024 13:27-0400 Diastolic blood pressure 75 mm[Hg] Dr. Shira Pavon MD Work Phone: 7(968)622-810092 [address] [place] [address] 11-20-2024 13:27-0400 Heart rate 64 /min Dr. Shira Pavon MD Work Phone: [facility] 11-20-2024 13:27-0400 Respiratory rate 18 /min Dr. Shira Pavon MD Work Phone: [facility] 11-20-2024 13:27-0400 SaO2% (BldA) [Mass fraction] 96 % Dr. Shira Pavon MD Work Phone: [facility] 11-20-2024 13:27-0400 Systolic blood pressure 131 mm[Hg] Dr. Shira Pavon MD Work Phone: [facility] 11-20-2024 09:32-0400 Inhaled oxygen flow rate 4 L/min Dr. Shira Pavon MD Work Phone: [facility] 11-20-2024 08:10-0400 Body mass index (BMI) [Ratio] 20.5 kg/m2 Dr. Shira Pavon MD Work Phone: [facility] 11-20-2024 08:10-0400 Body temperature 97.7 [degF] Dr. Shira Pavon MD Work Phone: [facility] 11-20-2024 08:10-0400 Body weight 61.[address] Shira Pavon MD Work Phone: [facility] 11-13-2024 15:07-0400 Body height 175.[address] Shira Pavon MD Work Phone: 2(483)[phone] [address] [place] [address] 11-13-2024 15:07-0400 Body mass index (BMI) [Ratio] 20.4 kg/m2 Dr. Shira Pavon MD Work Phone: [facility] 11-13-2024 15:07-0400 Body temperature 98.4 [degF] Dr. Shira Pavon MD Work Phone: [facility] 11-13-2024 15:07-0400 Body weight 62.[address] Shira Pavon MD Work Phone: [facility] 11-13-2024 15:07-0400 Diastolic blood pressure 81 mm[Hg] Dr. Shira Pavon MD Work Phone: [facility] 11-13-2024 15:07-0400 Heart rate 85 /min Dr. Shira Pavon MD Work Phone: [facility] 11-13-2024 15:07-0400 Respiratory rate 18 /min Dr. Shira Pavon MD Work Phone: [facility] 11-13-2024 15:07-0400 SaO2% (BldA) [Mass fraction] 96 % Dr. Shira Pavon MD Work Phone: [facility] 11-13-2024 15:07-0400 Systolic blood pressure 127 mm[Hg] Dr. Shira Pavon MD Work Phone: [facility] 11-12-2024 06:56-0400 Body mass index (BMI) [Ratio] 20.5 kg/m2 Dr. Shira Pavon MD Work Phone: [facility] 11-12-2024 06:56-0400 Body temperature 97.4 [degF] Dr. Shira Pavon MD Work Phone: [facility] 11-12-2024 06:56-0400 Body weight 63.[address] Shira Pavon MD Work Phone: [facility] 11-12-2024 06:56-0400 Diastolic blood pressure 66 mm[Hg] Dr. Shira Pavon MD Work Phone: [facility] 11-12-2024 06:56-0400 Heart rate 75 /min Dr. Shira Pavon MD Work Phone: [facility] 11-12-2024 06:56-0400 Respiratory rate 18 /min Dr. Shira Pavon MD Work Phone: [facility] 11-12-2024 06:56-0400 SaO2% (BldA) [Mass fraction] 98 % Dr. Shira Pavon MD Work Phone: [facility] 11-12-2024 06:56-0400 Systolic blood pressure 106 mm[Hg] Dr. Shira Pavon MD Work Phone: [facility] 10-30-2024 10:01-0400 Body height 175.[address] Shira Pavon MD Work Phone: [facility] 10-30-2024 10:01-0400 Body mass index (BMI) [Ratio] 20.9 kg/m2 Dr. Shira Pavon MD Work Phone: [facility] 10-30-2024 10:01-0400 Body temperature 98.2 [degF] Dr. Shira Pavon MD Work Phone: [facility] 10-30-2024 10:01-0400 Body weight 64.[address] Shira Pavon MD Work Phone: [facility] 10-30-2024 10:01-0400 Diastolic blood pressure 70 mm[Hg] Dr. Shira Pavon MD Work Phone: [facility] 10-30-2024 10:01-0400 Heart rate 73 /min Dr. Shira Pavon MD Work Phone: [facility] 10-30-2024 10:01-0400 Respiratory rate 18 /min Dr. Shira Pavon MD Work Phone: [facility] 10-30-2024 10:01-0400 SaO2% (BldA) [Mass fraction] 98 % Dr. Shira Pavon MD Work Phone: [facility] 10-30-2024 10:01-0400 Systolic blood pressure 108 mm[Hg] Dr. Shira Pavon MD Work Phone: [facility] 10-02-2024 10:29-0400 Body mass index (BMI) [Ratio] 21.4 kg/m2 Dr. Shira Pavon MD Work Phone: [facility] 10-02-2024 10:29-0400 Body temperature 98.4 [degF] Dr. Shira Pavon MD Work Phone: [facility] 10-02-2024 10:29-0400 Body weight 65.[address] Shira Pavon MD Work Phone: [facility] 10-02-2024 10:29-0400 Diastolic blood pressure 66 mm[Hg] Dr. Shira Pavon MD Work Phone: [facility] 10-02-2024 10:29-0400 Heart rate 60 /min Dr. Shira Pavon MD Work Phone: [facility] 10-02-2024 10:29-0400 Respiratory rate 18 /min Dr. Shira Pavon MD Work Phone: 1(250)619-160392 [address] [place] [address] 10-02-2024 10:29-0400 SaO2% (BldA) [Mass fraction] 98 % Dr. Shira Pavon MD Work Phone: 0(588)228-717292 [address] [place] [address] 10-02-2024 10:29-0400 Systolic blood pressure 109 mm[Hg] Dr. Shira Pavon MD Work Phone: 5(535)449-231992 [address] [place] [address] 09-03-2024 13:16-0400 Body mass index (BMI) [Ratio] 21.1 kg/m2 Dr. Shira Pavon MD Work Phone: 0(502)133-726551 [place] [address] 09-03-2024 13:16-0400 Body weight 64.[address] Shira Pavon MD Work Phone: 6(154)902-515951 [place] [address] 09-03-2024 13:16-0400 Diastolic blood pressure 74 mm[Hg] Dr. Shira Pavon MD Work Phone: 3(306)601-577892 [address] [place] [address] 09-03-2024 13:16-0400 Heart rate 68 /min Dr. Shira Pavon MD Work Phone: 4(729)774-541292 [address] [place] [address] 09-03-2024 13:16-0400 Respiratory rate 16 /min Dr. Shira Pavon MD Work Phone: 3(966)725-316092 [address] [place] [address] 09-03-2024 13:16-0400 Systolic blood pressure 120 mm[Hg] Dr. Shira Pavon MD Work Phone: 9(786)134-410492 [address] [place] [address] 07-31-2024 14:59-0400 Body mass index (BMI) [Ratio] 20.8 kg/m2 Dr. Shira Pavon MD Work Phone: 4(552)260-557692 [address] [place] [address] 07-31-2024 14:59-0400 Body temperature 98.3 [degF] Dr. Shira Pavon MD Work Phone: 5(289)632-310792 [address] [place] [address] 07-31-2024 14:59-0400 Body weight 64.[address] Shira Pavon MD Work Phone: [facility] 07-31-2024 14:59-0400 Diastolic blood pressure 76 mm[Hg] Dr. Shira Pavon MD Work Phone: [facility] 07-31-2024 14:59-0400 Heart rate 68 /min Dr. Shira Pavon MD Work Phone: [facility] 07-31-2024 14:59-0400 Respiratory rate 18 /min Dr. Shira Pavon MD Work Phone: 9(338)625-236592 [address] [place] [address] 07-31-2024 14:59-0400 SaO2% (BldA) [Mass fraction] 95 % Dr. Shira Pavon MD Work Phone: [facility] 07-31-2024 14:59-0400 Systolic blood pressure 116 mm[Hg] Dr. Shira Pavon MD Work Phone: [facility] 07-24-2024 15:37-0400 Body mass index (BMI) [Ratio] 21.1 kg/m2 Dr. Shira Pavon MD Work Phone: [facility] 07-24-2024 15:37-0400 Body temperature 98.5 [degF] Dr. Shira Pavon MD Work Phone: [facility] 07-24-2024 15:37-0400 Body weight 64.[address] Shira Pavon MD Work Phone: [facility] 07-24-2024 15:37-0400 Diastolic blood pressure 84 mm[Hg] Dr. Shira Pavon MD Work Phone: [facility] 07-24-2024 15:37-0400 Heart rate 82 /min Dr. Shira Pavon MD Work Phone: [facility] 07-24-2024 15:37-0400 Respiratory rate 18 /min Dr. Shira Pavon MD Work Phone: [facility] 07-24-2024 15:37-0400 SaO2% (BldA) [Mass fraction] 94 % Dr. Shira Pavon MD Work Phone: [facility] 07-24-2024 15:37-0400 Systolic blood pressure 146 mm[Hg] Dr. Shira Pavon MD Work Phone: [facility] 01-03-2023 14:02-0400 Body height 175.[address] Shira Pavon Work Phone: [facility] 01-03-2023 14:02-0400 Body mass index (BMI) [Ratio] 21.4 kg/m2 Dr. Shira Pavon Work Phone: [facility] 01-03-2023 14:02-0400 Body temperature 98.9 [degF] Dr. Shira Pavon Work Phone: [facility] 01-03-2023 14:02-0400 Body weight 65.[address] Shira Pavon Work Phone: [facility] 01-03-2023 14:02-0400 Diastolic blood pressure 58 mm[Hg] Dr. Shira Pavon Work Phone: [facility] 01-03-2023 14:02-0400 Heart rate 48 /min Dr. Shira Pavon Work Phone: [facility] 01-03-2023 14:02-0400 Respiratory rate 16 /min Dr. Shira Pavon Work Phone: [facility] 01-03-2023 14:02-0400 SaO2% (BldA) [Mass fraction] 96 % Dr. Shira Pavon Work Phone: [facility] 01-03-2023 14:02-0400 Systolic blood pressure 119 mm[Hg] Dr. Shira Pavon Work Phone: [facility] 10-02-2022 15:49-0400 Body height 175.[address] Shira Pavon Work Phone: [facility] 10-02-2022 15:49-0400 Body mass index (BMI) [Ratio] 21.7 kg/m2 Dr. Shira Pavon Work Phone: [facility] 10-02-2022 15:49-0400 Body temperature 98.2 [degF] Dr. Shira Pavon Work Phone: [facility] 10-02-2022 15:49-0400 Body weight 66.[address] Shira Pavon Work Phone: [facility] 10-02-2022 15:49-0400 Diastolic blood pressure 76 mm[Hg] Dr. Shira Pavon Work Phone: [facility] 10-02-2022 15:49-0400 Heart rate 80 /min Dr. Shira Pavon Work Phone: [facility] 10-02-2022 15:49-0400 Respiratory rate 16 /min Dr. Shira Pavon Work Phone: [facility] 10-02-2022 15:49-0400 SaO2% (BldA) [Mass fraction] 95 % Dr. Shira Pavon Work Phone: [facility] 10-02-2022 15:49-0400 Systolic blood pressure 126 mm[Hg] Dr. Shira Pavon Work Phone: [facility] 01-17-2022 14:00-0400 Body height 175.[address] Shira Pavon Work Phone: [facility] Work Phone: 01-17-2022 13:54-0400 Body mass index (BMI) [Ratio] 21.6 kg/m2 Dr. Shira Pavon Work Phone: [facility] Work Phone: 01-17-2022 13:54-0400 Body temperature 98.2 [degF] Dr. Shira Pavon Work Phone: [facility] Work Phone: 01-17-2022 13:54-0400 Body weight 66.[address] Shira Pavon Work Phone: [facility] Work Phone: 01-17-2022 13:54-0400 Diastolic blood pressure 70 mm[Hg] Dr. Shira Pavon Work Phone: [facility] Work Phone: 01-17-2022 13:54-0400 Heart rate 53 /min Dr. Shira Pavon Work Phone: [facility] Work Phone: 01-17-2022 13:54-0400 Respiratory rate 15 /min Dr. Shira Pavon Work Phone: [facility] Work Phone: 01-17-2022 13:54-0400 SaO2% (BldA) [Mass fraction] 96 % Dr. Shira Pavon Work Phone: [facility] Work Phone: 01-17-2022 13:54-0400 Systolic blood pressure 126 mm[Hg] Dr. Shira Pavon Work Phone: [facility] Work Phone: 05-24-2019 05:15-0500 Body temperature 99.5 [degF] Ronal Serra MD Work Phone: [facility] Work Phone: 05-24-2019 05:15-0500 Diastolic blood pressure 70 mm[Hg] Ronal Serra MD Work Phone: [facility] Work Phone: 05-24-2019 05:15-0500 Heart rate 65 /min Ronal Serra MD Work Phone: [facility] Work Phone: 05-24-2019 05:15-0500 Respiratory rate 18 /min Ronal Serra MD Work Phone: [facility] Work Phone: 05-24-2019 05:15-0500 SaO2% (BldA) [Mass fraction] 94 % Ronal Serra MD Work Phone: [facility] Work Phone: 05-24-2019 05:15-0500 Systolic blood pressure 124 mm[Hg] Ronal Serra MD Work Phone: [facility] Work Phone: 05-22-2019 03:40-0500 Body height 157.5 cm Ronal Serra MD Work Phone: [facility] Work Phone: 05-22-2019 03:40-0500 Body mass index (BMI) [Ratio] 28.35 kg/m2 Ronal Serra MD Work Phone: [facility] Work Phone: 05-22-2019 03:40-0500 Body weight 70.31 kg Ronal Serra MD Work Phone: [facility] Work Phone: Encounters Encounter Date Encounter Type Care Provider Facility Start: 03-24-2025 End: 03-24-2025 Telephone encounter Gallo Thakkar MD Work Phone: [facility] Start: 03-23-2025 End: 03-23-2025 ambulatory Shira Pavon Facility:[facility] Start: 03-12-2025 Encounter for other preprocedural examination [facility] Start: 03-12-2025 ambulatory [facility] Facility:[facility] Start: 03-09-2025 Encounter for other preprocedural examination [facility] Start: 03-09-2025 End: 03-09-2025 ambulatory Shira Pavon Facility:[facility] Start: 03-03-2025 ambulatory SHIRA PAVON [facility] Start: 02-24-2025 End: 02-24-[address] Clement Lewis MD -[facility] Work Phone: Start: 02-24-2025 End: 02-24-[address] Shira Pavon MD Work Phone: [facility] Start: 02-16-[address] Clement Lewis MD -[facility] Start: 02-16-2025 End: 02-16-2025 Patient encounter procedure Billie SanchezQuang DOLL SURGEON-C -[facility] Work Phone: Start: 02-16-2025 End: 02-16-[address] Shira Pavon MD Work Phone: [facility] Start: 02-10-[address] Clement Lewis MD -[facility] Start: 02-09-2025 End: 02-09-2025 Patient encounter procedure Billie SanchezQuang DOLL SURGEON-C -[facility] Work Phone: Start: 02-09-2025 End: 02-09-[address] Shira Pavon MD Work Phone: [facility] Start: 01-26-[address] Clement Lewis MD -[facility] Start: 01-26-2025 End: 01-26-[address] Clement Lewis MD -[facility] Work Phone: Start: 01-26-2025 End: 01-26-[address] Shira Pavon MD Work Phone: [facility] Start: 01-20-2025 End: 01-20-2025 Patient encounter procedure DOLL SURGEON Idania Botello -[facility] Work Phone: Start: 01-20-2025 End: 01-20-[address] Shira Pavon MD Work Phone: [facility] Start: 01-15-[address] Clement Lewis MD -[facility] Start: 01-14-[address] Clement Lewis MD -[facility] Start: 01-14-2025 End: 01-14-2025 Patient encounter procedure Billie SanchezQuangstephanie OLIVERA -[facility] Work Phone: Start: 01-14-2025 End: 01-14-[address] Shira Pavon MD Work Phone: -[facility] Start: 12-31-[address] Clement Lewis MD -[facility] Start: 12-31-2024 End: 12-31-[address] Demetra Sotelo MD -[facility] Work Phone: Start: 12-31-2024 End: 12-31-[address] Shira Pavon MD Work Phone: -[facility] Start: 12-26-2024 End: 12-26-2024 ambulatory SHIRA PAVON [facility] Start: 12-25-2024 ambulatory Gallo Bailey Facility: [facility] Start: 12-23-2024 End: 12-23-[address] Gallo Bailey MD -[facility] Work Phone: Start: 12-23-2024 End: 12-23-[address] Shira Pavon MD Work Phone: -[facility] Start: 12-23-2024 End: 12-23-2024 Emergency department patient visit Dr. Shira Pavon MD Work Phone: -Emergency Department Work Phone: Start: 12-18-[address] Clement Lewis MD -[facility] Start: 12-17-[address] Clement Lewis MD -[facility] Start: 12-17-2024 End: 12-17-[address] Clement Lewis MD -[facility] Work Phone: Start: 12-17-2024 End: 12-17-[address] Shira Pavon MD Work Phone: -[facility] Start: 12-04-2024 End: 12-04-[address] Clement Lewis MD [facility] Work Phone: Start: 12-04-2024 End: 12-04-[address] Shira Pavon MD Work Phone: [facility] Start: 12-03-2024 End: 12-03-2024 Patient encounter procedure DOLL SURGEON Idania Botello -[facility] Work Phone: Start: 12-03-2024 End: 12-03-[address] Shira Pavon MD Work Phone: -[facility] Start: 11-28-2024 ambulatory Magdi Strauss Facility: [facility] Start: 11-28-2024 Non-patient / Non-visit Dr. Magdi hayward DO -[facility] Start: 11-27-2024 End: 11-27-[address] Shira Pavon MD Work Phone: -Pulmonary Services/Neurology Start: 11-27-2024 End: 11-27-[address] Magdi Strauss DO -[facility] Services/Neurology Work Phone: Start: 11-26-2024 End: 11-27-[address] Shira Pavon MD Work Phone: -[facility] Services/Neurology Start: 11-26-2024 End: 11-26-[address] Magdi Strauss DO -Pulmonary Services/Neurology Work Phone: Start: 11-26-2024 End: 11-26-2024 ambulatory Shira Pavon Facility:[facility] Start: 11-20-2024 End: 11-20-2024 Patient encounter procedure Billie Del Rio DOLL SURGEON-C -Cat Scan [facility] Work Phone: Start: 11-20-2024 End: 11-20-[address] Shira Pavon MD Work Phone: -Cat Scan [facility] Start: 11-13-2024 End: 11-13-2024 Patient encounter procedure Billie Del Rio NP-Larry -[facility] Work Phone: Start: 11-13-2024 End: 11-13-[address] Shira Pavon MD Work Phone: -[facility] Start: 11-12-2024 End: 11-12-[address] Magdi Strauss DO -[facility] Work Phone: Start: 11-12-2024 End: 11-12-[address] Shira Pavon MD Work Phone: -[facility] Start: 11-04-[address] Clement Lewis MD -[facility] Start: 10-30-[address] Clement Lewis MD -[facility] Start: 10-30-2024 End: 10-30-[address] Clement Lewis MD -[facility] Work Phone: Start: 10-30-2024 End: 10-30-[address] Shira Pavon MD Work Phone: [facility] Work Phone: Start: 10-02-2024 End: 10-02-[address] Clement Lewis MD -[facility] Work Phone: Start: 10-02-2024 End: 10-02-2024 ambulatory Shira Pavon Facility:[facility] Start: 09-19-2024 End: 09-19-2024 ambulatory SHIRA PAVON [facility] Start: 09-03-2024 End: 09-03-[address] Jose Shaw MD -[facility] Work Phone: Start: 09-03-2024 End: 09-03-2024 ambulatory Shira Pavon Facility:[facility] Start: 07-31-2024 End: 07-31-[address] Clement Lewis MD -[facility] Work Phone: Start: 07-31-2024 End: 07-31-2024 ambulatory Shira Pavon Facility:[facility] Start: 07-24-2024 End: 07-24-[address] Clement Lewis MD -[facility] Work Phone: Start: 07-24-2024 End: 07-24-2024 ambulatory Shira Pavon Facility:[facility] Start: 07-13-2024 End: 07-18-2024 Evaluation and management of inpatient ANGELIC GARSIA MD Facility:[facility] Start: 07-13-2024 End: 07-13-2024 Emergency department patient visit SHIRA DE LA CRUZ [facility] Start: 03-05-2024 End: 03-05-2024 ambulatory SHIRA DE LA CRUZ [facility] Start: 03-05-2024 End: 03-07-2024 ambulatory SHIRA DE LA CRUZ [facility] Start: 01-22-2023 End: 01-22-[address] Shira Pavon Work Phone: [facility] Work Phone: Start: 01-22-2023 End: 01-22-[address] Shira Pavon Work Phone: [facility]-Laboratory Work Phone: Start: 01-18-2023 End: 01-18-[address] Shira Pavon Work Phone: [facility]-Radiology, [facility] Work Phone: Start: 01-03-[address] Abdulaziz Pavon Work Phone: [facility] Start: 01-03-2023 End: 01-03-[address] Shira Pavon Work Phone: [facility] Work Phone: Start: 12-25-2022 End: 12-25-[address] Shira Pavon Work Phone: [facility] Work Phone: Start: 12-25-2022 End: 12-25-[address] Shira Pavon Work Phone: [facility]-Cat Scan, [facility] Work Phone: Start: 10-02-[address] Abdulaziz Pavon Work Phone: [facility] On[facility] Start: 10-02-2022 End: 10-02-[address] Shira Pavon Work Phone: [facility] Work Phone: Start: 04-25-2022 End: 04-25-[address] Shira Pavon Work Phone: [facility] Work Phone: Start: 04-25-2022 End: 04-25-[address] Shira Pavon Work Phone: [facility]-Laboratory Start: 01-17-[address] Abdulaziz Pavon Work Phone: [facility] Start: 01-17-2022 End: 01-17-[address] Shira Pavon Work Phone: [facility] Start: 05-22-2019 End: 05-24-2019 Evaluation and management of inpatient Ronal Serra MD Work Phone: [facility] Comment on above: Dysphagia, unspecifi ed type (Primary Dx); Septicemia (HCC); Food impaction of esophagus, initial encounter Procedures Date Procedure Procedure Detail Performing Clinician Start: 03-09-2025 Prostate specific antigen measurement Dr. Shira Pavon MD Work Phone: Comment on above: This test was performed using the [employer] tPSA method. Measured values of a patient sample can vary depending on the testing procedure used. PSA values determined on patient samples by different testing procedures cannot be used interchangeably. If there is a change in PSA assays while monitoring therapy, sequential testing should be performed to confirm baseline values. Start: 03-09-[address] Abdulaziz Pavon MD Work Phone: Start: 03-09-2025 Serum inorganic phosphate measurement Dr. Shira Pavon MD Work Phone: Start: 02-24-[address] Shira Pavon MD Work Phone: Start: 02-24-[address] Shira Pavon MD Work Phone: Start: 02-24-2025 Urnls dip stick/tablet reagent auto microscopy Dr. Shira Pavon MD Work Phone: Start: 02-16-2025 Urnls dip stick/tablet reagent auto microscopy Dr. Shira Pavon MD Work Phone: Start: 02-16-2025 Radiologic exam chest [address] Shira Pavon MD Work Phone: Start: 02-16-2025 Sean-Malave virus capsid IgG measurement Dr. Shira Pavon MD Work Phone: Comment on above: Negative <18.0 Equivocal 18.0 - 21.9 Pos itive >21.9Performed at: [address] [id number] Director: Rolando Vega PhD, Phone: [phone] Start: 02-16-2025 Hepatitis A virus antibody, IgM type Dr. Shira Pavon MD Work Phone: Comment on above: A negative anti-HAV IgM result suggests no recent orcurrent HAV infection. Start: 02-16-2025 Hepatitis B core antibody measurement, IgM type Dr. Shira Pavon MD Work Phone: Start: 02-16-2025 Hepatitis C antibody measurement Dr. Vonnie Pavon MD Work Phone: Start: 02-16-2025 Serologic test for syphilis Dr. Shira rashid MD Work Phone: Start: 02-16-[address] Abdulaziz Pavon MD Work Phone: Start: 02-16-[address] Shira Pavon MD Work Phone: Start: 02-16-[address] Shira Pavon MD Work Phone: Start: 02-09-2025 Albumin/Globulin ratio Dr. Shira Pavon MD Work Phone: Start: 02-09-[address] Abdulaziz Pavon MD Work Phone: Start: 02-09-[address] Immun[address] M measurement Dr. Shira Pavon MD Work Phone: Comment on above: Result confirmed on concentration. Start: 02-09-[address] 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 B-cells are negarive for CD20 expression, which can be seen inpatient with anti-CD20 therapy. Clinical correlation is recommended.Multiple previous flow cytometry results have been reviewed.Clinical Information Comment -Y Reference Range: .A recent CBC was not available for review at the time this report wasprepared.Specimen Type Comment -Y Reference Range: .Peripheral bloodAssessment of Leukocytes Comment -Y Reference Range: .A CD5+/CD23+/CD38+ (79%) monoclonal B cell population is detected with dimkappa light chain restriction, representing 99% of B-cells and 1% ofleukocytes, immunophenotype consistent with chronic lymphocyticleukemia/small lymphocytic lymphoma. CD11c expression cannot be reliablyassessed. Clonal B-cells are negative for CD20 expression. Expression ofCD38 on >30% of the clonal B-cells is reported to be an unfavorableprognostic factor in CLL.CD4:CD8 ratio 0.621% of T cells show loss of CD7 expression, a finding that can be seen inboth reactive and neoplastic processes. If clinically indicated, T-cellreceptor gene rearrangement study can be performed to confirm or exclude aclonal T-cell process.No circulating blasts are detected.There is no immunophenotypic evidence of abnormal myeloid maturation.15% eosinophils are detected.Analysis of the leukocyte population shows: granulocytes 78%, (includingeosinophils 15%) monocytes 9%, lymphocytes 13%, blasts <0.1%, B cells 1%, Tcells 12%, NK cells <1%.Viability Comment -Y Reference Range: .90%Immunophenotypic Profile Comment -Y Reference Range: .Abnormal cell population: present-1% of total cells (Phenotype below)Analysis and Gating Strategy Comment -Y Reference Range: .8 color analysis with CD45/SSC gating Technical-Analysis performed at [place] [address], youwho [facility], [address], [facility] [address], Director: Dax Kumari, [facility], Phenotype Chart Comment -Y Reference Range: .CD2 (-) CD3 (-)CD4 (-) CD5 (+)CD7 (-) CD8 (-)CD10 (-) CD11b (-)CD11c See Text CD13 (-)CD14 (-) CD15 (-)CD16 (-) CD19 (+)CD20 (-) CD22 (+) DimCD23 (+) CD33 (-)CD34 (-) CD38 (+)CD45 (+) CD56 (-)CD57 (-) CD64 (-)CD103 (-) CD117 (-)FMC-7 (-) HLA-DR (+)KAPPA (+) Dim LAMBDA (-)Resulting Path Name Comment -Y Reference Range: .Beena Lopez M.D. Ph.DComment: Comment TG Reference Range: .Each antibody in this assay was utilized to assess forpotential abnormalities of studied cell populations or tocharacterize identified abnormalities.This test was developed and its performance characteristicsdetermined by [employer]. It has not been cleared or approvedby the U.S. Food and Drug Administration.The FDA has determined that such clearance or approval isnot necessary. This test is used for clinical purposes. Itshould not be regarded as investigational or for research.Performed at: -Y - [facility] [id number] [facility], [place], [place] [id number] Director: Dax Kumari [facility], Phone: [phone] at: - [facility] [id number] [facility], [place], [place] [id number] Director: Dax Kumari [facility], Phone: [phone] at: [address] [id number] Director: Rolando Vega PhD, Phone: [phone] Test Ordered: [id number] CLL FISH PanelSpecimen Type Comment: LUI Reference Range: .BLOODCells Counted Comment: LUI Reference Range: .200/PROBECells Analyzed Comment: LUI Reference Range: .200/PROBEFISH Result Comment: LUI Reference Range: .NORMAL CLL PANELInterpretation Comment: LUI Reference Range: . The CLL interphase fluorescence in situ hybridization(FISH) panel analysis was normal. There were no cells withCCND1-IGH fusion. No extra signals or deletions of JOEL,chromosome 12, 13q, or TP53 were observed. SPECIFIC FISH RESULTS: CCND1/IGH: NORMAL . nuc afua 11q13(DUVD9p5),14q32(IGHx2)[200] JOEL: NORMAL nuc afua 11q22.3(ATMx2)[200]. 12cen: NORMAL . nuc afua 12cen(O54U8x4)[200]. 13q: NORMAL . nuc afua 13q14.3(DLEUx2),13q34(BILG3l0)[200]. TP53: NORMAL . nuc afua 17p13.1(TP53x2)[200] This analysis is limited to abnormalities detectableby the specific probes included in the study. The TargetGeneFISH results should be interpreted within the context of afull cytogenetic analysis and hematologic evaluation. TheDNA probe vendor for this study was [employer] ([employer]). REFERENCES:. Susi,(2013) Adv Exp Med Biol 792:193-214.PMID#[id number] . Marcela et al.,(2011) Clin Lab Med31:649-658.PMID#[id number] This test was developed and its performacecharacteristics determined by [employer] ([employer]). It has not been cleared orapproved by the U.S. Food and Drug Administration. Technical Component-Processing performed at [address] [place], [place] [address], [place] [address], [facility] [id number]. Psychologist Experimental, Dax Kumari M.D., Ph.D. Technical analysis performed at [employer]. [address] [place] [address]. CLIA# [id number]. Psychologist Experimental Dr. Megan Veloz M.D.,Ph.D. Technical Component-Partial chromosome analysisperformed at [id number], [facility] [address] [address], [id number]. Psychologist Experimental, Dax Kumari M.D., Ph.D.Director Review: Comment: Reference Range: .TIFFANIE MAHAJAN, PhD, [facility], Professional Component performedby, [id number], youwho [facility],CLIA [id number], [address] [place] [address].Psychologist Experimental, Dax Kumari MD,PhDPerformed at: [facility] [id number] [facility] [place], [place] [id number] Director: Dax Kumari [facility], Phone: [phone] at: [address] [id number] Director: Rolando Vega PhD, Phone: [phone] Test Ordered: [id number] Chromosome, Leukemia/LymphomaSpecimen Type Comment: LUI Reference Range: .BLOODCells Counted 0 LUI Reference Range: .Cells Analyzed 0 LUI Reference Range: .Cells Karyotyped 0 Reference Range: .GTG Band Resolution Achieved N/A LUI Reference Range: .Cytogenetic Result Comment: LUI Reference Range: .NO MITOTIC ACTIVITYInterpretation Comment: Reference Range: .NO RESULT . Cytogenetic analysis of GTG banded metaphases fromunstimulated cultures revealed no mitotic activity. Thesample submitted appeared to be blood. Generally, 5% blastsin the peripheral circulation are necessary to obtaincytogenetic results. Bone marrow is recommended for theanalysis of disorders with blasts below that percentage. Interphase FISH analysis using indication specifictargeted probes or a whole genome SNP microarray (test neic085897) may be considered. The [email or web address] multi-genegenomic next generation sequencing panel (test code 267980)may also be considered. Testing can be performed on aresidual sample, if available.Director Review: Comment: Reference Range: .HOME BOUDREAUX, PhD, [facility], Professional Component anika, [facility], [employer], [place]#[id number], [address] [place] [address],Psychologist Experimental Yris Flower MD.Performed at: [facility] [id number] [facility], [facility], [place] [id number] Director: Dax Kumari [facility], Phone: [phone] at: [facility] [address] [facility] [id number] Director: Rolando Vega PhD, Phone: [phone] Start: 02-09-2025 Urine lambda light chain measurement Dr. Shira Pavon MD Work Phone: Start: 01-26-[address] Abdulaziz Pavon MD Work Phone: Start: 01-14-[address] Abdulaziz Pavon MD Work Phone: Start: 12-31-[address] Abdulaziz Pavon MD Work Phone: Comment on above: Previous reported result: 53.66 ml/minEd ited by: AUTOINS on 12/31/24:923 AMENDED REPORT 12/31/24923 Estimated CRCL previously reported as: 53.66 ml/min Start: 12-26-2024 Urinalysis SHIRA PAVON Comment on above: Result Comment: URINALYSIS Performed By: #### 2 [id number] #### [facility],[address] [address] Start: 12-23-2024 X-ray of chest, PA and lateral views Dr. Shira Pavon MD Work Phone: Start: 12-23-[address] Abdulaziz Pavon MD Work Phone: Start: 12-17-[address] Abdulaziz Pavon MD Work Phone: Comment on above: Previous reported result: 52.64 ml/minEd ited by: ARELIS on 12/17/24:0831 AMENDED REPORT 12/17/24 08 Estimated CRCL previously reported as: 52.64 ml/min Start: 11-20-2024 Plain chest X-ray Dr. Shira Pavon MD Work Phone: Start: 11-20-2024 Plain chest X-ray Dr. Shira Pavon MD Work Phone: Start: 11-20-2024 Biopsy/Inj or Needle Placement Dr. Abdulaziz Pavon MD Work Phone: Start: 11-04-2024 Positron emission tomography with computed tomography Dr. Shira Pavon MD Work Phone: Start: 10-30-2024 Hepatitis B surface antibody measurement Dr. Shira Pavon MD Work Phone: Start: 10-16-2024 Albumin/Globulin ratio Dr. Shira Pavon MD Work Phone: Start: 10-16-[address] Abdulaziz Pavon MD Work Phone: Start: 10-16-2024 Immunoglob[address] M measurement Dr. Shira Pavon MD Work Phone: Comment on above: Result confirmed on concentration. Start: 10-16-[address] Shira Pavon MD Work Phone: Comment on above: Test Ordered: [id number] Flow panel: Leukemi a/LymphomaFlow Interpretation Comment -Y Reference Range: .Chronic lymphocytic leukemia (CLL), clonal B cells representing 86% ofleukocytes, positive for CD20, CD22, CD19 and CD38, see comment.Flow Comment Comment -Y Reference Range: .Expression of CD38 on >30% of the clonal B-cells is reported to be anunfavorable prognostic factor in CLL. Investigation of TP53 aberrations bysequencing is warranted prior to each course of therapy. (Genomic profilingfor clinical decision making in lymphoid neoplasms, Blood, January 04, 2022)Prior flow cytometry results have been reviewed and showed similarfindings.Clinical Information Comment -Y Reference Range: .A recent CBC was not available for review at the time this report wasprepared.Specimen Type Comment -Y Reference Range: .Peripheral bloodAssessment of Leukocytes Comment -Y Reference Range: .A CD5 and CD23 positive monoclonal B cell population is detected with kappalight chain restriction, positive for CD38 (88%), negative for FMC7,representing 86% of leukocytes and 100% of B cells, > 5,000/uL.There is no loss of, or aberrant expression of, the skinner T cell antigens tosuggest a neoplastic T cell process.CD4:CD8 ratio 0.8No circulating blasts are detected.There is no immunophenotypic evidence of abnormal myeloid maturation.Analysis of the leukocyte population shows: granulocytes 7%, monocytes 2%,lymphocytes 91%, blasts <0.1%, B cells 86%, T cells 5%, NK cells <1%.Viability Comment -Y Reference Range: .94%Immunophenotypic Profile Comment -Y Reference Range: .Abnormal cell population: present-86% of total cells (Phenotype below)Analysis and Gating Strategy Comment -Y Reference Range: .8 color analysis with CD45/SSC gating Technical-Analysis performed at [facility], [employer], [address] [place] [address], Director: Dax Kumari, [facility], Phenotype Chart Comment -Y Reference Range: .CD2 (-) CD3 (-)CD4 (-) CD5 (+)CD7 (-) CD8 (-)CD10 (-) CD11b (-)CD11c (+) CD13 (-)CD14 (-) CD15 (-)CD16 (-) CD19 (+) DimCD20 (+) Dim CD22 (+) DimCD23 (+) CD33 (-)CD34 (-) CD38 (+)CD45 (+) CD56 (-)CD57 (-) CD64 (-)CD103 (-) CD117 (-)FMC-7 (-) HLA-DR (+)KAPPA (+) LAMBDA (-)Resulting Path Name Comment -Y Reference Range: .Juan Carlos Hernandez M.D.Comment: Comment TG Reference Range: .Each antibody in this assay was utilized to assess forpotential abnormalities of studied cell populations or tocharacterize identified abnormalities.This test was developed and its performance characteristicsdetermined by [facility]. It has not been cleared or approvedby the U.S. Food and Drug Administration.The FDA has determined that such clearance or approval isnot necessary. This test is used for clinical purposes. Itshould not be regarded as investigational or for research.Performed at: -Y - [facility] [id number] [employer] [place], [place] [id number] Director: Dax Kumari [facility], Phone: [phone] at: [facility] [id number] [facility], [place] [id number] Director: Dax Kumari [facility], Phone: [phone] at: [address] [id number] Director: Rolando Vega PhD, Phone: [phone] TEST RESULTS LIMITSI GHV Somatic Hypermutation Interpretation: Client Specimen ID: Not Given IGHV Somatic Hypermutation was not detected. DISCLAIMER: REFER TO HARDCOPY OR PDF FOR COMPLETE RESULT. If synopsis provided, clinical decisions should not be based on this interfaced synopsis alone. TESTING PERFORMED AT [facility]. ORIGINAL REPORT ON FILE IN LAB CONTAINS ADDITIONAL TEST SITE INFORMATION. Scanned image report available in EMR Sent directly to [facility] per ordering physician. Start: 10-16-2024 Urine lambda light chain measurement Dr. Shira Pavon MD Work Phone: Start: 09-03-2024 Evaluation of diagnostic study results Dr. Shira Pavon MD Work Phone: Start: 07-13-2024 Urinalysis SHIRA PAVON Comment on above: Result Comment: URINALYSIS Performed By: #### 2 [id number] #### [facility],[address] [place], [place] [id number] Start: 03-19-[address] Abdulaziz Pavon MD Work Phone: Start: 03-19-[address] Shira allison MD Work Phone: Comment on above: Performed at: [facility] [place] [id number] [address] Director: Rolando Vega PhD, Phone: [phone] Start: 03-19-2024 Measurement of renal function Dr. Shira Pavon MD Work Phone: Comment on above: GFR Calc Start: 03-05-2024 Urinalysis SHIRA PAVON Comment on above: Result Comment: URINALYSIS Performed By: #### 2 [id number] #### [facility],[address] [place], [place] [id number] Start: 01-18-[address] Shira motta Work Phone: Start: 12-25-2022 CT of chest and abdomen Dr. Shira Pavon Work Phone: Start: 12-25-2022 CT of soft tissues of neck with contrast Dr. Shira Pavon Work Phone: Start: 05-27-2019 Microscopic examination of blood, culture Comment on above: Order Comment: Specimen Source Comment:B lood Performed By: #### L ACT3, HEMOG, LFT3, BMP3, PT, PCAL #### [facility] [address] [place] [address] Start: 05-24-2019 Basic metabolic panel calcium total Amber Cobb MD Work Phone: Start: 05-23-2019 BASIC METABOLIC PANEL W/ REFLEX TO MG FOR LOW K Nataliya Eid DO Work Phone: Start: 05-23-2019 Blood count complete automated Nataliya Eid DO Work Phone: Start: 05-22-2019 Radiologic exam esophagus single contrast study Ronda Urbano MD Work Phone: Start: 05-22-2019 OPERATIVE REPORT 3m Scanning Start: 05-22-2019 Antibody screen Ronal Serra MD Work Phone: Comment on above: Test Performed by [facility], [address] [place] [address] Start: 05-22-2019 HM ENDOSCOPY REPORT 3m Scanning Start: 05-22-2019 Blood typing serologic abo Julio peters MD Work Phone: Start: 05-22-2019 ADD ON LAB TEST Julio Lorenzana MD Work Phone: Start: 05-22-2019 End: 05-22-2019 Culture bacterial blood aerobic w/id isolates Ronal Serra MD Work Phone: Start: 05-22-2019 Basic metabolic panel calcium total Ronal Serra MD Work Phone: Start: 05-22-2019 Hepatic function panel Ronal Serra MD Work Phone: Start: 05-22-2019 Radiologic exam chest single view Ronal Srera MD Work Phone: Plan of Treatment Date Care Activity Detail Author Start: 03-27-2025 End: 03-27-2025 Patient encounter procedure 03/27/2025 9:00 AM EST Office Visit [facility] [place] [address] [place] [id number] Gallo Thakkar MD [address] [place] [address] [facility] Start: 03-12-2025 Partial thromboplast in time, activated [facility] Start: 03-12-2025 Prothrombin time [facility] Start: 03-12-2025 [facility] Start: 03-09-2025 Bone marrow biopsy, needle or trocar [facility] Start: 03-09-2025 Registered Recurring Registered Recu rring -[facility] Start: 03-09-2025 IgG [Mass/volume] in Serum or Plasma [facility] Start: 03-09-2025 End: 03-09-2025 Patient encounter procedure CLL (chronic lymphocytic leukemia) -[facility] Work Phone: Start: 03-03-2025 PET study for locali zation of tumor PET/CT Tumor Base -Thigh Subs [facility] Start: 02-16-2025 End: 02-16-2025 [facility] Start: 02-16-2025 Acute hepatitis 2000 panel - Serum [facility] Start: 02-16-2025 Sean Malave virus c apsid IgG Ab [Units/volume] in Serum [facility] Start: 02-16-2025 [facility] Start: 02-16-2025 Bacteria identified in Blood by Culture Blood Culture [facility] Start: 02-16-2025 Bacteria identified in Urine by Culture Urine Culture [facility] Start: 02-16-2025 [facility] Start: 02-09-2025 Immunoglobulin measurement [facility] Start: 02-09-2025 Procedure [facility] Start: 02-09-2025 Serum immunofixation [facility] Start: 02-09-2025 [facility] Start: 01-26-2025 [facility] Start: 01-14-2025 Lactate dehydrogenas e measurement [facility] Start: 01-14-2025 Serum inorganic phos phate measurement [facility] Start: 01-14-2025 [facility] Start: 01-12-2025 COVID-19 Vaccine ( season) COVID-19 Vaccine ( season) [facility] Start: 01-12-2025 Influenza vaccination Influenza Vacc ine (#1) [facility] Start: 12-31-2024 [facility] Start: 12-23-2024 [facility] Start: 12-17-2024 [facility] Start: 11-20-2024 CORE NDL BX LNG/MED PERQ CORE NDL BX LNG/MED PERQ [facility] Start: 11-20-2024 Following clinical p athway protocol [facility] Start: 11-20-2024 Catheterization of vein [facility] Start: 11-20-2024 Oxygen therapy [facility] Start: 11-20-2024 Patient discharge [facility] Start: 11-20-2024 Vital signs measurements [facility] Start: 11-17-2024 Lactate dehydrogenas e measurement [facility] Start: 11-04-2024 Positron emission tomography with computed tomography [facility] Start: 10-30-2024 End: 10-30-2024 [facility] Start: 10-16-2024 Procedure [facility] Start: 05-14-2024 Medicare Advantage A nnual Wellness Visit Medicare Advantage Annual Wellness Visit [facility] Start: 12-27-2020 DTaP/Tdap/Td Vaccine s (2 - Td or Tdap) DTaP/Tdap/Td Vaccines (2 - Td or Tdap) [facility] Start: 05-24-2020 Creatinine measurement Creatinine Le rupinder [facility] Start: 05-24-2020 Potassium measurement Potassium Leve l [facility] Start: 05-23-2019 Annual Wellness Visi t (AWV) Annual Wellness Visit (AWV) [facility] Work Phone: Start: 01-12-2019 Influenza vaccination Flu vaccine (# 1) [facility] Work Phone: Start: 11-04-2012 Pneumococcal 65+ yea rs Vaccine (1 of 1 - PPSV23) Pneumococcal 65+ years Vaccine (1 of 1 - PPSV23) [facility] Work Phone: Start: 11-04-1997 Colon cancer screen colonoscopy Colon cancer screen colonoscopy [facility] Work Phone: Start: 11-04-1997 Shingles Vaccine (1 of 2) Workman gles Vaccine (1 of 2) [facility] Work Phone: Start: 11-04-1997 Zoster Vaccines (1 of 2) Zoster Vacc vinnie (1 of 2) [facility] Start: 11-04-1965 Hepatitis C screening Hepatitis C Sc reening [facility] Start: 1959 Depression Screening Depression Scre ening [facility] Start: 11-04-1958 DTaP/Tdap/Td vaccine (1 - Tdap) DTaP/Tdap/Td vaccine (1 - Tdap) [facility] Work Phone: Start: 11-04-1957 Lipid screen Lipid screen [facility] Work Phone: Start: 1947 AAA screen AAA screen [facility] Work Phone: Start: 1945 Echocardiography Echocardiogram [facility] Start: 1947 Hepatitis C screen Hepatitis C scree n [facility] Work Phone: Start: 1947 Lipid panel Lipid Panel [facility] End: 05-22-2019 Add On Lab Test [facility] Work Phone: Comment on above: One Time for 1 Occur rences starting 05/22/2019 until 05/22/2019 Albumin [Moles/volum e] in Serum or Plasma [facility] Albumin/Globulin ratio [facility] Basic metabolic 2008 panel with ionized calcium - Serum or Plasma [facility] End: 05-24-2019 CBC W Auto Differential panel - Blood CBC Auto Differential Lab Add-On Daily for 1 Occurrences starting 05/24/2019 until 05/24/2019 [facility] Work Phone: Comment on above: Daily for 1 Occurren sofía starting 05/24/2019 until 05/24/2019 CBC W Auto Different ial panel - Blood [facility] Work Phone: CBC W Auto Different ial panel - Blood [facility] CBC W Auto Different ial panel - Blood [facility] CBC W Auto Different ial panel - Blood [facility] CBC W Auto Different ial panel - Blood [facility] CBC W Auto Different ial panel - Blood [facility] CBC W Auto Different ial panel - Blood [facility] Comprehensive metabo lic 1999 panel - Serum or Plasma [facility] Comprehensive metabo lic 1999 panel - Serum or Plasma [facility] Comprehensive metabo lic 1999 panel - Serum or Plasma [facility] CT Chest W contrast IV [facility] Culture Blood #1 Culture Blood # 1 Microbiology STAT 05/22/2019 4:21 AM EST [employer] Work Phone: Culture Blood #2 Culture Blood # 2 Microbiology STAT 05/22/2019 4:18 AM [employer] Work Phone: Electrophoresis: [id number] [facility] Electrophoresis: frank ma globulin [facility] Globulin measurement [facility] Hepatitis A virus Ig M Ab [Presence] in Serum [facility] Hepatitis B core ant ibody measurement, IgM type [facility] Hepatitis B surface antigen measurement [facility] Hepatitis B surface antigen measurement [facility] Hepatitis B virus co re Ab [Presence] in Serum [facility] Hepatitis B virus brewer rface Ab [Units/volume] in Serum by Radioimmunoassay (MARIA T) [facility] Hepatitis C antibody measurement [facility] IgA [Mass/volume] in Serum or Plasma [facility] IgG [Mass/volume] in Serum or Plasma [facility] IgM [Mass/volume] in Serum or Plasma [facility] Initiate Oxygen Ther apy Protocol Initiate Oxygen Therapy Protocol Respiratory Care Routine Daily until discontinued starting 05/22/2019 [employer] Work Phone: Comment on above: Daily until disconti nued starting 05/22/2019 [place]/lambda light c bryce ratio [facility] Laboratory data interpretation [facility] Lactate dehydrogenas e measurement [facility] Lactate dehydrogenas e measurement [facility] Lactate dehydrogenas e measurement [facility] Lactate dehydrogenas e measurement [facility] Lactate dehydrogenas e measurement [facility] Lambda light chains. free [Mass/volume] in Serum or Plasma [facility] LDH [facility] Work Phone: Magnesium measurement [facility] Measurement of respi ratory function [facility] Patient Education [facility] Work Phone: Positron emission tomography with computed tomography [facility] End: 05-22-2019 Procalcitonin Procalcitonin Lab Add-On One Time for 1 Occurrences starting 05/22/2019 until 05/22/2019 [facility] Work Phone: Comment on above: One Time for 1 Occur rences starting 05/22/2019 until 05/22/2019 Procedure [facility] Protein electrophore sis panel - Serum or Plasma [facility] PT Unspecified body region [facility] Serum inorganic phos phate measurement [facility] Urate [Mass/volume] in Serum or Plasma [facility] Urate [Mass/volume] in Serum or Plasma [facility] Urine culture [facility] Urine kappa light ch ain measurement [facility] Walking distance 6 minutes [address] [facility] Immunizations Immunization Date Immunization Notes Care Provider [facility] 02-19-2024 influenza virus vacc ine, unspecified formulation Gallo Thakkar MD Work Phone: [facility] Payers Date Payer Category Payer Medicare [id number] 2021 Medicare HMO [employer] MEDICARE [id number] 2021 Medicare [id number] 2021 Self-pay [id number] 2021 Unknown 0 2016 Medicare MEDICARE MEDICAR E PART A AND B xxxxxxxxxxx 2016-Present [phone] [place] [address] xxxxxxxxxxx [id number] 1945 Unknown [id number] 2.16.840.1.804172.3.579.2.627 1945 Unknown [id number] 2.16.840.1.885255.3.579.2.651 1945 Unknown [id number] 2.16.840.1.618344.3.579.2.651 1945 Unknown [id number] 2.16.840.1.566460.3.579.2.651 1945 Unknown [id number] 2.16.840.1.063513.3.579.2.651 1945 Unknown [id number] 2.16.840.1.882097.3.579.2.651 1945 Unknown [id number] 2.16.840.1.205963.3.579.2.651 Unknown [facility] [id number] Unknown [id number] 2.16.840.1.935268.3.579.2.462 Unknown [id number] 2.16.840.1.090679.3.579.2.462 Unknown [id number] 2.16.840.1.912557.3.579.2.462 Unknown [id number] 2.16.840.1.073295.3.579.2.462 Unknown [id number] 2.16.840.1.662050.3.579.2.462 Unknown [id number] 2.16.840.1.624917.3.579.2.462 Unknown [id number] 2.16.840.1.950250.3.579.2.462 Unknown [id number] 2.16.840.1.196945.3.579.2.462 Unknown [id number] 2.16.840.1.434718.3.579.2.462 Unknown [id number] 2.16.840.1.290312.3.579.2.462 Unknown [id number] 2.16.840.1.608780.3.579.2.462 Unknown [id number] 2.16.840.1.043489.3.579.2.462 Unknown [id number] 2.16.840.1.964201.3.579.2.462 Unknown [id number] 2.16.840.1.929406.3.579.2.462 Unknown [id number] 2.16.840.1.583762.3.579.2.462 Unknown [id number] 2.16.840.1.044204.3.579.2.462 Unknown [id number] 2.16.840.1.161401.3.579.2.462 Unknown [id number] 2.16.840.1.569454.3.579.2.462 Unknown [id number] 2.16.840.1.214560.3.579.2.462 Unknown [id number] 2.16.840.1.111668.3.579.2.462 Unknown [id number] 2.16.840.1.293159.3.579.2.462 Unknown [id number] 2.16.840.1.100967.3.579.2.462 Unknown [id number] 2.16.840.1.264643.3.579.2.462 Unknown [id number] 2.16.840.1.721357.3.579.2.462 Unknown [id number] 2.16.840.1.852754.3.579.2.462 Unknown [id number] 2.16.840.1.025469.3.579.2.462 Unknown [id number] 2.16.840.1.958022.3.579.2.462 Unknown [id number] 2.16.840.1.395085.3.579.2.462 Unknown [id number] 2.16.840.1.742950.3.579.2.462 Social History Date Type Detail Facility Start: 05-22-2019 End: 12-23-2024 Tobacco smoking status NHIS Former smoker [facility] Start: 1945 Sex Assigned At Not on file [facility] Work Phone: Start: 11-24-2020 End: 11-24-2020 Tobacco smoking status [facility] Unknown if ever smoked [facility] Start: 1945 Sex Assigned At Male [facility] Sex [facility] History of tobacco use Current smoker [facility] Start: 12-12-2021 Sex Male (finding) [facility] Mental Status Date Assessment Result Facility 11-20-2024 Cognitive function Level Of Cons ciousness Awake;Alert;Appropriate [facility] Work Phone: 11-20-2024 Cognitive function Patient Aleyda blair Person;Place;Time [facility] Work Phone: Clinical Notes 05-24-2019 to 03-24-2025 Telephone Encounter - Lizz Jenkins - 03/24/2025 9:52 AM ESTTelephone Encounter - Lizz Jenkins - 03/24/2025 9:52 AM ESTTelephone Encounter - Pam Valera - 03/24/2025 9:38 AM EST Note Date & Type Note Facility 03-24-2025 Telephone encount er Note All [facility] imaging uploaded to PACS. Had to call [facility] for a few CXRs and CT that were missed. They are pushing through [employer] today. [facility] 03-24-2025 Miscellaneous Notes Formattin g of this note might be different from the original. All [facility] imaging uploaded to PACS. Had to call [facility] for a few CXRs and CT that were missed. They are pushing through [employer] today. Lizz please request images again for us! Thank you! Received a referral for LNC. Patient was originally scheduled on 04/[address] [facility] but called in after seeing ONC today needing a sooner appt. Patient scheduled on 03/[address] [facility] at 9am, overbooked 15 min slot. Please advise if appt is appropriate for overbook. Thank you. documented in this encounter [facility] 03-24-2025 Telephone encount er Note Lizz please request images again for us! Thank you! [facility] 03-24-2025 Note Received a referral for LNC. Patient was originally scheduled on 04/[address] [facility] but called in after seeing ONC today needing a sooner appt. Patient scheduled on 03/27 in [facility] at 9am, overbooked 15 min slot. Please advise if appt is appropriate for overbook. Thank you. [facility] 03-24-2025 Telephone encount er Note Received a referral for LNC. Patient was originally scheduled on 04/17 in [facility] but called in after seeing ONC today needing a sooner appt. Patient scheduled on 03/27 in [facility] at 9am, overbooked 15 min slot. Please advise if appt is appropriate for overbook. Thank you. [facility] 02-24-2025 Progress note [facility] 02-16-2025 Progress note [facility] 02-09-2025 Progress note [facility] 01-26-2025 Progress note [facility] 01-26-2025 Progress note Note Date/Time January 26, 2025 9:50am [facility] [place] [address] OFFICE VISIT Date of Service: 01/26/25 0855 MR#: [id number] Acct: [id number] Name: BASSEM YEE Rep #: [id number] : 1945 From: Clement Lewis MD Age/Sex: 79/M Location: [facility] Status: Signed HPI Subjective Date of Service 01/26/25 Chief Complaint F/U for CLL/SLL History of Present Illness 79 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 Had TURP on 12/01/2020. Pathology show CLL/SLL. He was found to have Lymphocytosis in May [address] Pavon. He was referred for further evaluation. Flow cytometry showed CLL on 01/03/2021, CD38 positive, IgVH negative, 46,XY,add(11)(p15),del(11)(q21q25)[12]/4 6,XY[8]. CT on 12/25/2022 showed small mediastinal nodes, enlarged prostate, no pelvic nodes. He was on observation, admitted with another bout of pneumonia with shock to the hospital in [place]. Came to clinic because of episodes of fever, he has recorded a temperature of 102 over August/September. IgG WNL. He had a PET/CT on 2024 which showed spiculated hypermetabolic right upper lobe lung mass, hypermetabolic activity in right parotid mass. Had a CT guided biopsy of right lung on 11/21/2023 was negative for malignancy. Started systemic therapy with Bendamustine Rituxan December 17, 2024. Got C2 on 01/14/2025. Comes for toxicity check. Has been running fevers, and takes Tylenol and Ibuprofen. 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 History of leukemia Gastric reflux COPD (chronic obstructive pulmonary disease) Surgical History History of parotid gland removal Hx of transurethral resection of prostate (12/01/20) Status post incision and drainage Status post heart valve replacement Family History Brother Cancer Mother Heart disease Social History Smoking Status: Former smoker alcohol intake: never substance use type: does not use Intake Vital Signs 01/14/25 09:20 01/20/25 05:17 01/26/25 08:55 Height 5 ft 8 in 5 ft 8 in 5 ft 8 in Weight: 63.957 kg BMI 21.4 BP 111/68 Blood Pressure Location Lt brachial Position Sitting Respiration 18 Pulse 81 Pulse Source Monitor Temp 98.4 F Temperature Source Temporal Artery Pulse Oximetry (%) 100 Oxygen Delivery Method room air Intake Accompanied by: Self Is patient in pain?: No Allergies Sulfa (Sulfonamide Antibiotics) Allergy (Verified 01/26/25 08:59) Swelling Medications ?Medication ?Instructions ?Recorded ?Confirmed ?Type famotidine 20 mg tablet 20 mg PO QDAY 03/19/2401/26 History lactobacillus combination no.9 4 4,000 mmu cells PO QD AY 07/24/24 01/26/25 History billion cell capsule (Adult 50 Plus Probiotic) doxycycline hyclate 100 mg tablet 100 mg PO QDAY 10/0201/26/25 History allopurinol 300 mg tablet 300 mg PO QDAY 30 days #30 t abs 12/04/24 01/26/25 Rx albuterol sulfate 90 mcg/actuation 2 puff inhalation Q 4-6H PRN 12/05/24 01/26/25 Rx aerosol inhaler (ProAir HFA) shortness of breath or wh eezing #8.5 grams fluticasone fur. 200 mcg-umeclid 1 inh inhalation Q24H #3 ea 12/09/24 01/26/25 Rx 62.5 mcg-vilant 25 mcg inhalat.powder (Trelegy Ellipta) ondansetron HCl 8 mg tablet 8 mg PO Q12H PRN nausea an d 12/17/24 01/26/25 Rx vomiting #30 tabs atorvastatin 20 mg tablet (Lipitor) 20 mg PO QHS 01/1401/26/25 History Have you fallen in the past year?: No Central Venous Access Central Venous Access: No Exam Physical Exam Narrative PS 1-Fevers Const alert, oriented x3 and no apparent distress General Appearance: cooperative and comfortable HEENT normocephalic Neck full ROM, supple and no meningeal signs Lymph Lymphatic: no lymphadenopathy noted Chest inspection of chest normal Resp normal respiratory effort and clear to auscultation bilaterally Cardio regular rate, regular rhythm, S1 normal heart sound and S2 normal heart sound GI normal to inspection, nondistended, normoactive bowel sounds no CVA tenderness Back/Spine no CVA tenderness and thoracic and lumbar spine normal to inspection Extremity normal to inspection and no clubbing, cyanosis or edema Skin no rashes or lesions noted Neuro oriented x3, CN's II-XII intact bilaterally, moves all extremities and no focal motor deficits Psych mental status grossly normal Coding Level of Care Code Off vis,est,level 4 Exam Problem Focused Diagnoses CLL (chronic lymphocytic leukemia) C91.10 Parotid mass K11.8 Fever, unspecified fever cause R50.9 Fever type: unspecified Assessment and Plan Assessment and Plan (1) CLL (chronic lymphocytic leukemia): Status: Chronic Comment: CLL/SLL, Lymphocytosis with Prostate infiltration and abdominal adenopathy, CD38 positive, IgVH negative, 46,XY,add(11)(p15),del(11)(q21q25)[12]/4 6,XY[8]. Started Bendamustine + Rituxan December 19, 2024. Got C2 on 01/14/2025. Comes for Toxicity check, counts and chemistry reviewed, Haily counts show no neutropenia/thrombocytopenia. Plan: Follow-up in 2 weeks for cycle 3. (2) Parotid mass: Status: Chronic Comment: R parotid mass on CT done on 12/25/2022. 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 (3) Fever: Status: Acute Qualifiers: Fever type: unspecified Qualified Code(s): R50.9 - Fever, unspecified Comment: Etiology is unclear now. Plan: To start recording Temperatures, call the clinic before restarting Antipyretics Plan Details Follow Up: 2 Weeks Clinical Quality Measures Falls Risk Screening/Assistive Devices Have you fallen in the past year?: No 01/26/25 0950 <Electronically signed by Clement Jorgensen> Date _ [facility] Lewis [facility] Signature: Date (if applicable) CC: Dr. 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 Had TURP on 12/01/2020. Pathology show CLL/SLL. He was found to have Lymphocytosis in May [address] Pavon. He was referred for further evaluation. Flow cytometry showed CLL on 01/03/2021, CD38 positive, IgVH negative, 46,XY,add(11)(p15),del(11)( q21q25)[12]/46,XY[8]. CT on 12/25/2022 showed small mediastinal nodes, enlarged prostate, no pelvic nodes. He was on observation, admitted with another bout of pneumonia with shock to the hospital in [place]. Came to clinic because of episodes of fever, he has recorded a temperature of 102 over . IgG WNL. He had a PET/CT on 2024 which showed spiculated hypermetabolic right upper lobelung mass, hypermetabolic activity in right parotid mass. Had a CT guided biopsy of right lung on 11/21/2023 was negative for malignancy. Comes for follow- up to start therapy. He still getting episodes of fever. 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 History of leukemia Gastric reflux COPD (chronic obstructive pulmonary disease) Surgical History History of parotid gland removal Hx of transurethral resection of prostate (12/01/20) Status post incision and drainage Status post heart valve replacement Family History Brother Cancer Mother Heart disease Social History Smoking Status: Former smoker alcohol intake: never substance use type: does not use ROS Constitutional Constitutional: Reports systems reviewed and no addt'l complaints, except as documented, fever(s) and other Details: Fevers have not changed usually at the end of the day resolve with Motrin ; Denies fatigue or weight loss Eyes Eyes: Reports systems reviewed and no addt'l complaints, except as documented ENT HEENT: Reports systems reviewed and no addt'l complaints, except as documented; Denies mouth lesions or nasal discharge Cardiovascular Cardiovascular: Reports systems reviewed and no addt'l complaints, except as documented; Denies chest pain with activity Respiratory/Chest Respiratory/Chest: Reports cough and dry cough Gastrointestinal Gastrointestinal: Reports systems reviewed and no addt'l complaints, except as documented; Denies change in bowel habits Genitourinary Genitourinary: Reports systems reviewed and no addt'l complaints, except as documented; Denies dysuria Musculoskeletal Musculoskeletal: Reports systems reviewed and no addt'l complaints, except as documented Integumentary Integumentary: Reports systems reviewed and no addt'l complaints, except as documented; Denies new lesions Neurologic Neurologic: Reports systems reviewed and no addt'l complaints, except as documented Psychiatric Psychiatric: Reports systems reviewed and no addt'l complaints, except as documented Endocrine Endocrinology: Reports systems reviewed and no addt'l complaints, except as documented Hematologic/Lymphatic Hematologic/Lymphatic: Reports systems reviewed and no addt'l complaints, except as documented Intake Vital Signs 12/17/24 08:19 12/31/24 09:27 Height 5 ft 8 in 5 ft 8 in Weight: 62.652 kg BMI 20.9 BP 115/75 Blood Pressure Location Lt brachial Position Sitting Respiration 18 Pulse 65 Pulse Source Monitor Temp 97.9 F Temperature Source Temporal Artery Pulse Oximetry (%) 97 Oxygen Delivery Method room air Intake Accompanied by: Self Is patient in pain?: No Allergies Sulfa (Sulfonamide Antibiotics) Allergy (Verified 12/31/24 09:33) Swelling Medications ?Medication ?Instructions ?Recorded ?Confirmed ?Type famotidine 20 mg tablet 20 mg PO QDAY 03/19/2412/31 History lactobacillus combination no.9 4 4,000 mmu cells PO QD AY 07/24/24 12/31/24 History billion cell capsule (Adult 50 Plus Probiotic) doxycycline hyclate 100 mg tablet 100 mg PO QDAY 10/0212/31/24 History allopurinol 300 mg tablet 300 mg PO QDAY 30 days #30 t abs 12/04/24 12/31/24 Rx albuterol sulfate 90 mcg/actuation 2 puff inhalation Q 4-6H PRN 12/05/24 12/31/24 Rx aerosol inhaler (ProAir HFA) shortness of breath or wh eezing #8.5 grams fluticasone fur. 200 mcg-umeclid 1 inh inhalation Q24H #3 ea 12/09/24 12/31/24 Rx 62.5 mcg-vilant 25 mcg inhalat.powder (Trelegy Ellipta) ondansetron HCl 8 mg tablet 8 mg PO Q12H PRN nausea an d 12/17/24 12/31/24 Rx vomiting #30 tabs Have you fallen in the past year?: No Central Venous Access Central Venous Access: No Laboratory Tests 12/17/24 12/31/24 07:41 08:34 Hgb 11.4 L Plt Count 170 Absolute Lymphs (auto) 33.78 H 1.44 Exam Physical Exam Const alert, oriented x3 and no apparent distress General Appearance: cooperative and comfortable Coding Level of Care Code Off vis,est,level 3 Exam Problem Focused Diagnoses CLL (chronic lymphocytic leukemia) C91.10 Lung nodule R91.1 Parotid mass K11.8 Chemotherapy management, encounter for Z51.11 Encounter for monoclonal antibody treatment for malignancy Z51.12 Assessment and Plan Assessment and Plan (1) CLL (chronic lymphocytic leukemia): Status: Chronic Comment: CLL/SLL, Lymphocytosis with Prostate infiltration and abdominal adenopathy, CD38 positive, IgVH negative, 46,XY,add(11)(p15),del(11)(q21q25)[12]/46,XY[8]. Started Bendamustine Rituxan December 19, 2024. Tolerated with no reported toxicities and have shown aresponse with significant drop in ALC to within normal range following 1 cycle and no evidence for tumor lysis. Plan: Follow-up in 2 weeks for cycle 2 (2) Lung nodule: Status: Acute Comment: 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 Plan: To continue observation. (3) Parotid mass: Status: Chronic Comment: R parotid mass on CT done on 12/25/2022. 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 (4) Chemotherapy management, encounter for: Status: Acute Comment: Counts and chemistry reviewed, Ok for therapy. Plan: To proceed with Bendeka C1D1 today, D2 tomorrow. (5) Encounter for monoclonal antibody treatment for malignancy: Status: Acute Plan: To proceed with Rituxan D1 today. Orders: Orders CBC W/Diff, Automated Today C91.10 - Chronic lymphocytic leukemia of B-cell type not having achieved remission Comprehensive Metabolic Profil Today C91.10 - Chronic lymphocytic leukemia of B- cell type not having achieved remission Uric Acid Today C91.10 - Chronic lymphocytic leukemia of B-cell type not having achieved remission LDH Today C91.10 - Chronic lymphocytic leukemia of B-cell type not having achieved remission Clinical Quality Measures Falls Risk Screening/Assistive Devices Have you fallen in the past year?: No 12/31/24 0955 emeterio DE LA CRUZ> Date _ Demetra Sotelo MD Cosigner Signature: Date (if applicable) CC: ~ [facility]08-20-2025 Progress note Author Demetra Sotelo [facility] Note Date/Time December 31, 2024 9: 55am [facility] [address] [address] OFFICE VISIT Date of Service: 12/31/24924 MR#: [id number] Acct: [id number] Name: BASSEM YEE Rep #: [id number] : 1945 From: Demetra uriarte MD Age/Sex: 79/M Location: [facility] Status: Signed HPI Subjective Date of Service 12/31/24 Chief Complaint F/U for CLL/SLL History of Present Illness 79 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 Had TURP on 12/01/2020. Pathology show CLL/SLL. He was found to have Lymphocytosis in May [address] Pavon. He was referred for further evaluation. Flow cytometry showed CLL on 01/03/2021, CD38 positive, IgVH negative, 46,XY,add(11)(p15),del(11)(q21q25)[12]/46,XY[8]. CT on 12/25/2022 showed small mediastinal nodes, enlarged prostate, no pelvic nodes. He was on observation, admitted with another bout of pneumonia with shock to the hospital in [place]. Came to clinic because of episodes of fever, he has recorded a temperature of 102 over . IgG WNL. He had a PET/CT on 2024 which showed spiculated hypermetabolic right upper lobe lung mass, hypermetabolic activity in right parotid mass. Had a CT guided biopsy of right lung on 11/21/2023 was negative for malignancy. Comes for follow-up to start therapy. He still getting episodes of fever. 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 History of leukemia Gastric reflux COPD (chronic obstructive pulmonary disease) Surgical History History of parotid gland removal Hx of transurethral resection of prostate (12/01/20) Status post incision and drainage Status post heart valve replacement Family History Brother Cancer Mother Heart disease Social History Smoking Status: Former smoker alcohol intake: never substance use type: does not use ROS Constitutional Constitutional: Reports systems reviewed and no addt'l complaints, except as documented, fever(s) and other Details: Fevers have not changed usually at the end of the day resolve with Motrin ; Denies fatigue or weight loss Eyes Eyes: Reports systems reviewed and no addt'l complaints, except as documented ENT HEENT: Reports systems reviewed and no addt'l complaints, except as documented; Denies mouth lesions or nasal discharge Cardiovascular Cardiovascular: Reports systems reviewed and no addt'l complaints, except as documented; Denies chest pain with activity Respiratory/Chest Respiratory/Chest: Reports cough and dry cough Gastrointestinal Gastrointestinal: Reports systems reviewed and no addt'l complaints, except as documented; Denies change in bowel habits Genitourinary Genitourinary: Reports systems reviewed and no addt'l complaints, except as documented; Denies dysuria Musculoskeletal Musculoskeletal: Reports systems reviewed and no addt'l complaints, except as documented Integumentary Integumentary: Reports systems reviewed and no addt'l complaints, except as documented; Denies new lesions Neurologic Neurologic: Reports systems reviewed and no addt'l complaints, except as documented Psychiatric Psychiatric: Reports systems reviewed and no addt'l complaints, except as documented Endocrine Endocrinology: Reports systems reviewed and no addt'l complaints, except as documented Hematologic/Lymphatic Hematologic/Lymphatic: Reports systems reviewed and no addt'l complaints, except as documented Intake Vital Signs 12/17/24 08:19 12/31/24 09:27 Height 5 ft 8 in 5 ft 8 in Weight: 62.652 kg BMI 20.9 BP 115/75 Blood Pressure Location Lt brachial Position Sitting Respiration 18 Pulse 65 Pulse Source Monitor Temp 97.9 F Temperature Source Temporal Artery Pulse Oximetry (%) 97 Oxygen Delivery Method room air Intake Accompanied by: Self Is patient in pain?: No Allergies Sulfa (Sulfonamide Antibiotics) Allergy (Verified 12/31/24 09:33) Swelling Medications ?Medication ?Instructions ?Recorded ?Confirmed ?Type famotidine 20 mg tablet 20 mg PO QDAY 03/19/2412/31 History lactobacillus combination no.9 4 4,000 mmu cells PO QD AY 07/24/24 12/31/24 History billion cell capsule (Adult 50 Plus Probiotic) doxycycline hyclate 100 mg tablet 100 mg PO QDAY 10/0212/31/24 History allopurinol 300 mg tablet 300 mg PO QDAY 30 days #30 t abs 12/04/24 12/31/24 Rx albuterol sulfate 90 mcg/actuation 2 puff inhalation Q 4-6H PRN 12/05/24 12/31/24 Rx aerosol inhaler (ProAir HFA) shortness of breath or wh eezing #8.5 grams fluticasone fur. 200 mcg-umeclid 1 inh inhalation Q24H #3 ea 12/09/24 12/31/24 Rx 62.5 mcg-vilant 25 mcg inhalat.powder (Trelegy Ellipta) ondansetron HCl 8 mg tablet 8 mg PO Q12H PRN nausea an d 12/17/24 12/31/24 Rx vomiting #30 tabs Have you fallen in the past year?: No Central Venous Access Central Venous Access: No Laboratory Tests 12/17/24 12/31/24 07:41 08:34 Hgb 11.4 L Plt Count 170 Absolute Lymphs (auto) 33.78 H 1.44 Exam Physical Exam Const alert, oriented x3 and no apparent distress General Appearance: cooperative and comfortable Coding Level of Care Code Off vis,est,level 3 Exam Problem Focused Diagnoses CLL (chronic lymphocytic leukemia) C91.10 Lung nodule R91.1 Parotid mass K11.8 Chemotherapy management, encounter for Z51.11 Encounter for monoclonal antibody treatment for malignancy Z51.12 Assessment and Plan Assessment and Plan (1) CLL (chronic lymphocytic leukemia): Status: Chronic Comment: CLL/SLL, Lymphocytosis with Prostate infiltration and abdominal adenopathy, CD38 positive, IgVH negative, 46,XY,add(11)(p15),del(11)(q21q25)[12]/46,XY[8]. Started Bendamustine Rituxan December 19, 2024. Tolerated with no reported toxicities and have shown a response with significant drop in ALC to within normal range following 1 cycle and no evidence for tumor lysis. Plan: Follow-up in 2 weeks for cycle 2 (2) Lung nodule: Status: Acute Comment: 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 Plan: To continue observation. (3) Parotid mass: Status: Chronic Comment: R parotid mass on CT done on 12/25/2022. 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 (4) Chemotherapy management, encounter for: Status: Acute Comment: Counts and chemistry reviewed, Ok for therapy. Plan: To proceed with Bendeka C1D1 today, D2 tomorrow. (5) Encounter for monoclonal antibody treatment for malignancy: Status: Acute Plan: To proceed with Rituxan D1 today. Orders: Orders CBC W/Diff, Automated Today C91.10 - Chronic lymphocytic leukemia of B-cell type not having achieved remission Comprehensive Metabolic Profil Today C91.10 - Chronic lymphocytic leukemia of B- cell type not having achieved remission Uric Acid Today C91.10 - Chronic lymphocytic leukemia of B-cell type not having achieved remission LDH Today C91.10 - Chronic lymphocytic leukemia of B-cell type not having achieved remission Clinical Quality Measures Falls Risk Screening/Assistive Devices Have you fallen in the past year?: No 12/31/24 0955 <Electronically signed by Demetra storm MD> Date _ Demetra Sotelo MD Cosigner Signature: Date (if applicable) CC: ~ [facility] [employer] Work Phone: 1(157) 927-281208-12-2025 Discharge summary [facility] Medical Records Department [address] [place] [address] Emergency Department Summary 12/23/24 MR#: [id number] Acct: [id number] Name: BASSEM YEE Rep #:[id number] : 1945 79 From: Jose Taylor MD PCP: Dr. Shira Pavon MD Status:REG E R Location: ED HPI History of Present Illness Chief Complaint: Chest Pain Detail of Chief Complaint: Initially right-sided chest pain, pedal edema and cough Informant: patient Onset/Context/Timing Onset: Weeks (After lung biopsy 3 weeks ago) Context: Sudden Onset Timing: Intermittent (Varies pain is predominantly after coughing or taking a deep breath and occurs intermittently during the day) Quality: Sharp. Location: Initially right side of the chest now bilaterally Current Severity: Gone Maximum Severity: Severe (A sudden deep breath or a sudden hard cough) Worsened by: Documented under maximum severity Relieved by: Not applicable since his transient Associated Symptoms Associated Symptoms: Reports intermittent pedal edema the past couple of days Narrative Narrative: Patient is a 79-year-old male. He is status post multi valve repair and replacement, with history of B-cell chronic lymphocytic leukemia variant, fatigue, hypercholesterolemia, iron deficiency anemia, coronary artery disease, benign lung nodule and ICU admission [facility] 3 months ago for pneumonia. Patient states he has not been well or the same since his admission for pneumonia. He denies fever or chills. He does complain of congestion which is chronic. He denies sore throat. He has slight hoarseness of his voice. His cough is nonproductive. Presently if he takes a deep breath he does not have pain. He does report shortness of breath at rest. That has been an issue for months. He may have be slightly more short of breath with activity the past week or 2. He has had intermittent pedal edema. He is not able to tell me if it is worse at night versus the morning. He states it is not always present. He is not sure what makes it better or worse. He has 3 pillow orthopnea since his admissionat [facility]. He denies history of congestive heart failure and review of records indicates he does not have history of heart failure. He has had an increase in weight. He was prescribed a new medicinefor his COPD. He was on Symbicort. He states he feels much better since he was prescribed a new medicine 3 weeks ago. He denies black or maroon-colored stool. He denies urinary symptoms. He deniesabdominal pain or back pain. He denies exertional chest pain, pressure tightness or heaviness. He denies PND. 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 History of leukemia Gastric reflux COPD (chronic obstructive pulmonary disease) Home Medications ?Medication ?Instructions ?Recorded ?Last Taken ?Type atorvastatin 20 mg tablet 20 mg PO QDAY 03/19/24 Unkno wn History famotidine 20 mg tablet 20 mg PO QDAY 03/19/24 Unkno wn History lactobacillus combination no.9 4 4,000 mmu cells PO QD AY 07/24/24 Unknown History billion cell capsule (Adult 50 Plus Probiotic) doxycycline hyclate 100 mg tablet 100 mg PO QDAY 10/02 Unknown History allopurinol 300 mg tablet 300 mg PO QDAY 30 days #30 t abs 12/04/24 Unknown Rx albuterol sulfate 90 mcg/actuation 2 puff inhalation Q 4-6H PRN 12/05/24 Unknown Rx aerosol inhaler (ProAir HFA) shortness of breath or wh eezing #8.5 grams fluticasone fur. 200 mcg-umeclid 1 inh inhalation Q24H #3 ea 12/09/24 Unknown Rx 62.5 mcg-vilant 25 mcg inhalat.powder (Trelegy Ellipta) ondansetron HCl 8 mg tablet 8 mg PO Q12H PRN nausea an d 12/17/24 Unknown Rx vomiting #30 tabs Allergy/AdvReac Type Severity Reaction Status Date / Time Sulfa (Sulfonamide Allergy Swelling Verified 12/23/24 09:23 Antibiotics) Family History Brother Cancer Mother Heart disease Surgical History History of parotid gland removal Hx of transurethral resection of prostate (12/01/20) Status post incision and drainage Status post heart valve replacement Social History Smoking Status: Former smoker alcohol intake: never substance use type: does not use ROS ROS ED Constitutional Constitutional ED: Denies chills, fever(s), subjective, sweats or weight loss Eyes Eyes: Denies blurry vision or change in vision ENT ENT ED: Reports other Details: Further detailed HPI narrative ; Denies ear pain, rhinorrhea or sore throat Cardiovascular Cardiovascular: Reports chest pain, orthopnea and other Details: Further detailed HPI narrative ; Denies palpitations, paroxysmal nocturnal dyspnea or racing heartbeat Respiratory/Chest Respiratory/Chest: Reports cough, dyspnea, dyspnea on exertion, orthopnea and other Details: Further detailed HPI narrative ; Denies paroxysmal nocturnal dyspnea or sputum Gastrointestinal Gastrointestinal: Denies abdominal pain, diarrhea, nausea or vomiting Genitourinary Genitourinary ED: Denies dysuria, hematuria or urinary frequency Musculoskeletal Musculoskeletal: Denies arthralgias or myalgias Integumentary Denies rash Neurologic Neurologic: Denies headache(s), paresthesias or weakness Endocrine Endocrinology: Denies cold intolerance or heat intolerance Hematologic/Lymphatic Hematologic/Lymphatic: Reports systems reviewed and no addt'l complaints, exceptas documented Allergic/Immunologic Allergic/Immunologic ED: Denies mouth swelling or tongue swelling EXAM Physical Exam Const Vital Signs: 12/23/24 09:23 12/23/24 10:24 Temperature 97.1 F L Temperature Source Temporal Pulse Rate 110 H 92 Respiratory Rate 18 18 Blood Pressure 154/81 H Blood Pressure Mean 105 Pulse Ox 98 97 Oxygen Delivery Method Room Air Room Air Positive well nourished and well developed General Appearance ED: well developed and NAD; Negative for pallor HEENT Reports moist mucous membranes HEENT Narrative: Ears are normal. Nares are patent. Posterior pharynx is normal. Eyes PERRL and EOMs intact bilaterally General Eye ED: Negative for pale conjunctiva or scleral icterus Neck no lymphadenopathy, supple and no JVD Neck Narrative: Trachea is midline. There is no JVD. Chest Wall inspection of chest normal and palpation of chest normal Resp normal respiratory effort Resp Narrative: Patient is slightly tachypneic and breathing faster than 18 times a minute. Hislungs are clear to auscultation. There is decreased air movement bilaterally. There is no wheezing even with forced expiration. Cardio regular rate, regular rhythm, S1 normal heart sound, S2 normal heart sound and no murmurs GI normal to inspection, nondistended, normoactive bowel sounds, non-tender, non- distended and no masses; Negative for hepatosplenomegaly Palpation: soft Back/Spine no CVA tenderness Extremity normal to inspection Extremity Narrative: There is no asymmetry, swelling, discoloration, leg vein distention, palpable cords or tenderness along the distribution of the deep venous system. General Extremety ED: Negative for edema or tenderness General Extremity: Negative for edema Neuro oriented x3, CN's II-XII intact bilaterally and no sensory deficits noted Motor Exam: strength 5/5 throughout Psych mental status grossly normal Skin no rashes or lesions noted, no wounds and skin turgor normal General Skin Exam: Negative for jaundice or pallor MDM MDM MDM Narrative Medical decision making narrative: Patient's chest pain started after biopsy. In consideration would be pneumothorax which would be unlikely, recurrent pneumonia, pleurisy, with patient having intermittent transient symptoms this is not consistent with cardiac etiology. Symptoms not consistent with pulmonary embolus either. His symptoms are not suggestive of GI etiology either. His workup included chest x- ray, EKG because he is tachycardic CBC to assess H&H and competence of metabolicpanel to assess renal function, electrolytes liver enzymes to determine there isany evidence of endorgan dysfunction. Since he has no rales he has no edema hisexam and history is not consistent with CHF. If there is evidence of CHF on thex-ray will obtain troponin and BNP. Reviewed Dr. Clement Lewis's office note authored on December 17. Assessment was lung nodule, CLL, parotid mass, chemotherapy management and encounter for monoclonal antibody treatment for malignancy. Thelung biopsy revealed chronic inflammation with fibrosis and anthracosis. There was no evidence of malignancy. His parotid mass was noted on CAT scan dated December 25. He is scheduled for biopsy 911. 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 Lab Data Labs: Laboratory Results - last 24 hr 12/23/24 09:50 WBC 9.3 RBC 4.84 Hgb 12.9 L Hct 41.3 MCV 85.3 MCH 26.7 L MCHC 31.2 L RDW Std Deviation 42.5 RDW Coeff of Antonio 13.7 Plt Count 110 L MPV 9.8 Sodium 138 Potassium 4.1 Chloride 101 Carbon Dioxide 27.2 Anion Gap 10 BUN 21 H Creatinine 1.34 H Estim Creat Clear Calc 40.88 L Est GFR (MDRD) Non-Af 55 L BUN/Creatinine Ratio 15.6 Glucose 117 H Calcium 9.7 Total Bilirubin 1.13 AST 15 ALT 12 Alkaline Phosphatase 55 Total Protein 6.0 Albumin 3.8 Globulin 2.3 Albumin/Globulin Ratio 1.7 Radiography Chest X-Ray - ED: 2 View and Read by ED Physician (There are chronic changes noted. He has hyper inflation consistent with COPD. There is no evidence of pneumothorax, infiltrate or effusion. He has multiple clips due to prior aorticvalve replacements and clipping of his atrium. Cardiac silhouette is normal. Osseous structures reveal no acute p) Diagnostic Testing: Clinical Impression(s) from Imaging Studies Chest X-Ray 12/23/24 10:25 IMPRESSION: Hyperinflation and changes compatible with COPD. Prominence of the central pulmonary arteries suggestive of pulmonary hypertension. Prior mitral and aortic valve replacement as well as clip of the left atrium. Reading Location: [facility] EKG Initial EKG: Attestation: I personally reviewed and interpreted this EKG as follows: Interpretation: Sinus Rhythm (Rate is 89. The EKG is normal other than artifact. WI interval is on 52 ms. Cures duration 90 ms. QT duration 348 ms. [place] is normal.) Treatment and Re-Evaluation :: Patient was informed of his results. In my opinion he does not have a PE. Willprescribe antibiotic.He states he is on doxycycline presently. That was not listed on his medication list. He was instructed to take until gone. Discharge Plan Triage Chief Complaint: Chest Pain ED Provider: Jose Taylor Dx/Rx/DC Orders Clinical Impression: Acute exacerbation of chronic obstructive pulmonary disease, B-cell chronic lymphocytic leukemia variant, Pain of anterior chest wall with respiration, Acute renal insufficiency Instructions: ED COPD Flare, ED Renal Insufficiency Prescriptions: No Action famotidine 20 mg tablet 20 mg PO QDAY atorvastatin 20 mg tablet 20 mg PO QDAY Adult 50 Plus Probiotic 4 billion cell capsule 4,000 mmu cells PO QDAY Rx Instructions: administer with a meal doxycycline hyclate 100 mg tablet 100 mg PO QDAY allopurinol 300 mg tablet 300 mg PO QDAY 30 Days Qty: 30 2RF ondansetron HCl 8 mg tablet 8 mg PO Q12H PRN (Reason: nausea and vomiting) Qty: 30 0RF albuterol sulfate [ProAir HFA] 90 mcg/actuation HFA aerosol inhaler 2 puff inhalation Q4-6H PRN (Reason: shortness of breath or wheezing) Qty: 8.5 3RF Trelegy Ellipta 200-62.5-25 mcg blister with device 1 inh inhalation Q24H Qty: 3 3RF Primary Care Provider: Shira Pavon Referrals: Clement Lewis MD [Med Staff - Active Staff] - 1 Week Shira Pavon MD [Primary Care Provider] - 1 Week if not improving Print Language: Ethiopian Disposition Disposition: Home, Self Care What to do if you have Problems For any increased pain, shortness of breath, bleeding, nausea or vomiting, chestpain, or any unexpected problems, contact your Primary Care Provider. Call [facility] ([phone]) or report tothe closest Emergency Room. Call 911 if necessary. 12/23/24 1122 Cosigner Signature (if applicable): CC: Dr. Shira Pavon MD ~ Signed [facility]08-12-2025 Radiology Diagnostic study note [facility] Imaging Services [address] [place] [address] Chest PA and Lateral MR#: [id number] Acct: [id number] Name: BASSEM YEE Rep #: [id number] : 1945 M 79 From: Goyo Lombardi MD PCP: Dr. Shira Pavon MD Status: REG E R Study:Chest PA and Lateral Date of Exam: 12/23/24 Exam# [id number] Ordering Dr: Luba Taylor MD PROCEDURE: CHEST PA AND LATERAL 12/23/2024 REASON FOR EXAM: COUGH, INTERMITTENT CHEST PAIN, DYSPNEA TECHNIQUE: CHEST PA AND LATERAL COMPARISON: Prior study dated November 20, 2024. FINDINGS: Hardware: EKG electrodes are seen. Heart: Prior midline sternotomy and mitral and aortic valve replacement. A clipis seen overlying the left atrial appendage. Mediastinum: The mediastinal contour is unremarkable. Lungs: Hyperinflation. Findings suggestive of emphysema. Prominence of the central pulmonary arteries suggestive of possible component of hypertension. Bones: Degenerative changes are identified within the thoracic spine. RAD/Chest PA and Lateral IMPRESSION: Hyperinflation and changes compatible with COPD. Prominence of the central pulmonary arteries suggestive of pulmonary hypertension. Prior mitral and aortic valve replacement as well as clip of the left atrium. Reading Location: [place] [address] CC: Dr. Jose Taylor MD; Dr. Shira Pavon MD ~ Glove Cuffer: Signed [facility]08-06-2025 [facility] [address] 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 Had TURP on 12/01/2020. Pathology show CLL/SLL. He was found to have Lymphocytosis in May [address] Pavon. He was referred for further evaluation. Flow cytometry showed CLL on 01/03/2021, CD38 positive, IgVH negative, 46,XY,add(11)(p15),del(11)( q21q25)[12]/46,XY[8]. CT on 12/25/2022 showed small mediastinal nodes, enlarged prostate, no pelvic nodes. He was on observation, admitted with another bout of pneumonia with shock to the hospital in [place]. Came to clinic because of episodes of fever, he has recorded a temperature of 102 over August/September. IgG WNL. He had a PET/CT on 2024 which showed spiculated hypermetabolic right upper lobelung mass, hypermetabolic activity in right parotid mass. Had a CT guided biopsy of right lung on 11/21/2023 was negative for malignancy. Comes for follow- up to start therapy. He still getting episodes of fever. 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 History of leukemia Gastric reflux COPD (chronic obstructive pulmonary disease) Surgical History History of parotid gland removal Hx of transurethral resection of prostate (12/01/20) Status post incision and drainage Status post heart valve replacement Family History Brother Cancer Mother Heart disease Social History Smoking Status: Former smoker alcohol intake: never substance use type: does not use Intake Vital Signs 12/04/24 14:27 12/17/24 08:19 Height 5 ft 8 in 5 ft 8 in Weight: 63.163 kg BMI 21.2 BP 117/65 Blood Pressure Location Lt brachial Position Sitting Respiration 18 Pulse 61 Pulse Source Monitor Temp 98.4 F Temperature Source Temporal Artery Pulse Oximetry (%) 98 Oxygen Delivery Method room air Intake Accompanied by: Self Is patient in pain?: No Allergies Sulfa (Sulfonamide Antibiotics) Allergy (Verified 12/17/24 08:20) Swelling Medications ?Medication ?Instructions ?Recorded ?Confirmed ?Type atorvastatin 20 mg tablet 20 mg PO QDAY 03/19/2412/17 History famotidine 20 mg tablet 20 mg PO QDAY 03/19/2412/17 History lactobacillus combination no.9 4 4,000 mmu cells PO QD AY 07/24/24 12/17/24 History billion cell capsule (Adult 50 Plus Probiotic) doxycycline hyclate 100 mg tablet 100 mg PO QDAY 10/0212/17/24 History allopurinol 300 mg tablet 300 mg PO QDAY 30 days #30 t abs 12/04/24 12/17/24 Rx albuterol sulfate 90 mcg/actuation 2 puff inhalation Q 4-6H PRN 12/05/24 12/17/24 Rx aerosol inhaler (ProAir HFA) shortness of breath or wh eezing #8.5 grams fluticasone fur. 200 mcg-umeclid 1 inh inhalation Q24H #3 ea 12/09/24 12/17/24 Rx 62.5 mcg-vilant 25 mcg inhalat.powder (Trelegy Ellipta) Have you fallen in the past year?: No Central Venous Access Central Venous Access: No Exam Physical Exam Narrative PS 1-Fevers Const alert, oriented x3 and no apparent distress General Appearance: cooperative and comfortable HEENT normocephalic, external ears normal and external nose normal Neck full ROM, supple and no meningeal signs Lymph Lymphatic: no lymphadenopathy noted Chest inspection of chest normal Resp normal respiratory effort and clear to auscultation bilaterally Cardio regular rate, regular rhythm, S1 normal heart sound, S2 normal heart sound and no murmurs GI normal to inspection, nondistended, normoactive bowel sounds no CVA tenderness Back/Spine no CVA tenderness and thoracic and lumbar spine normal to inspection Extremity normal to inspection and no clubbing, cyanosis or edema Skin no rashes or lesions noted Neuro oriented x3, CN's II-XII intact bilaterally, moves all extremities and no focal motor deficits Psych mental status grossly normal Coding Level of Care Code Off vis,est,level 5 Exam Problem Focused Diagnoses Lung nodule R91.1 CLL (chronic lymphocytic leukemia) C91.10 Parotid mass K11.8 Chemotherapy management, encounter for Z51.11 Encounter for monoclonal antibody treatment for malignancy Z51.12 Assessment and Plan Assessment and Plan (1) Lung nodule: Status: Acute Comment: 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 Plan: To continue observation. (2) CLL (chronic lymphocytic leukemia): Status: Chronic Comment: CLL/SLL, Lymphocytosis with Prostate infiltration and abdominal adenopathy, CD38 positive, IgVH negative, 46,XY,add(11)(p15),del(11)(q21q25)[12]/46,XY[8]. Comes to start therapy with Bendeka and Rituxan because of fevers, discussed risks, benefits and side effects, Pt accepted to proceed with therapy. Counts and chemistry reviewed, Ok for therapy. Plan: To proceed with therapy with Bendeka and Rituxan C1D1 today, D2 tomorrow To continue Allopurinol 300mg. (3) Parotid mass: Status: Chronic Comment: R parotid mass on CT done on 12/25/2022. 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 (4) Chemotherapy management, encounter for: Status: Acute Comment: Counts and chemistry reviewed, Ok for therapy. Plan: To proceed with Bendeka C1D1 today, D2 tomorrow. (5) Encounter for monoclonal antibody treatment for malignancy: Status: Acute Plan: To proceed with Rituxan D1 today. Plan Details Follow Up: 2 Weeks Clinical Quality Measures Falls Risk Screening/Assistive Devices Have you fallen in the past year?: No 12/17/24 0855 D> Date _ Clement Lewis MD Cosignrichy Signature: Date (if applicable) CC: Dr. Shira Pavon MD ~ [facility]08-06-2025 Progress note Author Clement Lewis [facility] Note Date/Time December 17, 2024 8:5 5am [facility] [place] [address] OFFICE VISIT Date of Service: 12/17/24817 MR#: [id number] Acct: [id number] Name: BASSEM YEE Rep #: [id number] : 1945 From: Clement Lewis MD Age/Sex: 79/M Location: [facility] Status: Signed HPI Subjective Date of Service 12/17/24 Chief Complaint F/U for CLL/SLL History of Present Illness 79 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 Had TURP on 12/01/2020. Pathology show CLL/SLL. He was found to have Lymphocytosis in May [address] Pavon. He was referred for further evaluation. Flow cytometry showed CLL on 01/03/2021, CD38 positive, IgVH negative, 46,XY,add(11)(p15),del(11)(q21q25)[12]/46,XY[8]. CT on 12/25/2022 showed small mediastinal nodes, enlarged prostate, no pelvic nodes. He was on observation, admitted with another bout of pneumonia with shock to the hospital in [place]. Came to clinic because of episodes of fever, he has recorded a temperature of 102 over August/September. IgG WNL. He had a PET/CT on 2024 which showed spiculated hypermetabolic right upper lobe lung mass, hypermetabolic activity in right parotid mass. Had a CT guided biopsy of right lung on 11/21/2023 was negative for malignancy. Comes for follow-up to start therapy. He still getting episodes of fever. 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 History of leukemia Gastric reflux COPD (chronic obstructive pulmonary disease) Surgical History History of parotid gland removal Hx of transurethral resection of prostate (12/01/20) Status post incision and drainage Status post heart valve replacement Family History Brother Cancer Mother Heart disease Social History Smoking Status: Former smoker alcohol intake: never substance use type: does not use Intake Vital Signs 12/04/24 14:27 12/17/24 08:19 Height 5 ft 8 in 5 ft 8 in Weight: 63.163 kg BMI 21.2 BP 117/65 Blood Pressure Location Lt brachial Position Sitting Respiration 18 Pulse 61 Pulse Source Monitor Temp 98.4 F Temperature Source Temporal Artery Pulse Oximetry (%) 98 Oxygen Delivery Method room air Intake Accompanied by: Self Is patient in pain?: No Allergies Sulfa (Sulfonamide Antibiotics) Allergy (Verified 12/17/24 08:20) Swelling Medications ?Medication ?Instructions ?Recorded ?Confirmed ?Type atorvastatin 20 mg tablet 20 mg PO QDAY 03/19/2412/17 History famotidine 20 mg tablet 20 mg PO QDAY 03/19/2412/17 History lactobacillus combination no.9 4 4,000 mmu cells PO QD AY 07/24/24 12/17/24 History billion cell capsule (Adult 50 Plus Probiotic) doxycycline hyclate 100 mg tablet 100 mg PO QDAY 10/0212/17/24 History allopurinol 300 mg tablet 300 mg PO QDAY 30 days #30 t abs 12/04/24 12/17/24 Rx albuterol sulfate 90 mcg/actuation 2 puff inhalation Q 4-6H PRN 12/05/24 12/17/24 Rx aerosol inhaler (ProAir HFA) shortness of breath or wh eezing #8.5 grams fluticasone fur. 200 mcg-umeclid 1 inh inhalation Q24H #3 ea 12/09/24 12/17/24 Rx 62.5 mcg-vilant 25 mcg inhalat.powder (Trelegy Ellipta) Have you fallen in the past year?: No Central Venous Access Central Venous Access: No Exam Physical Exam Narrative PS 1-Fevers Const alert, oriented x3 and no apparent distress General Appearance: cooperative and comfortable HEENT normocephalic, external ears normal and external nose normal Neck full ROM, supple and no meningeal signs Lymph Lymphatic: no lymphadenopathy noted Chest inspection of chest normal Resp normal respiratory effort and clear to auscultation bilaterally Cardio regular rate, regular rhythm, S1 normal heart sound, S2 normal heart sound and no murmurs GI normal to inspection, nondistended, normoactive bowel sounds no CVA tenderness Back/Spine no CVA tenderness and thoracic and lumbar spine normal to inspection Extremity normal to inspection and no clubbing, cyanosis or edema Skin no rashes or lesions noted Neuro oriented x3, CN's II-XII intact bilaterally, moves all extremities and no focal motor deficits Psych mental status grossly normal Coding Level of Care Code Off vis,est,level 5 Exam Problem Focused Diagnoses Lung nodule R91.1 CLL (chronic lymphocytic leukemia) C91.10 Parotid mass K11.8 Chemotherapy management, encounter for Z51.11 Encounter for monoclonal antibody treatment for malignancy Z51.12 Assessment and Plan Assessment and Plan (1) Lung nodule: Status: Acute Comment: 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 Plan: To continue observation. (2) CLL (chronic lymphocytic leukemia): Status: Chronic Comment: CLL/SLL, Lymphocytosis with Prostate infiltration and abdominal adenopathy, CD38 positive, IgVH negative, 46,XY,add(11)(p15),del(11)(q21q25)[12]/46,XY[8]. Comes to start therapy with Bendeka and Rituxan because of fevers, discussed risks, benefits and side effects, Pt accepted to proceed with therapy. Counts and chemistry reviewed, Ok for therapy. Plan: To proceed with therapy with Bendeka and Rituxan C1D1 today, D2 tomorrow To continue Allopurinol 300mg. (3) Parotid mass: Status: Chronic Comment: R parotid mass on CT done on 12/25/2022. 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 (4) Chemotherapy management, encounter for: Status: Acute Comment: Counts and chemistry reviewed, Ok for therapy. Plan: To proceed with Bendeka C1D1 today, D2 tomorrow. (5) Encounter for monoclonal antibody treatment for malignancy: Status: Acute Plan: To proceed with Rituxan D1 today. Plan Details Follow Up: 2 Weeks Clinical Quality Measures Falls Risk Screening/Assistive Devices Have you fallen in the past year?: No 12/17/24 0855 <Electronically signed by Clement Jorgensen> Date _ Clement Lewis MD Cosigner Signature: Date (if applicable) CC: Dr. Shira Pavon MD ~ [facility] Work Phone: 1(422) 741-321507-18-2025 Procedure [facility]monary Services/Neurology [address] [place] [address] MR#: [id number] Acct: [id number] Name: BASSEM YEE Rep #:[id number] : 1945 79 From: Magdi Strauss DO Referring Dr: Magdi Strauss DO Status : REG CLI Location: PSN Date: Sex: M C PSN 6 Minute Walk Test 6 Minute Walk Test 6 Minute Walk Test: 6 Minute Walk Test PSN:6-Minute Walk Test Start: 11/27/24 12:55 Freq: Status: Active Protocol: [id number].[id number] Document 11/27/24 12:56 DEEPAK (Rec: 11/27/24 12:57 [id number]) 6 Minute Walk Test Date Performed 11/27/24 Time Performed 12:15 Height 5 ft 8 in Weight: 134 lb Weight in Pounds 134.[address]: Magdi Strauss Assistive device None used: Pre-test Oxygen Delivery Room Air Method Pulse Ox (%) 96 Pulse Rate (60-100 86 beats/min) Dyspnea Tyler Scale ( 1 0-10) Exertion Tyler Scale 6 (6-20) 1st minute Oxygen Delivery Room Air Method Pulse Ox (%) 96 Pulse Rate (60-100 100 beats/min) 2nd minute Oxygen Delivery Room Air Method Pulse Ox (%) 95 Pulse Rate (60-100 102 H beats/min) 3rd minute Oxygen Delivery Room Air Method Pulse Ox (%) 95 Pulse Rate (60-100 101 H beats/min) 4th minute Oxygen Delivery Room Air Method Pulse Ox (%) 93 Pulse Rate (60-100 99 beats/min) 5th minute Oxygen Delivery Room Air Method Pulse Ox (%) 95 Pulse Rate (60-100 101 H beats/min) 6th minute Oxygen Delivery Room Air Method Pulse Ox (%) 96 Pulse Rate (60-100 100 beats/min) Dyspnea Tyler Scale ( 4 0-10) Exertion Tyler Scale 13 (6-20) Post-test Oxygen Delivery Room Air Method Pulse Ox (%) 98 Pulse Rate (60-100 88 beats/min) Full Laps Walked 18 Partial Lap, Number 6 of Tiles Walked Total Distance 1068 Walked (ft) Interpretation Interpretation: The patient ambulated 1068 feet over the course of 6 minutes beginning on room air without assistive devices. Pretesting oxygen saturation was noted to be 96%on room air. With ambulation, the haily oxygen saturation was 93%. There was no significant exertional oxygen desaturation. Recommendations Recommendations: There is no indication for the use of supplemental oxygen at this time. 11/28/24 1250 O> Date _ Magdi Strauss DO CC: ~ Date Dictated: 11/28/24 1249 Date Transcribed: 11/28/24 124 Glove Cuffer: Dr. Magdi Strauss, DO Signed [facility]07-10-2025 Radiology Diagnostic study note [facility] Imaging Services [address] [place] [address] Chest Insp/Exp 2 View MR#: [id number] Acct: [id number] Name: BASSEM YEE Rep #: [id number] : 1945 M 79 From: Goyo Lombardi MD PCP: Dr. Shira Pavon MD Status: PATRIA MONTEZ Study:Chest Insp/Exp 2 View Date of Exam: 11/20/24 Exam# [id number] Ordering Dr: Juma Adam i, MD EXAM: Inspiration expiration views. CLINICAL HISTORY: Status post right lung biopsy. COMPARISON: Prior study done earlier in the day. TECHNIQUE: Inspiration expiration views. FINDINGS: Stable small right apical pneumothorax following the biopsy. The patient is asymptomatic. RAD/Chest Insp/Exp 2 View IMPRESSION: Stable small right apical pneumothorax following the right lung biopsy. The patient is asymptomatic. Reading Location: [place] [address] CC: Dr. Juma Lombardi MD; Dr. Shira Pavon MD ~ Glove Cuffer: Signed [facility]07-10-2025 Radiology Diagnostic study note [facility] Imaging Services [address] [place], [place] [id number] Biopsy/Inj or Needle Placement MR#: [id number] Acct: [id number] Name: BASSEM YEE Rep #: [id number] : 1945 M 79 From: Goyo Lombardi MD PCP: Dr. Shira Pavon MD Status: PATRIA MONTEZ Study:Biopsy/Inj or Needle Placement Date of Exam: 11/20/24 Exam# [id number] Ordering Dr: Billie Sheriff NP DOLL SURGEON-C EXAM: CT-guided biopsy of the right upper lobe mass. CLINICAL HISTORY: Right upper lobe pulmonary mass. COMPARISON: Prior PET scan dated November 04, 2024. TECHNIQUE: Dose report: CTDI L volume: 18.99. DLP: 302.79 CT-guided core biopsy of the right upper lobe nodule. The patient was in the supine position. Conscious sedation was performed. The patient received 2 mgof Versed and 50 mcg of fentanyl intravenously. Conscious sedation was started at 9:08 a.m. and terminated at 9:35 a.m.. The patient was independently monitored by the department nurse. The overlying skin was prepped and draped in the usual sterile fashion. Following local anesthetic application and direct fluoroscopic guidance, a 20 gauge core biopsy needle was placed into the mass inthe right upper lobe. 9 core biopsies were obtained. The specimen was deemed adequate by the pathologist. The patient tolerated the procedure well. No immediate complication is seen. FINDINGS: CT-guided core biopsies of the right upper lobe nodule. CT/Biopsy/Inj or Needle Placement IMPRESSION: Successful CT-guided core biopsies of the right upper lobe pulmonary nodule. The patient tolerated the procedure well. Reading Location: [place] [address] CC: JAROD Del Rio; Dr. Shira Pavon MD ~ Glove Cuffer: Signed [facility]07-10-2025 Radiology Diagnostic study note [facility] Imaging Services [address] [place] [address] [id number] Chest Insp/Exp 2 View MR#: [id number] Acct: [id number] Name: BASSEM YEE Rep #: [id number] : 1945 M 79 From: Yamel Barakat MD PCP: Dr. Shira Pavon MD Status: REG C TC Study:Chest Insp/Exp 2 View Date of Exam: 11/20/24 Exam# [id number] Ordering Dr: Juma Adam i, MD EXAM: XR Chest, 1 View CLINICAL INDICATION: POST LUNG BIOPSY TECHNIQUE: Frontal view of the chest with expiration and inspiration. COMPARISON: No relevant prior studies available. FINDINGS: LUNGS AND PLEURAL SPACES: Patchy airspace disease of the right upper lung fieldcould be secondary to recent procedure. Small right apical pneumothorax. Hyperlucent lungs. Flattening of the diaphragm. HEART: Unremarkable. No cardiomegaly. MEDIASTINUM: Unremarkable. Normal mediastinal contour. BONES/JOINTS: Unremarkable. No acute fracture. RAD/Chest Insp/Exp 2 View IMPRESSION: 1. Patchy airspace disease of the right upper lung field could be secondary to recent procedure. Small right apical pneumothorax. 2. Suggestion of COPD. Reading Location[facility] CC: Dr. Juma Lombardi MD; Dr. Shira Pavon MD ~ Glove Cuffer: Signed [facility]07-02-2025 Evaluation note* Diagnosis Onset Date Resolution Status Admit Date CLL (chronic lymphocytic leukemia) c hronic November 12, 2024 10:29am COPD (chronic obstructive pulmonary disease) chronic November 12 10:29am Lung nodule acute November 13 2:56pm CLL (chronic lymphocytic leukemia) c hronic November 13, 2024 2:56pm Parotid mass chronic November 13 2:56pm Hypoxemia acute December 03 8:13am CLL (chronic lymphocytic leukemia) c hronic December 03, 2024 8:13am COPD (chronic obstructive pulmonary disease) chronic December 03 8:13am Lung nodule acute December 04 2:22pm CLL (chronic lymphocytic leukemia) c hronic December 04, 2024 2:22pm Parotid mass chronic December 04, 025 2:22pm Chemotherapy management, enc ounter for acute December 17, 2024 7:29am Encounter for monoclonal ant ibody treatment for malignancy acute December 17, 2024 7:29am Lung nodule acute December 17, 025 7:29am CLL (chronic lymphocytic leukemia) c hronic December 17, 2024 7:29am Parotid mass chronic December 17, 2024 7:29am Encounter for insertion of v enous access port acute December 23 12:12pm CLL (chronic lymphocytic leukemia) c hronic December 23, 2024 12:12pm Chemotherapy management, enc ounter for acute December 31 8:21am Encounter for monoclonal ant ibody treatment for malignancy acute December 31, 2024 8:21am Lung nodule acute December 31, 2024 8:21am CLL (chronic lymphocytic leukemia) c hronic December 31, 2024 8:21am Parotid mass chronic December 31, 2024 8:21am Chemotherapy management, enc ounter for acute January 14 025 8:05am Encounter for monoclonal ant ibody treatment for malignancy acute Sept2024 8:05am Lung nodule acute January 8:05am CLL (chronic lymphocytic leukemia) c hronic January 14, 2025 8:05am Parotid mass chronic January 8:05am Hypoxemia acute January 20, 2025 11:11am CLL (chronic lymphocytic leukemia) c hronic January 20, 2025 11:11am COPD (chronic obstructive pulmonary disease) chronic January 11:11am Fever acute January 8:03am CLL (chronic lymphocytic leukemia) c hronic January 26, 2025 8:03am Parotid mass chronic January 262024 8:03am CLL (chronic lymphocytic leukemia) c hronic February 09, 2025 8:04am Parotid mass chronic February 092024 8:04am Fever of unknown origin acute O ctober 2024 2:39pm CLL (chronic lymphocytic leukemia) c hronic February 16, 2025 2:39pm Hypogammaglobulinemia chronic Feb samuel 2024 2:39pm Parotid mass chronic February 16, 2025 2:39pm Fever of unknown origin acute O ctober 2024 7:38am CLL (chronic lymphocytic leukemia) c hronic February 24, 2025 7:38am Hypogammaglobulinemia chronic Feb samuel 2024 7:38am Parotid mass chronic February 7:38am CLL (chronic lymphocytic leukemia) c hronic March 09, 2025 8:37am Hypogammaglobulinemia chronic Feb samuel 2024 8:37am Parotid mass chronic February 8:37am [facility] Work Phone: 1(802) 728-605106-19-2025 Evaluation note* Diagnosis Onset Date Resolution Status Admit Date CLL (chronic lymphocytic leukemia) chronic October 30, 2024 9:56am Parotid mass chronic October 30, 2 025 9:56am CLL (chronic lymphocytic leukemia) chronic November 12, 2024 1 0:29am COPD (chronic obstructive pulmonary disease) chronic November 12 10:29am Lung nodule acute November 13 2:56pm CLL (chronic lymphocytic leukemia) chronic November 13, 2024 2 :56pm Parotid mass chronic November 13 2:56pm Hypoxemia acute December 03 8:13am CLL (chronic lymphocytic leukemia) chronic December 03, 2024 8:13am COPD (chronic obstructive pulmonary disease) chronic December 03 8:13am Lung nodule acute December 04 2:22pm CLL (chronic lymphocytic leukemia) chronic December 04, 2024 2:22pm Parotid mass chronic December 04, 2 025 2:22pm Chemotherapy management, encounter for acute December 17, 2024 7:29am Encounter for monoclonal antibody treatment for malignancy acute December 17, 2024 7:29am Lung nodule acute December 17, 025 7:29am CLL (chronic lymphocytic leukemia) chronic December 17, 2024 7:29am Parotid mass chronic December 17, 2024 7:29am Encounter for insertion of venous access port acute December 23, 2024 12:12pm CLL (chronic lymphocytic leukemia) chronic December 23 12:12pm Chemotherapy management, encounter for acute December 31 8:21am Encounter for monoclonal antibody treatment for malignancy acute December 31 8:21am Lung nodule acute December 31, 2024 8:21am CLL (chronic lymphocytic leukemia) chronic December 31 8:21am Parotid mass chronic December 31, 2024 8:21am Chemotherapy management, encounter for acute January 14 025 8:05am Encounter for monoclonal antibody treatment for malignancy acute January 14, 025 8:05am Lung nodule acute January 8:05am CLL (chronic lymphocytic leukemia) chronic January 14, 025 8:05am Parotid mass chronic January 8:05am Hypoxemia acute January 20, 2025 11:11am CLL (chronic lymphocytic leukemia) chronic January 20, 025 11:11am COPD (chronic obstructive pulmonary disease) chronic January 11:11am Fever acute January 8:03am CLL (chronic lymphocytic leukemia) chronic January 26, 2025 8:03am Parotid mass chronic January 262024 8:03am CLL (chronic lymphocytic leukemia) chronic February 09, 2025 8:04am Parotid mass chronic February 092024 8:04am [facility] Work Phone: 1(451) 514-993606-19-2025 Evaluation note* Diagnosis Onset Date Resolution Status Admit Date CLL (chronic lymphocytic leukemia) c hronic October 30, 2024 9:56am Parotid mass chronic October 30, 2 025 9:56am CLL (chronic lymphocytic leukemia) c hronic November 12, 2024 10:29am COPD (chronic obstructive pulmonary disease) chronic November 12 10:29am Lung nodule acute November 13 2:56pm CLL (chronic lymphocytic leukemia) c hronic November 13, 2024 2:56pm Parotid mass chronic November 13 2:56pm Hypoxemia acute December 03 8:13am CLL (chronic lymphocytic leukemia) c hronic December 03, 2024 8:13am COPD (chronic obstructive pulmonary disease) chronic December 03 8:13am Lung nodule acute December 04 2:22pm CLL (chronic lymphocytic leukemia) c hronic December 04, 2024 2:22pm Parotid mass chronic December 04, 025 2:22pm Chemotherapy management, enc ounter for acute December 17, 2024 7:29am Encounter for monoclonal ant ibody treatment for malignancy acute December 17, 2024 7:29am Lung nodule acute December 17, 025 7:29am CLL (chronic lymphocytic leukemia) c hronic December 17, 2024 7:29am Parotid mass chronic December 17, 2024 7:29am Encounter for insertion of v enous access port acute December 23 12:12pm CLL (chronic lymphocytic leukemia) c hronic December 23, 2024 12:12pm Chemotherapy management, enc ounter for acute December 31 8:21am Encounter for monoclonal ant ibody treatment for malignancy acute December 31, 2024 8:21am Lung nodule acute December 31, 2024 8:21am CLL (chronic lymphocytic leukemia) c hronic December 31, 2024 8:21am Parotid mass chronic December 31, 2024 8:21am Chemotherapy management, enc ounter for acute January 14 025 8:05am Encounter for monoclonal ant ibody treatment for malignancy acute Sept2024 8:05am Lung nodule acute January 8:05am CLL (chronic lymphocytic leukemia) c hronic January 14, 2025 8:05am Parotid mass chronic January 8:05am Hypoxemia acute January 20, 2025 11:11am CLL (chronic lymphocytic leukemia) c hronic January 20, 2025 11:11am COPD (chronic obstructive pulmonary disease) chronic January 11:11am Fever acute January 8:03am CLL (chronic lymphocytic leukemia) c hronic January 26, 2025 8:03am Parotid mass chronic January 262024 8:03am CLL (chronic lymphocytic leukemia) c hronic February 09, 2025 8:04am Parotid mass chronic February 092024 8:04am Fever of unknown origin acute O ctober 2024 2:39pm Hypogammaglobulinemia acute Oct samuel 2024 2:39pm CLL (chronic lymphocytic leukemia) c hronic February 16, 2025 2:39pm Parotid mass chronic February 16, 2025 2:39pm [facility] Work Phone: 1(650) 108-876205-22-2025 Evaluation note* Diagnosis Onset Date Resolution Status Admit Date CLL (chronic lymphocytic leukemia) chronic October 02, 2024 1 0:23am Parotid mass chronic October 02 10:23am CLL (chronic lymphocytic leukemia) chronic October 30, 2024 9:56am Parotid mass chronic October 30, 025 9:56am CLL (chronic lymphocytic leukemia) chronic November 12, 2024 1 0:29am COPD (chronic obstructive pulmonary disease) chronic November 12 10:29am Lung nodule acute November 13 2:56pm CLL (chronic lymphocytic leukemia) chronic November 13, 2024 2 :56pm Parotid mass chronic November 13 2:56pm Hypoxemia acute December 03 8:13am CLL (chronic lymphocytic leukemia) chronic December 03, 2024 8:13am COPD (chronic obstructive pulmonary disease) chronic December 03 8:13am Lung nodule acute December 04 2:22pm CLL (chronic lymphocytic leukemia) chronic December 04, 2024 2:22pm Parotid mass chronic December 04, 2 025 2:22pm Chemotherapy management, encounter for acute December 17, 2024 7:29am Encounter for monoclonal antibody treatment for malignancy acute December 17, 2024 7:29am Lung nodule acute December 17, 2 025 7:29am CLL (chronic lymphocytic leukemia) chronic December 17, 2024 7:29am Parotid mass chronic December 17, 2024 7:29am Encounter for insertion of venous access port acute December 23, 2024 12:12pm CLL (chronic lymphocytic leukemia) chronic December 23 12:12pm Chemotherapy management, encounter for acute December 31 8:21am Encounter for monoclonal antibody treatment for malignancy acute December 31 8:21am Lung nodule acute December 31, 2024 8:21am CLL (chronic lymphocytic leukemia) chronic December 31 8:21am Parotid mass chronic December 31, 2024 8:21am Chemotherapy management, encounter for acute January 14, 025 8:05am Encounter for monoclonal antibody treatment for malignancy acute January 14, 2 025 8:05am Lung nodule acute January 8:05am CLL (chronic lymphocytic leukemia) chronic January 14, 2 025 8:05am Parotid mass chronic January 8:05am [facility] Work Phone: 1(160) 909-690905-22-2025 Evaluation note* Diagnosis Onset Date Resolution Status Admit Date CLL (chronic lymphocytic leukemia) chronic October 02, 2024 1 0:23am Parotid mass chronic October 02 10:23am CLL (chronic lymphocytic leukemia) chronic October 30, 2024 9:56am Parotid mass chronic October 30, 025 9:56am CLL (chronic lymphocytic leukemia) chronic November 12, 2024 1 0:29am COPD (chronic obstructive pulmonary disease) chronic November 12 10:29am Lung nodule acute November 13 2:56pm CLL (chronic lymphocytic leukemia) chronic November 13, 2024 2 :56pm Parotid mass chronic November 13 2:56pm Hypoxemia acute December 03 8:13am CLL (chronic lymphocytic leukemia) chronic December 03, 2024 8:13am COPD (chronic obstructive pulmonary disease) chronic December 03 8:13am Lung nodule acute December 04 2:22pm CLL (chronic lymphocytic leukemia) chronic December 04, 2024 2:22pm Parotid mass chronic December 04, 2 025 2:22pm Chemotherapy management, encounter for acute December 17, 2024 7:29am Encounter for monoclonal antibody treatment for malignancy acute December 17, 2024 7:29am Lung nodule acute December 17, 2 025 7:29am CLL (chronic lymphocytic leukemia) chronic December 17, 2024 7:29am Parotid mass chronic December 17, 2024 7:29am Encounter for insertion of venous access port acute December 23, 2024 12:12pm CLL (chronic lymphocytic leukemia) chronic December 23 12:12pm Chemotherapy management, encounter for acute December 31 8:21am Encounter for monoclonal antibody treatment for malignancy acute December 31 8:21am Lung nodule acute December 31, 2024 8:21am CLL (chronic lymphocytic leukemia) chronic December 31 8:21am Parotid mass chronic December 31, 2024 8:21am Chemotherapy management, encounter for acute January 14 025 8:05am Encounter for monoclonal antibody treatment for malignancy acute January 14, 025 8:05am Lung nodule acute January 8:05am CLL (chronic lymphocytic leukemia) chronic January 14, 025 8:05am Parotid mass chronic January 8:05am Hypoxemia acute January 20, 2025 11:11am CLL (chronic lymphocytic leukemia) chronic January 20, 025 11:11am COPD (chronic obstructive pulmonary disease) chronic January 11:11am [facility] Work Phone: 1(421) 580-959305-22-2025 Evaluation note* Diagnosis Onset Date Resolution Status Admit Date CLL (chronic lymphocytic leukemia) chronic October 02, 2024 1 0:23am Parotid mass chronic October 02 10:23am CLL (chronic lymphocytic leukemia) chronic October 30, 2024 9:56am Parotid mass chronic October 30, 025 9:56am CLL (chronic lymphocytic leukemia) chronic November 12, 2024 1 0:29am COPD (chronic obstructive pulmonary disease) chronic November 12 10:29am Lung nodule acute November 13 2:56pm CLL (chronic lymphocytic leukemia) chronic November 13, 2024 2 :56pm Parotid mass chronic November 13 2:56pm Hypoxemia acute December 03 8:13am CLL (chronic lymphocytic leukemia) chronic December 03, 2024 8:13am COPD (chronic obstructive pulmonary disease) chronic December 03 8:13am Lung nodule acute December 04 2:22pm CLL (chronic lymphocytic leukemia) chronic December 04, 2024 2:22pm Parotid mass chronic December 04, 025 2:22pm Chemotherapy management, encounter for acute December 17, 2024 7:29am Encounter for monoclonal antibody treatment for malignancy acute December 17, 2024 7:29am Lung nodule acute December 17, 025 7:29am CLL (chronic lymphocytic leukemia) chronic December 17, 2024 7:29am Parotid mass chronic December 17, 2024 7:29am Encounter for insertion of venous access port acute December 23, 2024 12:12pm CLL (chronic lymphocytic leukemia) chronic December 23 12:12pm Chemotherapy management, encounter for acute December 31 8:21am Encounter for monoclonal antibody treatment for malignancy acute December 31 8:21am Lung nodule acute December 31, 2024 8:21am CLL (chronic lymphocytic leukemia) chronic December 31 8:21am Parotid mass chronic December 31, 2024 8:21am Chemotherapy management, encounter for acute January 14 8:05am Encounter for monoclonal antibody treatment for malignancy acute January 14, 025 8:05am Lung nodule acute January 8:05am CLL (chronic lymphocytic leukemia) chronic January 14, 025 8:05am Parotid mass chronic January 8:05am Hypoxemia acute January 20, 2025 11:11am CLL (chronic lymphocytic leukemia) chronic January 20, 025 11:11am COPD (chronic obstructive pulmonary disease) chronic January 11:11am Fever acute January 8:03am CLL (chronic lymphocytic leukemia) chronic January 26, 2025 8:03am Parotid mass chronic January 262024 8:03am [facility] Work Phone: 1(197) 384-121704-23-2025 Evaluation note* Diagnosis Onset Date Resolution Status Admit Date CAD (coronary artery disease) acute September 03, 2024 1:12pm S/P AVR (aortic valve replacement) acute September 03, 2024 1:12pm S/P MVR (mitral valve replacement) acute September 03, 2024 1:12pm S/P TVR (tricuspid valve repair) acute September 03, 2024 1:12pm CLL (chronic lymphocytic leukemia) chronic October 02, 2024 1 0:23am Parotid mass chronic October 02 10:23am CLL (chronic lymphocytic leukemia) chronic October 30, 2024 9:56am Parotid mass chronic October 30, 025 9:56am CLL (chronic lymphocytic leukemia) chronic November 12, 2024 1 0:29am COPD (chronic obstructive pulmonary disease) chronic November 12 10:29am Lung nodule acute November 13 2:56pm CLL (chronic lymphocytic leukemia) chronic November 13, 2024 2 :56pm Parotid mass chronic November 13 2:56pm [facility] Work Phone: 1(714) 546-245604-23-2025 Evaluation note* Diagnosis Onset Date Resolution Status Admit Date CAD (coronary artery disease) acute September 03, 2024 1:12pm S/P AVR (aortic valve replacement) acute September 03, 2024 1:12pm S/P MVR (mitral valve replacement) acute September 03, 2024 1:12pm S/P TVR (tricuspid valve repair) acute September 03, 2024 1:12pm CLL (chronic lymphocytic leukemia) chronic October 02, 2024 1 0:23am Parotid mass chronic October 02 10:23am CLL (chronic lymphocytic leukemia) chronic October 30, 2024 9:56am Parotid mass chronic October 30, 025 9:56am CLL (chronic lymphocytic leukemia) chronic November 12, 2024 1 0:29am COPD (chronic obstructive pulmonary disease) chronic November 12 10:29am Lung nodule acute November 13 2:56pm CLL (chronic lymphocytic leukemia) chronic November 13, 2024 2 :56pm Parotid mass chronic November 13 2:56pm CLL (chronic lymphocytic leukemia) chronic December 03, 2024 8:13am COPD (chronic obstructive pulmonary disease) chronic December 03 8:13am [facility] Work Phone: 1(760) 872-565504-23-2025 Evaluation note* Diagnosis Onset Date Resolution Status Admit Date CAD (coronary artery disease) acute September 03, 2024 1:12pm S/P AVR (aortic valve replacement) acute September 03, 2024 1:12pm S/P MVR (mitral valve replacement) acute September 03, 2024 1:12pm S/P TVR (tricuspid valve repair) acute September 03, 2024 1:12pm CLL (chronic lymphocytic leukemia) chronic October 02, 2024 1 0:23am Parotid mass chronic October 02 10:23am CLL (chronic lymphocytic leukemia) chronic October 30, 2024 9:56am Parotid mass chronic October 30, 2 025 9:56am CLL (chronic lymphocytic leukemia) chronic November 12, 2024 1 0:29am COPD (chronic obstructive pulmonary disease) chronic November 12 10:29am Lung nodule acute November 13 2:56pm CLL (chronic lymphocytic leukemia) November 13, 2024 2 :56pm Parotid mass chronic November 13 2:56pm Hypoxemia acute December 03 8:13am CLL (chronic lymphocytic leukemia) chronic December 03, 2024 8:13am COPD (chronic obstructive pulmonary disease) chronic December 03 8:13am Lung nodule acute December 04 2:22pm CLL (chronic lymphocytic leukemia) chronic December 04, 2024 2:22pm Parotid mass chronic December 04, 2 025 2:22pm [facility] Work Phone: 1(971) 359-436804-23-2025 Evaluation note* Diagnosis Onset Date Resolution Status Admit Date CAD (coronary artery disease) acute September 03, 2024 1:12pm S/P AVR (aortic valve replacement) acute September 03, 2024 1:12pm S/P MVR (mitral valve replacement) acute September 03, 2024 1:12pm S/P TVR (tricuspid valve repair) acute September 03, 2024 1:12pm CLL (chronic lymphocytic leukemia) chronic October 02, 2024 1 0:23am Parotid mass chronic October 02 10:23am CLL (chronic lymphocytic leukemia) chronic October 30, 2024 9:56am Parotid mass chronic October 30, 025 9:56am CLL (chronic lymphocytic leukemia) chronic November 12, 2024 1 0:29am COPD (chronic obstructive pulmonary disease) chronic November 12 10:29am Lung nodule acute November 13 2:56pm CLL (chronic lymphocytic leukemia) November 13, 2024 2 :56pm Parotid mass chronic November 13 2:56pm Hypoxemia acute December 03 8:13am CLL (chronic lymphocytic leukemia) chronic December 03, 2024 8:13am COPD (chronic obstructive pulmonary disease) chronic December 03 8:13am Lung nodule acute December 04 2:22pm CLL (chronic lymphocytic leukemia) chronic December 04, 2024 2:22pm Parotid mass chronic December 04, 2 025 2:22pm Chemotherapy management, encounter for acute December 17, 2024 7:29am Encounter for monoclonal antibody treatment for malignancy acute December 17, 2024 7:29am Lung nodule acute December 17, 2 025 7:29am CLL (chronic lymphocytic leukemia) chronic December 17, 2024 7:29am Parotid mass chronic December 17, 2024 7:29am [facility] Work Phone: 1(595) 530-655604-23-2025 Evaluation note* Diagnosis Onset Date Resolution Status Admit Date CAD (coronary artery disease) acute September 03, 2024 1:12pm S/P AVR (aortic valve replacement) acute September 03, 2024 1:12pm S/P MVR (mitral valve replacement) acute September 03, 2024 1:12pm S/P TVR (tricuspid valve repair) acute September 03, 2024 1:12pm CLL (chronic lymphocytic leukemia) chronic October 02, 2024 1 0:23am Parotid mass chronic October 02 10:23am CLL (chronic lymphocytic leukemia) chronic October 30, 2024 9:56am Parotid mass chronic October 30, 025 9:56am CLL (chronic lymphocytic leukemia) chronic November 12, 2024 1 0:29am COPD (chronic obstructive pulmonary disease) chronic November 12 10:29am Lung nodule acute November 13 2:56pm CLL (chronic lymphocytic leukemia) chronic November 13, 2024 2 :56pm Parotid mass chronic November 13 2:56pm Hypoxemia acute December 03 8:13am CLL (chronic lymphocytic leukemia) chronic December 03, 2024 8:13am COPD (chronic obstructive pulmonary disease) chronic December 03 8:13am Lung nodule acute December 04 2:22pm CLL (chronic lymphocytic leukemia) chronic December 04, 2024 2:22pm Parotid mass chronic December 04, 2 025 2:22pm Chemotherapy management, encounter for acute December 17, 2024 7:29am Encounter for monoclonal antibody treatment for malignancy acute December 17, 2024 7:29am Lung nodule acute December 17, 2 025 7:29am CLL (chronic lymphocytic leukemia) chronic December 17, 2024 7:29am Parotid mass chronic December 17, 2024 7:29am Encounter for insertion of venous access port acute December 23, 2024 12:12pm CLL (chronic lymphocytic leukemia) chronic December 23 12:12pm Chemotherapy management, encounter for acute December 31 8:21am Encounter for monoclonal antibody treatment for malignancy acute December 31 8:21am Lung nodule acute December 31, 2024 8:21am CLL (chronic lymphocytic leukemia) chronic December 31 8:21am Parotid mass chronic December 31, 2024 8:21am [facility] Work Phone: 1(825) 346-245103-20-2025 Evaluation note* Diagnosis Onset Date Resolution Status Admit Date CLL (chronic lymphocytic leukemia) chronic July 31, 2024 2:34pm Parotid mass chronic July 31, 2024 2:34pm CAD (coronary artery disease) acute September 03, 2024 1:12pm S/P AVR (aortic valve replacement) acute September 03, 2024 1:12pm S/P MVR (mitral valve replacement) acute September 03, 2024 1:12pm S/P TVR (tricuspid valve repair) acute September 03, 2024 1:12pm CLL (chronic lymphocytic leukemia) chronic October 02, 2024 1 0:23am Parotid mass chronic October 02 10:23am CLL (chronic lymphocytic leukemia) chronic October 30, 2024 9:56am Parotid mass chronic October 30, 025 9:56am CLL (chronic lymphocytic leukemia) chronic November 12, 2024 1 0:29am COPD (chronic obstructive pulmonary disease) chronic November 12 10:29am Lung nodule acute November 13 2:56pm CLL (chronic lymphocytic leukemia) chronic November 13, 2024 2 :56pm Parotid mass chronic November 13 2:56pm [facility] Work Phone: 1(315) 740-365503-13-2025 Evaluation note* Diagnosis Onset Date Resolution Status Admit Date CLL (chronic lymphocytic leukemia) chronic July 24, 2024 2:31pm Parotid mass chronic July 24, 2024 2:31pm SOB (shortness of breath) on exertion chronic July 24, 2024 2:31pm CLL (chronic lymphocytic leukemia) chronic July 31, 2024 2:34pm Parotid mass chronic July 31, 2024 2:34pm CAD (coronary artery disease) acute September 03, 2024 1:12pm S/P AVR (aortic valve replacement) acute September 03, 2024 1:12pm S/P MVR (mitral valve replacement) acute September 03, 2024 1:12pm S/P TVR (tricuspid valve repair) acute September 03, 2024 1:12pm CLL (chronic lymphocytic leukemia) chronic October 02, 2024 1 0:23am Parotid mass chronic October 02 10:23am CLL (chronic lymphocytic leukemia) chronic October 30, 2024 9:56am Parotid mass chronic October 30, 025 9:56am [facility] [employer] Work Phone: 1(976) 170-897203-13-2025 Evaluation note* Diagnosis Onset Date Resolution Status Admit Date CLL (chronic lymphocytic leukemia) chronic July 24, 2024 2:31pm Parotid mass chronic July 24, 2024 2:31pm SOB (shortness of breath) on exertion chronic July 24, 2024 2:31pm CLL (chronic lymphocytic leukemia) chronic July 31, 2024 2:34pm Parotid mass chronic July 31, 2024 2:34pm CAD (coronary artery disease) acute September 03, 2024 1:12pm S/P AVR (aortic valve replacement) acute September 03, 2024 1:12pm S/P MVR (mitral valve replacement) acute September 03, 2024 1:12pm S/P TVR (tricuspid valve repair) acute September 03, 2024 1:12pm CLL (chronic lymphocytic leukemia) chronic October 02, 2024 1 0:23am Parotid mass chronic October 02 10:23am CLL (chronic lymphocytic leukemia) chronic October 30, 2024 9:56am Parotid mass chronic October 30, 025 9:56am CLL (chronic lymphocytic leukemia) chronic November 12, 2024 1 0:29am COPD (chronic obstructive pulmonary disease) chronic November 12 10:29am Shortness of breath noneactive November 12, 2024 10:29am [facility] [facility] Work Phone: 1(282) 932-554503-13-2025 Evaluation note* Diagnosis Onset Date Resolution Status Admit Date CLL (chronic lymphocytic leukemia) chronic July 24, 2024 2:31pm Parotid mass chronic July 24, 2024 2:31pm SOB (shortness of breath) on exertion chronic July 24, 2024 2:31pm CLL (chronic lymphocytic leukemia) chronic July 31, 2024 2:34pm Parotid mass chronic July 31, 2024 2:34pm CAD (coronary artery disease) acute September 03, 2024 1:12pm S/P AVR (aortic valve replacement) acute September 03, 2024 1:12pm S/P MVR (mitral valve replacement) acute September 03, 2024 1:12pm S/P TVR (tricuspid valve repair) acute September 03, 2024 1:12pm CLL (chronic lymphocytic leukemia) chronic October 02, 2024 1 0:23am Parotid mass chronic October 02 10:23am CLL (chronic lymphocytic leukemia) chronic October 30, 2024 9:56am Parotid mass chronic October 30, 025 9:56am CLL (chronic lymphocytic leukemia) chronic November 12, 2024 1 0:29am COPD (chronic obstructive pulmonary disease) chronic November 12 10:29am CLL (chronic lymphocytic leukemia) chronic November 13, 2024 2 :56pm Parotid mass chronic November 13 2:56pm [facility] Work Phone: 1([phone] 678-271203-08-2025 Note. MICRO - Microbiology PROCEDURE: Blood Culture (bacterial) [*1] SOURCE: Blood BODY SITE: COLLECTED DATE/TIME: 07/13/2024 15:09 EST RECEIVED DATE/TIME: 07/14/2024 14:49 EST START DATE/TIME: 07/14/2024 14:50 EST FREE TEXT SOURCE: FINAL REPORTS Final Report [] Verified Date/Time/Personnel: 07/19/2024 14:59 EST Blood Culture: No Growth at 5 days. PRELIMINARY REPORTS Preliminary Report [] Verified Date/Time/Personnel: 07/14/2024 15:59 EST Culture has been received in lab and is no growth to date. Routine cultures are held for 5 days. Performing Locations *1: This test was performed at: [facility], [address] [place] [address], [id number] , [facility] [id number] Note. MICRO - Microbiology PROCEDURE: Blood Culture (bacterial) [*1] SOURCE: Blood BODY SITE: COLLECTED DATE/TIME: 07/13/2024 15:16 EST RECEIVED DATE/TIME: 07/14/2024 14:49 EST START DATE/TIME: 07/14/2024 14:49 EST FREE TEXT SOURCE: FINAL REPORTS Final Report [] Verified Date/Time/Personnel: 07/19/2024 14:59 EST Blood Culture: No Growth at 5 days. PRELIMINARY REPORTS Preliminary Report [] Verified Date/Time/Personnel: 07/14/2024 15:59 EST Culture has been received in lab and is no growth to date. Routine cultures are held for 5 days. Performing Locations *1: This test was performed at: [address], [address] [place] [address] [id number] Note. MICRO - Microbiology PROCEDURE: Blood Culture (bacterial) [*1] SOURCE: Blood BODY SITE: COLLECTED DATE/TIME: 07/14/2024 00:30 EST RECEIVED DATE/TIME: 07/14/2024 05:53 EST START DATE/TIME: 07/14/2024 05:54 EST FREE TEXT SOURCE: FINAL REPORTS Final Report [] Verified Date/Time/Personnel: 07/19/2024 05:59 EST Blood Culture: No Growth at 5 days. PRELIMINARY REPORTS Preliminary Report [] Verified Date/Time/Personnel: 07/14/2024 06:59 EST Culture has been received in lab and is no growth to date. Routine cultures are held for 5 days. Performing Locations *1: This test was performed at: [address], [address] [place] [address] [id number] Note. MICRO - Microbiology PROCEDURE: Blood Culture (bacterial) [*1] SOURCE: Blood BODY SITE: COLLECTED DATE/TIME: 07/14/2024 00:31 EST RECEIVED DATE/TIME: 07/14/2024 05:53 EST START DATE/TIME: 07/14/2024 05:54 EST FREE TEXT SOURCE: FINAL REPORTS Final Report [] Verified Date/Time/Personnel: 07/19/2024 05:59 EST Blood Culture: No Growth at 5 days. PRELIMINARY REPORTS Preliminary Report [] Verified Date/Time/Personnel: 07/14/2024 06:59 EST Culture has been received in lab and is no growth to date. Routine cultures are held for 5 days. Performing Locations *1: This test was performed at: [address], [id number] [place] [address] [id number] Note. MICRO - Microbiology PROCEDURE: Streptococcus Pneumoniae Urine Antig [^1 *1] SOURCE: Urine, Clean Catch BODY SITE: COLLECTED DATE/TIME: 07/14/2024 10:30 EST RECEIVED DATE/TIME: 07/14/2024 11:00 EST START DATE/TIME: 07/14/2024 11:00 EST FREE TEXT SOURCE: FINAL REPORTS Final Report [] Verified Date/Time/Personnel: 07/14/2024 12:49 EST Presumptive negative for pneumococcal pneumonia, suggesting no current or recent pneumococcal infection. Infection due to Strep pneumoniae cannot be ruled out since the antigen present in the sample may be below the detection limit of the test. Interpretive Data ^1: Streptococcus Pneumoniae Urine Antig This test has not been evaluated on patients taking antibiotics for greater than 24 hours or on patients who have recently completed an antibiotic regimen. The accuracy of this test has not been proven in young children. Performing Locations *1: This test was performed at: [address], [id number] [place] [address] [id number] Note. MICRO - Microbiology PROCEDURE: Legionella Urine Ag [*1] SOURCE: Urine BODY SITE: COLLECTED DATE/TIME: 07/14/2024 10:30 EST RECEIVED DATE/TIME: 07/14/2024 11:00 EST START DATE/TIME: 07/14/2024 11:00 EST FREE TEXT SOURCE: FINAL REPORTS Final Report [] Verified Date/Time/Personnel: 07/14/2024 12:49 EST Presumptive negative for L. pneumophila serogroup 1 antigen in urine, suggesting no recent or current infection. Legionnaire's disease cannot be ruled out since other serogroups and species may also cause disease. Performing Locations *1: This test was performed at: [address], [id number] [place] [address] [id number] NoteDischarge Instructions Discharge Summary [address] [place] [address] [id number] 07/13/2024 Patient: BASSEM YEE Sex: Male : 1945 Age: 78y Thank you for visiting [facility]. You have been evaluated today by Saul Turpin M.D. for the following condition(s): Principal Diagnosis Acute fever. Severe sepsis with shock. No acute organ dysfunction. Pneumonia with sepsis. Patient [facility] Date/Time General Instructions with ExitWriter [facility] [address] [place] [address] [id number] 07/13/2024 Patient: BASSEM YEE Sex: Male : 1945 Age: 78y Thank you for visiting [facility]. You have been evaluated today by Saul Turpin M.D. for the following condition(s): 1 of 2 Discharge Instructions Principal Diagnosis Acute fever. Severe sepsis with shock. No acute organ dysfunction. Pneumonia with sepsis. [address] [place], [place] [id number] Note. MICRO - Microbiology PROCEDURE: Blood Culture (bacterial) [*1] SOURCE: Blood BODY SITE: Anticubital, Left COLLECTED DATE/TIME: 03/05/2024 14:49 EDT RECEIVED DATE/TIME: 03/05/2024 17:47 EDT START DATE/TIME: 03/05/2024 17:47 EDT FREE TEXT SOURCE: FINAL REPORTS Final Report [] Verified Date/Time/Personnel: 03/10/2024 17:59 EDT Blood Culture: No Growth at 5 days. PRELIMINARY REPORTS Preliminary Report [] Verified Date/Time/Personnel: 03/05/2024 18:59 EDT Culture has been received in lab and is no growth to date. Routine cultures are held for 5 days. Performing Locations *1: This test was performed at: [address], [id number] , [facility] [id number] Note. MICRO - Microbiology PROCEDURE: Blood Culture (bacterial) [*1] SOURCE: Blood BODY SITE: COLLECTED DATE/TIME: 03/05/2024 09:40 EDT RECEIVED DATE/TIME: 03/05/2024 17:46 EDT START DATE/TIME: 03/05/2024 17:47 EDT FREE TEXT SOURCE: FINAL REPORTS Final Report [] Verified Date/Time/Personnel: 03/10/2024 17:59 EDT Blood Culture: No Growth at 5 days. PRELIMINARY REPORTS Preliminary Report [] Verified Date/Time/Personnel: 03/05/2024 18:59 EDT Culture has been received in lab and is no growth to date. Routine cultures are held for 5 days. Performing Locations *1: This test was performed at: [facility], [address] [place] [address], [id number] , [facility] [id number] NoteDischarge Instructions Discharge Summary [address] [address] [id number] 03/05/2024 Patient: BASSEM YEE Sex: Male : 1945 Age: 78y Thank you for visiting [facility]. You have been evaluated today by Temo Weller D.O. for the following condition(s): Principal Diagnosis Acute exacerbation of COPD (emphysematous, asthmatic). Bronchopneumonia with hypoxemia. Patient [facility] Date/Time General Instructions with ExitWriter [address] [address] [id number] 03/05/2024 Patient: BASSEM YEE Sex: Male : 1945 Age: 78y Thank you for visiting [facility]. You have been evaluated today by Temo Weller D.O. for the following condition(s): 1 of 2 Discharge Instructions Principal Diagnosis Acute exacerbation of COPD (emphysematous, asthmatic). Bronchopneumonia with hypoxemia. [address]05-15-2024 Note. MICRO - Microbiology PROCEDURE: Blood Culture (bacterial) [*1] SOURCE: Blood BODY SITE: COLLECTED DATE/TIME: 09/21/2023 12:40 EDT RECEIVED DATE/TIME: 09/21/2023 18:43 EDT START DATE/TIME: 09/21/2023 18:44 EDT FREE TEXT SOURCE: Lab [id number] FINAL REPORTS Final Report [] Verified Date/Time/Personnel: 09/26/2023 18:59 EDT Blood Culture: No Growth at 5 days. PRELIMINARY REPORTS Preliminary Report [] Verified Date/Time/Personnel: 09/21/2023 19:59 EDT Culture has been received in lab and is no growth to date. Routine cultures are held for 5 days. Performing Locations *1: This test was performed at: [address], [facility] , [facility])09-26-2023 Note. MICRO - Microbiology PROCEDURE: Blood Culture (bacterial) [*1] SOURCE: Blood BODY SITE: COLLECTED DATE/TIME: 09/21/2023 12:15 EDT RECEIVED DATE/TIME: 09/21/2023 18:37 EDT START DATE/TIME: 09/21/2023 18:41 EDT FREE TEXT SOURCE: [id number]; M/R# [id number]; Lab [id number] FINAL REPORTS Final Report [] Verified Date/Time/Personnel: 09/26/2023 18:59 EDT Blood Culture: No Growth at 5 days. PRELIMINARY REPORTS Preliminary Report [] Verified Date/Time/Personnel: 09/21/2023 19:59 EDT Culture has been received in lab and is no growth to date. Routine cultures are held for 5 days. Performing Locations *1: This test was performed at: [address], [address] [place] [address] (PA)05-24-2019 History of Present illness Narrative* Geraldine Cerda DTR - 05/24/2019 9:12 AM EST Nutrition rescreen completed. Chart reviewed. Patient to be monitored and followed by the diet surveillance technician. * Ismael Ruvalcaba MD - 05/23/2019 7:48 AM EST Hospitalist Progress Note 05/23/2019 12:44 PM Subjective: Admit Date: 05/22/2019 PCP: No primary care provider on file. Interval History: Feels alright, still has cough. No overnight issues. Denies chest pain, sob, abdominal pain, nausea, vomiting, diarrhea, constipation, fevers, or chills. DIET CLEAR LIQUID; Patient Vitals for the past 96 hrs (Last 3 readings): Weight 05/22/19 0340 155 lb (70.3 kg) Medications: dextrose 75 mL/hr at 05/23/19902 pantoprozole (PROTONIX) infusion 8 mg/hr (05/22/19916) sodium chloride flush 10 mL Intravenous 2 times per day enoxaparin 40 mg Subcutaneous Daily mometasone-formoterol 2 puff Inhalation BID finasteride 5 mg Oral Daily metoprolol tartrate 12.5 mg Oral BID rosuvastatin 20 mg Oral Nightly tamsulosin 0.8 mg Oral Daily piperacillin-tazobactam 3.375 g Intravenous Q8H Recent Labs 05/22/19 0418 05/23/19 0055 WBC 28.4* 25.8* HGB 15.4 13.2 PLT 153 141 Recent Labs 05/22/19 0418 05/23/19 0055 NA 138 139 K 4.4 4.2 CL 107 112* CO2 22 22 BUN 23* 21* CREATININE 1.23 1.22 GLUCOSE 115* 103* Recent Labs 05/22/19417 AST 45 ALT 22 BILITOT 1.5* ALKPHOS 57 No results found for: TRIG, HDL, LDLCALC, CHOL Recent Labs 05/22/19417 INR 1.0 No results for input(s): CKTOTAL, CKMB, TROPONINI in the last 72 hours. Objective: Vitals: BP 94/61 Pulse 70 Temp 99 F (37.2 C) (Temporal) Resp 16 Ht 5' 2 (1.575 m) Wt 155lb (70.3 kg) SpO2 95% BMI 28.35 kg/m Pulse Ox: SpO2 Av.4 % Min: 92 % Max: 96 % Supplemental O2: PHYSICAL EXAM: GENERAL: Patient is a well-developed, well-nourished male in no acute distress, alert and oriented x3, appropriate and pleasant conversation. HEAD: Normocephalic, atraumatic. EYES: Pupils equal, round and reactive to light and accommodation, extraocular movements intact. ENT: Moist mucous membranes. No erythema is noted. NECK: Supple. No masses. No lymphadenopathy. CARDIOVASCULAR: Regular rate and rhythm, s1,2 no murmur PULMONARY: Lungs are clear to auscultation bilaterally. ABDOMEN: Soft, nontender, nondistended. Positive bowel sounds. MUSCULOSKELETAL: Strength 5/5 bilaterally in all extremities. Pulses 2+ NEUROLOGIC: Cranial nerves II through XII grossly intact. No focal deficits are noted. DATA: CBC: Recent Labs 05/22/1941705/23/1954 WBC 28.4* 25.8* RBC 5.57 4.74 HGB 15.4 13.2 HCT 47.7 40.4 MCV 85.7 85.2 RDW 13.5 13.7 PLT 153 141 BMP: Recent Labs 05/22/1941705/23/1954 NA 138 139 K 4.4 4.2 CL 107 112* CO2 22 22 BUN 23* 21* CREATININE 1.23 1.22 GLUCOSE 115* 103* CALCIUM 9.1 8.3* ANIONGAP 9 4 LIVER PROFILE: Recent Labs 05/22/19417 AST 45 ALT 22 BILITOT 1.5* ALKPHOS 57 LABALBU 4.0 PROT 6.7 PT/INR: Recent Labs 05/22/19417 PROTIME 10.8 INR 1.0 CARDIAC ENZYMES: No results for input(s): TROPONINI in the last 72 hours. Procalcitonin: Lab Results Component Value Date PROCAL <0.10 05/22/2019 Urine Culture: No results found for this or any previous visit. I reviewed: [x] laboratory results [x] radiographic results At the time of today's encounter. Pt was advised of the results. Assessment Active Problems: Food impaction of esophagus Resolved Problems: * No resolved hospital problems. * Food bolus impaction s/p EGD Esophageal supmucosal linear tear: GI and CT surgery following. Luekocytosis: stress vs infectious, on broad spectrum Abx; de-escalate accordingly SIRS POA concern for sepsis 2/2 to above: broad spectrum ABx; blood Cx, serial procal GERD: PPI COPD: resume home meds BPH: resume home meds PLAN: Continue IV ABx, esophogram, GI and surgery recs, NPO for now then ADAT once OK per surgery, procal, follow blood cx, labs and supportive care. DVT PPx: lovenox See orders, continue POC Advance Directive: Full Code Ismael Ruvalcaba [facility] Hospitalist * Cristina Spain RN - 05/22/2019 2:[address] Ruvalcaba paged earlier to clarify meds as patient is NPO without med exceptions- istated will leaveNPO until esophagram back and ask GI. Per GI it is up to cardiothoracic surgery who wishes for patient to remain NPO for the time being. Dr. Ruvalcaba notified. * Cristina Spain RN - 05/22/2019 9:12 AM EST Home medications verified with patients [facility] in [place]. * Kassandra Miranda RN - 05/22/2019 7:50 AM EST Patient to radiology for esophagram. Report called to H5, patients sister updated * Kassandra Miranda RN - 05/22/2019 6:54 AM EST Glasses returned to patient. Awaiting admit order * Melody Engle RN - 05/22/2019 6:43 AM EST Resident spoke with sister Kamilla and given update and that pt will be admitted documented in this encounterSUMMA Work Phone: Discharge summary Author Jose Taylor [facility] Note Date/Time December 23, 2024 11 :22am [facility] Medical Records Department [address] [place] [address] Emergency Department Summary 12/23/24 MR#: [id number] Acct: [id number] Name: BASSEM YEE Rep #:[id number] : 1945 79 From: Jose Taylor MD PCP: Dr. Shira Pavon MD Status:REG E R Location: ED HPI History of Present Illness Chief Complaint: Chest Pain Detail of Chief Complaint: Initially right-sided chest pain, pedal edema and cough Informant: patient Onset/Context/Timing Onset: Weeks (After lung biopsy 3 weeks ago) Context: Sudden Onset Timing: Intermittent (Varies pain is predominantly after coughing or taking a deep breath and occurs intermittently during the day) Quality: Sharp. Location: Initially right side of the chest now bilaterally Current Severity: Gone Maximum Severity: Severe (A sudden deep breath or a sudden hard cough) Worsened by: Documented under maximum severity Relieved by: Not applicable since his transient Associated Symptoms Associated Symptoms: Reports intermittent pedal edema the past couple of days Narrative Narrative: Patient is a 79-year-old male. He is status post multi valve repair and replacement, with history of B-cell chronic lymphocytic leukemia variant, fatigue, hypercholesterolemia, iron deficiency anemia, coronary artery disease, benign lung nodule and ICU admission [facility] 3 months ago for pneumonia. Patient states he has not been well or the same since his admission for pneumonia. He denies fever or chills. He does complain of congestion which is chronic. He denies sore throat. He has slight hoarseness of his voice. His cough is nonproductive. Presently if he takes a deep breath he does not have pain. He does report shortness of breath at rest. That has been an issue for months. He may have be slightly more short of breath with activity the past week or 2. He has had intermittent pedal edema. He is not able to tell me if it is worse at night versus the morning. He states it is not always present. He is not sure what makes it better or worse. He has 3 pillow orthopnea since his admission at [facility]. He denies history of congestive heart failure and review of records indicates he does not have history of heart failure. He has had an increase in weight. He was prescribed a new medicine for his COPD. He was on Symbicort. He states he feels much better since he was prescribed a new medicine 3 weeks ago. He denies black or maroon-colored stool. He denies urinary symptoms. He deniesabdominal pain or back pain. He denies exertional chest pain, pressure tightness or heaviness. He denies PND. 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 History of leukemia Gastric reflux COPD (chronic obstructive pulmonary disease) Home Medications ?Medication ?Instructions ?Recorded ?Last Taken ?Type atorvastatin 20 mg tablet 20 mg PO QDAY 03/19/24 Unkno wn History famotidine 20 mg tablet 20 mg PO QDAY 03/19/24 Unkno wn History lactobacillus combination no.9 4 4,000 mmu cells PO QD AY 07/24/24 Unknown History billion cell capsule (Adult 50 Plus Probiotic) doxycycline hyclate 100 mg tablet 100 mg PO QDAY 10/02 Unknown History allopurinol 300 mg tablet 300 mg PO QDAY 30 days #30 t abs 12/04/24 Unknown Rx albuterol sulfate 90 mcg/actuation 2 puff inhalation Q 4-6H PRN 12/05/24 Unknown Rx aerosol inhaler (ProAir HFA) shortness of breath or wh eezing #8.5 grams fluticasone fur. 200 mcg-umeclid 1 inh inhalation Q24H #3 ea 12/09/24 Unknown Rx 62.5 mcg-vilant 25 mcg inhalat.powder (Trelegy Ellipta) ondansetron HCl 8 mg tablet 8 mg PO Q12H PRN nausea an d 12/17/24 Unknown Rx vomiting #30 tabs Allergy/AdvReac Type Severity Reaction Status Date / Time Sulfa (Sulfonamide Allergy Swelling Verified 12/23/24 09:23 Antibiotics) Family History Brother Cancer Mother Heart disease Surgical History History of parotid gland removal Hx of transurethral resection of prostate (12/01/20) Status post incision and drainage Status post heart valve replacement Social History Smoking Status: Former smoker alcohol intake: never substance use type: does not use ROS ROS ED Constitutional Constitutional ED: Denies chills, fever(s), subjective, sweats or weight loss Eyes Eyes: Denies blurry vision or change in vision ENT ENT ED: Reports other Details: Further detailed HPI narrative ; Denies ear pain, rhinorrhea or sore throat Cardiovascular Cardiovascular: Reports chest pain, orthopnea and other Details: Further detailed HPI narrative ; Denies palpitations, paroxysmal nocturnal dyspnea or racing heartbeat Respiratory/Chest Respiratory/Chest: Reports cough, dyspnea, dyspnea on exertion, orthopnea and other Details: Further detailed HPI narrative ; Denies paroxysmal nocturnal dyspnea or sputum Gastrointestinal Gastrointestinal: Denies abdominal pain, diarrhea, nausea or vomiting Genitourinary Genitourinary ED: Denies dysuria, hematuria or urinary frequency Musculoskeletal Musculoskeletal: Denies arthralgias or myalgias Integumentary Denies rash Neurologic Neurologic: Denies headache(s), paresthesias or weakness Endocrine Endocrinology: Denies cold intolerance or heat intolerance Hematologic/Lymphatic Hematologic/Lymphatic: Reports systems reviewed and no addt'l complaints, exceptas documented Allergic/Immunologic Allergic/Immunologic ED: Denies mouth swelling or tongue swelling EXAM Physical Exam Const Vital Signs: 12/23/24 09:23 12/23/24 10:24 Temperature 97.1 F L Temperature Source Temporal Pulse Rate 110 H 92 Respiratory Rate 18 18 Blood Pressure 154/81 H Blood Pressure Mean 105 Pulse Ox 98 97 Oxygen Delivery Method Room Air Room Air Positive well nourished and well developed General Appearance ED: well developed and NAD; Negative for pallor HEENT Reports moist mucous membranes HEENT Narrative: Ears are normal. Nares are patent. Posterior pharynx is normal. Eyes PERRL and EOMs intact bilaterally General Eye ED: Negative for pale conjunctiva or scleral icterus Neck no lymphadenopathy, supple and no JVD Neck Narrative: Trachea is midline. There is no JVD. Chest Wall inspection of chest normal and palpation of chest normal Resp normal respiratory effort Resp Narrative: Patient is slightly tachypneic and breathing faster than 18 times a minute. Hislungs are clear to auscultation. There is decreased air movement bilaterally. There is no wheezing even with forced expiration. Cardio regular rate, regular rhythm, S1 normal heart sound, S2 normal heart sound and no murmurs GI normal to inspection, nondistended, normoactive bowel sounds, non-tender, non-distended and no masses; Negative for hepatosplenomegaly Palpation: soft Back/Spine no CVA tenderness Extremity normal to inspection Extremity Narrative: There is no asymmetry, swelling, discoloration, leg vein distention, palpable cords or tenderness along the distribution of the deep venous system. General Extremety ED: Negative for edema or tenderness General Extremity: Negative for edema Neuro oriented x3, CN's II-XII intact bilaterally and no sensory deficits noted Motor Exam: strength 5/5 throughout Psych mental status grossly normal Skin no rashes or lesions noted, no wounds and skin turgor normal General Skin Exam: Negative for jaundice or pallor MDM MDM MDM Narrative Medical decision making narrative: Patient's chest pain started after biopsy. In consideration would be pneumothorax which would be unlikely, recurrent pneumonia, pleurisy, with patient having intermittent transient symptoms this is not consistent with cardiac etiology. Symptoms not consistent with pulmonary embolus either. His symptoms are not suggestive of GI etiology either. His workup included chest x-ray, EKG because he is tachycardic CBC to assess H&H and competence of metabolicpanel to assess renal function, electrolytes liver enzymes to determine there isany evidence of endorgan dysfunction. Since he has no rales he has no edema hisexam and history is not consistent with CHF. If there is evidence of CHF on thex-ray will obtain troponin and BNP. Reviewed Dr. Clement Lewis's office note authored on December 17. Assessment was lung nodule, CLL, parotid mass, chemotherapy management and encounter for monoclonal antibody treatment for malignancy. 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 There was no evidence of malignancy. His parotid mass was noted on CAT scan dated December 25. He is scheduled for biopsy 911. This revealed a Warthin's tumor. Lab Data Labs: Laboratory Results - last 24 hr 12/23/24 09:50 WBC 9.3 RBC 4.84 Hgb 12.9 L Hct 41.3 MCV 85.3 MCH 26.7 L MCHC 31.2 L RDW Std Deviation 42.5 RDW Coeff of Antonio 13.7 Plt Count 110 L MPV 9.8 Sodium 138 Potassium 4.1 Chloride 101 Carbon Dioxide 27.2 Anion Gap 10 BUN 21 H Creatinine 1.34 H Estim Creat Clear Calc 40.88 L Est GFR (MDRD) Non-Af 55 L BUN/Creatinine Ratio 15.6 Glucose 117 H Calcium 9.7 Total Bilirubin 1.13 AST 15 ALT 12 Alkaline Phosphatase 55 Total Protein 6.0 Albumin 3.8 Globulin 2.3 Albumin/Globulin Ratio 1.7 Radiography Chest X-Ray - ED: 2 View and Read by ED Physician (There are chronic changes noted. He has hyper inflation consistent with COPD. There is no evidence of pneumothorax, infiltrate or effusion. He has multiple clips due to prior aorticvalve replacements and clipping of his atrium. Cardiac silhouette is normal. Osseous structures reveal no acute p) Diagnostic Testing: Clinical Impression(s) from Imaging Studies Chest X-Ray 12/23/24 10:25 IMPRESSION: Hyperinflation and changes compatible with COPD. Prominence of the central pulmonary arteries suggestive of pulmonary hypertension. Prior mitral and aortic valve replacement as well as clip of the left atrium. Reading Location: [place] [address] EKG Initial EKG: Attestation: I personally reviewed and interpreted this EKG as follows: Interpretation: Sinus Rhythm (Rate is 89. The EKG is normal other than artifact. WI interval is on 52 ms. Cures duration 90 ms. QT duration 348 ms. [place] is normal.) Treatment and Re-Evaluation :: Patient was informed of his results. In my opinion he does not have a PE. Willprescribe antibiotic. He states he is on doxycycline presently. That was not listed on his medication list. He was instructed to take until gone. Discharge Plan Triage Chief Complaint: Chest Pain ED Provider: Jose Taylor Dx/Rx/DC Orders Clinical Impression: Acute exacerbation of chronic obstructive pulmonary disease, B-cell chronic lymphocytic leukemia variant, Pain of anterior chest wall with respiration, Acute renal insufficiency Instructions: ED COPD Flare, ED Renal Insufficiency Prescriptions: No Action famotidine 20 mg tablet 20 mg PO QDAY atorvastatin 20 mg tablet 20 mg PO QDAY Adult 50 Plus Probiotic 4 billion cell capsule 4,000 mmu cells PO QDAY Rx Instructions: administer with a meal doxycycline hyclate 100 mg tablet 100 mg PO QDAY allopurinol 300 mg tablet 300 mg PO QDAY 30 Days Qty: 30 2RF ondansetron HCl 8 mg tablet 8 mg PO Q12H PRN (Reason: nausea and vomiting) Qty: 30 0RF albuterol sulfate [ProAir HFA] 90 mcg/actuation HFA aerosol inhaler 2 puff inhalation Q4-6H PRN (Reason: shortness of breath or wheezing) Qty: 8.5 3RF Trelegy Ellipta 200-62.5-25 mcg blister with device 1 inh inhalation Q24H Qty: 3 3RF Primary Care Provider: Shira Pavon Referrals: Clement Lewis MD [Med Staff - Active Staff] - 1 Week Shira Pavon MD [Primary Care Provider] - 1 Week if not improving Print Language: Ethiopian Disposition Disposition: Home, Self Care What to do if you have Problems For any increased pain, shortness of breath, bleeding, nausea or vomiting, chestpain, or any unexpected problems, contact your Primary Care Provider. Call [facility] ([phone]) or report to the closest Emergency Room. Call 911 if necessary. 12/23/24 1122 <Electronically signed by Jose Taylor MD> Cosigner Signature (if applicable): CC: Dr. Shira Pavon MD ~ Signed [facility] Work Phone: Evaluation note* Diagnosis Dysphagia, unspecified type- Primary Septicemia (HCC) Unspecified septicemia Food impaction of esophagus, initial encounter documented in this encounter [facility] Work Phone: Evaluation note* Diagnosis Onset Date Resolution Status CLL (chronic lymphocytic leukemia) [facility] Work Phone: Evaluation note* Diagnosis Onset Date Resolution Status CLL (chronic lymphocytic leukemia) chronic Parotid mass acute CLL (chronic lymphocytic leukemia) [facility] Work Phone: Hospital Discharge instructions* Instructions* Ismael Ruvalcaba MD - 05/24/2019 Call and make appointment with PCP and GI. Your instructions: Recommended diet: clear liquids, advance as tolerated Recommended activity: activity as tolerated GENERAL ZONES GREEN ZONE: All Clear- Your Symptoms Are Under Control No recurrence of symptoms that led to hospitalization Able to do usual activities No fever No chest pain No shortness of breath This Means You Should: Continue taking your medications as prescribed Continue activity as tolerated Keep all doctor appointments YELLOW ZONE: Caution Recurrence of symptoms that led to hospitalization Fever of 100 degrees or higher Increased fatigue or restlessness Intolerant side-effects of medications Uneasy feeling or that something is wrong This Means You Should: Call your doctor for further instructions RED ZONE: Medical Alert Severe or unrelieved shortness of breath at rest Unrelieved chest pain Confusion or you can't think clearly This Means You Should Call 911 Immediately * Attachments The following attachments cannot be sent through Care Everywhere. * Low-Fiber Diet (Ethiopian) documented in this [facility] Work Phone: Hospital Discharge instructionsAmbulatory Orders* Prior Authorization Referral - ONC/HEM Location: None Selected [facility] Work Phone: Progress note Author Billie Del Rio [facility] Note Date/Time February 09, 2025 9:47am [facility] [address] [address] OFFICE VISIT Date of Service: 02/09/25 0839 MR#: [id number] Acct: [id number] Name: BASSEM YEE Rep #: [id number] : 1945 From: Billie Marin DOLL SURGEON DOLL SURGEON-C Age/Sex: 79/M Location: [facility] Status: Signed HPI Subjective Date of Service 02/09/25 Chief Complaint F/U for CLL/SLL History of Present Illness 79 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 Had TURP on 12/01/2020. Pathology show CLL/SLL. He was found to have Lymphocytosis in May [address] Pavon. He was referred for further evaluation. Flow cytometry showed CLL on 01/03/2021, CD38 positive, IgVH negative, 46,XY,add(11)(p15),del(11)(q21q25)[12]/46,XY[8]. CT on 12/25/2022 showed small mediastinal nodes, enlarged prostate, no pelvic nodes. He was on observation, admitted with another bout of pneumonia with shock to the hospital in [place]. Came to clinic because of episodes of fever, he has recorded a temperature of 102 over . IgG WNL. He had a PET/CT on 2024 which showed spiculated hypermetabolic right upper lobe lung mass, hypermetabolic activity in right parotid mass. Had a CT guided biopsy of right lung on 11/21/2023 was negative for malignancy. Started systemic therapy with Bendamustine Rituxan December 17, 2024. Got C2 on 01/14/2025. Interval History The patient is presenting to clinic for an evaluation anticipating he will begin c3 BR today. Exertional dyspnea improved with Trelegy, no longer requires supplemental O2. C/o constipation, improved with probiotic. LBM 02/09/25. Brings log of daily temperatures. No fevers/chills, night sweats, dysphagia, CP, palpitations, cough left cervical lymph node unchanged in comparison to lthe beginning of last cycle- otherwise no other enlarged lymph nodes. 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 History of leukemia Gastric reflux COPD (chronic obstructive pulmonary disease) Surgical History History of parotid gland removal Hx of transurethral resection of prostate (12/01/20) Status post incision and drainage Status post heart valve replacement Family History Brother Cancer Mother Heart disease Social History Smoking Status: Former smoker alcohol intake: never substance use type: does not use ROS ROS Narrative Negative except as documented in the interval HPI Intake Vital Signs 01/26/25 08:55 02/09/25 08:40 02/09/25 08:46 Height 5 ft 8 in 5 ft 8 in 5 ft 8 in Weight: 141 lb 138 lb 9 oz BMI 21.4 21.0 BP 111/68 106/66 Blood Pressure Location Lt brachial Rt brachial Position Sitting Sitting Respiration 18 18 Pulse 81 88 Pulse Source Monitor Monitor Temp 98.4 F 98.4 F Temperature Source Temporal Artery Temporal Artery Pulse Oximetry (%) 100 95 Oxygen Delivery Method room air room air Intake Is patient in pain?: No Allergies Sulfa (Sulfonamide Antibiotics) Allergy (Verified 02/09/25 08:43) Swelling Medications ?Medication ?Instructions ?Recorded ?Confirmed ?Type famotidine 20 mg tablet 20 mg PO QDAY 03/19/2402/09 History lactobacillus combination no.9 4 4,000 mmu cells PO QD AY 07/24/24 02/09/25 History billion cell capsule (Adult 50 Plus Probiotic) doxycycline hyclate 100 mg tablet 100 mg PO QDAY 10/0202/09/25 History allopurinol 300 mg tablet 300 mg PO QDAY 30 days #30 t abs 12/04/24 02/09/25 Rx albuterol sulfate 90 mcg/actuation 2 puff inhalation Q 4-6H PRN 12/05/24 02/09/25 Rx aerosol inhaler (ProAir HFA) shortness of breath or wh eezing #8.5 grams fluticasone fur. 200 mcg-umeclid 1 inh inhalation Q24H #3 ea 12/09/24 02/09/25 Rx 62.5 mcg-vilant 25 mcg inhalat.powder (Trelegy Ellipta) ondansetron HCl 8 mg tablet 8 mg PO Q12H PRN nausea an d 12/17/24 02/09/25 Rx vomiting #30 tabs atorvastatin 20 mg tablet (Lipitor) 20 mg PO QHS 01/1402/09/25 History Have you fallen in the past year?: No Central Venous Access Central Venous Access: No Laboratory Tests 02/09/25 08:15 WBC 4.9 Hgb 13.2 Hct 41.1 Plt Count 171 Absolute Neuts (auto) 2.6 Absolute Lymphs (auto) 0.81 L Sodium 140 Potassium 3.9 Chloride 106 Carbon Dioxide 24.2 BUN 13 Creatinine 0.99 Total Bilirubin 0.75 AST 23 ALT 13 Alkaline Phosphatase 68 Lactate Dehydrogenase 241 Albumin 4.1 Exam Physical Exam Narrative ECOG 0-1 Const alert, oriented x3 and no apparent distress General Appearance: cooperative and comfortable HEENT normocephalic Mouth: No lesions and No thrush Eyes Eyes Narrative: wears glasses General Eye: normal appearance of both eyes Neck full ROM, supple and no meningeal signs Neck Narrative: 2 cm left cervical node, rubbery consistency Chest inspection of chest normal Resp normal respiratory effort and clear to auscultation bilaterally Cardio regular rate, regular rhythm, S1 normal heart sound and S2 normal heart sound GI normal to inspection, nondistended, normoactive bowel sounds Back/Spine no thoracic nor lumbar tenderness Extremity normal to inspection and no clubbing, cyanosis or edema Skin no rashes or lesions noted Neuro oriented x3, CN's II-XII intact bilaterally, moves all extremities and no focal motor deficits Psych mental status grossly normal Coding Level of Care Code Off vis,est,level 4 Exam Problem Focused Diagnoses CLL (chronic lymphocytic leukemia) C91.10 Parotid mass K11.8 Assessment and Plan Assessment and Plan (1) CLL (chronic lymphocytic leukemia): Status: Chronic Comment: CLL/SLL, Lymphocytosis with Prostate infiltration and abdominal adenopathy, CD38 positive, IgVH negative, 46,XY,add(11)(p15),del(11)(q21q25)[12]/46,XY[8]. Started Bendamustine + Rituxan December 19, 2024. Got C2 on 01/14/2025. Plan: Fevers have resolved. Labs reviewed with patient, he is not endorsing any signs or symptoms of toxicity and will proceed with cycle 3 BR today. (2) Parotid mass: Status: Chronic Comment: R parotid mass on CT done on 12/25/2022. 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 Orders: Orders CBC W/Diff, Automated 2 Weeks C91.10 - Chronic lymphocytic leukemia of B-cell type not having achieved remission Basic Metabolic Profile (BMP) 2 Weeks C91.10 - Chronic lymphocytic leukemia of B-cell type not having achieved remission LDH 2 Weeks C91.10 - Chronic lymphocytic leukemia of B-cell type not having achieved remission Plan Return to office in 2 weeks, CBC BMP LDH prior. Clinical Quality Measures Falls Risk Screening/Assistive Devices Have you fallen in the past year?: No 02/09/25 0947 <Electronically signed by Billie enciso NP, NP-C> Date _ Billie Del Rio NP DOLL SURGEON-C Cosigner Signature: Date (if applicable) CC: Dr. Shira Pavon MD ~ [facility] Work Phone: Progress note Author Billie Del Rio [facility] Note Date/Time February 16, 2025 4: 17pm [facility] [address] [address] OFFICE VISIT Date of Service: 02/16/25 1459 MR#: [id number] Acct: [id number] Name: BASSEM YEE Rep #: [id number] : 1945 From: Billie BREWERC Age/Sex: 79/M Location: [facility] Status: Signed with Addenda ADDENDUM by DOLL SURGEON-C Billie Del Rio on 02/16/25 at 1656 Subjective Chief Complaint Acute visit-reoccurence of fever History of Present Illness The patient is presenting to clinic for an acute visit with c/o fever. Was experiencing fevers and chills prior to CLL treatment from May 2024 to January 2025. After cycle 2 BR, fevers resolved and from 01/26/25 to 02/14/25 was fever free. Per patient on 02/14/25 fever reoccurred, fevers are accompanied by shaking and chills. t max 100.7. Develop late afternoon/early evening. C/o 1 episode of lower pelvic pain earlier this morning, 5/10 sharp, shooting. Resolved without intervention after 30 minutes. + intermittent mucositis x several months, has not identified exacerbating factors. Also c/o left chest pain with deep inspiration and cough-intermittently, 8/10. This has been consistent following CT guided core biopsy of RML lung in November. No cough. Exertional dyspnea improved with Trelegy, no longer requires supplemental O2. C/o constipation, improved with probiotic. LBM earlier this morning, adamantly denies diarrhea. Specifically denies sore throat, sinus drainage, ear pain, vision changes, headache, palpitations, nausea, vomiting, swelling of his extremities, penile discharge, urinary frequency, hematuria, flank pain, rash/skin changes, rectal pain. *Has been taking doxycycline daily since discharge from [facility] July 18, 2024 following 5 day hospitalization for septic shock secondary to right-sided healthcare associated pneumonia. H/o endocarditis in 2018. Interval History The patient is presenting to clinic for an acute visit with c/o fever. Was experiencing fevers and chills prior to CLL treatment from May 2024 to January 2025. After cycle 2 BR, fevers resolved and from 01/26/25 to 02/14/25 was fever free. Per patient on 02/14/25 fever reoccurred, fevers are accompanied by shaking and chills. t max 100.7. Develop late afternoon/early evening. C/o 1 episode of lower pelvic pain earlier this morning, 5/10 sharp, shooting. Resolved without intervention after 30 minutes. + intermittent mucositis x several months, has not identified exacerbating factors. Also c/o left chest pain with deep inspiration and cough-intermittently, 8/10. This has been consistent following CT guided core biopsy of RML lung in November. No cough. Exertional dyspnea improved with Trelegy, no longer requires supplemental O2. C/o constipation, improved with probiotic. LBM earlier this morning, adamantly denies diarrhea. Specifically denies sore throat, sinus drainage, ear pain, vision changes, headache, palpitations, nausea, vomiting, swelling of his extremities, penile discharge, urinary frequency, hematuria, flank pain, rash/skin changes, rectal pain. *Has been taking doxycycline daily since discharge from [facility] July 18, 2024 following 5 day hospitalization for septic shock secondary to right-sided healthcare associated pneumonia. H/o endocarditis in 2018. Assessment and Plan Assessment and Plan (1) Fever of unknown origin: Status: Acute (2) CLL (chronic lymphocytic leukemia): Status: Chronic Comment: CLL/SLL, Lymphocytosis with Prostate infiltration and abdominal adenopathy, [id number], IgVH negative, 46,XY,add(11)(p15),del(11)(q21q25)[12]/46,XY[8]. Started Bendamustine + Rituxan December 19, 2024. (3) Parotid mass: Status: Chronic Comment: R parotid mass on CT done on 12/25/2022. 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 request prior auth Orders: Orders Culture, Blood (WB) Today R50.9 - Fever, unspecified Culture, Blood (WB) Today R50.9 - Fever, unspecified HIV Today R50.9 - Fever, unspecified Hepatitis Panel Acute Today R50.9 - Fever, unspecified Syphilis Antibodies Today R50.9 - Fever, unspecified EBV-VCA IgG Today R50.9 - Fever, unspecified Chest PA and Lateral Today R50.9 - Fever, unspecified Culture, Urine Today R50.9 - Fever, unspecified Referrals Prior Authorization Referral - ONC/HEM C91.10 - Chronic lymphocytic leukemia of B-cell type not having achieved remission, D80.1 - Nonfamilial hypogammaglobulinemia 02/16/25 1656 <Electronically signed by Billie enciso NP DOLL SURGEONAndrewC> Date _ Billie Del Rio NPC cc: ~* Signed HPI Subjective Date of Service 02/16/25 Chief Complaint Acute visit-reoccurence of fever History of Present Illness 79 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 Had TURP on 12/01/2020. Pathology show CLL/SLL. He was found to have Lymphocytosis in May [address] Pavon. He was referred for further evaluation. Flow cytometry showed CLL on 01/03/2021, CD38 positive, IgVH negative, 46,XY,add(11)(p15),del(11)(q21q25)[12]/46,XY[8]. CT on 12/25/2022 showed small mediastinal nodes, enlarged prostate, no pelvic nodes. He was on observation, admitted with another bout of pneumonia with shock to the hospital in [place]. Came to clinic because of episodes of fever, he has recorded a temperature of 102 over August/September. IgG WNL. He had a PET/CT on 2024 which showed spiculated hypermetabolic right upper lobe lung mass, hypermetabolic activity in right parotid mass. Had a CT guided biopsy of right lung on 11/21/2023 was negative for malignancy. Started systemic therapy with Bendamustine Rituxan December 17, 2024. Got C2 on 01/14/2025, c3 on 02/09/25. Interval History The patient is presenting to clinic for an acute visit with c/o fever. Was experiencing fevers and chills prior to CLL treatment from May 2024 to January 2025. After cycle 2 BR, fevers resolved and from 01/26/25 to 02/14/25 was fever free. Per patient on 02/14/25 fever reoccurred, fevers are accompanied by shaking and chills. t max 100.7. Develop late afternoon/early evening. C/o 1 episode of lower pelvic pain earlier this morning, /10 sharp, shooting. Resolved without intervention after 30 minutes. + intermittent mucositis x several months, has not identified exacerbating factors. Also c/o left chest pain with deep inspiration and cough-intermittently, 12/21. This has been consistent following CT guided core biopsy of RML lung in November. No cough. Exertional dyspnea improved with Trelegy, no longer requires supplemental O2. C/o constipation, improved with probiotic. LBM earlier this morning, adamantly denies diarrhea. Specifically denies sore throat, sinus drainage, ear pain, vision changes, headache, palpitations, nausea, vomiting, swelling of his extremities, penile discharge, urinary frequency, hematuria, flank pain, rash/skin changes, rectal pain. *Has been taking doxycycline daily since discharge from [facility] July 18, 2024 following 5 day hospitalization for septic shock secondary to right-sided healthcare associated pneumonia. H/o endocarditis in 2018. 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 History of leukemia Gastric reflux COPD (chronic obstructive pulmonary disease) Surgical History History of parotid gland removal Hx of transurethral resection of prostate (12/01/20) Status post incision and drainage Status post heart valve replacement Family History Brother Cancer Mother Heart disease Social History Smoking Status: Former smoker alcohol intake: never substance use type: does not use ROS ROS Narrative Negative except as documented in the interval HPI Intake Vital Signs 02/09/25 08:46 02/16/25 15:01 02/16/25 15:15 Height 5 ft 8 in 5 ft 8 in 5 ft 8 in Weight: 139 lb 8 oz BMI 21.2 BP 128/76 H Blood Pressure Location Lt brachial Position Sitting Respiration 18 Pulse 92 Pulse Source Monitor Temp 98.0 F Temperature Source Temporal Artery Pulse Oximetry (%) 96 Oxygen Delivery Method room air Intake Is patient in pain?: No Allergies Sulfa (Sulfonamide Antibiotics) Allergy (Verified 02/16/25 15:15) Swelling Medications ?Medication ?Instructions ?Recorded ?Confirmed ?Type famotidine 20 mg tablet 20 mg PO QDAY 03/19/2402/16 History lactobacillus combination no.9 4 4,000 mmu cells PO QD AY 07/24/24 02/16/25 History billion cell capsule (Adult 50 Plus Probiotic) doxycycline hyclate 100 mg tablet 100 mg PO QDAY 10/0202/16/25 History allopurinol 300 mg tablet 300 mg PO QDAY 30 days #30 t abs 12/04/24 02/16/25 Rx albuterol sulfate 90 mcg/actuation 2 puff inhalation Q 4-6H PRN 12/05/24 02/16/25 Rx aerosol inhaler (ProAir HFA) shortness of breath or wh eezing #8.5 grams fluticasone fur. 200 mcg-umeclid 1 inh inhalation Q24H #3 ea 12/09/24 02/16/25 Rx 62.5 mcg-vilant 25 mcg inhalat.powder (Trelegy Ellipta) ondansetron HCl 8 mg tablet 8 mg PO Q12H PRN nausea an d 12/17/24 02/16/25 Rx vomiting #30 tabs atorvastatin 20 mg tablet (Lipitor) 20 mg PO QHS 01/1402/16/25 History Have you fallen in the past year?: No Central Venous Access Central Venous Access: No Laboratory Tests 02/16/25 02/16/25 14:43 Unknown WBC 4.4 Hgb 12.4 L Hct 38.8 L Plt Count 149 L Absolute Neuts (auto) 2.7 Absolute Lymphs (auto) 0.42 L Sodium 140 Potassium 4.3 Chloride 106 Carbon Dioxide 25.8 BUN 13 Creatinine 1.12 Glucose 123 H Calcium 9.0 Total Bilirubin 0.64 AST 22 ALT 13 Alkaline Phosphatase 57 Albumin 3.7 Urine Color Yellow Urine Clarity Clear Urine pH 6.0 Ur Specific [place] 1.020 Urine Protein 30 H Urine Occult Blood Negative Urine Nitrite Negative Exam Physical Exam Narrative ECOG 0-1 Const alert, oriented x3 and no apparent distress General Appearance: comfortable HEENT normocephalic Mouth: No lesions and No thrush Eyes Eyes Narrative: wears glasses General Eye: normal appearance of both eyes Neck full ROM, supple and no meningeal signs Lymph Lymphatic Narrative: 1 cm cervical nodes bilat, rubbery consistency 3 cm node left axilla, rubbery consistency Resp normal respiratory effort and clear to auscultation bilaterally Cardio regular rate, regular rhythm, S1 normal heart sound and S2 normal heart sound GI normal to inspection, nondistended, normoactive bowel sounds GI Narrative: modestly tender to RUQ Back/Spine no thoracic nor lumbar tenderness Extremity normal to inspection and no clubbing, cyanosis or edema Skin no rashes or lesions noted Neuro oriented x3, CN's II-XII intact bilaterally, moves all extremities and no focal motor deficits Psych mental status grossly normal Coding Level of Care Code Off vis,est,level 4 Exam Problem Focused Diagnoses Fever of unknown origin R50.9 CLL (chronic lymphocytic leukemia) C91.10 Parotid mass K11.8 Assessment and Plan Assessment and Plan (1) Fever of unknown origin: Status: Acute Plan: Initially fever thought to be associated with CLL. Was nearly 3 weeks fever free until the weekend. Request urine cx, CXR, blood cultures x 2, HIV, Hepatis panel, EBV to begin investigations. If cannot determine source of infection, consider referral to infectious disease. (2) CLL (chronic lymphocytic leukemia): Status: Chronic Comment: CLL/SLL, Lymphocytosis with Prostate infiltration and abdominal adenopathy, CD38 positive, IgVH negative, 46,XY,add(11)(p15),del(11)(q21q25)[12]/46,XY[8]. Started Bendamustine + Rituxan December 19, 2024. Plan: Received cycle 3 on 02/09/25, absolute lymphocyte count 0.42 indicating response to treatment. (3) Parotid mass: Status: Chronic Comment: R parotid mass on CT done on 12/25/2022. 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 Orders: Orders Culture, Blood (WB) Today R50.9 - Fever, unspecified Culture, Blood (WB) Today R50.9 - Fever, unspecified HIV Today R50.9 - Fever, unspecified Hepatitis Panel Acute Today R50.9 - Fever, unspecified Syphilis Antibodies Today R50.9 - Fever, unspecified EBV-VCA IgG Today R50.9 - Fever, unspecified Chest PA and Lateral Today R50.9 - Fever, unspecified Culture, Urine Today R50.9 - Fever, unspecified Plan Return to office in 2 weeks, CBC BMP LDH prior. Clinical Quality Measures Falls Risk Screening/Assistive Devices Have you fallen in the past year?: No 02/16/25 7931 <Electronically signed by Billie enciso NP DOLL SURGEONAndrewC> Date _ Billie Del Rio NP DOLL SURGEON-C Cosigner Signature: Date (if applicable) CC: ~ [facility] Work Phone: Progress note Author Clement Lewis [facility] Note Date/Time February 24, 2025 9 :51am [facility] [place] [address] OFFICE VISIT Date of Service: 02/24/25 0835 MR#: [id number] Acct: [id number] Name: BASSEM YEE Rep #: [id number] : 1945 From: Clement Lewis MD Age/Sex: 79/M Location: [facility] Status: Signed HPI Subjective Date of Service 02/24/25 Chief Complaint F/u for IVIG History of Present Illness 79 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 Had TURP on 12/01/2020. Pathology show CLL/SLL. He was found to have Lymphocytosis in May [address] Pavon. He was referred for further evaluation. Flow cytometry showed CLL on 01/03/2021, CD38 positive, IgVH negative, 46,XY,add(11)(p15),del(11)(q21q25)[12]/46,XY[8]. CT on 12/25/2022 showed small mediastinal nodes, enlarged prostate, no pelvic nodes. He was on observation, admitted with another bout of pneumonia with shock to the hospital in [place]. Came to clinic because of episodes of fever, he has recorded a temperature of 102 over August/September. IgG WNL. He had a PET/CT on 2024 which showed spiculated hypermetabolic right upper lobe lung mass, hypermetabolic activity in right parotid mass. Had a CT guided biopsy of right lung on 11/21/2023 was negative for malignancy. Started systemic therapy with Bendamustine Rituxan December 17, 2024. Got C2 on 01/14/2025, C3 on 02/09/25. He was found to have IgG level less than 500 so comes in to start IVIG. He is still getting episodes of fever greater than 100.4, chills, coughing with sputum sometimes. 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 History of leukemia Gastric reflux COPD (chronic obstructive pulmonary disease) Surgical History History of parotid gland removal Hx of transurethral resection of prostate (12/01/20) Status post incision and drainage Status post heart valve replacement Family History Brother Cancer Mother Heart disease Social History Smoking Status: Former smoker alcohol intake: never substance use type: does not use Intake Vital Signs 02/09/25 08:46 02/16/25 15:15 02/24/25 08:39 Height 5 ft 8 in 5 ft 8 in 5 ft 8 in Weight: 63.616 kg BMI 21.3 BP 114/65 Blood Pressure Location Lt brachial Position Sitting Respiration 18 Pulse 76 Pulse Source Monitor Temp 98.6 F Temperature Source Temporal Artery Pulse Oximetry (%) 95 Oxygen Delivery Method room air Intake Accompanied by: Self Is patient in pain?: No Allergies Sulfa (Sulfonamide Antibiotics) Allergy (Verified 02/24/25 08:45) Swelling Medications ?Medication ?Instructions ?Recorded ?Confirmed ?Type famotidine 20 mg tablet 20 mg PO QDAY 03/19/2402/24 History lactobacillus combination no.9 4 4,000 mmu cells PO QD AY 07/24/24 02/24/25 History billion cell capsule (Adult 50 Plus Probiotic) doxycycline hyclate 100 mg tablet 100 mg PO QDAY 10/0202/24/25 History allopurinol 300 mg tablet 300 mg PO QDAY 30 days #30 t abs 12/04/24 02/24/25 Rx albuterol sulfate 90 mcg/actuation 2 puff inhalation Q 4-6H PRN 12/05/24 02/24/25 Rx aerosol inhaler (ProAir HFA) shortness of breath or wh eezing #8.5 grams fluticasone fur. 200 mcg-umeclid 1 inh inhalation Q24H #3 ea 12/09/24 02/24/25 Rx 62.5 mcg-vilant 25 mcg inhalat.powder (Trelegy Ellipta) ondansetron HCl 8 mg tablet 8 mg PO Q12H PRN nausea an d 12/17/24 02/24/25 Rx vomiting #30 tabs atorvastatin 20 mg tablet (Lipitor) 20 mg PO QHS 01/1402/24/25 History Have you fallen in the past year?: No Central Venous Access Central Venous Access: No Microbiology 02/16/25 16:33 Blood Culture (Wb) - Anticubital Left Blood Culture - Final No growth in 5 days. 02/16/25 16:28 Blood Culture (Wb) #2 - Anticubital Right Blood Culture - Final No growth in 5 days. Laboratory Tests 01/03/21 01/03/21 01/03/21 10:10 10:10 10:10 WBC Hgb 14.8 Hct 48.3 Plt Count Absolute Neuts (auto) 4.4 Absolute Lymphs (auto) 21.20 H Sodium Potassium Chloride 112 H Carbon Dioxide 28.0 BUN 18 Creatinine 1.19 Est GFR (MDRD) Non-Af Glucose Calcium 9.0 Uric Acid Total Bilirubin AST 19 ALT 20 Alkaline Phosphatase 57 Lactate Dehydrogenase 241 Total Protein Albumin 3.7 Globulin 2.9 Total Protein (PEP) IgG IgA IgM NOE M-Tyrone Free [place] LC, Quant Free Lambda LC, Quant Free [place]/Lambda Ratio Syphilis Total Ab Hep Bs Antigen Hep B Core IgM Ab Hepatitis C Ab (EIA) Miscellaneous Test 01/03/21 07/18/21 01/17/22 10:10 13:05 13:08 WBC 28.1 H 35.8 H* 34.9 H* Hgb 15.2 15.0 Hct 46.8 47.7 Plt Count 158 142 L 156 Absolute Neuts (auto) 4.5 Absolute Lymphs (auto) 28.64 H Sodium 141 Potassium 4.5 Chloride Carbon Dioxide BUN Creatinine Est GFR (MDRD) Non-Af Glucose Calcium Uric Acid Total Bilirubin 1.10 H AST ALT Alkaline Phosphatase Lactate Dehydrogenase Total Protein 6.6 Albumin Globulin Total Protein (PEP) IgG IgA IgM NOE M-[place]one Free [place] LC, Quant Free Lambda LC, Quant Free [place]/Lambda Ratio Syphilis Total Ab Hep Bs Antigen Hep B Core IgM Ab Hepatitis C Ab (EIA) Miscellaneous Test 08/15/22 10/02/22 03/19/24 13:45 15:16 13:45 WBC 48.5 H* 47.0 H* 94.5 H* Hgb 15.3 14.3 13.4 Hct 49.0 46.5 43.8 Plt Count 175 192 176 Absolute Neuts (auto) 5.0 11.5 H Absolute Lymphs (auto) 41.79 H 40.24 H 81.52 H Sodium Potassium Chloride Carbon Dioxide BUN Creatinine Est GFR (MDRD) Non-Af Glucose Calcium Uric Acid Total Bilirubin AST ALT Alkaline Phosphatase Lactate Dehydrogenase Total Protein Albumin Globulin Total Protein (PEP) IgG IgA IgM NOE M-[place] Free [place] LC, Quant Free Lambda LC, Quant Free [place]/Lambda Ratio Syphilis Total Ab Hep Bs Antigen Hep B Core IgM Ab Hepatitis C Ab (EIA) Miscellaneous Test 07/24/24 10/16/24 12/17/24 14:47 09:05 07:41 WBC 57.6 H* 41.3 H* 42.0 H* Hgb 13.7 13.6 12.9 L Hct 44.8 44.3 43.0 Plt Count 359 133 L 148 L Absolute Neuts (auto) 9.5 H 4.1 4.5 Absolute Lymphs (auto) 45.31 H 35.18 H 33.78 H Sodium 139 143 Potassium 4.7 4.0 Chloride 106 108 Carbon Dioxide 24.4 22.2 BUN 14 18 Creatinine 1.05 1.21 H Est GFR (MDRD) Non-Af 74 Glucose 109 H 91 Calcium 9.0 9.1 Uric Acid 6.2 Total Bilirubin 0.43 AST 28 25 ALT 18 12 Alkaline Phosphatase 61 68 Lactate Dehydrogenase 272 H 201 Total Protein 6.4 6.3 Albumin 3.9 4.1 Globulin 2.6 2.3 Total Protein (PEP) 6.1 IgG 627 538 L IgA 79 39 L IgM 40 16 NOE M-Tyrone Not Observed Not Observed Free [place] LC, Quant 55.0 H 47.4 H Free Lambda LC, Quant 11.7 9.3 Free [place]/Lambda Ratio 4.70 H Syphilis Total Ab Hep Bs Antigen Hep B Core IgM Ab Hepatitis C Ab (EIA) Miscellaneous Test 01/26/25 02/09/25 02/16/25 08:08 08:15 16:28 WBC 5.0 Hgb 11.7 L Hct 37.0 L Plt Count 139 L Absolute Neuts (auto) 2.7 Absolute Lymphs (auto) 0.80 L Sodium 143 Potassium 4.1 Chloride 111 H Carbon Dioxide 24.4 BUN 15 Creatinine 1.12 Est GFR (MDRD) Non-Af Glucose 75 Calcium 8.8 Uric Acid Total Bilirubin 0.80 AST 23 ALT 16 Alkaline Phosphatase 53 Lactate Dehydrogenase 261 H Total Protein 5.6 L Albumin 3.7 Globulin 2.0 L Total Protein (PEP) IgG 412 L IgA 34 L IgM 5 L NOE M-Tyr[place] Not Observed Free [place] LC, Quant 16.1 Free Lambda LC, Quant 7.3 Free [place]/Lambda Ratio 2.21 H Syphilis Total Ab Nonreactive Hep Bs Antigen Negative Hep B Core IgM Ab Negative Hepatitis C Ab (EIA) Non Reactive Miscellaneous Test 02/24/25 07:45 WBC 5.3 Hgb 12.5 L Hct 38.9 L Plt Count 154 Absolute Neuts (auto) 2.4 Absolute Lymphs (auto) 1.23 Sodium Potassium Chloride Carbon Dioxide BUN Creatinine Est GFR (MDRD) Non-Af Glucose Calcium Uric Acid Total Bilirubin AST ALT Alkaline Phosphatase Lactate Dehydrogenase Total Protein Albumin Globulin Total Protein (PEP) IgG IgA IgM NOE M-[place] Free [place] LC, Quant Free Lambda LC, Quant Free [place]/Lambda Ratio Syphilis Total Ab Hep Bs Antigen Hep B Core IgM Ab Hepatitis C Ab (EIA) Miscellaneous Test 02/16/2025 CXR reviewed. RAD/Chest PA and Lateral IMPRESSION: 1. Emphysema. 2. Aortic mitral and tricuspid valve prostheses. 3. Other findings as noted. Exam Physical Exam Narrative ECOG 0-1 Const alert, oriented x3 and no apparent distress HEENT normocephalic Mouth: No lesions and No thrush Eyes Eyes Narrative: wears glasses General Eye: normal appearance of both eyes Neck full ROM, supple and no meningeal signs Lymph Lymphatic Narrative: 3 cm node left axilla, rubbery consistency Resp normal respiratory effort and clear to auscultation bilaterally Cardio regular rate, regular rhythm, S1 normal heart sound and S2 normal heart sound GI normal to inspection, nondistended, normoactive bowel sounds GI Narrative: modestly tender to RUQ Back/Spine no thoracic nor lumbar tenderness Extremity normal to inspection and no clubbing, cyanosis or edema Skin no rashes or lesions noted Neuro oriented x3, CN's II-XII intact bilaterally, moves all extremities and no focal motor deficits Psych mental status grossly normal Coding Level of Care Code Off vis,est,level 4 Exam Problem Focused Diagnoses Fever of unknown origin R50.9 CLL (chronic lymphocytic leukemia) C91.10 Parotid mass K11.8 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 Still has persistent fevers. CXR on 02/16/2025 was negative. Plan: To repeat Blood cultures and Urine culture. (2) CLL (chronic lymphocytic leukemia): Status: Chronic Comment: CLL/SLL, Lymphocytosis with Prostate infiltration and abdominal adenopathy, CD38 positive, IgVH negative, 46,XY,add(11)(p15),del(11)(q21q25)[12]/46,XY[8]. Started Bendamustine + Rituxan December 19, 2024. Has got 3 cycles. Last cycle was on 02/09/2025. Has Hematologic remission. Plan: To obtain PET/CT to assess disease and Lung nodule. (3) Parotid mass: Status: Chronic Comment: R parotid mass on CT done on 12/25/2022. 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 (4) Hypogammaglobulinemia: Status: Acute Plan: To proceed with IVIG with Tylenol and Benadryl as pre-medication. Orders: Orders Urinalysis, Complete Today C91.10 - Chronic lymphocytic leukemia of B-cell type not having achieved remission, D80.1 - Nonfamilial hypogammaglobulinemia, R50.9 - Fever, unspecified Culture, Urine Today C91.10 - Chronic lymphocytic leukemia of B-cell type not having achieved remission, D80.1 - Nonfamilial hypogammaglobulinemia, R50.9 - Fever, unspecified Culture, Blood (WB) Today C91.10 - Chronic lymphocytic leukemia of B-cell type not having achieved remission, D80.1 - Nonfamilial hypogammaglobulinemia, R50.9 - Fever, unspecified Culture, Blood (WB) Today C91.10 - Chronic lymphocytic leukemia of B-cell type not having achieved remission, D80.1 - Nonfamilial hypogammaglobulinemia, R50.9 - Fever, unspecified PET/CT Tumor Base -Thigh Subs 03/03/25 C91.10 - Chronic lymphocytic leukemia of B-cell type not having achieved remission Clinical Quality Measures Falls Risk Screening/Assistive Devices Have you fallen in the past year?: No 02/24/25 1626 <Electronically signed by Clement Jorgensen> Date _ Clement Lewis MD Cosigner Signature: Date (if applicable) CC: Dr. Shira Pavon MD ~ [facility] Work Phone: Reason for referral (narrative)No reason for referral information availableSpecial[facility] Work Phone: Summary Purpose Family History Relationship Condition Age at Onset Recorded Date/T ovn brother Malignant neoplasm Unknown mother Cardiac disease Unknown Advance Directives Documents on File Type Date Recorded Patient [facility] Center Manager Expl anation Advance Directives and Living Will Power of Pier Runner Latest Code Status on File Code Status Date Activated Date Inactivated Comments Full Code 05/22/2019 8:56 AM Advance Directive Response Recorded Date/ Time Living Will No November 24, 2020 10:20am Power of [place] Runner No November 24 10:20am Advance Directive Response Recorded Date/ Time Living Will No November 24, 2020 11:20am Power of [place] Runner No November 24 11:20am Advance Directive Response Recorded Date/ Time Living Will No November 24, 2020 11:20am Do you have a Healthcare Power of Pier Runner? No November 24, 2020 11:20am Advance Directive Response Recorded Date/ Time Living Will No December 18, 2024 1:33pm Do you have a Healthcare Power of Pier Runner? No December 18, 2024 1:33pm Advance Directives No December 18, 2 025 1:33pm Do you have a Healthcare Power of Pier Runner? No December 23, 2024 10:24am Advance Directive Response Recorded Date/ Time Living Will No January 15, 025 1:28pm Do you have a Healthcare Power of Pier Runner? No January 15, 2025 1:28pm Advance Directives No January 1:28pm Do you have a Healthcare Power of Pier Runner? No December 23, 2024 10:24am Advance Directive Response Recorded Date/ Time Living Will No February 10, 2025 1:59pm Do you have a Healthcare Power of Pier Runner? No February 10, 2025 1:59pm Advance Directives No January 1:59pm Do you have a Healthcare Power of Pier Runner? No December 23, 2024 10:24am Advance Directive Response Recorded Date/ Time Living Will No February 24 10:31am Do you have a Healthcare Power of Pier Runner? No February 24, 2025 10:31am Advance Directives No February 24, 2025 10:31am Do you have a Healthcare Power of Pier Runner? No December 23, 2024 10:24am Chief Complaint and Reason for Visit Chief Complaint 6MO LABS LABS Reason for Visit CLL (chronic lymphoc ytic leukemia) Chief Complaint PER DR. LEWIS REQUEST LABS LABS CLL Reason for Visit CLL (chronic lymphoc ytic leukemia) Chief Complaint PER DR. LEWIS REQUEST LABS CLL 3MO LABS REVIEW CT'S LABS Dysphagia, unspecified NEED LAB ORDER SCANNED IN FOR FNA Reason for Visit CLL (chronic lymphoc ytic leukemia) Parotid mass CLL (chronic lymphocytic leukemia) Chief Complaint Admit Date 4MO LABS July 24, 2024 2:3 1pm 1WK LABS PRIOR July 31, 2024 2:3 4pm SOB (Prah) September 03, 2024 1:1 2pm LABS PRIOR October 02, 2024 10:23 am 12WKS LABS PRIOR October 30, 2024 9:56 am LABS October 30, 2024 10:4 5am Reason for Visit Admit Date CLL (chronic lymphocytic leukemia) July 24, 2024 2:31pm Parotid mass July 24, 2024 2:3 1pm SOB (shortness of breath) on exertion [facility] 2024 2:31pm CLL (chronic lymphocytic leukemia) July 31, 2024 2:34pm Parotid mass July 31, 2024 2:3 4pm CAD (coronary artery disease) August 1:12pm S/P AVR (aortic valve replacement) September 03, 2024 1:12pm S/P MVR (mitral valve replacement) September 03, 2024 1:12pm S/P TVR (tricuspid valve repair) August 132024 1:12pm CLL (chronic lymphocytic leukemia) September 122024 10:23am Parotid mass October 02, 2024 10:23 am CLL (chronic lymphocytic leukemia) October 30, 2024 9:56am Parotid mass October 30, 2024 9:56 am Chief Complaint Admit Date 4MO LABS July 24, 2024 2:3 1pm 1WK LABS PRIOR July 31, 2024 2:3 4pm SOB (Prah) September 03, 2024 1:1 2pm LABS PRIOR October 02, 2024 10:23 am 12WKS LABS PRIOR October 30, 2024 9:56 am LEUKEMIA November 04, 2024 11:3 0am Shortness of breath November 12, 2024 10:29 am Reason for Visit Admit Date CLL (chronic lymphocytic leukemia) July 24, 2024 2:31pm Parotid mass July 24, 2024 2:3 1pm SOB (shortness of breath) on exertion [facility] 2024 2:31pm CLL (chronic lymphocytic leukemia) July 31, 2024 2:34pm Parotid mass July 31, 2024 2:3 4pm CAD (coronary artery disease) August 1:12pm S/P AVR (aortic valve replacement) September 03, 2024 1:12pm S/P MVR (mitral valve replacement) September 03, 2024 1:12pm S/P TVR (tricuspid valve repair) August 132024 1:12pm CLL (chronic lymphocytic leukemia) September 122024 10:23am Parotid mass October 02, 2024 10:23 am CLL (chronic lymphocytic leukemia) October 30, 2024 9:56am Parotid mass October 30, 2024 9:56 am CLL (chronic lymphocytic leukemia) November 12, 2024 10:29am COPD (chronic obstructive pulmonary dise ase) November 12, 2024 10:29am Shortness of breath November 12, 2024 10:29 am Chief Complaint Admit Date 4MO LABS July 24, 2024 2:3 1pm 1WK LABS PRIOR July 31, 2024 2:3 4pm SOB (Prah) September 03, 2024 1:1 2pm LABS PRIOR October 02, 2024 10:23 am 12WKS LABS PRIOR October 30, 2024 9:56 am LEUKEMIA November 04, 2024 11:3 0am Shortness of breath November 12, 2024 10:29 am CHEMO ED November 13, 2024 2:56p m Reason for Visit Admit Date CLL (chronic lymphocytic leukemia) July 24, 2024 2:31pm Parotid mass July 24, 2024 2:3 1pm SOB (shortness of breath) on exertion [facility] 2024 2:31pm CLL (chronic lymphocytic leukemia) July 31, 2024 2:34pm Parotid mass July 31, 2024 2:3 4pm CAD (coronary artery disease) August 1:12pm S/P AVR (aortic valve replacement) September 03, 2024 1:12pm S/P MVR (mitral valve replacement) September 03, 2024 1:12pm S/P TVR (tricuspid valve repair) August 132024 1:12pm CLL (chronic lymphocytic leukemia) September 122024 10:23am Parotid mass October 02, 2024 10:23 am CLL (chronic lymphocytic leukemia) October 30, 2024 9:56am Parotid mass October 30, 2024 9:56 am CLL (chronic lymphocytic leukemia) November 12, 2024 10:29am COPD (chronic obstructive pulmonary dise ase) November 12, 2024 10:29am CLL (chronic lymphocytic leukemia) November 13, 2024 2:56pm Parotid mass November 13, 2024 2:56p m Chief Complaint Admit Date 1WK LABS PRIOR July 31, 2024 2:3 4pm SOB (Prah) September 03, 2024 1:1 2pm LABS PRIOR October 02, 2024 10:23 am 12WKS LABS PRIOR October 30, 2024 9:56 am LEUKEMIA November 04, 2024 11:3 0am Shortness of breath November 12, 2024 10:29 am CHEMO ED November 13, 2024 2:56p m RUL LUNG NODULE November 20, 2024 7:41 am Chronic obstructive pulmonary disease, u ns November 26, 2024 9:09am Chronic obstructive pulmonary disease, u ns November 27, 2024 12:07pm Reason for Visit Admit Date CLL (chronic lymphocytic leukemia) July 31, 2024 2:34pm Parotid mass July 31, 2024 2:3 4pm CAD (coronary artery disease) August 1:12pm S/P AVR (aortic valve replacement) September 03, 2024 1:12pm S/P MVR (mitral valve replacement) September 03, 2024 1:12pm S/P TVR (tricuspid valve repair) August 132024 1:12pm CLL (chronic lymphocytic leukemia) September 122024 10:23am Parotid mass October 02, 2024 10:23 am CLL (chronic lymphocytic leukemia) October 30, 2024 9:56am Parotid mass October 30, 2024 9:56 am CLL (chronic lymphocytic leukemia) November 12, 2024 10:29am COPD (chronic obstructive pulmonary dise ase) November 12, 2024 10:29am Lung nodule November 13, 2024 2:56p m CLL (chronic lymphocytic leukemia) November 13, 2024 2:56pm Parotid mass November 13, 2024 2:56p m Chief Complaint Admit Date SOB (Prah) September 03, 2024 1:1 2pm LABS PRIOR October 02, 2024 10:23 am 12WKS LABS PRIOR October 30, 2024 9:56 am LEUKEMIA November 04, 2024 11:3 0am Shortness of breath November 12, 2024 10:29 am CHEMO ED November 13, 2024 2:56p m RUL LUNG NODULE November 20, 2024 7:41 am Chronic obstructive pulmonary disease, u ns November 26, 2024 9:09am Chronic obstructive pulmonary disease, u ns November 27, 2024 12:07pm Chronic obstructive pulmonary disease, u ns November 28, 2024 12:49pm Reason for Visit Admit Date CAD (coronary artery disease) August 1:12pm S/P AVR (aortic valve replacement) September 03, 2024 1:12pm S/P MVR (mitral valve replacement) September 03, 2024 1:12pm S/P TVR (tricuspid valve repair) August 132024 1:12pm CLL (chronic lymphocytic leukemia) September 122024 10:23am Parotid mass October 02, 2024 10:23 am CLL (chronic lymphocytic leukemia) October 30, 2024 9:56am Parotid mass October 30, 2024 9:56 am CLL (chronic lymphocytic leukemia) November 12, 2024 10:29am COPD (chronic obstructive pulmonary dise ase) November 12, 2024 10:29am Lung nodule November 13, 2024 2:56p m CLL (chronic lymphocytic leukemia) November 13, 2024 2:56pm Parotid mass November 13, 2024 2:56p m Chief Complaint Admit Date SOB (Prah) September 03, 2024 1:1 2pm LABS PRIOR October 02, 2024 10:23 am 12WKS LABS PRIOR October 30, 2024 9:56 am LEUKEMIA November 04, 2024 11:3 0am Shortness of breath November 12, 2024 10:29 am CHEMO ED November 13, 2024 2:56p m RUL LUNG NODULE November 20, 2024 7:41 am Chronic obstructive pulmonary disease, u ns November 26, 2024 9:09am Chronic obstructive pulmonary disease, u ns November 27, 2024 12:07pm Chronic obstructive pulmonary disease, u ns November 28, 2024 12:49pm Follow up after testing December 03, 2024 8:13am Reason for Visit Admit Date CAD (coronary artery disease) August 1:12pm S/P AVR (aortic valve replacement) September 03, 2024 1:12pm S/P MVR (mitral valve replacement) September 03, 2024 1:12pm S/P TVR (tricuspid valve repair) August 132024 1:12pm CLL (chronic lymphocytic leukemia) September 122024 10:23am Parotid mass October 02, 2024 10:23 am CLL (chronic lymphocytic leukemia) October 30, 2024 9:56am Parotid mass October 30, 2024 9:56 am CLL (chronic lymphocytic leukemia) November 12, 2024 10:29am COPD (chronic obstructive pulmonary dise ase) November 12, 2024 10:29am Lung nodule November 13, 2024 2:56p m CLL (chronic lymphocytic leukemia) November 13, 2024 2:56pm Parotid mass November 13, 2024 2:56p m CLL (chronic lymphocytic leukemia) December 03, 2024 8:13am COPD (chronic obstructive pulmonary dise ase) December 03, 2024 8:13am Chief Complaint Admit Date SOB (Prah) September 03, 2024 1:1 2pm LABS PRIOR October 02, 2024 10:23 am 12WKS LABS PRIOR October 30, 2024 9:56 am LEUKEMIA November 04, 2024 11:3 0am Shortness of breath November 12, 2024 10:29 am CHEMO ED November 13, 2024 2:56p m RUL LUNG NODULE November 20, 2024 7:41 am Chronic obstructive pulmonary disease, u ns November 26, 2024 9:09am Chronic obstructive pulmonary disease, u ns November 27, 2024 12:07pm Chronic obstructive pulmonary disease, u ns November 28, 2024 12:49pm Follow up after testing December 03, 2024 8:13am 3WKS NO LABS REVIEW CT December 04, 2024 2 :22pm Reason for Visit Admit Date CAD (coronary artery disease) August 1:12pm S/P AVR (aortic valve replacement) September 03, 2024 1:12pm S/P MVR (mitral valve replacement) September 03, 2024 1:12pm S/P TVR (tricuspid valve repair) August 132024 1:12pm CLL (chronic lymphocytic leukemia) September 122024 10:23am Parotid mass October 02, 2024 10:23 am CLL (chronic lymphocytic leukemia) October 30, 2024 9:56am Parotid mass October 30, 2024 9:56 am CLL (chronic lymphocytic leukemia) November 12, 2024 10:29am COPD (chronic obstructive pulmonary dise ase) November 12, 2024 10:29am Lung nodule November 13, 2024 2:56p m CLL (chronic lymphocytic leukemia) November 13, 2024 2:56pm Parotid mass November 13, 2024 2:56p m Hypoxemia December 03, 2024 8:13 am CLL (chronic lymphocytic leukemia) December 03, 2024 8:13am COPD (chronic obstructive pulmonary dise ase) Gill 23rd, 2025 8:13am Lung nodule December 04, 2024 2:22 pm CLL (chronic lymphocytic leukemia) December 04, 2024 2:22pm Parotid mass December 04, 2024 2:22 pm Chief Complaint Admit Date SOB (Prah) September 03, 2024 1:1 2pm LABS PRIOR October 02, 2024 10:23 am 12WKS LABS PRIOR October 30, 2024 9:56 am Shortness of breath November 12, 2024 10:29 am CHEMO ED November 13, 2024 2:56p m RUL LUNG NODULE November 20, 2024 7:41 am Chronic obstructive pulmonary disease, u ns November 26, 2024 9:09am Chronic obstructive pulmonary disease, u ns November 27, 2024 12:07pm Chronic obstructive pulmonary disease, u ns November 28, 2024 12:49pm Follow up after testing December 03, 2024 8:13am 3WKS NO LABS REVIEW CT December 04, 2024 2 :22pm 2WKS LABS NEW START December 17, 2024 7:2 9am LEUKEMIA December 17, 2024 7:3 0am Reason for Visit Admit Date CAD (coronary artery disease) August 1:12pm S/P AVR (aortic valve replacement) September 03, 2024 1:12pm S/P MVR (mitral valve replacement) September 03, 2024 1:12pm S/P TVR (tricuspid valve repair) August 132024 1:12pm CLL (chronic lymphocytic leukemia) September 122024 10:23am Parotid mass October 02, 2024 10:23 am CLL (chronic lymphocytic leukemia) October 30, 2024 9:56am Parotid mass October 30, 2024 9:56 am CLL (chronic lymphocytic leukemia) November 12, 2024 10:29am COPD (chronic obstructive pulmonary dise ase) November 12, 2024 10:29am Lung nodule November 13, 2024 2:56p m CLL (chronic lymphocytic leukemia) November 13, 2024 2:56pm Parotid mass November 13, 2024 2:56p m Hypoxemia December 03, 2024 8:13 am CLL (chronic lymphocytic leukemia) December 03, 2024 8:13am COPD (chronic obstructive pulmonary dise ase) December 03, 2024 8:13am Lung nodule Gill 24th, 2025 2:22 pm CLL (chronic lymphocytic leukemia) December 04, 2024 2:22pm Parotid mass December 04, 2024 2:22 pm Chemotherapy management, encounter for A ugust 2024 7:29am Encounter for monoclonal antibody treatm ent for malignancy December 17, 2024 7:29am Lung nodule December 17, 2024 7:2 9am CLL (chronic lymphocytic leukemia) Augus t 2024 7:29am Parotid mass December 17, 2024 7:2 9am Chief Complaint Admit Date SOB (Prah) September 03, 2024 1:1 2pm LABS PRIOR October 02, 2024 10:23 am 12WKS LABS PRIOR October 30, 2024 9:56 am Shortness of breath November 12, 2024 10:29 am CHEMO ED November 13, 2024 2:56p m RUL LUNG NODULE November 20, 2024 7:41 am Chronic obstructive pulmonary disease, u ns November 26, 2024 9:09am Chronic obstructive pulmonary disease, u ns November 27, 2024 12:07pm Chronic obstructive pulmonary disease, u ns November 28, 2024 12:49pm Follow up after testing December 03, 2024 8:13am 3WKS NO LABS REVIEW CT December 04, 2024 2 :22pm 2WKS LABS NEW START December 17, 2024 7:2 9am LEUKEMIA December 18, 2024 1:3 0pm SWELLING December 23, 2024 9: 23am Chief Complaint Admit Date SOB (Prah) September 03, 2024 1:1 2pm LABS PRIOR October 02, 2024 10:23 am 12WKS LABS PRIOR October 30, 2024 9:56 am Shortness of breath November 12, 2024 10:29 am CHEMO ED November 13, 2024 2:56p m RUL LUNG NODULE November 20, 2024 7:41 am Chronic obstructive pulmonary disease, u ns November 26, 2024 9:09am Chronic obstructive pulmonary disease, u ns November 27, 2024 12:07pm Chronic obstructive pulmonary disease, u ns November 28, 2024 12:49pm Follow up after testing December 03, 2024 8:13am 3WKS NO LABS REVIEW CT December 04, 2024 2 :22pm 2WKS LABS NEW START December 17, 2024 7:2 9am LEUKEMIA December 18, 2024 1:3 0pm SWELLING December 23, 2024 9: 23am PORT PLACEMENT December 23, 2024 12 :12pm Chief Complaint Admit Date SOB (Prah) September 03, 2024 1:1 2pm LABS PRIOR October 02, 2024 10:23 am 12WKS LABS PRIOR October 30, 2024 9:56 am Shortness of breath November 12, 2024 10:29 am CHEMO ED November 13, 2024 2:56p m RUL LUNG NODULE November 20, 2024 7:41 am Chronic obstructive pulmonary disease, u ns November 26, 2024 9:09am Chronic obstructive pulmonary disease, u ns November 27, 2024 12:07pm Chronic obstructive pulmonary disease, u ns November 28, 2024 12:49pm Follow up after testing December 03, 2024 8:13am 3WKS NO LABS REVIEW CT December 04, 2024 2 :22pm 2WKS LABS NEW START December 17, 2024 7:2 9am SWELLING December 23, 2024 9: 23am PORT PLACEMENT December 23, 2024 12 :12pm 2WKS LABS TOX CHECK December 31, 2024 8: 21am LEUKEMIA December 31, 2024 8: 30am Reason for Visit Admit Date CAD (coronary artery disease) August 1:12pm S/P AVR (aortic valve replacement) September 03, 2024 1:12pm S/P MVR (mitral valve replacement) September 03, 2024 1:12pm S/P TVR (tricuspid valve repair) August 132024 1:12pm CLL (chronic lymphocytic leukemia) September 122024 10:23am Parotid mass October 02, 2024 10:23 am CLL (chronic lymphocytic leukemia) October 30, 2024 9:56am Parotid mass October 30, 2024 9:56 am CLL (chronic lymphocytic leukemia) November 12, 2024 10:29am COPD (chronic obstructive pulmonary dise ase) November 12, 2024 10:29am Lung nodule November 13, 2024 2:56p m CLL (chronic lymphocytic leukemia) November 13, 2024 2:56pm Parotid mass November 13, 2024 2:56p m Hypoxemia December 03, 2024 8:13 am CLL (chronic lymphocytic leukemia) December 03, 2024 8:13am COPD (chronic obstructive pulmonary dise ase) December 03, 2024 8:13am Lung nodule December 04, 2024 2:22 pm CLL (chronic lymphocytic leukemia) December 04, 2024 2:22pm Parotid mass December 04, 2024 2:22 pm Chemotherapy management, encounter for A ugust 2024 7:29am Encounter for monoclonal antibody treatm ent for malignancy December 17, 2024 7:29am Lung nodule December 17, 2024 7:2 9am CLL (chronic lymphocytic leukemia) Augus t 2024 7:29am Parotid mass December 17, 2024 7:2 9am Encounter for insertion of venous access port December 23, 2024 12:12pm CLL (chronic lymphocytic leukemia) Augus t 2024 12:12pm Chemotherapy management, encounter for A ugust 2024 8:21am Encounter for monoclonal antibody treatm ent for malignancy December 31, 2024 8:21am Lung nodule December 31, 2024 8: 21am CLL (chronic lymphocytic leukemia) Augus t 2024 8:21am Parotid mass December 31, 2024 8: 21am Chief Complaint Admit Date LABS PRIOR October 02, 2024 10:23 am 12WKS LABS PRIOR October 30, 2024 9:56 am Shortness of breath November 12, 2024 10:29 am CHEMO ED November 13, 2024 2:56p m RUL LUNG NODULE November 20, 2024 7:41 am Chronic obstructive pulmonary disease, u ns November 26, 2024 9:09am Chronic obstructive pulmonary disease, u ns November 27, 2024 12:07pm Chronic obstructive pulmonary disease, u ns November 28, 2024 12:49pm Follow up after testing December 03, 2024 8:13am 3WKS NO LABS REVIEW CT December 04, 2024 2 :22pm 2WKS LABS NEW START December 17, 2024 7:2 9am SWELLING December 23, 2024 9: 23am PORT PLACEMENT December 23, 2024 12 :12pm 2WKS LABS TOX CHECK December 31, 2024 8: 21am 2WK LABS [place] January 14, 2025 8:05am LEUKEMIA January 14, 2025 8:15am Reason for Visit Admit Date CLL (chronic lymphocytic leukemia) September 122024 10:23am Parotid mass October 02, 2024 10:23 am CLL (chronic lymphocytic leukemia) October 30, 2024 9:56am Parotid mass October 30, 2024 9:56 am CLL (chronic lymphocytic leukemia) November 12, 2024 10:29am COPD (chronic obstructive pulmonary dise ase) November 12, 2024 10:29am Lung nodule November 13, 2024 2:56p m CLL (chronic lymphocytic leukemia) November 13, 2024 2:56pm Parotid mass November 13, 2024 2:56p m Hypoxemia December 03, 2024 8:13 am CLL (chronic lymphocytic leukemia) December 03, 2024 8:13am COPD (chronic obstructive pulmonary dise ase) December 03, 2024 8:13am Lung nodule December 04, 2024 2:22 pm CLL (chronic lymphocytic leukemia) December 04, 2024 2:22pm Parotid mass December 04, 2024 2:22 pm Chemotherapy management, encounter for A ugust 2024 7:29am Encounter for monoclonal antibody treatm ent for malignancy December 17, 2024 7:29am Lung nodule December 17, 2024 7:2 9am CLL (chronic lymphocytic leukemia) Augus t 2024 7:29am Parotid mass December 17, 2024 7:2 9am Encounter for insertion of venous access port December 23, 2024 12:12pm CLL (chronic lymphocytic leukemia) Augus t 2024 12:12pm Chemotherapy management, encounter for A ugust 2024 8:21am Encounter for monoclonal antibody treatm ent for malignancy December 31, 2024 8:21am Lung nodule December 31, 2024 8: 21am CLL (chronic lymphocytic leukemia) Augus t 2024 8:21am Parotid mass December 31, 2024 8: 21am Chemotherapy management, encounter for S adititevannaer 2024 8:05am Encounter for monoclonal antibody treatm ent for malignancy January 14, 2025 8:05am Lung nodule January 14, 2025 8:05am CLL (chronic lymphocytic leukemia) Acaciae vannaer 2024 8:05am Parotid mass January 14, 2025 8:05am Chief Complaint Admit Date LABS PRIOR October 02, 2024 10:23 am 12WKS LABS PRIOR October 30, 2024 9:56 am Shortness of breath November 12, 2024 10:29 am CHEMO ED November 13, 2024 2:56p m RUL LUNG NODULE November 20, 2024 7:41 am Chronic obstructive pulmonary disease, u ns November 26, 2024 9:09am Chronic obstructive pulmonary disease, u ns November 27, 2024 12:07pm Chronic obstructive pulmonary disease, u ns November 28, 2024 12:49pm Follow up after testing December 03, 2024 8:13am 3WKS NO LABS REVIEW CT December 04, 2024 2 :22pm 2WKS LABS NEW START December 17, 2024 7:2 9am SWELLING December 23, 2024 9: 23am PORT PLACEMENT December 23, 2024 12 :12pm 2WKS LABS TOX CHECK December 31, 2024 8: 21am 2WK LABS [place] January 14, 2025 8:05am LEUKEMIA January 15, 2025 1:30pm 6 wk FU January 20, 2025 11:11am Reason for Visit Admit Date CLL (chronic lymphocytic leukemia) September 122024 10:23am Parotid mass October 02, 2024 10:23 am CLL (chronic lymphocytic leukemia) October 30, 2024 9:56am Parotid mass October 30, 2024 9:56 am CLL (chronic lymphocytic leukemia) November 12, 2024 10:29am COPD (chronic obstructive pulmonary dise ase) November 12, 2024 10:29am Lung nodule November 13, 2024 2:56p m CLL (chronic lymphocytic leukemia) November 13, 2024 2:56pm Parotid mass November 13, 2024 2:56p m Hypoxemia December 03, 2024 8:13 am CLL (chronic lymphocytic leukemia) December 03, 2024 8:13am COPD (chronic obstructive pulmonary dise ase) December 03, 2024 8:13am Lung nodule December 04, 2024 2:22 pm CLL (chronic lymphocytic leukemia) December 04, 2024 2:22pm Parotid mass December 04, 2024 2:22 pm Chemotherapy management, encounter for A ugust 2024 7:29am Encounter for monoclonal ant ibody treatment for malignancy December 17, 2024 7:29am Lung nodule December 17, 2024 7:2 9am CLL (chronic lymphocytic leukemia) Augus t 2024 7:29am Parotid mass December 17, 2024 7:2 9am Encounter for insertion of venous access port December 23, 2024 12:12pm CLL (chronic lymphocytic leukemia) Augus t 2024 12:12pm Chemotherapy management, encounter for A ugust 2024 8:21am Encounter for monoclonal ant ibody treatment for malignancy December 31, 2024 8:21am Lung nodule December 31, 2024 8: 21am CLL (chronic lymphocytic leukemia) Augus t 2024 8:21am Parotid mass December 31, 2024 8: 21am Chemotherapy management, encounter for Cruzito pearson 2024 8:05am Encounter for monoclonal ant ibody treatment for malignancy January 14, 2025 8:05am Lung nodule January 14, 2025 8:05am CLL (chronic lymphocytic leukemia) [facility] 2024 8:05am Parotid mass January 14, 2025 8:05am Hypoxemia January 20, 2025 11:11am CLL (chronic lymphocytic leukemia) [facility] 2024 11:11am COPD (chronic obstructive pulmonary dise ase) January 20, 2025 11:11am Chief Complaint Admit Date LABS PRIOR October 02, 2024 10:23 am 12WKS LABS PRIOR October 30, 2024 9:56 am Shortness of breath November 12, 2024 10:29 am CHEMO ED November 13, 2024 2:56p m RUL LUNG NODULE November 20, 2024 7:41 am Chronic obstructive pulmonary disease, u ns November 26, 2024 9:09am Chronic obstructive pulmonary disease, u ns November 27, 2024 12:07pm Chronic obstructive pulmonary disease, u ns November 28, 2024 12:49pm Follow up after testing December 03, 2024 8:13am 3WKS NO LABS REVIEW CT December 04, 2024 2 :22pm 2WKS LABS NEW START December 17, 2024 7:2 9am SWELLING December 23, 2024 9: 23am PORT PLACEMENT December 23, 2024 12 :12pm 2WKS LABS TOX CHECK December 31, 2024 8: 21am 2WK LABS [place] January 14, 2025 8:05am 6 wk FU January 20, 2025 11:11am 2WKS LABS TOX CHECK January 26, 2025 8:03am LEUKEMIA January 26, 2025 8:15am Reason for Visit Admit Date CLL (chronic lymphocytic leukemia) September 122024 10:23am Parotid mass October 02, 2024 10:23 am CLL (chronic lymphocytic leukemia) October 30, 2024 9:56am Parotid mass October 30, 2024 9:56 am CLL (chronic lymphocytic leukemia) November 12, 2024 10:29am COPD (chronic obstructive pulmonary dise ase) November 12, 2024 10:29am Lung nodule November 13, 2024 2:56p m CLL (chronic lymphocytic leukemia) November 13, 2024 2:56pm Parotid mass November 13, 2024 2:56p m Hypoxemia December 03, 2024 8:13 am CLL (chronic lymphocytic leukemia) December 03, 2024 8:13am COPD (chronic obstructive pulmonary dise ase) December 03, 2024 8:13am Lung nodule December 04, 2024 2:22 pm CLL (chronic lymphocytic leukemia) December 04, 2024 2:22pm Parotid mass December 04, 2024 2:22 pm Chemotherapy management, encounter for A ugust 2024 7:29am Encounter for monoclonal ant ibody treatment for malignancy December 17, 2024 7:29am Lung nodule December 17, 2024 7:2 9am CLL (chronic lymphocytic leukemia) Augus t 2024 7:29am Parotid mass December 17, 2024 7:2 9am Encounter for insertion of venous access port December 23, 2024 12:12pm CLL (chronic lymphocytic leukemia) Augus t 2024 12:12pm Chemotherapy management, encounter for A ugust 2024 8:21am Encounter for monoclonal ant ibody treatment for malignancy December 31, 2024 8:21am Lung nodule December 31, 2024 8: 21am CLL (chronic lymphocytic leukemia) Augus t 2024 8:21am Parotid mass December 31, 2024 8: 21am Chemotherapy management, encounter for S eptember 2024 8:05am Encounter for monoclonal ant ibody treatment for malignancy January 14, 2025 8:05am Lung nodule January 14, 2025 8:05am CLL (chronic lymphocytic leukemia) [facility] 2024 8:05am Parotid mass January 14, 2025 8:05am Hypoxemia January 20, 2025 11:11am CLL (chronic lymphocytic leukemia) [facility] 2024 11:11am COPD (chronic obstructive pulmonary dise ase) January 20, 2025 11:11am Fever January 26, 2025 8:03am CLL (chronic lymphocytic leukemia) [facility] 2024 8:03am Parotid mass January 26, 2025 8:03am Chief Complaint Admit Date 12WKS LABS PRIOR October 30, 2024 9:56 am Shortness of breath November 12, 2024 10:29 am CHEMO ED November 13, 2024 2:56p m RUL LUNG NODULE November 20, 2024 7:41 am Chronic obstructive pulmonary disease, u ns November 26, 2024 9:09am Chronic obstructive pulmonary disease, u ns November 27, 2024 12:07pm Chronic obstructive pulmonary disease, u ns November 28, 2024 12:49pm Follow up after testing December 03, 2024 8:13am 3WKS NO LABS REVIEW CT December 04, 2024 2 :22pm 2WKS LABS NEW START December 17, 2024 7:2 9am SWELLING December 23, 2024 9: 23am PORT PLACEMENT December 23, 2024 12 :12pm 2WKS LABS TOX CHECK December 31, 2024 8: 21am 2WK LABS [place] January 14, 2025 8:05am 6 wk FU January 20, 2025 11:11am 2WKS LABS TOX CHECK January 26, 2025 8:03am 2 WEEK, LABS, [place] February 09, 2025 8:04am LEUKEMIA February 10, 2025 1:30pm Reason for Visit Admit Date CLL (chronic lymphocytic leukemia) October 30, 2024 9:56am Parotid mass October 30, 2024 9:56 am CLL (chronic lymphocytic leukemia) November 12, 2024 10:29am COPD (chronic obstructive pulmonary dise ase) November 12, 2024 10:29am Lung nodule November 13, 2024 2:56p m CLL (chronic lymphocytic leukemia) November 13, 2024 2:56pm Parotid mass November 13, 2024 2:56p m Hypoxemia December 03, 2024 8:13 am CLL (chronic lymphocytic leukemia) December 03, 2024 8:13am COPD (chronic obstructive pulmonary dise ase) December 03, 2024 8:13am Lung nodule December 04, 2024 2:22 pm CLL (chronic lymphocytic leukemia) December 04, 2024 2:22pm Parotid mass December 04, 2024 2:22 pm Chemotherapy management, encounter for A ugust 2024 7:29am Encounter for monoclonal ant ibody treatment for malignancy December 17, 2024 7:29am Lung nodule December 17, 2024 7:2 9am CLL (chronic lymphocytic leukemia) Augus t 2024 7:29am Parotid mass December 17, 2024 7:2 9am Encounter for insertion of venous access port December 23, 2024 12:12pm CLL (chronic lymphocytic leukemia) Augus t 2024 12:12pm Chemotherapy management, encounter for A ugust 2024 8:21am Encounter for monoclonal ant ibody treatment for malignancy December 31, 2024 8:21am Lung nodule December 31, 2024 8: 21am CLL (chronic lymphocytic leukemia) Augus t 2024 8:21am Parotid mass December 31, 2024 8: 21am Chemotherapy management, encounter for S eptember 2024 8:05am Encounter for monoclonal ant ibody treatment for malignancy January 14, 2025 8:05am Lung nodule January 14, 2025 8:05am [facility] 2024 8:05am Parotid mass January 14, 2025 8:05am Hypoxemia January 20, 2025 11:11am CLL (chronic lymphocytic leukemia) [facility] 2024 11:11am COPD (chronic obstructive pulmonary dise ase) January 20, 2025 11:11am Fever January 26, 2025 8:03am CLL (chronic lymphocytic leukemia) [facility] 2024 8:03am Parotid mass January 26, 2025 8:03am CLL (chronic lymphocytic leukemia) [facility] 2024 8:04am Parotid mass February 09, 2025 8:04am Chief Complaint Admit Date 12WKS LABS PRIOR October 30, 2024 9:56 am Shortness of breath November 12, 2024 10:29 am CHEMO ED November 13, 2024 2:56p m RUL LUNG NODULE November 20, 2024 7:41 am Chronic obstructive pulmonary disease, u ns November 26, 2024 9:09am Chronic obstructive pulmonary disease, u ns November 27, 2024 12:07pm Chronic obstructive pulmonary disease, u ns November 28, 2024 12:49pm Follow up after testing December 03, 2024 8:13am 3WKS NO LABS REVIEW CT December 04, 2024 2 :22pm 2WKS LABS NEW START December 17, 2024 7:2 9am SWELLING December 23, 2024 9: 23am PORT PLACEMENT December 23, 2024 12 :12pm 2WKS LABS TOX CHECK December 31, 2024 8: 21am 2WK LABS [place] January 14, 2025 8:05am 6 wk FU January 20, 2025 11:11am 2WKS LABS TOX CHECK January 26, 2025 8:03am 2 WEEK, LABS, [place] February 09, 2025 8:04am Acute February 16, 2025 2: 39pm LEUKEMIA February 16, 2025 2: 45pm Reason for Visit Admit Date CLL (chronic lymphocytic leukemia) October 30, 2024 9:56am Parotid mass October 30, 2024 9:56 am CLL (chronic lymphocytic leukemia) November 12, 2024 10:29am COPD (chronic obstructive pulmonary dise ase) November 12, 2024 10:29am Lung nodule November 13, 2024 2:56p m CLL (chronic lymphocytic leukemia) November 13, 2024 2:56pm Parotid mass November 13, 2024 2:56p m Hypoxemia December 03, 2024 8:13 am CLL (chronic lymphocytic leukemia) December 03, 2024 8:13am COPD (chronic obstructive pulmonary dise ase) December 03, 2024 8:13am Lung nodule December 04, 2024 2:22 pm CLL (chronic lymphocytic leukemia) December 04, 2024 2:22pm Parotid mass December 04, 2024 2:22 pm Chemotherapy management, encounter for A ugust 2024 7:29am Encounter for monoclonal ant ibody treatment for malignancy December 17, 2024 7:29am Lung nodule December 17, 2024 7:2 9am CLL (chronic lymphocytic leukemia) Augus t 2024 7:29am Parotid mass December 17, 2024 7:2 9am Encounter for insertion of venous access port December 23, 2024 12:12pm CLL (chronic lymphocytic leukemia) Augus t 2024 12:12pm Chemotherapy management, encounter for A ugust 2024 8:21am Encounter for monoclonal ant ibody treatment for malignancy December 31, 2024 8:21am Lung nodule December 31, 2024 8: 21am CLL (chronic lymphocytic leukemia) Augus t 2024 8:21am Parotid mass December 31, 2024 8: 21am Chemotherapy management, encounter for S adititeshivani 2024 8:05am Encounter for monoclonal ant ibody treatment for malignancy January 14, 2025 8:05am Lung nodule January 14, 2025 8:05am CLL (chronic lymphocytic leukemia) [facility]2024 8:05am Parotid mass January 14, 2025 8:05am Hypoxemia January 20, 2025 11:11am CLL (chronic lymphocytic leukemia) [facility] 2024 11:11am COPD (chronic obstructive pulmonary dise ase) January 20, 2025 11:11am Fever January 26, 2025 8:03am CLL (chronic lymphocytic leukemia) [facility] 2024 8:03am Parotid mass January 26, 2025 8:03am CLL (chronic lymphocytic leukemia) [facility] 2024 8:04am Parotid mass February 09, 2025 8:04am Fever of unknown origin February 16 2:39pm Hypogammaglobulinemia February 16, 2025 2:39pm CLL (chronic lymphocytic leukemia) [facility] 20[facility] 2:39pm Parotid mass February 16, 2025 2: 39pm Chief Complaint Admit Date Shortness of breath November 12, 2024 10:29 am CHEMO ED November 13, 2024 2:56p m RUL LUNG NODULE November 20, 2024 7:41 am Chronic obstructive pulmonary disease, u ns November 26, 2024 9:09am Chronic obstructive pulmonary disease, u ns November 27, 2024 12:07pm Chronic obstructive pulmonary disease, u ns November 28, 2024 12:49pm Follow up after testing December 03, 2024 8:13am 3WKS NO LABS REVIEW CT December 04, 2024 2 :22pm 2WKS LABS NEW START December 17, 2024 7:2 9am SWELLING December 23, 2024 9: 23am PORT PLACEMENT December 23, 2024 12 :12pm 2WKS LABS TOX CHECK December 31, 2024 8: 21am 2WK LABS [place] January 14, 2025 8:05am 6 wk FU January 20, 2025 11:11am 2WKS LABS TOX CHECK January 26, 2025 8:03am 2 WEEK, LABS, [place] February 09, 2025 8:04am Acute February 16, 2025 2: 39pm 2WKS LABS February 24, 2025 7 :38am 2WKS LABS REVIEW PET March 09, 2025 8:37am LEUKEMIA March 09, 2025 8 :45am Reason for Visit Admit Date CLL (chronic lymphocytic leukemia) November 12, 2024 10:29am COPD (chronic obstructive pulmonary dise ase) November 12, 2024 10:29am Lung nodule November 13, 2024 2:56p m CLL (chronic lymphocytic leukemia) November 13, 2024 2:56pm Parotid mass November 13, 2024 2:56p m Hypoxemia December 03, 2024 8:13 am CLL (chronic lymphocytic leukemia) December 03, 2024 8:13am COPD (chronic obstructive pulmonary dise ase) December 03, 2024 8:13am Lung nodule December 04, 2024 2:22 pm CLL (chronic lymphocytic leukemia) December 04, 2024 2:22pm Parotid mass December 04, 2024 2:22 pm Chemotherapy management, encounter for A ugust 2024 7:29am Encounter for monoclonal ant ibody treatment for malignancy December 17, 2024 7:29am Lung nodule December 17, 2024 7:2 9am CLL (chronic lymphocytic leukemia) Augus t 2024 7:29am Parotid mass December 17, 2024 7:2 9am Encounter for insertion of venous access port December 23, 2024 12:12pm CLL (chronic lymphocytic leukemia) Aug[facility] t 2024 12:12pm Chemotherapy management, encounter for A ugust 2024 8:21am Encounter for monoclonal ant ibody treatment for malignancy December 31, 2024 8:21am Lung nodule December 31, 2024 8: 21am CLL (chronic lymphocytic leukemia) Aug[facility] t 2024 8:21am Parotid mass December 31, 2024 8: 21am Chemotherapy management, encounter for S eptember 2024 8:05am Encounter for monoclonal ant ibody treatment for malignancy January 14, 2025 8:05am Lung nodule January 14, 2025 8:05am CLL (chronic lymphocytic leukemia) [facility] 2024 8:05am Parotid mass January 14, 2025 8:05am Hypoxemia January 20, 2025 11:11am CLL (chronic lymphocytic leukemia) [facility] 2024 11:11am COPD (chronic obstructive pulmonary dise ase) January 20, 2025 11:11am Fever January 26, 2025 8:03am CLL (chronic lymphocytic leukemia) [facility] 2024 8:03am Parotid mass January 26, 2025 8:03am CLL (chronic lymphocytic leukemia) [facility] 2024 8:04am Parotid mass February 09, 2025 8:04am Fever of unknown origin February 16 2:39pm CLL (chronic lymphocytic leukemia) [facility] 2024 2:39pm Hypogammaglobulinemia February 16, 2025 2:39pm Parotid mass February 16, 2025 2: 39pm Fever of unknown origin February 24 7:38am CLL (chronic lymphocytic leukemia) [facility] 2024 7:38am Hypogammaglobulinemia February 24, 2025 7:38am Parotid mass February 24, 2025 7 :38am CLL (chronic lymphocytic leukemia) [facility] 2024 8:37am Hypogammaglobulinemia March 09, 2025 8:37am Parotid mass March 09, 2025 8 :37am Additional Source Comments (unrecognized sect ion and content) No Status Records FoundNo Status Records FoundNo Status Records FoundNo Status Records FoundNo Status Records FoundNo Status Records FoundNo Status Records FoundNo Status Records FoundNo Status Records Found INFORMATION SOURCE (unrecogn ized section and content) DATE CREATED AUTHOR 04/18/2019 [facility] DATE CREATED AUTHOR AUTHOR'S ORGANIZ ATION 06/20/2019 [facility] DATE CREATED AUTHOR AUTHOR'S ORGANIZ ATION 09/29/2023 [facility] ([place]) DATE CREATED AUTHOR AUTHOR'S ORGANIZ ATION 07/27/2024 [facility] DATE CREATED AUTHOR AUTHOR'S ORGANIZ ATION 09/22/2024 [facility] DATE CREATED AUTHOR AUTHOR'S ORGANIZ ATION 03/04/2025 [facility] DATE CREATED AUTHOR AUTHOR'S ORGANIZ ATION 03/18/2025 [facility] DATE CREATED AUTHOR AUTHOR'S ORGANIZ ATION 03/24/2025 [facility] DATE CREATED AUTHOR AUTHOR'S ORGANIZ ATION 03/25/2025 [facility] Reason for Visit (unrecogniz ed section and content) Reason Comments Dysphagia while eating dinner earlier got something stuck in his throat, has emesis. states still feels like its there. Transfer from [place] ([facility]) Goals (unrecognized section and content) Goals may be documented in a n alternate sectionGoals may be documented in an alternate sectionGoals may be documented in an alternate sectionGoals may be documented in an alternate sectionGoals may be documented in an alternate sectionGoals may be documented in an alternate sectionGoals may be documented in an alternate sectionGoals may be documented in an alternate sectionGoals may be documented in an alternate sectionGoals may be documented in an alternate sectionGoals may be documented in an alternate sectionGoals may be documented in an alternate sectionGoals may be documented in an alternate sectionGoals may be documented in an alternate sectionGoals may be documented in an alternate sectionGoals may be documented in an alternate sectionGoals may be documented in an alternate sectionGoals may be documented in an alternate sectionGoals may be documented in an alternate sectionGoals may be documented in an alternate sectionGoals may be documented in an alternate section Care Teams (unrecognized sec tion and content) Team Status: Active Member Role Status Dates Dr. Shira Pavon MD Primary Care Provider Active Team Status: Inactive Member Role Status Dates Dr. Shira Pavon MD Primary Care Provider, Referring Provider Active Dr. Clement Lewis MD Attending Provider Active Team Status: Active Member Role Status Dates Dr. Shira Pavon MD Primary Care Provider Active Dr. Clement Lewis MD Attending Provider, Referring Pro vider Active Team Status: Inactive Member Role Status Dates Dr. Shira Pavon MD Primary Care Provider Active Dr. Clement Lewis MD Attending Provider, Referring Pro vider Active Team Status: Inactive Member Role Status Dates Dr. Shira Pavon MD Primary Care Provider Active Dr. Ronal Gurrola MD Attending Provider, Referring Pr ovider Active Team Status: Inactive Member Role Status Dates Dr. Shira Pavon MD Primary Care Provider Active Start: July 24, 2024 End: July 24, 2024 Dr. Shira Pavon MD Referring Provider Active Start: July 24, 2024 End: July 24, 2024 Dr. Clement Lewis MD Attending Provider Active S tart: July 24, 2024 End: July 24, 2024 Team Status: Inactive Member Role Status Dates Dr. Shira Pavon MD Primary Care Provider Active Start: July 31, 2024 End: July 31, 2024 Dr. Shira Pavon MD Referring Provider Active Start: July 31, 2024 End: July 31, 2024 Dr. Clement Lewis MD Attending Provider Active S tart: July 31, 2024 End: July 31, 2024 Team Status: Inactive Member Role Status Dates Dr. Shira Pavon MD Primary Care Provider Active Start: September 03, 2024 End: September 03, 2024 Dr. Shira Pavon MD Referring Provider Active Start: September 03, 2024 End: September 03, 2024 Dr. Jose Shaw MD Attending Provider Active S tart: September 03, 2024 End: September 03, 2024 Team Status: Inactive Member Role Status Dates Dr. Shira Pavon MD Primary Care Provider Active Start: October 02, 2024 End: October 02, 2024 Dr. Shira Pavon MD Referring Provider Active Start: October 02, 2024 End: October 02, 2024 Dr. Clement Lewis MD Attending Provider Active S tart: October 02, 2024 End: October 02, 2024 Team Status: Inactive Member Role Status Dates Dr. Shira Pavon MD Primary Care Provider Active Start: October 30, 2024 End: October 30, 2024 Dr. Shira Pavon MD Referring Provider Active Start: October 30, 2024 End: October 30, 2024 Dr. Clement Lewis MD Attending Provider Active S tart: October 30, 2024 End: October 30, 2024 Team Status: Active Member Role Status Dates Dr. Shira Pavon MD Primary Care Provider Active Start: October 30, 2024 Dr. Clement Lewis MD Attending Provider Active S tart: October 30, 2024 Dr. Clement Lewis MD Referring Provider Active S tart: October 30, 2024 Team Status: Active Member Role/Relationship Status Dates Dr. Shira Pavon MD Primary Care Provider Active Team Status: Inactive Member Role/Relationship Status Dates Dr. Shira Pavon MD Primary Care Provider Active Start: July 24, 2024 End: July 24, 2024 Dr. Shira Pavon MD Referring Provider Active Start: July 24, 2024 End: July 24, 2024 Dr. Clement Lewis MD Attending Provider Active S tart: July 24, 2024 End: July 24, 2024 Team Status: Inactive Member Role/Relationship Status Dates Dr. Shira Pavon MD Primary Care Provider Active Start: July 31, 2024 End: July 31, 2024 Dr. Shira Pavon MD Referring Provider Active Start: July 31, 2024 End: July 31, 2024 Dr. Clement Lewis MD Attending Provider Active S tart: July 31, 2024 End: July 31, 2024 Team Status: Inactive Member Role/Relationship Status Dates Dr. Shira Pavon MD Primary Care Provider Active Start: September 03, 2024 End: September 03, 2024 Dr. Shira Pavon MD Referring Provider Active Start: September 03, 2024 End: September 03, 2024 Dr. Jose Shaw MD Attending Provider Active S tart: September 03, 2024 End: September 03, 2024 Team Status: Inactive Member Role/Relationship Status Dates Dr. Shira Pavon MD Primary Care Provider Active Start: October 02, 2024 End: October 02, 2024 Dr. Shira Pavon MD Referring Provider Active Start: October 02, 2024 End: October 02, 2024 Dr. Clement Lewis MD Attending Provider Active S tart: October 02, 2024 End: October 02, 2024 Team Status: Inactive Member Role/Relationship Status Dates Dr. Shira Pavon MD Primary Care Provider Active Start: October 30, 2024 End: October 30, 2024 Dr. Shira Pavon MD Referring Provider Active Start: October 30, 2024 End: October 30, 2024 Dr. Clement Lewis MD Attending Provider Active S tart: October 30, 2024 End: October 30, 2024 Team Status: Active Member Role/Relationship Status Dates Dr. Shira Pavon MD Primary Care Provider Active Start: November 04, 2024 Dr. Clement Lewis MD Attending Provider Active S tart: November 04, 2024 Dr. Clement Lewis MD Referring Provider Active S tart: November 04, 2024 Team Status: Inactive Member Role/Relationship Status Dates Dr. Shira Pavon MD Primary Care Provider Active Start: November 12, 2024 End: November 12, 2024 Dr. Shira Pavon MD Referring Provider Active Start: November 12, 2024 End: November 12, 2024 Dr. Magdi Strauss DO Attending Provider Active S tart: November 12, 2024 End: November 12, 2024 Team Status: Inactive Member Role/Relationship Status Dates Dr. Shira Pavon MD Primary Care Provider Active Start: November 13, 2024 End: November 13, 2024 Dr. Shira Pavon MD Referring Provider Active Start: November 13, 2024 End: November 13, 2024 Billie Del Rio DOLL SURGEON, DOLL SURGEON-C Attending Provider Active Start: November 13, 2024 End: November 13, 2024 Team Status: Inactive Member Role/Relationship Status Dates Dr. Shira Pavon MD Primary Care Provider Active Start: July 31, 2024 End: July 31, 2024 Dr. Shira Pavon MD Referring Provider Active Start: July 31, 2024 End: July 31, 2024 Dr. Clement Lewis MD Attending Provider Active S tart: July 31, 2024 End: July 31, 2024 Team Status: Inactive Member Role/Relationship Status Dates Dr. Shira Pavon MD Primary Care Provider Active Start: September 03, 2024 End: September 03, 2024 Dr. Shira Pavon MD Referring Provider Active Start: September 03, 2024 End: September 03, 2024 Dr. Jose Shaw MD Attending Provider Active S tart: September 03, 2024 End: September 03, 2024 Team Status: Inactive Member Role/Relationship Status Dates Dr. Shira Pavon MD Primary Care Provider Active Start: October 02, 2024 End: October 02, 2024 Dr. Shira Pavon MD Referring Provider Active Start: October 02, 2024 End: October 02, 2024 Dr. Clement Lewis MD Attending Provider Active S tart: October 02, 2024 End: October 02, 2024 Team Status: Inactive Member Role/Relationship Status Dates Dr. Shira Pavon MD Primary Care Provider Active Start: October 30, 2024 End: October 30, 2024 Dr. Shira Pavon MD Referring Provider Active Start: October 30, 2024 End: October 30, 2024 Dr. Clement Lewis MD Attending Provider Active S tart: October 30, 2024 End: October 30, 2024 Team Status: Active Member Role/Relationship Status Dates Dr. Shira Pavon MD Primary Care Provider Active Start: November 04, 2024 Dr. Clement Lewis MD Attending Provider Active S tart: November 04, 2024 Dr. Clement Lewis MD Referring Provider Active S tart: November 04, 2024 Team Status: Inactive Member Role/Relationship Status Dates Dr. Shira Pavon MD Primary Care Provider Active Start: November 12, 2024 End: November 12, 2024 Dr. Shira Pavon MD Referring Provider Active Start: November 12, 2024 End: November 12, 2024 Dr. Magdi Strauss DO Attending Provider Active S tart: November 12, 2024 End: November 12, 2024 Team Status: Inactive Member Role/Relationship Status Dates Dr. Shira Pavon MD Primary Care Provider Active Start: November 13, 2024 End: November 13, 2024 Dr. Shira Pavon MD Referring Provider Active Start: November 13, 2024 End: November 13, 2024 Billie Quang DOLL SURGEON, DOLL SURGEON-C Attending Provider Active Start: November 13, 2024 End: November 13, 2024 Team Status: Inactive Member Role/Relationship Status Dates Dr. Shira Pavon MD Primary Care Provider Active Start: November 20, 2024 End: November 20, 2024 Billie Quang DOLL SURGEON, DOLL SURGEON-C Attending Provider Active Start: November 20, 2024 End: November 20, 2024 Billie Quang DOLL SURGEON, DOLL SURGEON-C Referring Provider Active Start: November 20, 2024 End: November 20, 2024 Team Status: Active Member Role/Relationship Status Dates Dr. Shira Pavon MD Primary Care Provider Active Start: November 26, 2024 Dr. Magdi Strauss DO Attending Provider Active S tart: November 26, 2024 Dr. Magdi Strauss DO Referring Provider Active S tart: November 26, 2024 Team Status: Active Member Role/Relationship Status Dates Dr. Shira Pavon MD Primary Care Provider Active Start: November 27, 2024 Dr. Magdi Strauss DO Attending Provider Active S tart: November 27, 2024 Dr. Magdi Strauss DO Referring Provider Active S tart: November 27, 2024 Team Status: Inactive Member Role/Relationship Status Dates Dr. Shira Pavon MD Primary Care Provider Active Start: September 03, 2024 End: September 03, 2024 Dr. Shira Pavon MD Referring Provider Active Start: September 03, 2024 End: September 03, 2024 Dr. Jose Shaw MD Attending Provider Active S tart: September 03, 2024 End: September 03, 2024 Team Status: Inactive Member Role/Relationship Status Dates Dr. Shira Pavon MD Primary Care Provider Active Start: October 02, 2024 End: October 02, 2024 Dr. Shira Pavon MD Referring Provider Active Start: October 02, 2024 End: October 02, 2024 Dr. Clement Lewis MD Attending Provider Active S tart: October 02, 2024 End: October 02, 2024 Team Status: Inactive Member Role/Relationship Status Dates Dr. Shira Pavon MD Primary Care Provider Active Start: October 30, 2024 End: October 30, 2024 Dr. Shira Pavon MD Referring Provider Active Start: October 30, 2024 End: October 30, 2024 Dr. Clement Lewis MD Attending Provider Active S tart: October 30, 2024 End: October 30, 2024 Team Status: Active Member Role/Relationship Status Dates Dr. Shira Pavon MD Primary Care Provider Active Start: November 04, 2024 Dr. Clement Lewis MD Attending Provider Active S tart: November 04, 2024 Dr. Clement Lewis MD Referring Provider Active S tart: November 04, 2024 Team Status: Inactive Member Role/Relationship Status Dates Dr. Shira Pavon MD Primary Care Provider Active Start: November 12, 2024 End: November 12, 2024 Dr. Shira Pavon MD Referring Provider Active Start: November 12, 2024 End: November 12, 2024 Dr. Magdi Strauss DO Attending Provider Active S tart: November 12, 2024 End: November 12, 2024 Team Status: Inactive Member Role/Relationship Status Dates Dr. Shira Pavon MD Primary Care Provider Active Start: November 13, 2024 End: November 13, 2024 Dr. Shira Pavon MD Referring Provider Active Start: November 13, 2024 End: November 13, 2024 Billie Del Rio DOLL SURGEON, DOLL SURGEON-C Attending Provider Active Start: November 13, 2024 End: November 13, 2024 Team Status: Inactive Member Role/Relationship Status Dates Dr. Shira Pavon MD Primary Care Provider Active Start: November 20, 2024 End: November 20, 2024 Billie Del Rio DOLL SURGEON, DOLL SURGEON-C Attending Provider Active Start: November 20, 2024 End: November 20, 2024 Billie Del Rio DOLL SURGEON, DOLL SURGEON-C Referring Provider Active Start: November 20, 2024 End: November 20, 2024 Team Status: Inactive Member Role/Relationship Status Dates Dr. Shira Pavon MD Primary Care Provider Active Start: November 26, 2024 End: November 26, 2024 Dr. Magdi Strauss , Attending Provider Active S tart: November 26, 2024 End: November 26, 2024 Dr. Magdi Strauss DO Referring Provider Active S tart: November 26, 2024 End: November 26, 2024 Team Status: Active Member Role/Relationship Status Dates Dr. Shira Pavon MD Primary Care Provider Active Start: November 27, 2024 Dr. Magdi Strauss DO Attending Provider Active S tart: November 27, 2024 Dr. Magdi Strauss DO Referring Provider Active S tart: November 27, 2024 Team Status: Active Member Role/Relationship Status Dates Dr. Shira Pavon MD Primary Care Provider Active Start: November 28, 2024 Dr. Magdi Strauss DO Attending Provider Active S tart: November 28, 2024 Dr. Magdi Strauss DO Referring Provider Active S tart: November 28, 2024 Dr. Magdi Strauss DO Other Provider Active Start : November 28, 2024 Team Status: Inactive Member Role/Relationship Status Dates Dr. Shira Pavon MD Primary Care Provider Active Start: November 27, 2024 End: November 27, 2024 Dr. Magdi Strauss , Attending Provider Active S tart: November 27, 2024 End: November 27, 2024 Dr. Magdi Strauss DO Referring Provider Active S tart: November 27, 2024 End: November 27, 2024 Team Status: Inactive Member Role/Relationship Status Dates Dr. Shira Pavon MD Primary Care Provider Active Start: December 03, 2024 End: December 03, 2024 Dr. Shira Pavon MD Referring Provider Active Start: December 03, 2024 End: December 03, 2024 Idania Botello NP-C Attending Provider Active Start: December 03, 2024 End: December 03, 2024 Team Status: Inactive Member Role/Relationship Status Dates Dr. Shira Pavon MD Primary Care Provider Active Start: December 04, 2024 End: December 04, 2024 Dr. Shira Pavon MD Referring Provider Active Start: December 04, 2024 End: December 04, 2024 Dr. Clement Lewis MD Attending Provider Active S tart: December 04, 2024 End: December 04, 2024 Team Status: Inactive Member Role/Relationship Status Dates Dr. Shira Pavon MD Primary Care Provider Active Start: November 12, 2024 End: November 12, 2024 Dr. Shira Pavon MD Referring Provider Active Start: November 12, 2024 End: November 12, 2024 Dr. Magdi Strauss DO Attending Provider Active S tart: November 12, 2024 End: November 12, 2024 Team Status: Inactive Member Role/Relationship Status Dates Dr. Shira Pavon MD Primary Care Provider Active Start: November 13, 2024 End: November 13, 2024 Dr. Shira Pavon MD Referring Provider Active Start: November 13, 2024 End: November 13, 2024 Billie Del Rio DOLL SURGEON, DOLL SURGEON-C Attending Provider Active Start: November 13, 2024 End: November 13, 2024 Team Status: Inactive Member Role/Relationship Status Dates Dr. Shira Pavon MD Primary Care Provider Active Start: November 20, 2024 End: November 20, 2024 Billie Del Rio DOLL SURGEON, DOLL SURGEON-C Attending Provider Active Start: November 20, 2024 End: November 20, 2024 Billieradha Del Rio DOLL SURGEON, DOLL SURGEON-C Referring Provider Active Start: November 20, 2024 End: November 20, 2024 Team Status: Inactive Member Role/Relationship Status Dates Dr. Shira Pavon MD Primary Care Provider Active Start: November 26, 2024 End: November 26, 2024 Dr. Magdi Strauss , Attending Provider Active S tart: November 26, 2024 End: November 26, 2024 Dr. Magdi Strauss DO Referring Provider Active S tart: November 26, 2024 End: November 26, 2024 Team Status: Inactive Member Role/Relationship Status Dates Dr. Shira Pavon MD Primary Care Provider Active Start: November 27, 2024 End: November 27, 2024 Dr. Magdi Strauss DO Attending Provider Active S tart: November 27, 2024 End: November 27, 2024 Dr. Magdi Strauss DO Referring Provider Active S tart: November 27, 2024 End: November 27, 2024 Team Status: Active Member Role/Relationship Status Dates Dr. Shira Pavon MD Primary Care Provider Active Start: November 28, 2024 Dr. Magdi Strauss DO Attending Provider Active S tart: November 28, 2024 Dr. Magdi Strauss DO Referring Provider Active S tart: November 28, 2024 Dr. Magdi Strauss DO Other Provider Active Start : November 28, 2024 Team Status: Inactive Member Role/Relationship Status Dates Dr. Shira Pavon MD Primary Care Provider Active Start: December 03, 2024 End: December 03, 2024 Dr. Shira Pavon MD Referring Provider Active Start: December 03, 2024 End: December 03, 2024 JAROD Scott Attending Provider Active Start: December 03, 2024 End: December 03, 2024 Team Status: Inactive Member Role/Relationship Status Dates Dr. Shira Pavon MD Primary Care Provider Active Start: December 04, 2024 End: December 04, 2024 Dr. Shira Pavon MD Referring Provider Active Start: December 04, 2024 End: December 04, 2024 Dr. Clement Lewis MD Attending Provider Active S tart: December 04, 2024 End: December 04, 2024 Team Status: Inactive Member Role/Relationship Status Dates Dr. Shira Pavon MD Primary Care Provider Active Start: December 17, 2024 End: December 17, 2024 Dr. Shira Pavon MD Referring Provider Active Start: December 17, 2024 End: December 17, 2024 Dr. Clement Lewis MD Attending Provider Active S tart: December 17, 2024 End: December 17, 2024 Team Status: Active Member Role/Relationship Status Dates Dr. Shira Pavon MD Primary Care Provider Active Start: December 17, 2024 Dr. Clement Lewis MD Attending Provider Active S tart: December 17, 2024 Dr. Clement Lewis MD Referring Provider Active S tart: December 17, 2024 Team Status: Active Member Role/Relationship Status Dates Dr. Shira Pavon MD Primary Care Provider Active Start: December 18, 2024 Dr. Clement Lewis MD Attending Provider Active S tart: December 18, 2024 Dr. Clement Lewis MD Referring Provider Active S tart: December 18, 2024 Team Status: Inactive Member Role/Relationship Status Dates Dr. Shira Pavon MD Primary Care Provider Active Start: December 23, 2024 End: December 23, 2024 Dr. Jose Taylor MD Emergency Provider Active Sta rt: December 23, 2024 End: December 23, 2024 Team Status: Inactive Member Role/Relationship Status Dates Dr. Shira Pavon MD Primary Care Provider Active Start: December 23, 2024 End: December 23, 2024 Dr. Shira Pavon MD Referring Provider Active Start: December 23, 2024 End: December 23, 2024 Dr. Gallo Bailey MD Attending Provider Active Start: December 23, 2024 End: December 23, 2024 Team Status: Inactive Member Role/Relationship Status Dates Dr. Shira Pavon MD Primary Care Provider Active Start: December 23, 2024 End: December 23, 2024 Dr. Jose Taylor MD Attending Provider Active Sta rt: December 23, 2024 End: December 23, 2024 Dr. Jose Taylor MD Emergency Provider Active Sta rt: December 23, 2024 End: December 23, 2024 Team Status: Inactive Member Role/Relationship Status Dates Dr. Shira Pavon MD Primary Care Provider Active Start: December 23, 2024 End: December 23, 2024 Dr. Shira Pavon MD Referring Provider Active Start: December 23, 2024 End: December 23, 2024 Dr. Gallo Bailey MD Attending Provider Active Start: December 23, 2024 End: December 23, 2024 Team Status: Inactive Member Role/Relationship Status Dates Dr. Shira Pavon MD Primary Care Provider Active Start: December 31, 2024 End: December 31, 2024 Dr. Shira Pavon MD Referring Provider Active Start: December 31, 2024 End: December 31, 2024 Dr. Demetra Sotelo MD Attending Provider Active Start: December 31, 2024 End: December 31, 2024 Team Status: Active Member Role/Relationship Status Dates Dr. Shira Pavon MD Primary Care Provider Active Start: December 31, 2024 Dr. Clement Lewis MD Attending Provider Active S tart: December 31, 2024 Dr. Clement Lewis MD Referring Provider Active S tart: December 31, 2024 Team Status: Inactive Member Role/Relationship Status Dates Dr. Shira Pavon MD Primary Care Provider Active Start: October 02, 2024 End: October 02, 2024 Dr. Shira Pavon MD Referring Provider Active Start: October 02, 2024 End: October 02, 2024 Dr. Clement Lewis MD Attending Provider Active S tart: October 02, 2024 End: October 02, 2024 Team Status: Inactive Member Role/Relationship Status Dates Dr. Shira Pavon MD Primary Care Provider Active Start: October 30, 2024 End: October 30, 2024 Dr. Shira Pavon MD Referring Provider Active Start: October 30, 2024 End: October 30, 2024 Dr. Clement Lewis MD Attending Provider Active S tart: October 30, 2024 End: October 30, 2024 Team Status: Inactive Member Role/Relationship Status Dates Dr. Shira Pavon MD Primary Care Provider Active Start: November 12, 2024 End: November 12, 2024 Dr. Shira Pavon MD Referring Provider Active Start: November 12, 2024 End: November 12, 2024 Dr. Magdi Strauss DO Attending Provider Active S tart: November 12, 2024 End: November 12, 2024 Team Status: Inactive Member Role/Relationship Status Dates Dr. Shira Pavon MD Primary Care Provider Active Start: November 13, 2024 End: November 13, 2024 Dr. Shira Pavon MD Referring Provider Active Start: November 13, 2024 End: November 13, 2024 Billie Del Rio NP, DOLL SURGEON-C Attending Provider Active Start: November 13, 2024 End: November 13, 2024 Team Status: Inactive Member Role/Relationship Status Dates Dr. Shira Pavon MD Primary Care Provider Active Start: November 20, 2024 End: November 20, 2024 Billie Del Rio DOLL SURGEON, DOLL SURGEON-C Attending Provider Active Start: November 20, 2024 End: November 20, 2024 Billie Del Rio DOLL SURGEON, DOLL SURGEON-C Referring Provider Active Start: November 20, 2024 End: November 20, 2024 Team Status: Inactive Member Role/Relationship Status Dates Dr. Shira Pavon MD Primary Care Provider Active Start: November 26, 2024 End: November 26, 2024 Dr. Magdi Strauss DO Attending Provider Active S tart: November 26, 2024 End: November 26, 2024 Dr. Magdi Strauss DO Referring Provider Active S tart: November 26, 2024 End: November 26, 2024 Team Status: Inactive Member Role/Relationship Status Dates Dr. Shira Pavon MD Primary Care Provider Active Start: November 27, 2024 End: November 27, 2024 Dr. Magdi Strauss DO Attending Provider Active S tart: November 27, 2024 End: November 27, 2024 Dr. Magdi Strauss DO Referring Provider Active S tart: November 27, 2024 End: November 27, 2024 Team Status: Active Member Role/Relationship Status Dates Dr. Shira Pavon MD Primary Care Provider Active Start: November 28, 2024 Dr. Magdi Strauss DO Attending Provider Active S tart: November 28, 2024 Dr. Magdi Strauss DO Referring Provider Active S tart: November 28, 2024 Dr. Magdi Strauss DO Other Provider Active Start : November 28, 2024 Team Status: Inactive Member Role/Relationship Status Dates Dr. Shira Pavon MD Primary Care Provider Active Start: December 03, 2024 End: December 03, 2024 Dr. Shira Pavon MD Referring Provider Active Start: December 03, 2024 End: December 03, 2024 Idania Botello NP-C Attending Provider Active Start: December 03, 2024 End: December 03, 2024 Team Status: Inactive Member Role/Relationship Status Dates Dr. Shira Pavon MD Primary Care Provider Active Start: December 04, 2024 End: December 04, 2024 Dr. Shira Pavon MD Referring Provider Active Start: December 04, 2024 End: December 04, 2024 Dr. Clement Lewis MD Attending Provider Active S tart: December 04, 2024 End: December 04, 2024 Team Status: Inactive Member Role/Relationship Status Dates Dr. Shira Pavon MD Primary Care Provider Active Start: December 17, 2024 End: December 17, 2024 Dr. Shira Pavon MD Referring Provider Active Start: December 17, 2024 End: December 17, 2024 Dr. Clement Lewis MD Attending Provider Active S tart: December 17, 2024 End: December 17, 2024 Team Status: Inactive Member Role/Relationship Status Dates Dr. Shira Pavon MD Primary Care Provider Active Start: December 23, 2024 End: December 23, 2024 Dr. Jose Taylor MD Attending Provider Active Sta rt: December 23, 2024 End: December 23, 2024 Dr. Jose Taylor MD Emergency Provider Active Sta rt: December 23, 2024 End: December 23, 2024 Team Status: Inactive Member Role/Relationship Status Dates Dr. Shira Pavon MD Primary Care Provider Active Start: December 23, 2024 End: December 23, 2024 Dr. Shira Pavon MD Referring Provider Active Start: December 23, 2024 End: December 23, 2024 Dr. Gallo Bailey MD Attending Provider Active Start: December 23, 2024 End: December 23, 2024 Team Status: Inactive Member Role/Relationship Status Dates Dr. Shira Pavon MD Primary Care Provider Active Start: December 31, 2024 End: December 31, 2024 Dr. Shira Pavon MD Referring Provider Active Start: December 31, 2024 End: December 31, 2024 Dr. Demetra Sotelo MD Attending Provider Active Start: December 31, 2024 End: December 31, 2024 Team Status: Inactive Member Role/Relationship Status Dates Dr. Shira Pavon MD Primary Care Provider Active Start: January 14, 2025 End: January 14, 2025 Dr. Shira Pavon MD Referring Provider Active Start: January 14, 2025 End: January 14, 2025 Billie Del Rio NP, DOLL SURGEON-C Attending Provider Active Start: January 14, 2025 End: January 14, 2025 Team Status: Active Member Role/Relationship Status Dates Dr. Shira Pavon MD Primary Care Provider Active Start: January 14, 2025 Dr. Clement Lewis MD Attending Provider Active S tart: January 14, 2025 Dr. Clement Lewis MD Referring Provider Active S tart: January 14, 2025 Team Status: Active Member Role/Relationship Status Dates Dr. Shira Pavon MD Primary Care Provider Active Start: January 15, 2025 Dr. Clement Lewis MD Attending Provider Active S tart: January 15, 2025 Dr. Clement Lewis MD Referring Provider Active S tart: January 15, 2025 Team Status: Inactive Member Role/Relationship Status Dates Dr. Shira Pavon MD Primary Care Provider Active Start: January 20, 2025 End: January 20, 2025 Dr. Shira Pavon MD Referring Provider Active Start: January 20, 2025 End: January 20, 2025 Idania Botello NP-C Attending Provider Active Start: January 20, 2025 End: January 20, 2025 Team Status: Inactive Member Role/Relationship Status Dates Dr. Shira Pavon MD Primary Care Provider Active Start: January 20, 2025 End: January 20, 2025 Dr. Shira Pavon MD Referring Provider Active Start: January 20, 2025 End: January 20, 2025 Idania Botello NP-C Attending Provider Active Start: January 20, 2025 End: January 20, 2025 Team Status: Inactive Member Role/Relationship Status Dates Dr. Shira Pavon MD Primary Care Provider Active Start: January 26, 2025 End: January 26, 2025 Dr. Shira Pavon MD Referring Provider Active Start: January 26, 2025 End: January 26, 2025 Dr. Clement Lewis MD Attending Provider Active S tart: January 26, 2025 End: January 26, 2025 Team Status: Active Member Role/Relationship Status Dates Dr. Shira Pavon MD Primary Care Provider Active Start: January 26, 2025 Dr. Clement Lewis MD Attending Provider Active S tart: January 26, 2025 Dr. Clement Lewis MD Referring Provider Active S tart: January 26, 2025 Team Status: Active Member Role/Relationship Status Dates Dr. Shira Pavon MD Primary care physician Active Team Status: Inactive Member Role/Relationship Status Dates Dr. Shira Pavon MD Primary care physician Active Start: October 30, 2024 End: October 30, 2024 Dr. Shira Pavon MD Referring Provider Active Start: October 30, 2024 End: October 30, 2024 Dr. Clement Lewis MD Attending physician Active Start: October 30, 2024 End: October 30, 2024 Team Status: Inactive Member Role/Relationship Status Dates Dr. Shira Pavon MD Primary care physician Active Start: November 12, 2024 End: November 12, 2024 Dr. Shira Pavon MD Referring Provider Active Start: November 12, 2024 End: November 12, 2024 Dr. Magdi Strauss DO Attending physician Active Start: November 12, 2024 End: November 12, 2024 Team Status: Inactive Member Role/Relationship Status Dates Dr. Shira Pavon MD Primary care physician Active Start: November 13, 2024 End: November 13, 2024 Dr. Shira Pavon MD Referring Provider Active Start: November 13, 2024 End: November 13, 2024 Billie Quang DOLL SURGEON, DOLL SURGEON-C Attending physician Active Start: November 13, 2024 End: November 13, 2024 Team Status: Inactive Member Role/Relationship Status Dates Dr. Shira Pavon MD Primary care physician Active Start: November 20, 2024 End: November 20, 2024 Billie Quang DOLL SURGEON, DOLL SURGEON-C Attending physician Active Start: November 20, 2024 End: November 20, 2024 Billie Quang DOLL SURGEON, DOLL SURGEON-C Referring Provider Active Start: November 20, 2024 End: November 20, 2024 Team Status: Inactive Member Role/Relationship Status Dates Dr. Shira Pavon MD Primary care physician Active Start: November 26, 2024 End: November 26, 2024 Dr. Magdi Strauss DO Attending physician Active Start: November 26, 2024 End: November 26, 2024 Dr. Magdi Strauss DO Referring Provider Active S tart: November 26, 2024 End: November 26, 2024 Team Status: Inactive Member Role/Relationship Status Dates Dr. Shira Pavon MD Primary care physician Active Start: November 27, 2024 End: November 27, 2024 Dr. Magdi Strauss DO Attending physician Active Start: November 27, 2024 End: November 27, 2024 Dr. Magdi Strauss DO Referring Provider Active S tart: November 27, 2024 End: November 27, 2024 Team Status: Active Member Role/Relationship Status Dates Dr. Shira Pavon MD Primary care physician Active Start: November 28, 2024 Dr. Magdi Strauss DO Attending physician Active Start: November 28, 2024 Dr. Magdi Strauss DO Referring Provider Active S tart: November 28, 2024 Dr. Magdi Strauss DO Nurse Practitioner Active S tart: November 28, 2024 Team Status: Inactive Member Role/Relationship Status Dates Dr. Shira Pavon MD Primary care physician Active Start: December 03, 2024 End: December 03, 2024 Dr. Shira Pavon MD Referring Provider Active Start: December 03, 2024 End: December 03, 2024 OSMAN ScottC Attending physician Active Start: December 03, 2024 End: December 03, 2024 Team Status: Inactive Member Role/Relationship Status Dates Dr. Shira Pavon MD Primary care physician Active Start: December 04, 2024 End: December 04, 2024 Dr. Shira Pavon MD Referring Provider Active Start: December 04, 2024 End: December 04, 2024 Dr. Clement Lewis MD Attending physician Active Start: December 04, 2024 End: December 04, 2024 Team Status: Inactive Member Role/Relationship Status Dates Dr. Shira Pavon MD Primary care physician Active Start: December 17, 2024 End: December 17, 2024 Dr. Shira Pavon MD Referring Provider Active Start: December 17, 2024 End: December 17, 2024 Dr. Clement Lewis MD Attending physician Active Start: December 17, 2024 End: December 17, 2024 Team Status: Inactive Member Role/Relationship Status Dates Dr. Shira Pavon MD Primary care physician Active Start: December 23, 2024 End: December 23, 2024 Dr. Jose Taylor MD Attending physician Active St art: December 23, 2024 End: December 23, 2024 Dr. Jose Taylor MD Emergency Department Physician Acti ve Start: December 23, 2024 End: December 23, 2024 Team Status: Inactive Member Role/Relationship Status Dates Dr. Shira Pavon MD Primary care physician Active Start: December 23, 2024 End: December 23, 2024 Dr. Shira Pavon MD Referring Provider Active Start: December 23, 2024 End: December 23, 2024 Dr. Gallo Bailey MD Attending physician Active Start: December 23, 2024 End: December 23, 2024 Team Status: Inactive Member Role/Relationship Status Dates Dr. Shira Pavon MD Primary care physician Active Start: December 31, 2024 End: December 31, 2024 Dr. Shira Pavon MD Referring Provider Active Start: December 31, 2024 End: December 31, 2024 Dr. Demetra Sotelo MD Attending physician Active Start: December 31, 2024 End: December 31, 2024 Team Status: Inactive Member Role/Relationship Status Dates Dr. Shira Pavon MD Primary care physician Active Start: January 14, 2025 End: January 14, 2025 Dr. Shira Pavon MD Referring Provider Active Start: January 14, 2025 End: January 14, 2025 Billie Del Rio NP, DOLL SURGEON-C Attending physician Active Start: January 14, 2025 End: January 14, 2025 Team Status: Inactive Member Role/Relationship Status Dates Dr. Shira Pavon MD Primary care physician Active Start: January 20, 2025 End: January 20, 2025 Dr. Shira Pavon MD Referring Provider Active Start: January 20, 2025 End: January 20, 2025 Idania Botello NP-C Attending physician Active Start: January 20, 2025 End: January 20, 2025 Team Status: Inactive Member Role/Relationship Status Dates Dr. Shira Pavon MD Primary care physician Active Start: January 26, 2025 End: January 26, 2025 Dr. Shira Pavon MD Referring Provider Active Start: January 26, 2025 End: January 26, 2025 Dr. Clement Lewis MD Attending physician Active Start: January 26, 2025 End: January 26, 2025 Team Status: Inactive Member Role/Relationship Status Dates Dr. Shira Pavon MD Primary care physician Active Start: February 09, 2025 End: February 09, 2025 Dr. Shira Pavon MD Referring Provider Active Start: February 09, 2025 End: February 09, 2025 Billie Quang DOLL SURGEON, DOLL SURGEON-C Attending physician Active Start: February 09, 2025 End: February 09, 2025 Team Status: Active Member Role/Relationship Status Dates Dr. Shira Pavon MD Primary care physician Active Start: February 10, 2025 Dr. Clement Lewis MD Attending physician Active Start: February 10, 2025 Dr. Clement Lewis MD Referring Provider Active S tart: February 10, 2025 Team Status: Inactive Member Role/Relationship Status Dates Dr. Shira Pavon MD Primary care physician Active Start: February 16, 2025 End: February 16, 2025 Dr. Shira Pavon MD Referring Provider Active Start: February 16, 2025 End: February 16, 2025 Billie Quang DOLL SURGEON, DOLL SURGEON-C Attending physician Active Start: February 16, 2025 End: February 16, 2025 Team Status: Active Member Role/Relationship Status Dates Dr. Shira Pavon MD Primary care physician Active Start: February 16, 2025 Dr. Clement Lewis MD Attending physician Active Start: February 16, 2025 Dr. Clement Lewis MD Referring Provider Active S tart: February 16, 2025 Billie Quang DOLL SURGEON, DOLL SURGEON-C Nurse Practitioner Active Start: February 16, 2025 Team Status: Inactive Member Role/Relationship Status Dates Dr. Shira Pavon MD Primary care physician Active Start: November 12, 2024 End: November 12, 2024 Dr. Shira Pavon MD Referring Provider Active Start: November 12, 2024 End: November 12, 2024 Dr. Magdi Strauss DO Attending physician Active Start: November 12, 2024 End: November 12, 2024 Team Status: Inactive Member Role/Relationship Status Dates Dr. Shira Pavon MD Primary care physician Active Start: November 13, 2024 End: November 13, 2024 Dr. Shira Pavon MD Referring Provider Active Start: November 13, 2024 End: November 13, 2024 Billie Del Rio DOLL SURGEON, DOLL SURGEON-C Attending physician Active Start: November 13, 2024 End: November 13, 2024 Team Status: Inactive Member Role/Relationship Status Dates Dr. Shira Pavon MD Primary care physician Active Start: November 20, 2024 End: November 20, 2024 Billie Del Rio DOLL SURGEON, DOLL SURGEON-C Attending physician Active Start: November 20, 2024 End: November 20, 2024 Billie Del Rio DOLL SURGEON, DOLL SURGEON-C Referring Provider Active Start: November 20, 2024 End: November 20, 2024 Team Status: Inactive Member Role/Relationship Status Dates Dr. Shira Pavon MD Primary care physician Active Start: November 26, 2024 End: November 26, 2024 Dr. Magdi Strauss DO Attending physician Active Start: November 26, 2024 End: November 26, 2024 Dr. Magdi Strauss DO Referring Provider Active S tart: November 26, 2024 End: November 26, 2024 Team Status: Inactive Member Role/Relationship Status Dates Dr. Shira Pavon MD Primary care physician Active Start: November 27, 2024 End: November 27, 2024 Dr. Magdi Strauss DO Attending physician Active Start: November 27, 2024 End: November 27, 2024 Dr. Magdi Strauss DO Referring Provider Active S tart: November 27, 2024 End: November 27, 2024 Team Status: Active Member Role/Relationship Status Dates Dr. Shira Pavon MD Primary care physician Active Start: November 28, 2024 Dr. Magdi Strauss DO Attending physician Active Start: November 28, 2024 Dr. Magdi Strauss DO Referring Provider Active S tart: November 28, 2024 Dr. Magdi Strauss DO Nurse Practitioner Active S tart: November 28, 2024 Team Status: Inactive Member Role/Relationship Status Dates Dr. Shira Pavon MD Primary care physician Active Start: December 03, 2024 End: December 03, 2024 Dr. Shira Pavon MD Referring Provider Active Start: December 03, 2024 End: December 03, 2024 Idania Botello NP-C Attending physician Active Start: December 03, 2024 End: December 03, 2024 Team Status: Inactive Member Role/Relationship Status Dates Dr. Shira Pavon MD Primary care physician Active Start: December 04, 2024 End: December 04, 2024 Dr. Shira Pavon MD Referring Provider Active Start: December 04, 2024 End: December 04, 2024 Dr. Clement Lewis MD Attending physician Active Start: December 04, 2024 End: December 04, 2024 Team Status: Inactive Member Role/Relationship Status Dates Dr. Shira Pavon MD Primary care physician Active Start: December 17, 2024 End: December 17, 2024 Dr. Shira Pavon MD Referring Provider Active Start: December 17, 2024 End: December 17, 2024 Dr. Clement Lewis MD Attending physician Active Start: December 17, 2024 End: December 17, 2024 Team Status: Inactive Member Role/Relationship Status Dates Dr. Shira Pavon MD Primary care physician Active Start: December 23, 2024 End: December 23, 2024 Dr. Jose Taylor MD Attending physician Active St art: December 23, 2024 End: December 23, 2024 Dr. Jose Taylor MD Emergency Department Physician Acti ve Start: December 23, 2024 End: December 23, 2024 Team Status: Inactive Member Role/Relationship Status Dates Dr. Shira Pavon MD Primary care physician Active Start: December 23, 2024 End: December 23, 2024 Dr. Shira Pavon MD Referring Provider Active Start: December 23, 2024 End: December 23, 2024 Dr. Gallo Bailey MD Attending physician Active Start: December 23, 2024 End: December 23, 2024 Team Status: Inactive Member Role/Relationship Status Dates Dr. Shira Pavon MD Primary care physician Active Start: December 31, 2024 End: December 31, 2024 Dr. Shira Pavon MD Referring Provider Active Start: December 31, 2024 End: December 31, 2024 Dr. Demetra Sotelo MD Attending physician Active Start: December 31, 2024 End: December 31, 2024 Team Status: Inactive Member Role/Relationship Status Dates Dr. Shira Pavon MD Primary care physician Active Start: January 14, 2025 End: January 14, 2025 Dr. Shira Pavon MD Referring Provider Active Start: January 14, 2025 End: January 14, 2025 Billie Del Rio NP, DOLL SURGEON-C Attending physician Active Start: January 14, 2025 End: January 14, 2025 Team Status: Inactive Member Role/Relationship Status Dates Dr. Shira Pavon MD Primary care physician Active Start: January 20, 2025 End: January 20, 2025 Dr. Shira Pavon MD Referring Provider Active Start: January 20, 2025 End: January 20, 2025 Idania Botello NP-C Attending physician Active Start: January 20, 2025 End: January 20, 2025 Team Status: Inactive Member Role/Relationship Status Dates Dr. Shira Pavon MD Primary care physician Active Start: January 26, 2025 End: January 26, 2025 Dr. Shira Pavon MD Referring Provider Active Start: January 26, 2025 End: January 26, 2025 Dr. Clement Lewis MD Attending physician Active Start: January 26, 2025 End: January 26, 2025 Team Status: Inactive Member Role/Relationship Status Dates Dr. Shira Pavon MD Primary care physician Active Start: February 09, 2025 End: February 09, 2025 Dr. Shira Pavon MD Referring Provider Active Start: February 09, 2025 End: February 09, 2025 Billie Del Rio NP, DOLL SURGEON-C Attending physician Active Start: February 09, 2025 End: February 09, 2025 Team Status: Inactive Member Role/Relationship Status Dates Dr. Shira Pavon MD Primary care physician Active Start: February 16, 2025 End: February 16, 2025 Dr. Shira Pavon MD Referring Provider Active Start: February 16, 2025 End: February 16, 2025 Billie Del Rio NP, DOLL SURGEON-C Attending physician Active Start: February 16, 2025 End: February 16, 2025 Team Status: Inactive Member Role/Relationship Status Dates Dr. Shira Pavon MD Primary care physician Active Start: February 24, 2025 End: February 24, 2025 Dr. Shira Pavon MD Referring Provider Active Start: February 24, 2025 End: February 24, 2025 Dr. Clement Lewis MD Attending physician Active Start: February 24, 2025 End: February 24, 2025 Team Status: Inactive Member Role/Relationship Status Dates Dr. Shira Pavon MD Primary care physician Active Start: March 09, 2025 End: March 09, 2025 Dr. Shira Pavon MD Referring Provider Active Start: March 09, 2025 End: March 09, 2025 Dr. Clement Lewis MD Attending physician Active Start: March 09, 2025 End: March 09, 2025 Team Status: Active Member Role/Relationship Status Dates Dr. Shira Pavon MD Primary care physician Active Start: March 09, 2025 Dr. Clement Lewis MD Attending physician Active Start: March 09, 2025 Dr. Clement Lewis MD Referring Provider Active S tart: March 09, 2025 Billie Del Rio DOLL SURGEON, DOLL SURGEON-C Nurse Practitioner Active Start: March 09, 2025 [employer] Relationship Specialty Start Date End Date Shira Pavon MD PCP - General 05/22/19 FOR RECORDS PERTAINING TO PATIENTS WHO ARE OR HAVE BEEN ENROLLED IN A CHEMICAL DEPENDENCY/SUBSTANCEABUSE PROGRAM, SOME INFORMATION MAY BE OMITTED. This clinical summary was aggregated from multiple sources. Caution should be exercised in using it in the provision of clinical care. This summary normalizes information from multiple sources, and as a consequence, information in this document may materially change the coding, format and clinical context of patient data. In addition, data may be omitted in some cases. CLINICAL DECISIONS SHOULD BE BASED ON THE PRIMARY CLINICAL RECORDS. [facility] [employer] provides no warranty or guarantee of the accuracy or completeness of information in this document.
[2025-03-31] MEDS: Vancomycin HCl 1,500 MG in 0.9% Normal Saline (500mL Bag) 500 ML 250 MG IV (23:21)
[2025-04-01] VITALS (9 sets, daily range): BP systolic 95–131; BP diastolic 63–82; PULSE 63–91; RESP 16–18; TEMP 36.4–37.2; O2SAT 93–100; BMI 20.8; BMI 20.5
[2025-04-01] MEDS: Piperacil/Tazobactam 3.375 GM in 0.9% Normal Saline (50mL MB+) 50 ML IV ×4 (02:05→21:46)
--- NOTE | 2025-04-01 03:07 | PCM.RX.CS ---
Consult Antibiotic Management Pharmacy has been consulted to manage selected antibiotic: Vancomycin Type of Intervention Type of Consult: New start Labs Labs: Sodium 137 mmol/L (133-145) 03/31/25 17:41 Potassium 3.9 mmol/L (3.3-5.1) 03/31/25 17:41 Chloride 104 mmol/L (98-108) 03/31/25 17:41 Carbon Dioxide 22.2 mmol/L (21.0-32.0) 03/31/25 17:41 Anion Gap 11 (5-15) 03/31/25 17:41 BUN 16 mg/dL (4-19) 03/31/25 17:41 Creatinine 1.06 mg/dL (0.70-1.20) 03/31/25 17:41 Est GFR (MDRD) Non-Af 72 (>60) 03/31/25 17:41 BUN/Creatinine Ratio 15.2 RATIO (10-20) 03/31/25 17:41 Glucose 126 mg/dL (70-99) H 03/31/25 17:41 Microbiology Microbiology: Microbiology 03/31/25 17:41 Mucosa - Nose SARS-CoV-2, Influenza & RSV (PCR) - Final Dosing Weight Weight used for dosin.6 kg Estimated Creatinine Clearance Estimated Creatinine Clearance: 56.46 Goal Trough Goal Trough: 15-20 mcg/mL Pharmacy Plan for Drug Dosing Pharmacy Plan for Drug Dosing: Pharmacy Service will continue to monitor and adjust dosing as required. LOADING DOSE 1500MG 03/31 @ 3228. START 50MG Q12H AND DRAW TROUGH PRIOR TO 4TH DOSE Follow-Up Labs Follow-Up Labs: Trough: Vancomycin Date/Time Labs Ordered Labs to be done on [date and time ordered]: 04/02 @ 1130
[2025-04-01 06:42] LABS: Hematocrit 34.1 % (40-54); Hemoglobin 10.6 g/dL (13.0-16.5); Immature Granulocytes Count 0.070 X10^3/uL (0.0-0.0); Mean Corp Hgb Conc 31.1 g/dL (32-36); Mean Corpuscular Volume 82.0 fL (80-94); Mean Platelet Vol. 10.0 fl (6.2-12.0); NRBC Flagged by Analyzer 0 % (0-5); Platelet Count 162 K/mm3 (150-450); RBC Distribution Width CV 14.2 % (11.6-14.6); RBC Distribution Width SD 42.2 fl (35.1-43.9); Red Blood Count 4.16 M/mm3 (4.6-6.2); White Blood Count 7.3 K/mm3 (4.4-11.0)
[2025-04-01] MEDS: Budesonide Respules 0.5 MG/2 ML AMPUL.NEB. INHALATION ×2 (07:00→19:59)
[2025-04-01 07:08] LABS: AST(SGOT) 15 U/L (<=37); Alanine Aminotransfer ALT/SGPT 8 U/L (<=46); Albumin, Serum 3.2 g/dL (3.4-4.8); Alkaline Phosphatase 44 U/L (40-129); Anion Gap 7 (5-15); BUN 16 mg/dL (4-19); BUN/Creat Ratio 14.0 RATIO (10-20); Calcium,Total 8.8 mg/dL (7.6-11.0); Carbon Dioxide 22.7 mmol/L (21.0-32.0); Chloride 109 mmol/L (98-108); Estimated Creatinine Clearance 47.86 ml/min (50-250); Globulin 2.2 g/dL (2.2-4.2); Glucose 93 mg/dL (70-99); Magnesium 2.0 mg/dL (1.5-2.2); Potassium 4.1 mmol/L (3.3-5.1)
[2025-04-01] MEDS: Ensure Plus High Protein 120 ML LIQUID PO (10:20)
--- NOTE | 2025-04-01 10:20 | ECHOD_ITS ---
Reason For Study Reason For Study: ENDOCARDITIS Procedure This was a 2D Doppler, Color Flow transthoracic echocardiogram. The study was technically difficult. Due to slim body habitus. Exam performed portable in patient room. Left Ventricle Normal LV size. Left ventricular systolic function is normal. The left ventricular ejection fraction is 65 %. Stage 1 diastolic dysfunction. No regional wall motion abnormalities noted. Right Ventricle Normal RV size. Normal systolic function. Atria Normal left atrium. Normal right atrium. Mitral Valve Bioprosthetic mitral valve. Tricuspid Valve Mild (1+) tricuspid valve insufficiency. Bioprosthetic tricuspid valve. Aortic Valve Peak aortic valve gradient 26 mmHg. Mean aortic valve gradient 12 mmHg. Bioprosthetic aortic valve. Great Vessels Normal sized aortic root. The pulmonary artery is normal size. Inferior vena cava collapse with respiration. Pericardium/Pleural No pericardial effusion. MMode/2D Measurements & Calculations LVIDd: 4.2 cm IVSd: 0.80 cm LVOT diam: 2.0 cm LVIDs: 3.0 cm LVPWd: 0.88 cm LVOT area: 3.0 cm2 RVDd: 3.8 cm FS: 29.3 % Ao root diam: 4.0 cm LVAd ap4: 34.5 cm2 LVAd ap2: 32.3 cm2 LVLd ap4: 8.6 cm LVLd ap2: 8.9 cm EDV(MOD-sp4): 112.6 ml EDV(MOD-sp2): 96.9 ml EDV(sp4-el): 117.5 ml EDV(sp2-el): 100.2 ml LVAs ap4: 19.7 cm2 LVAs ap2: 16.8 cm2 LVLs ap4: 8.0 cm LVLs ap2: 7.1 cm ESV(MOD-sp4): 41.6 ml ESV(MOD-sp2): 31.4 ml ESV(sp4-el): 41.3 ml ESV(sp2-el): 33.8 ml EF(MOD-sp4): 63.0 % EF(MOD-sp2): 67.6 % EF(sp4-el): 64.8 % SV(MOD-sp4): 70.9 ml SV(MOD-sp2): 65.5 ml SV(sp4-el): 76.1 ml SI(MOD-sp4): 39.8 ml/m2 SI(MOD-sp2): 36.8 ml/m2 LA dimension(2D): 4.6 cm TAPSE: 1.8 cm Time Measurements MV dec time: 0.28 sec Doppler Measurements & Calculations MV E max lorne: 154.6 cm/sec Lat Peak E' Lorne: 17.3 cm/sec Med Peak E' Lorne: 10.0 cm/sec MV A max lorne: 178.2 cm/sec E/E' lat: 8.9 E/E' med: 15.5 MV E/A: 0.87 MV V2 max: 214.1 cm/sec MV P1/2t max lorne: 172.0 cm/sec Ao V2 max: 255.1 cm/sec MV max P.3 mmHg MV P1/2t: 83.4 msec Ao max P.0 mmHg MV V2 mean: 130.5 cm/sec MV dec slope: 604.2 cm/sec2 Ao V2 mean: 156.5 cm/sec MV mean P.6 mmHg Ao mean P.7 mmHg MV V2 VTI: 59.8 cm MVA(P1/2t): 2.6 cm2 Ao V2 VTI: 42.8 cm MVA(VTI): 1.0 cm2 AV (velocity ratio): 0.47 RAMON(I,D): 1.4 cm2 RAMON(V,D): 1.4 cm2 LV V1 max: 121.1 cm/sec MR max lorne: 534.7 cm/sec SV(LVOT): 59.9 ml LV V1 max P.9 mmHg MR max P.5 mmHg LV V1 mean P.7 mmHg MR mean lorne: 441.1 cm/sec LV V1 mean: 77.7 cm/sec MR mean P.3 mmHg LV V1 VTI: 19.9 cm MR VTI: 120.8 cm TV V2 max: 168.2 cm/sec PA V2 max: 103.1 cm/sec TV max P.3 mmHg TV V2 mean: 82.0 cm/sec TV mean P.3 mmHg ECHO/Echo Complete Interpretation Summary Normal LV size. Left ventricular systolic function is normal. The left ventricular ejection fraction is 65 %. Stage 1 diastolic dysfunction. Mild (1+) tricuspid valve insufficiency. Bioprosthetic mitral valve. Bioprosthetic tricuspid valve. Bioprosthetic aortic valve. Ordering Physician: Narinder Velasquez Referring Physician: Shira Lopez Performed By: Rosy Travis, SUZANNE, RVT
[2025-04-01] MEDS: Vancomycin HCl 500 MG in 0.9% Normal Saline (100mL Bag) 100 ML 100 MG IV ×2 (12:34→23:52)
--- NOTE | 2025-04-01 13:40 | PCM.CONS.GEN ---
Assessment & Plan Assessment/Plan (1) Intermittent FUO: PLAN: Reviewed [place] records. H/o endocarditis with valve replacement 2018, but unable to see records back that far. TTE planned. Bcx here pending. No focal symptoms. No fever for 6 weeks until past few days. Recent imaging with lung masses, biopsy planned; new cancer could be a potential explanation. No port in place. Will check respiratory pcr panel and cmv/ebv testing. On empiric vanc/zosyn while bcx and echo pending. Not clear that these intermittent fevers and admit in 07/2024 with septic shock/pneumonia are all related to the same process. 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 He was on po amox for about 2.5 years after that diagnosis. Reports intermittent fever for past few years. Admitted to [place] 07/2024 with septic shock, treated for pneumonia. Started on chemo for CLL, would have fever with each cycle that would resolve by the last week of the treatment. No port in place. Did fine for 6 weeks with no fever until this past weekend 03/28-03/30 with fever up to 103+. No focal symptoms. No sick contacts. No recent travel. No night sweats. Does have new lung masses seen recently with biopsy planned. Admitted here on vanc/zosyn. Full ROS performed and neg except as noted above. Chronic cough with copd, unchanged. 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 200 mcg-umeclid 1 inh inhalation Q24H #3 ea 12/09/24 03/31/25 Rx 62.5 mcg-vilant 25 mcg inhalat.powder (Trelegy Ellipta) atorvastatin 20 mg tablet (Lipitor) 20 mg PO .qd 01/14/25 03/31/25 History guaifenesin 600 mg tablet, 600 mg PO BID 03/31/25 03/31/25 History extended release 12 hr (Mucus Relief ER) Allergy/AdvReac Type Severity Reaction Status Date / Time Sulfa (Sulfonamide Allergy Swelling Verified 03/31/25 17:11 Antibiotics) Family History Brother Cancer Mother Heart disease Family History no significant family his Surgical History History of parotid gland removal Hx of transurethral resection of prostate (12/01/20) Status post incision and drainage Status post heart valve replacement Surgical History unable to obtain Social History household members: none housing: house current occupational status: retired Smoking Status: Former smoker alcohol intake: never substance use type: does not use Physical Exam Const alert, oriented x3 and no apparent distress General Appearance: cooperative HEENT normocephalic and head/scalp atraumatic Eyes PERRL and EOMs intact bilaterally Neck supple and No nodes Resp normal air movement and clear to auscultation bilaterally Cardio regular rate, regular rhythm and no murmurs GI soft to palpation, non-tender and non-distended Extremity General Extremity: Negative for edema Skin no rashes or lesions noted Skin Narrative: no splinter hemorrhages on hands or feet Neuro CN's II-XII intact bilaterally Lab / Micro Data Attestation: I reviewed the patient's lab results. 04/01/25 06:14 04/01/25 06:14 Labs: Laboratory Results - last 24 hr 03/31/25 17:41: WBC 6.7, RBC 4.73, Hgb 12.0 L, Hct 38.1 L, MCV 80.5, MCH 25.4 L, MCHC 31.5 L, RDW Std Deviation 41.4, RDW Coeff of Antonio 14.0, Plt Count 173, MPV 9.8, Immature Gran % (Auto) 1.200 H, Neut % (Auto) 70.6 H, Lymph % (Auto) 16.9 L, [place] % (Auto) 9.1, Eos % (Auto) 1.6, Baso % (Auto) 0.6, Absolute Neuts (auto) 4.7, Absolute Lymphs (auto) 1.13, Nucleated RBC % 0, ESR 11, PT 13.2, INR 1.0, APTT 27.8, Sodium 137, Potassium 3.9, Chloride 104, Carbon Dioxide 22.2, Anion Gap 11, BUN 16, Creatinine 1.06, Estim Creat Clear Calc 56.46, Est GFR (MDRD) Non-Af 72, BUN/Creatinine Ratio 15.2, Glucose 126 H, Lactic Acid < 1.0, Calcium 9.2, Total Bilirubin 0.83, AST 20, ALT 11, Alkaline Phosphatase 56, Troponin T High Sens 18, C-React Prot Ext Range 36.00 H, Total Protein 6.5, Albumin 3.9, Globulin 2.6, Albumin/Globulin Ratio 1.5, Procalcitonin 1.07 H 03/31/25 19:03: Urine Color Yellow, Urine Clarity Clear, Urine pH 6.0, Ur Specific [place] 1.015, Urine Protein 30 H, Urine Glucose (UA) Normal, Urine Ketones 5 H, Urine Occult Blood Negative, Urine Nitrite Negative, Urine Bilirubin Negative, Urine Urobilinogen Normal, Ur Leukocyte Esterase Negative, Urine RBC 0 SEEN, Urine WBC 0-5 SEEN, Ur Squamous Epith Cells 0-5 SEEN, Urine Bacteria 0 SEEN, Urine Mucus 0 SEEN 04/01/25 06:14: WBC 7.3, RBC 4.16 L, Hgb 10.6 L, Hct 34.1 L, MCV 82.0, MCH 25.5 L, MCHC 31.1 L, RDW Std Deviation 42.2, RDW Coeff of Antonio 14.2, Plt Count 162, MPV 10.0, Immature Gran % (Auto) 1.000 H, Neut % (Auto) 59.2, Lymph % (Auto) 23.0, [place] % (Auto) 12.0 H, Eos % (Auto) 3.8, Baso % (Auto) 1.0, Absolute Neuts (auto) 4.3, Absolute Lymphs (auto) 1.68, Nucleated RBC % 0, Sodium 139, Potassium 4.1, Chloride 109 H, Carbon Dioxide 22.7, Anion Gap 7, BUN 16, Creatinine 1.17, Estim Creat Clear Calc 47.86 L, Est GFR (MDRD) Non-Af 64, BUN/Creatinine Ratio 14.0, Glucose 93, Calcium 8.8, Phosphorus 2.9, Magnesium 2.0, Total Bilirubin 1.15, AST 15, ALT 8, Alkaline Phosphatase 44, Total Protein 5.4 L, Albumin 3.2 L, Globulin 2.2, Albumin/Globulin Ratio 1.4 Micro: Microbiology 03/31/25 17:41 Mucosa - Nose SARS-CoV-2, Influenza & RSV (PCR) - Final Imaging Radiology Impression Chest X-Ray 03/31/25 17:56 IMPRESSION: No appreciable airspace consolidation or pleural effusion. Emphysema. Reading Location: [id number]
--- NOTE | 2025-04-01 14:42 | CASEMGMT ---
BROOKS Met with patient to complete BROOKS form. BROOKS form and its content were verbally explained and patient's questions were answered to the best of my ability.? Patient voiced understanding and signed BROOKS form.? Patient provided a copy of signed BROOKS form and original placed in patient's chart.? Patient had no further questions. Yamel Ortiz, Discharge Planning Asst
--- NOTE | 2025-04-01 19:12 | PCM.PN.HOSP ---
Reason for Visit Chief Complaint: Intermittent fevers Subjective Subjective Patient was seen and examined today, I ordered a complete echocardiogram on the patient today, there is no evidence of any endocarditis on the patient's echocardiogram. I talked briefly with infectious diseases today. Objective Data Objective Data Vital Signs: Vital Signs Temp Pulse Resp BP Pulse Ox O2 Del Method 97.9 F 81 18 125/73 H 100 Room Air 04/01/25 15:17 04/01/25 15:17 04/01/25 15:17 04/01/25 15:17 04/01/25 15:17 04/01/25 15:17 Oxygen Delivery Method Room Air Weight: 64 kg Body Mass Index (BMI) 20.8 Intake & Output: Intake and Output for Last 24 Hours 03/30/25 03/31/25 04/01/25 23:59 23:59 23:59 Intake Total 1000 / 1500 1540 / 1540 Balance 1000 / 1500 1540 / 1540 Medical Nutrition Assessment Dietitian: Malnutrition Criteria Met Start: 04/01/25 14:59 Freq: Status: Active Protocol: Document 04/01/25 14:59 RMA (Rec: 04/01/25 14:59 RMA [id number]) Nutrition Malnutrition Evidence of Yes Malnutrition Exists Malnutrition ( Chronic moderate): Evidenced By Suboptimal Energy Intake (Moderate),Weight Loss ( Moderate) Clinical Problem Chronic Disease or Condition Related Malnutrition Etiology Moderate protein-calorie malnutrition in the context of chronic disease related to increased energy expenditure and/or inadequate energy intake Signs/Symptoms as evidenced by ~7-9% unintentional weight loss x past 6-12 months, BMI 20.8 and PO meeting less than 75% estimated nutrition needs x past 6 months. Status Active Problem Unintended Weight Loss Etiology related to possible increased energy expenditure and/or inadequate calorie intake Signs/Symptoms as evidenced by ~7-9% unintentional weight loss x past 6-12 months Status Active Problem Recommendation Dietitian Will continue regular diet as ordered and encourage Recommendations/ continued good PO at meals as tolerated. Changes Will d/c ensure plus HP w/ medpass. Will add 240mL chocolate ensure plus HP BID with breakfast and lunch tray. Trend weights and offer additional ONS as needed. Lab / Micro Data 04/01/25 06:14 04/01/25 06:14 Labs: Laboratory Results - last 24 hr 03/31/25 17:41: ESR 11, C-React Prot Ext Range 36.00 H, Procalcitonin 1.07 H 03/31/25 19:02: Miscellaneous Test Cancelled 03/31/25 19:03: Urine Color Yellow, Urine Clarity Clear, Urine pH 6.0, Ur Specific [place] 1.015, Urine Protein 30 H, Urine Glucose (UA) Normal, Urine Ketones 5 H, Urine Occult Blood Negative, Urine Nitrite Negative, Urine Bilirubin Negative, Urine Urobilinogen Normal, Ur Leukocyte Esterase Negative, Urine RBC 0 SEEN, Urine WBC 0-5 SEEN, Ur Squamous Epith Cells 0-5 SEEN, Urine Bacteria 0 SEEN, Urine Mucus 0 SEEN 04/01/25 06:14: WBC 7.3, RBC 4.16 L, Hgb 10.6 L, Hct 34.1 L, MCV 82.0, MCH 25.5 L, MCHC 31.1 L, RDW Std Deviation 42.2, RDW Coeff of [place] 14.2, Plt Count 162, MPV 10.0, Immature Gran % (Auto) 1.000 H, Neut % (Auto) 59.2, Lymph % (Auto) 23.0, [place] % (Auto) 12.0 H, Eos % (Auto) 3.8, Baso % (Auto) 1.0, Absolute Neuts (auto) 4.3, Absolute Lymphs (auto) 1.68, Nucleated RBC % 0, Sodium 139, Potassium 4.1, Chloride 109 H, Carbon Dioxide 22.7, Anion Gap 7, BUN 16, Creatinine 1.17, Estim Creat Clear Calc 47.86 L, Est GFR (MDRD) Non-Af 64, BUN/Creatinine Ratio 14.0, Glucose 93, Calcium 8.8, Phosphorus 2.9, Magnesium 2.0, Total Bilirubin 1.15, AST 15, ALT 8, Alkaline Phosphatase 44, Total Protein 5.4 L, Albumin 3.2 L, Globulin 2.2, Albumin/Globulin Ratio 1.4 Micro: Microbiology 04/01/25 14:25 Mucosa - Nasopharyngeal Respiratory Panel (PCR) - Final 03/31/25 17:41 Mucosa - Nose SARS-CoV-2, Influenza & RSV (PCR) - Final Radiography Diagnostic Testing: Radiology Impression Echocardiogram 04/01/25 10:20 Interpretation Summary Normal LV size. Left ventricular systolic function is normal. The left ventricular ejection fraction is 65 %. Stage 1 diastolic dysfunction. Mild (1+) tricuspid valve insufficiency. Bioprosthetic mitral valve. Bioprosthetic tricuspid valve. Bioprosthetic aortic valve. Ordering Physician: Narinder Velasquez Referring Physician: Shira Lopez Performed By: Rosy Travis, RDCS, RVT Physical Exam Const alert, oriented x3, no apparent distress, average body habitus and healthy appearing General Appearance: cooperative, well kempt and well developed Orientation / Consciousness: awake, oriented to person, oriented to place and oriented to time HEENT normocephalic, head/scalp atraumatic and moist oral mucous membranes Eyes PERRL, EOMs intact bilaterally and conjunctivae normal Neck supple, no JVD, thyroid normal and no carotid bruits General: trachea midline Resp normal respiratory effort, no retractions, no use of accessory muscles and clear to auscultation bilaterally Auscultation: Negative for rales, rhonchi or wheezes Cardio regular rate, regular rhythm, S1 normal heart sound, S2 normal heart sound, no murmurs, no rub and no gallops GI normal to inspection, nondistended, normoactive bowel sounds, soft to palpation, non-tender and non-distended Extremity no clubbing, cyanosis or edema Skin no rashes or lesions noted General Skin Exam: no breakdown Neuro oriented x3, CN's II-XII intact bilaterally, no focal motor deficits and no sensory deficits noted Sensorium / Orientation: awake and alert Speech: speech normal Psych affect normal Assessment & Plan Assessment/Plan (1) Intermittent FUO: PLAN: Plan 1. Fever of unknown origin and patient with a history of CLL and endocarditis-patient's echocardiogram did not show evidence of endocarditis today, infectious diseases is seeing the patient and has the patient on antibiotics for now, blood cultures are pending #2 CLL-patient is in remission at this time, he will not receive any further immune therapy or chemotherapy. #3 possible metastatic lung cancer-patient had a PET scan performed in February of this year which showed 3 areas of bilateral pulmonary parenchymal uptake concerning for neoplastic process, there was also numerous areas of increased skeletal activity most apparent in the bilateral pelvis and spine concerning for tumor involvement. Finally there was a small focus of increased uptake in the soft tissues posterior to the right ear concerning for neoplastic process and tiny small subcarinal focus of increased uptake possibly representing malignant adenopathy. 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 Patient is scheduled to undergo ENB EBUS for left sided nodules and subcarinal node from the PET scan. #4 coronary artery disease-this appears stable at this time #5 valvular heart disease-echocardiogram shows normal functioning of the bioprosthetic valves #6 chronic obstructive pulmonary disease-this appears stable at this time Total clinical time spent by myself addressing the patient's medical issues, reviewing all of his data, and collaborating with patient's care team: 35 minutes Charges/Coding Visit Charges Inpatient E&M: 57035 Subs Hosp L2
[2025-04-01] MEDS: 0.9% Saline Lock 10 ML Syringe IV ×2 (21:47→23:42)
[2025-04-02 02:26] VITALS: BP 123/61; PULSE 88; RESP 18; TEMP 36.8; O2SAT 95
[2025-04-02] MEDS: Piperacil/Tazobactam 3.375 GM in 0.9% Normal Saline (50mL MB+) 50 ML IV (05:55)
[2025-04-02] MEDS: Budesonide Respules 0.5 MG/2 ML AMPUL.NEB. INHALATION (07:13)
[2025-04-02 07:14] VITALS: PULSE 91; RESP 16; O2SAT 95
[2025-04-02 08:09] LABS: Immunoglobulin G 610 mg/dL (603-1613)
--- NOTE | 2025-04-02 10:30 | CASEMGMT ---
Patient has order for discharge. RN CM in to discuss needs at discharge. Patient is independent in the room. Patient denies needs or help at discharge. Patient had no further questions or concerns.
--- NOTE | 2025-04-02 10:31 | DCINST_ITS ---
Discharge Instructions DC O2, CPAP, BIPAP needs Home O2 Discharge instructions: No Dressing / Incision Discharge Activity: Return to Normal Activity Weight Bearing Status: Full weight bearing Follow Up Care Test Results: Test results from this visit will be discussed in further detail at your follow- up appointment, if applicable. Discharge Plan Admission Admit Date/Time: 03/31/25 20:38 Primary Reason for Your Visit: Fever of unknown origin Attending Provider: Narinder Velasquez Primary Care Provider: Shira Lopez Consulting Providers: Edgar Dye; Lanette Hoff Discharge Orders/Prescriptions Prescriptions: Continued famotidine 20 mg tablet 20 mg PO QDAY atorvastatin [Lipitor] 20 mg tablet 20 mg PO .qd Patient Comments: takes in AM guaifenesin [Mucus Relief ER] 600 mg tablet extended release 12hr 600 mg PO BID Probiotic Acidophilus 250 million cell capsule 500 mmu cells PO DAILY albuterol sulfate [ProAir HFA] 90 mcg/actuation HFA aerosol inhaler 2 puff inhalation Q4-6H PRN (Reason: shortness of breath or wheezing) Qty: 8.5 3RF Trelegy Ellipta 200-62.5-25 mcg blister with device 1 inh inhalation Q24H Qty: 3 3RF Referrals / Follow Up: Clement Lewis MD [Med Staff - Active Staff, Oncology] - See Referral Note Referral Note: as scheduled Shira Lopez MD [Primary Care Provider, Internal Medicine] Disposition Disposition (needs filled in before D/C Order can be placed): Home, Self Care
--- NOTE | 2025-04-02 10:34 | DS.PCM_ITS ---
Providers Date of Admission: 03/31/25 Date of Discharge: 04/02/25 Primary Care Physician: Dr. Shira Lopez MD Consultations 03/31/25 22:20 Consult: Infectious Disease Routine Consulting Provider: Edgar Dye Reason for Consult: FUO EMERGENT Consult: No MD Notified: Yes Date Notified: 03/31/25 Time Notified: 23:55 Method of Notification: Answering Service Reason For Visit: FUO Diagnosis Discharge Diagnosis (1) Intermittent FUO: Status: Acute Code(s): R50.9 - Fever, unspecified Plan 1. Fever of unknown origin and patient with a history of CLL and endocarditis- patient's echocardiogram did not show evidence of endocarditis today, infectious diseases is seeing the patient and has the patient on antibiotics for now, blood cultures are pending #2 CLL-patient is in remission at this time, he will not receive any further immune therapy or chemotherapy. #3 possible metastatic lung cancer-patient had a PET scan performed in February of this year which showed 3 areas of bilateral pulmonary parenchymal uptake concerning for neoplastic process, there was also numerous areas of increased skeletal activity most apparent in the bilateral pelvis and spine concerning for tumor involvement. Finally there was a small focus of increased uptake in the soft tissues posterior to the right ear concerning for neoplastic process and tiny small subcarinal focus of increased uptake possibly representing malignant adenopathy. 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 Patient is scheduled to undergo ENB EBUS for left sided nodules and subcarinal node from the PET scan. #4 coronary artery disease-this appears stable at this time #5 valvular heart disease-echocardiogram shows normal functioning of the bioprosthetic valves #6 chronic obstructive pulmonary disease-this appears stable at this time Total clinical time spent by myself addressing the patient's medical issues, reviewing all of his data, and collaborating with patient's care team: 35 minutes Medications at Discharge Home Medications famotidine 20 mg tablet 20 mg PO QDAY reflux 03/19/24 albuterol sulfate 90 mcg/actuation aerosol inhaler (ProAir HFA) 2 puff inhalation Q4-6H PRN shortness of breath or wheezing #8.5 grams 12/05/24 fluticasone fur. 200 mcg-umeclid 62.5 mcg-vilant 25 mcg inhalat.powder (Trelegy Ellipta) 1 inh inhalation Q24H breathing #3 ea 12/09/24 atorvastatin 20 mg tablet (Lipitor) 20 mg PO .qd cholesterol 01/14/25 guaifenesin 600 mg tablet, extended release 12 hr (Mucus Relief ER) 600 mg PO BID cough 03/31/25 Lactobacillus acidophilus 250 million cell capsule (Probiotic Acidophilus) 500 mmu cells PO DAILY supplement 04/02/25 Hospital Course Operations None Procedures 2-D Echocardiogram Summary of Care Provided Minutes Spent on Discharge: 31 Hospital Course: This 79-year-old white male was seen in the emergency room at [facility] after being directed to go to the emergency room for evaluation of intermittent fevers over the last several months. Patient has a history of chronic lymphocytic leukemia which is in remission. Labs obtained in the emergency room included a CBC which was abnormal for hemoglobin of 12, chemistry profile was unremarkable. Chest x-ray did not show any evidence of pneumonia and his urinalysis was unremarkable. Patient was placed in observation status on PCU and seen in consultation by infectious diseases, echocardiogram was obtained which showed no evidence of endocarditis, patient was placed on antibiotics during his hospitalization but his cultures ultimately resulted as being negative. On 04/02/2025, patient was seen and examined: On examination he appeared in good health and spirits. Vital signs as documented. Skin warm and dry and without overt rashes. Neck without JVD, neck was supple, trachea midline, thyroid was normal. Lungs clear bilaterally, normal air movement was noted. Heart exam notable for regular rhythm, normal sounds and absence of murmurs, rubs or gallops. Abdomen unremarkable and without evidence of organomegaly, masses, or abdominal aortic enlargement. Bowel sounds are present, abdomen is not distended. Extremities nonedematous, no cyanosis was noted, no clubbing was noted. Neuro: Cranial nerves II through XII are grossly intact, no focal motor deficits were noted, sensation to light touch and pinprick intact, motor exam 5/5 throughout. Psych: Patient is alert and oriented x3, he does not appear anxious or depressed, he does not appear agitated. Patient was discharged home in stable condition on 04/02/2025 Medical Records Data Medical Nutrition Assessment Dietitian: Malnutrition Criteria Met Start: 04/01/25 14:59 Freq: Status: Active Protocol: Document 11/19/25 14:59 RMA (Rec: 04/01/25 14:59 RMA [id number]) Nutrition Malnutrition Evidence of Yes Malnutrition Exists Malnutrition ( Chronic moderate): Evidenced By Suboptimal Energy Intake (Moderate),Weight Loss ( Moderate) Clinical Problem Chronic Disease or Condition Related Malnutrition Etiology Moderate protein-calorie malnutrition in the context of chronic disease related to increased energy expenditure and/or inadequate energy intake Signs/Symptoms as evidenced by ~7-9% unintentional weight loss x past 6-12 months, BMI 20.8 and PO meeting less than 75% estimated nutrition needs x past 6 months. Status Active Problem Unintended Weight Loss Etiology related to possible increased energy expenditure and/or inadequate calorie intake Signs/Symptoms as evidenced by ~7-9% unintentional weight loss x past 6-12 months Status Active Problem Recommendation Dietitian Will continue regular diet as ordered and encourage Recommendations/ continued good PO at meals as tolerated. Changes Will d/c ensure plus HP w/ medpass. Will add 240mL chocolate ensure plus HP BID with breakfast and lunch tray. Trend weights and offer additional ONS as needed. Weight / BMI Weight Weight: 63 kg Body Mass Index (BMI) 20.5 ABG / Lab / Microbiology Data 04/01/25 06:14 04/01/25 06:14 Laboratory: Laboratory Results - last 24 hr 03/31/25 19:02: Miscellaneous Test Cancelled 04/01/25 06:14: IgG 610 Microbiology: Microbiology 03/31/25 19:02 Urine, Clean Catch Urine Culture - Final Culture exhibits no growth. 03/31/25 20:00 Blood Culture (Wb) #2 - Anticubital Right Blood Culture - Preliminary No growth in 48 hours. 03/31/25 17:41 Blood Culture (Wb) - Anticubital Right Blood Culture - Preliminary No growth in 48 hours. 04/01/25 14:25 Mucosa - Nasopharyngeal Respiratory Panel (PCR) - Final 03/31/25 17:41 Mucosa - Nose SARS-CoV-2, Influenza & RSV (PCR) - Final Radiography Diagnostic Testing: Radiology Impression Echocardiogram 04/01/25 10:20 Interpretation Summary Normal LV size. Left ventricular systolic function is normal. The left ventricular ejection fraction is 65 %. Stage 1 diastolic dysfunction. Mild (1+) tricuspid valve insufficiency. Bioprosthetic mitral valve. Bioprosthetic tricuspid valve. Bioprosthetic aortic valve. Ordering Physician: Narinder Velasquez Referring Physician: Shira Lopez Performed By: Rosy Travis RDCS, RVT D/C Instructions Weight Bearing Status: Full weight bearing DC O2, CPAP, BIPAP Needs Home O2 Discharge instructions: No Meaningful Use Info Meaningful Use Meaningful Use Diagnoses (Choose all that apply): None applicable Discharge Plan Admission Admit Date/Time: 03/31/25 20:38 Primary Reason for Your Visit: Fever of unknown origin Attending Provider: Narinder Velasquez Primary Care Provider: Shira Lopez Consulting Providers: Edgar Dye; Lanette Hoff Discharge Orders/Prescriptions Prescriptions: Continued famotidine 20 mg tablet 20 mg PO QDAY atorvastatin [Lipitor] 20 mg tablet 20 mg PO .qd Patient Comments: takes in AM guaifenesin [Mucus Relief ER] 600 mg tablet extended release 12hr 600 mg PO BID Probiotic Acidophilus 250 million cell capsule 500 mmu cells PO DAILY albuterol sulfate [ProAir HFA] 90 mcg/actuation HFA aerosol inhaler 2 puff inhalation Q4-6H PRN (Reason: shortness of breath or wheezing) Qty: 8.5 3RF Trelegy Ellipta 200-62.5-25 mcg blister with device 1 inh inhalation Q24H Qty: 3 3RF Referrals / Follow Up: Clement Lewis MD [Med Staff - Active Staff, Oncology] - 04/20/25 10:00 am Referral Note: as scheduled Shira Lopez MD [Primary Care Provider, Internal Medicine] Disposition Disposition (needs filled in before D/C Order can be placed): Home, Self Care Charges/Coding Visit Charges Inpatient E&M: 62218 Disch Hosp >30min
--- NOTE | 2025-04-02 10:49 | PHA.DC.MR.R ---
Pharmacy [place] Med Reconciliation Pharmacy Service has performed discharge medication reconciliation for this patient. The patient's discharge medication list was reviewed for discrepancies and discrepancies were resolved. Medications at Discharge Home Medications famotidine 20 mg tablet 20 mg PO QDAY 03/19/24 albuterol sulfate 90 mcg/actuation aerosol inhaler (ProAir HFA) 2 puff inhalation Q4-6H PRN shortness of breath or wheezing #8.5 grams 12/05/24 fluticasone fur. 200 mcg-umeclid 62.5 mcg-vilant 25 mcg inhalat.powder (Trelegy Ellipta) 1 inh inhalation Q24H #3 ea 12/09/24 atorvastatin 20 mg tablet (Lipitor) 20 mg PO .qd 01/14/25 guaifenesin 600 mg tablet, extended release 12 hr (Mucus Relief ER) 600 mg PO BID 03/31/25 Lactobacillus acidophilus 250 million cell capsule (Probiotic Acidophilus) 500 mmu cells PO DAILY 04/02/25
--- NOTE | 2025-04-02 10:51 | PCM.PN.ID ---
Physical Exam Narrative Feeling fine, no fever, no abd pain, stable dry cough Const alert and no apparent distress General Appearance: cooperative Resp normal air movement and clear to auscultation bilaterally Cardio regular rate and regular rhythm GI soft to palpation, non-tender and non-distended Skin no rashes or lesions noted ID ID: Route of nutrition/ use of supplements: [] Nutritional Intake: [] IV Site: [] Oden Catheter: [] Assessment & Plan Assessment/Plan (1) Intermittent FUO: PLAN: Reviewed [facility] records. H/o endocarditis with valve replacement 2017, but unable to see records back that far. TTE showed no sign infection. Bcx here ngtd. No focal symptoms. No fever for 6 weeks until past few days. Recent imaging with lung masses, biopsy planned; new cancer could be a potential explanation. No port in place. Not clear that these intermittent fevers and admit in 07/2024 with septic shock/pneumonia are all related to the same process. Ok for d/c home off of abx. D/w primary team. Will follow prn
[2025-04-03 14:09] LABS: EBV Acute VCA IgM < 36.0 U/mL (0.0-35.9); EBV-VCA IgG > 600.0 U/mL (0.0-17.9)
[2025-04-06 10:08] LABS: URINE HISTOPLASMA ANTIGEN Negative (<0.2 ng/mL)
== END 2025-04-02 12:11 | disposition home or self-care (01) ==
LOC: ED 20:27 → PCU 21:15
PROVIDERS: Internal Medicine Infectious Disease; Admitting Provider Internal Medicine; Emergency Provider Surgery; PCP Internal Medicine Infectious Disease; Visit Provider Internal Medicine
DX: R50.9 Fever, unspecified (principal); C91.11 Chronic lymphocytic leukemia of B-cell type in remission; J44.9 Chronic obstructive pulmonary disease, unspecified; N18.31 Chronic kidney disease, stage 3a; Z87.891 Personal history of nicotine dependence; E78.00 Pure hypercholesterolemia, unspecified; Z79.899 Other long term (current) drug therapy; Z79.51 Long term (current) use of inhaled steroids; R00.0 Tachycardia, unspecified; R91.8 Other nonspecific abnormal finding of lung field; Z92.21 Personal history of antineoplastic chemotherapy; K21.9 Gastro-esophageal reflux disease without esophagitis; Z95.2 Presence of prosthetic heart valve; D80.1 Nonfamilial hypogammaglobulinemia; N40.1 Benign prostatic hyperplasia with lower urinary tract symptoms; N13.8 Other obstructive and reflux uropathy; Z66 Do not resuscitate; I07.1 Rheumatic tricuspid insufficiency; I25.10 Atherosclerotic heart disease of native coronary artery without angina pectoris; E43 Unspecified severe protein-calorie malnutrition; Z68.20 Body mass index [BMI] 20.0-20.9, adult
CPT/HCPCS: 36415; 71046; 80053; 81001; 82784; 83605; 83735; 84100; 84145; 84484; 85025; 85610; 85652; 85730; 86140; 86664; 86665; 87040; 87086; 87385; 87497; 87631; 87633; 93005; 93306; 94640; 94668; 96361; 96365; 96366; 96368; 96372; 97802; 99221; 99252; 99284; A4216; G0378; G0463